=== PATIENT | female | born 1980 | race Caucasian/White ===

== ENCOUNTER 2018-03-25 13:42 | Emergency (ER) | payer MEDICAID, SELFPAY ==
[2018-03-25 13:46] VITALS: BP 133/96; PULSE 61; RESP 18; TEMP 36.1; O2SAT 97
--- NOTE | 2018-03-25 13:54 | DI.RPTCT_ITS ---
SYMPTOM/DIAGNOSIS: VOMITING, EPIGASTRIC ABD PAIN, H/O GASTRIC PERFORATION ABDOMEN AND PELVIC CT: CT scan of the abdomen and pelvis was performed following the uneventful administration of intravenous contrast material. Comparison is made with . Findings: The lung bases are clear. The liver is normal in size. No hepatic mass is seen. The gallbladder is negative by CT criteria. There is no biliary ductal dilatation. The portal and superior mesenteric veins are patent. The pancreas is unremarkable. Note is again made of heterogeneous enhancement of the spleen which appears stable. The kidneys show normal and symmetric enhancement. No evidence of a solid renal mass or obstruction. There is a 2 mm. stone in the mid pole of the left kidney. The urinary bladder is intact. The patient appears to be status post hysterectomy. The abdominal aorta is of normal caliber. No significant abdominal or pelvic adenopathy, ascites or pneumoperitoneum is seen. The bowel shows no evidence of obstruction or inflammation. There is a normal appendix present. The bones are intact. There is a stable fat density lesion in the left adrenal gland. The right adrenal gland is unremarkable. This finding is most suggestive of an adrenal myolipoma. IMPRESSION: 1. No acute abnormality. 2. Stable heterogeneous enhancement of the spleen. 3. Stable left adrenal myolipoma.
[2018-03-25] MEDS: Ondansetron 4 MG/2 ML VIAL IVP (14:36)
[2018-03-25] MEDS: MORPHine 10 MG/ML VIAL 4 MG IVP (14:37)
--- NOTE | 2018-03-25 14:38 | ED.GENADUL ---
Disposition Clinical Impression: Vomiting, Liver cyst Disposition: HOME Condition: Good Instructions: Acute Nausea and Vomiting (ED) Additional Instructions: Please stick with an easy diet over the next 48-72 hours. Please avoid any hot or spicy foods. Please stick to soups, mashed potatoes, bananas rice applesauce. Please take the medication as directed. If you notice any worsening of your symptoms, or any new symptoms such as vomiting, diarrhea, fever, chills, shortness of breath, chest pain, numbness, weakness, or fainting , please return immediately to the emergency department for reevaluation. Please follow up with your primary care provider as soon as possible for reassessment and reevaluation. As always, it was a pleasure participating in your medical care today. Prescriptions: Ondansetron HCl [Zofran] 4 mg PO Q6H #12 tablet Sucralfate [Carafate] 1 gm PO AC & HS #30 tab Referrals: Deyanira Marcus [Primary Care Provider] - Forms: Work Release Medical Decision Making - Medical Decision Making Is a 37-year-old female who presents for abdominal pain and vomiting for the last 24 hours. She has had roughly 48 episodes of vomiting per day. She has some associated epigastric pain. She has a history of gastric perforation in the past requiring surgical repair. Physical exam demonstrates a nonacute abdomen, no signs of rigid abdomen. We will rehydrate the patient, give Zofran, and assessed with a CT scan to evaluate for any acute abdominal pathology due to her surgical and problematic history. 5 PM The patient's laboratory workup has returned benign. Lipase, and bilirubin are normal. No significant leukocytosis. The patient's CT scan per virtual radiology shows no acute findings, there is chronic unchanged heterogenous attenuation of the liver possibly reflecting multiple underlying cysts. This appears to be stable since 2016. There is also a stable 1.4 cm adrenal myelolipoma. The patient is feeling much better at this time, she has had no continued vomiting. She has been able to tolerate p.o. well here in front of me. I feel that she is safe for discharge home with close follow-up with PCP. We will give her Zofran. We discussed red flags which to return the patient understands. Diagnosis gastritis and vomiting. I have extensively reviewed the treatment plan and discharge instructions with the patient and their family. I have addressed all patient concerns at this time. The patient and family was made aware of what symptoms to monitor for that would warrant a return to the emergency department. Discussed the plan with the patient and family, they demonstrate verbal understanding and agreement with our assessment and plan at this time. History of Present Illness - General Chief complaint: Nausea/Vomit/Diar Stated complaint: VOMITING Time Seen by Provider: 03/25/18 13:52 - History of Present Illness Initial comments: This is a pleasant 37-year-old female with past medical history of gastric ulcer with perforation and subsequent surgical revision, right-sided ACL repair and bilateral carpal tunnel repair who presents today for vomiting starting yesterday. She vomited 6-8 times yesterday and 4 times today. There is no blood in her vomit. No coffee-ground emesis. She has no associated diarrhea but does continue to have regular bowel movements. No blood noted in her stools. Her symptoms are not improved by anything. They do not appear to be worsened by anything. She has not been eating or drinking secondary to her chronic inconsistent nausea since her symptoms began. The patient does work at a local restaurant, however there are no other sick contacts, and she is not in contact with raw meat. She does admit to epigastric pain, but denies any radiation to her back neck chest lower abdomen. Patient denies any IV or illicit drug use. She denies any fevers chills numbness tingling or weakness. She denies any pertinent family history. She has no other complaints at this time. - Related Data Vitamin D 1 tab PO DAILY 06/30/16 Multivitamin [Multi-Vitamin Daily] 1 each PO DAILY 12/19/17 Acetaminophen [Acetaminophen Extra Strength] 500 mg PO Q6H PRN PRN #60 tablet 03/02/18 Ibuprofen 800 mg PO TID PRN PRN #60 tablet 03/02/18 Ondansetron HCl [Zofran] 4 mg PO Q6H #12 tablet 03/25/18 Sucralfate [Carafate] 1 gm PO AC & HS #30 tab 03/25/18 Allergies Allergy/AdvReac Type Severity Reaction Status Date / Time amoxicillin Allergy Severe Unverified 03/25/18 13:48 artichoke Allergy Severe ANAPHYLAXIS Unverified 03/25/18 13:48 Penicillins Allergy Intermediate HIVES Unverified 03/25/18 13:48 sodium hypochlorite solution Allergy Intermediate HIVES/SOB Unverified 03/25/18 13:48 [sodium hypochlorite] Review of Systems Other: 10 point review of systems was performed, pertinent positives and negatives are noted in the history of present illness. Past Medical History - Past Medical History Medical history: diabetes, GERD, hyperlipidemia, hypertension Surgical history: bilateral tubal ligation, , hysterectomy, other (multiple carpal tunnel surgery, knee surgery, T&A) - Social History Alcohol use: none Drug use: none General Exam - Other Other exam information: 1.Const: Well-nourished, Well-developed, appearing stated age 2.Eyes: PERRL, no conjunctival injection, and symmetrical lids. 3.ENT: Atraumatic external nose and ears. Dry MM. Neck: Symmetric, trachea midline, No thyromegaly. 4.CVS: +S1/S2, No murmurs or gallops. Peripheral pulses 2+ and equal in all extremities. Brisk capillary refill in all extremities. 5.RESP: Unlabored respiratory effort. Clear to auscultation bilaterally. No wheezes rales or rhonchi 6.GI: Soft, no guarding or rebound, no pain at McBurney's point, negative Peñaloza sign. Reproducible epigastric tenderness. No reproducible chest tenderness. No CVA tenderness or flank pain. Negative heel strike test. 7.MSK: Normocephalic/Atraumatic, Extremities w/o deformity or ttp No cyanosis or clubbing, Normal movement of all extremities 8.Skin: Warm, Dry. No rashes or lesions. 9.Neuro: manager asset management II-XII grossly intact. Sensation grossly intact, no focal neurologic deficits. 10.Psych: (AAO) x3. Appropriate mood and affect Course Vital Signs - 24 hr 03/25/18 13:46 Temperature 36.1 C L Pulse 61 Respiratory 18 Rate Blood Pressure 133/96 Pulse Oximetry 97
[2018-03-25] MEDS: Normal Saline 1,000 ML 2000 ML IV (14:40)
[2018-03-25 14:49] LABS: Abs Immature Grans 0.02 k/cumm (0.0-0.09); Absolute Basophil Count 0.04 k/cumm (0.0-0.2); Absolute Eosinophil Count 0.11 k/cumm (0.0-0.7); Absolute Lymphocyte Count 3.86 k/cumm (1.2-3.4); Absolute Monocyte Count 0.54 k/cumm (0.11-0.7); Basophils % 0.4; HGB 13.3 g/dL (12.0-15.5); Immature Grans % 0.2; Lymphocytes % 36.5; Mean Corp. HGB Concentration 34.1 g/dL (32.0-36.0); Mean Corpuscular Hemoglobin 29.2 pg (27.0-33.0); Mean Corpuscular Volume 85.7 fL (80-95); Mean Platelet Volume 10.6 fL (8.0-11.0); Monocytes % 5.1; Neutrophils % 56.8; Platelet Count 279 x1000/uL (130-400); RBC 4.55 m/cumm (4.00-5.20); RBC Distribution Width 12.5 % (11.7-14.6); White Blood Cell Count 10.57 k/cumm (4.4-10.8)
[2018-03-25 15:08] LABS: Bilirubin Negative (Negative); Blood Negative (Negative); Clarity Clear; Glucose Negative (Negative); Ketones Negative (Negative); Leukocyte Esterase Negative (Negative); Nitrite Negative (Negative); Urobilinogen 0.2 EU/dL (Up TO 0.2); pH 5.5 (5-8)
[2018-03-25 15:10] LABS: ALT 57 U/L (12-78); AST 32 U/L (15-37); Albumin 3.7 g/dL (3.4-5.0); Alkaline Phosphatase 89 U/L (46-116); Anion Gap 7.1 mmol/L (3-11); BUN 15 mg/dL (7-18); Bilirubin, Total 0.3 mg/dL (0.2-1.0); CO2 27.9 mmol/L (21.0-32.0); CREATININE 0.64 mg/dL (0.55-1.02); Calcium 9.5 mg/dL (8.5-10.1); Chloride 103 mmol/L (98-107); Glucose 100 mg/dL (70-100); Lipase 80 U/L (73-393); Potassium 4.1 mmol/L (3.5-5.1); Sodium 138 mmol/L (136-145); Total Protein 7.9 g/dL (6.4-8.2)
[2018-03-25] MEDS: Omnipaque 350 MG/ML 100 ML BTL IJ (15:13)
[2018-03-25] MEDS: Breeza Beverage 473 ML BTL PO (15:14)
[2018-03-25] MEDS: Omnipaque 350 MG/ML 50 ML BTL PO (15:14)
--- NOTE | 2018-03-25 16:19 | DI.VRAD_ITS ---
EXAM: CT Abdomen and Pelvis With Intravenous Contrast CLINICAL HISTORY: 37 years old, female; Pain; Abdominal pain; Epigastric; Patient HX: Vomiting, epigastric abdominal pain; Additional info: HX of gastric perf TECHNIQUE: Axial computed tomography images of the abdomen and pelvis with intravenous contrast. Coronal and sagittal reformatted images were created and reviewed. COMPARISON: CT - ABD PELVIS WITH CONTRAST 10/08/2016 9:27 AM FINDINGS: Lung bases: Unremarkable. No mass. No consolidation. ABDOMEN: Liver: Chronic unchanged heterogeneous attenuation of the liver, possibly reflecting multiple underlying cysts. Gallbladder and bile ducts: Unremarkable. No calcified stones. No ductal dilation. Pancreas: Unremarkable. No mass. No ductal dilation. Spleen: Unremarkable. No splenomegaly. Adrenals: Stable 1.4 cm fat density lesion in the left adrenal gland, likely a myelolipoma. Kidneys and ureters: Unremarkable. No solid mass. No hydronephrosis. Stomach and bowel: Unremarkable. No obstruction. No mucosal thickening. PELVIS: Appendix: The appendix is normal. Bladder: Unremarkable. No mass. Reproductive: The uterus is surgically absent. ABDOMEN and PELVIS: Intraperitoneal space: Unremarkable. No free air. No significant fluid collection. Bones/joints: No acute fracture. No dislocation. Soft tissues: Unremarkable. Vasculature: Unremarkable. No abdominal aortic aneurysm. Lymph nodes: Unremarkable. No enlarged lymph nodes. IMPRESSION: 1. No acute findings. 2. Chronic unchanged heterogeneous attenuation of the liver, possibly reflecting multiple underlying cysts. Although this is stable since 2016, if clinical concern recommend reevaluation with MRI abdomen. 3. Stable 1.4 cm left adrenal myelolipoma. Dictated and Authenticated by: Shlomo Turcios MD. Ordering:NATHAN MOLINA MD
[2018-03-25 16:47] VITALS: BP 106/40; PULSE 64; RESP 16; TEMP 207.5; TEMP 97.5; O2SAT 96
== END 2018-03-25 17:18 | disposition home or self-care (01) ==
PROVIDERS: Emergency Provider Student in an Organized Health Care Education/Training Program; PCP Nurse Practitioner Family
DX: R11.2 Nausea with vomiting, unspecified (principal); K29.00 Acute gastritis without bleeding; K76.89 Other specified diseases of liver; R10.13 Epigastric pain; E11.9 Type 2 diabetes mellitus without complications; I10 Essential (primary) hypertension
CPT/HCPCS: 36415; 80053; 83690; 96361; 96374; 96375; 99285; 74177; 81003; 85025; 99284; J2270; J2405; J3490; Q9967

== ENCOUNTER 2018-04-12 16:46 | Emergency (ER) | payer MEDICAID, SELFPAY ==
[2018-04-12 16:52] VITALS: BP 136/64; PULSE 79; RESP 16; TEMP 36.5; O2SAT 98
--- NOTE | 2018-04-12 17:06 | W.ED.GENAD ---
Discharge Plan Disposition Patient Disposition: HOME Condition: Stable Discharge Details Chief Complaint: Nausea/Vomit/Diar Clinical Impression: Nausea vomiting and diarrhea Primary Care Provider: Deyanira Marcus ED Provider: Alejandrina Angel Home Meds and New Rx's Prescriptions: New ondansetron [Zofran ODT] 4 mg tablet,disintegrating 4 mg PO TID PRN (Reason: nausea and vomiting) 3 Days Qty: 8 RF: 0 Continue multivitamin [Daily Multi-Vitamin] 1 EACH tablet 1 ea PO DAILY RF: 0 cholecalciferol (vitamin D3) 1,000 UNITS tablet 1 tab PO DAILY RF: 0 ibuprofen 800 MG tablet 800 mg PO TID PRN PRNQty: 60 RF: 0 acetaminophen [Acetaminophen Extra Strength] 500 MG tablet 500 mg PO Q6H PRN PRNQty: 60 RF: 3 sucralfate 1 GM tablet 1 gm PO AC & HS Qty: 30 RF: 0 Discontinued ondansetron HCl [Zofran] 4 MG tablet 4 mg PO Q6H Qty: 12 RF: 0 Discharge Instructions Instructions: Ondansetron (By mouth), Acute Nausea and Vomiting (ED), Acute Diarrhea (ED) Additional Instructions: Please return immediately to the emergency department if you develop any new or worsening symptoms or if you become otherwise concerned. It is extremely important that you make an appointment to be seen by your primary care doctor within the next week in follow-up for this visit. Stand Alone Forms: Work Release Referrals: Deyanira Marcus [Primary Care Provider] - Discharge Data Discharge Date/Time-TO BE ENTERED AT DEPARTURE: 04/12/18 21:06 Medical Decision Making MDM Narrative Medical decision making narrative: Dawn Dunn is a 37 y/o woman with h/o DM controlled by diet, HLD presenting to the emergency department with 3 weeks of vomiting, diarrhea, and intermittent crampy abdominal pain. Pt is very well-appearing on exam. Abdominal exam benign, neg McBpt TTP, neg murphys. Pt declines rectal exam. Concern for gastroenteritis vs IBD vs other. Doubt acute emergent intra-abdominal process at this time. Exam/hx not c/w sepsis or other acute life-threatening etiology. Plan for screening labs, IVF hydration, zofran, stool cx. Will monitor and reassess. Labs non-diagnostic: leukocytosis. LFTs, lipase, UA okay. Upreg neg per nursing. On reassessment Pt reports feeling better after fluids and zofran. No vomiting or diarrhea during ED visit. Passed PO challenge. Discussed unclear etiology at this time, CT risks/benefits discussed, unlikely to be diagnostic given recent neg CT, no abd TTP. Pt could not provide stool sample, will give sample cup that she can return to lab for testing. Rx zofran. lengtyh discussion with Pt re: RTED precautions and importance of outpt f/u with PCP. Pt is amenable to the plan. Medical Records Medical records reviewed: Yes I reviewed the patient's medical records. HPI - General Adult General Mode of arrival: ambulatory. Date/Time Provider Initiated Documentation: 04/12/18 17:06. Limitations to Documentation: no limitations. Information obtained by: patient, family, RN notes reviewed and old records reviewed. HPI Narrative: Dawn Dunn is a 37 y/o woman without reported h/o major medical problems presenting to the emergency department with 3 weeks of vomiting and diarrhea. Pt reports that she has had daily vomiting and watery diarrhea essentially unchanged for the past 3 weeks. She has been seen here for this with CT a/p negative, and discharged to home, and also has seen her PCP. Emesis is watery and clear. Diarrhea is watery light brown. No dark or bloody stools/emesis. Pt reports some crampy abdominal pain at times, but no current pain. No other pain. Has had stool cultures at this time. Zofran at home has been helpful. Has been able to drink fluids without vomiting. No fevers, no rash, no SOB, no cough. No recent travel or drinking water from unusual source. Has not taken abx for this. Related Data Home Medications Medication Instructions Recorded Confirmed cholecalciferol (vitamin D3) 1 tab PO DAILY 06/30/16 04/12/18 multivitamin [Daily Multi-Vitamin] 1 ea PO DAILY 12/19/17 04/12/18 Previous Rx's Medication Instructions Recorded acetaminophen [Acetaminophen Extra 500 mg PO Q6H PRN PRN #60 tablet 03/02/18 Strength] ibuprofen 800 mg PO TID PRN PRN #60 tablet 03/02/18 sucralfate 1 gm PO AC & HS #30 tab 03/25/18 ondansetron [Zofran ODT] 4 mg PO TID PRN 3 Days #8 tab 04/12/18 Allergies Allergy/AdvReac Type Severity Reaction Status Date / Time amoxicillin Allergy Severe Unverified 04/12/18 16:55 artichoke Allergy Severe ANAPHYLAXIS Unverified 04/12/18 16:55 Penicillins Allergy Intermediate HIVES Unverified 04/12/18 16:55 sodium hypochlorite solution Allergy Intermediate HIVES/SOB Unverified 04/12/18 16:55 [sodium hypochlorite] General Stated Complaint: Nausea/Vomit/Diar MIKE: 3 Review of Systems Review of Systems Constitutional: denies fevers Eyes: denies eye pain ENT: denies facial pain, dental pain, sore throat Cardiovascular: denies chest pain, edema Respiratory: denies SOB, cough GI: denies melena, hematochezia, hematemesis; reports abdominal pain, vomiting, diarrhea : denies flank pain, dysuria MSK: denies back pain, neck pain, arhtralgias, myalgias Skin: denies rash Neuro: denies headaches, lightheadedness, weakness PFSH Medical History Anxiety and depression Asthma Diabetes mellitus, type 2 Elevated lipids Migraine Obstructive sleep apnea syndrome Polycystic ovaries Social History Smoking/Tobacco Use Status: Former Tobacco Use Surgical History section Colonoscopy - MAC (11/26/16) EGD - MAC (11/26/16) Endoscopic Carpal Tunnel release (01/14/09) Ligation of fallopian tube Open Carpal Tunnel release (10/23/12) Vaginal hysterectomy anterior cruciate ligament reconstruction Exam Narrative Exam Narrative: Constitutional: well and [id number], pleasant, conversing normally HENT: head atraumatic, normocephalic normal inspection, mucous membranes moist Eyes: conjunctiva normal, sclera normal, pupils 3mm b/l Neck: no stridor, normal ROM, trachea midline Chest: normal inspection Resp: normal work of breathing, LCTAB Cardio: normal rate, normal rhythm, no murmur appreciated GI: abdomen soft, non-tender, non-distended Back: normal inspection, no rash Skin: warm, dry, normal color, no rash Neuro: alert, not altered, grossly non-focal, normal tone Ext: no edema Psych: normal mood, normal affect, normal behavior Course Vital Signs Temperature 36.5 C 04/12/18 16:52 Pulse 79 04/12/18 16:52 Respiratory Rate 16 04/12/18 16:52 Blood Pressure 136/64 04/12/18 16:52 Pulse Oximetry 98 04/12/18 16:52 Temperature 36.5 C 04/12/18 16:52 Pulse 79 04/12/18 16:52 Respiratory Rate 16 04/12/18 16:52 Blood Pressure 136/64 04/12/18 16:52 Pulse Oximetry 98 04/12/18 16:52
[2018-04-12] MEDS: Normal Saline 1,000 ML 1000 ML IV (18:10)
[2018-04-12 19:25] LABS: Bilirubin Negative (Negative); Blood Negative (Negative); Clarity Clear; Glucose Negative (Negative); Ketones Negative (Negative); Leukocyte Esterase Negative (Negative); Nitrite Negative (Negative); Urobilinogen 0.2 EU/dL (Up TO 0.2); pH 7.5 (5-8)
[2018-04-12 19:25] LABS: Abs Immature Grans 0.03 k/cumm (0.0-0.09); Absolute Basophil Count 0.03 k/cumm (0.0-0.2); Absolute Monocyte Count 0.91 k/cumm (0.11-0.7); Basophils % 0.2; Eosinophils % 0.7; HCT 40.5 % (36.0-46.0); HGB 13.9 g/dL (12.0-15.5); Immature Grans % 0.2; Lymphocytes % 33.4; Mean Corp. HGB Concentration 34.3 g/dL (32.0-36.0); Mean Corpuscular Hemoglobin 29.2 pg (27.0-33.0); Mean Corpuscular Volume 85.1 fL (80-95); Mean Platelet Volume 10.5 fL (8.0-11.0); Monocytes % 6.5; Platelet Count 286 x1000/uL (130-400); RBC 4.76 m/cumm (4.00-5.20); RBC Distribution Width 12.8 % (11.7-14.6); White Blood Cell Count 14.07 k/cumm (4.4-10.8)
[2018-04-12 19:51] LABS: ALT 45 U/L (12-78); AST 26 U/L (15-37); Albumin 3.7 g/dL (3.4-5.0); Alkaline Phosphatase 82 U/L (46-116); Anion Gap 5.9 mmol/L (3-11); BUN 11 mg/dL (7-18); Bilirubin, Total 0.4 mg/dL (0.2-1.0); CO2 29.1 mmol/L (21.0-32.0); CREATININE 0.66 mg/dL (0.55-1.02); Chloride 104 mmol/L (98-107); Glucose 86 mg/dL (70-100); Potassium 3.7 mmol/L (3.5-5.1); Sodium 139 mmol/L (136-145); Total Protein 8.4 g/dL (6.4-8.2)
[2018-04-12 20:00] VITALS: BP 140/77; PULSE 80; RESP 18; TEMP 36.3; O2SAT 96
[2018-04-12 20:00] LABS: Lipase 95 U/L (73-393)
[2018-04-12 21:09] VITALS: BP 135/66; PULSE 71; RESP 16; TEMP 36.5; O2SAT 98
--- NOTE | 2018-04-13 09:52 | ED.GENADUL_ITS ---
Discharge Plan Disposition Patient Disposition: HOME Condition: Stable Discharge Details Chief Complaint: Nausea/Vomit/Diar Clinical Impression: Nausea vomiting and diarrhea Primary Care Provider: Deyanira Marcus ED Provider: Alejandrina Angel Home Meds and New Rx's Prescriptions: New ondansetron [Zofran ODT] 4 mg tablet,disintegrating 4 mg PO TID PRN (Reason: nausea and vomiting) 3 Days Qty: 8 RF: 0 Continue multivitamin [Daily Multi-Vitamin] 1 EACH tablet 1 ea PO DAILY RF: 0 cholecalciferol (vitamin D3) 1,000 UNITS tablet 1 tab PO DAILY RF: 0 ibuprofen 800 MG tablet 800 mg PO TID PRN PRNQty: 60 RF: 0 acetaminophen [Acetaminophen Extra Strength] 500 MG tablet 500 mg PO Q6H PRN PRNQty: 60 RF: 3 sucralfate 1 GM tablet 1 gm PO AC & HS Qty: 30 RF: 0 Discontinued ondansetron HCl [Zofran] 4 MG tablet 4 mg PO Q6H Qty: 12 RF: 0 Discharge Instructions Instructions: Ondansetron (By mouth), Acute Nausea and Vomiting (ED), Acute Diarrhea (ED) Additional Instructions: Please return immediately to the emergency department if you develop any new or worsening symptoms or if you become otherwise concerned. It is extremely important that you make an appointment to be seen by your primary care doctor within the next week in follow-up for this visit. Stand Alone Forms: Work Release Referrals: Deyanira Marcus [Primary Care Provider] - Discharge Data Discharge Date/Time-TO BE ENTERED AT DEPARTURE: 04/12/18 21:06 Medical Decision Making MDM Narrative Medical decision making narrative: Dawn Dunn is a 37 y/o woman with h/o DM controlled by diet, HLD presenting to the emergency department with 3 weeks of vomiting, diarrhea, and intermittent crampy abdominal pain. Pt is very well- appearing on exam. Abdominal exam benign, neg McBpt TTP, neg murphys. Pt declines rectal exam. Concern for gastroenteritis vs IBD vs other. Doubt acute emergent intra-abdominal process at this time. Exam/hx not c/w sepsis or other acute life-threatening etiology. Plan for screening labs, IVF hydration, zofran , stool cx. Will monitor and reassess. Labs non-diagnostic: leukocytosis. LFTs, lipase, UA okay. Upreg neg per nursing. On reassessment Pt reports feeling better after fluids and zofran. No vomiting or diarrhea during ED visit. Passed PO challenge. Discussed unclear etiology at this time, CT risks/benefits discussed, unlikely to be diagnostic given recent neg CT, no abd TTP. Pt could not provide stool sample, will give sample cup that she can return to lab for testing. Rx zofran. lengtyh discussion with Pt re: RTED precautions and importance of outpt f/u with PCP. Pt is amenable to the plan. Medical Records Medical records reviewed: Yes I reviewed the patient's medical records. HPI - General Adult General Mode of arrival: ambulatory . Date/Time Provider Initiated Documentation: 04/12/18 17:06 . Limitations to Documentation: no limitations . Information obtained by: patient, family, RN notes reviewed and old records reviewed . HPI Narrative: Dawn Dunn is a 37 y/o woman without reported h/o major medical problems presenting to the emergency department with 3 weeks of vomiting and diarrhea. Pt reports that she has had daily vomiting and watery diarrhea essentially unchanged for the past 3 weeks. She has been seen here for this with CT a/p negative, and discharged to home, and also has seen her PCP. Emesis is watery and clear. Diarrhea is watery light brown. No dark or bloody stools/emesis. Pt reports some crampy abdominal pain at times, but no current pain. No other pain. Has had stool cultures at this time. Zofran at home has been helpful. Has been able to drink fluids without vomiting. No fevers, no rash , no SOB, no cough. No recent travel or drinking water from unusual source. Has not taken abx for this. Related Data Home Medications Medication Instructions Recorded Confirmed cholecalciferol (vitamin D3) 1 tab PO DAILY 06/30/16 04/12/18 multivitamin [Daily Multi-Vitamin] 1 ea PO DAILY 12/19/17 04/12/18 Previous Rx's Medication Instructions Recorded acetaminophen [Acetaminophen Extra 500 mg PO Q6H PRN PRN #60 tablet 03/02/18 Strength] ibuprofen 800 mg PO TID PRN PRN #60 tablet 03/02/18 sucralfate 1 gm PO AC & HS #30 tab 03/25/18 ondansetron [Zofran ODT] 4 mg PO TID PRN 3 Days #8 tab 04/12/18 Allergies Allergy/AdvReac Type Severity Reaction Status Date / Time amoxicillin Allergy Severe Unverified 04/12/18 16:55 artichoke Allergy Severe ANAPHYLAXIS Unverified 04/12/18 16:55 Penicillins Allergy Intermediate HIVES Unverified 04/12/18 16:55 sodium hypochlorite solution Allergy Intermediate HIVES/SOB Unverified 04/12/18 16:55 [sodium hypochlorite] General Stated Complaint: Nausea/Vomit/Diar MIKE: 3 Review of Systems Review of Systems Constitutional: denies fevers Eyes: denies eye pain ENT: denies facial pain, dental pain, sore throat Cardiovascular: denies chest pain, edema Respiratory: denies SOB, cough GI: denies melena, hematochezia, hematemesis; reports abdominal pain, vomiting, diarrhea : denies flank pain, dysuria MSK: denies back pain, neck pain, arhtralgias, myalgias Skin: denies rash Neuro: denies headaches, lightheadedness, weakness PFSH Medical History Anxiety and depression Asthma Diabetes mellitus, type 2 Elevated lipids Migraine Obstructive sleep apnea syndrome Polycystic ovaries Social History Smoking/Tobacco Use Status: Former Tobacco Use Surgical History section Colonoscopy - MAC (11/26/16) EGD - MAC (11/26/16) Endoscopic Carpal Tunnel release (01/14/09) Ligation of fallopian tube Open Carpal Tunnel release (10/23/12) Vaginal hysterectomy anterior cruciate ligament reconstruction Exam Narrative Exam Narrative: Constitutional: well and [id number], pleasant, conversing normally HENT: head atraumatic, normocephalic normal inspection, mucous membranes moist Eyes: conjunctiva normal, sclera normal, pupils 3mm b/l Neck: no stridor, normal ROM, trachea midline Chest: normal inspection Resp: normal work of breathing, LCTAB Cardio: normal rate, normal rhythm, no murmur appreciated GI: abdomen soft, non-tender, non-distended Back: normal inspection, no rash Skin: warm, dry, normal color, no rash Neuro: alert, not altered, grossly non-focal, normal tone Ext: no edema Psych: normal mood, normal affect, normal behavior Course Vital Signs Temperature 36.5 C 04/12/18 16:52 Pulse 79 04/12/18 16:52 Respiratory Rate 16 04/12/18 16:52 Blood Pressure 136/64 04/12/18 16:52 Pulse Oximetry 98 04/12/18 16:52 Temperature 36.5 C 04/12/18 16:52 Pulse 79 04/12/18 16:52 Respiratory Rate 16 04/12/18 16:52 Blood Pressure 136/64 04/12/18 16:52 Pulse Oximetry 98 04/12/18 16:52
== END 2018-04-12 21:06 | disposition home or self-care (01) ==
PROVIDERS: Emergency Provider Student in an Organized Health Care Education/Training Program; PCP Nurse Practitioner Family
DX: R11.2 Nausea with vomiting, unspecified (principal); R19.7 Diarrhea, unspecified; D72.829 Elevated white blood cell count, unspecified; E11.9 Type 2 diabetes mellitus without complications
CPT/HCPCS: 36415; 80053; 81025; 83690; 87505; 96360; 99284; 81003; 85025; 87324

== ENCOUNTER 2018-04-13 11:05 | Outpatient (REF) | payer MEDICAID, SELFPAY ==
[2018-04-14 11:44] LABS: Campylobacter PCR SEE COMMENTS; Salmonella PCR SEE COMMENTS; Shiga Toxin PCR SEE COMMENTS; Shigella/Enteroinvasive Ecoli SEE COMMENTS
== END 2018-04-13 11:25 ==
LOC: LBN 11:05
PROVIDERS: PCP Nurse Practitioner Family; Visit Provider Student in an Organized Health Care Education/Training Program
DX: R19.7 Diarrhea, unspecified (principal); R10.84 Generalized abdominal pain; R11.10 Vomiting, unspecified
CPT/HCPCS: 87505; 87324

== ENCOUNTER 2018-04-24 18:00 | Outpatient (REF) | payer MEDICAID, SELFPAY ==
[2018-04-24 22:51] LABS: TSH (W/Ref FT4) 1.04 uIU/mL (0.358-3.74)
== END 2018-04-24 18:20 ==
LOC: NCHCN 18:00
PROVIDERS: PCP Nurse Practitioner Family; Visit Provider Nurse Practitioner Family
DX: R11.2 Nausea with vomiting, unspecified (principal)
CPT/HCPCS: 84443

== ENCOUNTER 2018-05-29 11:22 | Outpatient (CLI) | payer MEDICAID, SELFPAY ==
--- NOTE | 2018-05-29 11:17 | DI.RAD_ITS ---
SYMPTOM/DIAGNOSIS: RT WRIST PAIN CERVICAL SPINE: AP, lateral and bilateral oblique views were obtained. Comparison CT scan is . There is normal alignment of the cervical spine. The odontoid appears grossly unremarkable on the AP and lateral views. No acute fractures or subluxations are seen. No significant neural foraminal encroachment is identified. The bones are normally mineralized. The prevertebral soft tissues are unremarkable. IMPRESSION: Negative cervical spine. If there are radicular concerns, an MRI should be considered for further evaluation.
== END 2018-05-29 11:42 ==
PROVIDERS: PCP Nurse Practitioner Family; Visit Provider Student in an Organized Health Care Education/Training Program
DX: M25.531 Pain in right wrist (principal); G56.03 Carpal tunnel syndrome, bilateral upper limbs
CPT/HCPCS: 72050

== ENCOUNTER 2018-07-06 18:24 | Emergency (ER) | payer MEDICAID, SELFPAY ==
[2018-07-06 18:30] VITALS: BP 142/97; PULSE 82; RESP 17; TEMP 36.2; O2SAT 97
--- NOTE | 2018-07-06 18:37 | W.ED.GENAD ---
Discharge Plan Disposition Patient Disposition: HOME Condition: Good Discharge Details Chief Complaint: Nausea/Vomit/Diar Clinical Impression: Nausea & vomiting Primary Care Provider: Deyanira Marcus ED Provider: Dustin Blanco Home Meds and New Rx's Prescriptions: New ondansetron HCl [Zofran] 4 mg tablet 4 mg PO TID PRN (Reason: nausea and vomiting) 5 Days RF: 0 Continue multivitamin [Daily Multi-Vitamin] 1 EACH tablet 1 ea PO DAILY RF: 0 cholecalciferol (vitamin D3) 1,000 UNITS tablet 1 tab PO DAILY RF: 0 ibuprofen 800 MG tablet 800 mg PO TID PRN PRNQty: 60 RF: 0 acetaminophen [Acetaminophen Extra Strength] 500 MG tablet 500 mg PO Q6H PRN PRNQty: 60 RF: 3 sucralfate 1 GM tablet 1 gm PO AC & HS Qty: 30 RF: 0 Discharge Instructions Additional Instructions: follow up with your primary care provider if symptoms continue next week if you have severe abdominal pain or persistent vomit return to the emergency department Stand Alone Forms: Work Release Medical Decision Making pt states today she has had chills and intermittent nausea and vomit. Denies abdominal pain, chset pain, sob, recent travel or new foods that she is aware of. She denies any new meds. She has no abdominal tenderness on exam or distention. She is well hydrated on exam with stable vital signs so do not feel IV fluids indicated. She has tried zofran at home with minimal relief, will trymetoclopramide. She has no exam findings to suggest acute abdominal pathology so do not feel workup for pancreatitis or surgical pathology at this time indicated. No chest pain or pressure to suggest acs. pt given zofran as well and now is tolerating PO. Still no abdominal pain so do not feel labs or imaging dindicated Differential Diagnosis viral illness, food related illness HPI General Mode of arrival: ambulatory. Date/Time Provider Initiated Documentation: 07/06/18 18:26. Limitations to Documentation: no limitations. Information obtained by: patient. History of Present Illness 38 year old F presents to the emergency department with the chief complaint of nausea and vomit, described as moderate, with intensity rated at 4. Patient reports no radiation. Patient started experiencing this day(s) (1) and it has been constant. No relieving factors improve symptom(s), No exacerbating factors reported . Patient did receive the following treatments prior to arrival, none Related Data Home Medications Medication Instructions Recorded Confirmed cholecalciferol (vitamin D3) 1 tab PO DAILY 06/30/16 04/12/18 multivitamin [Daily Multi-Vitamin] 1 ea PO DAILY 12/19/17 04/12/18 acetaminophen [Acetaminophen Extra 500 mg PO Q6H PRN PRN #60 tablet 03/02/18 04/12/18 Strength] ibuprofen 800 mg PO TID PRN PRN #60 tablet 03/02/18 04/12/18 sucralfate 1 gm PO AC & HS #30 tab 03/25/18 04/12/18 ondansetron HCl [Zofran] 4 mg PO TID PRN 5 Days tab 07/06/18 Previous Rx's Medication Instructions Recorded acetaminophen [Acetaminophen Extra 500 mg PO Q6H PRN PRN #60 tablet 03/02/18 Strength] ibuprofen 800 mg PO TID PRN PRN #60 tablet 03/02/18 sucralfate 1 gm PO AC & HS #30 tab 03/25/18 ondansetron HCl [Zofran] 4 mg PO TID PRN 5 Days tab 07/06/18 Allergies Allergy/AdvReac Type Severity Reaction Status Date / Time amoxicillin Allergy Severe Unverified 04/12/18 16:55 artichoke Allergy Severe ANAPHYLAXIS Unverified 04/12/18 16:55 Penicillins Allergy Intermediate HIVES Unverified 04/12/18 16:55 sodium hypochlorite solution Allergy Intermediate HIVES/SOB Unverified 04/12/18 16:55 [sodium hypochlorite] General Stated Complaint: Nausea/Vomit/Diar MIKE: 5 Review of Systems Review of Systems All systems reviewed & are unremarkable except as noted in HPI and below Constitutional Denies fever(s) and Denies weakness ENT Denies change in voice Cardiovascular Denies chest pain and Denies dyspnea Respiratory Denies dyspnea Gastrointestinal Denies abdominal pain Genitourinary Denies dysuria Musculoskeletal Denies joint swelling Integumentary/Breasts Denies rash Neurologic Denies weakness PFSH Anxiety and depression Asthma Diabetes mellitus, type 2 Elevated lipids Migraine Obstructive sleep apnea syndrome Polycystic ovaries Medical History Anxiety and depression Asthma Diabetes mellitus, type 2 Elevated lipids Migraine Obstructive sleep apnea syndrome Polycystic ovaries Social History Smoking/Tobacco Use Status: Former Tobacco Use Surgical History section Colonoscopy - MAC (11/26/16) EGD - MAC (11/26/16) Endoscopic Carpal Tunnel release (01/14/09) Ligation of fallopian tube Open Carpal Tunnel release (10/23/12) Vaginal hysterectomy anterior cruciate ligament reconstruction Social History Smoking/Tobacco Use Status: Former Tobacco Use Exam Const General: no acute distress Orientation: alert HENMT Head: normal to inspection Ears: external ears normal General nose exam: external nose normal Mouth: moist mucous membranes Eyes General: appearance normal, both eyes and all related structures Neck Neck: normal visual inspection Resp Effort & Inspection: normal respiratory effort and able to speak in complete sentences Cardio Rate: regular rate Skin General skin exam: no rashes or lesions noted Neuro General: alert and oriented x3 Extrem General: normal to inspection Psych Mental Status: mental status grossly normal Course Vital Signs Temperature 36.2 C L 07/06/18 18:30 Pulse 82 07/06/18 18:30 Respiratory Rate 17 07/06/18 18:30 Blood Pressure 142/97 H 07/06/18 18:30 Pulse Oximetry 97 07/06/18 18:30 Temperature 36.2 C L 07/06/18 18:30 Temperature Source Skin 07/06/18 18:30 Pulse 82 07/06/18 18:30 Respiratory Rate 17 07/06/18 18:30 Respiratory Effort 07/06/18 18:34 Blood Pressure 142/97 H 07/06/18 18:30 Blood Pressure Position Sitting 07/06/18 18:30 Pulse Oximetry 97 07/06/18 18:30 Oxygen Delivery Method Room Air 07/06/18 18:30 Oxygen Flow Rate 0 07/06/18 18:30 Pain Level 0 07/06/18 18:30
[2018-07-06] MEDS: Metoclopramide 10 MG TAB PO (18:41)
[2018-07-06] MEDS: Ondansetron O.D.T. 4 MG TABEF PO (18:56)
[2018-07-06 19:22] VITALS: TEMP 37.2
== END 2018-07-06 19:22 | disposition home or self-care (01) ==
PROVIDERS: Emergency Provider Emergency Medicine; PCP Nurse Practitioner Family
DX: R11.2 Nausea with vomiting, unspecified (principal); R50.9 Fever, unspecified; E11.9 Type 2 diabetes mellitus without complications
CPT/HCPCS: 99283

== ENCOUNTER 2018-08-08 16:28 | Outpatient (REF) | payer MEDICAID, SELFPAY ==
[2018-08-08 21:30] LABS: Abs Immature Grans 0.02 k/cumm (0.0-0.09); Absolute Basophil Count 0.03 k/cumm (0.0-0.2); Absolute Eosinophil Count 0.09 k/cumm (0.0-0.7); Absolute Lymphocyte Count 4.61 k/cumm (1.2-3.4); Absolute Monocyte Count 0.83 k/cumm (0.11-0.7); Basophils % 0.3; Eosinophils % 0.8; HCT 44.9 % (36.0-46.0); HGB 14.9 g/dL (12.0-15.5); Immature Grans % 0.2; Lymphocytes % 42.3; Mean Corp. HGB Concentration 33.2 g/dL (32.0-36.0); Mean Corpuscular Hemoglobin 29.2 pg (27.0-33.0); Mean Platelet Volume 11.8 fL (8.0-11.0); Monocytes % 7.6; Neutrophils % 48.8; Platelet Count 305 x1000/uL (130-400); RBC Distribution Width 12.9 % (11.7-14.6); White Blood Cell Count 10.91 k/cumm (4.4-10.8)
[2018-08-08 21:57] LABS: Absolute Neutrophil Count 5.32 k/cumm (1.2-6.7)
[2018-08-08 22:02] LABS: Iron 90 ug/dL (50-175); Total Iron Binding Capacity 299 ug/dL (250-450); Transferrin Sat 30 % (15-50)
[2018-08-08 22:13] LABS: Anion Gap 8.1 mmol/L (3-11); BUN 11 mg/dL (7-18); CO2 29.9 mmol/L (21.0-32.0); Calcium 9.6 mg/dL (8.5-10.1); Chloride 102 mmol/L (98-107); Ferritin 177 ng/mL (8-388); Glucose 143 mg/dL (70-100); Magnesium 1.9 mg/dL (1.8-2.4); Potassium 4.4 mmol/L (3.5-5.1); Sodium 140 mmol/L (136-145); TSH (W/Ref FT4) 1.35 uIU/mL (0.358-3.74)
== END 2018-08-08 16:48 ==
LOC: NCHCN 16:28
PROVIDERS: PCP Nurse Practitioner Family; Visit Provider Nurse Practitioner Family
DX: R42 Dizziness and giddiness (principal); R11.2 Nausea with vomiting, unspecified
CPT/HCPCS: 80048; 82728; 83540; 83550; 83735; 84443; 85025

== ENCOUNTER 2018-08-21 14:19 | Emergency (ER) | payer MEDICAID, SELFPAY ==
[2018-08-21 14:25] VITALS: BP 128/46; PULSE 52; RESP 16; TEMP 37; O2SAT 98
--- NOTE | 2018-08-21 14:49 | W.ED.GENAD ---
Discharge Plan Disposition Patient Disposition: HOME Discharge Details Chief Complaint: Orthopedic Clinical Impression: Frostbite of finger of right hand, Frostnip Primary Care Provider: Deyanira Marcus ED Provider: Jeanmarie Angel Home Meds and New Rx's Prescriptions: Continued multivitamin [Daily Multi-Vitamin] 1 EACH tablet 1 ea PO DAILY RF: 0 ibuprofen 800 MG tablet 800 mg PO TID PRN PRNQty: 60 RF: 0 acetaminophen [Acetaminophen Extra Strength] 500 MG tablet 500 mg PO Q6H PRN PRNQty: 60 RF: 3 Discharge Instructions Instructions: Frostbite (ED) Additional Instructions: Keep fingers and toes warm. DO NOT ALLOW ANY EXPOSURE TO COLD. Please contact your primary care physician to arrange follow-up. Return to the ER for any worsening or new concerning symptoms. Referrals: Deyanira Marcus [Primary Care Provider] - Medical Decision Making 38-year-old female here with small area of frostbite of her distal right fourth digit and likely frostnip of her left first and second toes. Nonocclusive dressing applied to right fourth digit. I advised patient to follow-up with her primary care physician and to protect digits and protect from additional exposure. Patient was instructed to return for any worsening or new concerning symptoms. HPI General Mode of arrival: ambulatory. Date/Time Provider Initiated Documentation: 08/21/18 14:23. Limitations to Documentation: no limitations. Information obtained by: patient. HPI Narrative: 38-year-old female presents with chief complaint of cold exposure injury. Patient notes she was outside [facility] earlier today and noticed that her right fingers and toes were hurting her. She went inside and noticed white skin discoloration to her right fourth digit as well as her left first and second toes. She warmed her extremities up in a warm bath. Her toes have had return of color but are still painful. Her right fourth digit has continued to have a small area of discoloration and is painful. Pain is moderate. Worse on palpation. Related Data Home Medications Medication Instructions Recorded Confirmed multivitamin [Daily Multi-Vitamin] 1 ea PO DAILY 12/19/17 08/21/18 acetaminophen [Acetaminophen Extra 500 mg PO Q6H PRN PRN #60 tablet 03/02/18 08/21/18 Strength] ibuprofen 800 mg PO TID PRN PRN #60 tablet 03/02/18 08/21/18 Previous Rx's Medication Instructions Recorded acetaminophen [Acetaminophen Extra 500 mg PO Q6H PRN PRN #60 tablet 03/02/18 Strength] ibuprofen 800 mg PO TID PRN PRN #60 tablet 03/02/18 Allergies Allergy/AdvReac Type Severity Reaction Status Date / Time amoxicillin Allergy Severe Unverified 08/21/18 14:28 artichoke Allergy Severe ANAPHYLAXIS Unverified 08/21/18 14:28 Penicillins Allergy Intermediate HIVES Unverified 08/21/18 14:28 sodium hypochlorite solution Allergy Intermediate HIVES/SOB Unverified 08/21/18 14:28 [sodium hypochlorite] General Stated Complaint: Orthopedic MIKE: 4 Review of Systems Integumentary/Breasts Reports as per [facility] Medical History Anxiety and depression Asthma Diabetes mellitus, type 2 Elevated lipids Migraine Obstructive sleep apnea syndrome Polycystic ovaries Surgical History section Colonoscopy - MAC (11/26/16) EGD - MAC (11/26/16) Endoscopic Carpal Tunnel release (01/14/09) Ligation of fallopian tube Open Carpal Tunnel release (10/23/12) Vaginal hysterectomy anterior cruciate ligament reconstruction Social History Smoking/Tobacco Use Status: Former Tobacco Use Exam Const General: cooperative and no acute distress Cardio Rate: regular rate and not tachycardic Rhythm: regular rhythm Pulses: radial pulses present on the right 2+ and dorsalis pedis pulses present on the left 2+ Skin General skin exam: no rashes or lesions noted Lesions: lesion noted (5mm circular white discoloration distal finger tip right 4th digit) Extrem General: no edema Right lower extremity: foot Details: normal capillary refill and normal to inspection Left lower extremity: foot Details: normal capillary refill, tenderness (1-2 toes) and motor-sensory exam Details: light-touch normal; no edema Course Vital Signs Temperature 37 C 08/21/18 14:25 Pulse 52 L 08/21/18 14:25 Respiratory Rate 16 08/21/18 14:25 Blood Pressure 128/46 L 08/21/18 14:25 Pulse Oximetry 98 08/21/18 14:25 Temperature 37 C 08/21/18 14:25 Temperature Source Skin 08/21/18 14:25 Pulse 52 L 08/21/18 14:25 Respiratory Rate 16 08/21/18 14:25 Respiratory Effort Non-Labored 08/21/18 14:25 Blood Pressure 128/46 L 08/21/18 14:25 Blood Pressure Position Sitting 08/21/18 14:25 Pulse Oximetry 98 08/21/18 14:25 Oxygen Delivery Method Room Air 08/21/18 14:25 Oxygen Flow Rate 0 08/21/18 14:25 Pain Level 5 08/21/18 14:30
--- NOTE | 2018-08-21 14:56 | ED.GENADUL_ITS ---
Discharge Plan Disposition Patient Disposition: HOME Discharge Details Chief Complaint: Orthopedic Clinical Impression: Frostbite of finger of right hand, Frostnip Primary Care Provider: Deyanira Marcus ED Provider: Jeanmarie Angel Home Meds and New Rx's Prescriptions: Continued multivitamin [Daily Multi-Vitamin] 1 EACH tablet 1 ea PO DAILY RF: 0 ibuprofen 800 MG tablet 800 mg PO TID PRN PRNQty: 60 RF: 0 acetaminophen [Acetaminophen Extra Strength] 500 MG tablet 500 mg PO Q6H PRN PRNQty: 60 RF: 3 Discharge Instructions Instructions: Frostbite (ED) Additional Instructions: Keep fingers and toes warm. DO NOT ALLOW ANY EXPOSURE TO COLD. Please contact your primary care physician to arrange follow-up. Return to the ER for any worsening or new concerning symptoms. Referrals: Deyanira Marcus [Primary Care Provider] - Medical Decision Making 38-year-old female here with small area of frostbite of her distal right fourth digit and likely frostnip of her left first and second toes. Nonocclusive dressing applied to right fourth digit. I advised patient to follow-up with her primary care physician and to protect digits and protect from additional exposure. Patient was instructed to return for any worsening or new concerning symptoms. HPI General Mode of arrival: ambulatory . Date/Time Provider Initiated Documentation: 08/21/18 14:23 . Limitations to Documentation: no limitations . Information obtained by: patient . HPI Narrative: 38-year-old female presents with chief complaint of cold exposure injury. Patient notes [facility] and noticed that her right fingers and toes were hurting her. She went inside and noticed white skin discoloration to her right fourth digit as well as her left first and second toes. She warmed her extremities up in a warm bath. Her toes have had return of color but are still painful. Her right fourth digit has continued to have a small area of discoloration and is painful. Pain is moderate. Worse on palpation. Related Data Home Medications Medication Instructions Recorded Confirmed multivitamin [Daily Multi-Vitamin] 1 ea PO DAILY 12/19/17 08/21/18 acetaminophen [Acetaminophen Extra 500 mg PO Q6H PRN PRN #60 tablet 03/02/18 08/21/18 Strength] ibuprofen 800 mg PO TID PRN PRN #60 tablet 03/02/18 08/21/18 Previous Rx's Medication Instructions Recorded acetaminophen [Acetaminophen Extra 500 mg PO Q6H PRN PRN #60 tablet 03/02/18 Strength] ibuprofen 800 mg PO TID PRN PRN #60 tablet 03/02/18 Allergies Allergy/AdvReac Type Severity Reaction Status Date / Time amoxicillin Allergy Severe Unverified 08/21/18 14:28 artichoke Allergy Severe ANAPHYLAXIS Unverified 08/21/18 14:28 Penicillins Allergy Intermediate HIVES Unverified 08/21/18 14:28 sodium hypochlorite solution Allergy Intermediate HIVES/SOB Unverified 08/21/18 14:28 [sodium hypochlorite] General Stated Complaint: Orthopedic MIKE: 4 Review of Systems Integumentary/Breasts Reports as per [facility] Medical History Anxiety and depression Asthma Diabetes mellitus, type 2 Elevated lipids Migraine Obstructive sleep apnea syndrome Polycystic ovaries Surgical History section Colonoscopy - MAC (11/26/16) EGD - MAC (11/26/16) Endoscopic Carpal Tunnel release (01/14/09) Ligation of fallopian tube Open Carpal Tunnel release (10/23/12) Vaginal hysterectomy anterior cruciate ligament reconstruction Social History Smoking/Tobacco Use Status: Former Tobacco Use Exam Const General: cooperative and no acute distress Cardio Rate: regular rate and not tachycardic Rhythm: regular rhythm Pulses: radial pulses present on the right 2+ and dorsalis pedis pulses present on the left 2+ Skin General skin exam: no rashes or lesions noted Lesions: lesion noted (5mm circular white discoloration distal finger tip right 4th digit) Extrem General: no edema Right lower extremity: foot Details: normal capillary refill and normal to inspection Left lower extremity: foot Details: normal capillary refill, tenderness (1-2 toes) and motor-sensory exam Details: light-touch normal; no edema Course Vital Signs Temperature 37 C 08/21/18 14:25 Pulse 52 L 08/21/18 14:25 Respiratory Rate 16 08/21/18 14:25 Blood Pressure 128/46 L 08/21/18 14:25 Pulse Oximetry 98 08/21/18 14:25 Temperature 37 C 08/21/18 14:25 Temperature Source Skin 08/21/18 14:25 Pulse 52 L 08/21/18 14:25 Respiratory Rate 16 08/21/18 14:25 Respiratory Effort Non-Labored 08/21/18 14:25 Blood Pressure 128/46 L 08/21/18 14:25 Blood Pressure Position Sitting 08/21/18 14:25 Pulse Oximetry 98 08/21/18 14:25 Oxygen Delivery Method Room Air 08/21/18 14:25 Oxygen Flow Rate 0 08/21/18 14:25 Pain Level 5 08/21/18 14:30
== END 2018-08-21 15:01 | disposition home or self-care (01) ==
LOC: ER 15:07
PROVIDERS: Emergency Provider Student in an Organized Health Care Education/Training Program; PCP Nurse Practitioner Family
DX: T33.531A Superficial frostbite of right finger(s), initial encounter (principal); T33.832A Superficial frostbite of left toe(s), initial encounter; X31.XXXA Exposure to excessive natural cold, initial encounter; Y93.H1 Activity, digging, shoveling and raking; E11.9 Type 2 diabetes mellitus without complications
CPT/HCPCS: 99282; 99283

== ENCOUNTER 2018-10-28 17:25 | Emergency (ER) | payer MEDICAID, SELFPAY ==
[2018-10-28 17:36] VITALS: BP 138/85; PULSE 97; RESP 16; TEMP 36.6; O2SAT 96
--- NOTE | 2018-10-28 17:54 | W.ED.GENAD ---
Discharge Plan Disposition Patient Disposition: HOME Condition: Good Discharge Details Chief Complaint: RespSymp Clinical Impression: Sinusitis Primary Care Provider: Deyanira Marcus ED Provider: Adolfo eKller Home Meds and New Rx's Prescriptions: New fluticasone propionate [fluticasone] 16 GM spray,suspension 1 spray NS BID Qty: 9.9 RF: 0 loratadine 10 mg capsule 10 mg PO DAILY Qty: 20 RF: 0 No Action multivitamin [Daily Multi-Vitamin] 1 EACH tablet 1 ea PO DAILY RF: 0 ibuprofen 800 MG tablet 800 mg PO TID PRN PRNQty: 60 RF: 0 acetaminophen [Acetaminophen Extra Strength] 500 MG tablet 500 mg PO Q6H PRN PRNQty: 60 RF: 3 albuterol sulfate 90 mcg/actuation Hfa Aerosol Inhaler 2 puff INHALATION QID PRNRF: 0 Discharge Instructions Instructions: Sinusitis (ED) Additional Instructions: Please take the loratadine and the steroid nasal spray as directed. Please continue to use your saline nasal spray every 6 hours. Please use the Dionna pot as we discussed. Please follow-up with your primary care provider as soon as possible for reassessment. If you notice any worsening of your symptoms, or any new symptoms such as vomiting, diarrhea, fever, chills, shortness of breath, chest pain, numbness, weakness, or fainting , please return immediately to the emergency department for reevaluation. Please follow up with your primary care provider as soon as possible for reassessment and reevaluation. As always, it was a pleasure participating in your medical care today. Referrals: Deyanira Marcus [Primary Care Provider] - Medical Decision Making This is a pleasant 38-year-old female who presents with 1 week of congestion in her face, runny nose, as well as a mild nonproductive cough. She denies any fever, chest pain, or shortness of breath. Physical exam demonstrates tender frontal maxillary sinuses. No clinical indication for meningitis, or significant abnormal lung sounds. 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 No clinical evidence of pneumonia, or severe bronchitis. Recommend that the patient continues with her inhaler every 4 hours, will give an intranasal steroid spray, [id number] saline nasal spray, loratadine, and [place] pot. Discussed red flags which to return, as well as the importance of close follow-up with her PCP. I have extensively reviewed the treatment plan and discharge instructions with the patient and their family. I have addressed all patient concerns at this time. The patient and family was made aware of what symptoms to monitor for that would warrant a return to the emergency department. Discussed the plan with the patient and family, they demonstrate verbal understanding and agreement with our assessment and plan at this time. HPI General Date/Time Provider Initiated Documentation: 10/28/18 17:53. HPI Narrative: This is a 38-year-old female with a past medical history of asthma who presents today for evaluation of cough and facial congestion. Symptoms have been present for the last week. Cough is nonproductive. She denies any chest pain, shortness of breath, fever, chills, productivity with her cough, headache, or neck pain. The patient has been using showers to help with the symptoms as the moist air seems to help. She has been using her inhaler every 4 hours as directed. She denies any other complaints. Denies PE risk factors such as recent long car rides, immobilization, recent surgery, prior history of DVT or PE, family history of PE or DVT, morbid obesity, exogenous estrogen and smoking, hemoptysis, history of cancer. She denies any other complaints at this time. No other modifying factors. She denies any vision changes, she states that it is not the worst headache of her life. Frontal pressure is just very mild. Patient does admit to a runny nose. No other modifying factors. Related Data Home Medications Medication Instructions Recorded Confirmed multivitamin [Daily Multi-Vitamin] 1 ea PO DAILY 12/19/17 10/28/18 acetaminophen [Acetaminophen Extra 500 mg PO Q6H PRN PRN #60 tablet 03/02/18 10/28/18 Strength] ibuprofen 800 mg PO TID PRN PRN #60 tablet 03/02/18 10/28/18 albuterol sulfate 2 puff INHALATION QID PRN 10/28/18 10/28/18 fluticasone propionate 1 spray NS BID #9.9 gm 10/28/18 [fluticasone] loratadine 10 mg PO DAILY #20 cap 10/28/18 Previous Rx's Medication Instructions Recorded acetaminophen [Acetaminophen Extra 500 mg PO Q6H PRN PRN #60 tablet 03/02/18 Strength] ibuprofen 800 mg PO TID PRN PRN #60 tablet 03/02/18 fluticasone propionate 1 spray NS BID #9.9 gm 10/28/18 [fluticasone] loratadine 10 mg PO DAILY #20 cap 10/28/18 Allergies Allergy/AdvReac Type Severity Reaction Status Date / Time amoxicillin Allergy Severe Unverified 10/28/18 17:38 artichoke Allergy Severe ANAPHYLAXIS Unverified 10/28/18 17:38 Penicillins Allergy Intermediate HIVES Unverified 10/28/18 17:38 sodium hypochlorite solution Allergy Intermediate HIVES/SOB Unverified 10/28/18 17:38 [sodium hypochlorite] General Stated Complaint: RespSymp MIKE: 4 Review of Systems Review of Systems All systems reviewed & are unremarkable except as noted in HPI and below PFSH Social History Smoking/Tobacco Use Status: Former Tobacco Use Drug use: Never Substance use type: does not use Do you feel safe in your relationship?: Yes Exam Narrative Exam Narrative: 1.Const: Well-nourished, Well-developed, appearing stated age 2.Eyes: PERRL, no conjunctival injection, and symmetrical lids. 3.ENT: Atraumatic external nose and ears. Moist MM. Neck: Symmetric, trachea midline, No thyromegaly. Mild tenderness on percussion of her frontal and maxillary sinuses. No evidence of pre-or post septal cellulitis. No significant erythema the posterior oropharynx. Minimal cobblestoning. Patient demonstrates good movement of cervical neck. There is no nuchal rigidity, no nuchal tenderness. Patient is able to flex the neck without any difficulty or significant pain. Negative Kernig's and Brudzinski sign. 4.CVS: +S1/S2, No murmurs or gallops. Peripheral pulses 2+ and equal in all extremities. Brisk capillary refill in all extremities. 5.RESP: Unlabored respiratory effort. Clear to auscultation bilaterally. No wheezes rales or rhonchi 6.GI: Soft, Nontender/Nondistended, No hepatosplenomegaly. No guarding or rebound. 7.MSK: Normocephalic/Atraumatic, Extremities w/o deformity or ttp No cyanosis or clubbing, Normal movement of all extremities 8.Skin: Warm, Dry. No rashes or lesions. 9.Neuro: life manager II-XII grossly intact. Sensation grossly intact, no focal neurologic deficits. 10.Psych: (AAO) x3. Appropriate mood and affect Course Vital Signs Temperature 36.6 C 10/28/18 17:36 Pulse 97 H 10/28/18 17:36 Respiratory Rate 16 10/28/18 17:36 Blood Pressure 138/85 10/28/18 17:36 Pulse Oximetry 96 10/28/18 17:36 Temperature 36.6 C 10/28/18 17:36 Temperature Source Temporal Artery Scan 10/28/18 17:36 Pulse 97 H 10/28/18 17:36 Respiratory Rate 16 10/28/18 17:36 Respiratory Effort 10/28/18 17:36 Blood Pressure 138/85 10/28/18 17:36 Pulse Oximetry 96 10/28/18 17:36 Oxygen Delivery Method Room Air 10/28/18 17:36 Oxygen Flow Rate 0 10/28/18 17:36
--- NOTE | 2018-10-28 18:00 | ED.GENADUL_ITS ---
Discharge Plan Disposition Patient Disposition: HOME Condition: Good Discharge Details Chief Complaint: RespSymp Clinical Impression: Sinusitis Primary Care Provider: Deyanira Marcus ED Provider: Adolfo Keller Home Meds and New Rx's Prescriptions: New fluticasone propionate [fluticasone] 16 GM spray,suspension 1 spray NS BID Qty: 9.9 RF: 0 loratadine 10 mg capsule 10 mg PO DAILY Qty: 20 RF: 0 No Action multivitamin [Daily Multi-Vitamin] 1 EACH tablet 1 ea PO DAILY RF: 0 ibuprofen 800 MG tablet 800 mg PO TID PRN PRNQty: 60 RF: 0 acetaminophen [Acetaminophen Extra Strength] 500 MG tablet 500 mg PO Q6H PRN PRNQty: 60 RF: 3 albuterol sulfate 90 mcg/actuation Hfa Aerosol Inhaler 2 puff INHALATION QID PRNRF: 0 Discharge Instructions Instructions: Sinusitis (ED) Additional Instructions: Please take the loratadine and the steroid nasal spray as directed. Please continue to use your saline nasal spray every 6 hours. Please use the [place] pot as we discussed. Please follow-up with your primary care provider as soon as possible for reassessment. If you notice any worsening of your symptoms, or any new symptoms such as vomiting, diarrhea, fever, chills, shortness of breath, chest pain, numbness, weakness, or fainting , please return immediately to the emergency department for reevaluation. Please follow up with your primary care provider as soon as possible for reassessment and reevaluation. As always, it was a pleasure participating in your medical care today. Referrals: Deyanira Marcus [Primary Care Provider] - Medical Decision Making This is a pleasant 38-year-old female who presents with 1 week of congestion in her face, runny nose, as well as a mild nonproductive cough. She denies any fever, chest pain, or shortness of breath. Physical exam demonstrates tender frontal maxillary sinuses. No clinical indication for meningitis, or significant abnormal lung sounds. 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 No clinical evidence of pneumonia, or severe bronchitis. Recommend that the patient continues with her inhaler e very 4 hours, will give an intranasal steroid spray, [id number] saline nasal spray, loratadine, and [place] pot. Discussed red flags which to return, as well as the importance of close follow-up with her PCP. I have extensively reviewed the treatment plan and discharge instructions with the patient and their family. I have addressed all patient concerns at this time. The patient and family was made aware of what symptoms to monitor for that would warrant a return to the emergency department. Discussed the plan with the patient and family, they demonstrate verbal understanding and agreement with our assessment and plan at this time. HPI General Date/Time Provider Initiated Documentation: 10/28/18 17:53 . HPI Narrative: This is a 38-year-old female with a past medical history of asthma who presents today for evaluation of cough and facial congestion. Symptoms have been present for the last week. Cough is nonproductive. She denies any chest pain, shortness of breath, fever, chills, productivity with her cough, headache, or neck pain. The patient has been using showers to help with the symptoms as the moist air seems to help. She has been using her inhaler every 4 hours as directed. She denies any other complaints. Denies PE risk factors such as recent long car rides, immobilization, recent surgery, prior history of DVT or PE, family history of PE or DVT, morbid obesity, exogenous estrogen and smoking, hemoptysis, history of cancer. She denies any other complaints at this time. No other modifying factors. She denies any vision changes, she states that it is not the worst headache of her life. Frontal pressure is just very mild. Patient does admit to a runny nose. No other modifying factors. Related Data Home Medications Medication Instructions Recorded Confirmed multivitamin [Daily Multi-Vitamin] 1 ea PO DAILY 12/19/17 10/28/18 acetaminophen [Acetaminophen Extra 500 mg PO Q6H PRN PRN #60 tablet 03/02/18 10/28/18 Strength] ibuprofen 800 mg PO TID PRN PRN #60 tablet 03/02/18 10/28/18 albuterol sulfate 2 puff INHALATION QID PRN 10/28/18 10/28/18 fluticasone propionate 1 spray NS BID #9.9 gm 10/28/18 [fluticasone] loratadine 10 mg PO DAILY #20 cap 10/28/18 Previous Rx's Medication Instructions Recorded acetaminophen [Acetaminophen Extra 500 mg PO Q6H PRN PRN #60 tablet 03/02/18 Strength] ibuprofen 800 mg PO TID PRN PRN #60 tablet 03/02/18 fluticasone propionate 1 spray NS BID #9.9 gm 10/28/18 [fluticasone] loratadine 10 mg PO DAILY #20 cap 10/28/18 Allergies Allergy/AdvReac Type Severity Reaction Status Date / Time amoxicillin Allergy Severe Unverified 10/28/18 17:38 artichoke Allergy Severe ANAPHYLAXIS Unverified 10/28/18 17:38 Penicillins Allergy Intermediate HIVES Unverified 10/28/18 17:38 sodium hypochlorite solution Allergy Intermediate HIVES/SOB Unverified 10/28/18 17:38 [sodium hypochlorite] General Stated Complaint: RespSymp MIKE: 4 Review of Systems Review of Systems All systems reviewed & are unremarkable except as noted in HPI and below PFSH Social History Smoking/Tobacco Use Status: Former Tobacco Use Drug use: Never Substance use type: does not use Do you feel safe in your relationship?: Yes Exam Narrative Exam Narrative: 1.Const: Well-nourished, Well-developed, appearing stated age 2.Eyes: PERRL, no conjunctival injection, and symmetrical lids. 3.ENT: Atraumatic external nose and ears. Moist MM. Neck: Symmetric, trachea midline, No thyromegaly. Mild tenderness on percussion of her frontal and maxillary sinuses. No evidence of pre-or post septal cellulitis. No significant erythema the posterior oropharynx. Minimal cobblestoning. Patient demonstrates good movement of cervical neck. There is no nuchal rigidity, no nuchal tenderness. Patient is able to flex the neck without any difficulty or significant pain. Negative Kernig's and Brudzinski sign. 4.CVS: +S1/S2, No murmurs or gallops. Peripheral pulses 2+ and equal in all extremities. Brisk capillary refill in all extremities. 5.RESP: Unlabored respiratory effort. Clear to auscultation bilaterally. No wheezes rales or rhonchi 6.GI: Soft, Nontender/Nondistended, No hepatosplenomegaly. No guarding or rebound. 7.MSK: Normocephalic/Atraumatic, Extremities w/o deformity or ttp No cyanosis or clubbing, Normal movement of all extremities 8.Skin: Warm, Dry. No rashes or lesions. 9.Neuro: grocery specialist II-XII grossly intact. Sensation grossly intact, no focal neurologic deficits. 10.Psych: (AAO) x3. Appropriate mood and affect Course Vital Signs Temperature 36.6 C 10/28/18 17:36 Pulse 97 H 10/28/18 17:36 Respiratory Rate 16 10/28/18 17:36 Blood Pressure 138/85 10/28/18 17:36 Pulse Oximetry 96 10/28/18 17:36 Temperature 36.6 C 10/28/18 17:36 Temperature Source Temporal Artery Scan 10/28/18 17:36 Pulse 97 H 10/28/18 17:36 Respiratory Rate 16 10/28/18 17:36 Respiratory Effort 10/28/18 17:36 Blood Pressure 138/85 10/28/18 17:36 Pulse Oximetry 96 10/28/18 17:36 Oxygen Delivery Method Room Air 10/28/18 17:36 Oxygen Flow Rate 0 10/28/18 17:36
== END 2018-10-28 18:08 | disposition home or self-care (01) ==
PROVIDERS: Emergency Provider Student in an Organized Health Care Education/Training Program; PCP Nurse Practitioner Family
DX: J01.90 Acute sinusitis, unspecified (principal)
CPT/HCPCS: 99282

== ENCOUNTER 2018-12-18 20:10 | Emergency (ER) | payer MEDICAID, SELFPAY ==
[2018-12-18] VITALS (8 sets, daily range): BP systolic 130–134; BP diastolic 65–70; PULSE 64–82; RESP 18; TEMP 36.4–36.9; O2SAT 96–99
[2018-12-18] MEDS: Normal Saline 1,000 ML 1000 ML IV (20:56)
[2018-12-18 21:07] LABS: HCT 38.1 % (36.0-46.0); HGB 12.8 g/dL (12.0-15.5); Mean Corp. HGB Concentration 33.6 g/dL (32.0-36.0); Mean Corpuscular Hemoglobin 27.8 pg (27.0-33.0); Mean Corpuscular Volume 82.8 fL (80-95); Mean Platelet Volume 10.3 fL (8.0-11.0); Platelet Count 266 x1000/uL (130-400); RBC Distribution Width 13.1 % (11.7-14.6); White Blood Cell Count 10.68 k/cumm (4.4-10.8)
[2018-12-18 21:15] LABS: INR 0.9 (0.9-1.1); Prothrombin Time 9.4 sec (9.3-11.0)
[2018-12-18 21:18] LABS: ALT 41 U/L (12-78); AST 18 U/L (15-37); Albumin 3.9 g/dL (3.4-5.0); Alkaline Phosphatase 92 U/L (46-116); Anion Gap 9.3 mmol/L (3-11); BUN 12 mg/dL (7-18); Bilirubin, Total 0.1 mg/dL (0.2-1.0); CO2 28.7 mmol/L (21.0-32.0); CREATININE 0.78 mg/dL (0.55-1.02); Calcium 9.7 mg/dL (8.5-10.1); Chloride 103 mmol/L (98-107); Glucose 122 mg/dL (70-100); Potassium 3.6 mmol/L (3.5-5.1); Sodium 141 mmol/L (136-145); Total Protein 8.9 g/dL (6.4-8.2)
--- NOTE | 2018-12-18 21:26 | DI.CT_ITS ---
SYMPTOM/DIAGNOSIS: DIARRHEA WITH MID INFRAUMBILICAL PAIN ABDOMEN AND PELVIC CT: The study was carried out without contrast enhancement. A fatty liver is demonstrated. No focal abnormality is seen. The gallbladder is normal and there are no stones or ductal dilatation. The pancreas is intact. Heterogeneous spleen is again identified similar to the previous post contrast examination of 03/25/18. 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 The right adrenal gland is normal. There is a 7 mm. probable cyst involving the upper pole of the right kidney which also appears unchanged. The kidneys are otherwise unremarkable. There is no evidence of bowel obstruction or a localized bowel abnormality. The appendix is normal. The bladder is unremarkable. The patient is status post hysterectomy. There is no evidence of free fluid or free air in the intraperitoneal space. No acute bony abnormality is seen. A lower lumbar fusion is noted . The soft tissues are unremarkable. There is no evidence of an aortic aneurysm. There is no evidence of lymphadenopathy. IMPRESSION: No acute process is seen. There is no evidence of an appendicitis or bowel obstruction, an abscess or perforation. There is no evidence of an acute abnormality. Again noted is a heterogeneous spleen without definite interval change when compared with the previous examination. These findings appear stable when compared with a previous examination. A fatty liver is seen. 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
--- NOTE | 2018-12-18 21:52 | W.ED.GENAD ---
Discharge Plan Disposition Patient Disposition: HOME Condition: Good Discharge Details Chief Complaint: Abd Prob Clinical Impression: Diarrhea Primary Care Provider: Deyanira Marcus ED Provider: Adolfo Keller Home Meds and New Rx's Prescriptions: No Action multivitamin [Daily Multi-Vitamin] 1 EACH tablet 1 ea PO DAILY RF: 0 ibuprofen 800 MG tablet 800 mg PO TID PRN PRNQty: 60 RF: 0 acetaminophen [Acetaminophen Extra Strength] 500 MG tablet 500 mg PO Q6H PRN PRNQty: 60 RF: 3 albuterol sulfate 90 mcg/actuation Hfa Aerosol Inhaler 2 puff INHALATION QID PRNRF: 0 loratadine 10 mg capsule 10 mg PO DAILY PRNRF: 0 Discharge Instructions Instructions: Acute Diarrhea (ED) Additional Instructions: Please come back with your stool sample. Please follow-up promptly with your primary care provider. Please make sure to follow-up with your PCP about your atypical appearance of your spleen. Please stick with a diet of high-fiber foods, mashed potatoes, rice, and avoid any greasy foods, spicy foods. Please drink 10 to 12 cups of water per day. If you notice any worsening of your symptoms, or any new symptoms such as vomiting, diarrhea, fever, chills, shortness of breath, chest pain, numbness, weakness, or fainting , please return immediately to the emergency department for reevaluation. Please follow up with your primary care provider as soon as possible for reassessment and reevaluation. As always, it was a pleasure participating in your medical care today. Referrals: Deyanira Marcus [Primary Care Provider] - Medical Decision Making This is a pleasant 38-year-old female who presents for 2 weeks of diarrhea, with minimal infraumbilical abdominal pain, which is slightly worsened over the last 2 days. Stools been brown in color, and slightly darker than normal but not black or tarry. No vomiting. She is eating and drinking well otherwise. Exam demonstrates minimal abdominal tenderness, no signs of an acute surgical abdomen. She has taken [id number] antidiarrheals with no improvement. We will get stool cultures, rehydrate, CT scan to rule out acute process and reassess. 10:59 PM. Patient's laboratory work has returned, white count is normal, no left shift or bandemia. Electrolytes are all within normal limits, renal function stable. Total bilirubin not elevated, lipase normal. Urinalysis is negative for any significant abnormalities. CT scan has returned and demonstrates no evidence of acute process. There are certainly some atypical components though with a heterogenous spleen that is unchanged from 03/25/2018, a myelolipoma, no other significant abnormality. No evidence of colitis or abscess per virtual radiology. The patient has not had any bowel movement here in the ED during her stay. She is feeling better after fluid rehydration. With an unremarkable work-up, I do feel that she can be discharged home however we still do need stool samples. We have given her a lab slip, and as soon as she has a sample recommend that she comes in here for sample evaluation. With no signs of significant colitis, and otherwise benign laboratory work-up with stable and reassuring vital signs as feel that she can be safely discharged home. We discussed the absolute importance of prompt follow-up with her PCP especially in regard to the continued heterogenicity of her spleen and her continued diarrhea. I have extensively reviewed the treatment plan and discharge instructions with the patient. I have addressed all patient concerns at this time. The patient was made aware of what symptoms to monitor for that would warrant a return to the emergency department. Discussed the plan with the patient, they demonstrate verbal understanding and agreement with our assessment and plan at this time. Exam(s) EXAM: CT Abdomen and Pelvis Without Contrast EXAM DATE/TIME: 12/18/2018 9:29 PM CLINICAL HISTORY: 38 years old, female; Signs and symptoms; Patient HX: Diarrhea w/ mid infraumbilical pain TECHNIQUE: Imaging protocol: Axial computed tomography images of the abdomen and pelvis without contrast. Coronal and sagittal reformatted images were created and reviewed. COMPARISON: CT ABD PELVIS WITH CONTRAST 03/25/2018 2:57 PM FINDINGS: Lungs: Visualized lung bases are clear. Heart: Heart size normal. ABDOMEN: Liver: Moderate generalized fatty infiltration of the liver. No focal hepatic lesions or intrahepatic biliary dilatation. Gallbladder and bile ducts: Normal. No calcified stones. No ductal dilation. Pancreas: Mild fatty atrophy of the pancreas without acute abnormality. Spleen: Heterogeneous spleen again noted similar to the previous postcontrast CT on 03/25/2018. The noncontrast CT appearance is nonspecific, however the long-term apparent stability would favor an indolent process. Adrenals: 13 mm left adrenal myelolipoma unchanged. Right adrenal gland is normal. Kidneys and ureters: 7 mm probable cyst in the upper pole of the right kidney unchanged. The kidneys are otherwise unremarkable. Stomach and bowel: The visualized distal esophagus and stomach are normal. The small bowel is normal with no evidence of obstruction. The colon is normal. Appendix: The appendix is normal in caliber and demonstrates no evidence of appendicitis. PELVIS: Bladder: Unremarkable as visualized. Reproductive: Prior hysterectomy. ABDOMEN and PELVIS: Intraperitoneal space: No free fluid or air. Bones/joints: Lower lumbar fusion without acute hardware complication. Graft harvest site in the right posterior superior iliac spine. No acute osseous abnormalities. Soft tissues: Unremarkable. Vasculature: Normal. No abdominal aortic aneurysm. Lymph nodes: No adenopathy. IMPRESSION: 1. No acute process is evident. 2. Normal appendix. No evidence of bowel obstruction, perforation, or abscess. No urinary tract stones or hydronephrosis. 3. Heterogeneous spleen without gross interval change in the numerous splenic lesions identified on the previous postcontrast CT on 03/25/2018, although today's splenic assessment is very limited without contrast. The appearance interval stability would tend to favor an indolent process. 4. Fatty liver. 5. 13 mm left adrenal myelolipoma unchanged. Dictated and Authenticated by: Jimmy Thorpe MD. Ordering:NATHAN Mata MD HPI General Date/Time Provider Initiated Documentation: 12/18/18 20:38. HPI Narrative: This is a 38-year-old female with a past medical history of asthma, depression, diabetes, reflux, kidney stones, seizure disorder who presents today for evaluation of diarrhea. The patient states that for the last 2 weeks she has had diarrhea. She has taken antidiarrheals from [id number] but this is not improved her symptoms. She does have mild infraumbilical abdominal pain which is also been present, all of the symptoms have worsened over the last 2 to 3 days. She denies any dark or tarry stools. She denies any recent foreign travel. She did have antibiotics 2 months ago for sinus infection but no other antibiotics. The patient denies any vomiting or any other complaints. She denies any other associated factors. She denies any other sick contacts. She denies any other complaints at this time. Past surgical history is positive for hysterectomy. She did recently have a laminectomy a few weeks ago. No other complaints at this time. Related Data Home Medications Medication Instructions Recorded Confirmed multivitamin [Daily Multi-Vitamin] 1 ea PO DAILY 12/19/17 12/18/18 acetaminophen [Acetaminophen Extra 500 mg PO Q6H PRN PRN #60 tablet 03/02/18 12/18/18 Strength] ibuprofen 800 mg PO TID PRN PRN #60 tablet 03/02/18 12/18/18 albuterol sulfate 2 puff INHALATION QID PRN 10/28/18 12/18/18 loratadine 10 mg PO DAILY PRN 12/18/18 12/18/18 Previous Rx's Medication Instructions Recorded acetaminophen [Acetaminophen Extra 500 mg PO Q6H PRN PRN #60 tablet 03/02/18 Strength] ibuprofen 800 mg PO TID PRN PRN #60 tablet 03/02/18 Allergies Allergy/AdvReac Type Severity Reaction Status Date / Time amoxicillin Allergy Severe Unverified 12/18/18 20:33 artichoke Allergy Severe ANAPHYLAXIS Unverified 12/18/18 20:33 Penicillins Allergy Intermediate HIVES Unverified 12/18/18 20:33 sodium hypochlorite solution Allergy Intermediate HIVES/SOB Unverified 12/18/18 20:33 [sodium hypochlorite] General Stated Complaint: Abd Prob MIKE: 3 Review of Systems Review of Systems All systems reviewed & are unremarkable except as noted in HPI and below PFSH Social History Smoking/Tobacco Use Status: Former Tobacco Use Drug use: Never Substance use type: does not use Do you feel safe in your relationship?: Yes Exam Narrative Exam Narrative: 1.Const: Well-nourished, Well-developed, appearing stated age 2.Eyes: PERRL, no conjunctival injection, and symmetrical lids. 3.ENT: Atraumatic external nose and ears. Moist MM. Neck: Symmetric, trachea midline, No thyromegaly. 4.CVS: +S1/S2, No murmurs or gallops. Peripheral pulses 2+ and equal in all extremities. Brisk capillary refill in all extremities. 5.RESP: Unlabored respiratory effort. Clear to auscultation bilaterally. No wheezes rales or rhonchi 6.GI: Soft, Nondistended, No hepatosplenomegaly. No guarding or rebound. Mild tenderness in the infraumbilical region. No pelvic tenderness. Negative obturator and psoas sign. No flank or CVA tenderness, negative heel strike test 7.MSK: Normocephalic/Atraumatic, Extremities w/o deformity or ttp No cyanosis or clubbing, Normal movement of all extremities 8.Skin: Warm, Dry. No rashes or lesions. 9.Neuro: household personal assistant II-XII grossly intact. Sensation grossly intact, no focal neurologic deficits. 10.Psych: (AAO) x3. Appropriate mood and affect Course Vital Signs Temperature 36.9 C 12/18/18 20:29 Pulse 82 12/18/18 20:29 Respiratory Rate 18 12/18/18 20:29 Blood Pressure 134/65 12/18/18 20:29 Pulse Oximetry 97 12/18/18 20:29 Temperature 36.9 C 12/18/18 20:29 Temperature Source Oral 12/18/18 20:29 Pulse 82 12/18/18 20:29 Respiratory Rate 18 12/18/18 20:29 Respiratory Effort Non-Labored 12/18/18 20:34 Blood Pressure 134/65 12/18/18 20:29 Blood Pressure Position Sitting 12/18/18 20:29 Pulse Oximetry 97 12/18/18 20:29 Oxygen Delivery Method Room Air 12/18/18 20:29 Oxygen Flow Rate 0 12/18/18 20:29 Pain Level 6 12/18/18 20:29 Lab/Test Results Lab/Test Results: Laboratory Tests Range/Units 12/18/18 12/18/18 12/18/18 20:55 20:55 20:55 WBC (4.4-10.8) k/cumm 10.68 RBC (4.00-5.20) m/cumm 4.60 Hgb (12.0-15.5) g/dL 12.8 Hct (36.0-46.0) % 38.1 MCV (80-95) fL 82.8 MCH (27.0-33.0) pg 27.8 MCHC (32.0-36.0) g/dL 33.6 RDW (11.7-14.6) % 13.1 Plt Count (130-400) x1000/uL 266 MPV (8.0-11.0) fL 10.3 PT (9.3-11.0) sec 9.4 INR (0.9-1.1) 0.9 Sodium (136-145) mmol/L 141 Potassium (3.5-5.1) mmol/L 3.6 Chloride (98-107) mmol/L 103 Carbon Dioxide (21.0-32.0) mmol/L 28.7 Anion Gap (3-11) mmol/L 9.3 BUN (7-18) mg/dL 12 Creatinine (0.55-1.02) mg/dL 0.78 Estimated GFR/1.73 m2 (mL/min/1.73m2) >= 60.00 Glucose (70-100) mg/dL 122 H Calcium (8.5-10.1) mg/dL 9.7 Total Bilirubin (0.2-1.0) mg/dL 0.1 L AST (15-37) U/L 18 ALT (12-78) U/L 41 Alkaline Phosphatase (46-116) U/L 92 Total Protein (6.4-8.2) g/dL 8.9 H Albumin (3.4-5.0) g/dL 3.9
[2018-12-18 21:55] LABS: Bilirubin Negative (Negative); Blood Trace-intact (Negative); Clarity Clear; Glucose Negative (Negative); Ketones Negative (Negative); Leukocyte Esterase Negative (Negative); Nitrite Negative (Negative); Specific Gravity 1.025 (1.005-1.025); Urobilinogen 0.2 EU/dL (Up TO 0.2)
[2018-12-18 21:58] LABS: Lipase 93 U/L (73-393)
[2018-12-18 22:18] LABS: Bacteria Few HPF (Negative); C & S Indicated? No; Casts Negative LPF (Negative); Crystals Negative HPF (Negative); Epithelial Cells Few HPF (Negative); Mucus Moderate (Negative); WBC 0-2 HPF (0-5)
--- NOTE | 2018-12-18 22:21 | DI.VRAD_ITS ---
EXAM: CT Abdomen and Pelvis Without Contrast EXAM DATE/TIME: 12/18/2018 9:29 PM CLINICAL HISTORY: 38 years old, female; Signs and symptoms; Patient HX: Diarrhea w/ mid infraumbilical pain TECHNIQUE: Imaging protocol: Axial computed tomography images of the abdomen and pelvis without contrast. Coronal and sagittal reformatted images were created and reviewed. COMPARISON: CT ABD PELVIS WITH CONTRAST 03/25/2018 2:57 PM FINDINGS: Lungs: Visualized lung bases are clear. Heart: Heart size normal. ABDOMEN: Liver: Moderate generalized fatty infiltration of the liver. No focal hepatic lesions or intrahepatic biliary dilatation. Gallbladder and bile ducts: Normal. No calcified stones. No ductal dilation. Pancreas: Mild fatty atrophy of the pancreas without acute abnormality. Spleen: Heterogeneous spleen again noted similar to the previous postcontrast CT on 03/25/2018. The noncontrast CT appearance is nonspecific, however the long-term apparent stability would favor an indolent process. Adrenals: 13 mm left adrenal myelolipoma unchanged. Right adrenal gland is normal. Kidneys and ureters: 7 mm probable cyst in the upper pole of the right kidney unchanged. The kidneys are otherwise unremarkable. Stomach and bowel: The visualized distal esophagus and stomach are normal. The small bowel is normal with no evidence of obstruction. The colon is normal. Appendix: The appendix is normal in caliber and demonstrates no evidence of appendicitis. PELVIS: Bladder: Unremarkable as visualized. Reproductive: Prior hysterectomy. ABDOMEN and PELVIS: Intraperitoneal space: No free fluid or air. Bones/joints: Lower lumbar fusion without acute hardware complication. Graft harvest site in the right posterior superior iliac spine. No acute osseous abnormalities. Soft tissues: Unremarkable. Vasculature: Normal. No abdominal aortic aneurysm. Lymph nodes: No adenopathy. IMPRESSION: 1. No acute process is evident. 2. Normal appendix. No evidence of bowel obstruction, perforation, or abscess. No urinary tract stones or hydronephrosis. 3. Heterogeneous spleen without gross interval change in the numerous splenic lesions identified on the previous postcontrast CT on 03/25/2018, although today's splenic assessment is very limited without contrast. The appearance interval stability would tend to favor an indolent process. 4. Fatty liver. 5. 13 mm left adrenal myelolipoma unchanged. Dictated and Authenticated by: Jimmy Thorpe MD. Ordering:NATHAN Mata MD
== END 2018-12-18 23:10 | disposition home or self-care (01) ==
PROVIDERS: Emergency Provider Student in an Organized Health Care Education/Training Program; PCP Nurse Practitioner Family
DX: R19.7 Diarrhea, unspecified (principal); R10.9 Unspecified abdominal pain
CPT/HCPCS: 36415; 80053; 83690; 85027; 86850; 86900; 86901; 87505; 96360; 99285; 74176; 81003; 81015; 85610; 99284

== ENCOUNTER 2018-12-19 14:23 | Outpatient (REF) | payer MEDICAID, SELFPAY ==
[2018-12-20 12:20] LABS: Campylobacter PCR SEE COMMENTS; Salmonella PCR SEE COMMENTS; Shiga Toxin PCR SEE COMMENTS; Shigella/Enteroinvasive Ecoli SEE COMMENTS
== END 2018-12-19 14:43 ==
LOC: LBN 14:23
PROVIDERS: PCP Nurse Practitioner Family; Visit Provider Student in an Organized Health Care Education/Training Program
DX: R19.7 Diarrhea, unspecified (principal)
CPT/HCPCS: 87505; 87177; 87324

== ENCOUNTER 2018-12-29 14:28 | Emergency (ER) | payer MEDICAID, SELFPAY ==
[2018-12-29 14:35] VITALS: BP 149/89; PULSE 62; RESP 20; TEMP 36.8; O2SAT 98
--- NOTE | 2018-12-29 15:50 | ED.GENADUL_ITS ---
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 Clinical Impression: Bacterial skin infection Primary Care Provider: Deyanira Marcus ED Provider: Rae Diaz Home Meds and New Rx's Prescriptions: New doxycycline hyclate 100 mg tablet 100 mg PO BID 7 Days Qty: 14 RF: 0 Continued multivitamin [Daily Multi-Vitamin] 1 EACH tablet 1 ea PO DAILY RF: 0 ibuprofen 800 MG tablet 800 mg PO TID PRN PRNQty: 60 RF: 0 acetaminophen [Acetaminophen Extra Strength] 500 MG tablet 500 mg PO Q6H PRN PRNQty: 60 RF: 3 albuterol sulfate 90 mcg/actuation Hfa Aerosol Inhaler 2 puff INHALATION QID PRNRF: 0 loratadine 10 mg capsule 10 mg PO DAILY PRNRF: 0 Discharge Instructions Instructions: Cellulitis (ED) Additional Instructions: The small painful lump noted in the genital region today may be the start of a minor superficial skin infection. At this point in time, this can be best treated with warm compresses and warm soaks in tub. If your symptoms do not improve or worsen, you can start the oral antibiotics. If you develop any significant worsening of symptoms such as fever, significant increase in pain, redness or swelling, return immediately to the emergency department. Follow up with your primary care doctor in 1 week for re-evaluation. Discharge Data Discharge Physician: Rae Diaz Medical Decision Making 38 old female presents with tender lump within the labia minora noted last ni ght. There is a small 4 x 4 millimeter mildly indurated lump noted within the left labia minora. Does not appear consistent with abscess or Bartholin's gland cyst or abscess. Does not appear consistent with folliculitis or ingrown hair. She is sexually active but denies any STD or UTI symptoms. She is afebrile and appears nontoxic. Vitals within normal limits. Abdomen soft and nontender. No vaginal discharge or other genital lesions noted. Discussed with patient that this may be the start of a mild superficial infection. She is instructed to apply warm compresses, soak in warm bath. At this point time I do not see an indication for antibiotics, but patient is concerned going into the weekend if symptoms worsen. We will send home with a prescription for antibiotics to start if her symptoms worsen. She also is instructed to return here immediately if she develops significant worsening of symptoms or fever. She is instructed to follow-up with primary care doctor next week for reevaluation. HPI General Mode of arrival: ambulatory . Date/Time Provider Initiated Documentation: 12/29/18 14:39 . Limitations to Documentation: no limitations . Information obtained by: patient . HPI Narrative: Patient is a 38-year-old female presents with tender lump within normal labia noted since last night. Patient states she was urinating when she wiped and felt a tender lump. She states it has not grown in size since then. She states she has soaked in a bath and applied warm compresses without any relief. She states she is sexually active with one partner and does not use protection. She denies any known exposure to STDs, vaginal discharge, fever, nausea, vomiting, abdominal pain, dysuria, hematuria, urinary hesitancy or urgency. Related Data Home Medications Medication Instructions Recorded Confirmed multivitamin [Daily Multi-Vitamin] 1 ea PO DAILY 12/19/17 12/29/18 acetaminophen [Acetaminophen Extra 500 mg PO Q6H PRN PRN #60 tablet 03/02/18 12/29/18 Strength] ibuprofen 800 mg PO TID PRN PRN #60 tablet 03/02/18 12/29/18 albuterol sulfate 2 puff INHALATION QID PRN 10/28/18 12/29/18 loratadine 10 mg PO DAILY PRN 12/18/18 12/29/18 doxycycline hyclate 100 mg PO BID 7 Days #14 tab 12/29/18 Previous Rx's Medication Instructions Recorded acetaminophen [Acetaminophen Extra 500 mg PO Q6H PRN PRN #60 tablet 03/02/18 Strength] ibuprofen 800 mg PO TID PRN PRN #60 tablet 03/02/18 doxycycline hyclate 100 mg PO BID 7 Days #14 tab 12/29/18 Allergies Allergy/AdvReac Type Severity Reaction Status Date / Time amoxicillin Allergy Severe Unverified 12/29/18 14:38 artichoke Allergy Severe ANAPHYLAXIS Unverified 12/29/18 14:38 Penicillins Allergy Intermediate HIVES Unverified 12/29/18 14:38 sodium hypochlorite solution Allergy Intermediate HIVES/SOB Unverified 12/29/18 14:38 [sodium hypochlorite] General 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 Review of Systems Review of Systems All systems reviewed & are unremarkable except as noted in HPI and below Constitutional Reports as per HPI, Denies chills and Denies fever(s) Eyes Denies blurry vision ENT Denies dizziness, Denies sore throat and Denies throat swelling Cardiovascular Denies chest pain and Denies dyspnea Respiratory Denies cough and Denies dyspnea Gastrointestinal Denies abdominal pain, Denies diarrhea and Denies vomiting Genitourinary Denies hematuria and Denies dysuria Musculoskeletal Denies back pain and Denies numbness Integumentary/Breasts Denies lesions and Denies rash Neurologic Denies dizziness, Denies focal weakness and Denies numbness Allergic/Immunologic Denies throat swelling PFS Medical History Anxiety and depression Asthma Diabetes mellitus, type 2 Elevated lipids Migraine Obstructive sleep apnea syndrome Polycystic ovaries Surgical History section Colonoscopy - MAC (11/26/16) EGD - MAC (11/26/16) Endoscopic Carpal Tunnel release (01/14/09) Ligation of fallopian tube Open Carpal Tunnel release (10/23/12) Vaginal hysterectomy anterior cruciate ligament reconstruction Social History Smoking/Tobacco Use Status: Former Tobacco Use Alcohol Intake: never Drug use: Never Substance use type: does not use Do you feel safe at home: Yes Do you feel safe in your relationship?: Yes Exam Const General: cooperative, healthy appearing and no acute distress HENMT Head: normal to inspection Face and sinus: normal facial exam Eyes General: appearance normal, both eyes and all related structures EOM: EOM intact bilaterally Neck Neck: normal visual inspection and No submandibular swelling Lymphatic: no lymphadenopathy noted Chest Chest: normal inspection of the chest and no tenderness Resp Effort & Inspection: normal respiratory effort and able to speak in complete se ntences Auscultation: clear to auscultation bilaterally Cardio Rate: regular rate Rhythm: regular rhythm GI Inspection: normal to inspection Palpation: soft, not firm, not rigid and nontender Auscultation: normal bowel sounds Other: Small 4 x 4 millimeter tender indurated lump within left labium minora. No fluctuance, drainage or bleeding noted. No additional genital lesions. No vaginal discharge or bleeding noted. Does not appear consistent with Bartholin's gland cyst or abscess. Female genitals images: 1. 4 x 4 mm tender lump within left labia minora. Skin General skin exam: no rashes or lesions noted Neuro General: alert, awake and oriented x3 Cognition: normal cognition Speech: speech normal Motor: muscle tone normal throughout Sensory Exam: no sensory deficits noted Extrem General: normal to inspection, full ROM and no edema Psych Appearance: grossly normal Mental Status: mental status grossly normal Speech and Movement: speech and movement normal Affect: normal affect Course Vital Signs Temperature 98.2 F 12/29/18 14:35 Pulse 62 12/29/18 14:35 Respiratory Rate 20 12/29/18 14:35 Blood Pressure 149/89 H 12/29/18 14:35 Pulse Oximetry 98 12/29/18 14:35 Temperature 98.2 F 12/29/18 14:35 Temperature Source Temporal Artery Scan 12/29/18 14:35 Pulse 62 12/29/18 14:35 Respiratory Rate 20 12/29/18 14:35 Respiratory Effort Non-Labored 12/29/18 14:35 Blood Pressure 149/89 H 12/29/18 14:35 Blood Pressure Position Sitting 12/29/18 14:35 Pulse Oximetry 98 12/29/18 14:35 Oxygen Delivery Method Room Air 12/29/18 14:35 Oxygen Flow Rate 0 12/29/18 14:35 Pain Level 8 12/29/18 14:38
== END 2018-12-29 16:58 | disposition home or self-care (01) ==
PROVIDERS: Emergency Provider Physician Assistant; PCP Nurse Practitioner Family
DX: L08.89 Other specified local infections of the skin and subcutaneous tissue (principal)
CPT/HCPCS: 99283

== ENCOUNTER 2019-02-27 20:27 | Emergency (ER) | payer MEDICAID, SELFPAY ==
[2019-02-27 20:30] VITALS: BP 154/54; PULSE 85; RESP 16; TEMP 36.5; O2SAT 98
--- NOTE | 2019-02-27 20:30 | W.ED.GENAD ---
Discharge Plan Disposition Patient Disposition: HOME Condition: Good Discharge Details Chief Complaint: Orthopedic Clinical Impression: Sprain of right shoulder Primary Care Provider: Deyanira Marcus ED Provider: Adolfo Keller Home Meds and New Rx's Prescriptions: New acetaminophen [Mapap Extra Strength] 500 MG tablet 1,000 mg PO Q6H 5 Days Qty: 60 RF: 0 lidocaine [Lidoderm] 1 PATCH patch 1 patch Topical Q24H Qty: 4 RF: 0 ibuprofen [Motrin IB] 200 MG tablet 600 mg PO Q6H 5 Days Qty: 60 RF: 0 Continued multivitamin [Daily Multi-Vitamin] 1 EACH tablet 1 ea PO DAILY RF: 0 albuterol sulfate 90 mcg/actuation Hfa Aerosol Inhaler 2 puff INHALATION QID PRNRF: 0 Discontinued ibuprofen 800 MG tablet 800 mg PO TID PRN PRNQty: 60 RF: 0 acetaminophen [Acetaminophen Extra Strength] 500 MG tablet 500 mg PO Q6H PRN PRNQty: 60 RF: 3 No Action loratadine 10 mg capsule 10 mg PO DAILY PRNRF: 0 Discharge Instructions Instructions: Shoulder Sprain (ED) Additional Instructions: You have sprained your shoulder. At this time there is no evidence of fracture on the x-ray. Please use the Lidoderm patch, Tylenol and Motrin as directed. Please use the sling only as needed for comfort, make sure to move your arm in all directions 5-10 times per day to prevent any frozen shoulder syndrome. If your symptoms do not improve over the next 2 to 4 weeks with the conservative management you may require follow-up with an [facility]. if you notice any worsening of your symptoms, or any new symptoms such as vomiting, diarrhea, fever, chills, shortness of breath, chest pain, numbness, weakness, or fainting , please return immediately to the emergency department for reevaluation. Please follow up with your primary care provider as soon as possible for reassessment and reevaluation. As always, it was a pleasure participating in your medical care today. Stand Alone Forms: Work Release Referrals: Deyanira Marcus [Primary Care Provider] - Medical Decision Making This is a pleasant 38-year-old female who presents today for evaluation after a fall. She was in the shower and had a mechanical slip. She landed on her right shoulder and right elbow. She has notable pain in these areas, particularly with external rotation of the right shoulder and on palpation of the medial aspect of the elbow. Strength and sensation is otherwise normal. No evidence of significant deformity, no evidence of dislocation. Signs and symptoms appear consistent with mild muscle and ligamentous strain, particularly with the external rotation of the shoulder as well as mild contusion. We will get an x-ray to evaluate for any acute fracture which I feel unlikely. Will recommend Tylenol, Motrin, Lidoderm patch and sling. 9:26 PM X-rays are negative for any evidence of acute fracture. Patient is feeling well. I suspect ligamentous injury and contusion. Recommend continued NSAIDs, Lidoderm patch and sling. The patient does not have improvement with conservative therapy over the next 2 weeks she will need follow-up with orthopedics. We discussed red flags which to return. I have extensively reviewed the treatment plan and discharge instructions with the patient and their family. I have addressed all patient concerns at this time. The patient and family was made aware of what symptoms to monitor for that would warrant a return to the emergency department. Discussed the plan with the patient and family, they demonstrate verbal understanding and agreement with our assessment and plan at this time. FINDINGS: Bones/joints: No acute fracture or subluxation. Mild degenerative changes in the distal clavicle. Acromioclavicular joint appears intact. Soft tissues: Normal. IMPRESSION: No acute bony pathology. Thank you for allowing us to participate in the care of your patient. Dictated and Authenticated by: Juanita Harper MD 02/27/2019 9:16 PM Eastern Time ([place] & [place]) FINDINGS: Bones/joints: No acute fracture or subluxation. Soft tissues: Normal. IMPRESSION: No acute bony pathology. Thank you for allowing us to participate in the care of your patient. Dictated and Authenticated by: Juanita Harper MD 02/27/2019 9:17 PM Eastern Time ([place] & [place]) FINDINGS: Bones/joints: 4 mm cystic structure in the distal clavicle with surrounding sclerosis, most likely a small degenerative cystic structure. The acromioclavicular joint appears intact. No acute fracture or subluxation. Soft tissues: Normal. IMPRESSION: No acute bony pathology. Thank you for allowing us to participate in the care of your patient. Dictated and Authenticated by: Juanita Harper MD 02/27/2019 9:17 PM Eastern Time ([place] & [place]) HPI General Date/Time Provider Initiated Documentation: 02/27/19 20:30. HPI Narrative: This is a 38-year-old female with a past medical history of diabetes, obstructive sleep apnea, obesity, polycystic ovaries, who presents today for evaluation of right shoulder pain. Patient states that roughly 20 minutes prior to arrival she was in the shower when she had a mechanical slip and fall and landed on her right shoulder and elbow. She is right-hand dominant. She has pain in the medial aspect of her elbow, and in the posterior and anterior aspect of her shoulder. Worse with movement. Pain radiates from the right shoulder to the elbow. No radiation to the forearm or hand. No chest pain or pleuritic pain. She denies any numbness tingling or weakness. She denies any trauma to her head or neck. She denies any acute head neck or back pain. She has no other complaints at this time. She has not taken any medications for pain relief. No other modifying factors. She denies any recent surgeries or IV or illicit drug use. No pertinent family history Related Data Home Medications Medication Instructions Recorded Confirmed multivitamin [Daily Multi-Vitamin] 1 ea PO DAILY 12/19/17 02/27/19 albuterol sulfate 2 puff INHALATION QID PRN 10/28/18 02/27/19 loratadine 10 mg PO DAILY PRN 12/18/18 02/27/19 acetaminophen [Mapap Extra 1,000 mg PO Q6H 5 Days #60 tab 02/27/19 Strength] ibuprofen [Motrin Ib] 600 mg PO Q6H 5 Days #60 tab 02/27/19 lidocaine [Lidoderm] 1 patch TOPICAL Q24H #4 patch 02/27/19 Previous Rx's Medication Instructions Recorded acetaminophen [Mapap Extra 1,000 mg PO Q6H 5 Days #60 tab 02/27/19 Strength] ibuprofen [Motrin Ib] 600 mg PO Q6H 5 Days #60 tab 02/27/19 lidocaine [Lidoderm] 1 patch TOPICAL Q24H #4 patch 02/27/19 Allergies Allergy/AdvReac Type Severity Reaction Status Date / Time amoxicillin Allergy Severe Unverified 02/27/19 20:36 artichoke Allergy Severe ANAPHYLAXIS Unverified 02/27/19 20:36 Penicillins Allergy Intermediate HIVES Unverified 02/27/19 20:36 sodium hypochlorite solution Allergy Intermediate HIVES/SOB Unverified 02/27/19 20:36 [sodium hypochlorite] General MIKE: 4 Review of Systems Review of Systems All systems reviewed & are unremarkable except as noted in HPI and below [facility] Social History Smoking/Tobacco Use Status: Former Tobacco Use Alcohol Intake: never Drug use: Never Substance use type: does not use Do you feel safe at home: Yes Do you feel safe in your relationship?: Yes Exam Narrative Exam Narrative: 1.Const: Well-nourished, Well-developed, appearing stated age 2.Eyes: PERRL, no conjunctival injection, and symmetrical lids. 3.ENT: Atraumatic external nose and ears. Moist MM. Neck: Symmetric, trachea midline, No thyromegaly. 4.CVS: +S1/S2, No murmurs or gallops. Peripheral pulses 2+ and equal in all extremities. Brisk capillary refill in all extremities. 5.RESP: Unlabored respiratory effort. Clear to auscultation bilaterally. No wheezes rales or rhonchi 6.GI: Soft, Nontender/Nondistended, No hepatosplenomegaly. No guarding or rebound. 7.MSK: Normocephalic/Atraumatic, Extremities w/o deformity. No cyanosis or clubbing, no midline cervical thoracic or lumbar spine tenderness. No evidence of trauma to the head or neck. Minimal tenderness on the right clavicle. Right shoulder: Pain is reproducible over the anterior shoulder as well as the posterior shoulder over the scapular spine. Range of motion is normal. She does have pain with external rotation of the shoulder but no significant pain with internal rotation, abduction or abduction. No significant pain with empty can test, or thumbs up position. Normal tailings man strength, normal movement sensation in the hand and forearm Right elbow: Tenderness over the medial epicondyle. No significant lateral epicondyle tenderness. No pain with pronation and supination. No significant pain with flexion or extension. Normal strength. 5 out of 5 strength in all extremities. 8.Skin: Warm, Dry. No rashes or lesions. 9.Neuro: sketch maker II-XII grossly intact. Sensation grossly intact, no focal neurologic deficits. 10.Psych: (AAO) x3. Appropriate mood and affect
[2019-02-27] MEDS: Lidocaine 5% Patch 1 PATCH TP (21:03)
[2019-02-27] MEDS: Acetaminophen 500 MG TAB 1000 MG PO (21:03)
[2019-02-27] MEDS: Ibuprofen 800 MG TAB PO (21:03)
--- NOTE | 2019-02-27 21:05 | DI.RAD_ITS ---
SYMPTOMS/DIAGNOSIS: RIGHT SHOULDER AND CLAVICLE PAIN, RIGHT ELBOW PAIN, MEDIAL ASPECT, S/P FALL RIGHT CLAVICLE: A small cystic region in the distal clavicle has surrounding sclerosis and is most likely degenerative in nature. The AC joint is intact. SUMMARY: There is no evidence of a fracture. RIGHT SHOULDER: There is no evidence of a fracture or dislocation. The AC joint is intact. SUMMARY: No fracture, or dislocation or evidence of an acute abnormality is identified. RIGHT ELBOW: There is no evidence of a fracture or dislocation. No bony or joint abnormality is identified.
--- NOTE | 2019-02-27 21:17 | DI.VRAD_ITS ---
EXAM: XR Right Shoulder EXAM DATE/TIME: 02/27/2019 20:38 CLINICAL HISTORY: 38 years old, female; Injury or trauma; Fall; Initial encounter; Blunt trauma (contusions or hematomas; Shoulder and elbow; Right; Injury date: 02/27/19; Injury details: Fell in shower, shoulder, elbow, clavicle pain TECHNIQUE: Imaging protocol: XR Right shoulder. Views: 2 or more views. COMPARISON: No relevant prior studies available. FINDINGS: Bones/joints: No acute fracture or subluxation. Mild degenerative changes in the distal clavicle. Acromioclavicular joint appears intact. Soft tissues: Normal. IMPRESSION: No acute bony pathology. Dictated and Authenticated by: Juanita Harper MD. Ordering:NATHAN Mata MD
--- NOTE | 2019-02-27 21:17 | DI.VRAD_ITS ---
EXAM: XR Right Elbow EXAM DATE/TIME: 02/27/2019 20:39 CLINICAL HISTORY: 38 years old, female; Injury or trauma; Initial encounter; Blunt trauma (contusions or hematomas; Shoulder and elbow; Right; Injury date: 02/27/19; Injury details: Fell in shower, shoulder, elbow, clavicle pain; Patient HX: Fall, medial elbow pain TECHNIQUE: Imaging protocol: XR Right elbow. Views: 3 or more views. COMPARISON: No relevant prior studies available. FINDINGS: Bones/joints: No acute fracture or subluxation. Soft tissues: Normal. IMPRESSION: No acute bony pathology. Dictated and Authenticated by: Juanita Harper MD. Ordering:NATHAN Mata MD
--- NOTE | 2019-02-27 21:18 | DI.VRAD_ITS ---
EXAM: XR Right Clavicle, Complete EXAM DATE/TIME: 02/27/2019 20:38 CLINICAL HISTORY: 38 years old, female; Injury or trauma; Fall; Initial encounter; Blunt trauma (contusions or hematomas; Shoulder and elbow; Right; Injury date: 02/27/19; Patient HX: Fell in shower, shoulder, elbow, clavicle pain TECHNIQUE: Imaging protocol: XR Right clavicle complete. Any number of views. COMPARISON: No relevant prior studies available. FINDINGS: Bones/joints: 4 mm cystic structure in the distal clavicle with surrounding sclerosis, most likely a small degenerative cystic structure. The acromioclavicular joint appears intact. No acute fracture or subluxation. Soft tissues: Normal. IMPRESSION: No acute bony pathology. Dictated and Authenticated by: Juanita Harper MD. Ordering:NATHAN Mata MD
== END 2019-02-27 21:32 | disposition home or self-care (01) ==
LOC: ER 21:01
PROVIDERS: Emergency Provider Student in an Organized Health Care Education/Training Program; PCP Nurse Practitioner Family
DX: S43.401A Unspecified sprain of right shoulder joint, initial encounter (principal); M25.521 Pain in right elbow; W18.2XXA Fall in (into) shower or empty bathtub, initial encounter
CPT/HCPCS: 99284; 73000; 73030; 73080; L3650

== ENCOUNTER 2019-03-09 14:59 | Emergency (ER) | payer MEDICAID, SELFPAY ==
[2019-03-09 15:01] VITALS: BP 123/60; PULSE 84; RESP 16; TEMP 36.6; O2SAT 97
--- NOTE | 2019-03-09 15:48 | ED.GENADUL_ITS ---
Discharge Plan Disposition Patient Disposition: HOME Condition: Improving Discharge Details Chief Complaint: Nausea/Vomit/Diar Clinical Impression: Nausea and vomiting Primary Care Provider: Deyanira Marcus ED Provider: Padilla Combs Home Meds and New Rx's Prescriptions: New promethazine 25 mg tablet 25 mg PO Q6H PRN (Reason: nausea and vomiting) Qty: 10 RF: 0 Continued multivitamin [Daily Multi-Vitamin] 1 EACH tablet 1 ea PO DAILY RF: 0 albuterol sulfate 90 mcg/actuation Hfa Aerosol Inhaler 2 puff INHALATION QID PRNRF: 0 loratadine 10 mg capsule 10 mg PO DAILY PRNRF: 0 Discharge Instructions Instructions: Acute Nausea and Vomiting (ED) Additional Instructions: Continue to advance the diet as tolerated and stay well-hydrated. Use the nausea and vomiting medication as needed and return to the emergency department for any new or significant worsening of symptoms. If symptoms continue to persist but do not worsen feel free to follow-up with your primary care provider for reassessment Referrals: Deyanira Marcus [Primary Care Provider] - Discharge Data Discharge Date/Time-TO BE ENTERED AT DEPARTURE: 03/09/19 17:47 Medical Decision Making <MELECIO Kunz - Last Filed: 03/11/19 23:30> Patient is a 38 year old female presenting iwth c/c of N/V x 4 hours. Currently endorsing nausea. Exam is benign. Patient is obese. She has normal BS. VS WNL. Appears nontoxic. No recent travel, no recent abx, no known sick contacts. Patient has hx of DM, has not noted her BS to be abnrmal. At the end of my shift, care transitioned to Ricky Combs NP with labs and reassessment pending. Patient ordered labs, hydration, IV Zofran. <Padilla Combs NP - Last Filed: 03/09/19 23:12> Patient signed out to me by MELECIO Kunz pending lab results and reassessment. Patient received 1 L IV fluids and Zofran. Reassessed patient after review of labs which are non-worrisome and show a slight reduction of platelets, mild elevation of AST and unremarkable UA. Patient does state improvement of symptoms, has been tolerating p.o. intake of water. Abdomen was reassessed and shows no guarding, no peritoneal findings, no focal tenderness. Given this I do not feel that patient requires CT imaging at this time. Patient encouraged to continue to advance diet as tolerated and patient was prescribed Phenergan to use as needed for further nausea given that she states that she still feels nauseous in spite of Zofran. Return precautions discussed. After discussion of diagnosis and plan of care patient has no further needs, questions, or concerns and states clear understanding to return to the emergency department for any worsening symptoms. HPI <MELECIO Kunz - Last Filed: 03/11/19 23:30> General Mode of arrival: ambulatory . Date/Time Provider Initiated Documentation: 03/09/19 15:10 . Limitations to Documentation: no limitations . Information obtained by: patient, family and RN notes reviewed . HPI Narrative: Patient is a 38 year old female presenting today, accompanied by signficant other, with c/c of nausea and vomiting x 4 hours. STates that this AM she was feeling nauseated but had typical appetite eating 2 donuts for breakfast. She reports that she felt a migraine coming on with RAMIREZ and sensitivity to smells. Was able to break this with medications. However, nausea/vomiting has persisted. Reprots 5 episodes of emesis. Reports she has been trying to stay hydrated but feels that she has been bringing up much of the fluids she drinks. Denies fever/schills, no recent travel, denies change in bowel or bladder habits. No recent medications changes. Surgical history pertinent for partial hysterectomy. PMH DM, migraines, hyperlipidemia, anxiety/depression. Related Data Home Medications Medication Instructions Recorded Confirmed multivitamin [Daily Multi-Vitamin] 1 ea PO DAILY 12/19/17 03/09/19 albuterol sulfate 2 puff INHALATION QID PRN 10/28/18 03/09/19 loratadine 10 mg PO DAILY PRN 12/18/18 03/09/19 promethazine 25 mg PO Q6H PRN #10 tab 03/09/19 Previous Rx's Medication Instructions Recorded promethazine 25 mg PO Q6H PRN #10 tab 03/09/19 Allergies Allergy/AdvReac Type Severity Reaction Status Date / Time amoxicillin Allergy Severe Unverified 03/09/19 15:05 artichoke Allergy Severe ANAPHYLAXIS Unverified 03/09/19 15:05 Penicillins Allergy Intermediate HIVES Unverified 03/09/19 15:05 sodium hypochlorite solution Allergy Intermediate HIVES/SOB Unverified 03/09/19 15:05 [sodium hypochlorite] General Stated Complaint: Nausea/Vomit/Diar MIKE: 4 Review of Systems <MELECIO Kunz - Last Filed: 03/11/19 23:30> Constitutional Reports as per HPI, Denies chills, Denies fatigue, Denies fever(s) and Denies headache(s) ENT Denies headache(s) Cardiovascular Reports as per HPI, Denies chest pain and Denies dyspnea Respiratory Reports as per HPI, Denies cough and Denies dyspnea Gastrointestinal Reports as per HPI Musculoskeletal Reports as per HPI and Denies back pain Integumentary/Breasts Reports as per HPI and Denies rash Neurologic Reports as per HPI and Denies headache(s) Endocrine Denies fatigue PFSH <MELECIO Kunz - Last Filed: 03/11/19 23:30> Medical History Anxiety and depression Asthma Diabetes mellitus, type 2 Elevated lipids Migraine Obstructive sleep apnea syndrome Polycystic ovaries Surgical History anterior cruciate ligament reconstruction section Colonoscopy - MAC (11/26/16) EGD - MAC (11/26/16) Endoscopic Carpal Tunnel release (01/14/09) Ligation of fallopian tube Open Carpal Tunnel release (10/23/12) Vaginal hysterectomy Social History Smoking/Tobacco Use Status: Former Tobacco Use Alcohol Intake: never Drug use: Never Substance use type: does not use Do you feel safe at home: Yes Do you feel safe in your relationship?: Yes Exam <MELECIO Kunz - Last Filed: 03/11/19 23:30> Const General: cooperative, healthy appearing, comfortable, no acute distress and well developed Nutritional Appearance: well nourished and obese Orientation: alert and awake HENMT Head: normal to inspection Mouth: moist mucous membranes Resp Effort & Inspection: normal respiratory effort, able to speak in complete sentences and no respiratory distress Auscultation: clear to auscultation bilaterally, no rales, no rhonchi and no wheezes Cardio Rate: regular rate Rhythm: regular rhythm Heart Sounds: S1 normal and S2 normal GI Inspection: large pannus and obesity Palpation: soft, no hepatosplenomegaly, not firm, no guarding, no hernias and nontender Percussion: normal to percussion Auscultation: normal bowel sounds Back/Spine/Pelvis Back: no CVA tenderness Skin General skin exam: no rashes or lesions noted Trauma: no lacerations or abrasions Neuro General: alert and awake Cognition: normal cognition Speech: speech normal Gait: normal gait Psych Appearance: grossly normal and well kempt Mental Status: mental status grossly normal Speech and Movement: speech and movement normal Course <MELECIO Kunz - Last Filed: 03/11/19 23:30> Vital Signs Temperature 36.6 C 03/09/19 15:01 Pulse 84 03/09/19 15:01 Respiratory Rate 16 03/09/19 15:01 Blood Pressure 123/60 03/09/19 15:01 Pulse Oximetry 97 03/09/19 15:01 Temperature 36.6 C 03/09/19 15:01 Temperature Source Skin 03/09/19 15:01 Pulse 84 03/09/19 15:01 Respiratory Rate 16 03/09/19 15:01 Respiratory Effort Non-Labored 03/09/19 15:04 Blood Pressure 123/60 03/09/19 15:01 Blood Pressure Position Sitting 03/09/19 15:01 Pulse Oximetry 97 03/09/19 15:01 Oxygen Delivery Method Room Air 03/09/19 15:01 Oxygen Flow Rate 0 03/09/19 15:01 Sign Out <MELECIO Kunz - Last Filed: 03/11/19 23:30> Sign Out Data: Sign Out Comment: Care transitioned to Ricky Combs NP with labs, hydration and reassesment pending. Last updated by Selena Vu PA at 03/09/19 16:15
[2019-03-09 16:07] LABS: Bilirubin Negative (Negative); Blood Negative (Negative); Clarity Clear (Clear); Glucose Negative (Negative); Ketones Negative (Negative); Leukocyte Esterase Negative (Negative); Nitrite Negative (Negative); Specific Gravity 1.025 (1.005-1.025); Urobilinogen 0.2 EU/dL (Up TO 0.2); pH 5.5 (5-8)
[2019-03-09 16:22] LABS: Abs Immature Grans 0.03 k/cumm (0.0-0.09); Absolute Basophil Count 0.02 k/cumm (0.0-0.2); Absolute Eosinophil Count 0.11 k/cumm (0.0-0.7); Absolute Lymphocyte Count 3.44 k/cumm (1.2-3.4); Absolute Monocyte Count 0.39 k/cumm (0.11-0.7); Absolute Neutrophil Count 3.58 k/cumm (1.2-6.7); Basophils % 0.3; Eosinophils % 1.5; HCT 37.9 % (36.0-46.0); HGB 12.6 g/dL (12.0-15.5); Immature Grans % 0.4; Lymphocytes % 45.4; Mean Corp. HGB Concentration 33.2 g/dL (32.0-36.0); Mean Corpuscular Hemoglobin 27.9 pg (27.0-33.0); Monocytes % 5.2; Neutrophils % 47.2; Platelet Count 118 x1000/uL (130-400); RBC 4.51 m/cumm (4.00-5.20); RBC Distribution Width 13.6 % (11.7-14.6); White Blood Cell Count 7.57 k/cumm (4.4-10.8)
[2019-03-09] MEDS: Normal Saline 1,000 ML 1000 ML IV (16:24)
[2019-03-09] MEDS: Ondansetron 4 MG/2 ML VIAL IVP (16:25)
[2019-03-09 16:35] LABS: ALT 77 U/L (12-78); AST 39 U/L (15-37); Albumin 3.9 g/dL (3.4-5.0); Alkaline Phosphatase 94 U/L (46-116); Anion Gap 9.9 mmol/L (3-11); BUN 13 mg/dL (7-18); Bilirubin, Total 0.3 mg/dL (0.2-1.0); CO2 26.1 mmol/L (21.0-32.0); CREATININE 0.86 mg/dL (0.55-1.02); Calcium 9.4 mg/dL (8.5-10.1); Chloride 103 mmol/L (98-107); Glucose 124 mg/dL (70-100); Sodium 139 mmol/L (136-145); Total Protein 8.4 g/dL (6.4-8.2)
[2019-03-09 17:43] VITALS: BP 118/53; PULSE 70; RESP 16; O2SAT 98
== END 2019-03-09 17:47 | disposition home or self-care (01) ==
PROVIDERS: Physician Assistant; Emergency Provider Nurse Practitioner Family; PCP Nurse Practitioner Family
DX: R11.0 Nausea (principal)
CPT/HCPCS: 36415; 80053; 96361; 96374; 99284; 81003; 85025; J2405

== ENCOUNTER 2019-05-11 19:10 | Emergency (ER) | payer MEDICAID, SELFPAY ==
[2019-05-11 19:14] VITALS: BP 158/80; PULSE 105; RESP 24; TEMP 36.7; O2SAT 98
--- NOTE | 2019-05-11 19:32 | ED.GENADUL_ITS ---
Discharge Plan Disposition Patient Disposition: HOME Condition: Good Discharge Details Chief Complaint: GenMedical Clinical Impression: Contact dermatitis Primary Care Provider: Deyanira Marcus ED Provider: Selena Vu Home Meds and New Rx's Prescriptions: Continued multivitamin [Daily Multi-Vitamin] 1 EACH tablet 1 ea PO DAILY RF: 0 albuterol sulfate 90 mcg/actuation Hfa Aerosol Inhaler 2 puff INHALATION QID PRNRF: 0 divalproex [Depakote] 250 mg Tablet,Delayed Release (Dr/Ec) 250 mg PO BID RF: 0 pantoprazole 40 mg Tablet,Delayed Release (Dr/Ec) 40 mg PO DAILY RF: 0 loratadine 10 mg capsule 10 mg PO DAILY PRNRF: 0 promethazine 25 mg tablet 25 mg PO Q6H PRN (Reason: nausea and vomiting) Qty: 10 RF: 0 Discharge Instructions Instructions: Hydrocortisone (On the skin), Dermatitis (ED) Additional Instructions: Encourage hydration. Tylenol and ibuprofen as needed for discomfort. Please apply the hydrocortisone cream once daily. Please follow-up with your primary care next week for reevaluation. If you develop fever/chills, increased pain, swelling or other new/worsening symptoms please seek care urgently once again. Please try to avoid the laundry detergent that likely caused this event. Referrals: Deyanira Marcus [Primary Care Provider] - Discharge Data Discharge Date/Time-TO BE ENTERED AT DEPARTURE: 05/11/19 21:49 Medical Decision Making Patient is a 39-year-old female, well-known to myself, with chief complaint of vaginal discomfort. She reports this primarily external pain. First noted this 3 days ago when she experienced dyspareunia. States that the external genitalia has continued to be increasingly uncomfortable. This is particularly bad today after swimming. States that now with her closer monitor this intensified. She denies any fevers or chills. States that today she noted a small amount of white discharge which is atypical for her. No nausea, vomiting, change in bowel or bladder habits. She denies any abdominal pain. Has not noted any rash. States she has had a history of STD but is not forthcoming with which it was but states that it was treated with antibiotics. Has been in a monogamous relationship for the past several years and has been tested for STDs. Significant other is present denies any symptoms. Patient is status post hysterectomy. Reports she has had a history of uterine and cervical cancer. On exam, patient is resting comfortably. She appears nontoxic. No abdominal pain on exam. External evaluation of genitalia reveals exquisite tenderness. Otherwise, no evidence of abnormality. Internal exam shows a scant amount of white discharge which is been sent for vaginal pathology screening. She reports that she has had multiple episodes of BV and is concerned this may be a recurrence. Vaginal pathology screening was negative. Discussed these findings with the patient. We then discussed more topical sources and patient does report that she just changed her laundry detergent to a cheaper brand and that this has caused irritation historically. This is likely what is causing the superficial irritation today. Patient will be treated with topical steroid for contact dermatitis. I advised that she try to avoid this contact in the future. She is given strict return precautions. She will follow-up with women's wellness. All of her questions and concerns were addressed and she is in agreement this plan. HPI General Mode of arrival: ambulatory . Date/Time Provider Initiated Documentation: 05/11/19 19:31 . Limitations to Documentation: no limitations . Information obtained by: patient and RN notes reviewed . History of Present Illness 39 year old F presents to the emergency department with the chief complaint of vaginal pain, described as moderate and similar to prior episodes (similar to when she has had BV historically), with intensity rated at 8. Quality is described as burning, and is localized to the genitals. Patient reports no radiation. Patient started experiencing this day(s) (2) and it has been constant (worse today). No relieving factors improve symptom(s), No exacerbating factors reported . Patient notes no other symptoms.; denies diaphoresis, fever/chills, loss of appetite, nausea/vomiting and rash. Patient did receive the following treatments prior to arrival, none Related Data Home Medications Medication Instructions Recorded Confirmed multivitamin [Daily Multi-Vitamin] 1 ea PO DAILY 12/19/17 05/11/19 albuterol sulfate 2 puff INHALATION QID PRN 10/28/18 05/11/19 loratadine 10 mg PO DAILY PRN 12/18/18 05/11/19 promethazine 25 mg PO Q6H PRN #10 tab 03/09/19 05/11/19 divalproex [Depakote] 250 mg PO BID 05/11/19 05/11/19 pantoprazole 40 mg PO DAILY 05/11/19 05/11/19 Previous Rx's Medication Instructions Recorded promethazine 25 mg PO Q6H PRN #10 tab 03/09/19 Allergies Allergy/AdvReac Type Severity Reaction Status Date / Time amoxicillin Allergy Severe Unverified 05/11/19 19:18 artichoke Allergy Severe ANAPHYLAXIS Unverified 05/11/19 19:18 Penicillins Allergy Intermediate HIVES Unverified 05/11/19 19:18 sodium hypochlorite solution Allergy Intermediate HIVES/SOB Unverified 05/11/19 19:18 [sodium hypochlorite] General Stated Complaint: GenMedical MIKE: 4 Review of Systems Constitutional Constitutional: Reports as per HPI, Denies chills, Denies fatigue, Denies fever(s) and Denies headache(s) ENT Ears, Nose, Mouth, and Throat: Denies headache(s) Cardiovascular Cardiovascular: Reports as per HPI, Denies chest pain and Denies dyspnea Respiratory Respiratory: Reports as per HPI, Denies cough and Denies dyspnea Gastrointestinal Gastrointestinal: Reports as per HPI Genitourinary Genitourinary: Denies abnormal vaginal bleeding, Denies genital lesions, Reports dyspareunia, Denies dysuria, Denies pelvic pain, Denies flank pain, Denies urina ry incontinence, Denies urinary hesitancy, Denies urinary urgency, Reports vaginal discharge, Denies vaginal dryness, Denies vaginal odor and Reports vaginal pruritus Musculoskeletal Musculoskeletal: Reports as per HPI and Denies back pain Integumentary/Breasts Skin/Breast: Reports as per HPI and Denies rash Neurologic Neurologic: Reports as per HPI and Denies headache(s) Endocrine Endocrine: Denies fatigue PFSH Medical History Anxiety and depression Asthma Diabetes mellitus, type 2 Elevated lipids Migraine Obstructive sleep apnea syndrome Polycystic ovaries Surgical History anterior cruciate ligament reconstruction section twice Colonoscopy - MAC (11/26/16) EGD - MAC (11/26/16) Endoscopic Carpal Tunnel release (01/14/09) 09/16/2010 REPEAT ECTR RIGHT Ligation of fallopian tube Open Carpal Tunnel release (03/25/13) RIGHT SIDE, left 8.14.14 Vaginal hysterectomy Social History Smoking/Tobacco Use Status: Former Tobacco Use Alcohol Intake: never Drug use: Never Substance use type: does not use Do you feel safe at home: Yes Do you feel safe in your relationship?: Yes Exam Const General: cooperative, healthy appearing, comfortable, no acute distress and well developed Nutritional Appearance: average body habitus and well nourished Orientation: alert and awake [facility] Head: normal to inspection Mouth: moist mucous membranes Resp Effort & Inspection: normal respiratory effort, able to speak in complete sentences and no respiratory distress Auscultation: clear to auscultation bilaterally, no rales, no rhonchi and no wheezes Cardio Rate: regular rate Rhythm: regular rhythm Heart Sounds: S1 normal and S2 normal GI Inspection: normal to inspection, non-distended and obesity Palpation: soft, no hepatosplenomegaly, not firm, no guarding and not rigid Percussion: normal to percussion Auscultation: normal bowel sounds External Female Exam: external appearance normal, externally tender bilaterally (Patient has exquisite tenderness to gentle touch of external genitalia), no external swelling, no lesions, no lacerations, no ecchymosis and No urethral discharge Speculum Exam - Vagina: normal appearance of the vagina, normal vaginal discharge (Scant amount of thin white discharge is noted in the vaginal vault), no cysts, not erythematous, no foreign bodies and no lacerations Speculum Exam - Cervix: abnormal appearance of the cervix (does not have a cervix, no visualization) Bimanual Exam- Vagina & Uterus: normal bimanual exam, normal vaginal palpation and abnormal uterine size (s/p hysterectomy) Bimanual Exam- Adnexa, other: normal adnexae OB/External & Speculum: no foreign bodies Back/Spine/Pelvis Back: no CVA tenderness Skin General skin exam: no rashes or lesions noted Trauma: no lacerations or abrasions Neuro General: alert and awake Cognition: normal cognition Speech: speech normal Gait: normal gait Psych Appearance: grossly normal and well kempt Mental Status: mental status grossly normal Speech and Movement: speech and movement normal Course Vital Signs Vital signs: Vital Signs Temperature 36.7 C 05/11/19 19:14 Pulse 105 H 05/11/19 19:14 Respiratory Rate 24 05/11/19 19:14 Blood Pressure 158/80 H 05/11/19 19:14 Pulse Oximetry 98 05/11/19 19:14 Temperature 36.7 C 05/11/19 19:14 Pulse 105 H 05/11/19 19:14 Respiratory Rate 24 05/11/19 19:14 Respiratory Effort Non-Labored 05/11/19 19:21 Respiratory Depth Normal 05/11/19 19:21 Respiratory Pattern Normal 05/11/19 19:21 Blood Pressure 158/80 H 05/11/19 19:14 Blood Pressure Position Sitting 05/11/19 19:14 Pulse Oximetry 98 05/11/19 19:14 Oxygen Delivery Method Room Air 05/11/19 19:14 Oxygen Flow Rate 0 05/11/19 19:14 Pain Level 8 05/11/19 19:14
[2019-05-11 20:54] LABS: Bilirubin Negative (Negative); Blood Trace-intact (Negative); Clarity Clear (Clear); Glucose Negative (Negative); Ketones Trace mg/dL (Negative); Leukocyte Esterase Negative (Negative); Nitrite Negative (Negative); Specific Gravity 1.025 (1.005-1.025); Urobilinogen 0.2 EU/dL (Up TO 0.2); pH 5.5 (5-8)
[2019-05-11 21:04] LABS: Bacteria Moderate HPF (Negative); C & S Indicated? Yes; Casts Negative LPF (Negative); Crystals Negative HPF (Negative); Epithelial Cells Moderate HPF (Negative); Mucus Negative (Negative); RBC 0-2 (0-2); WBC 0-2 HPF (0-5)
[2019-05-11] MEDS: Hydrocortisone 1% CR 30 GM TUBE (21:45)
== END 2019-05-11 21:49 | disposition home or self-care (01) ==
PROVIDERS: Emergency Provider Physician Assistant; PCP Nurse Practitioner Family
DX: L25.9 Unspecified contact dermatitis, unspecified cause (principal); E11.9 Type 2 diabetes mellitus without complications
CPT/HCPCS: 99282; 81003; 81015; 87086; 87480; 87510; 87660

== ENCOUNTER 2019-05-26 19:23 | Emergency (ER) | payer MEDICAID, SELFPAY ==
[2019-05-26 19:35] VITALS: BP 131/58; PULSE 97; RESP 20; TEMP 36.5; O2SAT 95
--- NOTE | 2019-05-26 20:03 | DI.RAD_ITS ---
EXAM: XR RIBS RT W PA LAT CHEST INDICATION: fell, right rib pain. COMPARISON: CHEST 2 VIEWS PA,LAT from 04/14/2016 TECHNIQUE: 2D digital imaging was performed. FINDINGS: The heart size and pulmonary vasculature are within normal limits. The lungs are clear. No effusion or pneumothorax is identified. No rib fractures identified. Degenerative changes are seen in the s pine. IMPRESSION: No acute abnormality.
--- NOTE | 2019-05-26 20:17 | DI.RAD_ITS ---
EXAM: XR THORACIC SPINE COMPLETE INDICATION: fall, midline L1 spine pain. COMPARISON: CHEST 2 VIEWS PA,LAT from 08/18/2011 LEFT CLAVICLE from 02/21/2014 CHEST 2 VIEWS PA,LAT from 10/02/2015 CHEST 2 VIEWS PA,LAT from 04/14/2016 TECHNIQUE: 2D digital imaging was performed. FINDINGS: There is normal alignment of the thoracic spine. The paraspinal lines are unremarkable. There are d egenerative changes seen in the spine. There is increased density at the superior endplate of T12. There are endplate osteophytes at the T11-T12 disc level. There is also disc space narrowing at this level. The increased sclerosis likely reflects degenerative changes. Fracture cannot be entirely e xcluded. IMPRESSION: Increased sclerosis of the superior endplate of T12 with a question of decreased height of the verteb ral body. This may be degenerative in nature. Acute fracture should also be considered. If there i s further clinical concern, MRI should be considered for further evaluation.
--- NOTE | 2019-05-26 20:17 | DI.RAD_ITS ---
EXAM: XR LUMBAR SPINE AP, LAT INDICATION: fall, midline L1 spine pain. COMPARISON: LUMBAR SPINE COMPLETE from 06/22/2010 TECHNIQUE: 2D digital imaging was performed. FINDINGS: There are 5 lumbar type vertebral bodies. There is posterior spinal fusion at L5-S1. No acute fract ure or dislocation is present. Degenerative changes are seen in the lower thoracic spine. IMPRESSION: No acute abnormality in the lumbar spine.
--- NOTE | 2019-05-26 20:24 | ED.GENADUL_ITS ---
Discharge Plan Disposition Patient Disposition: HOME Condition: Good Discharge Details Chief Complaint: Chest/Rib Clinical Impression: Rib pain on right side, Back pain, History of vertebral compression fracture Primary Care Provider: Deyanira Marcus ED Provider: Adolfo Keller Home Meds and New Rx's Prescriptions: New acetaminophen [Mapap Extra Strength] 500 MG tablet 1,000 mg PO Q6H 5 Days Qty: 60 RF: 0 lidocaine [Lidoderm] 1 PATCH patch 1 patch Topical Q24H Qty: 4 RF: 0 ibuprofen [Motrin IB] 200 MG tablet 600 mg PO Q6H 5 Days Qty: 60 RF: 0 No Action multivitamin [Daily Multi-Vitamin] 1 EACH tablet 1 ea PO DAILY RF: 0 albuterol sulfate 90 mcg/actuation Hfa Aerosol Inhaler 2 puff INHALATION QID PRNRF: 0 divalproex [Depakote] 250 mg Tablet,Delayed Release (Dr/Ec) 250 mg PO BID RF: 0 pantoprazole 40 mg Tablet,Delayed Release (Dr/Ec) 40 mg PO DAILY RF: 0 loratadine 10 mg capsule 10 mg PO DAILY PRNRF: 0 promethazine 25 mg tablet 25 mg PO Q6H PRN (Reason: nausea and vomiting) Qty: 10 RF: 0 Discharge Instructions Instructions: Back Pain (ED), Chest Wall Pain (ED) Additional Instructions: At this time your x-rays that show no evidence of fracture for your ribs. I suspect that you did notably bruised your ribs. Please use the incentive spirometer daily, and achieve volumes of 2000 mL's 5-10 times per day to prevent any pneumonia. Please take Tylenol and Motrin [id number] as directed. Please use Lidoderm patch as directed. If your insurance does not cover the Lidoderm patches, you can buy [id number] patches for 4% which worked almost just as well. If you have continued pain that you feel is intolerable and not improving, please return to the ER during the day and we can perform a rib block. The x-rays of your vertebra do demonstrate a small decrease in size of your T12 vertebra, which may be a very small acute fracture or a chronic fracture. It is difficult to tell. Thankfully you show no signs of requiring surgical intervention at this time. If you notice any worsening of your symptoms, or any new symptoms such as vomiting, diarrhea, fever, chills, shortness of breath, chest pain, numbness, weakness, loss of control for your bowels or bladder, or fainting , please return immediately to the emergency department for reevaluation. Please follow up with your primary care provider as soon as possible for reassessment and reevaluation. As always, it was a pleasure participating in your medical care today. Referrals: Deyanira Marcus [Primary Care Provider] - Medical Decision Making This is a 39-year-old female with a past medical history of type 2 diabetes, hypertension, high cholesterol who presents today for evaluation after a fall and subsequent right rib pain. Patient was moving objects today at her house when she slid on a mattress all the way down the stairs and when she got to the bottom hit her right ribs. She did not hit her head, no other trauma. She continued to move objects. Later in the day while moving a Trinity also hit her on the right roll lower ribs. She has had continued pain since then. Pain is mild. Slightly worse with breathing. She does have mild cough. She denies any severe abdominal pain. Physical exam demonstrates no evidence of significant abnormality. Pain is well controlled. Bedside ultrasound demonstrates no evidence of free intra-abdominal fluid or evidence of hemorrhage, no evidence of pericardial effusion or pneumothorax. We did discuss CT imaging, and the patient would like to hold off on imaging at this time after understanding the risks and benefits. We will get an x-ray of the right ribs to rule out fracture. We will give NSAIDs, and Lidoderm patch for pain control. 9:47 PM Patient's x-ray of her chest, lungs and ribs demonstrate no evidence of acute fracture pneumothorax. On reassessment the patient's pain is notably improved but not yet resolved. Back pain is well controlled. Repeat clinical exam continues to show no clinical evidence of cauda equina syndrome, or any evidence of nerve or cord impingement. She has no bowel or bladder incontinence, and a normal exam otherwise. X-ray results of the thoracic and lumbar spine demonstrate a small amount of decreased T12 vertebral body height, and a slight increased density of the superior endplate of T12. [facility] radiology does feel that this may be chronic or acute. Patient's pain does appear to be somewhat around this area. With no evidence of severe fracture requiring surgery or immediate stabilization, no clinical evidence of cauda equina syndrome cord co mpression or nerve compression whatsoever do not feel that immediate intervention is indicated clinically at this time. This may in fact just be her chronic findings. However I do feel that the patient does require prompt follow-up with her PCP in regard to this. I had a long discussion with the patient and her family regarding symptoms for which to immediately return including concerning neurologic findings, weakness, or increase in pain. Recommend continued NSAIDs and Lidoderm patch at home. Also discussed option for returning for rib block if needed. Center spirometry was given and it did demonstrate good total lung volumes. At this time I feel that the patient is clinically stable for discharge based on her current symptomatology and exam findings. I have extensively reviewed the treatment plan and discharge instructions with the patient and their family. I have addressed all patient concerns at this time. The patient and family was made aware of what symptoms to monitor for that would warrant a return to the emergency department. Discussed the plan with the patient and family, they demonstrate verbal understanding and agreement with our assessment and plan at this time. FINDINGS: Bones/joints: No acute fracture or dislocation. Lumbar spinal fusion hardware is partially visualized. Soft tissues: Normal. IMPRESSION: No acute fracture or dislocation. FINDINGS: Lungs: Unremarkable. No consolidation. Pleural space: Unremarkable. No pleural effusion. No pneumothorax. Heart/Mediastinum: Unremarkable. No cardiomegaly. Bones/joints: Unremarkable. IMPRESSION: No acute findings. Thank you for allowing us to participate in the care of your patient. Dictated and Authenticated by: Alysia Miles MD FINDINGS: Vertebrae: There are 5 nonrib-bearing lumbar vertebral bodies. Posterior spinal fusion is noted at L5- S1. There is no acute fracture or listhesis. Vertebral body heights are maintained. Degenerative changes are noted at the T11-T12 level. Soft tissues: Normal. IMPRESSION: No acute fracture or listhesis. Thank you for allowing us to participate in the care of your patient. Dictated and Authenticated by: Alysia Miles MD 05/26/2019 9:40 PM Eastern Time ([place] & [place]) FINDINGS: Vertebrae: Increased density noted at the superior endplate of T12, with a decreased T12 vertebral body height, could be related to degenerative changes or related to acute fracture. Soft tissues: Normal. IMPRESSION: Decreased T12 vertebral body height may be related to associated degenerative changes or secondary to acute fracture. Correlate with point tenderness in this region for acuity. If there is further clinical concern, an MRI may be performed for further evaluation. Thank you for allowing us to participate in the care of your patient. Dictated and Authenticated by: Alysia Miles MD E-FAST Exam type: Diagnostic Indication for exam: Blunt trauma Views obtained: hepatorenal, perisplenic, suprapubic, pericardial, R lung, L lung Findings and interpretations: all views were adequate. No abdominal free fluid or pericardial fluid seen. Normal lung sliding, normal sea shore sign, no bar code sign indicating no pneumothorax. The patient tolerated the procedure well and there were no complications. HPI General Date/Time Provider Initiated Documentation: 05/26/19 19:36 . HPI Narrative: This is a 39-year-old female with past medical history of reactive airway disease, type 2 diabetes, high cholesterol, who presents today for evaluation of fall and subsequent right rib pain. Patient states that 3-1/2 to 4 hours ago she was moving furniture, and unfortunately tripped at the top of the steps and rode a mattress all the way to the bottom, eventually hitting the bottom with her right ribs. She continued to move things throughout the day and unfortunately got hit a second time on the right ribs by a Trinity. She admits to mild pain when she coughs or breathes. She states that the pain is located in the right lower ribs, she denies any severe abdominal pain. She denies any nausea vomiting or diarrhea. She denies any hematochezia, melena, hematemesis, hematuria. She denies any numbness tingling or weakness. She denies any other complaints at this time. No other modifying factors. She did not hit her head. She denies any neck pain or headache. Related Data Home Medications Medication Instructions Recorded Confirmed multivitamin [Daily Multi-Vitamin] 1 ea PO DAILY 12/19/17 05/11/19 albuterol sulfate 2 puff INHALATION QID PRN 10/28/18 05/11/19 loratadine 10 mg PO DAILY PRN 12/18/18 05/11/19 promethazine 25 mg PO Q6H PRN #10 tab 03/09/19 05/11/19 divalproex [Depakote] 250 mg PO BID 05/11/19 05/11/19 pantoprazole 40 mg PO DAILY 05/11/19 05/11/19 acetaminophen [Mapap Extra 1,000 mg PO Q6H 5 Days #60 tab 05/26/19 Strength] ibuprofen [Motrin Ib] 600 mg PO Q6H 5 Days #60 tab 05/26/19 lidocaine [Lidoderm] 1 patch TOPICAL Q24H #4 patch 05/26/19 Previous Rx's Medication Instructions Recorded promethazine 25 mg PO Q6H PRN #10 tab 03/09/19 acetaminophen [Mapap Extra 1,000 mg PO Q6H 5 Days #60 tab 05/26/19 Strength] ibuprofen [Motrin Ib] 600 mg PO Q6H 5 Days #60 tab 05/26/19 lidocaine [Lidoderm] 1 patch TOPICAL Q24H #4 patch 05/26/19 Allergies Allergy/AdvReac Type Severity Reaction Status Date / Time amoxicillin Allergy Severe Unverified 05/26/19 19:38 artichoke Allergy Severe ANAPHYLAXIS Unverified 05/26/19 19:38 Penicillins Allergy Intermediate HIVES Unverified 05/26/19 19:38 sodium hypochlorite solution Allergy Intermediate HIVES/SOB Unverified 05/26/19 19:38 [sodium hypochlorite] General Stated Complaint: Chest/Rib MIKE: 4 Review of Systems All systems reviewed & are unremarkable except as noted in HPI and below PFSH Social History Smoking/Tobacco Use Status: Former Tobacco Use Alcohol Intake: never Drug use: Never Substance use type: does not use Do you feel safe at home: Yes Do you feel safe in your relationship?: Yes Exam Narrative Exam Narrative: 1.Const: Well-nourished, Well-developed, appearing stated age 2.Eyes: PERRL, no conjunctival injection, and symmetrical lids. 3.ENT: Atraumatic external nose and ears. Moist MM. Neck: Symmetric, trachea midline, No thyromegaly. There is no evidence of raccoon eyes, mendez sign, CSF rhinorrhea, mastoid tenderness, cranial crepitus, hemotympanum, exophthalmos, or hyphema. Patient demonstrates intact dentition with no signs of tooth avulsion or fracture, no signs of jaw deformity, no evidence of a LeFort's fracture, with an intact palate, nose and orbital region. There is no evidence of a nasal septal hematoma. No proptosis. Jaw closes symmetrically. Airway is clear. 4.CVS: Regular rate and rhythm, Normal s1 and s2. No murmurs, carotid bruits, rubs, or gallops. Radial pulses 2+ bilaterally and symmetric. Dorsalis pedis pulses 2+ bilaterally and symmetric. 2+ capillary refill. No evidence of distant heart sounds. No extremity edema. No evidence of gross hemorrhage. 5.RESP: Airway clear, no obstructions. No abrasions or ecchymosis. Chest movement symmetric with respirations. Trachea midline. No crepitus. No step offs. No paradoxical movements. Lungs are clear to auscultation bilaterally. No rales, rhonchi, wheezing or stridor. Breath sound symmetric. No Sucking chest wounds. No clinical evidence of significant chest trauma. Patient does have mild subjective tenderness over the right lower ribs. Bedside ultrasound demonstrates normal lung slide bilaterally. 6.GI: Soft, nondistended, nontender. No significant pain or tenderness in the right upper right mid or right lower abdominal regions. Referred tenderness from the right ribs. Bowel tones normoactive. No masses or organomegaly. No ecchymosis or abrasions. No periumbilical ecchymosis or seatbelt sign. No flank or CVA tenderness. No clinical signs of significant trauma. No clinical evidence of significant abdominal trauma. 7.MSK: No gross deformities or discolorations or lesions. Tolerates full range of motion of extremities without tenderness. All compartments of upper and lower extremities are soft with no tenderness. Vascular exam demonstrates brisk capillary refill and intact pulses in all extremities. Pelvic exam demonstrates a stable pelvis, nontender to lateral compression and palpation of symphysis pubis.. No clinical evidence of significant musculoskeletal trauma. No midline tenderness to palpation over the CTS spine. Minimal midline tenderness over L1. In conjunction with mild paraspinal tenderness over the same location. No step-off. No other abnormality. Normal ROM in flexion, extension, side bend, and rotation. Patient has +5 out of 5 strength in the lower extremities in dorsiflexion and plantarflexion, knee flexion and extension, hip flexion and extension. There is +2 over 2 dorsalis pedis pulses bilaterally. There is normal sensation to the skin with light touch at the foot, knee, and hip. Normal saddle sensation. Good sensation over the deep sural nerve area bilaterally. Rectal exam demonstrates good rectal tone and perirectal sensation. Reflexes are +2 over 4 in the patellar reflex bilaterally. +5 out of 5 strength in the medial, ulnar, radial nerve distribution bilaterally in the hands as well as intact light touch sensation to these dermatomes on the hands 8.Skin: Warm, Dry. No rashes or lesions. 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 Sensation grossly intact, no focal neurologic deficits. 10.Psych: (AAO) x3. Appropriate mood and affect Course Vital Signs Vital signs: Vital Signs Temperature 36.5 C 05/26/19 19:35 Pulse 97 H 05/26/19 19:35 Respiratory Rate 20 05/26/19 19:35 Blood Pressure 131/58 L 05/26/19 19:35 Pulse Oximetry 95 05/26/19 19:35 Temperature 36.5 C 05/26/19 19:35 Temperature Source Tympanic 05/26/19 19:35 Pulse 97 H 05/26/19 19:35 Respiratory Rate 20 05/26/19 19:35 Respiratory Effort Non-Labored 05/26/19 19:39 Respiratory Depth Normal 05/26/19 19:39 Respiratory Pattern Normal 05/26/19 19:39 Blood Pressure 131/58 L 05/26/19 19:35 Blood Pressure Position Sitting 05/26/19 19:35 Pulse Oximetry 95 05/26/19 19:35 Oxygen Delivery Method Room Air 05/26/19 19:35 Oxygen Flow Rate 0 05/26/19 19:35 Pain Level 6 05/26/19 19:39
[2019-05-26] MEDS: Acetaminophen 500 MG TAB 1000 MG PO (21:07)
[2019-05-26] MEDS: Ibuprofen 800 MG TAB PO (21:08)
[2019-05-26] MEDS: Lidocaine 5% Patch 1 PATCH TP (21:08)
--- NOTE | 2019-05-26 21:38 | DI.VRAD_ITS ---
PROCEDURE INFORMATION: Exam: XR Right Ribs Exam date and time: 05/26/2019 8:35 PM Clinical history: 39 years old, female; Chest wall pain; Right; Patient HX: Fall, R rib pain TECHNIQUE: Imaging protocol: XR Right ribs. Views: 2 views. COMPARISON: CR CHEST 2 VIEWS PA,LAT 04/14/2016 10:11 PM FINDINGS: Bones/joints: No acute fracture or dislocation. Lumbar spinal fusion hardware is partially visualized. Soft tissues: Normal. IMPRESSION: No acute fracture or dislocation. PROCEDURE INFORMATION: Exam: XR Chest, 2 Views Exam date and time: 05/26/2019 8:35 PM Clinical history: 39 years old, female; Chest wall pain; Right; Patient HX: Fall, R rib pain TECHNIQUE: Imaging protocol: XR of the chest Views: 2 views. COMPARISON: CR CHEST 2 VIEWS PA,LAT 04/14/2016 10:11 PM FINDINGS: Lungs: Unremarkable. No consolidation. Pleural space: Unremarkable. No pleural effusion. No pneumothorax. Heart/Mediastinum: Unremarkable. No cardiomegaly. Bones/joints: Unremarkable. IMPRESSION: No acute findings. Dictated and Authenticated by: Alysia Miles MD. Ordering:NATHAN Mata MD
--- NOTE | 2019-05-26 21:40 | DI.VRAD_ITS ---
PROCEDURE INFORMATION: Exam: XR Lumbosacral Spine, 2 or 3 Views Exam date and time: 05/26/2019 8:41 PM Clinical history: 39 years old, female; Other: Fall, midline l1 spine pain TECHNIQUE: Imaging protocol: XR of the lumbosacral spine, 2 or 3 views. COMPARISON: MRI - LUMBAR SPINE WO CONTRAST 10/29/2013 4:20 PM FINDINGS: Vertebrae: There are 5 nonrib-bearing lumbar vertebral bodies. Posterior spinal fusion is noted at L5-S1. There is no acute fracture or listhesis. Vertebral body heights are maintained. Degenerative changes are noted at the T11-T12 level. Soft tissues: Normal. IMPRESSION: No acute fracture or listhesis. Dictated and Authenticated by: Alysia Miles MD. Ordering:NATHAN Mata MD
--- NOTE | 2019-05-26 21:43 | DI.VRAD_ITS ---
PROCEDURE INFORMATION: Exam: XR Thoracic Spine, 3 Views Exam date and time: 05/26/2019 8:41 PM Clinical history: 39 years old, female; Other: Fall, midline l1 spine pain TECHNIQUE: Imaging protocol: XR of the thoracic spine, 3 views. COMPARISON: No relevant prior studies available. FINDINGS: Vertebrae: Increased density noted at the superior endplate of T12, with a decreased T12 vertebral body height, could be related to degenerative changes or related to acute fracture. Soft tissues: Normal. IMPRESSION: Decreased T12 vertebral body height may be related to associated degenerative changes or secondary to acute fracture. Correlate with point tenderness in this region for acuity. If there is further clinical concern, an MRI may be performed for further evaluation. Dictated and Authenticated by: Alysia Miles MD. Ordering:NATHAN Mata MD
== END 2019-05-26 21:55 | disposition home or self-care (01) ==
PROVIDERS: Emergency Provider Student in an Organized Health Care Education/Training Program; PCP Nurse Practitioner Family
DX: R07.81 Pleurodynia (principal); M54.6 Pain in thoracic spine; W01.0XXA Fall on same level from slipping, tripping and stumbling without subsequent striking against object, initial encounter; I10 Essential (primary) hypertension; E11.9 Type 2 diabetes mellitus without complications
CPT/HCPCS: 99284; 71046; 71100; 72072; 72100; 99282

== ENCOUNTER 2019-06-21 11:33 | Emergency (ER) | payer MEDICAID, SELFPAY ==
[2019-06-21 11:36] VITALS: BP 160/50; PULSE 68; RESP 18; TEMP 36.6; O2SAT 96
--- NOTE | 2019-06-21 11:45 | W.ED.GENAD ---
Discharge Plan Disposition Patient Disposition: HOME Condition: Stable Discharge Details Chief Complaint: GenMedical Clinical Impression: Diarrhea Primary Care Provider: Deyanira Marcus ED Provider: Dustin Blanco Home Meds and New Rx's Prescriptions: Continued multivitamin [Daily Multi-Vitamin] 1 EACH tablet 1 ea PO DAILY RF: 0 albuterol sulfate 90 mcg/actuation Hfa Aerosol Inhaler 2 puff INHALATION QID PRNRF: 0 divalproex [Depakote] 250 mg Tablet,Delayed Release (Dr/Ec) 250 mg PO BID RF: 0 pantoprazole 40 mg Tablet,Delayed Release (Dr/Ec) 40 mg PO DAILY RF: 0 lidocaine [Lidoderm] 1 PATCH patch 1 patch Topical Q24H Qty: 4 RF: 0 loratadine 10 mg capsule 10 mg PO DAILY PRNRF: 0 promethazine 25 mg tablet 25 mg PO Q6H PRN (Reason: nausea and vomiting) Qty: 10 RF: 0 Discharge Instructions Additional Instructions: try taking over the counter imodium if you have severe abdominal pain, high fevers or persistent vomit return to the emergency department if not better within 2 weeks follow up with your primary care provider Medical Decision Making 39 yo female comes in with 2 weeks of intermittent body aches, nausea and loose stools. Denies any recent travel or abx. Denies any chest pain, sob, abdominal pain and denies any chance of . Denies drug use. She is in no distress on exam speaking in full sentences with clear rhinorrhea, clear lungs and no murmurs rashes and no abdominal tenderness and denies any nausea now. Suspect viral illness and given well appearance with no evidence of dehydration do not feel IVF or labs indicated other than flu swab. flu swab negative and remains stable. Given well appearance do not feel further w/u indicated, advised f/u with pcp and return precautions given Differential Diagnosis Differential Diagnosis: flu, viral illness, norovirus Lab Data Lab results reviewed: Yes I reviewed the patient's lab results. HPI General Mode of arrival: ambulatory. Date/Time Provider Initiated Documentation: 06/21/19 11:42. Limitations to Documentation: no limitations. Information obtained by: patient. History of Present Illness 39 year old F presents to the emergency department with the chief complaint of body aches, described as mild, Patient started experiencing this week(s) (2) and it has been intermittent. No relieving factors improve symptom(s), No exacerbating factors reported . Patient did receive the following treatments prior to arrival, none Related Data Home Medications Medication Instructions Recorded Confirmed multivitamin [Daily Multi-Vitamin] 1 ea PO DAILY 12/19/17 06/21/19 albuterol sulfate 2 puff INHALATION QID PRN 10/28/18 06/21/19 loratadine 10 mg PO DAILY PRN 12/18/18 06/21/19 promethazine 25 mg PO Q6H PRN #10 tab 03/09/19 06/21/19 divalproex [Depakote] 250 mg PO BID 05/11/19 06/21/19 pantoprazole 40 mg PO DAILY 05/11/19 06/21/19 lidocaine [Lidoderm] 1 patch TOPICAL Q24H #4 patch 05/26/19 06/21/19 Previous Rx's Medication Instructions Recorded promethazine 25 mg PO Q6H PRN #10 tab 03/09/19 lidocaine [Lidoderm] 1 patch TOPICAL Q24H #4 patch 05/26/19 Allergies Allergy/AdvReac Type Severity Reaction Status Date / Time amoxicillin Allergy Severe Unverified 06/21/19 11:42 artichoke Allergy Severe ANAPHYLAXIS Unverified 06/21/19 11:42 Penicillins Allergy Intermediate HIVES Unverified 06/21/19 11:42 sodium hypochlorite solution Allergy Intermediate HIVES/SOB Unverified 06/21/19 11:42 [sodium hypochlorite] General Stated Complaint: GenMedical MIKE: 3 Review of Systems All systems reviewed & are unremarkable except as noted in HPI and below Constitutional Constitutional: Denies chills, Denies fever(s) and Denies weakness ENT Ears, Nose, Mouth, and Throat: Denies change in voice Cardiovascular Cardiovascular: Denies chest pain Gastrointestinal Gastrointestinal: Denies abdominal pain and Denies vomiting Neurologic Neurologic: Denies weakness [facility] Social History Smoking/Tobacco Use Status: Former Tobacco Use Alcohol Intake: never Drug use: Never Substance use type: does not use Do you feel safe at home: Yes Do you feel safe in your relationship?: Yes Exam Const General: no acute distress Orientation: alert HENMT Head: normal to inspection Ears: external ears normal General nose exam: external nose normal Mouth: moist mucous membranes Eyes General: appearance normal, both eyes and all related structures Neck Neck: normal visual inspection Resp Effort & Inspection: normal respiratory effort and able to speak in complete sentences Cardio Rate: regular rate Skin General skin exam: no rashes or lesions noted Neuro General: alert and oriented x3 Extrem General: normal to inspection Psych Mental Status: mental status grossly normal Course Vital Signs Vital signs: Vital Signs Temperature 36.6 C 06/21/19 11:36 Pulse 68 06/21/19 11:36 Respiratory Rate 18 06/21/19 11:36 Blood Pressure 160/50 H 06/21/19 11:36 Pulse Oximetry 96 06/21/19 11:36 Temperature 36.6 C 06/21/19 11:36 Temperature Source Skin 06/21/19 11:36 Pulse 68 06/21/19 11:36 Respiratory Rate 18 06/21/19 11:36 Respiratory Effort Non-Labored 06/21/19 11:39 Blood Pressure 160/50 H 06/21/19 11:36 Blood Pressure Position Sitting 06/21/19 11:36 Pulse Oximetry 96 06/21/19 11:36 Oxygen Delivery Method Room Air 06/21/19 11:36 Oxygen Flow Rate 0 06/21/19 11:36 Pain Level 0 06/21/19 11:36 Lab/Test Results Lab/Test Results: 06/21/19 11:43 Nasopharynx Influenza Types A,B Antigen - Pending
[2019-06-21 12:57] VITALS: BP 142/89; PULSE 89; RESP 18; TEMP 36.4; O2SAT 96
== END 2019-06-21 12:58 | disposition home or self-care (01) ==
PROVIDERS: Emergency Provider Emergency Medicine; PCP Nurse Practitioner Family
DX: R19.7 Diarrhea, unspecified (principal); M79.10 Myalgia, unspecified site; R11.0 Nausea
CPT/HCPCS: 87449; 99282

== ENCOUNTER 2019-07-29 15:36 | Emergency (ER) | payer MEDICAID, SELFPAY ==
[2019-07-29 15:46] VITALS: BP 131/46; PULSE 80; RESP 16; TEMP 36.4; O2SAT 96
--- NOTE | 2019-07-29 16:24 | W.ED.GENAD ---
Discharge Plan Disposition Patient Disposition: HOME Condition: Good Discharge Details Chief Complaint: Orthopedic Clinical Impression: Neck muscle spasm Primary Care Provider: Deyanira Marcus ED Provider: Deyanira Thompson Home Meds and New Rx's Prescriptions: New cyclobenzaprine 10 mg tablet 10 mg PO TID PRN (Reason: muscle spasm) Qty: 4 RF: 0 No Action multivitamin [Daily Multi-Vitamin] 1 EACH tablet 1 ea PO DAILY RF: 0 albuterol sulfate 90 mcg/actuation Hfa Aerosol Inhaler 2 puff INHALATION QID PRNRF: 0 divalproex [Depakote] 250 mg Tablet,Delayed Release (Dr/Ec) 250 mg PO BID RF: 0 pantoprazole 40 mg Tablet,Delayed Release (Dr/Ec) 40 mg PO DAILY RF: 0 lidocaine [Lidoderm] 1 PATCH patch 1 patch Topical Q24H Qty: 4 RF: 0 loratadine 10 mg capsule 10 mg PO DAILY PRNRF: 0 promethazine 25 mg tablet 25 mg PO Q6H PRN (Reason: nausea and vomiting) Qty: 10 RF: 0 Discharge Instructions Instructions: Muscle Spasm (ED) Additional Instructions: Drink plenty of fluids. Rest activities as tolerated. Use Motrin for inflammation with food in your stomach as discussed. Use Tylenol for pain if needed. Muscle relaxant as prescribed. Do not drive, drink alcohol, care to children alone while taking this medication. This will cause drowsiness; expect sedation. Consider TENS unit as discussed for release of muscle spasm. Avoid sleeping on the left shoulder, avoid lifting car seat temporarily. Consider pendulum exercises as discussed. Follow-up with customer success specialist for reevaluation as scheduled. Return sooner for any worsening, concerns, alarming symptoms, ill feeling if needed sooner Discharge Data Discharge Date/Time-TO BE ENTERED AT DEPARTURE: 07/29/19 16:35 Medical Decision Making This is a 39-year-old patient presenting for complaints of left shoulder and neck pain. Specifically patient reports onset of left neck pain this week. Patient reports the lateral musculature along the left side of the neck is her primary complaint of soreness. Patient reports pain is worse with rotation of the neck toward the left. Patient has full range of motion of neck with flexion extension. Patient has no midline neck pain or complaints. Patient reports lateral neck pain radiating toward the left shoulder. Denies any associated chest pain difficulty breathing shortness of breath or wheezing. Patient does report some improvement with ice has been taking Motrin and Tylenol [id number]. Patient reports discomfort when laying on that side pain will occasionally wake her from sleep. Patient reports the pain is worse with overhead reaching and range of motion of the left arm. Patient is also complaining of numbness below the forearm specifically in the hand when carrying a car seat. Patient reports she experiences numbness transiently when carrying the car seat which fully resolved after stopping carrying the car seat with her left arm. Patient does have a history of an ulnar nerve release and does have a follow-up appointment with orthopedics next week. Patient is concerned with persistence of discomfort despite use of Motrin and Tylenol. On exam patient does have notable muscular tenderness along the left lateral musculature with no associated midline tenderness. Patient does have full passive range of motion of the left shoulder. 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 Patient has no focal weakness or neuro vascular abnormalities at this time distally. Exercise Equipment Specialist strength intact. Rice encouraged, use of TENS unit encouraged, muscle relaxant provided for patient's comfort. Discussed appropriate use of this medication. Rice encouraged as well as pendulum exercises and follow-up with orthopedics if not improving. Patient reports her understanding. HPI General Date/Time Provider Initiated Documentation: 07/29/19 15:59. HPI Narrative: Is a 39-year-old patient presenting for complaints of left shoulder pain. Patient reports left shoulder pain for the last week. Patient specifically complaining of lateral neck pain with mild radiation toward the shoulder and upper arm. Patient denies any chest pain, difficulty breathing shortness of breath or wheezing. Patient reports arm pain is worse with range of motion. Patient reports arm pain is worse with range of motion of the neck turning laterally toward the left. Patient denies any posterior neck pain with flexion extension. Patient is also complaining of tingling and numbness of the hand which occurs while carrying a car seat on the affected arm. Resolves after letting go of the car seat. Patient reports some difficulty sleeping due to positioning. Patient has tried Motrin and Tylenol over the last week. Patient has tried ice which was somewhat helpful for swelling. Patient denies any fevers, chills, nausea vomiting or ill feeling. Patient does have a history of an ulnar release with Dr. Becerra and is scheduled for follow-up next week. No specific injury or trauma. Denies any falls. Related Data Home Medications Medication Instructions Recorded Confirmed multivitamin [Daily Multi-Vitamin] 1 ea PO DAILY 12/19/17 07/29/19 albuterol sulfate 2 puff INHALATION QID PRN 10/28/18 07/29/19 loratadine 10 mg PO DAILY PRN 12/18/18 07/29/19 promethazine 25 mg PO Q6H PRN #10 tab 03/09/19 07/29/19 divalproex [Depakote] 250 mg PO BID 05/11/19 07/29/19 pantoprazole 40 mg PO DAILY 05/11/19 07/29/19 lidocaine [Lidoderm] 1 patch TOPICAL Q24H #4 patch 05/26/19 07/29/19 cyclobenzaprine 10 mg PO TID PRN #4 tab 07/29/19 Previous Rx's Medication Instructions Recorded promethazine 25 mg PO Q6H PRN #10 tab 03/09/19 lidocaine [Lidoderm] 1 patch TOPICAL Q24H #4 patch 05/26/19 cyclobenzaprine 10 mg PO TID PRN #4 tab 07/29/19 Allergies Allergy/AdvReac Type Severity Reaction Status Date / Time amoxicillin Allergy Severe Unverified 07/29/19 15:49 artichoke Allergy Severe ANAPHYLAXIS Unverified 07/29/19 15:49 Penicillins Allergy Intermediate HIVES Unverified 07/29/19 15:49 sodium hypochlorite solution Allergy Intermediate HIVES/SOB Unverified 07/29/19 15:49 [sodium hypochlorite] General Stated Complaint: Orthopedic MIKE: 4 Review of Systems No All systems reviewed & are unremarkable except as noted in HPI and below ENT Ears, Nose, Mouth, and Throat: Reports neck pain Cardiovascular Cardiovascular: Denies chest pain Respiratory Respiratory: Denies cough Musculoskeletal Musculoskeletal: Denies abnormal gait, Denies back pain, Reports neck pain, Reports numbness and Reports radiating pain into limb Integumentary/Breasts Skin/Breast: Denies rash and Denies wounds Neurologic Neurologic: Denies abnormal gait and Reports numbness PFSH Medical History Anxiety and depression Asthma Diabetes mellitus, type 2 Elevated lipids Migraine Obstructive sleep apnea syndrome Polycystic ovaries Social History Smoking/Tobacco Use Status: Former Tobacco Use Alcohol Intake: never Drug use: Never Substance use type: does not use Do you feel safe at home: Yes Do you feel safe in your relationship?: Yes Exam Narrative Exam Narrative: CONST: Healthy appearing patient, in no acute distress. Well hydrated. Alert and oriented. CHEST: Normal insepection of the chest. RESP: Normal respiratory effort. Speaking full sentences. No cough. No audible wheezing. No retractions. Breath sounds are clear and equal bilaterally. No rhonchi, rales or wheezing CARDIO: No JVD. Regular rate and rhythm. No murmur SKIN: Normal. Dry. No rashes. NEURO: Alert and awake. Speech clear. PSYCH: Normal affect. Cooperative. Neck Neck: full ROM, lymphadenopathy noted, no lymphadenopathy noted, no midline deformity, torticollis and other (Left lateral neck muscle tenderness with palpation extending toward the lef) Back/Spine/Pelvis Cervical Spine: cervical ROM normal (Pain with rotation toward the left), cervical spasm, No cervical spinal tenderness and No step off deformity Extrem Left upper extremity: shoulder/upper arm (Limited range of motion with left shoulder abduction. No focal weaknes) and hand Details: normal to inspection, normal capillary refill, neuromotor exam normal and neurosensory exam normal; no tenderness, ROM of fingers abnormal and no swelling Course Vital Signs Vital signs: Vital Signs Temperature 36.4 C L 07/29/19 15:46 Pulse 80 07/29/19 15:46 Respiratory Rate 16 07/29/19 15:46 Blood Pressure 131/46 L 07/29/19 15:46 Pulse Oximetry 96 07/29/19 15:46 Temperature 36.4 C L 07/29/19 15:46 Temperature Source Skin 07/29/19 15:46 Pulse 80 07/29/19 15:46 Respiratory Rate 16 07/29/19 15:46 Respiratory Effort Non-Labored 07/29/19 15:46 Blood Pressure 131/46 L 07/29/19 15:46 Blood Pressure Position Sitting 07/29/19 15:46 Pulse Oximetry 96 07/29/19 15:46 Oxygen Delivery Method Room Air 07/29/19 15:46 Oxygen Flow Rate 0 07/29/19 15:46 Pain Level 6 07/29/19 15:46
== END 2019-07-29 16:35 | disposition home or self-care (01) ==
PROVIDERS: Emergency Provider Physician Assistant; PCP Nurse Practitioner Family
DX: M62.838 Other muscle spasm (principal); E11.9 Type 2 diabetes mellitus without complications
CPT/HCPCS: 99283

== ENCOUNTER 2019-08-31 10:44 | Outpatient (REF) | payer MEDICAID, SELFPAY ==
[2019-08-31 14:31] LABS: Magnesium 1.7 mg/dL (1.8-2.4); Vitamin B12 522 pg/mL (193-986)
== END 2019-08-31 11:04 ==
LOC: NCHCN 10:44
PROVIDERS: PCP Nurse Practitioner Family; Visit Provider Nurse Practitioner Family
DX: E11.9 Type 2 diabetes mellitus without complications (principal); K21.9 Gastro-esophageal reflux disease without esophagitis; G47.33 Obstructive sleep apnea (adult) (pediatric); R42 Dizziness and giddiness; K76.0 Fatty (change of) liver, not elsewhere classified; N39.3 Stress incontinence (female) (male); J06.9 Acute upper respiratory infection, unspecified; Z00.00 Encounter for general adult medical examination without abnormal findings
CPT/HCPCS: 82607; 83735

== ENCOUNTER 2019-09-20 21:30 | Emergency (ER) | payer MEDICAID, SELFPAY ==
[2019-09-20 21:32] VITALS: BP 130/48; PULSE 74; RESP 20; TEMP 36.4; O2SAT 98
[2019-09-20 21:35] VITALS: RESP 20
--- NOTE | 2019-09-20 21:52 | ED.GENADUL_ITS ---
Discharge Plan Disposition Patient Disposition: HOME Condition: Good Discharge Details Chief Complaint: GenMedical Clinical Impression: Viral illness Primary Care Provider: Deyanira Marcus ED Provider: Cesario Arevalo Home Meds and New Rx's Prescriptions: New metoclopramide HCl 10 mg tablet,disintegrating 10 mg PO Q6H PRN (Reason: nausea and vomiting) Qty: 10 RF: 0 Continued ranitidine HCl 150 mg capsule 150 mg PO DAILY RF: 0 docusate sodium 100 mg capsule 100 mg PO DAILY PRNRF: 0 multivitamin [Daily Multi-Vitamin] 1 EACH tablet 1 ea PO DAILY RF: 0 albuterol sulfate 90 mcg/actuation Hfa Aerosol Inhaler 2 puff INHALATION QID PRNRF: 0 divalproex [Depakote] 250 mg Tablet,Delayed Release (Dr/Ec) 250 mg PO BID RF: 0 pantoprazole 40 mg Tablet,Delayed Release (Dr/Ec) 40 mg PO DAILY RF: 0 loratadine 10 mg capsule 10 mg PO DAILY PRNRF: 0 promethazine 25 mg tablet 25 mg PO Q6H PRN (Reason: nausea and vomiting) Qty: 10 RF: 0 Discharge Instructions Instructions: Viral Syndrome (ED) Additional Instructions: This is likely viral illness. Should resolve over the next week or so. It will be important to get rest and stay hydrated. You may use the metoclopramide for nausea and vomiting but do not take your other antiemetic as I am not sure what it is or whether there could be cross reaction. Use acetaminophen or ibuprofen for discomfort and fever. Follow-up with primary care next week if not better. Return to ED for abdominal pain, persistent vomiting, difficulty breathing, mental status changes, other concerns or problems. Referrals: Deyanira Marcus [Primary Care Provider] - Medical Decision Making Patient presenting with what is likely viral syndrome. She does not appear toxic. She has normal vital signs. Headache is not as severe as her migraines. If anything nausea and vomiting is her biggest issue. Her abdomen is benign. Nursing had sent flu swab but I do not think this is necessarily influenza. Will give oral Reglan and Tylenol while waiting for this to return. Patient continues to look well, texting on her phone. We discussed medications as her med list says promethazine. Unclear what she is taking. She reports having something for nausea and vomiting as well as migraines at home but does not know the names of them. Flu swab was negative as expected. She reports that she has taken the medication for nausea and vomiting but it has not helped. Will provide prescription for Reglan for the next day or 2 with caution to not use with her other medications since I do not know what it is. Tylenol or ibuprofen for discomfort or fever. Follow-up with primary care next week if not doing better. Return to ED for worsening pain, abdominal pain, persistent vomiting, difficulty breathing, mental status changes, other concerns. HPI General Mode of arrival: ambulatory . Date/Time Provider Initiated Documentation: 09/20/19 21:45 . Limitations to Documentation: no limitations . Information obtained by: patient and RN notes reviewed . HPI Narrative: Patient presents to ED with complaints of generalized body aches, headache, fatigue as well as associated nausea and vomiting for the last couple of days. She has had shaking chills but does not know whether she has had fever or not. She reports headache not being as severe as a migraine which she has history of. She has more head fullness and sinus congestion than anything else. She denies runny nose, cough, earache, sore throat. She has no abdominal pain. She reports vomiting 10-15 times over the last few days. She does not really feel short of breath. She has generalized pain as well as bone pain and achiness. Related Data Home Medications Medication Instructions Recorded Confirmed multivitamin [Daily Multi-Vitamin] 1 ea PO DAILY 12/19/17 09/20/19 albuterol sulfate 2 puff INHALATION QID PRN 10/28/18 09/20/19 loratadine 10 mg PO DAILY PRN 12/18/18 09/20/19 promethazine 25 mg PO Q6H PRN #10 tab 03/09/19 09/20/19 divalproex [Depakote] 250 mg PO BID 05/11/19 09/20/19 pantoprazole 40 mg PO DAILY 05/11/19 09/20/19 docusate sodium 100 mg capsule 100 mg PO DAILY PRN 08/30/19 09/20/19 ranitidine HCl 150 mg capsule 150 mg PO DAILY 08/30/19 09/20/19 metoclopramide HCl 10 mg PO Q6H PRN #10 tab 09/20/19 Previous Rx's Medication Instructions Recorded promethazine 25 mg PO Q6H PRN #10 tab 03/09/19 metoclopramide HCl 10 mg PO Q6H PRN #10 tab 09/20/19 Allergies Allergy/AdvReac Type Severity Reaction Status Date / Time amoxicillin Allergy Severe Unverified 09/20/19 21:34 artichoke Allergy Severe ANAPHYLAXIS Unverified 09/20/19 21:34 Penicillins Allergy Intermediate HIVES Unverified 09/20/19 21:34 sodium hypochlorite solution Allergy Intermediate HIVES/SOB Unverified 09/20/19 21:34 [sodium hypochlorite] General Stated Complaint: GenMedical MIKE: 3 Review of Systems Narrative: As documented in HPI otherwise negative as below. Const: unknown fever; positive chills, weakness Resp: no cough, SOB, pleuritic pain CV: no CP, diaphoresis, edema, syncope GI: no abdominal pain; positive nausea, vomiting Neuro: headache; no numbness, focal weakness, confusion PFSH Medical History Anxiety and depression Asthma Diabetes mellitus, type 2 Elevated lipids Migraine CHAPARRO (nonalcoholic steatohepatitis) (Acute) Obstructive sleep apnea syndrome Polycystic ovaries Surgical History anterior cruciate ligament reconstruction section twice Colonoscopy - MAC (11/26/16) EGD - MAC (11/26/16) Endoscopic Carpal Tunnel release (01/14/09) 09/16/2010 REPEAT ECTR RIGHT Ligation of fallopian tube Open Carpal Tunnel release (10/23/12) RIGHT SIDE, left 8.14.14 Vaginal hysterectomy Social History Smoking/Tobacco Use Status: Former Tobacco Use Alcohol Intake: never Drug use: Never Substance use type: does not use Household members: spouse and children Housing: other Details: trailer Current gender identity: female What is your relationship status?: Panel score (0-1 are the most socially isolated patients): 1 Seatbelt use: always Do you feel safe at home: Yes Do you feel safe in your relationship?: Yes Exam Narrative Exam Narrative: Vitals: Afebrile. Normal vitals and room air pulse ox. Const: Obese female in NAD texting on her phone. HEENT: NC/AT. Normal facial exam. TMs clear bilaterally. Oropharynx clear. Eyes: Normal conjunctiva and sclera. Neck: Supple. Trachea midline. Lungs: Normal respiratory effort. Lungs are clear. Cor: RRR without murmur/gallop. Good radial pulses. GI: Soft. NT/ND. No guarding or rebound. Neuro: A+O x 3. Normal speech, mentation, gait. Cranial nerves II - XII grossly intact. No gross motor or sensory deficit. Ext: No C/C/E. Skin: Warm and dry without rash. Course Vital Signs Vital signs: Vital Signs Temperature 97.5 F L 09/20/19 21:32 Pulse 74 09/20/19 21:32 Respiratory Rate 20 09/20/19 21:32 Blood Pressure 130/48 L 09/20/19 21:32 Pulse Oximetry 98 09/20/19 21:32 Temperature 97.5 F L 09/20/19 21:32 Temperature Source Temporal Artery Scan 09/20/19 21:32 Pulse 74 09/20/19 21:32 Respiratory Rate 20 09/20/19 21:35 Respiratory Effort Non-Labored 09/20/19 21:35 Respiratory Depth Normal 09/20/19 21:35 Respiratory Pattern Normal 09/20/19 21:35 Blood Pressure 130/48 L 09/20/19 21:32 Blood Pressure Position Sitting 09/20/19 21:32 Pulse Oximetry 98 09/20/19 21:32 Oxygen Delivery Method Hi Flow Nasal Cannula 09/20/19 21:32 Oxygen Flow Rate 0 09/20/19 21:32 Pain Level 6 09/20/19 21:32 Lab/Test Results Lab/Test Results: 09/20/19 21:44 Nasopharynx Influenza Types A,B Antigen - Pending
[2019-09-20] MEDS: Acetaminophen 500 MG TAB 1000 MG PO (22:00)
[2019-09-20] MEDS: Metoclopramide 10 MG TAB PO (22:00)
== END 2019-09-20 22:20 | disposition home or self-care (01) ==
PROVIDERS: Emergency Provider Emergency Medicine; PCP Nurse Practitioner Family
DX: B34.9 Viral infection, unspecified (principal); E11.8 Type 2 diabetes mellitus with unspecified complications
CPT/HCPCS: 87449; 99283

== ENCOUNTER 2019-09-28 10:33 | Outpatient (REF) | payer MEDICAID, SELFPAY ==
[2019-09-28 12:34] LABS: Anion Gap 7.9 mmol/L (3-11); BUN 10 mg/dL (7-18); CO2 29.1 mmol/L (21.0-32.0); CREATININE 0.78 mg/dL (0.55-1.02); Calcium 9.2 mg/dL (8.5-10.1); Chloride 104 mmol/L (98-107); Glucose 111 mg/dL (74-106); Potassium 4.3 mmol/L (3.5-5.1); Sodium 141 mmol/L (136-145)
== END 2019-09-28 10:53 ==
LOC: NCHCN 10:33
PROVIDERS: PCP Nurse Practitioner Family; Visit Provider Nurse Practitioner Family
DX: I10 Essential (primary) hypertension (principal); E11.9 Type 2 diabetes mellitus without complications
CPT/HCPCS: 80048

== ENCOUNTER 2019-10-02 08:45 | Day surgery (SDC) | payer MEDICAID, SELFPAY ==
[2019-10-02] VITALS (7 sets, daily range): BP systolic 130–159; BP diastolic 35–110; PULSE 70–96; RESP 13–21; TEMP 36.1–36.6; O2SAT 97–100
[2019-10-02] MEDS: Lactated Ringers 1,000 ML 80 ML IV (09:43)
--- NOTE | 2019-10-02 10:24 | W.PM.DSUDISC ---
Discharge Plan Disposition Patient Disposition: HOME Condition: Good Discharge Details Reason For Visit: Ulnar Nerve Decompression/Transposition Attending Provider: Guy Becerra Primary Care Provider: Deyanira Marcus Home Meds and New Rx's Prescriptions: New hydrocodone-acetaminophen 5-325 mg tablet 1 tab PO Q6H PRN (Reason: pain) Qty: 14 RF: 0 ibuprofen 600 mg tablet 600 mg PO TID PRNQty: 30 RF: 0 acetaminophen 500 mg capsule 500 mg PO Q4H PRN (Reason: pain) Qty: 30 RF: 0 Continued ranitidine HCl 150 mg capsule 150 mg PO HS RF: 0 docusate sodium 100 mg capsule 100 mg PO DAILY PRNRF: 0 multivitamin [Daily Multi-Vitamin] 1 EACH tablet 1 ea PO DAILY RF: 0 albuterol sulfate 90 mcg/actuation Hfa Aerosol Inhaler 2 puff INHALATION QID PRNRF: 0 divalproex [Depakote] 250 mg Tablet,Delayed Release (Dr/Ec) 250 mg PO BID RF: 0 pantoprazole 40 mg Tablet,Delayed Release (Dr/Ec) 40 mg PO DAILY RF: 0 loratadine 10 mg capsule 10 mg PO DAILY PRNRF: 0 promethazine 25 mg tablet 25 mg PO Q6H PRN (Reason: nausea and vomiting) Qty: 10 RF: 0 metoclopramide HCl 10 mg tablet,disintegrating 10 mg PO Q6H PRN (Reason: nausea and vomiting) Qty: 10 RF: 0 Discharge Instructions Additional Instructions: Cubital Tunnel Decompression Discharge Instructions Activity: You should stay in the sling for the first 2 weeks. You may come out of the sling for gentle motion and hygiene but should largely remain in the sling to allow the incision site to heal. Gentle motion of the elbow, hand, wrist, and fingers is okay and encouraged after the first few days, but no repetitive activites nor heavy lifting. You may apply ice. Medications: - You should take Tylenol and Ibuprofen around the clock. - You have been prescribed Hydrocodone for breakthrough pain. Dressings: - The initial surgical dressing should stay in place for 3 days. It may then be removed and kept clean and dry. You should cover with a light gauze dressing. - You may shower after 3 days and get the wound wet. Follow-up: 10 days Referrals: Guy Becerra MD [ [facility] STAFF PHYSICIAN] - Equipment/Supplies: Sling Activity:: Elevate Remove Dressings/Wound Care:: 72 hours Shower/Bathe:: 72 hours Diet:: As Tolerated DS: Diagnosis Discharge Diagnosis (1) Cubital tunnel syndrome on left: Status: Acute
[2019-10-02] MEDS: ceFAZolin 2 GM/50 ML BAG IVPB (11:03)
--- NOTE | 2019-10-03 10:59 | ROE_ITS ---
Date of service: 10/02/19 Time of Service: 13:59 Operative Note Operative Note DATE OF PROCEDURE: 10/02/19 PRE-OP DIAGNOSIS: Recurrent left cubital Tunnel Syndrome POST-OP DIAGNOSIS: same PROCEDURE: Left cubital Tunnel Decompression with extensive neurolysis and anterior transposition SURGEON: Guy Becerra ROLLER STAINER: Desirae Mishra ANESTHESIA: GETA ESTIMATED BLOOD LOSS: 0 PATHOLOGY: none sent TOURNIQUET TIME: 62 COMPLICATIONS: None Patient was transported to: PACU Patient's condition: stable Indications: Dawn is a 39-year-old female who has had symptoms of cubital tunnel syndrome. She has been previously diagnosed and is undergone 2 separate procedures. The first procedure was a decompression in situ. Second procedure was for transposition of the ulnar nerve due to subluxating ulnar nerve symptoms. After this procedure she had improvement. However, over the last months to year she has had worsening symptoms. This is progressed such that she has motor restriction as well as persistent numbness. Repeat nerve conduction studies were performed that demonstrated compression of the ulnar nerve at the l evel of the elbow. Nonoperative treatment options had been trialed. Given these findings and failure of nonoperative treatments and persistent symptoms, I offered operative intervention. I reviewed the technical details of a cubital tunnel decompression with possible anterior subcutaneous transposition. I reviewed the risk of the procedure to include bleeding, infection, pain, stiffness, tendon instability, damage to the superficial radial nerve, and complete release. Despite these risks, the patient elected to proceed. Findings: The ulnar nerve was notably scarred in. There is a thick casing around almost the entirety of the nerve. It was difficult to separate the nerve from any of the surrounding soft tissues. Starting proximally I was able to identify the nerve and worked distally. However, was very tedious to free the nerve up. There is a notable spot where the nerve was kinked just proximal to the medial condyle, approximately 3 cm. There is also some scarring at the level of the FCU muscle belly. The nerve was anterior but was stuck in scar tissue. The nerve was released completely with an extensive neuro lysis. It was kept anteriorly and a large piece of fascia combined with a piece of subcutaneous fat was used to create a sling. Procedure Description: Dawn was greeted in the preoperative holding area. Name and surgical site were confirmed. The history and physical was completed. The consent was reviewed the patient and signed. Dawn was taken back to the operating room. The patient was placed in the supine positioned and a general anesthetic was administered. The left was then prepped with ChloraPrep and draped in a standard fashion after a nonsterile tourniquet was placed high up into the axilla of the arm. Prophylactic antibiotics in the form of cefazolin were administered. A timeout was performed for safe surgery. The surgical site was drawn on the skin as was the lateral epicondyle borders. The planned surgical field was anesthetized with 0.25% bupivacaine with epinephrine. The limb was exsanguinated and the tourniquet was inflated where it stayed for 62. A 12 cm incision was made curvilinearly around the medial elbow using the previous incision. The skin was incised only. The deep tissue and subcutaneous fat was dissected with a tenotomy scissors trying to protect any branches of the medial antebrachial cutaneous nerve. Any branches that were identified were retracted out of the way. There is notable scarring throughout the entire medial elbow from the skin all the way down towards the medial epicondyle. The ulnar nerve was palpated and identified but it was unable to be visualized due to the amount of scarring. There was a dense casing around the nerve. Starting proximally, I was able to identify the nerve and incised the sheath. Careful dissection was made along the nerve. It was very challenging to separate the soft tissue from the nerve itself. An extensive neural lysis was performed working proximal to distal. About 3 centers proximal to the medial epicondyle there was a notable point of compression of the ulnar nerve. This kink occurred as the ulnar nerve was moving anteriorly and it was scarred into the medial aspect of the triceps musculature. It was very difficult to release from this point of compression but once it was freed up there was notable difference in the size of the ulnar nerve, appearance of compression. The nerve was resting anteriorly. However, this sling which was previously created was removed in order to fully dissect the nerve. I was unable to run a free or any other instrument across the nerve anteriorly. The nerve was stuck to scar tissue in the front of the elbow. The nerve was continue to be followed distally. An extensive neuro lysis was performed. The first motor branch was very difficult to appreciate. There is notable scarring and time was taken to debride the nerve more fully. There is scar attached to the nerve at every point. An extensive fascial release was performed into the FCU muscle belly. The muscle was sharply and bluntly dissected off of the nerve. Once this was completed a Tony drain was able to place behind the nerve and the nerve is freely to move and sit anteriorly. There is no points of compression. The nerve was quite loose without any tight points. Some of of the flexor carpi ulnaris muscle was resected to allow smooth transition distally. Any other short remaining portions of the medial intermuscular septum were also removed. I then raised a large flap from the flexor pronator mass. This fascial flap was based medially. Given the fat in the area I also raised a fat flap which involves some the Torito's fascia but did leave fat still attached to the skin. This was brought down in this fat flap was then sewed to the fascial flap. This provided a buttress to medial subluxation of the nerve. I was able to place a finger behind this flap without difficulty and the nerve was still resting free. The tourniquet was then deflated. Any areas of bleeding were cauterized with bipolar electrocautery. The wound was thoroughly irrigated. The deep tissue was closed with a 3-0 Vicryl. The skin was closed with a 4-0 nylon. The wound was dressed with Xeroform, 4 x 4's, ABD, Kerlix and an Jatin wrap. Dawn was placed into a sling. Dawn was transferred back to the PACU in a stable condition.
== END 2019-10-02 13:05 | disposition home or self-care (01) ==
PROVIDERS: PCP Nurse Practitioner Family; Visit Provider Student in an Organized Health Care Education/Training Program
PROC: (CPT 64718; principal; 2019-10-02 12:45)
PROC: (CPT 64718; 2019-10-02 12:45)
DX: G56.22 Lesion of ulnar nerve, left upper limb (principal); E11.9 Type 2 diabetes mellitus without complications; G47.33 Obstructive sleep apnea (adult) (pediatric)
CPT/HCPCS: 64718; J0690; J1100; J1885; J2405; J2704; L3650

== ENCOUNTER 2019-10-08 17:50 | Outpatient (REF) | payer MEDICAID, SELFPAY | END 2019-10-08 18:10 | LOC: NCHCN 17:50 | PROVIDERS: PCP Nurse Practitioner Family; Visit Provider Nurse Practitioner Family | DX: N76.0 Acute vaginitis (principal); Z11.3 Encounter for screening for infections with a predominantly sexual mode of transmission | CPT/HCPCS: 87491; 87591; 87480; 87510; 87660 ==

== ENCOUNTER 2019-10-21 17:23 | Emergency (ER) | payer MEDICAID, SELFPAY ==
[2019-10-21 17:28] VITALS: BP 147/82; PULSE 93; RESP 16; TEMP 36.3; O2SAT 97
--- NOTE | 2019-10-21 17:30 | DI.RAD_ITS ---
EXAM: XR PORTABLE CHEST AP XR PORTABLE CHEST AP CLINICAL HISTORY: fever, cough. fever, cough TECHNIQUE: 2D digital imaging was performed. COMPARISON: XR RIBS RT W PA LAT CHEST from 05/26/2019 FINDINGS: LUNGS: Clear. No pleural abnormality seen. HEART: Normal. MEDIASTINUM: Normal. OTHER FINDINGS: None. IMPRESSION: No acute pulmonary findings. DATA REPOSITORY: RADIATION DOSE DELIVERED:
--- NOTE | 2019-10-21 17:45 | ED.GENADUL_ITS ---
Discharge Plan Disposition Patient Disposition: HOME Condition: Good Discharge Details Chief Complaint: RespSymp Clinical Impression: Acute viral syndrome Primary Care Provider: Deyanira Marcus ED Provider: Oumar Wong Home Meds and New Rx's Prescriptions: New guaifenesin [Mucinex] 600 mg tablet extended release 12hr 600 mg PO Q12H PRNQty: 10 RF: 0 benzonatate [Tessalon Perles] 100 mg capsule 100 mg PO BID PRN (Reason: cough) Qty: 14 RF: 0 Continued ranitidine HCl 150 mg capsule 150 mg PO HS RF: 0 docusate sodium 100 mg capsule 100 mg PO DAILY PRNRF: 0 lisinopril 10 mg tablet 10 mg PO DAILY RF: 0 multivitamin [Daily Multi-Vitamin] 1 EACH tablet 1 ea PO DAILY RF: 0 albuterol sulfate 90 mcg/actuation Hfa Aerosol Inhaler 2 puff INHALATION QID PRNRF: 0 divalproex [Depakote] 250 mg Tablet,Delayed Release (Dr/Ec) 250 mg PO BID RF: 0 pantoprazole 40 mg Tablet,Delayed Release (Dr/Ec) 40 mg PO DAILY RF: 0 loratadine 10 mg capsule 10 mg PO DAILY PRNRF: 0 promethazine 25 mg tablet 25 mg PO Q6H PRN (Reason: nausea and vomiting) Qty: 10 RF: 0 hydrocodone-acetaminophen 5-325 mg tablet 1 tab PO Q6H PRN (Reason: pain) Qty: 14 RF: 0 ibuprofen 600 mg tablet 600 mg PO TID PRNQty: 30 RF: 0 acetaminophen 500 mg capsule 500 mg PO Q4H PRN (Reason: pain) Qty: 30 RF: 0 metoclopramide HCl 10 mg tablet,disintegrating 10 mg PO Q6H PRN (Reason: nausea and vomiting) Qty: 10 RF: 0 Discharge Instructions Instructions: Viral Syndrome (ED) Additional Instructions: Your influenza screen today was negative. Your chest x-ray does not show evidence of pneumonia. As we discussed your Covid19 test is pending and you should self quarantine until the results are finalized. This currently it may take up to a week. The result will be faxed to the emergency department and we will call you with the results. You should maintain self quarantine with 6 feet of distance between others, wear a mask when in the company of others, wash hands frequently and wear gloves if needed. Return to the emergency department if you develop shortness of breath, chest pain, or any other acute concerns. Medical Decision Making 39-year-old female presents from home with day 6 of upper respiratory illness including fever, cough, chills, sore throat. She states to be taking care of her father who has influenza. She has not traveled outside of the [facility] and has no known other sick contacts. The patient is afebrile with a pulse of 93, blood pressure 147/82. She is oxygenating 97% on room air. Her exam is reassuring but does note left base kamran nt rhonchi. Differential diagnosis includes viral syndrome, influenza, with rising cases of coronavirus would also consider Covid 19. Patient sent for chest x-ray, influenza screen and Covid 19 testing. She is given a fluid bolus. CXR -no acute findings. Influenza test negative. Covid 19 is pending and she will self quarantine pending final results. Patient is stable, no significant abnormalities at this time and she understands outpatient plan of care. HPI General Mode of arrival: ambulatory . Date/Time Provider Initiated Documentation: 10/21/19 17:24 . Limitations to Documentation: no limitations . Information obtained by: patient . History of Present Illness 39 year old F presents to the emergency department with the chief complaint of Day 6 of upper respiratory illness with cough, fever, sore throat, described as moderate, Quality is described as dull, and is localized to the mouth. Patient reports no radiation. Patient started experiencing this hour(s) and it has been constant. No relieving factors improve symptom(s), No exacerbating factors reported . Patient notes cough, fever/chills and loss of appetite. Patient did receive the following treatments prior to arrival, other (Acetaminophen) Related Data Home Medications Medication Instructions Recorded Confirmed multivitamin [Daily Multi-Vitamin] 1 ea PO DAILY 12/19/17 10/21/19 albuterol sulfate 2 puff INHALATION QID PRN 10/28/18 10/21/19 loratadine 10 mg PO DAILY PRN 12/18/18 10/21/19 promethazine 25 mg PO Q6H PRN #10 tab 03/09/19 10/21/19 divalproex [Depakote] 250 mg PO BID 05/11/19 10/21/19 pantoprazole 40 mg PO DAILY 05/11/19 10/21/19 docusate sodium 100 mg capsule 100 mg PO DAILY PRN 08/30/19 10/21/19 ranitidine HCl 150 mg capsule 150 mg PO HS 08/30/19 10/21/19 metoclopramide HCl 10 mg PO Q6H PRN #10 tab 09/20/19 10/21/19 acetaminophen 500 mg PO Q4H PRN #30 cap 10/02/19 10/21/19 hydrocodone-acetaminophen 1 tab PO Q6H PRN #14 tab 10/02/19 10/21/19 ibuprofen 600 mg PO TID PRN #30 tab 10/02/19 10/21/19 lisinopril 10 mg tablet 10 mg PO DAILY 10/12/19 10/21/19 benzonatate [Tessalon Perles] 100 mg PO BID PRN #14 cap 10/21/19 guaifenesin [Mucinex] 600 mg PO Q12H PRN #10 tab 10/21/19 Previous Rx's Medication Instructions Recorded promethazine 25 mg PO Q6H PRN #10 tab 03/09/19 metoclopramide HCl 10 mg PO Q6H PRN #10 tab 09/20/19 acetaminophen 500 mg PO Q4H PRN #30 cap 10/02/19 hydrocodone-acetaminophen 1 tab PO Q6H PRN #14 tab 10/02/19 ibuprofen 600 mg PO TID PRN #30 tab 10/02/19 benzonatate [Tessalon Perles] 100 mg PO BID PRN #14 cap 10/21/19 guaifenesin [Mucinex] 600 mg PO Q12H PRN #10 tab 10/21/19 Allergies Allergy/AdvReac Type Severity Reaction Status Date / Time amoxicillin Allergy Severe Unverified 10/21/19 17:31 artichoke Allergy Severe ANAPHYLAXIS Unverified 10/21/19 17:31 Penicillins Allergy Intermediate HIVES Unverified 10/21/19 17:31 sodium hypochlorite solution Allergy Intermediate HIVES/SOB Unverified 10/21/19 17:31 [sodium hypochlorite] General Stated Complaint: RespSymp MIKE: 3 Review of Systems Narrative: 6 systems reviewed and otherwise negative [facility] Medical History Anxiety and depression Asthma Diabetes mellitus, type 2 Elevated lipids Migraine CHAPARRO (nonalcoholic steatohepatitis) (Acute) Obstructive sleep apnea syndrome Polycystic ovaries Social History Smoking/Tobacco Use Status: Former Tobacco Use Alcohol Intake: never Drug use: Never Substance use type: does not use Household members: spouse and children Housing: other Details: trailer Current gender identity: female What is your relationship status?: Panel score (0-1 are the most socially isolated patients): 1 Seatbelt use: always Do you feel safe at home: Yes Do you feel safe in your relationship?: Yes Exam Narrative Exam Narrative: GEN: awake, alert, oriented 3. Pleasant, well groomed, interactive. HEAD: Normocephalic, atraumatic ENT: Mucous membranes moist, oropharynx unremarkable, External ear exam unremarkable EYES: PERRL, EOMI NECK: Full ROM, no CARLI, no menigismus CHEST/RESP: Nontender, clear to auscultation bilateral, question faint rhonchi left base CARDIOVASCULAR: RRR, no murmur, rub melissa. 2+ Rad pulse bilateral ABDOMEN: Soft, nontender, no mass. +Bowel sounds EXT: Full ROM, no edema, no rash Neuro: Grossly normal neurologic exam, conversant, interactive. Psych: Speech fluent, thoughts congruent, affect normal Course Vital Signs Vital signs: Vital Signs Temperature 36.3 C L 10/21/19 17:28 Pulse 93 H 10/21/19 17:28 Respiratory Rate 16 10/21/19 17:28 Blood Pressure 147/82 H 10/21/19 17:28 Pulse Oximetry 97 10/21/19 17:28 Temperature 36.3 C L 10/21/19 17:28 Temperature Source Skin 10/21/19 17:28 Pulse 93 H 10/21/19 17:28 Respiratory Rate 16 10/21/19 17:28 Respiratory Effort Non-Labored 10/21/19 17:40 Blood Pressure 147/82 H 10/21/19 17:28 Blood Pressure Position Sitting 10/21/19 17:28 Pulse Oximetry 97 10/21/19 17:28 Oxygen Delivery Method Room Air 10/21/19 17:28 Oxygen Flow Rate 0 10/21/19 17:28 Pain Level 6 10/21/19 17:28
[2019-10-21] MEDS: Normal Saline 1,000 ML 1000 ML IV (17:47)
--- NOTE | 2019-10-21 18:31 | DI.VRAD_ITS ---
PROCEDURE INFORMATION: Exam: XR Chest, 1 View Exam date and time: 10/21/2019 6:07 PM Age: 39 years old Clinical indication: Other: Cough, fever x6 days TECHNIQUE: Imaging protocol: XR of the chest Views: 1 view. COMPARISON: CR XR RIBS RT W PA LAT CHEST 05/26/2019 8:24 PM FINDINGS: Lungs: There are low lung volumes. No consolidation. Pleural space: No pleural effusion. No pneumothorax. Heart/Mediastinum: Unremarkable. No cardiomegaly. Bones/joints: Unremarkable. IMPRESSION: Stable appearance of the chest. No acute abnormality identified Dictated and Authenticated by: Branden Jimenez MD. Ordering:SHAHNAZ Oseguera MD
[2019-10-21 18:44] VITALS: BP 140/72; PULSE 88; RESP 16; TEMP 36.8; O2SAT 97
[2019-10-24 16:57] LABS: COVID-19 RT-PCR Result Undetected (Undetected)
== END 2019-10-21 19:00 | disposition home or self-care (01) ==
PROVIDERS: Emergency Provider Emergency Medicine; PCP Nurse Practitioner Family
DX: J02.8 Acute pharyngitis due to other specified organisms (principal); R05 Cough; R50.9 Fever, unspecified; B34.9 Viral infection, unspecified; E11.9 Type 2 diabetes mellitus without complications; Z87.891 Personal history of nicotine dependence
CPT/HCPCS: 36415; 87449; 96360; 99284; U0003; 71045

== ENCOUNTER 2019-11-28 03:51 | Outpatient (CLI) | payer MEDICAID, SELFPAY ==
[2019-11-28 14:44] LABS: Anion Gap 8.2 mmol/L (3-11); BUN 15 mg/dL (7-18); CO2 29.8 mmol/L (21.0-32.0); CREATININE 0.81 mg/dL (0.55-1.02); Calcium 9.5 mg/dL (8.5-10.1); Chloride 101 mmol/L (98-107); Glucose 134 mg/dL (74-106); Magnesium 1.6 mg/dL (1.8-2.4); Potassium 4.6 mmol/L (3.5-5.1); Sodium 139 mmol/L (136-145)
== END 2019-11-28 04:11 ==
PROVIDERS: PCP Nurse Practitioner Family; Visit Provider Nurse Practitioner Family
DX: I10 Essential (primary) hypertension (principal); E83.42 Hypomagnesemia
CPT/HCPCS: 36415; 80048; 83735

== ENCOUNTER 2020-02-05 14:13 | Outpatient (REF) | payer MEDICAID, SELFPAY ==
[2020-02-05 22:08] LABS: ALT 65 U/L (14-59); AST 30 U/L (15-37); Albumin 3.6 g/dL (3.4-5.0); Alkaline Phosphatase 81 U/L (46-116); Anion Gap 10.1 mmol/L (3-11); BUN 11 mg/dL (7-18); Bilirubin, Total 0.4 mg/dL (0.2-1.0); CO2 26.9 mmol/L (21.0-32.0); CREATININE 0.77 mg/dL (0.55-1.02); Calcium 9.3 mg/dL (8.5-10.1); Chloride 103 mmol/L (98-107); Glucose 242 mg/dL (74-106); Potassium 3.9 mmol/L (3.5-5.1); Sodium 140 mmol/L (136-145); Total Protein 7.3 g/dL (6.4-8.2)
[2020-02-05 22:12] LABS: VALPROIC ACID < 3 ug/mL (50-100)
== END 2020-02-05 14:33 ==
LOC: NCHCN 14:13
PROVIDERS: PCP Nurse Practitioner Family; Visit Provider Physician Assistant
DX: K52.9 Noninfective gastroenteritis and colitis, unspecified (principal); Z51.81 Encounter for therapeutic drug level monitoring
CPT/HCPCS: 80053; 80164

== ENCOUNTER 2020-02-07 21:06 | Emergency (ER) | payer MEDICAID, SELFPAY ==
[2020-02-07 21:11] VITALS: BP 103/39; PULSE 103; RESP 16; TEMP 36.7; O2SAT 97
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
[2020-02-07] MEDS: Ibuprofen 600 MG TAB PO (21:28)
--- NOTE | 2020-02-07 21:45 | DI.RAD_ITS ---
EXAM: XR HIP LT COMPLETE AP PELVIS INDICATION: Fall R/O fracture. COMPARISON: US PELVIS TRANSVAG from 09/13/2017 TECHNIQUE: 2D digital imaging was performed. FINDINGS: No fracture or dislocation is seen. The SI joints and pubic symphysis are unremarkable. Hardware i s noted in the lower lumbar spine. IMPRESSION: No acute abnormality. DATA REPOSITORY: RADIATION DOSE DELIVERED:
--- NOTE | 2020-02-07 21:51 | DI.RAD_ITS ---
EXAM: XR KNEE LT 3V AP,LAT,TAHIR CLINICAL HISTORY: Fall R/O fx. TECHNIQUE: 2D digital imaging was performed. COMPARISON: CR LEFT KNEE 3 VIEW COMPLETE from 04/22/2010 FINDINGS: BONES: No acute fracture is present. No bony destructive lesion is seen. JOINTS: The knee is normally aligned. No joint effusion is seen. SOFT TISSUE: Normal. IMPRESSION: Normal radiographs of the left knee. DATA REPOSITORY: RADIATION DOSE DELIVERED:
--- NOTE | 2020-02-07 22:01 | DI.VRAD_ITS ---
PROCEDURE INFORMATION: Exam: XR Left Hip with Pelvis when Performed Exam date and time: 02/07/2020 9:37 PM Age: 39 years old Clinical indication: Injury or trauma; Fall; Initial encounter; Blunt trauma (contusions or hematomas); Left; Hip; Injury date: 02/07/20; Prior surgery; Surgery date: 6+ months; Surgery type: Lower back TECHNIQUE: Imaging protocol: XR Left hip with pelvis when performed. Views: 2 or 3 views. COMPARISON: CT ABDOMEN PELVIS W 12/18/2018 9:40 PM FINDINGS: Bones/joints: There has been discectomy and laminectomy at L5. Transpedicular screws and supporting rods are seen at L5-S1 for posterior fusion. At the pelvis and left hip, the alignment of the joints is anatomic and the joint spaces are maintained. There is no evidence of acute fracture. There is no evidence of a joint effusion. Soft tissues: No radiopaque foreign bodies are identified in the visualized soft tissues. IMPRESSION: 1. Normal radiographic appearance of the left hip. 2. Postoperative changes L5-S1 as described. Dictated and Authenticated by: Óscar Langston MD. Ordering:SHANNAN Aguilera MD
--- NOTE | 2020-02-07 22:05 | DI.VRAD_ITS ---
PROCEDURE INFORMATION: Exam: XR Left Knee Exam date and time: 02/07/2020 9:40 PM Age: 39 years old Clinical indication: Injury or trauma; Fall; Initial encounter; Blunt trauma; Knee; Left; Injury date: 02/07/20 TECHNIQUE: Imaging protocol: XR Left knee. Views: 3 views. COMPARISON: No relevant prior studies available. FINDINGS: Bones/joints: The alignment of the joints is anatomic and the joint spaces are maintained. There is no evidence of acute fracture. There is no evidence of a joint effusion. Soft tissues: Unremarkable. IMPRESSION: Normal appearing left knee. Dictated and Authenticated by: Óscar Langston MD. Ordering:SHANNAN Aguilera MD
== END 2020-02-07 23:10 | disposition home or self-care (01) ==
PROVIDERS: Emergency Provider Registered Nurse Emergency; PCP Nurse Practitioner Family
DX: S73.192A Other sprain of left hip, initial encounter (principal); S83.92XA Sprain of unspecified site of left knee, initial encounter; W16.112A Fall into natural body of water striking water surface causing other injury, initial encounter; Y93.11 Activity, swimming; E11.9 Type 2 diabetes mellitus without complications; I10 Essential (primary) hypertension
CPT/HCPCS: 73562; 99284; 73502; E0114

== ENCOUNTER 2020-04-28 06:47 | Emergency (ER) | payer MEDICAID, SELFPAY ==
[2020-04-28 06:56] VITALS: BP 126/42; PULSE 62; RESP 16; TEMP 36.3; O2SAT 98
--- NOTE | 2020-04-28 07:21 | DI.RAD_ITS ---
EXAM: XR PORTABLE CHEST AP CLINICAL HISTORY: cough for 2 weeks, r/o pneumonia TECHNIQUE: 2D digital imaging was performed. COMPARISON: CR,XR XR PORTABLE CHEST AP from 10/21/2019 FINDINGS: LUNGS: Clear. No pleural abnormality seen. HEART: Normal. MEDIASTINUM: Normal. OTHER FINDINGS: None. IMPRESSION: No acute pulmonary findings. DATA REPOSITORY: RADIATION DOSE DELIVERED:
--- NOTE | 2020-04-28 07:35 | W.ED.GENAD ---
Discharge Plan Disposition Patient Disposition: HOME Condition: Good Discharge Details Clinical Impression: URI (upper respiratory infection), Congestion of both ears, Post-nasal drip Primary Care Provider: Deyanira Marcus ED Provider: Adolfo Keller Home Meds and New Rx's Prescriptions: New loratadine 10 mg capsule 10 mg PO DAILY Qty: 20 RF: 0 benzonatate [Tessalon Perles] 100 mg capsule 100 mg PO BID PRNQty: 20 RF: 0 Continued docusate sodium 100 mg capsule 100 mg PO DAILY PRNRF: 0 lisinopril 10 mg tablet 10 mg PO DAILY RF: 0 meloxicam 15 mg tablet 15 mg PO DAILY Qty: 30 RF: 0 sumatriptan succinate 50 mg tablet See Rx Instructions PO .COMPLEX RF: 0 gabapentin 300 mg capsule 300 mg PO TID RF: 0 Women's 50 Plus Multivitamin 400 mcg-500 mg calcium-20 mcg tablet PO DAILY RF: 0 albuterol sulfate 90 mcg/actuation Hfa Aerosol Inhaler 2 puff INHALATION QID PRNRF: 0 divalproex [Depakote] 250 mg Tablet,Delayed Release (Dr/Ec) 250 mg PO BID RF: 0 pantoprazole 40 mg Tablet,Delayed Release (Dr/Ec) 40 mg PO DAILY RF: 0 loratadine 10 mg capsule 10 mg PO DAILY PRNRF: 0 promethazine 25 mg tablet 25 mg PO Q6H PRN (Reason: nausea and vomiting) Qty: 10 RF: 0 ibuprofen 600 mg tablet 600 mg PO TID PRNQty: 30 RF: 0 acetaminophen 500 mg capsule 500 mg PO Q4H PRN (Reason: pain) Qty: 30 RF: 0 metoclopramide HCl 10 mg tablet,disintegrating 10 mg PO Q6H PRN (Reason: nausea and vomiting) Qty: 10 RF: 0 Discharge Instructions Instructions: Upper Respiratory Infection (ED) Additional Instructions: At this time your chest x-ray is negative for any evidence of pneumonia. Your symptoms are likely from a mild virus that is causing congestion in your sinus area which causes the drip which is subsequently causing the throat. With no evidence of pneumonia, or an ear infection there is no indication for antibiotics at this time. Please take the loratadine as directed to help decrease the congestion in your nose. Please use the Tessalon Perles only as needed to decrease the cough or sleeping or work. Please use the Dionna pot as we discussed together to help in the management of your congestion. Please check your patient portal in the next 24 to 48 hours to look for the results of your coronavirus test. It would be good to self isolate until you have your results back. If you notice any worsening of your symptoms, or any new symptoms such as vomiting, diarrhea, fever, chills, shortness of breath, chest pain, numbness, weakness, or fainting , please return immediately to the emergency department for reevaluation. Please follow up with your primary care provider as soon as possible for reassessment and reevaluation. As always, it was a pleasure participating in your medical care today. Stand Alone Forms: Work Release Referrals: Deyanira Marcus [Primary Care Provider] - Medical Decision Making 39-year-old female with a past medical history of asthma, diabetes, hypertension, who presents today for 2 weeks of cough sore throat ear pain. Patient states that 2 weeks ago she had an initial episode of diarrhea and vomiting after that she has had a mild cough which is occasionally productive with green sputum. She is also had an associated sore throat for the last week, and mild ear congestion. She does admit to a slightly atypical metallic taste, but denies any loss of taste or overly salty taste. She denies any exposure knowingly to coronavirus. She does work at [employer]. She denies any other known sick contacts. She denies any tobacco abuse history. She denies any chest pain, chest tightness, bandlike sensation around the chest, arm neck or shoulder pain. No other complaints at this time. Denies PE risk factors such as recent long car rides, immobilization, recent surgery, prior history of DVT or PE, family history of PE or DVT, morbid obesity, exogenous estrogen and smoking, hemoptysis, history of cancer. Physical exam demonstrates notably clear lungs, no erythema in the posterior oropharynx, no fluid collection behind the ears. Vital signs are stable, O2 sat 98%. Chest x-ray read as negative. Influenza test negative. Signs and symptoms consistent with a viral upper respiratory infection, unlikely to be coronavirus however we are still pending test. No indication for antibiotics at this time with no evidence of otitis media or pneumonia. Will recommend loratadine, Donnellson pot. Patient has no change in her cough with the breathing treatments, no indication for steroids or continue duo nebs at home. Discussed red flags which to return. I have extensively reviewed the treatment plan and discharge instructions with the patient. I have addressed all patient concerns at this time. The patient was made aware of what symptoms to monitor for that would warrant a return to the emergency department. Discussed the plan with the patient, they demonstrate verbal understanding and agreement with our assessment and plan at this time. FINDINGS: Lungs: Unremarkable. No consolidation. Pleural space: Unremarkable. No pleural effusion. No pneumothorax. Heart/Mediastinum: Unremarkable. No cardiomegaly. Bones/joints: Unremarkable. IMPRESSION: No acute findings. Thank you for allowing us to participate in the care of your patient. Dictated and Authenticated by: Grant Stephens MD 04/28/2020 7:39 AM Eastern Time ([place] & [place]) HPI General Date/Time Provider Initiated Documentation: 04/28/20 06:49. HPI Narrative: 39-year-old female with a past medical history of asthma, diabetes, hypertension, who presents today for 2 weeks of cough sore throat ear pain. Patient states that 2 weeks ago she had an initial episode of diarrhea and vomiting after that she has had a mild cough which is occasionally productive with green sputum. She is also had an associated sore throat for the last week, and mild ear congestion. She does admit to a slightly atypical metallic taste, but denies any loss of taste or overly salty taste. She denies any exposure knowingly to coronavirus. She does work at [employer]. She denies any other known sick contacts. She denies any tobacco abuse history. She denies any chest pain, chest tightness, bandlike sensation around the chest, arm neck or shoulder pain. No other complaints at this time. Denies PE risk factors such as recent long car rides, immobilization, recent surgery, prior history of DVT or PE, family history of PE or DVT, morbid obesity, exogenous estrogen and smoking, hemoptysis, history of cancer. Related Data Home Medications Medication Instructions Recorded Confirmed albuterol sulfate 2 puff INHALATION QID PRN 10/28/18 04/28/20 loratadine 10 mg PO DAILY PRN 12/18/18 04/28/20 promethazine 25 mg PO Q6H PRN #10 tab 03/09/19 04/28/20 divalproex [Depakote] 250 mg PO BID 05/11/19 04/28/20 pantoprazole 40 mg PO DAILY 05/11/19 04/28/20 docusate sodium 100 mg capsule 100 mg PO DAILY PRN 08/30/19 04/28/20 metoclopramide HCl 10 mg PO Q6H PRN #10 tab 09/20/19 04/28/20 acetaminophen 500 mg PO Q4H PRN #30 cap 10/02/19 04/28/20 ibuprofen 600 mg PO TID PRN #30 tab 10/02/19 04/28/20 lisinopril 10 mg tablet 10 mg PO DAILY 10/12/19 04/28/20 gabapentin 300 mg capsule 300 mg PO TID 11/27/19 04/28/20 iylcvluy-snj-lscsm ac 400 tab PO DAILY tab 11/27/19 03/21/20 mcg-calcium carb 500 mg-vit K1 20 mcg tablet sumatriptan succinate 50 mg tablet See Rx Instructions PO .COMPLEX 11/27/19 04/28/20 meloxicam 15 mg tablet 15 mg PO DAILY #30 tab 03/21/20 04/28/20 benzonatate [Tessalon Perles] 100 mg PO BID PRN #20 cap 04/28/20 loratadine 10 mg PO DAILY #20 cap 04/28/20 Previous Rx's Medication Instructions Recorded promethazine 25 mg PO Q6H PRN #10 tab 03/09/19 metoclopramide HCl 10 mg PO Q6H PRN #10 tab 09/20/19 acetaminophen 500 mg PO Q4H PRN #30 cap 10/02/19 ibuprofen 600 mg PO TID PRN #30 tab 10/02/19 meloxicam 15 mg tablet 15 mg PO DAILY #30 tab 03/21/20 benzonatate [Tessalon Perles] 100 mg PO BID PRN #20 cap 04/28/20 loratadine 10 mg PO DAILY #20 cap 04/28/20 Allergies Allergy/AdvReac Type Severity Reaction Status Date / Time amoxicillin Allergy Severe Unverified 04/28/20 07:04 artichoke Allergy Severe ANAPHYLAXIS Unverified 04/28/20 07:04 Penicillins Allergy Intermediate HIVES Unverified 04/28/20 07:04 sodium hypochlorite solution Allergy Intermediate HIVES/SOB Unverified 04/28/20 07:04 [sodium hypochlorite] General Stated Complaint: RespSymp MIKE: 3 Review of Systems All systems reviewed & are unremarkable except as noted in HPI and below PFSH Medical History (Updated 04/28/20 @ 07:51 by Adolfo Keller DO) Anxiety and depression Asthma Diabetes mellitus, type 2 Elevated lipids Migraine Migraine headache without aura CHAPARRO (nonalcoholic steatohepatitis) Obstructive sleep apnea syndrome Polycystic ovaries Surgical History anterior cruciate ligament reconstruction section twice Colonoscopy - MAC (11/26/16) EGD - MAC (11/26/16) Endoscopic Carpal Tunnel release (01/14/09) 09/16/2010 REPEAT ECTR RIGHT Ligation of fallopian tube Open Carpal Tunnel release (10/23/12) RIGHT SIDE, left 8.14.14 Vaginal hysterectomy Social History Smoking/Tobacco Use Status: Former Tobacco Use Alcohol Intake: never Drug use: Never Substance use type: does not use Household members: spouse and children Housing: other Details: trailer Current gender identity: female What is your relationship status?: Panel score (0-1 are the most socially isolated patients): 1 Seatbelt use: always Do you feel safe at home: Yes Do you feel safe in your relationship?: Yes Exam Narrative Exam Narrative: 1.Const: Well-nourished, Well-developed, appearing stated age 2.Eyes: PERRL, no conjunctival injection, and symmetrical lids. 3.ENT: Atraumatic external nose and ears. Moist MM. Neck: Symmetric, trachea midline, No thyromegaly. No significant effusion erythema or edema. No evidence of otitis media 4.CVS: +S1/S2, No murmurs or gallops. Peripheral pulses 2+ and equal in all extremities. Brisk capillary refill in all extremities. 5.RESP: Unlabored respiratory effort. Clear to auscultation bilaterally. No wheezes rales or rhonchi 6.GI: Soft, Nontender/Nondistended, No hepatosplenomegaly. No guarding or rebound. 7.MSK: Normocephalic/Atraumatic, Extremities w/o deformity or ttp No cyanosis or clubbing, Normal movement of all extremities, no calf tenderness 8.Skin: Warm, Dry. No rashes or lesions. 9.Neuro: ship's officer II-XII grossly intact. Sensation grossly intact, no focal neurologic deficits. 10.Psych: (AAO) x3. Appropriate mood and affect Course Vital Signs Vital signs: Vital Signs Temperature 36.3 C L 04/28/20 06:56 Pulse 62 04/28/20 06:56 Respiratory Rate 16 04/28/20 06:56 Blood Pressure 126/42 L 04/28/20 06:56 Pulse Oximetry 98 04/28/20 06:56 Temperature 36.3 C L 04/28/20 06:56 Temperature Source Skin 04/28/20 06:56 Pulse 62 04/28/20 06:56 Respiratory Rate 16 04/28/20 06:56 Respiratory Effort Non-Labored 04/28/20 06:56 Blood Pressure 126/42 L 04/28/20 06:56 Blood Pressure Position Sitting 04/28/20 06:56 Pulse Oximetry 98 04/28/20 06:56 Oxygen Delivery Method Room Air 04/28/20 06:56 Oxygen Flow Rate 0 04/28/20 06:56 Pain Level 3 04/28/20 06:56 Lab/Test Results Lab/Test Results: 04/28/20 07:07 Nasopharynx Influenza Types A,B Antigen - Pending
--- NOTE | 2020-04-28 07:40 | DI.VRAD_ITS ---
PROCEDURE INFORMATION: Exam: XR Chest, 1 View Exam date and time: 04/28/2020 7:22 AM Age: 39 years old Clinical indication: Patient HX: Cough x2 weeks, R/O pneumonia. TECHNIQUE: Imaging protocol: XR of the chest Views: 1 view. COMPARISON: CR XR PORTABLE CHEST AP 10/21/2019 6:04 PM FINDINGS: Lungs: Unremarkable. No consolidation. Pleural space: Unremarkable. No pleural effusion. No pneumothorax. Heart/Mediastinum: Unremarkable. No cardiomegaly. Bones/joints: Unremarkable. IMPRESSION: No acute findings. Dictated and Authenticated by: Grant Stephens MD. Ordering:NATHAN Mata MD
[2020-04-28 08:04] VITALS: BP 111/58; PULSE 71; RESP 16; TEMP 36.1; O2SAT 96
[2020-04-30 00:46] LABS: SARS-CoV-2 RNA Undetected (Undetected); SARS-CoV-2 Specimen Source Nasopharynx
== END 2020-04-28 08:07 | disposition home or self-care (01) ==
PROVIDERS: Emergency Provider Student in an Organized Health Care Education/Training Program; PCP Nurse Practitioner Family
DX: R09.82 Postnasal drip (principal); J06.9 Acute upper respiratory infection, unspecified; H93.8X3 Other specified disorders of ear, bilateral; Z03.818 Encounter for observation for suspected exposure to other biological agents ruled out; E11.9 Type 2 diabetes mellitus without complications; I10 Essential (primary) hypertension
CPT/HCPCS: 87449; 94640; 99283; U0003; 71045; 99284

== ENCOUNTER 2020-05-23 08:26 | Outpatient (CLI) | payer MEDICAID, SELFPAY ==
[2020-05-24 03:01] LABS: COVID-19 RT-PCR UVMMC Result Negative (Negative)
== END 2020-05-23 08:46 ==
PROVIDERS: PCP Nurse Practitioner Family; Visit Provider Student in an Organized Health Care Education/Training Program
DX: Z11.59 Encounter for screening for other viral diseases (principal); Z01.818 Encounter for other preprocedural examination; G56.21 Lesion of ulnar nerve, right upper limb; M77.01 Medial epicondylitis, right elbow
CPT/HCPCS: U0003

== ENCOUNTER 2020-05-28 09:38 | Day surgery (SDC) | payer MEDICAID, SELFPAY ==
[2020-05-28] VITALS (8 sets, daily range): BP systolic 127–150; BP diastolic 56–76; PULSE 68–86; RESP 18–25; TEMP 36.4–36.6; O2SAT 94–98
--- NOTE | 2020-05-28 09:42 | PDOC.DSDIS_ITS ---
Discharge Plan Disposition Patient Disposition: HOME Condition: Good Discharge Details Reason For Visit: Rt cubital tunnel syndrome & lateral epicondylitis Attending Provider: Guy Becerra Primary Care Provider: Deyanira Marcus Home Meds and New Rx's Prescriptions: New acetaminophen 500 mg tablet 500 mg PO Q6H PRN (Reason: pain) Qty: 60 RF: 0 ibuprofen 600 mg tablet 600 mg PO TID PRN (Reason: pain) Qty: 60 RF: 0 hydrocodone-acetaminophen 5-325 mg tablet 1 tab PO Q6H PRN (Reason: severe pain) Qty: 14 RF: 0 Continued docusate sodium 100 mg capsule 100 mg PO DAILY PRNRF: 0 lisinopril 10 mg tablet 10 mg PO DAILY RF: 0 sumatriptan succinate 50 mg tablet See Rx Instructions PO .COMPLEX RF: 0 gabapentin 300 mg capsule 300 mg PO TID RF: 0 Women's 50 Plus Multivitamin 400 mcg-500 mg calcium-20 mcg tablet 1 tab PO DAILY RF: 0 albuterol sulfate 90 mcg/actuation Hfa Aerosol Inhaler 2 puff INHALATION QID PRNRF: 0 divalproex [Depakote] 250 mg Tablet,Delayed Release (Dr/Ec) 250 mg PO BID RF: 0 pantoprazole 40 mg Tablet,Delayed Release (Dr/Ec) 40 mg PO DAILY RF: 0 loratadine 10 mg capsule 10 mg PO DAILY PRNRF: 0 promethazine 25 mg tablet 25 mg PO Q6H PRN (Reason: nausea and vomiting) Qty: 10 RF: 0 metoclopramide HCl 10 mg tablet,disintegrating 10 mg PO Q6H PRN (Reason: nausea and vomiting) Qty: 10 RF: 0 loratadine 10 mg capsule 10 mg PO DAILY Qty: 20 RF: 0 benzonatate [Tessalon Perles] 100 mg capsule 100 mg PO BID PRNQty: 20 RF: 0 Discontinued meloxicam 15 mg tablet 15 mg PO DAILY Qty: 30 RF: 0 ibuprofen 600 mg tablet 600 mg PO TID PRNQty: 30 RF: 0 acetaminophen 500 mg capsule 500 mg PO Q4H PRN (Reason: pain) Qty: 30 RF: 0 Discharge Instructions Additional Instructions: Cubital Tunnel Decompression and Lateral Epicondylitis Debridement Discharge Instructions Activity: You should stay in the sling for the first 2 weeks. You may come out of the sling for gentle motion and hygiene but should largely remain in the sling to allow the incision site to heal. Gentle motion of the elbow, hand, wrist, and fingers is okay and encouraged after the first few days, but no repetitive activities nor heavy lifting. You may apply ice. Medications: - You should take Tylenol and Ibuprofen around the clock. - You have been prescribed Hydrocodone for breakthrough pain. Dressings: - The initial surgical dressing should stay in place for 3 days. It may then be removed and kept clean and dry. You should cover with a light gauze dressing. - You may shower after 3 days and get the wound wet. Follow-up: 10 days Referrals: Guy Becerra MD [ [facility] STAFF PHYSICIAN] - Equipment/Supplies: Sling Activity:: Elevate Remove Dressings/Wound Care:: 72 hours Shower/Bathe:: 72 hours Diet:: As Tolerated Discharge Orders Discharge Orders: Discharge Order (Routine); Ordered 05/28/20 Ordered By: Desirae Mishra DS: Diagnosis Discharge Diagnosis (1) Cubital tunnel syndrome on right: Status: Acute (2) Right lateral epicondylitis: Status: Acute
[2020-05-28] MEDS: Lactated Ringers 1,000 ML 80 ML IV (10:17)
[2020-05-28] MEDS: ceFAZolin 2 GM/50 ML BAG IVPB (12:07)
--- NOTE | 2020-05-28 21:43 | ROE_ITS ---
Date of service: 05/28/20 Time of Service: 12:44 Operative Note Operative Note DATE OF PROCEDURE: 05/29/20 PRE-OP DIAGNOSIS: Right Cubital Tunnel Syndrome, Right Lateral Epicondylitis POST-OP DIAGNOSIS: same PROCEDURE: Right Cubital Tunnel Decompression with Anterior Subcutaneous Transposition and Lateral Elbow Debridement - Right SURGEON: Guy Becerra [employer] DEVELOPER: Desirae Mishra ANESTHESIA: GETA ESTIMATED BLOOD LOSS: 0 PATHOLOGY: none sent TOURNIQUET TIME: 40 COMPLICATIONS: None Patient was transported to: PACU Patient's condition: stable Indications: Dawn is a 40 year old female who has had symptoms of cubital tunnel syndrome and lateral epicondylitis on the right. Nonoperative treatment options had been trialed. Nerve conduction studies identified the cubital tunnel as the point of compression. Given failure of nonoperative treatments and persistent symptoms, I offered operative intervention. I reviewed the technical details of a cubital tunnel decompression with possible anterior subcutaneous transposition. I reviewed the risk of the procedure to include bleeding, infection, pain, stiffness, continued symptoms, nerve instability, damage to nerves and vessels, and incomplete release. Despite these risks, the patient elected to proceed. Findings: There was a tightened cubital tunnel. The ulnar nerve was release from the first motor branch distally through the [facility] [place] proximally. There was a thickened sheath around the nerve which was released. The nerve was transposed with a adipofascial sling. Procedure Description: Dawn was greeted in the preoperative holding area. Name and surgical site were confirmed. The history and physical was completed. The consent was reviewed the patient and signed. She was taken back to the operating room. The patient was placed in the supine positioned and a general anesthetic was administered. The right was then prepped with ChloraPrep and draped in a standard fashion after a nonsterile tourniquet was placed high up into the axilla of the arm. Prophylactic antibiotics in the form of cefazolin were administered. A timeout was performed for safe surgery. The surgical site was drawn on the skin for both lateral and medial procedures. The planned surgical field was anesthetized with 0.25% bupivacaine with epinephrine. The limb was exsanguinated and the tourniquet was inflated where it stayed for 40 minutes. Starting with the lateral side of the elbow, a 4 cm decision is made starting just proximal to the lateral condyle extending over the muscle belly of the extensor origin. The deep tissue was dissected sharply through the fat. Deeper dissection was done bluntly to identify the fascia of the extensor compartment. The border between the muscular extensor belly and the tenderness ECRL was identified. This interval was incised and the muscle belly was retracted along the tendinous portion of the ECRL to expose the underlying ECRB. There is some very mild amount of degenerative tissue seen in this area. It was debrided with the backside of the knife and then with a rongeur. A small amount of its insertion onto the lateral condyle was also debrided with a rongeur. The wound was then thoroughly irrigated. The deeper tissues were injected with 0.25% bupivacaine. The extensor fascia was closed with a 0 Vicryl interrupted fashion. The deep skin layers were closed with 3-0 Vicryl followed by 4-0 nyl on. Attention was then turned to the medial side of the elbow. A 8 cm incision was made curvilinearly around the medial elbow. The skin was incised only. The deep tissue and subcutaneous fat was dissected with a tenotomy scissors trying to protect any branches of the medial antebrachial cutaneous nerve. Any branches that were identified were retracted out of the way. The ulnar nerve was palpated and identified. A small window into the cubital tunnel, sheath overlying the nerve, was created and the nerve was able to be palpated with the Cassandra. This step took a significant amount of time given the thickness and adherence of these tissues to the nerve. Once finally within the true sheath, a Metzenbaum scissor was then used to open up the sheath starting with Dickerson's ligament. I then worked distal over the ulnar nerve releasing any constraints against the nerve all the way to the fascia of the FCU muscle belly. This muscle belly was bluntly all the way down to the first motor branch of the ulnar nerve and the overlying fascia was incised. Likewise starting there at the lateral epicondyle, I proceeded to work proximally to release any constraints over the ulnar nerve. This was taken all the way to the [place]. The medial intermuscular septum was also palpated and any sharp edges against the ulnar nerve were resected and released. After fully releasing the nerve it was inspected visually. I was also able to palpate the nerve fully and reach one finger up into the proximal and distal aspects to make sure there were no constraints against the nerve. A freer elevator was also used to slide easily against the ulnar nerve without any points of constriction. The arm was then taken through range of motion. The ulnar nerve did sublux/dislocate out of its groove behind the lateral epicondyle. Therefore I performed an anterior subcutaneous transposition. The nerve was gently manipulated and freed of all attachments until is able to move anteriorly freely. Once was able to move anteriorly freely I then raised a adipose fascial flap off of the flexor pronator origin. This was base of the far medial aspect. The nerve is translated anteriorly and the flap was secured to the deep dermis. Both with a Cassandra and with my finger I was able to inspect the nerve to make sure is resting comfortably anteriorly without any pinpoints of pressure or constriction. There is no tension on the nerve. The tourniquet was then deflated. Any areas of bleeding were cauterized with bipolar electrocautery. The wound was thoroughly irrigated. The deep tissue was closed with a 3-0 Vicryl. The skin was closed with a 4-0 nylon. The wound was dressed with Xeroform, 4 x 4's, ABD, Kerlix and an Jatin wrap. Dawn was placed into a sling. Dawn was transferred back to the PACU in a stable condition.
== END 2020-05-28 15:25 | disposition home or self-care (01) ==
PROVIDERS: PCP Nurse Practitioner Family; Visit Provider Student in an Organized Health Care Education/Training Program
PROC: (CPT 64718; principal; 2020-05-28 12:30)
PROC: (CPT 64718; 2020-05-28 12:30)
DX: G56.21 Lesion of ulnar nerve, right upper limb (principal); M77.11 Lateral epicondylitis, right elbow; I10 Essential (primary) hypertension; E11.9 Type 2 diabetes mellitus without complications; K21.9 Gastro-esophageal reflux disease without esophagitis
CPT/HCPCS: 64718; J0690; J1100; J1885; J2001; J2405

== ENCOUNTER 2020-07-07 14:57 | Outpatient (REF) | payer MEDICAID, SELFPAY ==
[2020-07-07 22:29] LABS: TSH (W/Ref FT4) 1.42 uIU/mL (0.36-3.74)
== END 2020-07-07 15:17 ==
LOC: NCHCN 14:57
PROVIDERS: PCP Nurse Practitioner Family; Visit Provider Nurse Practitioner Family
DX: E11.9 Type 2 diabetes mellitus without complications (principal); F31.9 Bipolar disorder, unspecified; N95.1 Menopausal and female climacteric states; R56.9 Unspecified convulsions
CPT/HCPCS: 84443

== ENCOUNTER 2020-07-11 15:23 | Emergency (ER) | payer MEDICAID, SELFPAY ==
[2020-07-11 15:53] VITALS: BP 150/97; PULSE 98; RESP 18; O2SAT 97
[2020-07-11] MEDS: Ondansetron 4 MG/2 ML VIAL IVP (16:42)
[2020-07-11] MEDS: Normal Saline 1,000 ML 1000 ML IV (16:42)
[2020-07-11 16:46] LABS: Bilirubin Negative (Negative); Blood Trace-lysed (Negative); Clarity Clear (Clear); Glucose 500 mg/dL (Negative); Ketones Negative (Negative); Leukocyte Esterase Negative (Negative); Nitrite Negative (Negative); Specific Gravity 1.025 (1.005-1.025); Urobilinogen 0.2 EU/dL (Up TO 0.2); pH 5.5 (5-8)
[2020-07-11 16:51] LABS: Abs Immature Grans 0.03 10^3/uL (0.0-0.06); Absolute Basophil Count 0.07 10^3/uL (0.0-0.2); Absolute Lymphocyte Count 4.39 10^3/uL (1.2-3.4); Absolute Monocyte Count 0.69 10^3/uL (0.1-0.8); Basophils % 0.6; HCT 42.2 % (36.0-46.0); HGB 14.2 g/dL (11.2-15.7); Immature Grans % 0.3; Lymphocytes % 38.1; MCH 27.8 pg (27.0-33.0); MCHC 33.6 % (32.0-36.0); MCV 82.6 fL (80-95); MPV 10.3 fL (8.0-11.0); Nucleated RBC 0 %; Platelet Count 331 10^3/uL (130-400); RBC 5.11 10^6/uL (3.93-5.22); RDW 12.2 % (11.7-14.6); RDW-SD 37.1 fL; WBC 11.53 10^3/uL (4.4-10.8)
[2020-07-11 16:52] LABS: Absolute Eosinophil Count 0.12 10^3/uL (0.0-0.7); Absolute Neutrophil Count 6.23 10^3/uL (1.2-6.7)
[2020-07-11 16:53] LABS: Bacteria Negative HPF (Negative); C & S Indicated? No; Casts Negative LPF (Negative); Crystals Negative HPF (Negative); Epithelial Cells Few HPF (Negative); Mucus Negative (Negative); RBC 0-2 HPF (0-2); WBC 0-2 HPF (0-5)
[2020-07-11 17:04] LABS: ALT 83 U/L (14-59); AST 47 U/L (15-37); Albumin 4.2 g/dL (3.4-5.0); Alkaline Phosphatase 97 U/L (46-116); Anion Gap 9.2 mmol/L (3-11); BUN 11 mg/dL (7-18); Bilirubin, Total 0.3 mg/dL (0.2-1.0); CO2 26.8 mmol/L (21.0-32.0); CREATININE 0.69 mg/dL (0.55-1.02); Calcium 10.2 mg/dL (8.5-10.1); Chloride 103 mmol/L (98-107); Glucose 100 mg/dL (74-106); Lipase 55 U/L (73-393); Potassium 3.8 mmol/L (3.5-5.1); Sodium 139 mmol/L (136-145); Total Protein 8.9 g/dL (6.4-8.2)
[2020-07-11 17:25] VITALS: BP 127/52; PULSE 77; RESP 17; TEMP 36.7; O2SAT 97
--- NOTE | 2020-07-11 17:50 | ED.GENADUL_ITS ---
Discharge Plan Disposition Patient Disposition: HOME Condition: Stable Discharge Details Clinical Impression: Nausea vomiting and diarrhea Primary Care Provider: Deyanira Marcus ED Provider: Rodrigo Burns Home Meds and New Rx's Prescriptions: New ondansetron HCl [Zofran] 4 mg tablet 4 mg PO Q8H PRNQty: 10 RF: 0 Continued docusate sodium 100 mg capsule 100 mg PO DAILY PRNRF: 0 lisinopril 10 mg tablet 10 mg PO DAILY RF: 0 sumatriptan succinate 50 mg tablet See Rx Instructions PO .COMPLEX RF: 0 gabapentin 300 mg capsule 300 mg PO TID RF: 0 albuterol sulfate 90 mcg/actuation Hfa Aerosol Inhaler 2 puff INHALATION QID PRNRF: 0 divalproex [Depakote] 250 mg Tablet,Delayed Release (Dr/Ec) 250 mg PO BID RF: 0 pantoprazole 40 mg Tablet,Delayed Release (Dr/Ec) 40 mg PO DAILY RF: 0 loratadine 10 mg capsule 10 mg PO DAILY PRNRF: 0 promethazine 25 mg tablet 25 mg PO Q6H PRN (Reason: nausea and vomiting) Qty: 10 RF: 0 metoclopramide HCl 10 mg tablet,disintegrating 10 mg PO Q6H PRN (Reason: nausea and vomiting) Qty: 10 RF: 0 loratadine 10 mg capsule 10 mg PO DAILY Qty: 20 RF: 0 acetaminophen 500 mg tablet 500 mg PO Q6H PRN (Reason: pain) Qty: 60 RF: 0 ibuprofen 600 mg tablet 600 mg PO TID PRN (Reason: pain) Qty: 60 RF: 0 Discharge Instructions Instructions: Acute Nausea and Vomiting (ED) Additional Instructions: Zofran as directed. Clear liquid diet, advance as tolerated. Zofran as directed for nausea. [id number] Imodium as directed for diarrhea. Plenty of fluids to avoid dehydration. Please watch for new or worsening symptoms and return to the ER for any concerns. Otherwise reach out to your primary care provider on Tuesday for prompt outpatient reevaluation. Stand Alone Forms: Work Release Discharge Data Discharge Date/Time-TO BE ENTERED AT DEPARTURE: 07/11/20 18:10 Medical Decision Making 40-year-old female presents for nausea, vomiting, diarrhea for the past 2-3 days. She took an antiemetic yesterday which helped but did not take it today. She denies fever, recent sick exposures, travel, bad food exposure. She is requesting a work note as she works at [employer] She denies any pain whatsoever. Clinically she appears well, nontoxic. Abdomen soft, nontender, normal bowel sounds. Abdomen certainly nonsurgical. Will obtain IV access, obtain laboratory values, urine, and give IV Zofran and fluids. Patient is comfortable with plan. Laboratory values reveal a minimally elevated white count at 11.53, hemoglobin 14.2 hematocrit 42.2 platelet count 331. Electrolytes unremarkable. Creatinine 0.69 with a GFR greater than 60. Calcium 10.2 AST 47 ALT 83, alk phosphatase 97, urinalysis negative ketones, 0-2 red and white cells. Negative nitrate. Negative leuk esterase. She received IV fluids, Zofran and was then p.o. challenge successfully. Upon reevaluation patient is asymptomatic. She is comfortable discharge. We discussed her laboratory values, no obvious emergent process. Discussed prescription for Zofran, work note for today, clear liquid diet, advancing as tolerated, plenty of fluids to avoid dehydration. Patient is comfortable with this plan and has no additional questions or concerns. She was encouraged to return to the ER for new or worsening symptoms, otherwise contact her primary care provider on Tuesday. Medical Records Medical records reviewed: Yes I reviewed the patient's medical records. Lab Data Lab results reviewed: Yes I reviewed the patient's lab results. Lab results narrative: Laboratory Tests Range/Units 07/11/20 07/11/20 07/11/20 16:27 16:27 16:27 WBC (4.4-10.8) 10^3/uL 11.53 H RBC (3.93-5.22) 10^6/uL 5.11 Hgb (11.2-15.7) g/dL 14.2 Hct (36.0-46.0) % 42.2 MCV (80-95) fL 82.6 MCH (27.0-33.0) pg 27.8 MCHC (32.0-36.0) % 33.6 RDW (11.7-14.6) % 12.2 Plt Count (130-400) 10^3/uL 331 MPV (8.0-11.0) fL 10.3 Immature Gran % 0.3 Neutrophils % 54.0 Lymphocytes % 38.1 Monocytes % 6.0 Eosinophils % 1.0 Basophils % 0.6 Nucleated RBC % % 0 Absolute Neutrophils (1.2-6.7) 10^3/uL 6.23 Absolute Lymphocytes (1.2-3.4) 10^3/uL 4.39 H Absolute Monocytes (0.1-0.8) 10^3/uL 0.69 Absolute Eosinophils (0.0-0.7) 10^3/uL 0.12 Absolute Basophils (0.0-0.2) 10^3/uL 0.07 Sodium (136-145) mmol/L 139 Potassium (3.5-5.1) mmol/L 3.8 Chloride (98-107) mmol/L 103 Carbon Dioxide (21.0-32.0) mmol/L 26.8 Anion Gap (3-11) mmol/L 9.2 BUN (7-18) mg/dL 11 Creatinine (0.55-1.02) mg/dL 0.69 Estimated GFR/1.73 m2 (mL/min/1.73m2) >= 60.00 Glucose (74-106) mg/dL 100 Calcium (8.5-10.1) mg/dL 10.2 H Total Bilirubin (0.2-1.0) mg/dL 0.3 AST (15-37) U/L 47 H ALT (14-59) U/L 83 H Alkaline Phosphatase (46-116) U/L 97 Total Protein (6.4-8.2) g/dL 8.9 H Albumin (3.4-5.0) g/dL 4.2 Lipase (73-393) U/L 55 Urine Color (Yellow) Yellow Urine Clarity (Clear) Clear Urine pH (5-8) 5.5 Ur Specific [place] (1.005-1.025) 1.025 Urine Protein (Negative) mg/dL 30 H Urine Ketones (Negative) mg/dL Negative Urine Blood (Negative) Trace-lysed H Urine Nitrite (Negative) Negative Urine Bilirubin (Negative) Negative Urine Urobilinogen (Up TO 0.2) EU/dL 0.2 Ur Leukocyte Esterase (Negative) Negative Urine RBC (0-2) HPF 0-2 Urine WBC (0-5) HPF 0-2 Ur Epithelial Cells (Negative) HPF Few Urine Crystals (Negative) HPF Negative Urine Bacteria (Negative) HPF Negative Urine Casts (Negative) LPF Negative Urine Mucus (Negative) Negative Ur Culture Indicated? No Urine Glucose (Negative) mg/dL 500 H HPI General Mode of arrival: ambulatory . Date/Time Provider Initiated Documentation: 07/11/20 16:01 . Limitations to Documentation: no limitations . Information obtained by: patient . HPI Narrative: This is a 40-year-old female who reports past medical history that includes asthma, diabetes that is diet controlled, anxiety, depression, migraines, presenting to the ER today for evaluation of nausea, vomiting, diarrhea for the past 2-3 days. She denies any pain whatsoever. She took nausea medication that she had at home yesterday which helped but did not take it again today. She denies recent bad food exposure, travel, sick contacts. She denies fever, sore throat, headache, chest pain, shortness of breath, blood in her stool or vomit, black tarry stools, back pain. She states that she will need a work note for today's visit Related Data Home Medications Medication Instructions Recorded Confirmed albuterol sulfate 2 puff INHALATION QID PRN 10/28/18 07/11/20 loratadine 10 mg PO DAILY PRN 12/18/18 07/11/20 promethazine 25 mg PO Q6H PRN #10 tab 03/09/19 07/11/20 divalproex [Depakote] 250 mg PO BID 05/11/19 07/11/20 pantoprazole 40 mg PO DAILY 05/11/19 07/11/20 docusate sodium 100 mg capsule 100 mg PO DAILY PRN 08/30/19 07/11/20 metoclopramide HCl 10 mg PO Q6H PRN #10 tab 09/20/19 07/11/20 lisinopril 10 mg tablet 10 mg PO DAILY 10/12/19 07/11/20 gabapentin 300 mg capsule 300 mg PO TID 11/27/19 07/11/20 sumatriptan succinate 50 mg tablet See Rx Instructions PO .COMPLEX 11/27/19 07/11/20 loratadine 10 mg PO DAILY #20 cap 04/28/20 07/11/20 acetaminophen 500 mg PO Q6H PRN #60 tab 05/28/20 07/11/20 ibuprofen 600 mg PO TID PRN #60 tab 05/28/20 07/11/20 ondansetron HCl [Zofran] 4 mg PO Q8H PRN #10 tab 07/11/20 Previous Rx's Medication Instructions Recorded promethazine 25 mg PO Q6H PRN #10 tab 03/09/19 metoclopramide HCl 10 mg PO Q6H PRN #10 tab 09/20/19 loratadine 10 mg PO DAILY #20 cap 04/28/20 acetaminophen 500 mg PO Q6H PRN #60 tab 05/28/20 ibuprofen 600 mg PO TID PRN #60 tab 05/28/20 ondansetron HCl [Zofran] 4 mg PO Q8H PRN #10 tab 07/11/20 Allergies Allergy/AdvReac Type Severity Reaction Status Date / Time amoxicillin Allergy Severe Other (See Unverified 07/11/20 15:57 Comment) artichoke Allergy Severe ANAPHYLAXIS Unverified 07/11/20 15:57 Penicillins Allergy Intermediate HIVES Unverified 07/11/20 15:57 sodium hypochlorite solution Allergy Intermediate HIVES/SOB Unverified 07/11/20 15:57 [sodium hypochlorite] General Stated Complaint: Nausea/Vomit/Diar MIKE: 3 Review of Systems Constitutional Constitutional: Denies fatigue, Denies fever(s) and Denies headache(s) ENT Ears, Nose, Mouth, and Throat: Denies headache(s) and Denies neck pain Cardiovascular Cardiovascular: Denies chest pain and Denies dyspnea Respiratory Respiratory: Denies cough and Denies dyspnea Gastrointestinal Gastrointestinal: Denies abdominal pain, Denies melena, Denies hematochezia, Denies constipation, Reports diarrhea, Reports nausea and Reports vomiting Genitourinary Genitourinary: Denies dysuria Musculoskeletal Musculoskeletal: Denies neck pain Integumentary/Breasts Skin/Breast: Denies rash Neurologic Neurologic: Denies headache(s) Endocrine Endocrine: Denies fatigue PFSH Medical History Anxiety and depression Asthma Diabetes mellitus, type 2 Elevated lipids Migraine Migraine headache without aura CHAPARRO (nonalcoholic steatohepatitis) Obstructive sleep apnea syndrome Polycystic ovaries Surgical History anterior cruciate ligament reconstruction section twice Colonoscopy - MAC (11/26/16) EGD - MAC (11/26/16) Endoscopic Carpal Tunnel release (01/14/09) 09/16/2010 REPEAT ECTR RIGHT Ligation of fallopian tube Open Carpal Tunnel release (10/23/12) RIGHT SIDE, left 8.14.14 Vaginal hysterectomy Social History Smoking/Tobacco Use Status: Former Tobacco Use Quit Date: 08/01/05 Smoking risk assessment performed?: Yes Alcohol Intake: never Drug use: Never Substance use type: does not use Household members: spouse and children Housing: other Details: trailer Current gender identity: female What is your relationship status?: Panel score (0-1 are the most socially isolated patients): 1 Seatbelt use: always Do you feel safe at home: Yes Do you feel safe in your relationship?: Yes Exam Const General: cooperative, healthy appearing, comfortable and no acute distress Orientation: alert and awake HENMT Head: normal to inspection, normocephalic and atraumatic Face and sinus: normal facial exam Mouth: moist mucous membranes Throat: posterior oropharynx normal Eyes General: appearance normal, both eyes and all related structures Conjunctivae: conjunctivae normal Sclera: sclerae normal Neck Neck: normal visual inspection, full ROM, no meningeal signs, trachea midline and supple Resp Effort & Inspection: normal respiratory effort and able to speak in complete sentences Auscultation: clear to auscultation bilaterally Cardio Rate: regular rate Rhythm: regular rhythm GI Inspection: normal to inspection Palpation: soft, not firm, no guarding and nontender Auscultation: normal bowel sounds Back/Spine/Pelvis Back: No back tenderness Skin General skin exam: no rashes or lesions noted Neuro General: patient alert, patient awake, moves all extremities and no focal motor deficits Sensory Exam: no sensory deficits noted Psych Appearance: grossly normal Mental Status: mental status grossly normal Course Vital Signs Vital signs: Vital Signs Pulse 98 H 07/11/20 15:53 Respiratory Rate 18 07/11/20 15:53 Blood Pressure 150/97 H 07/11/20 15:53 Pulse Oximetry 97 07/11/20 15:53 Temperature 36.7 C 07/11/20 17:25 Temperature Source Temporal Artery Scan 07/11/20 17:25 Pulse 77 07/11/20 17:25 Respiratory Rate 17 07/11/20 17:25 Respiratory Effort Non-Labored 07/11/20 16:01 Blood Pressure 127/52 L 07/11/20 17:25 Blood Pressure Position Sitting 07/11/20 15:53 Pulse Oximetry 97 07/11/20 17:25 Oxygen Delivery Method Room Air 07/11/20 17:25 Oxygen Flow Rate 0 07/11/20 17:25 Pain Level 0 07/11/20 17:25 Lab/Test Results Lab/Test Results: Laboratory Tests Range/Units 07/11/20 07/11/20 07/11/20 16:27 16:27 16:27 WBC (4.4-10.8) 10^3/uL 11.53 H RBC (3.93-5.22) 10^6/uL 5.11 Hgb (11.2-15.7) g/dL 14.2 Hct (36.0-46.0) % 42.2 MCV (80-95) fL 82.6 MCH (27.0-33.0) pg 27.8 MCHC (32.0-36.0) % 33.6 RDW (11.7-14.6) % 12.2 Plt Count (130-400) 10^3/uL 331 MPV (8.0-11.0) fL 10.3 Immature Gran % 0.3 Neutrophils % 54.0 Lymphocytes % 38.1 Monocytes % 6.0 Eosinophils % 1.0 Basophils % 0.6 Nucleated RBC % % 0 Absolute Neutrophils (1.2-6.7) 10^3/uL 6.23 Absolute Lymphocytes (1.2-3.4) 10^3/uL 4.39 H Absolute Monocytes (0.1-0.8) 10^3/uL 0.69 Absolute Eosinophils (0.0-0.7) 10^3/uL 0.12 Absolute Basophils (0.0-0.2) 10^3/uL 0.07 Sodium (136-145) mmol/L 139 Potassium (3.5-5.1) mmol/L 3.8 Chloride (98-107) mmol/L 103 Carbon Dioxide (21.0-32.0) mmol/L 26.8 Anion Gap (3-11) mmol/L 9.2 BUN (7-18) mg/dL 11 Creatinine (0.55-1.02) mg/dL 0.69 Estimated GFR/1.73 m2 (mL/min/1.73m2) >= 60.00 Glucose (74-106) mg/dL 100 Calcium (8.5-10.1) mg/dL 10.2 H Total Bilirubin (0.2-1.0) mg/dL 0.3 AST (15-37) U/L 47 H ALT (14-59) U/L 83 H Alkaline Phosphatase (46-116) U/L 97 Total Protein (6.4-8.2) g/dL 8.9 H Albumin (3.4-5.0) g/dL 4.2 Lipase (73-393) U/L 55 Urine Color (Yellow) Yellow Urine Clarity (Clear) Clear Urine pH (5-8) 5.5 Ur Specific [place] (1.005-1.025) 1.025 Urine Protein (Negative) mg/dL 30 H Urine Ketones (Negative) mg/dL Negative Urine Blood (Negative) Trace-lysed H Urine Nitrite (Negative) Negative Urine Bilirubin (Negative) Negative Urine Urobilinogen (Up TO 0.2) EU/dL 0.2 Ur Leukocyte Esterase (Negative) Negative Urine RBC (0-2) HPF 0-2 Urine WBC (0-5) HPF 0-2 Ur Epithelial Cells (Negative) HPF Few Urine Crystals (Negative) HPF Negative Urine Bacteria (Negative) HPF Negative Urine Casts (Negative) LPF Negative Urine Mucus (Negative) Negative Ur Culture Indicated? No Urine Glucose (Negative) mg/dL 500 H POC- Test(urine) Negative
== END 2020-07-11 18:10 | disposition home or self-care (01) ==
PROVIDERS: Emergency Provider Physician Assistant; PCP Nurse Practitioner Family
DX: R11.2 Nausea with vomiting, unspecified (principal); R19.7 Diarrhea, unspecified; E11.9 Type 2 diabetes mellitus without complications
CPT/HCPCS: 36415; 80053; 81025; 83690; 96361; 96374; 99284; 81003; 81015; 85025; J2405

== ENCOUNTER 2020-08-08 00:20 | Outpatient (CLI) | payer MEDICAID, SELFPAY ==
--- NOTE | 2020-08-08 13:00 | NS.NUTBLAN_ITS ---
Dawn is referred for Medical Nutrition Therapy for preparation for weight loss [place] [facility] [place] PMH: Dm2, Fatty Liver Dx, GERD. Ht: 5'6 Wt: 228 lbs BMI: 37. Dawn reports that she has tried many diets over the years but none have helped her keep her weight in an ideal range. She reports having gestational diabetes with both pregnancies and that she now takes metformin daily. She is compliant in taking her finger sticks 3-4 times daily. Diet recall indicates that Dawn often skips meals and tends to eat a large meal at night. She has no routine exercise but suffers from knee and back pain that limits her mobility. Dawn if very motivated to have WLS in view of her advanced liver disease and diabetes. Education today focused on ways to increase protein, vitamin/mineral and fluid intake in preparation for surgery. Provided meal plan for 1112-4260 kcal, 80-100 g CHO, 60-80 g protein daily. She has started to drink protein shakes and has increased her intake of fruits and vegetables. I encouraged her today to start on a multivitamin and 1000 mcg biotin. Dawn is motivated and informed regarding WLS. Follow up meeting scheduled for 09/11/20 at 1 pm .
== END 2020-08-08 00:40 ==
PROVIDERS: PCP Nurse Practitioner Family; Visit Provider Dietitian, Registered
DX: K76.0 Fatty (change of) liver, not elsewhere classified (principal); E11.9 Type 2 diabetes mellitus without complications; Z79.84 Long term (current) use of oral hypoglycemic drugs; Z68.37 Body mass index [BMI] 37.0-37.9, adult; Z71.3 Dietary counseling and surveillance
CPT/HCPCS: 97802

== ENCOUNTER 2020-08-15 10:55 | Emergency (ER) | payer MEDICAID, SELFPAY ==
[2020-08-15 11:04] VITALS: BP 128/65; PULSE 77; RESP 16; TEMP 36.5; O2SAT 98
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
[2020-08-15 12:04] VITALS: BP 117/50; PULSE 76; RESP 17; TEMP 36.6; O2SAT 97
[2020-08-15] MEDS: Methocarbamol 750 MG TAB PO (12:19)
== END 2020-08-15 12:20 | disposition home or self-care (01) ==
PROVIDERS: Emergency Provider Emergency Medicine; PCP Nurse Practitioner Family
DX: S20.222A Contusion of left back wall of thorax, initial encounter (principal); Y04.0XXA Assault by unarmed brawl or fight, initial encounter; Y07.499 Other family member, perpetrator of maltreatment and neglect; E11.9 Type 2 diabetes mellitus without complications
CPT/HCPCS: 99283; 71046; 71100

== ENCOUNTER 2020-09-04 14:37 | Outpatient (REF) | payer MEDICAID, SELFPAY ==
[2020-09-04 21:19] LABS: ALT 74 U/L (14-59); AST 43 U/L (15-37); Albumin 3.9 g/dL (3.4-5.0); Alkaline Phosphatase 96 U/L (46-116); Anion Gap 10.4 mmol/L (3-11); BUN 12 mg/dL (7-18); Bilirubin, Total 0.3 mg/dL (0.2-1.0); CO2 26.6 mmol/L (21.0-32.0); CREATININE 0.7 mg/dL (0.55-1.02); Calcium 9.8 mg/dL (8.5-10.1); Chloride 102 mmol/L (98-107); Glucose 125 mg/dL (74-106); Potassium 4.3 mmol/L (3.5-5.1); Sodium 139 mmol/L (136-145); TSH (W/Ref FT4) 1.36 uIU/mL (0.36-3.74); Total Protein 8.3 g/dL (6.4-8.2)
[2020-09-05 13:19] LABS: Calculated LDL 212 mg/dL (<100); Cholesterol 293 mg/dL (<200); HDL Cholesterol 48 mg/dL (40-60); Triglyceride 167 mg/dL (<150); Vitamin B12 773 pg/mL (193-986)
== END 2020-09-04 14:38 | disposition home or self-care (01) ==
LOC: NCHCN 14:37
PROVIDERS: PCP Nurse Practitioner Family; Visit Provider Nurse Practitioner Family
DX: I10 Essential (primary) hypertension (principal); E83.42 Hypomagnesemia; L30.4 Erythema intertrigo; N39.3 Stress incontinence (female) (male); K76.0 Fatty (change of) liver, not elsewhere classified; M54.16 Radiculopathy, lumbar region; E11.9 Type 2 diabetes mellitus without complications; Z00.00 Encounter for general adult medical examination without abnormal findings
CPT/HCPCS: 80053; 80061; 82607; 83735; 84443

== ENCOUNTER 2020-09-09 14:43 | Outpatient (REF) | payer MEDICAID, SELFPAY ==
[2020-09-11 14:14] LABS: Helicobacter pylori Ag, Feces Negative (Negative)
== END 2020-09-09 14:44 | disposition home or self-care (01) ==
LOC: NCHCN 14:43
PROVIDERS: PCP Nurse Practitioner Family; Visit Provider Nurse Practitioner Family
DX: K21.9 Gastro-esophageal reflux disease without esophagitis (principal); K31.9 Disease of stomach and duodenum, unspecified; K76.0 Fatty (change of) liver, not elsewhere classified; E11.9 Type 2 diabetes mellitus without complications
CPT/HCPCS: 87338

== ENCOUNTER 2020-09-11 03:05 | Outpatient (CLI) | payer MEDICAID, SELFPAY ==
--- NOTE | 2020-09-11 12:45 | NS.NUTBLAN_ITS ---
Dawn returns for Medical Nutrition Therapy for dietary counseling prior [place] [facility] [place]t: 227 lbs, 5'4 BMI 37. aDwn reports that she is taking an MVI and 1000 mcg biotin daily. She drinks a protein shake for breakfast and mostly a well balanced lunch and dinner later in day. She has started a routine exercise program of walking 20 min daily or using virtual exercise videos. Dawn report recent increase in A!C, now taking oral agent. She was unable to take metformin due to diarrhea. Today's session reviewed various meal and snack options to increase variety. Encouraged Dawn to continue to take vitamins and minerals and routine exercise in preparation for surgery. Goal for next month is to increase meal variety and report back in 4 weeks. Follow up visit scheduled for 10/02/20.
== END 2020-09-11 03:06 | disposition home or self-care (01) ==
PROVIDERS: PCP Nurse Practitioner Family; Visit Provider Dietitian, Registered
DX: E66.9 Obesity, unspecified (principal); Z68.37 Body mass index [BMI] 37.0-37.9, adult; E11.9 Type 2 diabetes mellitus without complications; Z71.3 Dietary counseling and surveillance
CPT/HCPCS: 97803

== ENCOUNTER 2020-10-02 04:16 | Outpatient (CLI) | payer MEDICAID, SELFPAY ==
--- NOTE | 2020-10-02 13:00 | NS.NUTBLAN_ITS ---
Dawn returns for Medical Nutrition Therapy for weight loss for third and final time for preparation for bariatric surgery at [facility]. Ht: 5'4, Wt: 227lbs, BMI: 37. She is taking chewable multivitamin and 1000 mcg biotin daily and drinking a protein shake daily (typically Slim Fast Low Carb). She reports that she has started to eat 3 meals daily and exercises at home (virtual) for 20 minutes daily. Meds include metformin 500 mg BID. Session today focused on answering questions re: meal, supplements and protein shakes that are optimal to consume after surgery. Recommended Isopure for clear liquid protein shake, and Veguita's Whey protein for protein shakes on full liquid. Encouraged continued exercise and following [id number] kcal meal plan. Overall, Dawn has made several positive life style changes to help her be successful in her weight loss goals. Dawn to follow up with content writer s/p surgery.
== END 2020-10-02 04:17 | disposition home or self-care (01) ==
LOC: DS 04:16
PROVIDERS: PCP Nurse Practitioner Family; Visit Provider Dietitian, Registered
DX: E66.9 Obesity, unspecified (principal); E11.9 Type 2 diabetes mellitus without complications; Z68.37 Body mass index [BMI] 37.0-37.9, adult; Z71.3 Dietary counseling and surveillance
CPT/HCPCS: 97803

== ENCOUNTER 2020-10-21 08:56 | Outpatient (REF) | payer MEDICAID, SELFPAY ==
[2020-10-21 14:14] LABS: ALT 57 U/L (14-59); AST 28 U/L (15-37); Albumin 3.6 g/dL (3.4-5.0); Alkaline Phosphatase 95 U/L (46-116); BUN 14 mg/dL (7-18); Bilirubin, Total 0.2 mg/dL (0.2-1.0); CREATININE 0.6 mg/dL (0.55-1.02); Calcium 9.3 mg/dL (8.5-10.1); Calculated LDL 108 mg/dL (<100); Chloride 104 mmol/L (98-107); Cholesterol 185 mg/dL (<200); Glucose 206 mg/dL (74-106); HDL Cholesterol 44 mg/dL (40-60); Potassium 4.5 mmol/L (3.5-5.1); Sodium 141 mmol/L (136-145); Total Protein 7.9 g/dL (6.4-8.2); Triglyceride 169 mg/dL (<150)
== END 2020-10-21 08:57 | disposition home or self-care (01) ==
LOC: NCHCN 08:56
PROVIDERS: PCP Nurse Practitioner Family; Visit Provider Nurse Practitioner Family
DX: E78.5 Hyperlipidemia, unspecified (principal); I10 Essential (primary) hypertension
CPT/HCPCS: 80053; 80061

== ENCOUNTER 2020-11-07 02:28 | Outpatient (CLI) | payer MEDICAID, SELFPAY ==
[2020-11-07 10:10] LABS: Source Nasal/Nares
[2020-11-07 15:39] LABS: COVID-19 PCR Negative (Negative)
== END 2020-11-07 02:29 | disposition home or self-care (01) ==
LOC: LBO 02:28
PROVIDERS: PCP Nurse Practitioner Family; Visit Provider Surgery
DX: Z20.822 Contact with and (suspected) exposure to COVID-19 (principal); Z01.818 Encounter for other preprocedural examination
CPT/HCPCS: 87635

== ENCOUNTER 2020-12-16 18:50 | Emergency (ER) | payer MEDICAID, SELFPAY ==
[2020-12-16 18:54] VITALS: BP 137/75; PULSE 62; RESP 16; TEMP 36.3; O2SAT 100
--- NOTE | 2020-12-16 18:59 | ED.GENADUL_ITS ---
Discharge Plan Disposition Patient Disposition: HOME Condition: Stable Discharge Details Clinical Impression: Right wrist sprain, Contusion of right forearm, Sprain of right elbow Primary Care Provider: Deyanira Marcus ED Provider: Rae Diaz Home Meds and New Rx's Prescriptions: Continued docusate sodium 100 mg capsule 100 mg PO DAILY PRNRF: 0 lisinopril 10 mg tablet 10 mg PO DAILY RF: 0 sumatriptan succinate 50 mg tablet See Rx Instructions PO .COMPLEX RF: 0 gabapentin 300 mg capsule 300 mg PO TID RF: 0 albuterol sulfate 90 mcg/actuation Hfa Aerosol Inhaler 2 puff INHALATION QID PRNRF: 0 divalproex [Depakote] 250 mg Tablet,Delayed Release (Dr/Ec) 250 mg PO BID RF: 0 pantoprazole 40 mg Tablet,Delayed Release (Dr/Ec) 40 mg PO DAILY RF: 0 methocarbamol 750 mg tablet 750 mg PO Q8H PRN (Reason: pain) Qty: 10 RF: 0 loratadine 10 mg capsule 10 mg PO DAILY PRNRF: 0 promethazine 25 mg tablet 25 mg PO Q6H PRN (Reason: nausea and vomiting) Qty: 10 RF: 0 metoclopramide HCl 10 mg tablet,disintegrating 10 mg PO Q6H PRN (Reason: nausea and vomiting) Qty: 10 RF: 0 loratadine 10 mg capsule 10 mg PO DAILY Qty: 20 RF: 0 acetaminophen 500 mg tablet 500 mg PO Q6H PRN (Reason: pain) Qty: 60 RF: 0 ibuprofen 600 mg tablet 600 mg PO TID PRN (Reason: pain) Qty: 60 RF: 0 ondansetron HCl [Zofran] 4 mg tablet 4 mg PO Q8H PRNQty: 10 RF: 0 Discharge Instructions Instructions: Contusion in Adults (ED), Wrist Sprain (ED) Additional Instructions: Rest, ice, and elevate the affected area as much as possible. Alternate tylenol and motrin as needed and directed for pain. Follow-up with your primary care doctor in 1 week. Return to the emergency department with any worsening or new concerning symptoms. Discharge Data Discharge Date/Time-TO BE ENTERED AT DEPARTURE: 12/16/20 20:25 Discharge Physician: Rae Diaz Medical Decision Making 40-year-old female who is 1 month status post gastric bypass at [facility] presents for right arm pain and injury after a dizzy episode and fall down 5 stairs prior to arrival. She states she also hit her head and right leg and back but denies any pain in these areas and has been able to ambulate without pain. She states she came here mainly for the right wrist, forearm and elbow pain. Patient also states she is currently being evaluated and worked up at [facility] for the dizzy episodes and does not want any work-up here for this. She states she is seeing [facility] again next week for this. Her vitals are within normal limits and she has no focal deficits. She denies any complaints of chest pain or headache. She has pain in the right wrist and elbow with palpation and range of motion. She has no deformity. She has neurovascular intact. Will refer for x-rays of right wrist, forearm and elbow and give a dose of Tylenol. All imaging reviewed and negative. Patient requested wrist splint. She declined any Jatin wrap for the elbow. Advised on the importance of RICE. Advised to follow up with the primary care doctor for re-evaluation. Usual and customary return precautions given prior to discharge. Medical Records Medical records reviewed: Yes I reviewed the patient's medical records. Imaging Data Radiologic Study: Radiologist's impression: XR Right Wrist Exam date and time: 12/16/2020 7:25 PM Age: 40 years old Clinical indication: Wrist; Right; Patient HX: Pain. S/P fall TECHNIQUE: Imaging protocol: XR Right wrist. Views: 3 or more views. COMPARISON: No relevant prior studies available. FINDINGS: Bones/joints: No suspicious osseous lytic or blastic lesion. No acute fracture or dislocation. Soft tissues: No focal abnormality. IMPRESSION: No acute fracture or dislocation. XR Right Forearm Exam date and time: 12/16/2020 7:25 PM Age: 40 years old Clinical indication: Lower or forearm; Right; Patient HX: Pain, S/P fall TECHNIQUE: Imaging protocol: XR Right forearm. Views: 2 views. COMPARISON: CR XR ELBOW RT COMPLETE 12/16/2020 7:34 PM FINDINGS: Bones/joints: No suspicious osseous lytic or blastic lesion. No acute fracture or dislocation. Soft tissues: No focal abnormality. IMPRESSION: No acute fracture or dislocation. XR Right Elbow Exam date and time: 12/16/2020 7:25 PM Age: 40 years old Clinical indication: Elbow; Right; Patient HX: Pain, S/P fall TECHNIQUE: Imaging protocol: XR Right elbow. Views: 3 or more views. COMPARISON: CR XR elbow RT complete 02/27/2019 8:55 PM FINDINGS: Bones/joints: No suspicious osseous lytic or blastic lesion. No acute fracture or dislocation. No significant joint effusion. Soft tissues: No focal abnormality.? IMPRESSION: No acute fracture or dislocation. HPI General Mode of arrival: ambulatory . Date/Time Provider Initiated Documentation: 12/16/20 18:57 . Limitations to Documentation: no limitations . Information obtained by: patient . HPI Narrative: Patient is a 40-year-old female who is 1 month status post gastric bypass who presents for right arm injury after fall down 5 stairs. Patient states she had gastric bypass at [facility] last month and has been having intermittent dizzy episodes that occur after vomiting and associated with epigastric pain that is currently being investigated by [facility]. Patient states that she vomited at home and waited approximately 30 minutes and then walked down a few stairs and became dizzy and fell down 5 stairs and wrapped her arm around the lateral rail. She states she also hit the right side of her leg and her back but denies pain in these areas. She states she is mainly complaining of pain in her right elbow and right wrist. She states she also hit her head but denies any headache, LOC or vomiting after this. She has not taken any medication for pain and cannot take ibuprofen. She denies any chest or abdominal pain. She states she has been able to ambulate without pain in her back or legs Related Data Home Medications Medication Instructions Recorded Confirmed albuterol sulfate 2 puff INHALATION QID PRN 10/28/18 12/16/20 loratadine 10 mg PO DAILY PRN 12/18/18 12/16/20 promethazine 25 mg PO Q6H PRN #10 tab 03/09/19 12/16/20 divalproex [Depakote] 250 mg PO BID 05/11/19 12/16/20 pantoprazole 40 mg PO DAILY 05/11/19 12/16/20 docusate sodium 100 mg capsule 100 mg PO DAILY PRN 08/30/19 12/16/20 metoclopramide HCl 10 mg PO Q6H PRN #10 tab 09/20/19 12/16/20 lisinopril 10 mg tablet 10 mg PO DAILY 10/12/19 12/16/20 gabapentin 300 mg capsule 300 mg PO TID 11/27/19 12/16/20 sumatriptan succinate 50 mg tablet See Rx Instructions PO .COMPLEX 11/27/19 12/16/20 loratadine 10 mg PO DAILY #20 cap 04/28/20 12/16/20 acetaminophen 500 mg PO Q6H PRN #60 tab 05/28/20 12/16/20 ibuprofen 600 mg PO TID PRN #60 tab 05/28/20 12/16/20 ondansetron HCl [Zofran] 4 mg PO Q8H PRN #10 tab 07/11/20 12/16/20 methocarbamol 750 mg PO Q8H PRN #10 tab 08/15/20 12/16/20 Previous Rx's Medication Instructions Recorded promethazine 25 mg PO Q6H PRN #10 tab 03/09/19 metoclopramide HCl 10 mg PO Q6H PRN #10 tab 09/20/19 loratadine 10 mg PO DAILY #20 cap 04/28/20 acetaminophen 500 mg PO Q6H PRN #60 tab 05/28/20 ibuprofen 600 mg PO TID PRN #60 tab 05/28/20 ondansetron HCl [Zofran] 4 mg PO Q8H PRN #10 tab 07/11/20 methocarbamol 750 mg PO Q8H PRN #10 tab 08/15/20 Allergies Allergy/AdvReac Type Severity Reaction Status Date / Time amoxicillin Allergy Severe Other (See Unverified 12/16/20 18:59 Comment) artichoke Allergy Severe ANAPHYLAXIS Unverified 12/16/20 18:59 Penicillins Allergy Intermediate HIVES Unverified 12/16/20 18:59 sodium hypochlorite solution Allergy Intermediate HIVES/SOB Unverified 12/16/20 18:59 [sodium hypochlorite] General Stated Complaint: Orthopedic MIKE: 4 Review of Systems All systems reviewed & are unremarkable except as noted in HPI and below Constitutional Constitutional: Reports as per HPI, Denies chills and Denies fever(s) Eyes Eyes: Denies blurry vision ENT Ears, Nose, Mouth, and Throat: Denies dizziness, Denies sore throat and Denies throat swelling Cardiovascular Cardiovascular: Denies chest pain and Denies dyspnea Respiratory Respiratory: Denies cough and Denies dyspnea Gastrointestinal Gastrointestinal: Denies abdominal pain, Denies diarrhea and Denies vomiting Genitourinary Genitourinary: Denies hematuria and Denies dysuria Musculoskeletal Musculoskeletal: Denies back pain and Denies numbness Integumentary/Breasts Skin/Breast: Denies lesions and Denies rash Neurologic Neurologic: Denies dizziness, Denies localized weakness and Denies numbness Allergic/Immunologic Allergic/Immunologic: Denies throat swelling [facility] Medical History (Updated 12/16/20 @ 20:13 by Rae Diaz DO) Anxiety and depression Asthma Diabetes mellitus, type 2 Elevated lipids Migraine Migraine headache without aura CHAPARRO (nonalcoholic steatohepatitis) Obstructive sleep apnea syndrome Polycystic ovaries Surgical History anterior cruciate ligament reconstruction section twice Colonoscopy - MAC (11/26/16) EGD - MAC (11/26/16) Endoscopic Carpal Tunnel release (01/14/09) 09/16/2010 REPEAT ECTR RIGHT Ligation of fallopian tube Open Carpal Tunnel release (10/23/12) RIGHT SIDE, left 8.14.14 Vaginal hysterectomy Social History Smoking/Tobacco Use Status: Former Tobacco Use Quit Date: 08/01/05 Smoking risk assessment performed?: Yes Alcohol Intake: never Drug use: Never Substance use type: does not use Household members: spouse and children Housing: other Details: trailer Current gender identity: female What is your relationship status?: Panel score (0-1 are the most socially isolated patients): 1 Seatbelt use: always Do you feel safe at home: Yes Do you feel safe in your relationship?: Yes Exam Const General: cooperative and no acute distress Orientation: alert, awake and oriented x3 HENMT Head: normal to inspection Face and sinus: normal facial exam Eyes General: appearance normal, both eyes and all related structures EOM: EOM intact bilaterally Neck Neck: normal visual inspection and No submandibular swelling Lymphatic: no lymphadenopathy noted Chest Chest: normal inspection of the chest and no tenderness Resp Effort & Inspection: normal respiratory effort and able to speak in complete sentences Auscultation: clear to auscultation bilaterally Cardio Rate: regular rate Rhythm: regular rhythm GI Inspection: normal to inspection Palpation: soft, not firm, not rigid and nontender Auscultation: normal bowel sounds Back/Spine/Pelvis Cervical Spine: No cervical spinal tenderness Thoracic/Lumbar Spine: thoracic and lumbar spine normal to inspection, surgical scar(s) present (midline lumbar), No thoracic spinal tenderness and No lumbar spinal tenderness Pelvis: no pain with anterior-posterior compression Skin General skin exam: no rashes or lesions noted Neuro General: patient alert, patient awake and patient oriented x3 Cognition: normal cognition Speech: speech normal Motor: muscle tone normal throughout Sensory Exam: no sensory deficits noted Extrem General: normal to inspection, full ROM, capillary refill normal, no calf tenderness bilaterally and no edema Right upper extremity: shoulder/upper arm Details: normal to inspection; no tenderness, no swelling and no deformity, elbow/forearm Details: tenderness Location: of the olecranon, of the lateral epicondyle, of the mid-shaft forearm, proximal forearm and of the medial epicondyle, abnormal ROM Details: held in an abnormal fashion Details: in flexion (close to body) and other (well healed incision scar on medial and lateral aspect), wrist Details: tenderness Location: of the distal radius and of the distal ulna; not of the anatomic snuffbox and abnormal ROM Details: pain with active ROM during Details: with extension and with flexion; no swelling and hand Details: normal to inspection Left upper extremity: normal to inspection and full ROM Right lower extremity: normal to inspection and full ROM Left lower extremity: normal to inspection and full ROM Psych Appearance: grossly normal Mental Status: mental status grossly normal Speech and Movement: speech and movement normal Affect: normal affect Course Vital Signs Vital signs: Vital Signs Temperature 97.3 F L 12/16/20 18:54 Pulse 62 12/16/20 18:54 Respiratory Rate 16 12/16/20 18:54 Blood Pressure 137/75 12/16/20 18:54 Pulse Oximetry 100 12/16/20 18:54 Temperature 97.3 F L 12/16/20 18:54 Temperature Source Temporal Artery Scan 12/16/20 18:54 Pulse 62 12/16/20 18:54 Respiratory Rate 16 12/16/20 18:54 Respiratory Effort 12/16/20 18:58 Blood Pressure 137/75 12/16/20 18:54 Blood Pressure Position Sitting 12/16/20 18:54 Pulse Oximetry 100 12/16/20 18:54 Oxygen Delivery Method Room Air 12/16/20 18:54 Oxygen Flow Rate 0 12/16/20 18:54
--- NOTE | 2020-12-16 19:15 | DI.RAD_ITS ---
Exam(s) XR FOREARM RT EXAM: XR FOREARM RT CLINICAL HISTORY: a/p fall, r/o acute fracture. TECHNIQUE: 2D digital imaging was performed. COMPARISON: No exams were available for comparison FINDINGS: There is no evidence of fracture nor dislocation. Also no elbow joint effusion. No swelling of the olecranon bursa. No radiopaque foreign body seen. IMPRESSION: DATA REPOSITORY: RADIATION DOSE DELIVERED:
--- NOTE | 2020-12-16 19:15 | DI.RAD_ITS ---
Exam(s) XR WRIST RT COMPLETE EXAM: XR WRIST RT COMPLETE CLINICAL HISTORY: s/p fall, r/o acute fracture. TECHNIQUE: 2D digital imaging was performed. COMPARISON: No exams were available for comparison FINDINGS: There is no evidence of fracture nor dislocation nor abnormal soft tissue densities. No erosions. N o radiopaque foreign body. Mild negative ulnar variance. IMPRESSION: DATA REPOSITORY: RADIATION DOSE DELIVERED:
--- NOTE | 2020-12-16 19:15 | DI.RAD_ITS ---
Exam(s) XR ELBOW RT COMPLETE EXAM: XR ELBOW RT COMPLETE CLINICAL HISTORY: s/p fall, r/o acute fracture. TECHNIQUE: 2D digital imaging was performed. COMPARISON: CR XR elbow RT complete from 02/27/2019 FINDINGS: No evidence of acute fracture or joint effusion or swelling of the olecranon bursa. Radial head appe ars unremarkable. Some cortical findings are seen at the lateral epicondyle which may be associated with epicondylitis. No lytic osseous lesions evident. IMPRESSION: No fracture or joint effusion. DATA REPOSITORY: RADIATION DOSE DELIVERED:
[2020-12-16] MEDS: Acetaminophen 325 MG TAB 650 MG PO (19:29)
--- NOTE | 2020-12-16 19:59 | DI.VRAD_ITS ---
PROCEDURE INFORMATION: Exam: XR Right Wrist Exam date and time: 12/16/2020 7:25 PM Age: 40 years old Clinical indication: Wrist; Right; Patient HX: Pain. S/P fall TECHNIQUE: Imaging protocol: XR Right wrist. Views: 3 or more views. COMPARISON: No relevant prior studies available. FINDINGS: Bones/joints: No suspicious osseous lytic or blastic lesion. No acute fracture or dislocation. Soft tissues: No focal abnormality. IMPRESSION: No acute fracture or dislocation. Dictated and Authenticated by: Bhavin Barrera MD. Ordering:ANTHONY Mcbride MD
--- NOTE | 2020-12-16 20:00 | DI.VRAD_ITS ---
PROCEDURE INFORMATION: Exam: XR Right Forearm Exam date and time: 12/16/2020 7:25 PM Age: 40 years old Clinical indication: Lower or forearm; Right; Patient HX: Pain, S/P fall TECHNIQUE: Imaging protocol: XR Right forearm. Views: 2 views. COMPARISON: CR XR ELBOW RT COMPLETE 12/16/2020 7:34 PM FINDINGS: Bones/joints: No suspicious osseous lytic or blastic lesion. No acute fracture or dislocation. Soft tissues: No focal abnormality. IMPRESSION: No acute fracture or dislocation. Dictated and Authenticated by: Bhavin Barrera MD. Ordering:ANTHONY Mcbride MD
--- NOTE | 2020-12-16 20:00 | DI.VRAD_ITS ---
PROCEDURE INFORMATION: Exam: XR Right Elbow Exam date and time: 12/16/2020 7:25 PM Age: 40 years old Clinical indication: Elbow; Right; Patient HX: Pain, S/P fall TECHNIQUE: Imaging protocol: XR Right elbow. Views: 3 or more views. COMPARISON: CR XR elbow RT complete 02/27/2019 8:55 PM FINDINGS: Bones/joints: No suspicious osseous lytic or blastic lesion. No acute fracture or dislocation. No significant joint effusion. Soft tissues: No focal abnormality. IMPRESSION: No acute fracture or dislocation. Dictated and Authenticated by: Bhavin Barrera MD. Ordering:ANTHONY Mcbride MD
== END 2020-12-16 20:25 | disposition home or self-care (01) ==
PROVIDERS: Emergency Provider Physician Assistant; PCP Nurse Practitioner Family
DX: S63.591A Other specified sprain of right wrist, initial encounter (principal); S53.491A Other sprain of right elbow, initial encounter; S50.11XA Contusion of right forearm, initial encounter; W10.8XXA Fall (on) (from) other stairs and steps, initial encounter
CPT/HCPCS: 99284; 73080; 73090; 73110; 99283

== ENCOUNTER 2021-01-06 18:10 | Outpatient (REF) | payer MEDICAID, SELFPAY ==
[2021-01-06 21:37] LABS: ALT 80 U/L (14-59); AST 53 U/L (15-37); Albumin 4.1 g/dL (3.4-5.0); Alkaline Phosphatase 96 U/L (46-116); Anion Gap 10.2 mmol/L (3-11); BUN 8 mg/dL (7-18); Bilirubin, Total 0.4 mg/dL (0.2-1.0); CO2 27.8 mmol/L (21.0-32.0); CREATININE 0.7 mg/dL (0.55-1.02); Calcium 9.5 mg/dL (8.5-10.1); Chloride 107 mmol/L (98-107); Glucose 122 mg/dL (74-106); Potassium 3.4 mmol/L (3.5-5.1); Sodium 145 mmol/L (136-145); Total Protein 7.8 g/dL (6.4-8.2)
== END 2021-01-06 18:11 | disposition home or self-care (01) ==
LOC: LBN 18:10
PROVIDERS: PCP Nurse Practitioner Family; Visit Provider Nurse Practitioner Family
DX: R10.9 Unspecified abdominal pain (principal)
CPT/HCPCS: 80053; 85025

== ENCOUNTER 2021-01-21 13:44 | Observation (INO) | payer MEDICAID, SELFPAY ==
[2021-01-21] VITALS (44 sets, daily range): BP systolic 79–138; BP diastolic 42–79; PULSE 42–71; RESP 9–25; TEMP 36.4–36.5; O2SAT 96–100
--- NOTE | 2021-01-21 15:15 | RT.EKG_ITS ---
APPROVED REPORT Exam: Resting ECG Reason for Exam: vomiting Patient Location: E HR:44 bpm ECG Measurements Heart Rate 44 AXIS AR 164 P -3 QRSd 106 QRS -9 QT 476 T 3 QTc 407 Conclusion Sinus bradycardia...rate< 60 Low voltage, precordial leads...precordial leads <1.0mV
--- NOTE | 2021-01-21 15:15 | DI.CT_ITS ---
Exam(s) CT THORACIC LUMBAR SPINE WO EXAM: CT THORACIC LUMBAR SPINE WO CLINICAL HISTORY: fall down 6 stairs, pain rt coccyx radiating up. TECHNIQUE: Imaging Protocol: Axial computed tomography images with coronal and sagittal reformatted images were created and reviewed. CONTRAST MATERIAL: Intravenous: None COMPARISON: CT CERVICAL SPINE WITHOUT CONTRA from 02/24/2017 FINDINGS: THORACIC SPINE: No evidence compression fractures nor listhesis. There is some mild posterior bony r idging at multiple levels which slightly indent the thecal sac. However, there is no tight spinal ca nal stenosis in the thoracic spinal column. No obvious acute appearing disc herniations. No signifi cant foraminal stenosis. No osseous lesions. Incidentally noted are few multilevel shallow Schmorl' s node invagination is at the endplate levels. No associated compression fractures. LUMBAR SPINE: There is evidence of prior surgery-laminectomy and posterior fusion at L5-S1 level. Th e intra pedicular screws appear to be in satisfactory position relative to the superior endplates. D isc space divide ower is noted without evidence of retropulsion. No evidence of fracture or listhesi s. No facet malalignment. No significant disc space narrowing. Visualized sacroiliac joints appear unremarkable. Defect in the right iliac bone which is probably donor site. No significant findings in the sacral canal. No significant disc herniations. No prominent central canal stenosis. OTHER: Uterus is surgically absent. No obvious adnexal masses. IMPRESSION: 1. No acute findings in the thoracic spinal column. 2. No acute findings in the lumbar spinal column. 3. L5-S1 fusion surgery noted. No hardware fracture. No obvious loosening. RADIATION DOSE DELIVERED: 1,351.94mGy.cm Total DLP DATA REPOSITORY: All CT scans at this facility are submitted to the National Radiology Data Registry (NRDR) Dose Index Registry (DIR) with the [employer] ([employer]). RADIATION OPTIMIZATION: All CT scans at this facility use at least one of these dose optimization te chniques: automated exposure control; mA and/or kV adjustment per patient size (includes targeted exa ms where dose is matched to clinical indication); or iterative reconstruction.
--- NOTE | 2021-01-21 15:15 | DI.CT_ITS ---
Exam(s) CT ABDOMEN PELVIS W EXAM: CT ABDOMEN PELVIS W CLINICAL HISTORY: 2-3mo s/p gastric bypass, vomit daily, hematemsis. TECHNIQUE: Imaging Protocol: Axial computed tomography images with coronal and sagittal reformatted images were created and reviewed CONTRAST MATERIAL: Intravenous: Omnipaque 100cc Oral: None COMPARISON: CT RENAL COLIC WO CONTRAST from 09/09/2017 CT ABD PELVIS WITH CONTRAST from 03/25/2018 CT ABD PELVIS WITH CONTRAST from 03/25/[address] ABDOMEN PELVIS W from 12/18/2018 FINDINGS: VISUALIZED LUNG BASES: No nodules nor pleural effusions evident. ABDOMEN: There is evidence of interval gastric surgery, probably bariatric; gastric sleeve-type. Cannot ident rony a Robert limb. There is no bowel obstruction. No mesenteric swirl sign evident and no evidence of thrombosis of the superior mesenteric vein (which is a concerning possible complication associated w ith gastric sleeve bariatric surgery). There is, however, mild increased focal density in the anteri or left mesentery behind the left rectus abdominus muscle which was not evident in November 2018. There i s no free air and there is no drainable abscess at this level. The adjacent small bowel loops do not appear edematous. There is no evidence of hematoma and overlying left rectus abdominus muscle. LIVER: Liver is hypodense implying steatosis. There are no ominous discrete focal hepatic lesions no r dilatation of intrahepatic ducts. GALLBLADDER/BILIARY: Small density in the gallbladder neck may be a septum. No obvious calcified gal lstones. No gallbladder wall edema nor pericholecystic fluid. CBD is not dilated. PANCREAS: No evidence of pancreatic mass nor dilatation of the pancreatic duct. SPLEEN: Spleen size remains normal. This contrast infused study reveals multiple defined hypodensiti es within the spleen, similar to the previous studies. These are not simple cysts and may represent small hemangiomas or other unchanged pathology. Splenic and portal veins are patent. 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 Right adrenal gland remains unremarkable. KIDNEYS:There is a small cyst in the medial aspect of the left kidney which measures 8 millimeters, u nchanged. No other focal renal findings. No hydronephrosis. No solid renal masses. No calculi nor hydronephrosis.. ABDOMINAL AORTA: Abdominal aorta is not enlarged. LYMPH NODES:There is no retroperitineal nor paraaortic adenopathy. ABDOMINAL WALL: No evidence of significant anterior abdominal wall hernia. GI: There is no evidence of bowel obstruction, free air, nor abscess. PELVIS: GI: No evidence of appendicitis.No evidence of sigmoid diverticulitis. LYMPH NODES: There is no intrapelvic nor inguinal adenopathy. REPRODUCTIVE: Uterus is surgically absent. No abnormal adnexal masses. No free fluid in the pelvis. URINARY BLADDER: No calculi nor obvious masses evident OSSEOUS: Again noted is evidence of fusion surgery in the lower lumbar spine. Also donor site in the right iliac bone IMPRESSION: 1. In this patient who has had prior gastric sleeve bariatric surgery there is no evidence of bowel o bstruction nor thrombosis of the superior mesenteric vein. No mesenteric swirl sign. However, in th e anterior left mesentery (behind the left rectus abdominus muscle) there is abnormal streaking in of the mesentery, not associated with a drainable fluid collection nor edema in the adjacent bowel loop s. However, this was not present on the most recent CT scan and therefore acquires close follow-up. 2. Hepatic steatosis again noted. No discrete focal hepatic lesions. 3. Multiple hypodensities in the spleen are unchanged from prior studies. Most probably represents b enign or indolent process, given the lack of change. 4. Unchanged small benign-appearing myelolipoma of the left adrenal. 5. The uterus is surgically absent. No abnormal adnexal masses nor free fluid in the pelvis. 6. In surgery again noted in the lower lumbar spine. This study 1st read by [facility] My final report was called to the emergency room 01/22/2021 RADIATION DOSE DELIVERED: 1,027.71mGy.cm Total DLP DATA REPOSITORY: All CT scans at this facility are submitted to the National Radiology Data Registry (NRDR) Dose Index Registry (DIR) with the [employer] (A[employer]). RADIATION OPTIMIZATION: All CT scans at this facility use at least one of these dose optimization te chniques: automated exposure control; mA and/or kV adjustment per patient size (includes targeted exa ms where dose is matched to clinical indication); or iterative reconstruction.
--- NOTE | 2021-01-21 15:27 | W.ED.GENAD ---
Discharge Plan Disposition Patient Disposition: [facility] INPATIENT Condition: Fair Discharge Details Clinical Impression: Bradycardia, Vomiting Admit Date/Time: 01/21/21 19:39 Admit Provider: Rodrigo Garland Attending Provider: Rodrigo Garland Primary Care Provider: Ned Ibarra ED Provider: Jeanmarie Angel Discharge Data Discharge Date/Time-TO BE ENTERED AT DEPARTURE: 01/21/21 20:19 Medical Decision Making 1534 -- 40yo f presents 2-3 months s/p gastric bypass with vomiting 3-4x daily and new hematemsis today. Consider postoperative complication. Patient also s/p remote spinal fusion/juancho placement with back pain 3 days after fall down stairs. Consider fracture of sacral spine vs hardware compromise. Will CT thoracic/lumbar spine. Suspect fall related to orthostatic hypotension given preceding history but patient is bradycardic here today in upper 40s. --Notified by nursing that patient had an episode of severe dizziness and felt like she was in a pass out while she was lying at rest. Rhythm strip noted she had a heart rate in the low 40s. 1926 --CT the abdomen pelvis was interpreted by radiology: Stable CT, no acute findings, no bowel obstruction. Bones note status post posterior fusion at the L4-L5 level with associated spacer. CT of the thoracic spine interpreted by radiology: No acute fracture. CT of the lumbar spine interpreted by radiology: No acute fracture. Patient reassessed remains bradycardic in the mid 40s. Plan will be to hospitalize for cardiac monitoring and serial labs. HPI General Mode of arrival: ambulatory. Date/Time Provider Initiated Documentation: 01/21/21 13:57. Limitations to Documentation: no limitations. Information obtained by: patient. HPI Narrative: 32yo f 2-3 mo s/p gastric bypass here with chief complaint of hematemesis. Patient states that she has been vomiting 3-4x per day since gastric bypass. Today she vomited small amount of red blood clumps. She denies associated abdominal pain. She has had loose stool since procedure. Patient also notes back pain. She states that 3 days ago she felt dizzy after standing from seated/lying position on couch and lost her foot and fell down 6 stairs. She did not loose consciousness and did not hit her head. She did impact her tailbone on stairs. She has had pain in tailbone since fall. Pain is moderate to severe and radiates superiorly up to mid thoracic spine. Intermittent tingling paresthesias radiate down lateral right leg. No associated weakness. No bowel or bladder dysfunction. Patient notes history of prior back rods. Related Data Home Medications Medication Instructions Recorded Confirmed albuterol sulfate 2 puff INHALATION QID PRN 10/28/18 01/21/21 divalproex [Depakote] 250 mg PO BID 05/11/19 01/21/21 pantoprazole 40 mg PO DAILY 05/11/19 01/21/21 docusate sodium 100 mg capsule 100 mg PO DAILY PRN 08/30/19 01/21/21 lisinopril 10 mg tablet 10 mg PO DAILY 10/12/19 01/21/21 gabapentin 300 mg capsule 300 mg PO TID 11/27/19 01/21/21 sumatriptan succinate 50 mg tablet See Rx Instructions PO .COMPLEX PRN 11/27/19 01/21/21 acetaminophen 500 mg PO Q6H PRN #60 tab 05/28/20 01/21/21 ondansetron HCl [Zofran] 4 mg PO Q8H PRN #10 tab 07/11/20 01/21/21 methocarbamol 750 mg PO Q8H PRN #10 tab 08/15/20 01/21/21 atorvastatin 40 mg PO HS 01/21/21 01/21/21 biotin 1 mg PO DAILY 01/21/21 01/21/21 loratadine 10 mg PO DAILY PRN 01/21/21 01/21/21 magnesium L-lactate [Magtab] 84 mg PO DAILY 01/21/21 01/21/21 multivitamin 1 tab PO DAILY 01/21/21 01/21/21 Previous Rx's Medication Instructions Recorded acetaminophen 500 mg PO Q6H PRN #60 tab 05/28/20 ondansetron HCl [Zofran] 4 mg PO Q8H PRN #10 tab 07/11/20 methocarbamol 750 mg PO Q8H PRN #10 tab 08/15/20 Allergies Allergy/AdvReac Type Severity Reaction Status Date / Time amoxicillin Allergy Severe Other (See Unverified 12/16/20 18:59 Comment) artichoke Allergy Severe ANAPHYLAXIS Unverified 12/16/20 18:59 Penicillins Allergy Intermediate HIVES Unverified 05/18/21 18:59 sodium hypochlorite solution Allergy Intermediate HIVES/SOB Unverified 12/16/20 18:59 [sodium hypochlorite] General Stated Complaint: Nausea/Vomit/Diar MIKE: 3 Review of Systems All systems reviewed & are unremarkable except as noted in HPI and below Constitutional Constitutional: Denies fever(s) Musculoskeletal Musculoskeletal: Reports as per HPI [facility] Medical History Anxiety and depression Asthma Diabetes mellitus, type 2 Elevated lipids Migraine Migraine headache without aura CHAPARRO (nonalcoholic steatohepatitis) Obstructive sleep apnea syndrome Polycystic ovaries Seizure disorder Surgical History anterior cruciate ligament reconstruction section twice Colonoscopy - MAC (11/26/16) EGD - MAC (11/26/16) Endoscopic Carpal Tunnel release (01/14/09) 09/16/2010 REPEAT ECTR RIGHT Ligation of fallopian tube Open Carpal Tunnel release (10/23/12) RIGHT SIDE, left 8.14.14 Vaginal hysterectomy Social History Smoking/Tobacco Use Status: Former Tobacco Use Quit Date: 08/01/05 Smoking risk assessment performed?: Yes Alcohol Intake: never Drug use: Never Substance use type: does not use Household members: spouse and children Housing: other Details: trailer Current gender identity: female What is your relationship status?: Panel score (0-1 are the most socially isolated patients): 1 Seatbelt use: always Do you feel safe at home: Yes Do you feel safe in your relationship?: Yes Exam Const General: cooperative and no acute distress [facility] Head: normocephalic and atraumatic Mouth: moist mucous membranes Eyes Conjunctivae: normal conjunctivae Sclera: normal sclerae Neck Neck: trachea midline and supple Resp Auscultation: clear to auscultation bilaterally, no rales, no rhonchi and no wheezes Cardio Rhythm: regular rhythm GI Palpation: soft, not firm, no guarding, no masses, not rigid and nontender Back/Spine/Pelvis Cervical Spine: cervical ROM normal, No cervical spinal tenderness and No step off deformity Thoracic/Lumbar Spine: thoracic spinal tenderness (right of midline) and lumbar spinal tenderness (right of midline) Coccyx: tenderness Skin General skin exam: no rashes or lesions noted Neuro General: patient alert, patient awake, patient oriented x3 and tone normal Cognition: normal cognition Speech: speech normal Motor: strength 5/5 throughout (bilateral LEs) Sensory Exam: no sensory deficits noted (bilateral LEs) Extrem General: no edema Psych Appearance: grossly normal Mental Status: mental status grossly normal Speech and Movement: speech and movement normal Course Vital Signs Vital signs: Vital Signs Temperature 36.5 C 01/21/21 14:54 Pulse 50 L 01/21/21 14:54 Respiratory Rate 12 01/21/21 14:54 Blood Pressure 123/79 01/21/21 14:54 Pulse Oximetry 98 01/21/21 14:54 Temperature 36.5 C 01/21/21 14:54 Temperature Source Skin 01/21/21 14:54 Pulse 50 L 01/21/21 14:54 Respiratory Rate 12 01/21/21 14:54 Respiratory Effort Non-Labored 01/21/21 15:00 Blood Pressure 123/79 01/21/21 14:54 Blood Pressure Position Sitting 01/21/21 14:54 Pulse Oximetry 98 01/21/21 14:54 Oxygen Delivery Method Room Air 01/21/21 14:54 Oxygen Flow Rate 0 01/21/21 14:54 Pain Level 10 01/21/21 14:54 Comment 01/21/21 14:54
[2021-01-21 16:02] LABS: Abs Immature Grans 0.02 10^3/uL (0.0-0.06); Absolute Basophil Count 0.04 10^3/uL (0.0-0.2); Absolute Eosinophil Count 0.03 10^3/uL (0.0-0.7); Absolute Lymphocyte Count 3.12 10^3/uL (1.2-3.4); Absolute Monocyte Count 0.52 10^3/uL (0.1-0.8); Absolute Neutrophil Count 5.43 10^3/uL (1.2-6.7); Basophils % 0.4; Eosinophils % 0.3; HCT 40.5 % (36.0-46.0); HGB 13.3 g/dL (11.2-15.7); Immature Grans % 0.2; Lymphocytes % 34.1; MCH 28.2 pg (27.0-33.0); MCHC 32.8 % (32.0-36.0); MPV 11.5 fL (8.0-11.0); Monocytes % 5.7; Neutrophils % 59.3; Nucleated RBC 0 %; Platelet Count 258 10^3/uL (130-400); RBC 4.71 10^6/uL (3.93-5.22); RDW 12.5 % (11.7-14.6); RDW-SD 39.6 fL; WBC 9.16 10^3/uL (4.4-10.8)
[2021-01-21 16:23] LABS: ALT 62 U/L (14-59); AST 35 U/L (15-37); Albumin 4.4 g/dL (3.4-5.0); Alkaline Phosphatase 89 U/L (46-116); Anion Gap 9.3 mmol/L (3-11); BUN 9 mg/dL (7-18); Bilirubin, Total 0.6 mg/dL (0.2-1.0); CO2 28.7 mmol/L (21.0-32.0); CREATININE 0.7 mg/dL (0.55-1.02); Calcium 9.8 mg/dL (8.5-10.1); Chloride 105 mmol/L (98-107); Glucose 95 mg/dL (74-106); Potassium 3.6 mmol/L (3.5-5.1); Sodium 143 mmol/L (136-145); Total Protein 8.4 g/dL (6.4-8.2)
[2021-01-21 16:27] LABS: Magnesium 2.1 mg/dL (1.8-2.4); TSH (W/Ref FT4) 0.65 uIU/mL (0.36-3.74)
[2021-01-21 16:32] LABS: Lipase 135 U/L (73-393)
[2021-01-21] MEDS: Normal Saline - Diluent 50 ML VIAL IV (17:04)
--- NOTE | 2021-01-21 18:04 | DI.VRAD_ITS ---
PROCEDURE INFORMATION: Exam: CT Abdomen And Pelvis With Contrast Exam date and time: 01/21/2021 4:56 PM Age: 40 years old Clinical indication: Vomiting; Prior surgery; Surgery date: 1-6 months; Surgery type: Gastric bypass TECHNIQUE: Imaging protocol: Computed tomography of the abdomen and pelvis with contrast. Total images: 1360 Radiation optimization: All CT scans at this facility use at least one of these dose optimization techniques: automated exposure control; mA and/or kV adjustment per patient size (includes targeted exams where dose is matched to clinical indication); or iterative reconstruction. Contrast material: OMNI 350; Contrast volume: 100 ml; Contrast route: INTRAVENOUS (IV); COMPARISON: 1. CT ABDOMEN PELVIS W 12/18/2018 9:[address] ABD PELVIS WITH CONTRAST 03/25/2018 2:57 PM FINDINGS: Lungs: Lung bases are unremarkable. Liver: Mild hepatic steatosis. Gallbladder and bile ducts: No calcified stones, wall thickening or biliary dilatation. Pancreas: No mass or peripancreatic edema. Spleen: There are multiple hypodense nodules again noted within the spleen. No splenomegaly. Adrenal glands: No adrenal nodule. Kidneys and ureters: Kidneys homogeneously enhance. No hydronephrosis. No renal or ureteral calculi. Stomach and bowel: Status post gastric bypass. No inflammatory changes identified in the region of anastomoses. No colonic wall thickening or pericolonic inflammation. No small bowel dilatation. Appendix: No evidence of appendicitis. Intraperitoneal space: No free air or free fluid. Vasculature: No abdominal aortic aneurysm. Lymph nodes: No significant adenopathy. Urinary bladder: No definite bladder wall thickening. Reproductive: Unremarkable as visualized. Bones/joints: Status post a posterior fusion at the L4-L5 level with associated disc spacer. Soft tissues: Extra-abdominal soft tissues are unremarkable. IMPRESSION: Stable CT. No acute findings. No bowel obstruction Dictated and Authenticated by: Omuar Carrera MD. Ordering:UNIQUE Murry MD
--- NOTE | 2021-01-21 18:40 | DI.VRAD_ITS ---
Addendum created by Oumar Carrera MD on 01/21/2021 6:51:27 PM EDT: Additional images obtained. Initial report created on 01/21/2021 6:40:01 PM EDT: PROCEDURE INFORMATION: Exam: CT Thoracic Spine Without Contrast Exam date and time: 01/21/2021 3:26 PM Age: 40 years old Clinical indication: Injury or trauma; Fall; Blunt trauma (contusions or hematomas) TECHNIQUE: Imaging protocol: Computed tomography images of the thoracic spine without contrast. Total images: 2850 COMPARISON: CR XR THORACIC SPINE COMPLETE 05/26/2019 8:33 PM FINDINGS: Vertebrae: Mild thoracic dextroscoliosis. No compression fracture. Posterior elements are intact. Discs/Spinal canal/Neural foramina: There are endplate osteophytes mildly narrowing the anterior thecal sac at several levels. Soft tissues: No paraspinal mass. IMPRESSION: No acute fracture. Prior PROCEDURE INFORMATION: Exam: CT Lumbar Spine Without Contrast Exam date and time: 01/21/2021 3:26 PM Age: 40 years old Clinical indication: Injury or trauma; Fall; Blunt trauma (contusions or hematomas) TECHNIQUE: Imaging protocol: Computed tomography images of the lumbar spine without contrast. COMPARISON: CR XR THORACIC SPINE COMPLETE 05/26/2019 8:33 PM FINDINGS: Vertebrae: Lower lumbar laminectomy, posterior fusion and disc spacer. No compression fracture. Discs/Spinal canal/Neural foramina: No significant disc protrusion. No severe spinal canal stenosis. No significant neural foraminal narrowing. Other bones/joints: Postsurgical changes involving the right iliac bone. Soft tissues: No paraspinal mass. IMPRESSION: No acute fracture. Dictated and Authenticated by: Oumar Carrera MD. Ordering:UNIQUE Murry MD
[2021-01-21 20:06] LABS: Source Nasal/Nares
[2021-01-21 20:57] LABS: VALPROIC ACID < 3 ug/mL (50-100)
--- NOTE | 2021-01-21 21:19 | HPE_ITS ---
Date of service: 01/21/21 Time of Service: 21:19 Assessment and Plan Assessment and plan (1) Sinus bradycardia: Status: Acute Assessment and plan: unclear etiology. At first I thought that this may be medication effect as her home meds listed reglan and phenergan; both which can cause bradycardia however, I reconciled her meds and she is not taking either one. While increased vasovagal tone w/ protracted wretching can cause bradycardia, she has not vomited since 11 a.m. and is not currently nauseous. Her EKG did not show acute ischemic changes; she has had CP but only during protracted episodes of wretching. I will ask cardiology to see her in the a.m. She may need a cardiac event recorder upon discharge. (2) Hematemesis: Status: Acute Assessment and plan: I suspect that she probably had a Anu Perez tear w/ the protracted vomiting. I have doubled up her Protonix. She is suppose to follow up w/ her GI surgeon to have an EGD. If her hemoglobin does not drop overnight, then I think that she can be released for folllow up EGD as outpatient. I will add carafate to her regimen as well. Treat nausea w/ zofran. Qualifiers: Nausea presence: with nausea Qualified Code(s): K92.0 - Hematemesis (3) Vomiting: Status: Acute Assessment and plan: as above Qualifiers: Vomiting type: hematemesis Nausea presence: with nausea Qualified Code(s): K92.0 - Hematemesis History of Present Illness History of Present Illness Chief Complaint: hematemesis, dizziness Narrative: 40 yr old female w/ PMH obesity, DM type 2, HLD, HTN, seizure disorder, PCO who [place]12[place] [facility] [place] Grove but has had daily nausea and vomiting. She says that she can usually keep down liquids and a few things such as cucumbers or jello or watermelon but can not eat any solids. She was suppose to follow up w/ her surgeon for an EGD. She has been on Protonix for suspected GERD. However, today she had a bout of emesis w/ some bright red blood clots which prompted her to present to the ER. She also has been experiencing lightheadedness but no syncope. She states that she fell down 5 stairs 3 days ago but did not lose consciousness and did not strike her head. She says that she fell backwards on her lower back and buttocks and slid down the stairs. Evaluation in the ER included routine labs including CBC, CMP, lipase, magnesium, TSH, SARS-CoV2 nares PCR (negative) and valproic acid level. All of h er labs were unremarkable. CT of her abdomen and pelvis were performed w/ contrast which was unremarkable (no obstruction and no inflammation around her gastric bypass). CT of her thoracic and lumbar spine was done d/t her recent fall and showed no fractures and stable fusion and lower lumbar laminectomy. Cardiac monitoring and EKG demonstrated persistent sinus bradycardia w/ HR in the 40's but no AV block. Review of Systems Constitutional Constitutional: Reports as per HPI Eyes Eyes: Reports system reviewed and no additional complaints, except as documented ENT Ears, Nose, Mouth, and Throat: Reports system reviewed and no additional complaints, except as documented Cardiovascular Cardiovascular: Reports chest pain (only w/ protracted vomiting) Respiratory Respiratory: Reports system reviewed and no additional complaints, except as documented Gastrointestinal Gastrointestinal: Reports as per HPI Genitourinary Genitourinary: Reports system reviewed and no additional complaints, except as documented Musculoskeletal Musculoskeletal: Reports back pain Integumentary/Breasts Skin/Breast: Reports system reviewed and no additional complaints, except as documented Neurologic Neurologic: Reports system reviewed and no additional complaints, except as documented Psychiatric Psychiatric: Reports system reviewed and no additional complaints, except as documented Endocrine Endocrine: Reports system reviewed and no additional complaints, except as documented Hematologic/Lymphatic Hematologic/Lymphatic: Reports system reviewed and no additional complaints, except as documented Allergic/Immunologic Allergic/Immunologic: Reports system reviewed and no additional complaints, except as documented [facility] Medical History (Updated 01/21/21 @ 22:32 by Rodrigo Garland) Anxiety and depression Asthma Diabetes mellitus, type 2 Elevated lipids Migraine Migraine headache without aura CHAPARRO (nonalcoholic steatohepatitis) Obstructive sleep apnea syndrome Polycystic ovaries Surgical History anterior cruciate ligament reconstruction section twice Colonoscopy - MAC (11/26/16) EGD - MAC (11/26/16) Endoscopic Carpal Tunnel release (01/14/09) 09/16/2010 REPEAT ECTR RIGHT Ligation of fallopian tube Open Carpal Tunnel release (10/23/12) RIGHT SIDE, left 8.14.14 Vaginal hysterectomy Social History Smoking/Tobacco Use Status: Former Tobacco Use Quit Date: 08/01/05 Smoking risk assessment performed?: Yes Alcohol Intake: never Drug use: Never Substance use type: does not use Household members: spouse and children Housing: other Details: trailer Current gender identity: female What is your relationship status?: Panel score (0-1 are the most socially isolated patients): 1 Seatbelt use: always Do you feel safe at home: Yes Do you feel safe in your relationship?: Yes Meds Allergies and Home Medications Allergies Allergy/AdvReac Type Severity Reaction Status Date / Time amoxicillin Allergy Severe Other (See Unverified 12/16/20 18:59 Comment) artichoke Allergy Severe ANAPHYLAXIS Unverified 12/16/20 18:59 Penicillins Allergy Intermediate HIVES Unverified 12/16/20 18:59 sodium hypochlorite solution Allergy Intermediate HIVES/SOB Unverified 12/16/20 18:59 [sodium hypochlorite] Home Medications Medication Instructions Recorded Confirmed Type albuterol sulfate 2 puff INHALATION QID PRN 10/28/18 01/21/21 History divalproex [Depakote] 250 mg PO BID 05/11/19 01/21/21 History pantoprazole 40 mg PO DAILY 05/11/19 01/21/21 History docusate sodium 100 mg capsule 100 mg PO DAILY PRN 08/30/19 01/21/21 History lisinopril 10 mg tablet 10 mg PO DAILY 10/12/19 01/21/21 History gabapentin 300 mg capsule 300 mg PO TID 11/27/19 01/21/21 History sumatriptan succinate 50 mg tablet See Rx Instructions PO .COMPLEX PRN 11/27/19 01/21/21 History acetaminophen 500 mg PO Q6H PRN #60 tab 05/28/20 01/21/21 Rx ondansetron HCl [Zofran] 4 mg PO Q8H PRN #10 tab 07/11/20 01/21/21 Rx methocarbamol 750 mg PO Q8H PRN #10 tab 08/15/20 01/21/21 Rx atorvastatin 40 mg PO HS 01/21/21 01/21/21 History biotin 1 mg PO DAILY 01/21/21 01/21/21 History loratadine 10 mg PO DAILY PRN 01/21/21 01/21/21 History magnesium L-lactate [Magtab] 84 mg PO DAILY 01/21/21 01/21/21 History multivitamin 1 tab PO DAILY 01/21/21 01/21/21 History Exam Narrative Exam Narrative: Pleasant young white female alert and oriented x 3 HEENT: poor dentition w/ loss of enamel, oropharynx w/ out exudates, moist mucous membranes Neck: supple, soft, nontender w/ no JVD, carotids w/ bradycardia but regular w/o bruits; thyroid w/out enlargement Lungs: clear Heart: bradycardia, no murmur or rub or gallop; no heave Abdomen: multiple small healed surgical laparoscopy wounds, soft, nondistended, nontender Extremities: w/out edema or cyanosis; normal pedal pulses Skin: multiple tatoos over back and legs Back/spine: nontender to palpation; no bruising Results Labs Result diagrams: 01/21/21 15:45 01/21/21 15:45 Labs: Laboratory Results - last 24 hr 01/21/21 01/21/21 01/21/21 15:45 15:45 15:45 WBC 9.16 RBC 4.71 Hgb 13.3 Hct 40.5 MCV 86.0 MCH 28.2 MCHC 32.8 RDW 12.5 Plt Count 258 MPV 11.5 H Immature Gran % 0.2 Neutrophils % 59.3 Lymphocytes % 34.1 Monocytes % 5.7 Eosinophils % 0.3 Basophils % 0.4 Nucleated RBC % 0 Absolute Neutrophils 5.43 Absolute Lymphocytes 3.12 Absolute Monocytes 0.52 Absolute Eosinophils 0.03 Absolute Basophils 0.04 Sodium 143 Potassium 3.6 Chloride 105 Carbon Dioxide 28.7 Anion Gap 9.3 BUN 9 Creatinine 0.7 Estimated GFR/1.73 m2 >= 60.00 Glucose 95 Calcium 9.8 Magnesium 2.1 Total Bilirubin 0.6 AST 35 ALT 62 H Alkaline Phosphatase 89 Total Protein 8.4 H Albumin 4.4 Lipase 135 TSH 0.65 Valproic Acid COVID-19 Source 01/21/21 01/21/21 15:45 20:01 WBC RBC Hgb Hct MCV MCH MCHC RDW Plt Count MPV Immature Gran % Neutrophils % Lymphocytes % Monocytes % Eosinophils % Basophils % Nucleated RBC % Absolute Neutrophils Absolute Lymphocytes Absolute Monocytes Absolute Eosinophils Absolute Basophils Sodium Potassium Chloride Carbon Dioxide Anion Gap BUN Creatinine Estimated GFR/1.73 m2 Glucose Calcium Magnesium Total Bilirubin AST ALT Alkaline Phosphatase Total Protein Albumin Lipase TSH Valproic Acid < 3 L COVID-19 Source Nasal/Nares Last Vital Signs Temp 36.4 C L 01/21/21 20:34 Pulse 48 L 01/21/21 20:34 Resp 18 01/21/21 20:34 BP 119/61 01/21/21 20:34 Pulse Ox 98 01/21/21 20:34
[2021-01-21 21:22] LABS: COVID-19 PCR Negative (Negative)
[2021-01-21] MEDS: Gabapentin 300 MG CAP PO (21:34)
[2021-01-21] MEDS: Divalproex 250 MG TABEC PO (21:34)
[2021-01-21] MEDS: Atorvastatin 40 MG TAB PO (21:34)
[2021-01-21] MEDS: Pantoprazole 40 MG TABCR PO (21:35)
[2021-01-21 22:40] LABS: Troponin I < 0.05 ng/mL (<0.06)
[2021-01-22] VITALS (11 sets, daily range): BP systolic 103–139; BP diastolic 63–80; PULSE 41–61; RESP 16–19; TEMP 35.4–36.5; O2SAT 97–100
[2021-01-22 07:02] LABS: Abs Immature Grans 0.01 10^3/uL (0.0-0.06); Absolute Basophil Count 0.03 10^3/uL (0.0-0.2); Absolute Eosinophil Count 0.09 10^3/uL (0.0-0.7); Absolute Monocyte Count 0.52 10^3/uL (0.1-0.8); Absolute Neutrophil Count 2.52 10^3/uL (1.2-6.7); Basophils % 0.4; Eosinophils % 1.3; HCT 37.2 % (36.0-46.0); HGB 12.2 g/dL (11.2-15.7); Immature Grans % 0.1; Lymphocytes % 53.9; MCH 28.2 pg (27.0-33.0); MCHC 32.8 % (32.0-36.0); MCV 86.1 fL (80-95); MPV 12.2 fL (8.0-11.0); Monocytes % 7.6; Neutrophils % 36.7; Nucleated RBC 0 %; Platelet Count 203 10^3/uL (130-400); RBC 4.32 10^6/uL (3.93-5.22); RDW 12.6 % (11.7-14.6); RDW-SD 39.8 fL; WBC 6.87 10^3/uL (4.4-10.8)
[2021-01-22 07:08] LABS: Anion Gap 8.5 mmol/L (3-11); BUN 7 mg/dL (7-18); CO2 27.5 mmol/L (21.0-32.0); CREATININE 0.6 mg/dL (0.55-1.02); Calcium 9.3 mg/dL (8.5-10.1); Chloride 107 mmol/L (98-107); Glucose 93 mg/dL (74-106); Potassium 3.3 mmol/L (3.5-5.1); Sodium 143 mmol/L (136-145)
[2021-01-22 07:22] LABS: Hemoglobin A1C 5.3 % (<5.7)
[2021-01-22] MEDS: Multivitamin TAB 1 TAB PO (07:45)
[2021-01-22] MEDS: Gabapentin 300 MG CAP PO ×3 (07:45→20:24)
[2021-01-22] MEDS: Pantoprazole 40 MG TABCR PO (07:45)
[2021-01-22] MEDS: Divalproex 250 MG TABEC PO ×2 (07:45→20:24)
[2021-01-22] MEDS: Normal Saline Flush 10 ML SYR IVP ×2 (07:46→20:22)
[2021-01-22] MEDS: Magnesium Lactate-SR 84 MG TABCR PO (09:10)
[2021-01-22] MEDS: Normal Saline 500 ML 50 ML IV (10:45)
[2021-01-22] MEDS: POTASSIUM CHLORIDE 20 MEQ/100 ML BAG 50 MEQ IVPB (10:45)
--- NOTE | 2021-01-22 11:29 | DSE_ITS ---
Date of service: 01/22/21 Time of Service: 11:42 DS: Diagnosis Discharge Diagnosis (1) Sinus bradycardia: Status: Acute Asessment and Plan: likely vagal in etiology (2) Hematemesis: Status: Acute (3) Vomiting: Status: Acute (4) H/O gastric bypass: Status: Acute (5) Fall: Status: Acute (6) Seizure disorder: Status: Chronic (7) Hypokalemia: Status: Acute (8) COVID-19 ruled out by laboratory testing: Status: Ruled-out Discharge Plan Disposition Patient Disposition: [facility] Condition: Fair Discharge Details Reason For Visit: Dizziness,Bradycardia Admit Date/Time: 01/21/21 19:39 Admit Provider: Rodrigo Garland Attending Provider: Rodrigo Garland Primary Care Provider: Ned Ibarra [facility] Course Hospital Course: Ms Dunn is a 40 year old female with PMHx of morbid obesity s/p Robert-en-y procedure at [facility] on 11/12/[address] Grove, as well as h/o seizure d/o (per patient), migraines, BETTIE, who was observed on [facility] hospitalist service from 01/21/21 until she was accepted in transfer to [facility] on 01/22/21, having presented with dizziness, nausea/hematemesis, and a fall. The patient had experienced a dizzy spell 3 days prior to her presentation, falling down some stairs. The patient had one episode of blood tinged emesis at home on day of presentation as well as one episode recorded at our facility. She states that she has been persistently nauseated and has had recurrent vomiting at home ever since the surgery to the point that she cannot take her medications (except for the PPI that she has been able to keep down). These medications include depakote that the patient states was being started on her for seizures. The patient was found to be persistently bradycardic in her 40s, sometimes dipping into the 30s while awake. Since her nausea has been controlled, her HR did increase to mid-50s. Case was discussed with Dr Grove of [facility], who ruled out a possibility of the vagal nerve being possibly affected by the patient's surgery. With this i nformation, the most likely reason for the patient's bradycardia appears to be a vagal response to nausea which is improving with antiemetics. Meanwhile, the patient would benefit from an EGD at the facility where her surgery was performed to ensure no complications of the Robert-en-Y have developed, given the hematemesis and persistent nausea. The patient was accepted in transfer to [facility] General Surgery service by Dr Grove for an EGD tomorrow. The patient consents to transfer. Care for patient as well as completion of her discharge summary on day of discharge took 45 minutes. For list of medications on inpatient admission, please see MAR. List of medications below reflects the patient's outpatient medications. Home Meds and New Rx's Prescriptions: No Action docusate sodium 100 mg capsule 100 mg PO DAILY PRNRF: 0 lisinopril 10 mg tablet 10 mg PO DAILY RF: 0 sumatriptan succinate 50 mg tablet See Rx Instructions PO .COMPLEX PRNRF: 0 gabapentin 300 mg capsule 300 mg PO TID RF: 0 albuterol sulfate 90 mcg/actuation Hfa Aerosol Inhaler 2 puff INHALATION QID PRNRF: 0 divalproex [Depakote] 250 mg Tablet,Delayed Release (Dr/Ec) 250 mg PO BID RF: 0 pantoprazole 40 mg Tablet,Delayed Release (Dr/Ec) 40 mg PO DAILY RF: 0 methocarbamol 750 mg tablet 750 mg PO Q8H PRN (Reason: pain) Qty: 10 RF: 0 multivitamin Tablet 1 tab PO DAILY RF: 0 atorvastatin 40 mg tablet 40 mg PO HS RF: 0 magnesium L-lactate [Magtab] 84 mg tablet extended release 84 mg PO DAILY RF: 0 loratadine 10 mg capsule 10 mg PO DAILY PRNRF: 0 biotin 1 mg Capsule 1 mg PO DAILY RF: 0 acetaminophen 500 mg tablet 500 mg PO Q6H PRN (Reason: pain) Qty: 60 RF: 0 ondansetron HCl [Zofran] 4 mg tablet 4 mg PO Q8H PRNQty: 10 RF: 0 Discharge Instructions Activity:: Activity as Tolerated Equipment/Supplies:: No Equipment Needed Diet:: bland low sodium Discharge Orders Discharge Orders: Discharge Order (Routine); Ordered 01/22/21 Ordered By: Nilda Sow DS: Summary Time Spent with Patient providing and/or coordinating discharge services: Greater than 30 minutes Status at Discharge Functional status at discharge: independent ambulation Overall status at discharge: patient is progressing back to baseline Mental Status: mental status grossly normal Speech and Movement: speech and movement normal Mood: congruent mood Affect: normal affect Exam Narrative Exam Narrative: General: Pleasant obese female, looks comfortable sitting in a chair, A&Ox3, NAD HEENT: EOMI, MMM Heart: RRR, bradycardic, no m/r/g Lungs: CTAB Abdomen: soft, nontender, nondistended Extremities: no edema BLE's. Psych Mental Status: mental status grossly normal Speech and Movement: speech and movement normal Mood: congruent mood Affect: normal affect DS: Data Vitals/I&O Vitals and I&O: Vital Signs Temperature 36.2 C L 01/22/21 11:11 Temperature Source Temporal Artery Scan 01/22/21 11:11 Pulse 57 L 01/22/21 11:11 Pulse Rhythm Regular 01/22/21 07:40 Pulse 61 01/21/21 19:48 Respiratory Rate 17 01/22/21 11:11 Respiratory Effort Non-Labored 01/22/21 07:40 Respiratory Depth Normal 01/22/21 07:40 Respiratory Pattern Normal 01/22/21 07:40 Blood Pressure 135/72 01/22/21 11:11 Blood Pressure Mean 84 01/21/21 19:48 Blood Pressure Position Sitting 01/21/21 14:54 Pulse Oximetry 100 01/22/21 11:11 Oxygen Delivery Method Room Air 01/22/21 11:11 Oxygen Flow Rate 0 01/22/21 11:11 Pain Level 0 01/22/21 11:11 Comment 01/21/21 14:54 Intake & Output 01/21/21 01/21/21 01/22/21 11:59 23:59 11:59 Intake Total Output Total 100 / 100 425 / 425 Balance -100 / -100 -415 / -415 Weight 83.915 kg Intake: IV Output: Urine 100 / 100 425 / 425 Other: Urine Color Light Brittany Yellow Urine Appearance Clear Clear Urine Odor None Stool Size Moderate Stool Characteristics Soft Formed Emesis Description Blood Tinged Voiding Methods Toilet Toilet Data Completed and Pending Completed studies during hospitalization [Text1]: CT abdomen/pelvis 01/21/21: ABDOMEN: There is no ascites. LIVER: There are no focal hepatic lesions evident . GALLBLADDER/BILIARY: No obvious gallbladder pathology. CBD is not dilated. PANCREAS: No evidence of pancreatic mass nor dilatation of the pancreatic duct. SPLEEN: Spleen is not enlarged. No obvious intrasplenic lesions. Splenic and portal veins are patent. ADRENALS: There are no significant adrenal masses. KIDNEYS:No cysts evident. No solid renal masses. No calculi nor hydronephrosis.. ABDOMINAL AORTA: Abdominal aorta is not enlarged. LYMPH NODES:There is no retroperitineal nor paraaortic adenopathy. ABDOMINAL WALL: No evidence of significant anterior abdominal wall hernia. GI: There is no evidence of bowel obstruction, free air, nor abscess. PELVIS: GI: No evidence of appendicitis.No evidence of sigmoid diverticulitis. LYMPH NODES: There is no intrapelvic nor inguinal adenopathy. REPRODUCTIVE: Age-appropriate URINARY BLADDER: No calculi nor obvious masses evident OSSEOUS: No significant osseous lesions. CT thoracic/lumbar spine: 1. No acute findings in the thoracic spinal column. 2. No acute findings in the lumbar spinal column. 3. L5-S1 fusion surgery noted. No hardware fracture. No obvious loosening. Labs on day of discharge: Labs from last 24 hours 01/22/21 01/22/21 01/22/21 12:00 06:25 06:25 WBC 6.87 RBC 4.32 Hgb Pending 12.2 Hct Pending 37.2 MCV 86.1 MCH 28.2 MCHC 32.8 RDW 12.6 Plt Count 203 MPV 12.2 H Immature Gran % 0.1 Neutrophils % 36.7 Lymphocytes % 53.9 Monocytes % 7.6 Eosinophils % 1.3 Basophils % 0.4 Nucleated RBC % 0 Absolute Neutrophils 2.52 Absolute Lymphocytes 3.70 H Absolute Monocytes 0.52 Absolute Eosinophils 0.09 Absolute Basophils 0.03 Sodium Potassium Chloride Carbon Dioxide Anion Gap BUN Creatinine Estimated GFR/1.73 m2 Glucose Hemoglobin A1c 5.3 Calcium Magnesium Total Bilirubin AST ALT Alkaline Phosphatase Troponin I Total Protein Albumin Lipase TSH [facility] Valproic Acid COVID-19 Source SARS-CoV-2 (PCR) 01/22/21 01/21/21 01/21/21 06:25 Unknown 20:01 WBC RBC Hgb Hct MCV MCH MCHC RDW Plt Count MPV Immature Gran % Neutrophils % Lymphocytes % Monocytes % Eosinophils % Basophils % Nucleated RBC % Absolute Neutrophils Absolute Lymphocytes Absolute Monocytes Absolute Eosinophils Absolute Basophils Sodium 143 Potassium 3.3 L Chloride 107 Carbon Dioxide 27.5 Anion Gap 8.5 BUN 7 Creatinine 0.6 Estimated GFR/1.73 m2 >= 60.00 Glucose 93 Hemoglobin A1c Calcium 9.3 Magnesium Total Bilirubin AST ALT Alkaline Phosphatase Troponin I Total Protein Albumin Lipase TSH Stl [facility] Pending Valproic Acid COVID-19 Source Nasal/Nares SARS-CoV-2 (PCR) Negative 01/21/21 01/21/21 01/21/21 15:45 15:45 15:45 WBC 9.16 RBC 4.71 Hgb 13.3 Hct 40.5 MCV 86.0 MCH 28.2 MCHC 32.8 RDW 12.5 Plt Count 258 MPV 11.5 H Immature Gran % 0.2 Neutrophils % 59.3 Lymphocytes % 34.1 Monocytes % 5.7 Eosinophils % 0.3 Basophils % 0.4 Nucleated RBC % 0 Absolute Neutrophils 5.43 Absolute Lymphocytes 3.12 Absolute Monocytes 0.52 Absolute Eosinophils 0.03 Absolute Basophils 0.04 Sodium Potassium Chloride Carbon Dioxide Anion Gap BUN Creatinine Estimated GFR/1.73 m2 Glucose Hemoglobin A1c Calcium Magnesium 2.1 Total Bilirubin AST ALT Alkaline Phosphatase Troponin I Total Protein Albumin Lipase TSH 0.65 Stl Occult Bld Clinic Valproic Acid < 3 L COVID-19 Source SARS-CoV-2 (PCR) 01/21/21 15:45 WBC RBC Hgb Hct MCV MCH MCHC RDW Plt Count MPV Immature Gran % Neutrophils % Lymphocytes % Monocytes % Eosinophils % Basophils % Nucleated RBC % Absolute Neutrophils Absolute Lymphocytes Absolute Monocytes Absolute Eosinophils Absolute Basophils Sodium 143 Potassium 3.6 Chloride 105 Carbon Dioxide 28.7 Anion Gap 9.3 BUN 9 Creatinine 0.7 Estimated GFR/1.73 m2 >= 60.00 Glucose 95 Hemoglobin A1c Calcium 9.8 Magnesium Total Bilirubin 0.6 AST 35 ALT 62 H Alkaline Phosphatase 89 Troponin I < 0.05 Total Protein 8.4 H Albumin 4.4 Lipase 135 TSH Stl Occult Bld Clinic Valproic Acid COVID-19 Source SARS-CoV-2 (PCR) [facility] Medical History Anxiety and depression Asthma Diabetes mellitus, type 2 Elevated lipids Migraine Migraine headache without aura CHAPARRO (nonalcoholic steatohepatitis) Obstructive sleep apnea syndrome Polycystic ovaries Seizure disorder Surgical History anterior cruciate ligament reconstruction section twice Colonoscopy - MAC (11/26/16) EGD - MAC (11/26/16) Endoscopic Carpal Tunnel release (01/14/09) 09/16/2010 REPEAT ECTR RIGHT Ligation of fallopian tube Open Carpal Tunnel release (10/23/12) RIGHT SIDE, left 8.14.14 Vaginal hysterectomy Social History Smoking/Tobacco Use Status: Former Tobacco Use Quit Date: 08/01/05 Smoking risk assessment performed?: Yes Alcohol Intake: never Drug use: Never Substance use type: does not use Household members: spouse and children Housing: other Details: trailer Current gender identity: female What is your relationship status?: Panel score (0-1 are the most socially isolated patients): 1 Seatbelt use: always Do you feel safe at home: Yes Do you feel safe in your relationship?: Yes
[2021-01-22 12:46] LABS: HCT 41.1 % (36.0-46.0); HGB 13.4 g/dL (11.2-15.7)
--- NOTE | 2021-01-22 12:52 | W.NUTCONSULT ---
Date of service: 01/22/21 Time of Service: 12:52 Nutritional Consult ASSESSMENT: Met with Dawn today. She was admitted with persistent vomiting s/p RYGB 11/12/20. PMH: DM, HTN, HLD. DM, HTN, HLD resolved. Most recent A1c: 5.3%. Has lost 50 lbs in last 8 weeks however has been unable to hold most solids down. Reports in close contact with [facility] dietitian/RN, EGD planned for 01/23/21 at [facility]- may need dilation. Reports only able to tolerate sliced cucumbers, strawberries, watermelon, banana and tuna. Unable to tolerate multivitamins/protein shakes. At high risk for malnutrition in view of poor dietary intake since RYGB. NUTRITIONAL DIAGNOSIS: malnutrition in view of inability to tolerate essential macronutrients s/p RYGB INTERVENTION: minced and moist - small portions ensure clear TID MVI-chewable Calcium citrate- chewable MONITORING AND EVALUATION: po intake, labs, weight Time Spent in Nutritional Counseling and Treatment: 20
[2021-01-22] MEDS: POTASSIUM CHLORIDE 20 MEQ/100 ML BAG 40 MEQ IVPB (12:57)
--- NOTE | 2021-01-22 18:05 | INITIAL_ITS ---
- If Service Date Differs Date of service: 01/22/21 Time of Service: 18:05 Care Management Initial Assess REASON FOR HOSPITALIZATION:: Bradycardia, hematemesis PAST MEDICAL HISTORY/PAST SURGICAL HISTORY:: Medical History. Anxiety and depression. Asthma. Diabetes mellitus, type 2. Elevated lipids. Migraine. Migraine headache without aura. CHAPARRO (nonalcoholic steatohepatitis). Obstructive sleep apnea syndrome. Polycystic ovaries. Surgical History. anterior cruciate ligament reconstruction. section. twice. Colonoscopy - MAC (11/26/16). EGD - MAC (11/26/16). Endoscopic Carpal Tunnel release (01/14/09). 09/16/2010 REPEAT ECTR RIGHT. Ligation of fallopian tube. Open Carpal Tunnel release (10/23/12). RIGHT SIDE, left 8.14.14. Vaginal hysterectomy PREVIOUS FUNCTIONAL STATUS/SOCIAL/FAMILY SUPPORTS:: Dawn lives in [facility] with her S/O, Jimmy. Her mother lives nearby. She is independent at baseline. CURRENT FUNCTIONAL STATUS:: Dawn was accepted for transfer to [facility] today, awaiting bed availability. Per report, although she was accepted today, there was no bed for her. Anticipate transfer tomorrow. CM will continue to follow. ADVANCE DIRECTIVES:: None on file. Has patient been provided with info about the portal/API?: No Did the patient sign up for the portal?: No CODE STATUS:: Full Code INSURANCE COVERAGE / FINANCIAL ISSUES:: [employer] CURRENT HOME/COMMUNITY SERVICES/EQUIPMENT:: No known equipment or services. PRIMARY CARE PHYSICIAN:: Ned Ibarra POTENTIAL DISCHARGE NEEDS:: Transfer, pending bed availability. PATIENT/FAMILY EDUCATION NEEDS:: Discussion of self care needs including ask me three. ANTICIPATED BARRIERS TO DISCHARGE:: Bed availability at [facility] TRANSPORTATION:: Via ambulance, coordinated by RN Technician [employer]. PLAN:: Dawn has been accepted for transfer to [facility], and is currently awaiting a bed. Per report, she will likely be transferred tomorrow, as there is no expectation that she will be transferred this evening. CM will continue to follow.
[2021-01-22] MEDS: Pantoprazole 40 MG VIAL IVP (20:22)
[2021-01-22] MEDS: Atorvastatin 40 MG TAB PO (21:39)
[2021-01-23 03:04] VITALS: BP 97/61; PULSE 45; RESP 16; TEMP 35.9; O2SAT 98
[2021-01-23 03:10] VITALS: PULSE 54
[2021-01-23 07:00] VITALS: PULSE 45
[2021-01-23 07:18] LABS: Abs Immature Grans 0.02 10^3/uL (0.0-0.06); Absolute Basophil Count 0.03 10^3/uL (0.0-0.2); Absolute Eosinophil Count 0.07 10^3/uL (0.0-0.7); Absolute Lymphocyte Count 3.34 10^3/uL (1.2-3.4); Absolute Monocyte Count 0.53 10^3/uL (0.1-0.8); Absolute Neutrophil Count 3.21 10^3/uL (1.2-6.7); Basophils % 0.4; HCT 39.8 % (36.0-46.0); HGB 12.8 g/dL (11.2-15.7); Immature Grans % 0.3; Lymphocytes % 46.4; MCH 27.8 pg (27.0-33.0); MCHC 32.2 % (32.0-36.0); MCV 86.5 fL (80-95); MPV 11.8 fL (8.0-11.0); Monocytes % 7.4; Neutrophils % 44.5; Nucleated RBC 0 %; Platelet Count 207 10^3/uL (130-400); RDW 12.6 % (11.7-14.6); RDW-SD 39.8 fL
[2021-01-23 07:25] LABS: Anion Gap 9.6 mmol/L (3-11); BUN 8 mg/dL (7-18); CO2 26.4 mmol/L (21.0-32.0); CREATININE 0.6 mg/dL (0.55-1.02); Calcium 9.2 mg/dL (8.5-10.1); Chloride 109 mmol/L (98-107); Glucose 93 mg/dL (74-106); Potassium 3.7 mmol/L (3.5-5.1); Sodium 145 mmol/L (136-145)
[2021-01-23] MEDS: Gabapentin 300 MG CAP PO ×2 (07:34→14:03)
[2021-01-23] MEDS: Magnesium Lactate-SR 84 MG TABCR PO (07:34)
[2021-01-23] MEDS: Divalproex 250 MG TABEC PO (07:34)
[2021-01-23] MEDS: Multivitamin TAB 1 TAB PO (07:34)
[2021-01-23] MEDS: Pantoprazole 40 MG VIAL IVP (07:34)
[2021-01-23] MEDS: Normal Saline Flush 10 ML SYR IVP (07:35)
[2021-01-23 07:44] VITALS: BP 102/59; PULSE 43; RESP 19; TEMP 35.7; O2SAT 100
[2021-01-23] MEDS: Normal Saline 1,000 ML 125 ML IV (10:53)
--- NOTE | 2021-01-23 12:22 | PDOC.CMPRO ---
- If Service Date Differs Date of service: 01/23/21 Time of Service: 12:22 Care Management Progress Note S/O: Dawn was sitting up in bed, talking with her mother and daughter on the phone when CM met with her. She reported that she is hoping to go to [facility] today, as she was accepted for transfer yesterday. She discussed her gastric bypass surgery and how she has been having a difficult time eating since. She is glad to be having the procedure at [facility] in order to find out what is making her so sick. She stated that she is still happy that she had the surgery, as she was told that she would without it, due to liver failure. She is anxiously awaiting her transfer. CM will continue to follow. A: Dawn is a 40 year old female admitted to [facility] on 01/21/21 with bradychardia. P: Dawn is currently awaiting transfer to [facility]. She was accepted yesterday, pending bed availability. There was no bed for her yesterday. She will be transferred once a bed becomes available. Her ambulance transport will be coordinated by RN supervisor cigar processing. CM will continue to follow.
[2021-01-23 15:09] VITALS: PULSE 48
[2021-01-23 15:40] VITALS: BP 122/57; PULSE 49; RESP 20; TEMP 36.4; O2SAT 99
--- NOTE | 2021-01-23 18:15 | NUR.NOTE ---
Nursing Note: 01/23/21 18:16 Yseza-[id number] handoff given to 4 Sandip at [facility] at [phone].
== END 2021-01-23 17:13 | disposition short-term general hospital (02) ==
LOC: ER 20:03 → MS 20:19
PROVIDERS: Internal Medicine; Admitting Provider Internal Medicine; Emergency Provider Student in an Organized Health Care Education/Training Program; PCP Nurse Practitioner Family; Visit Provider Internal Medicine
DX: K92.0 Hematemesis (principal); R00.1 Bradycardia, unspecified; Z98.84 Bariatric surgery status; G40.909 Epilepsy, unspecified, not intractable, without status epilepticus; Z20.822 Contact with and (suspected) exposure to COVID-19; E66.9 Obesity, unspecified; E11.9 Type 2 diabetes mellitus without complications; E78.5 Hyperlipidemia, unspecified; I10 Essential (primary) hypertension; E28.2 Polycystic ovarian syndrome; W10.8XXA Fall (on) (from) other stairs and steps, initial encounter; R42 Dizziness and giddiness; F41.8 Other specified anxiety disorders; J45.909 Unspecified asthma, uncomplicated; K75.81 Nonalcoholic steatohepatitis (NASH); G47.33 Obstructive sleep apnea (adult) (pediatric); G43.009 Migraine without aura, not intractable, without status migrainosus
CPT/HCPCS: 36415; 36416; 80048; 80053; 82962; 83690; 87635; 93005; 99285; 72128; 72131; 74177; 80164; 83036; 83735; 84443; 84484; 85014; 85018; 85025; 93010; 99217; 99219; 99284; G0378; J3480

== ENCOUNTER 2021-02-24 02:44 | Outpatient (CLI) | payer MEDICAID, SELFPAY ==
--- NOTE | 2021-02-24 12:53 | DI.RAD_ITS ---
Exam(s) XR THORACIC SPINE COMPLETE EXAM: XR THORACIC SPINE COMPLETE CLINICAL HISTORY: BACK PAIN WITH RADICULOPATHY, M54.16. TECHNIQUE: 2D digital imaging was performed. COMPARISON: CR,XR XR THORACIC SPINE COMPLETE from 05/26/2019 FINDINGS: BONES: There is no fracture or destructive lesion. The vertebral bodies and posterior elements are un remarkable. Osteophytes are seen at the endplates of multiple vertebral bodies. DISKS:Alignment is within normal limits. Interverebral disc spaces are maintained. SOFT TISSUE: Visualized lungs are clear. IMPRESSION: Mild degenerative changes in the thoracic spine. DATA REPOSITORY: RADIATION DOSE DELIVERED:
--- NOTE | 2021-02-24 12:53 | DI.RAD_ITS ---
Exam(s) XR LUMBAR SPINE COMPLETE EXAM: XR LUMBAR SPINE COMPLETE CLINICAL HISTORY: BACK PAIN LUMBAR WITH RADICULOPATHY, M54.16. TECHNIQUE: 2D digital imaging was performed. COMPARISON: No exams were available for comparison FINDINGS: BONES: No fracture or destructive lesion. Vertebral bodies are unremarkable. No facet hypertrophy sonia ntified. Posterior spinal surgery at L5-S1 DISKS: Intervertebral disc spaces are maintained. ALIGNMENT: Lumbar spinal alignment is within normal limits. No spondylolysis or spondylolisthesis. SOFT TISSUE: Normal. IMPRESSION: No acute fracture or subluxation in the lumbar spine. DATA REPOSITORY: RADIATION DOSE DELIVERED:
== END 2021-02-24 03:04 ==
PROVIDERS: PCP Nurse Practitioner Family; Visit Provider Nurse Practitioner Family
DX: M47.24 Other spondylosis with radiculopathy, thoracic region (principal); M54.16 Radiculopathy, lumbar region
CPT/HCPCS: 72072; 72110

== ENCOUNTER 2021-03-16 03:43 | Outpatient (CLI) | payer MEDICAID, SELFPAY ==
--- NOTE | 2021-03-16 09:30 | HOLTER_ITS ---
APPROVED REPORT Conclusion There is a 48-hour monitor ordered for indication of chest pain. The patient was in normal sinus rhythm for the majority the recording with an average heart rate of 5 7 bpm. There were no episodes of ventricular tachycardia and 3 total PVCs. There were 2 episodes of supraventricular tachycardia with the longest lasting 5 beats. There were r are PACs. There were no episodes of atrial fibrillation, no pauses greater than 3 seconds and no evidence of hi gh degree heart block. There were 4 patient diary events associated with chest pressure and chest pain lasting 5 to 10 minut es. None of these were associated with arrhythmia.
== END 2021-03-16 03:44 | disposition home or self-care (01) ==
LOC: RT 03:43
PROVIDERS: PCP Nurse Practitioner Family; Visit Provider Nurse Practitioner Family
DX: R07.9 Chest pain, unspecified (principal); I49.3 Ventricular premature depolarization; I47.1 Supraventricular tachycardia
CPT/HCPCS: 93225; 93226

== ENCOUNTER 2021-04-16 10:11 | Outpatient (CLI) | payer MEDICAID, SELFPAY ==
--- NOTE | 2021-04-16 10:00 | RT.EKG_ITS ---
APPROVED REPORT Exam: Resting ECG Reason for Exam: chest pain Patient Location: O HR:51 bpm ECG Measurements Heart Rate 51 AXIS WV 158 P -9 QRSd 100 QRS 17 QT 438 T 33 QTc 404 Conclusion Sinus rhythm...normal P axis, V-rate 50- 99 RSR' in V1 or V2, probably normal variant...small R' only Baseline wander in lead(s) V6
== END 2021-04-16 10:12 | disposition home or self-care (01) ==
LOC: DI.CARD 10:12
PROVIDERS: PCP Nurse Practitioner Family; Visit Provider Internal Medicine Cardiovascular Disease
DX: R07.9 Chest pain, unspecified (principal)
CPT/HCPCS: 93010

== ENCOUNTER 2021-05-02 15:11 | Outpatient (REF) | payer MEDICAID, SELFPAY ==
[2021-05-02 16:53] LABS: Abs Immature Grans 0.01 10^3/uL (0.0-0.06); Absolute Basophil Count 0.05 10^3/uL (0.0-0.2); Absolute Eosinophil Count 0.07 10^3/uL (0.0-0.7); Absolute Lymphocyte Count 3.43 10^3/uL (1.2-3.4); Absolute Neutrophil Count 3.81 10^3/uL (1.2-6.7); Basophils % 0.6; Eosinophils % 0.9; HGB 12.7 g/dL (11.2-15.7); Immature Grans % 0.1; Lymphocytes % 44.1; MCH 28.3 pg (27.0-33.0); MCHC 33.4 % (32.0-36.0); MCV 84.6 fL (80-95); MPV 11.9 fL (8.0-11.0); Monocytes % 5.1; Neutrophils % 49.2; Nucleated RBC 0 %; Platelet Count 251 10^3/uL (130-400); RBC 4.49 10^6/uL (3.93-5.22); RDW 13.1 % (11.7-14.6); RDW-SD 40.2 fL; WBC 7.77 10^3/uL (4.4-10.8)
[2021-05-02 17:10] LABS: ALT 27 U/L (14-59); AST 19 U/L (15-37); Albumin 4.1 g/dL (3.4-5.0); Alkaline Phosphatase 91 U/L (46-116); Anion Gap 5.5 mmol/L (3-11); BUN 13 mg/dL (7-18); Bilirubin, Total 0.4 mg/dL (0.2-1.0); CO2 30.5 mmol/L (21.0-32.0); CREATININE 0.6 mg/dL (0.55-1.02); Calcium 9.4 mg/dL (8.5-10.1); Chloride 107 mmol/L (98-107); Glucose 82 mg/dL (74-106); Potassium 3.9 mmol/L (3.5-5.1); Sodium 143 mmol/L (136-145); Total Protein 7.6 g/dL (6.4-8.2)
[2021-05-04 11:55] LABS: COVID-19 RT-PCR UVMMC Result Negative (Negative)
== END 2021-05-02 15:12 | disposition home or self-care (01) ==
LOC: LBN 15:11
PROVIDERS: PCP Nurse Practitioner Family; Visit Provider Physician Assistant Medical
DX: R11.0 Nausea (principal); Z86.39 Personal history of other endocrine, nutritional and metabolic disease; Z20.822 Contact with and (suspected) exposure to COVID-19
CPT/HCPCS: 80053; U0003; 85025

== ENCOUNTER 2021-06-27 15:42 | Emergency (ER) | payer MEDICAID, SELFPAY ==
[2021-06-27 15:49] VITALS: BP 111/46; PULSE 60; RESP 16; TEMP 36.2; O2SAT 99
--- NOTE | 2021-06-27 16:00 | DI.RAD_ITS ---
Exam(s) XR ANKLE LT COMPLETE EXAM: XR ANKLE LT COMPLETE CLINICAL HISTORY: L lateral pain after fall. TECHNIQUE: 2D digital imaging was performed. COMPARISON: CR LEFT ANKLE COMPLETE from 12/31/2010 FINDINGS: There is no evidence of fracture or widening of the mortise. Talar dome appears unremarkable. No os seous tarsal coalition. IMPRESSION: No acute fracture seen. DATA REPOSITORY: RADIATION DOSE DELIVERED:
--- NOTE | 2021-06-27 16:07 | ED.GENADUL_ITS ---
Discharge Plan Disposition Patient Disposition: HOME Condition: Improving Discharge Details Clinical Impression: Left ankle sprain Primary Care Provider: Deyanira Marcus ED Provider: Oumar Wong Home Meds and New Rx's Prescriptions: Continued docusate sodium 100 mg capsule 100 mg PO DAILY PRNRF: 0 sumatriptan succinate 50 mg tablet See Rx Instructions PO .COMPLEX PRNRF: 0 albuterol sulfate [ProAir HFA] 90 mcg/actuation HFA aerosol inhaler 2 inh inhalation Q6H PRNRF: 0 Flovent HFA 110 mcg/actuation HFA aerosol inhaler 1 inh inhalation BID RF: 0 multivitamin Tablet 1 tab PO DAILY RF: 0 ursodiol 200 mg capsule 250 mg PO BID RF: 0 pantoprazole 40 mg Tablet,Delayed Release (Dr/Ec) 40 mg PO DAILY RF: 0 methocarbamol 750 mg tablet 750 mg PO Q8H PRN (Reason: pain) Qty: 10 RF: 0 loratadine 10 mg capsule 10 mg PO DAILY PRNRF: 0 biotin 1 mg Capsule 1 mg PO DAILY RF: 0 acetaminophen 500 mg tablet 500 mg PO Q6H PRN (Reason: pain) Qty: 60 RF: 0 Discharge Instructions Instructions: Ankle Sprain (ED) Additional Instructions: Wear ankle walking boot as needed for comfort 3 to 7 days time. May remove at bedtime and while bathing or at rest. Ice to reduce discomfort. Elevate above the level of the heart to reduce pain and swelling. Medical Decision Making 41-year-old female slipped at home with deviation of her left ankle. She was not injured in any other way. Now with left lateral malleolus pain and swelling. Given ice topically for comfort in addition to the NSAID she is taken at home. Referred for x-ray to rule out underlying fracture. X-ray without evidence of traumatic injury. Will place an ankle walking boot for comfort. She understands homecare and indications to seek reevaluation. Stable for discharge. HPI General Mode of arrival: ambulatory . Date/Time Provider Initiated Documentation: 06/27/21 16:02 . Limitations to Documentation: no limitations . Information obtained by: patient . History of Present Illness 41 year old F presents to the emergency department with the chief complaint of Left lateral ankle pain, described as moderate, Quality is described as dull and constant, and is localized to the left and lower extremity. Patient reports no radiation. Patient started experiencing this minute(s) and it has been constant. No relieving factors improve symptom(s), Movement worsens symptoms . Patient notes no other symptoms.. Patient did receive the following treatments prior to arrival, NSAID Related Data Home Medications Medication Instructions Recorded Confirmed pantoprazole 40 mg PO DAILY 05/11/19 06/27/21 docusate sodium 100 mg capsule 100 mg PO DAILY PRN 08/30/19 06/27/21 sumatriptan succinate 50 mg tablet See Rx Instructions PO .COMPLEX PRN 11/27/19 06/27/21 acetaminophen 500 mg PO Q6H PRN #60 tab 05/28/20 06/27/21 methocarbamol 750 mg PO Q8H PRN #10 tab 08/15/20 06/27/21 biotin 1 mg PO DAILY 01/21/21 06/27/21 loratadine 10 mg PO DAILY PRN 01/21/21 06/27/21 albuterol sulfate 90 mcg/actuation 2 inh INHALATION Q6H PRN 03/23/21 06/27/21 aerosol inhaler fluticasone propionate 110 1 inh INHALATION BID 03/23/21 06/27/21 mcg/actuation HFA aerosol inhaler multivitamin 1 tab PO DAILY 03/23/21 06/27/21 ursodiol 200 mg capsule 250 mg PO BID cap 04/16/21 06/27/21 Previous Rx's Medication Instructions Recorded acetaminophen 500 mg PO Q6H PRN #60 tab 05/28/20 methocarbamol 750 mg PO Q8H PRN #10 tab 08/15/20 Allergies Allergy/AdvReac Type Severity Reaction Status Date / Time amoxicillin Allergy Severe Other (See Verified 04/16/21 11:00 Comment) artichoke Allergy Severe ANAPHYLAXIS Verified 04/16/21 11:00 Penicillins Allergy Intermediate HIVES Verified 04/16/21 11:00 sodium hypochlorite solution Allergy Intermediate HIVES/SOB Verified 04/16/21 11:00 [sodium hypochlorite] adhesive tape Allergy Unverified 06/27/21 15:53 General Stated Complaint: Orthopedic MIKE: 4 Review of Systems Narrative: No other injury. Recently well. 4 Systems reviewed and otherwise negative [facility] Active Problem List Chest pain (Acute) Gastric bypass status for obesity (Acute) Bipolar 1 disorder (Acute) Seizure disorder (Chronic) Fall (Acute) H/O gastric bypass (Acute) Hypokalemia (Acute) Sinus bradycardia (Acute) Hematemesis (Acute) Right wrist sprain (Acute) Contusion of right forearm (Acute) Sprain of right elbow (Acute) Bradycardia (Acute) Vomiting (Acute) Cubital tunnel syndrome on right (Acute) Medial epicondylitis, right elbow (Acute) Right lateral epicondylitis (Acute) Migraine headache without aura (Acute) Viral illness (Acute) CHAPARRO (nonalcoholic steatohepatitis) (Acute) Medial epicondylitis, left elbow (Acute) Carpal tunnel syndrome on both sides (Acute) Tubular adenoma of colon (Acute 11/26/16) Numbness of left hand (Acute 07/04/17) Migraine (Acute 02/12/14) Elevated lipids (Acute 02/12/14) Diabetes (Acute 02/12/14) Cubital tunnel syndrome on left (Acute 09/14/17) Anxiety and depression (Acute 02/12/14) Medical History Anxiety and depression Asthma Diabetes mellitus, type 2 Elevated lipids Migraine Obstructive sleep apnea syndrome Polycystic ovaries Surgical History anterior cruciate ligament reconstruction section twice Colonoscopy - MAC (11/26/16) EGD - MAC (11/26/16) Endoscopic Carpal Tunnel release (01/14/09) 09/16/2010 REPEAT ECTR RIGHT Ligation of fallopian tube Open Carpal Tunnel release (10/23/12) RIGHT SIDE, left 8.14.14 Vaginal hysterectomy Social History Smoking/Tobacco Use Status: Former Tobacco Use Quit Date: 08/01/05 Smoking risk assessment performed?: Yes Alcohol Intake: never Drug use: Never Substance use type: does not use Household members: spouse and children Housing: other Details: trailer Current gender identity: female What is your relationship status?: Panel score (0-1 are the most socially isolated patients): 1 Seatbelt use: always Do you feel safe at home: Yes Do you feel safe in your relationship?: Yes Exam Narrative Exam Narrative: GEN: awake, alert, oriented 3. Pleasant, well groomed, interactive. HEAD: Normocephalic, atraumatic EXT: Full ROM, left lateral malleoli are tenderness in the inferior portion. Neuro: Grossly normal neurologic exam, conversant, interactive. Psych: Speech fluent, thoughts congruent, affect normal Course Vital Signs Vital signs: Vital Signs Temperature 36.2 C L 06/27/21 15:49 Pulse 60 06/27/21 15:49 Respiratory Rate 16 06/27/21 15:49 Blood Pressure 111/46 L 06/27/21 15:49 Pulse Oximetry 99 06/27/21 15:49 Temperature 36.2 C L 06/27/21 15:49 Temperature Source Temporal Artery Scan 06/27/21 15:49 Pulse 60 06/27/21 15:49 Respiratory Rate 16 06/27/21 15:49 Blood Pressure 111/46 L 06/27/21 15:49 Blood Pressure Position Sitting 06/27/21 15:49 Pulse Oximetry 99 06/27/21 15:49 Oxygen Delivery Method Room Air 06/27/21 15:49 Oxygen Flow Rate 0 06/27/21 15:49 Pain Level 7 06/27/21 15:49
--- NOTE | 2021-06-27 16:46 | DI.VRAD_ITS ---
PROCEDURE INFORMATION: Exam: XR Left Ankle Exam date and time: 06/27/2021 4:06 PM Age: 41 years old Clinical indication: Injury or trauma; Fall; Sprain or strain; Ankle; Left TECHNIQUE: Imaging protocol: XR Left ankle. Views: 3 or more views. COMPARISON: CR XR KNEE LT 3V AP,LAT,TAHIR 02/07/2020 9:40 PM FINDINGS: Bones/joints: Normal. Soft tissues: Normal. IMPRESSION: No evidence for acute posttraumatic abnormality. Dictated and Authenticated by: Sunni Coronel MD. Ordering:SHAHNAZ Oseguera MD
== END 2021-06-27 17:00 | disposition home or self-care (01) ==
PROVIDERS: Emergency Provider Emergency Medicine; PCP Nurse Practitioner Family
DX: S93.492A Sprain of other ligament of left ankle, initial encounter (principal); W00.0XXA Fall on same level due to ice and snow, initial encounter
CPT/HCPCS: 29515; 99283; 73610

== ENCOUNTER 2021-07-10 13:36 | Outpatient (CLI) | payer MEDICAID, SELFPAY ==
--- NOTE | 2021-07-13 | DI.RAD_ITS ---
Exam(s) XR ANKLE LT COMPLETE EXAM: XR ANKLE LT COMPLETE CLINICAL HISTORY: LT ANKLE JOINT PAIN, M25.572. TECHNIQUE: 2D digital imaging was performed. COMPARISON: CR,XR XR ANKLE LT COMPLETE from 06/27/2021 FINDINGS: There is no evidence of fracture or widening mortise. Talar dome appears unremarkable. Bone density is age-appropriate. No degenerative changes. No osseous tarsal coalition. Small inferior calcanea l spur noted. IMPRESSION: DATA REPOSITORY: RADIATION DOSE DELIVERED:
== END 2021-07-10 13:56 ==
PROVIDERS: PCP Nurse Practitioner Family; Visit Provider Family Medicine
DX: M25.572 Pain in left ankle and joints of left foot (principal); M77.32 Calcaneal spur, left foot
CPT/HCPCS: 73610

== ENCOUNTER 2021-08-21 14:58 | Emergency (ER) | payer MEDICAID, SELFPAY ==
[2021-08-21] VITALS (23 sets, daily range): BP systolic 98–114; BP diastolic 45–72; PULSE 40–61; RESP 12–20; TEMP 36.3–36.5; O2SAT 97–100
--- NOTE | 2021-08-21 15:15 | DI.CT_ITS ---
Exam(s) CT ABDOMEN PELVIS W EXAM: CT ABDOMEN PELVIS W CLINICAL HISTORY: abd pain, n/V. s/p rouxenYbypass TECHNIQUE: Imaging Protocol: Axial computed tomography images with coronal and sagittal reformatted images were created and reviewed CONTRAST MATERIAL: Intravenous: Omnipaque 350 Contrast volume:100 mL Oral: No COMPARISON: CT CT ABDOMEN PELVIS W from 01/21/2021 FINDINGS: ABDOMEN: Lung Bases: Normal where visualized. Liver: Normal density. No measurable mass. Portal, Superior Mesenteric, and Splenic Veins: Unremarkable. Gallbladder and Biliary Tract: No radiodense calculus or dilation. Pancreas: Normal density, no abnormal calcifications or inflammatory process. Spleen: There again seen multiple hypodensities within the spleen. They have a similar appearance co mpared to the prior examination. Adrenals: The left adrenal myelolipoma is unchanged. Kidneys: Normal size, contour and axis. There is a nonobstructing 4 mm stone in the lower pole of the left kidney. Bilateral simple renal cysts. No follow-up is recommended. Abdominal Aorta: Abdominal portion non-dilated. Bowel: No obstruction or bowel wall thickening. No evidence of appendicitis. Stable prior gastric adkins rgery. Peritoneal Cavity: No ascites, collection or mesenteric inflammatory response. No free air. Lymph Nodes: Within normal limits. Bones: Within normal limits for the patient's age. Postsurgical changes in the lumbosacral spine. P ostsurgical changes in the right iliac bone. Soft Tissues: Unremarkable. PELVIS: Bladder: Symmetric distention, no gross wall thickening. Reproductive Organs: Status post hysterectomy. Lymph Nodes: Within normal limits. Bones: Within normal limits for the patient's age. IMPRESSION: 1. No acute abdominal or pelvic process. 2. Stable findings in the abdomen and pelvis as described above. RADIATION DOSE DELIVERED: 1,038.03mGy.cm Total DLP DATA REPOSITORY: All CT scans at this facility are submitted to the National Radiology Data Registry (NRDR) Dose Index Registry (DIR) with the [employer] ([employer]). RADIATION OPTIMIZATION: All CT scans at this facility use at least one of these dose optimization te chniques: automated exposure control; mA and/or kV adjustment per patient size (includes targeted exa ms where dose is matched to clinical indication); or iterative reconstruction.
--- NOTE | 2021-08-21 15:24 | ED.GENADUL_ITS ---
Discharge Plan Disposition Patient Disposition: HOME Condition: Improving Discharge Details Clinical Impression: Dehydration, Gastroenteritis Primary Care Provider: Deyanira Marcus ED Provider: Oumar Wong Home Meds and New Rx's Prescriptions: New ondansetron HCl 4 mg tablet 4 mg PO Q8H PRN (Reason: nausea and vomiting) Qty: 7 RF: 0 Continued docusate sodium 100 mg capsule 100 mg PO DAILY PRNRF: 0 sumatriptan succinate 50 mg tablet See Rx Instructions PO .COMPLEX PRNRF: 0 albuterol sulfate [ProAir HFA] 90 mcg/actuation HFA aerosol inhaler 2 inh inhalation Q6H PRNRF: 0 Flovent HFA 110 mcg/actuation HFA aerosol inhaler 1 inh inhalation BID RF: 0 multivitamin Tablet 1 tab PO DAILY RF: 0 ursodiol 200 mg capsule 250 mg PO BID RF: 0 pantoprazole 40 mg Tablet,Delayed Release (Dr/Ec) 40 mg PO DAILY RF: 0 methocarbamol 750 mg tablet 750 mg PO Q8H PRN (Reason: pain) Qty: 10 RF: 0 loratadine 10 mg capsule 10 mg PO DAILY PRNRF: 0 biotin 1 mg Capsule 1 mg PO DAILY RF: 0 acetaminophen 500 mg tablet 500 mg PO Q6H PRN (Reason: pain) Qty: 60 RF: 0 Discharge Instructions Instructions: Dehydration (ED), Gastroenteritis (ED) Additional Instructions: Small, frequent sips of fluids to maintain good hydration. Return to the ER for any acute concerns. May use ondansetron as needed for persistent nausea. Medical Decision Making 41-year-old female presents from home with 4 to 5 days of what began as nausea, vomiting, now loose and somewhat watery stools. No blood in either emesis or stools. She has not had a fever. She denies new inciting foods, or known sick contacts. She is immunized against COVID-19 x2. Patient had Robert-en-Y gastric bypass. She reports requiring dilatation of both proximal and distal strictures in her first postoperative year. Her blood pressure is 111/40, she has a normal pulse on a fairly benign abdominal exam but only mild tenderness present. Differential diagnosis includes obstruction, stricture, ulceration. Patient IV access established, given fluids, antiemetic, parenteral analgesia. She is referred for laboratory testing and imaging. Laboratories are reassuring with white count 7, hematocrit 43, platelets 221. Chemistries within normal limits as are LFTs. Lipase negative. Urinalysis with a specific gravity 1.02. CT images without acute findings. Please see formal report. Note of previously imaged splenic nodules. Patient stated subjectively that she felt improved. Most consistent with mild dehydration and probable gastroenteritis. We will have her continue to orally hydrate, use Zofran as needed as needed. She will return for any acute concerns. HPI General Mode of arrival: ambulatory . Date/Time Provider Initiated Documentation: 08/21/21 14:59 . Limitations to Documentation: no limitations . Information obtained by: patient . History of Present Illness 41 year old F presents to the emergency department with the chief complaint of 4 days nausea, vomiting, diarrhea, abdominal cramps, described as moderate and similar to prior episodes, and is localized to the abdomen. Patient reports no radiation. Patient started experiencing this day(s) and it has been intermittent. No relieving factors improve symptom(s), Eating worsens symptoms . Patient notes loss of appetite and nausea/vomiting; denies chest pain, cough, fever/chills, seizure, shortness of breath and syncope. Patient did receive the following treatments prior to arrival, other (Haakon diet) Related Data Home Medications Medication Instructions Recorded Confirmed pantoprazole 40 mg PO DAILY 05/11/19 08/21/21 docusate sodium 100 mg capsule 100 mg PO DAILY PRN 08/30/19 08/21/21 sumatriptan succinate 50 mg tablet See Rx Instructions PO .COMPLEX PRN 11/27/19 08/21/21 acetaminophen 500 mg PO Q6H PRN #60 tab 05/28/20 08/21/21 methocarbamol 750 mg PO Q8H PRN #10 tab 08/15/20 08/21/21 biotin 1 mg PO DAILY 01/21/21 08/21/21 loratadine 10 mg PO DAILY PRN 01/21/21 08/21/21 albuterol sulfate 90 mcg/actuation 2 inh INHALATION Q6H PRN 03/23/21 08/21/21 aerosol inhaler fluticasone propionate 110 1 inh INHALATION BID 03/23/21 08/21/21 mcg/actuation HFA aerosol inhaler multivitamin 1 tab PO DAILY 03/23/21 08/21/21 ursodiol 200 mg capsule 250 mg PO BID cap 04/16/21 08/21/21 ondansetron HCl 4 mg PO Q8H PRN #7 tab 08/21/21 Previous Rx's Medication Instructions Recorded acetaminophen 500 mg PO Q6H PRN #60 tab 05/28/20 methocarbamol 750 mg PO Q8H PRN #10 tab 08/15/20 ondansetron HCl 4 mg PO Q8H PRN #7 tab 08/21/21 Allergies Allergy/AdvReac Type Severity Reaction Status Date / Time amoxicillin Allergy Severe Other (See Verified 08/21/21 15:09 Comment) artichoke Allergy Severe ANAPHYLAXIS Verified 08/21/21 15:09 Penicillins Allergy Intermediate HIVES Verified 08/21/21 15:09 sodium hypochlorite solution Allergy Intermediate HIVES/SOB Verified 08/21/21 15:09 [sodium hypochlorite] adhesive tape Allergy Unverified 08/21/21 15:09 General Stated Complaint: Abd Prob MIKE: 3 Review of Systems Narrative: No known sick contacts. Denies new food exposures. States she is immunized x2 against COVID team. 8 systems were reviewed and otherwise negative, please see HPI. PFSH All Active Problems (Updated 08/21/21 @ 19:27 by Oumar Wong MD) Left ankle sprain (Acute) Dehydration (Acute) Gastroenteritis (Acute) Chest pain (Acute) Gastric bypass status for obesity (Acute) Bipolar 1 disorder (Acute) Seizure disorder (Chronic) Fall (Acute) H/O gastric bypass (Acute) Hypokalemia (Acute) Sinus bradycardia (Acute) Hematemesis (Acute) Right wrist sprain (Acute) Contusion of right forearm (Acute) Sprain of right elbow (Acute) Bradycardia (Acute) Vomiting (Acute) Cubital tunnel syndrome on right (Acute) Medial epicondylitis, right elbow (Acute) Right lateral epicondylitis (Acute) Migraine headache without aura (Acute) Viral illness (Acute) CHAPARRO (nonalcoholic steatohepatitis) (Acute) Medial epicondylitis, left elbow (Acute) Carpal tunnel syndrome on both sides (Acute) Tubular adenoma of colon (Acute 11/26/16) Numbness of left hand (Acute 07/04/17) Migraine (Acute 02/12/14) Elevated lipids (Acute 02/12/14) Diabetes (Acute 02/12/14) diet controlled Cubital tunnel syndrome on left (Acute 09/14/17) 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 (Date of Surgery: 03/02/18 and 10/02/2019) Anxiety and depression (Acute 02/12/14) Medical History Anxiety and depression Asthma Diabetes mellitus, type 2 Elevated lipids Migraine Obstructive sleep apnea syndrome Polycystic ovaries Surgical History anterior cruciate ligament reconstruction section twice Colonoscopy - MAC (11/26/16) EGD - MAC (11/26/16) Endoscopic Carpal Tunnel release (01/14/09) 09/16/2010 REPEAT ECTR RIGHT Ligation of fallopian tube Open Carpal Tunnel release (10/23/12) RIGHT SIDE, left 8.14.14 Vaginal hysterectomy Social History Smoking/Tobacco Use Status: Former Tobacco Use Quit Date: 08/01/05 Smoking risk assessment performed?: Yes Alcohol Intake: never Drug use: Never Substance use type: does not use Household members: spouse and children Housing: other Details: [facility] Current gender identity: female What is your relationship status?: Panel score (0-1 are the most socially isolated patients): 1 Seatbelt use: always Do you feel safe at home: Yes Do you feel safe in your relationship?: Yes Exam Narrative Exam Narrative: GEN: awake, alert, oriented 3. Pleasant, well groomed, interactive. HEAD: Normocephalic, atraumatic ENT: Mucous membranes moist, oropharynx unremarkable, External ear exam unremarkable EYES: PERRL, EOMI NECK: Full ROM, no CARLI, no menigismus CHEST/RESP: Nontender, clear to auscultation bilateral, no wheeze/rhonchi/rales CARDIOVASCULAR: RRR, no murmur, rub melissa. 2+ Rad pulse bilateral ABDOMEN: Soft, minimally tender without rebound or guarding, healed surgical port sites/incisions, no mass. +Bowel sounds EXT: Full ROM, no edema, no rash Neuro: Grossly normal neurologic exam, conversant, interactive. Psych: Speech fluent, thoughts congruent, affect normal Course Vital Signs Vital signs: Vital Signs Temperature 36.3 C L 08/21/21 15:06 Pulse 61 08/21/21 15:06 Respiratory Rate 18 08/21/21 15:06 Blood Pressure 111/45 L 08/21/21 15:06 Pulse Oximetry 97 08/21/21 15:06 Temperature 36.3 C L 08/21/21 15:06 Temperature Source Temporal Artery Scan 08/21/21 15:06 Pulse 61 08/21/21 15:06 Respiratory Rate 18 08/21/21 15:06 Respiratory Effort Non-Labored 08/21/21 15:08 Blood Pressure 111/45 L 08/21/21 15:06 Blood Pressure Position Sitting 08/21/21 15:06 Pulse Oximetry 97 08/21/21 15:06 Oxygen Delivery Method Room Air 08/21/21 15:06 Oxygen Flow Rate 0 08/21/21 15:06 Pain Level 6 08/21/21 15:06
[2021-08-21] MEDS: Normal Saline 1,000 ML 1000 ML IV ×2 (15:33→18:35)
[2021-08-21] MEDS: ACETAMINOPHEN 1,000 MG/100 ML BTL 400 MG IVPB (15:33)
[2021-08-21] MEDS: Ondansetron 4 MG/2 ML VIAL IVP (15:34)
[2021-08-21] MEDS: Normal Saline Flush 10 ML SYR IVP (15:34)
[2021-08-21 15:39] LABS: Abs Immature Grans 0.01 10^3/uL (0.0-0.06); Absolute Basophil Count 0.05 10^3/uL (0.0-0.2); Absolute Eosinophil Count 0.08 10^3/uL (0.0-0.7); Absolute Lymphocyte Count 3.56 10^3/uL (1.2-3.4); Absolute Monocyte Count 0.43 10^3/uL (0.1-0.8); Absolute Neutrophil Count 3.62 10^3/uL (1.2-6.7); Basophils % 0.6; HCT 43.3 % (36.0-46.0); HGB 14.3 g/dL (11.2-15.7); Immature Grans % 0.1; Lymphocytes % 45.9; MCH 28.6 pg (27.0-33.0); MCV 86.6 fL (80-95); MPV 11.3 fL (8.0-11.0); Monocytes % 5.5; Neutrophils % 46.9; Nucleated RBC 0 %; Platelet Count 221 10^3/uL (130-400); RDW 11.7 % (11.7-14.6); RDW-SD 37.2 fL; WBC 7.75 10^3/uL (4.4-10.8)
[2021-08-21 15:47] LABS: Lipase 51 U/L (73-393); Magnesium 1.8 mg/dL (1.8-2.4)
[2021-08-21 15:53] LABS: ALT 26 U/L (14-59); AST 16 U/L (15-37); Albumin 4.2 g/dL (3.4-5.0); Alkaline Phosphatase 101 U/L (46-116); Anion Gap 7.1 mmol/L (3-11); BUN 15 mg/dL (7-18); Bilirubin, Total 0.3 mg/dL (0.2-1.0); CO2 30.9 mmol/L (21.0-32.0); CREATININE 0.7 mg/dL (0.55-1.02); Calcium 9.4 mg/dL (8.5-10.1); Chloride 101 mmol/L (98-107); Glucose 95 mg/dL (74-106); Potassium 3.9 mmol/L (3.5-5.1); Sodium 139 mmol/L (136-145); Total Protein 8.6 g/dL (6.4-8.2)
[2021-08-21 17:10] LABS: Bilirubin Negative (Negative); Blood Negative (Negative); Clarity Clear (Clear); Glucose Negative (Negative); Ketones Negative (Negative); Leukocyte Esterase Negative (Negative); Nitrite Negative (Negative); Urobilinogen 0.2 EU/dL (Up TO 0.2); pH 6.5 (5-8)
[2021-08-21] MEDS: Omnipaque 350 MG/ML 100 ML BTL IJ (17:53)
--- NOTE | 2021-08-21 18:34 | DI.VRAD_ITS ---
PROCEDURE INFORMATION: Exam: CT Abdomen And Pelvis With Contrast Exam date and time: 08/21/2021 3:24 PM Age: 41 years old Clinical indication: Other: Abd pain, n/v S/P rouzenybypass TECHNIQUE: Imaging protocol: Computed tomography of the abdomen and pelvis with contrast. COMPARISON: CT ABDOMEN PELVIS W 01/21/2021 4:58 PM FINDINGS: Liver: 9 mm simple cyst left lobe of the liver . No follow-up imaging recommended . Gallbladder and bile ducts: Normal. No calcified stones. No ductal dilation. Pancreas: Normal. No ductal dilation. Spleen: Again noted are multiple hypodense nodules in the spleen . They were described on prior studies. Adrenal glands: Normal. No mass. Kidneys and ureters: Subcentimeter low attenuation area in the left kidney is too small for characterization. Nonobstructing left renal calculus . Stomach and bowel: Sutures in the stomach consistent with bypass. . No obstruction. No mucosal thickening. Appendix: Normal appendix Intraperitoneal space: Unremarkable. No free air. No significant fluid collection. Vasculature: Unremarkable. No abdominal aortic aneurysm. Lymph nodes: Unremarkable. No enlarged lymph nodes. Urinary bladder: Unremarkable as visualized. Reproductive: Unremarkable as visualized. Bones/joints: Internal fixation device L4/L5 Soft tissues: Unremarkable. IMPRESSION: No acute process Again noted are multiple hypodense nodules in the spleen . They were described on prior studies. Presumably a diagnosis is known Dictated and Authenticated by: Mayra Fall MD. Ordering:SHAHNAZ Oseguera MD
== END 2021-08-21 20:21 | disposition home or self-care (01) ==
PROVIDERS: Emergency Provider Emergency Medicine; PCP Nurse Practitioner Family
DX: E86.0 Dehydration (principal); K52.89 Other specified noninfective gastroenteritis and colitis
CPT/HCPCS: 80053; 83690; 96361; 96374; 96375; 99285; 74177; 81003; 83735; 85025; 99284; J0131; J2405; J3490

== ENCOUNTER 2021-09-30 20:33 | Emergency (ER) | payer MEDICAID, SELFPAY ==
--- NOTE | 2021-09-30 21:00 | DI.RAD_ITS ---
Exam(s) XR FOOT LT COMPLETE EXAM: XR FOOT LT COMPLETE CLINICAL HISTORY: left foot pain, lateral, twist. TECHNIQUE: 2D digital imaging was performed. COMPARISON: CR RIGHT FOOT COMPLETE from 01/10/2018 FINDINGS: BONES: No acute fracture is present. No bony destructive lesion is seen. Small heel spurs. Accessory navicular. Degenerative changes calcaneal cuboid joint. JOINTS: No dislocation present. SOFT TISSUE: Normal. IMPRESSION: No acute abnormality. DATA REPOSITORY: RADIATION DOSE DELIVERED:
[2021-09-30 21:33] VITALS: BP 107/42; PULSE 66; RESP 16; TEMP 36.3; O2SAT 98
--- NOTE | 2021-09-30 21:37 | DI.VRAD_ITS ---
PROCEDURE INFORMATION: Exam: XR Left Foot Exam date and time: 09/30/2021 9:07 PM Age: 41 years old Clinical indication: Pain; Foot; Left; Additional info: Left foot pain TECHNIQUE: Imaging protocol: XR Left foot. Views: 3 or more views. COMPARISON: CR XR ANKLE LT COMPLETE 07/13/2021 1:32 PM FINDINGS: Bones/joints: No evidence of fracture. Negative for dislocation. Negative for bony erosion or destructive change. Unfused accessory ossicle noted at the medial navicular. Soft tissues: Negative for soft tissue air. No foreign bodies observed. IMPRESSION: No acute osseous abnormality. If symptoms persist, follow-up imaging is advised. Dictated and Authenticated by: Dustin Sandy MD. Ordering:ROMINA Boss MD
--- NOTE | 2021-09-30 21:52 | ED.GENADUL_ITS ---
Discharge Plan Disposition Patient Disposition: HOME Condition: Good Discharge Details Clinical Impression: Muscle strain of foot Primary Care Provider: Deyanira Marcus ED Provider: Karyn Goldsmith Home Meds and New Rx's Prescriptions: Continued docusate sodium 100 mg capsule 100 mg PO DAILY PRN0RF sumatriptan succinate 50 mg tablet See Rx Instructions PO .COMPLEX PRN0RF Rx Instructions: take 1 tab at onset of headache; if no relief may repeat 1 tab after at least 2 hrs; max = 4 tabs/24 hr PO albuterol sulfate [ProAir HFA] 90 mcg/actuation HFA aerosol inhaler 2 inh inhalation Q6H PRN0RF Flovent HFA 110 mcg/actuation HFA aerosol inhaler 1 inh inhalation BID 0RF multivitamin Tablet 1 tab PO DAILY 0RF ursodiol 200 mg capsule 250 mg PO BID 0RF pantoprazole 40 mg Tablet,Delayed Release (Dr/Ec) 40 mg PO DAILY 0RF methocarbamol 750 mg tablet 750 mg PO Q8H PRN (Reason: pain) Qty: 10 0RF loratadine 10 mg capsule 10 mg PO DAILY PRN0RF biotin 1 mg Capsule 1 mg PO DAILY 0RF acetaminophen 500 mg tablet 500 mg PO Q6H PRN (Reason: pain) Qty: 60 0RF ondansetron HCl 4 mg tablet 4 mg PO Q8H PRN (Reason: nausea and vomiting) Qty: 7 0RF Discharge Instructions Additional Instructions: Wear your boot as needed Take Tylenol for discomfort With persistent pain in 1 week, reassessment recommended Return earlier with new or worsening complaints Stand Alone Forms: Work Release Referrals: Deyanira Marcus [Primary Care Provider] - Discharge Data Discharge Date/Time-TO BE ENTERED AT DEPARTURE: 09/30/21 22:16 Medical Decision Making Given short walking boot Orthopedic referral Repeat x-ray in 1 week with persistent pain X-ray today does not show evidence acute fracture Return precautions discussed and patient expressed understanding Medical Records Medical records reviewed: Yes I reviewed the patient's medical records. HPI General Date/Time Provider Initiated Documentation: 09/30/21 21:06 . HPI Narrative: This 41-year-old female presents status post twisting injury. She denies any additional injuries. She states that her left lateral foot hurts. She denies any numbness or tingling. She denies any chance of . She denies any knee pain. Related Data Home Medications Medication Instructions Recorded Confirmed pantoprazole 40 mg tablet,delayed 40 mg PO DAILY 05/11/19 09/30/21 release docusate sodium 100 mg capsule 100 mg PO DAILY PRN 08/30/19 09/30/21 sumatriptan succinate 50 mg tablet See Rx Instructions PO .COMPLEX PRN 11/27/19 09/30/21 acetaminophen 500 mg tablet 500 mg PO Q6H PRN #60 tab 05/28/20 09/30/21 methocarbamol 750 mg tablet 750 mg PO Q8H PRN #10 tab 08/15/20 09/30/21 biotin 1 mg capsule 1 mg PO DAILY 01/21/21 09/30/21 loratadine 10 mg capsule 10 mg PO DAILY PRN 01/21/21 09/30/21 albuterol sulfate 90 mcg/actuation 2 inh INHALATION Q6H PRN 03/23/21 09/30/21 aerosol inhaler (ProAir HFA) fluticasone propionate 110 1 inh INHALATION BID 03/23/21 09/30/21 mcg/actuation HFA aerosol inhaler (Flovent HFA) multivitamin 1 tab PO DAILY 03/23/21 09/30/21 ursodiol 200 mg capsule 250 mg PO BID cap 04/16/21 09/30/21 ondansetron HCl 4 mg tablet 4 mg PO Q8H PRN #7 tab 08/21/21 09/30/21 Previous Rx's Medication Instructions Recorded acetaminophen 500 mg tablet 500 mg PO Q6H PRN #60 tab 05/28/20 methocarbamol 750 mg tablet 750 mg PO Q8H PRN #10 tab 08/15/20 ondansetron HCl 4 mg tablet 4 mg PO Q8H PRN #7 tab 08/21/21 Allergies Allergy/AdvReac Type Severity Reaction Status Date / Time amoxicillin Allergy Severe Other (See Verified 09/30/21 21:38 Comment) artichoke Allergy Severe ANAPHYLAXIS Verified 09/30/21 21:38 Penicillins Allergy Intermediate HIVES Verified 09/30/21 21:38 sodium hypochlorite solution Allergy Intermediate HIVES/SOB Verified 09/30/21 21:38 [sodium hypochlorite] adhesive tape Allergy Unverified 09/30/21 21:38 General Stated Complaint: Orthopedic MIKE: 4 Review of Systems Narrative: review of systems Obtained x3 and negative aside from indication in HPI PFSH All Active Problems (Updated 09/30/21 @ 21:55 by MELECIO Paris) Left ankle sprain (Acute) Muscle strain of foot (Acute) Chest pain (Acute) Gastric bypass status for obesity (Acute) Bipolar 1 disorder (Acute) Seizure disorder (Chronic) Fall (Acute) H/O gastric bypass (Acute) Hypokalemia (Acute) Sinus bradycardia (Acute) Hematemesis (Acute) Right wrist sprain (Acute) Contusion of right forearm (Acute) Sprain of right elbow (Acute) Bradycardia (Acute) Vomiting (Acute) Cubital tunnel syndrome on right (Acute) Medial epicondylitis, right elbow (Acute) Right lateral epicondylitis (Acute) Migraine headache without aura (Acute) Viral illness (Acute) CHAPARRO (nonalcoholic steatohepatitis) (Acute) Medial epicondylitis, left elbow (Acute) Carpal tunnel syndrome on both sides (Acute) Tubular adenoma of colon (Acute 11/26/16) Numbness of left hand (Acute 07/04/17) Migraine (Acute 02/12/14) Elevated lipids (Acute 02/12/14) Diabetes (Acute 02/12/14) diet controlled Cubital tunnel syndrome on left (Acute 09/14/17) 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 (Date of Surgery: 03/02/18 and 10/02/2019) Anxiety and depression (Acute 02/12/14) Medical History Anxiety and depression Asthma Diabetes mellitus, type 2 Elevated lipids Migraine Obstructive sleep apnea syndrome Polycystic ovaries Surgical History anterior cruciate ligament reconstruction section twice Colonoscopy - MAC (11/26/16) EGD - MAC (11/26/16) Endoscopic Carpal Tunnel release (01/14/09) 09/16/2010 REPEAT ECTR RIGHT Ligation of fallopian tube Open Carpal Tunnel release (10/23/12) RIGHT SIDE, left 8.14.14 Vaginal hysterectomy Social History Smoking/Tobacco Use Status: Former Tobacco Use Quit Date: 08/01/05 Smoking risk assessment performed?: Yes Alcohol Intake: never Drug use: Never Substance use type: does not use Household members: spouse and children Housing: other Details: trailer Current gender identity: female What is your relationship status?: Panel score (0-1 are the most socially isolated patients): 1 Seatbelt use: always Do you feel safe at home: Yes Do you feel safe in your relationship?: Yes Exam Extrem Other: Tenderness with palpation just distal to lateral malleolus overlying foot, no visible evidence of trauma, no swelling, no crepitus, neurovascularly intact, no tenderness to left knee or left hip Course Vital Signs Vital signs: Vital Signs Temperature 36.3 C L 09/30/21 21:33 Pulse 66 09/30/21 21:33 Respiratory Rate 16 09/30/21 21:33 Blood Pressure 107/42 L 09/30/21 21:33 Pulse Oximetry 98 09/30/21 21:33 Temperature 36.3 C L 09/30/21 21:33 Temperature Source Skin 09/30/21 21:33 Pulse 66 09/30/21 21:33 Respiratory Rate 16 09/30/21 21:33 Respiratory Effort Non-Labored 09/30/21 21:34 Blood Pressure 107/42 L 09/30/21 21:33 Pulse Oximetry 98 09/30/21 21:33 Pain Level 8 09/30/21 21:33
== END 2021-09-30 22:16 | disposition home or self-care (01) ==
PROVIDERS: Emergency Provider Physician Assistant; PCP Nurse Practitioner Family
DX: S96.812A Strain of other specified muscles and tendons at ankle and foot level, left foot, initial encounter (principal); W20.8XXA Other cause of strike by thrown, projected or falling object, initial encounter; Y99.0 Civilian activity done for income or pay
CPT/HCPCS: 29515; 99283; 73630

== ENCOUNTER 2021-10-18 01:09 | Emergency (ER) | payer MEDICAID, SELFPAY ==
--- NOTE | 2021-10-18 01:00 | RT.EKG_ITS ---
APPROVED REPORT Exam: Resting ECG Reason for Exam: chest pain Patient Location: E HR:49 bpm ECG Measurements Heart Rate 49 AXIS OH 162 P 15 QRSd 107 QRS 0 QT 490 T 16 QTc 441 Conclusion Sinus bradycardia...rate< 60 Low voltage, precordial lead Physician: no stemi
[2021-10-18 01:14] VITALS: BP 127/66; PULSE 53; RESP 16; TEMP 36.4; O2SAT 99
--- NOTE | 2021-10-18 01:22 | DI.CT_ITS ---
Exam(s) CT CHEST PE ABD PELVIS W EXAM: CT CHEST PE ABD PELVIS W CLINICAL HISTORY: Pleuritic chest pain/epigastric pain, gastric bypa. TECHNIQUE: Imaging Protocol: Axial CT angiography was performed with multi-slice acquisition and m ulti-planar and/or 3D reconstructions. CONTRAST MATERIAL: Intravenous: Omnipaque 350 Contrast volume:100 ml Oral: None COMPARISON: CT CT ABDOMEN PELVIS W from 08/21/2021 FINDINGS: CHEST: PULMONARY ARTERIES: There are no intra-arterial filling defects to suggest the presence of acute pulm onary emboli. LUNGS: There is no evidence of pulmonary infarction.No confluent infiltrates nor ominous pulmonary no dules. There are no pleural effusions. MEDIASTINUM: There is no hilar nor mediastinal adenopathy. Visualized thyroid unremarkable. CARDIAC: Heart size is normal. There is no pericardial effusion. There is no significant shift of t he interventricular septum.Caliber of the thoracic aorta is within normal limits. No evidence of dis section. OSSEOUS: No significant osseous lesions.. ABDOMEN: There is no ascites. There is evidence of previous surgery in the region of the stomach, possibly ba riatric. No bowel obstruction, free air, nor abscess. LIVER: There are no focal hepatic lesions nor dilatation of intrahepatic ducts. GALLBLADDER/BILIARY: Mildly distended. No wall edema. No calculi. CBD is not dilated. PANCREAS: No evidence of pancreatic mass nor dilatation of the pancreatic duct. SPLEEN: Spleen is not enlarged. There are multiple hypodensities in the spleen again noted, unchange d. ADRENALS: There are no significant adrenal masses. KIDNEYS:There small sub cm cysts in each kidney. There is a nonobstructive calculus in the lower reid e of the left kidney measuring 4 millimeters. No hydronephrosis. No hydroureter. No obvious calcul i in the nondistended urinary bladder.. ABDOMINAL AORTA: Abdominal aorta is not enlarged. LYMPH NODES: There is no retroperitoneal or para-aortic adenopathy. ABDOMINAL WALL/GI: No evidence of significant anterior abdominal wall hernia. No bowel obstruction. PELVIS: LYMPH NODES: There is no intrapelvic nor inguinal adenopathy. GI: No evidence of appendicitis.No evidence of sigmoid diverticulitis. URINARY BLADDER: No calculi nor masses evident REPRODUCTIVE: Uterus surgically absent. No abnormal adnexal masses. OSSEOUS: Lumbar spine fusion surgery. IMPRESSION: 1. No evidence of acute pulmonary emboli nor pulmonary infarction. 2. There are no pleural effusions.No intrathoracic adenopathy. 3. Mildly distended gallbladder. No calculi evident and no gallbladder wall edema. CBD is not dilat ed. 4. Is previously described multiple hypodensities in the spleen are again noted. Spleen is not enlar ged. 5. 4 millimeter nonobstructive calculus in lower pole the left kidney. Small sub cm cysts in both ki dneys. 6. The uterus is surgically absent. There are no abnormal adnexal masses. RADIATION DOSE DELIVERED: 1,147.62mGy.cm Total DLP DATA REPOSITORY: All CT scans at this facility are submitted to the National Radiology Data Registry (NRDR) Dose Index Registry (DIR) with the [employer] ([employer]). RADIATION OPTIMIZATION: All CT scans at this facility use at least one of these dose optimization te chniques: automated exposure control; mA and/or kV adjustment per patient size (includes targeted exa ms where dose is matched to clinical indication); or iterative reconstruction.
[2021-10-18 01:31] LABS: Abs Immature Grans 0.02 10^3/uL (0.0-0.06); HCT 37.8 % (36.0-46.0); HGB 12.9 g/dL (11.2-15.7); MCH 29.7 pg (27.0-33.0); MCHC 34.1 % (32.0-36.0); MCV 87.1 fL (80-95); MPV 10.6 fL (8.0-11.0); Nucleated RBC 0 %; Platelet Count 247 10^3/uL (130-400); RBC 4.34 10^6/uL (3.93-5.22); RDW 12.1 % (11.7-14.6); WBC 10.46 10^3/uL (4.4-10.8)
--- NOTE | 2021-10-18 01:33 | W.ED.GENAD ---
Discharge Plan Disposition Patient Disposition: HOME Condition: Stable Discharge Details Clinical Impression: Acute epigastric pain Primary Care Provider: Deyanira Marcus ED Provider: Adolfo Keller Home Meds and New Rx's Prescriptions: Continued docusate sodium 100 mg capsule 100 mg PO DAILY PRN0RF sumatriptan succinate 50 mg tablet See Rx Instructions PO .COMPLEX PRN0RF Rx Instructions: take 1 tab at onset of headache; if no relief may repeat 1 tab after at least 2 hrs; max = 4 tabs/24 hr PO albuterol sulfate [ProAir HFA] 90 mcg/actuation HFA aerosol inhaler 2 inh inhalation Q6H PRN0RF Flovent HFA 110 mcg/actuation HFA aerosol inhaler 1 inh inhalation BID 0RF multivitamin Tablet 1 tab PO DAILY 0RF ursodiol 200 mg capsule 250 mg PO BID 0RF pantoprazole 40 mg Tablet,Delayed Release (Dr/Ec) 40 mg PO DAILY 0RF methocarbamol 750 mg tablet 750 mg PO Q8H PRN (Reason: pain) Qty: 10 0RF loratadine 10 mg capsule 10 mg PO DAILY PRN0RF biotin 1 mg Capsule 1 mg PO DAILY 0RF acetaminophen 500 mg tablet 500 mg PO Q6H PRN (Reason: pain) Qty: 60 0RF ondansetron HCl 4 mg tablet 4 mg PO Q8H PRN (Reason: nausea and vomiting) Qty: 7 0RF Discharge Instructions Instructions: Abdominal Pain (ED) Additional Instructions: At this time your work-up is very reassuring. There is no evidence of infection in your blood, your kidney function and liver function is normal. There is no evidence of pancreatitis, or heart attack. Your urine shows no signs of infection. The CAT scan shows that your gallbladder is slightly big, but there is no evidence of infection. As we discussed together sometimes the gallbladder spasm and this can cause some mild pain. Please continue to take Tylenol at home as needed. Take the pain pills as needed. Please note that they have some Tylenol in them and so do not take them with Tylenol at the same time. Please stick with a bland easy diet avoiding any fatty greasy tomato-based or spicy foods. If you notice any worsening of your symptoms, or any new symptoms such as vomiting, diarrhea, fever, chills, shortness of breath, chest pain, numbness, weakness, or fainting , please return immediately to the emergency department for reevaluation. Please follow up with your primary care provider as soon as possible for reassessment and reevaluation. As always, it was a pleasure participating in your medical care today. Referrals: Deyanira Marcus [Primary Care Provider] - Medical Decision Making This is a 41-year-old female with past medical history of type 2 diabetes, high cholesterol, obstructive sleep apnea, PCOS, asthma, and a gastric bypass 1 year ago with subsequent snf for esophageal dilatation, as well as previous tubal ligation, and vaginal hysterectomy who presents today for evaluation of acute Discomfort. Patient states that for the last 2 days she has had an epigastric area discomfort which she describes as aching and sometimes stabbing. It is worse after she eats. She has had nausea with 1 or 2 episodes of vomiting. She states that the pain is worse with inspiration. However she denies any chest pain in general, cough, fever, chills, or diarrhea. No urinary complaints. She did take Tylenol and some Tums which minimally improved her symptoms earlier today. But have not improved the symptoms currently. No other complaints at this time. No other modifying factors. Physical exam demonstrates mild epigastric tenderness, no pain or McBurney's point, negative Peñaloza sign. Vital signs stable. EKG shows sinus bradycardia. Symptoms seem inconsistent with ACS or pulmonary etiology, however the location of the pain does make symptoms a little difficult to differentiate. Differential includes complication from her gastric bypass, pancreatitis, and less likely gastritis. Tumor or mass is also on the differential. Gallbladder pathology of consideration. Will give GI cocktail, treat with IV Ofirmev, gently rehydrate, get a CT scan of the affected area, monitor closely and reassess. 3:05 AM Laboratory work-up is returned notably unremarkable. Lipase, cardiac troponin, EKG are all normal. Urinalysis negative. CBC and comprehensive metabolic panel unremarkable. Bilirubin normal, no evidence of transaminitis. CT scan shows no evidence of acute process aside from mildly distended gallbladder. Repeat exam continues to show no evidence of acute surgical abdomen. Patient has no right upper quadrant tenderness. Tenderness appears to be more located in the left upper quadrant and epigastric region. Patient has tolerated p.o. well, has had no vomiting here. Symptoms are inconsistent with pancreatitis, severe upper GI bleed, ACS, pulmonary embolism, aortic aneurysm or dissection. Symptoms may be from mild hernia gastric ulcer unlikely as there is no significant change after GI cocktail. With no evidence of significant surgical or life-threatening etiology being present at this time, I do feel that the patient is stable for discharge with close outpatient follow-up and or prompt return if she has worsening or changing her symptoms. I did recommend to the patient that she stick with a bland brat diet for the next 48 hours. Patient declined morphine here. Recommend continued Tylenol at home. Discussed red flags for which to return. I have extensively reviewed the treatment plan and discharge instructions with the patient. I have addressed all patient concerns at this time. The patient was made aware of what symptoms to monitor for that would warrant a return to the emergency department. Discussed the plan with the patient, they demonstrate verbal understanding and agreement with our assessment and plan at this time. The documentation in this chart was dictated using [employer] dictation software. Please excuse any dictation errors. FINDINGS: Liver: There is diffuse decrease in hepatic parenchymal density, consistent with mild fatty infiltration. No mass. Gallbladder and bile ducts: Gallbladder minimally distended. No gallbladder wall thickening or calcified gallstones. No biliary ductal dilatation. Pancreas: Normal. No ductal dilation. Spleen: Multiple areas or lesions of diminished enhancement in spleen as previously demonstrated. No splenomegaly. Adrenal glands: Normal. No mass. Kidneys and ureters: Stable simple cysts in each kidney measuring approximately a cm. Minute left renal calculus. No hydronephrosis. Stomach and bowel: Status post gastric bypass Appendix: Normal appendix. Intraperitoneal space: No free intraperitoneal gas or ascites. Vasculature: Unremarkable. No abdominal aortic aneurysm. Lymph nodes: Unremarkable. No enlarged lymph nodes. Urinary bladder: Unremarkable as visualized. Reproductive: Prior hysterectomy. Bones/joints: The spine demonstrates mild degenerative changes at multiple levels. Status post L5- S1 posterior fusion and decompression procedures. Lucent areas in right iliac bone, possibly as result of harvesting of bone graft material. Soft tissues: Unremarkable. IMPRESSION: 1. The gallbladder is distended but otherwise normal. Gallbladder distention is a nonspecific finding and can be related to patient fasting state. Correlate clinically. 2. Several non emergent findings. Thank you for allowing us to participate in the care of your patient. Dictated and Authenticated by: Ellis Burton DO 10/18/2021 2:36 AM Eastern Time ([place] & [place]) HPI General Date/Time Provider Initiated Documentation: 10/18/21 01:12. HPI Narrative: This is a 41-year-old female with past medical history of type 2 diabetes, high cholesterol, obstructive sleep apnea, PCOS, asthma, and a gastric bypass 1 year ago with subsequent snf for esophageal dilatation, as well as previous tubal ligation, and vaginal hysterectomy who presents today for evaluation of acute Discomfort. Patient states that for the last 2 days she has had an epigastric area discomfort which she describes as aching and sometimes stabbing. It is worse after she eats. She has had nausea with 1 or 2 episodes of vomiting. She states that the pain is worse with inspiration. However she denies any chest pain in general, cough, fever, chills, or diarrhea. No urinary complaints. She did take Tylenol and some Tums which minimally improved her symptoms earlier today. But have not improved the symptoms currently. No other complaints at this time. No other modifying factors. Related Data Home Medications Medication Instructions Recorded Confirmed pantoprazole 40 mg tablet,delayed 40 mg PO DAILY 05/11/19 10/18/21 release docusate sodium 100 mg capsule 100 mg PO DAILY PRN 08/30/19 10/18/21 sumatriptan succinate 50 mg tablet See Rx Instructions PO .COMPLEX PRN 11/27/19 10/18/21 acetaminophen 500 mg tablet 500 mg PO Q6H PRN #60 tab 05/28/20 10/18/21 methocarbamol 750 mg tablet 750 mg PO Q8H PRN #10 tab 08/15/20 10/18/21 biotin 1 mg capsule 1 mg PO DAILY 01/21/21 10/18/21 loratadine 10 mg capsule 10 mg PO DAILY PRN 01/21/21 10/18/21 albuterol sulfate 90 mcg/actuation 2 inh INHALATION Q6H PRN 03/23/21 10/18/21 aerosol inhaler (ProAir HFA) fluticasone propionate 110 1 inh INHALATION BID 03/23/21 10/18/21 mcg/actuation HFA aerosol inhaler (Flovent HFA) multivitamin 1 tab PO DAILY 03/23/21 10/18/21 ursodiol 200 mg capsule 250 mg PO BID cap 04/16/21 10/18/21 ondansetron HCl 4 mg tablet 4 mg PO Q8H PRN #7 tab 08/21/21 10/18/21 Previous Rx's Medication Instructions Recorded acetaminophen 500 mg tablet 500 mg PO Q6H PRN #60 tab 05/28/20 methocarbamol 750 mg tablet 750 mg PO Q8H PRN #10 tab 08/15/20 ondansetron HCl 4 mg tablet 4 mg PO Q8H PRN #7 tab 08/21/21 Allergies Allergy/AdvReac Type Severity Reaction Status Date / Time amoxicillin Allergy Severe Other (See Verified 10/18/21 01:19 Comment) artichoke Allergy Severe ANAPHYLAXIS Verified 10/18/21 01:19 Penicillins Allergy Intermediate HIVES Verified 10/18/21 01:19 sodium hypochlorite solution Allergy Intermediate HIVES/SOB Verified 10/18/21 01:19 [sodium hypochlorite] adhesive tape Allergy Unverified 10/18/21 01:19 General Stated Complaint: Abd Prob MIKE: 3 Review of Systems All systems reviewed & are unremarkable except as noted in HPI and below PFSH All Active Problems (Updated 10/18/21 @ 02:56 by Adolfo Keller DO) Left ankle sprain (Acute) Muscle strain of foot (Acute) Acute epigastric pain (Acute) Chest pain (Acute) Gastric bypass status for obesity (Acute) Bipolar 1 disorder (Acute) Seizure disorder (Chronic) Fall (Acute) H/O gastric bypass (Acute) Hypokalemia (Acute) Sinus bradycardia (Acute) Hematemesis (Acute) Right wrist sprain (Acute) Contusion of right forearm (Acute) Sprain of right elbow (Acute) Bradycardia (Acute) Vomiting (Acute) Cubital tunnel syndrome on right (Acute) Medial epicondylitis, right elbow (Acute) Right lateral epicondylitis (Acute) Migraine headache without aura (Acute) Viral illness (Acute) CHAPARRO (nonalcoholic steatohepatitis) (Acute) Medial epicondylitis, left elbow (Acute) Carpal tunnel syndrome on both sides (Acute) Tubular adenoma of colon (Acute 11/26/16) Numbness of left hand (Acute 07/04/17) Migraine (Acute 02/12/14) Elevated lipids (Acute 02/12/14) Diabetes (Acute 02/12/14) diet controlled Cubital tunnel syndrome on left (Acute 09/14/17) 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 (Date of Surgery: 03/02/18 and 10/02/2019) Anxiety and depression (Acute 02/12/14) Medical History Anxiety and depression Asthma Diabetes mellitus, type 2 Elevated lipids Migraine Obstructive sleep apnea syndrome Polycystic ovaries Surgical History anterior cruciate ligament reconstruction section twice Colonoscopy - MAC (11/26/16) EGD - MAC (11/26/16) Endoscopic Carpal Tunnel release (01/14/09) 09/16/2010 REPEAT ECTR RIGHT Ligation of fallopian tube Open Carpal Tunnel release (10/23/12) RIGHT SIDE, left 8.14.14 Vaginal hysterectomy Social History Smoking/Tobacco Use Status: Former Tobacco Use Quit Date: 08/01/05 Smoking risk assessment performed?: Yes Alcohol Intake: never Drug use: Never Substance use type: does not use Household members: spouse and children Housing: other Details: trail Current gender identity: female What is your relationship status?: Panel score (0-1 are the most socially isolated patients): 1 Seatbelt use: always Do you feel safe at home: Yes Do you feel safe in your relationship?: Yes Exam Narrative Exam Narrative: 1.Const: Well-nourished, Well-developed, appearing stated age 2.Eyes: PERRL, no conjunctival injection, and symmetrical lids. 3.ENT: Atraumatic external nose and ears. Moist MM. Neck: Symmetric, trachea midline, No thyromegaly. 4.CVS: +S1/S2, No murmurs or gallops. Peripheral pulses 2+ and equal in all extremities. Brisk capillary refill in all extremities. 5.RESP: Unlabored respiratory effort. Clear to auscultation bilaterally. No wheezes rales or rhonchi 6.GI: Soft, nondistended, mild epigastric discomfort on palpation. No pain to McBurney's point, negative Peñaloza sign. 7.MSK: Normocephalic/Atraumatic, Extremities w/o deformity or ttp No cyanosis or clubbing, Normal movement of all extremities 8.Skin: Warm, Dry. No rashes or lesions. 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 Sensation grossly intact, no focal neurologic deficits. 10.Psych: (AAO) x3. Appropriate mood and affect Course Vital Signs Vital signs: Vital Signs Temperature 36.4 C L 10/18/21 01:14 Pulse 53 L 10/18/21 01:14 Respiratory Rate 16 10/18/21 01:14 Blood Pressure 127/66 10/18/21 01:14 Pulse Oximetry 99 10/18/21 01:14 Temperature 36.4 C L 10/18/21 01:14 Pulse 53 L 10/18/21 01:14 Respiratory Rate 16 10/18/21 01:14 Respiratory Effort Non-Labored 10/18/21 01:20 Blood Pressure 127/66 10/18/21 01:14 Pulse Oximetry 99 10/18/21 01:14 Oxygen Delivery Method Room Air 10/18/21 01:14 Oxygen Flow Rate 0 10/18/21 01:14 Pain Level 7 10/18/21 01:14
[2021-10-18] MEDS: Normal Saline 1,000 ML 1000 ML IV (01:40)
[2021-10-18] MEDS: ACETAMINOPHEN 1,000 MG/100 ML BTL 400 MG IVPB (01:40)
[2021-10-18 01:44] LABS: Lipase 46 U/L (73-393)
[2021-10-18] MEDS: Omnipaque 350 MG/ML 100 ML BTL IJ (01:44)
[2021-10-18 01:51] LABS: Bilirubin Negative (Negative); Blood Negative (Negative); Clarity Sl Cloudy (Clear); Glucose Negative (Negative); Ketones Negative (Negative); Leukocyte Esterase Negative (Negative); Nitrite Negative (Negative); Specific Gravity >= 1.030 (1.005-1.025); Urobilinogen 0.2 EU/dL (Up TO 0.2)
[2021-10-18 01:56] LABS: ALT 19 U/L (14-59); AST 12 U/L (15-37); Albumin 4.1 g/dL (3.4-5.0); Alkaline Phosphatase 77 U/L (46-116); Anion Gap 6.5 mmol/L (3-11); BUN 13 mg/dL (7-18); Bilirubin, Total 0.5 mg/dL (0.2-1.0); CO2 30.5 mmol/L (21.0-32.0); CREATININE 0.7 mg/dL (0.55-1.02); Calcium 9.5 mg/dL (8.5-10.1); Chloride 106 mmol/L (98-107); Glucose 81 mg/dL (74-106); Potassium 3.6 mmol/L (3.5-5.1); Sodium 143 mmol/L (136-145); Total Protein 7.9 g/dL (6.4-8.2); Troponin I < 50 ng/L (<or=60)
[2021-10-18 01:57] LABS: Absolute Lymphocyte Count 5.44 10^3/uL (1.2-3.4); Absolute Monocyte Count 0.84 10^3/uL (0.1-0.8); Absolute Neutrophil Count 4.18 10^3/uL (1.2-6.7); Atypical Lymphocytes % 4
[2021-10-18 01:58] LABS: Diff Comment Manual Differential; RBC Morphology Normal
--- NOTE | 2021-10-18 02:37 | DI.VRAD_ITS ---
PROCEDURE INFORMATION: Exam: CTA Chest With Contrast Exam date and time: 10/18/2021 1:41 AM Age: 41 years old Clinical indication: Abdominal pain; Pleuordynia; Prior surgery; Patient HX: Pleuritic chest pain/epigastric pain; Additional info: Gastric bypass TECHNIQUE: Imaging protocol: Computed tomographic angiography of the chest with contrast. 3D rendering (Not supervised by radiologist): MIP and/or 3D reconstructed images were created by the technologist. Other technique: The examination is technically less than ideal due to patient body habitus. COMPARISON: CT ABDOMEN PELVIS W 08/21/2021 5:54 PM FINDINGS: Pulmonary arteries: No pulmonary artery filling defects. Aorta: Unremarkable. No aortic aneurysm. No aortic dissection. Lungs: Unremarkable. No consolidation. No masses. Pleural spaces: Unremarkable. No pneumothorax. No pleural effusion. Heart: Heart normal in size. Heart RV/LV ratio: RV/LV ratio less than 1. Lymph nodes: Unremarkable. No enlarged lymph nodes. Diaphragm: Small hiatal hernia. Bones/joints: The spine demonstrates mild degenerative changes at multiple levels. Soft tissues: Unremarkable. IMPRESSION: 1. No pulmonary artery embolism demonstrated. 2. No aortic aneurysm or dissection. 3. Small hiatal hernia. PROCEDURE INFORMATION: Exam: CT Abdomen And Pelvis With Contrast Exam date and time: 10/18/2021 1:41 AM Age: 41 years old Clinical indication: Abdominal pain; Pleuordynia; Prior surgery; Patient HX: Pleuritic chest pain/epigastric pain; Additional info: Gastric bypass TECHNIQUE: Imaging protocol: Computed tomography of the abdomen and pelvis with contrast. COMPARISON: CT ABDOMEN PELVIS W 08/21/2021 5:54 PM FINDINGS: Liver: There is diffuse decrease in hepatic parenchymal density, consistent with mild fatty infiltration. No mass. Gallbladder and bile ducts: Gallbladder minimally distended. No gallbladder wall thickening or calcified gallstones. No biliary ductal dilatation. Pancreas: Normal. No ductal dilation. Spleen: Multiple areas or lesions of diminished enhancement in spleen as previously demonstrated. No splenomegaly. Adrenal glands: Normal. No mass. Kidneys and ureters: Stable simple cysts in each kidney measuring approximately a cm. Minute left renal calculus. No hydronephrosis. Stomach and bowel: Status post gastric bypass Appendix: Normal appendix. Intraperitoneal space: No free intraperitoneal gas or ascites. Vasculature: Unremarkable. No abdominal aortic aneurysm. Lymph nodes: Unremarkable. No enlarged lymph nodes. Urinary bladder: Unremarkable as visualized. Reproductive: Prior hysterectomy. Bones/joints: The spine demonstrates mild degenerative changes at multiple levels. Status post L5-S1 posterior fusion and decompression procedures. Lucent areas in right iliac bone, possibly as result of harvesting of bone graft material. Soft tissues: Unremarkable. IMPRESSION: 1. The gallbladder is distended but otherwise normal. Gallbladder distention is a nonspecific finding and can be related to patient fasting state. Correlate clinically. 2. Several non emergent findings. Dictated and Authenticated by: Ellis Burton MD. Ordering:NATHAN Mata MD
[2021-10-18 02:38] VITALS: BP 118/64; PULSE 43; PULSE 47; RESP 16; O2SAT 98
[2021-10-18 02:39] VITALS: PULSE 44; RESP 14; O2SAT 100
[2021-10-18 02:40] VITALS: PULSE 45; RESP 15; O2SAT 100
[2021-10-18 02:46] VITALS: BP 125/49; PULSE 50; PULSE 61; RESP 16; O2SAT 100
[2021-10-18 02:50] VITALS: PULSE 54; RESP 18; O2SAT 100
[2021-10-18] MEDS: Ketorolac 15 MG/ML VIAL 10 MG IVP (03:01)
== END 2021-10-18 03:18 | disposition home or self-care (01) ==
PROVIDERS: Emergency Provider Student in an Organized Health Care Education/Training Program; PCP Nurse Practitioner Family
DX: R10.13 Epigastric pain (principal); R07.9 Chest pain, unspecified
CPT/HCPCS: 36415; 71275; 74177; 80053; 81025; 83690; 93005; 96361; 96365; 96375; 99285; 81003; 84484; 85025; 93010; 99284; J0131; J1885; J3490

== ENCOUNTER 2021-11-24 14:13 | Outpatient (REF) | payer MEDICAID, SELFPAY ==
[2021-11-24 17:13] LABS: Magnesium 1.9 mg/dL (1.8-2.4)
[2021-11-25 05:35] LABS: Vitamin B12 340 pg/mL (193-986)
[2021-11-26 08:48] LABS: Anion Gap 11.1 mmol/L (3-11); BUN 14 mg/dL (7-18); CO2 25.9 mmol/L (21.0-32.0); CREATININE 0.6 mg/dL (0.55-1.02); Calcium 9.8 mg/dL (8.5-10.1); Chloride 104 mmol/L (98-107); Glucose 90 mg/dL (74-106); Potassium 4.1 mmol/L (3.5-5.1); Sodium 141 mmol/L (136-145)
== END 2021-11-24 14:14 | disposition home or self-care (01) ==
LOC: NCHCN 14:13
PROVIDERS: PCP Nurse Practitioner Family; Visit Provider Nurse Practitioner Family
DX: R20.2 Paresthesia of skin (principal); E83.42 Hypomagnesemia; E27.0 Other adrenocortical overactivity; F31.9 Bipolar disorder, unspecified; K21.9 Gastro-esophageal reflux disease without esophagitis; R11.0 Nausea; E11.9 Type 2 diabetes mellitus without complications
CPT/HCPCS: 80048; 82607; 83036; 83735

== ENCOUNTER 2021-12-17 10:56 | Emergency (ER) | payer MEDICAID, SELFPAY ==
[2021-12-17] VITALS (63 sets, daily range): BP systolic 93–117; BP diastolic 42–67; PULSE 48–62; RESP 0–27; TEMP 36.1; O2SAT 97–100
--- NOTE | 2021-12-17 11:00 | RT.EKG_ITS ---
APPROVED REPORT Exam: Resting ECG Reason for Exam: CHEST PAIN Patient Location: E HR:59 bpm ECG Measurements Heart Rate 59 AXIS NV 164 P -5 QRSd 100 QRS 15 QT 424 T 45 QTc 421 Conclusion Sinus bradycardia...rate< 60. Sinus. No STEMI. I have reviewed and interpreted ECG and agree with software generated interpretation.
--- NOTE | 2021-12-17 11:15 | DI.US_ITS ---
Exam(s) US ABDOMEN LIMITED EXAM: US ABDOMEN LIMITED CLINICAL HISTORY: Epigastric/RUQ pain TECHNIQUE: Ultrasound abdomen performed using standard protocol. COMPARISON: CT CT CHEST PE ABD PELVIS W from 10/18/2021 FINDINGS: PANCREAS: Normal where visualized. LIVER: There is diffuse increased echogenicity of the liver consistent with fatty infiltration. Hepa topedal flow in the Portal Vein. The liver measures in 15.4 cm length. GALLBLADDER: No evidence of cholelithiasis. No evidence of wall thickening. No pericholecystic fluid identified. BILIARY SYSTEM: Common bile duct measures < 7 mm. No intrahepatic biliary ductal dilation. STOKES'S SIGN: Negative. RIGHT KIDNEY: Kidney is normal in size. No evidence of renal calculi. No evidence of hydronephrosis. There is a 0.7 cm simple cyst in the superior pole of the right kidney. No follow-up is recommended . ASCITES: None seen. IMPRESSION: Hepatic steatosis. DATA REPOSITORY:
--- NOTE | 2021-12-17 11:15 | DI.RAD_ITS ---
Exam(s) XR CHEST 2V PA LATERAL EXAM: XR CHEST 2V PA LATERAL CLINICAL HISTORY: Chest pain TECHNIQUE: 2D digital imaging was performed of the chest. Two images were obtained. PA and lateral views were obtained. COMPARISON: CR XR RIBS LT W PA LAT CHEST from 08/15/2020 FINDINGS: MEDIASTINUM: Normal. HEART: Normal. PULMONARY VASCULATURE: Normal. LUNGS: Clear. PLEURAL SPACE: No pleural effusion or pneumothorax. BONE:Within normal limits for the patient's age. OTHER FINDINGS:Normal. IMPRESSION: No acute pulmonary findings. DATA REPOSITORY: RADIATION DOSE DELIVERED:
[2021-12-17] MEDS: Normal Saline 1,000 ML 1000 ML IV (12:04)
[2021-12-17 12:11] LABS: Abs Immature Grans 0.03 10^3/uL (0.0-0.06); Absolute Basophil Count 0.04 10^3/uL (0.0-0.2); Absolute Eosinophil Count 0.04 10^3/uL (0.0-0.7); Absolute Lymphocyte Count 2.69 10^3/uL (1.2-3.4); Absolute Monocyte Count 0.49 10^3/uL (0.1-0.8); Absolute Neutrophil Count 4.97 10^3/uL (1.2-6.7); Basophils % 0.5; Eosinophils % 0.5; HCT 41.6 % (36.0-46.0); Immature Grans % 0.4; Lymphocytes % 32.6; MCH 29.7 pg (27.0-33.0); MCHC 33.7 % (32.0-36.0); MCV 88 fL (80-95); MPV 10.7 fL (8.0-11.0); Monocytes % 5.9; Neutrophils % 60.1; Platelet Count 258 10^3/uL (130-400); RBC 4.71 10^6/uL (3.93-5.22); RDW 11.9 % (11.7-14.6); RDW-SD 38.5 fL; WBC 8.26 10^3/uL (4.4-10.8)
--- NOTE | 2021-12-17 12:16 | NUR.NOTE ---
Nursing Note: Pt transported to DI by tech.
[2021-12-17 12:26] LABS: ALT 23 U/L (14-59); AST 12 U/L (15-37); Albumin 3.7 g/dL (3.4-5.0); Alkaline Phosphatase 89 U/L (46-116); Anion Gap 4.4 mmol/L (3-11); BUN 10 mg/dL (7-18); Bilirubin, Total 0.3 mg/dL (0.2-1.0); CO2 29.6 mmol/L (21.0-32.0); CREATININE 0.7 mg/dL (0.55-1.02); Chloride 104 mmol/L (98-107); Glucose 86 mg/dL (74-106); Lipase 48 U/L (73-393); Magnesium 2.2 mg/dL (1.8-2.4); Sodium 138 mmol/L (136-145); Total Protein 7.8 g/dL (6.4-8.2); Troponin I < 50 ng/L (<or=60)
[2021-12-17] MEDS: Ondansetron 4 MG/2 ML VIAL IVP (13:06)
[2021-12-17] MEDS: ACETAMINOPHEN 1,000 MG/100 ML BTL 400 MG IVPB (14:38)
--- NOTE | 2021-12-17 14:38 | W.ED.GENAD ---
Discharge Plan Disposition Patient Disposition: HOME Condition: Stable Discharge Details Clinical Impression: Esophagitis, Vomiting Primary Care Provider: Deyanira Marcus ED Provider: Padilla Combs Home Meds and New Rx's Prescriptions: New sucralfate [Carafate] 100 mg/mL suspension 10 ml PO BID Qty: 200 1RF Continued docusate sodium 100 mg capsule 100 mg PO DAILY PRN sumatriptan succinate 50 mg tablet See Rx Instructions PO .COMPLEX PRN Rx Instructions: take 1 tab at onset of headache; if no relief may repeat 1 tab after at least 2 hrs; max = 4 tabs/24 hr PO albuterol sulfate [ProAir HFA] 90 mcg/actuation HFA aerosol inhaler 2 inh inhalation Q6H PRN Flovent HFA 110 mcg/actuation HFA aerosol inhaler 1 inh inhalation BID multivitamin Tablet 1 tab PO DAILY lisinopril 5 mg tablet 5 mg PO DAILY ursodiol 200 mg capsule 250 mg PO DAILY magnesium L-lactate [Magtab] 84 mg tablet extended release 84 mg PO DAILY febuxostat [Uloric] 40 mg tablet 40 mg PO BID atorvastatin 40 mg tablet 40 mg PO QHS biotin 1 mg capsule 1 mg PO BID divalproex 250 mg tablet,delayed release (DR/EC) 250 mg PO BID qrnrmzatummg-Tz-ebar-minerals 18-0.4 mg tablet PO pantoprazole 40 mg Tablet,Delayed Release (Dr/Ec) 40 mg PO DAILY loratadine 10 mg capsule 10 mg PO DAILY PRN acetaminophen 500 mg tablet 500 mg PO Q6H PRN (Reason: pain) Qty: 60 0RF ondansetron HCl 4 mg tablet 4 mg PO Q8H PRN (Reason: nausea and vomiting) Qty: 7 0RF Discharge Instructions Instructions: Esophagitis (ED) Additional Instructions: During today's visit there were no emergent findings for any cardiac or respiratory cause to your chest pain. Given your recent vomiting along with your history of gastric surgery there is suspicion for irritation to your esophagus. There were no emergent findings but it is very important that you follow-up with your gastroenterology doctor at [facility]. In the meantime please stay well-hydrated, continue to take your normally prescribed medications and eat small frequent meals avoiding trigger foods. If you have any new or significant worsening of your symptoms feel free to return to the emergency department for reassessment Stand Alone Forms: Work Release Referrals: [facility] [Outside] (Call your gastroenterology office for arrangement of follow-up appointment) Discharge Data Discharge Date/Time-TO BE ENTERED AT DEPARTURE: 12/17/21 16:08 Medical Decision Making Patient presented with chest pain of uncertain etiology. Patient reports vomiting for the past 4 days but then 2 days ago started having burning chest pain. Vomiting has mostly resolved but chest pain has continued. Patient reports that vomiting is coming to her since having gastric bypass surgery but chest pain is new. Patient denies any acid reflux. Physical exam is positive for epigastric tenderness along with some mild right upper quadrant pain. Otherwise no worrisome findings and patient is in stable condition. Plan to check standard cardiac labs including 2 troponins, given review of previous records that shows distended gallbladder we will plan on adding on lipase to standard labs along with performing ultrasound of gallbladder. Will give patient nausea medication fluids and GI cocktail pending results. Please see physician interpretation of EKG for full review but EKG shows sinus rhythm, no acute signs of STEMI, nondiagnostic per patient's reported illness. Lab analysis, EKG (which showed no evidence of ischemia or infarction), and imaging, in addition to the patient's physical exam, I see no evidence at this time for a malignant etiology for the patient's chest pain. There is no acute evidence or suspicion for pulmonary embolus, acute myocardial infarction, pneumothorax, esophageal rupture, cardiac tamponade, thoracic artery dissection, or any other emergent cardiac, pulmonary or aortic pathology at this time. Labs are nondiagnostic and no emergent findings noted, patient has 2 negative delta troponins. I highly suspect that patient is suffering from esophagitis secondary to vomiting. Given patient's history of gastric bypass along with need for esophageal ballooning patient was recommended to follow-up with [facility] for further testing and treatment as needed. We will start patient on trial of Carafate given that she is already on Protonix. The patient understands that at this time there is no evidence for a more malignant underlying process, but the patient also understands that early in the process of an illness, an emergency department workup can be falsely reassuring. Routine discharge counseling was given to the patient and the patient understands that worsening, changing, or persistent symptoms should prompt an immediate call or follow up with their primary physician or the emergency department immediately. The importance of close follow up was also discussed with the patient. Lab Data Lab results reviewed: Yes I reviewed the patient's lab results. Labs: Laboratory Tests Range/Units 12/17/21 12/17/21 12/17/21 12:00 12:00 15:05 WBC (4.4-10.8) 10^3/uL 8.26 RBC (3.93-5.22) 10^6/uL 4.71 Hgb (11.2-15.7) g/dL 14.0 Hct (36.0-46.0) % 41.6 MCV (80-95) fL 88 MCH (27.0-33.0) pg 29.7 MCHC (32.0-36.0) % 33.7 RDW (11.7-14.6) % 11.9 Plt Count (130-400) 10^3/uL 258 MPV (8.0-11.0) fL 10.7 Immature Gran % 0.4 Neutrophils % 60.1 Lymphocytes % 32.6 Monocytes % 5.9 Eosinophils % 0.5 Basophils % 0.5 Nucleated RBC % (0.0-0.3) % 0.0 Absolute Neutrophils (1.2-6.7) 10^3/uL 4.97 Absolute Lymphocytes (1.2-3.4) 10^3/uL 2.69 Absolute Monocytes (0.1-0.8) 10^3/uL 0.49 Absolute Eosinophils (0.0-0.7) 10^3/uL 0.04 Absolute Basophils (0.0-0.2) 10^3/uL 0.04 Sodium (136-145) mmol/L 138 Potassium (3.5-5.1) mmol/L 4.0 Chloride (98-107) mmol/L 104 Carbon Dioxide (21.0-32.0) mmol/L 29.6 Anion Gap (3-11) mmol/L 4.4 BUN (7-18) mg/dL 10 Creatinine (0.55-1.02) mg/dL 0.7 Estimated GFR/1.73 m2 (mL/min/1.73m2) >= 60.00 Glucose (74-106) mg/dL 86 Calcium (8.5-10.1) mg/dL 9.0 Magnesium (1.8-2.4) mg/dL 2.2 Total Bilirubin (0.2-1.0) mg/dL 0.3 AST (15-37) U/L 12 L ALT (14-59) U/L 23 Alkaline Phosphatase (46-116) U/L 89 Troponin I (<or=60) ng/L < 50 < 50 Total Protein (6.4-8.2) g/dL 7.8 Albumin (3.4-5.0) g/dL 3.7 Lipase (73-393) U/L 48 HPI General Mode of arrival: ambulatory. Date/Time Provider Initiated Documentation: 12/17/21 10:57. Limitations to Documentation: no limitations. Information obtained by: patient, RN notes reviewed and old records reviewed. History of Present Illness 41 year old F presents to the emergency department with the chief complaint of chest pain, described as moderate, with intensity rated at 6. Quality is described as burning, and is localized to the chest. Patient reports no radiation. Patient started experiencing this day(s) (2) and it has been constant. No relieving factors improve symptom(s), No exacerbating factors reported . Patient notes nausea/vomiting. Patient did receive the following treatments prior to arrival, none Related Data Home Medications Medication Instructions Recorded Confirmed pantoprazole 40 mg tablet,delayed 40 mg PO DAILY 05/11/19 12/17/21 release docusate sodium 100 mg capsule 100 mg PO DAILY PRN 08/30/19 12/17/21 sumatriptan succinate 50 mg tablet See Rx Instructions PO .COMPLEX PRN 11/27/19 12/17/21 acetaminophen 500 mg tablet 500 mg PO Q6H PRN pain #60 tabs 05/28/20 12/17/21 loratadine 10 mg capsule 10 mg PO DAILY PRN 01/21/21 12/17/21 albuterol sulfate 90 mcg/actuation 2 inh inhalation Q6H PRN 03/23/21 12/17/21 aerosol inhaler (ProAir HFA) fluticasone propionate 110 1 inh inhalation BID 03/23/21 12/17/21 mcg/actuation HFA aerosol inhaler (Flovent HFA) multivitamin 1 tab PO DAILY 03/23/21 12/17/21 ondansetron HCl 4 mg tablet 4 mg PO Q8H PRN nausea and 08/21/21 12/17/21 vomiting #7 tabs atorvastatin 40 mg tablet 40 mg PO QHS 10/22/21 12/17/21 biotin 1 mg capsule 1 mg PO BID 10/22/21 12/17/21 divalproex 250 mg tablet,delayed 250 mg PO BID 10/22/21 12/17/21 release febuxostat 40 mg tablet (Uloric) 40 mg PO BID 10/22/21 12/17/21 lisinopril 5 mg tablet 5 mg PO DAILY 10/22/21 12/17/21 magnesium L-lactate 84 mg 84 mg PO DAILY 10/22/21 12/17/21 tablet,extended release (Magtab) gfjdgimozeoy-Lz-crtb-minerals 18 tab PO 10/22/21 mg-0.4 mg tablet ursodiol 200 mg capsule 250 mg PO DAILY 10/22/21 12/17/21 sucralfate 100 mg/mL oral 10 ml PO BID #200 mL 12/17/21 suspension (Carafate) Previous Rx's Medication Instructions Recorded acetaminophen 500 mg tablet 500 mg PO Q6H PRN pain #60 tabs 05/28/20 ondansetron HCl 4 mg tablet 4 mg PO Q8H PRN nausea and 08/21/21 vomiting #7 tabs sucralfate 100 mg/mL oral 10 ml PO BID #200 mL 12/17/21 suspension (Carafate) Allergies Allergy/AdvReac Type Severity Reaction Status Date / Time amoxicillin Allergy Severe Other (See Verified 12/17/21 11:15 Comment) artichoke Allergy Severe ANAPHYLAXIS Verified 12/17/21 11:15 Penicillins Allergy Intermediate HIVES Verified 12/17/21 11:15 sodium hypochlorite solution Allergy Intermediate HIVES/SOB Verified 12/17/21 11:15 [sodium hypochlorite] adhesive tape Allergy Unverified 12/17/21 11:15 General Stated Complaint: Chest Pain MIKE: 2 Review of Systems Constitutional Constitutional: Denies chills, Denies fever(s) and Denies malaise Cardiovascular Cardiovascular: Reports as per HPI, Reports chest pain, Denies chest pain with activity, Denies syncope, Denies irregular heart rhythm, Denies palpitations and Denies dyspnea Respiratory Respiratory: Denies cough, Denies hemoptysis and Denies dyspnea Gastrointestinal Gastrointestinal: Reports abdominal pain, Denies dyspepsia, Denies heartburn, Denies diarrhea, Denies nausea and Reports vomiting Neurologic Neurologic: Denies syncope Psychiatric Psychiatric: Denies anxiety Endocrine Endocrine: Denies cold intolerance, Denies heat intolerance and Denies palpitations PFSH All Active Problems (Updated 12/17/21 @ 15:49 by Padilla Combs NP) Esophagitis (Acute) Left ankle sprain (Acute) Chest pain (Acute) Gastric bypass status for obesity (Acute) Bipolar 1 disorder (Acute) Seizure disorder (Chronic) Fall (Acute) H/O gastric bypass (Acute) Hypokalemia (Acute) Sinus bradycardia (Acute) Hematemesis (Acute) Right wrist sprain (Acute) Contusion of right forearm (Acute) Sprain of right elbow (Acute) Bradycardia (Acute) Vomiting (Acute) Cubital tunnel syndrome on right (Acute) Medial epicondylitis, right elbow (Acute) Right lateral epicondylitis (Acute) Migraine headache without aura (Acute) Viral illness (Acute) CHAPARRO (nonalcoholic steatohepatitis) (Acute) Medial epicondylitis, left elbow (Acute) Carpal tunnel syndrome on both sides (Acute) Tubular adenoma of colon (Acute 11/26/16) Numbness of left hand (Acute 07/04/17) Migraine (Acute 02/12/14) Elevated lipids (Acute 02/12/14) Diabetes (Acute 02/12/14) diet controlled Anxiety and depression (Acute 02/12/14) Medical History Anxiety and depression Asthma Diabetes mellitus, type 2 Elevated lipids Migraine Obstructive sleep apnea syndrome Polycystic ovaries Surgical History anterior cruciate ligament reconstruction section twice Colonoscopy - MAC (11/26/16) Cubital tunnel syndrome on left (09/14/17) 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 (Date of Surgery: 03/02/18 and 10/02/2019) EGD - MAC (11/26/16) Endoscopic Carpal Tunnel release (01/14/09) 09/16/2010 REPEAT ECTR RIGHT Ligation of fallopian tube Open Carpal Tunnel release (10/23/12) RIGHT SIDE, left 8.14.14 Vaginal hysterectomy Social History (Reviewed 12/17/21 @ 14:39 by CLARISSE Beltre Smoking/Tobacco Use Status: Former Tobacco Use Quit Date: 08/01/05 Smoking risk assessment performed?: Yes Alcohol Intake: never Drug use: Never Substance use type: does not use Household members: spouse and children Housing: other Details: trailer Current gender identity: female What is your relationship status?: Panel score (0-1 are the most socially isolated patients): 1 Seatbelt use: always Do you feel safe at home: Yes Do you feel safe in your relationship?: Yes Exam Const General: cooperative, healthy appearing, comfortable, no acute distress, not diaphoretic and not ill appearing Nutritional Appearance: average body habitus Orientation: alert, awake and oriented x3 Limitations: mental status not altered Neck Neck: normal visual inspection, full ROM, trachea midline, supple and no anterior neck swelling Carotids: normal carotid upstroke and no bruits Chest Chest: normal inspection of the chest Resp Effort & Inspection: normal respiratory effort and able to speak in complete sentences Auscultation: clear to auscultation bilaterally Cardio Jugular venous pressure: no JVD Palpation: normal PMI Rate: regular rate Rhythm: regular rhythm Heart Sounds: S1 normal, S2 normal, no click, no gallops, no murmurs and no rubs Bruits: no abdominal aortic bruits and no carotid bruits Pulses: radial pulses present bilaterally 2+ GI Inspection: normal to inspection Palpation: soft, no aortic enlargement, no pulsatile masses and tender in the epigastrum and in the RUQ; Peñaloza's sign negative Auscultation: normal bowel sounds Skin General skin exam: no rashes or lesions noted Neuro General: patient alert, patient awake, patient oriented x3, tone normal and moves all extremities Course Vital Signs Vital signs: Vital Signs Temperature 36.1 C L 12/17/21 11:11 Pulse 59 L 12/17/21 11:11 Respiratory Rate 16 12/17/21 11:11 Blood Pressure 117/42 L 12/17/21 11:11 Pulse Oximetry 99 12/17/21 11:11 Temperature 36.1 C L 12/17/21 11:11 Temperature Source Temporal Artery Scan 12/17/21 11:11 Pulse 49 L 12/17/21 13:31 Pulse 50 L 12/17/21 13:40 Respiratory Rate 15 12/17/21 13:40 Respiratory Effort 12/17/21 12:59 Respiratory Depth Normal 12/17/21 12:59 Respiratory Pattern Normal 12/17/21 12:59 Blood Pressure 106/50 L 12/17/21 13:31 Blood Pressure Mean 64 12/17/21 13:31 Blood Pressure Position Sitting 12/17/21 11:11 Pulse Oximetry 100 12/17/21 13:40 Oxygen Delivery Method Room Air 12/17/21 11:11 Oxygen Flow Rate 0 12/17/21 11:11 Pain Level 7 12/17/21 13:06 Lab/Test Results Lab/Test Results: Laboratory Tests Range/Units 12/17/21 12/17/21 12:00 12:00 WBC (4.4-10.8) 10^3/uL 8.26 RBC (3.93-5.22) 10^6/uL 4.71 Hgb (11.2-15.7) g/dL 14.0 Hct (36.0-46.0) % 41.6 MCV (80-95) fL 88 MCH (27.0-33.0) pg 29.7 MCHC (32.0-36.0) % 33.7 RDW (11.7-14.6) % 11.9 Plt Count (130-400) 10^3/uL 258 MPV (8.0-11.0) fL 10.7 Immature Gran % 0.4 Neutrophils % 60.1 Lymphocytes % 32.6 Monocytes % 5.9 Eosinophils % 0.5 Basophils % 0.5 Nucleated RBC % (0.0-0.3) % 0.0 Absolute Neutrophils (1.2-6.7) 10^3/uL 4.97 Absolute Lymphocytes (1.2-3.4) 10^3/uL 2.69 Absolute Monocytes (0.1-0.8) 10^3/uL 0.49 Absolute Eosinophils (0.0-0.7) 10^3/uL 0.04 Absolute Basophils (0.0-0.2) 10^3/uL 0.04 Sodium (136-145) mmol/L 138 Potassium (3.5-5.1) mmol/L 4.0 Chloride (98-107) mmol/L 104 Carbon Dioxide (21.0-32.0) mmol/L 29.6 Anion Gap (3-11) mmol/L 4.4 BUN (7-18) mg/dL 10 Creatinine (0.55-1.02) mg/dL 0.7 Estimated GFR/1.73 m2 (mL/min/1.73m2) >= 60.00 Glucose (74-106) mg/dL 86 Calcium (8.5-10.1) mg/dL 9.0 Magnesium (1.8-2.4) mg/dL 2.2 Total Bilirubin (0.2-1.0) mg/dL 0.3 AST (15-37) U/L 12 L ALT (14-59) U/L 23 Alkaline Phosphatase (46-116) U/L 89 Troponin I (<or=60) ng/L < 50 Total Protein (6.4-8.2) g/dL 7.8 Albumin (3.4-5.0) g/dL 3.7 Lipase (73-393) U/L 48
--- NOTE | 2021-12-17 14:45 | NUR.NOTE ---
Nursing Note: pain is now 6 - iv tylenol started - at bedside
[2021-12-17 15:35] LABS: Troponin I < 50 ng/L (<or=60)
== END 2021-12-17 16:08 | disposition home or self-care (01) ==
PROVIDERS: Emergency Provider Nurse Practitioner Family; PCP Nurse Practitioner Family
DX: K20.90 Esophagitis, unspecified without bleeding (principal); R11.10 Vomiting, unspecified; R07.9 Chest pain, unspecified; R10.13 Epigastric pain
CPT/HCPCS: 80053; 83690; 93005; 96361; 96365; 96375; 99285; 71046; 76705; 83735; 84484; 85025; 93010; 99284; J0131; J2405

== ENCOUNTER 2021-12-31 08:46 | Emergency (ER) | payer MEDICAID, SELFPAY ==
[2021-12-31 08:49] VITALS: BP 117/52; PULSE 53; RESP 16; TEMP 36.6; O2SAT 98
[2021-12-31 09:01] VITALS: RESP 16
--- NOTE | 2021-12-31 09:04 | W.ED.GENAD ---
Discharge Plan Disposition Patient Disposition: HOME Condition: Improving Discharge Details Clinical Impression: Acute dehydration Primary Care Provider: Deyanira Marcus ED Provider: Oumar Wong Home Meds and New Rx's Prescriptions: Continued docusate sodium 100 mg capsule 100 mg PO DAILY PRN sumatriptan succinate 50 mg tablet See Rx Instructions PO .COMPLEX PRN Rx Instructions: take 1 tab at onset of headache; if no relief may repeat 1 tab after at least 2 hrs; max = 4 tabs/24 hr PO albuterol sulfate [ProAir HFA] 90 mcg/actuation HFA aerosol inhaler 2 inh inhalation Q6H PRN Flovent HFA 110 mcg/actuation HFA aerosol inhaler 1 inh inhalation BID lisinopril 5 mg tablet 5 mg PO DAILY ursodiol 200 mg capsule 250 mg PO DAILY magnesium L-lactate [Magtab] 84 mg tablet extended release 84 mg PO DAILY febuxostat [Uloric] 40 mg tablet 40 mg PO BID atorvastatin 40 mg tablet 40 mg PO QHS biotin 1 mg capsule 1 mg PO BID divalproex 250 mg tablet,delayed release (DR/EC) 250 mg PO BID vjtuzwrdmdyo-Sr-xdod-minerals 18-0.4 mg tablet 1 tab PO DAILY pantoprazole 40 mg Tablet,Delayed Release (Dr/Ec) 40 mg PO DAILY loratadine 10 mg capsule 10 mg PO DAILY PRN sucralfate [Carafate] 100 mg/mL suspension 10 ml PO BID Qty: 200 1RF acetaminophen 500 mg tablet 500 mg PO Q6H PRN (Reason: pain) Qty: 60 0RF ondansetron HCl 4 mg tablet 4 mg PO Q8H PRN (Reason: nausea and vomiting) Qty: 7 0RF Discharge Instructions Instructions: Dehydration (ED) Additional Instructions: Home to rest today. Small, frequent sips of fluids to maintain good hydration I have included your laboratories results from today. Please follow-up with [facility] as planned. Return to the emergency department for any acute concerns. WBC 7.38 RBC 4.39 Hgb 13.0 Hct 38.0 MCV 87 MCH 29.6 MCHC 34.2 RDW 11.8 Plt Count 250 Sodium 142 Potassium 3.5 Chloride 104 Carbon [id number] Anion Gap 8.4 BUN 10 Creatinine 0.7 Estimated GFR/1.73 m2 >= 60.00 Glucose 85 Calcium 9.1 Total Bilirubin 0.4 AST 12 L ALT 22 Alkaline [id number] Total Protein 7.4 Albumin 3.7 Lipase 38 Medical Decision Making 41-year-old female who is status post gastric bypass last year with resultant 80 pound weight loss. She states her surgery she has had intermittent bouts of nausea with small emesis. Sometimes provoked by food. Feels she has had increased frequency over the past few days and feels dehydrated. Reports decreased urine output yesterday. She has been intermittently tolerant of with some solids. She has not had a fever. Arrives to ER with normal vital signs, no abdominal tenderness on exam otherwise reveals dry mucous membranes. She is at risk for dehydration, electrolyte abnormality. Patient had IV access established and screening laboratories obtained. Given 1 L normal saline. Patient's labs are reassuring, she felt improved following fluids. Given that she had failed to meet her daily fluid requirements, she certainly may have a case of mild dehydration, now improved. Lab Data Lab results reviewed: Yes I reviewed the patient's lab results. Labs: Laboratory Results - last 24 hr 12/31/21 12/31/21 09:14 09:14 WBC 7.38 RBC 4.39 Hgb 13.0 Hct 38.0 MCV 87 MCH 29.6 MCHC 34.2 RDW 11.8 Plt Count 250 MPV 11.0 Sodium 142 Potassium 3.5 Chloride 104 Carbon Dioxide 29.6 Anion Gap 8.4 BUN 10 Creatinine 0.7 Estimated GFR/1.73 m2 >= 60.00 Glucose 85 Calcium 9.1 Total Bilirubin 0.4 AST 12 L ALT 22 Alkaline Phosphatase 86 Total Protein 7.4 Albumin 3.7 Lipase 38 HPI General Mode of arrival: ambulatory. Date/Time Provider Initiated Documentation: 12/31/21 08:49. Limitations to Documentation: no limitations. Information obtained by: patient. History of Present Illness 41 year old F presents to the emergency department with the chief complaint of Intermittent nausea for weeks, feels dehydrated, described as moderate, and is localized to the abdomen. Patient reports no radiation. Patient started experiencing this week(s) and it has been intermittent. No relieving factors improve symptom(s), Eating worsens symptoms . Patient notes denies fever/chills. Patient did receive the following treatments prior to arrival, none Related Data Home Medications Medication Instructions Recorded Confirmed pantoprazole 40 mg tablet,delayed 40 mg PO DAILY 05/11/19 12/31/21 release docusate sodium 100 mg capsule 100 mg PO DAILY PRN 08/30/19 12/31/21 sumatriptan succinate 50 mg tablet See Rx Instructions PO .COMPLEX PRN 11/27/19 12/31/21 acetaminophen 500 mg tablet 500 mg PO Q6H PRN pain #60 tabs 05/28/20 12/31/21 loratadine 10 mg capsule 10 mg PO DAILY PRN 01/21/21 12/31/21 albuterol sulfate 90 mcg/actuation 2 inh inhalation Q6H PRN 03/23/21 12/31/21 aerosol inhaler (ProAir HFA) fluticasone propionate 110 1 inh inhalation BID 03/23/21 12/31/21 mcg/actuation HFA aerosol inhaler (Flovent HFA) ondansetron HCl 4 mg tablet 4 mg PO Q8H PRN nausea and 08/21/21 12/31/21 vomiting #7 tabs atorvastatin 40 mg tablet 40 mg PO QHS 10/22/21 12/31/21 biotin 1 mg capsule 1 mg PO BID 10/22/21 12/31/21 divalproex 250 mg tablet,delayed 250 mg PO BID 10/22/21 12/31/21 release febuxostat 40 mg tablet (Uloric) 40 mg PO BID 10/22/21 12/31/21 lisinopril 5 mg tablet 5 mg PO DAILY 10/22/21 12/31/21 magnesium L-lactate 84 mg 84 mg PO DAILY 10/22/21 12/31/21 tablet,extended release (Magtab) tkykmfznudhq-Rf-rwiz-minerals 18 1 tab PO DAILY 10/22/21 12/31/21 mg-0.4 mg tablet ursodiol 200 mg capsule 250 mg PO DAILY 10/22/21 12/31/21 sucralfate 100 mg/mL oral 10 ml PO BID #200 mL 12/17/21 12/31/21 suspension (Carafate) Previous Rx's Medication Instructions Recorded acetaminophen 500 mg tablet 500 mg PO Q6H PRN pain #60 tabs 05/28/20 ondansetron HCl 4 mg tablet 4 mg PO Q8H PRN nausea and 08/21/21 vomiting #7 tabs sucralfate 100 mg/mL oral 10 ml PO BID #200 mL 12/17/21 suspension (Carafate) Allergies Allergy/AdvReac Type Severity Reaction Status Date / Time amoxicillin Allergy Severe Other (See Verified 12/31/21 08:54 Comment) artichoke Allergy Severe ANAPHYLAXIS Verified 12/31/21 08:54 Penicillins Allergy Intermediate HIVES Verified 12/31/21 08:54 sodium hypochlorite solution Allergy Intermediate HIVES/SOB Verified 12/31/21 08:54 [sodium hypochlorite] adhesive tape Allergy Unverified 12/31/21 08:54 General Stated Complaint: GenMedical MIKE: 4 Review of Systems Narrative: Intermittent episodes of vomiting since having gastric bypass. She has lost 80 pounds she is not had a fever, no abdominal pain. 8 systems were reviewed and otherwise negative PFSH All Active Problems (Updated 12/31/21 @ 10:38 by Oumar Wong MD) Acute dehydration (Acute) Esophagitis (Acute) Left ankle sprain (Acute) Chest pain (Acute) Gastric bypass status for obesity (Acute) Bipolar 1 disorder (Acute) Seizure disorder (Chronic) Fall (Acute) H/O gastric bypass (Acute) Hypokalemia (Acute) Sinus bradycardia (Acute) Hematemesis (Acute) Right wrist sprain (Acute) Contusion of right forearm (Acute) Sprain of right elbow (Acute) Bradycardia (Acute) Vomiting (Acute) Cubital tunnel syndrome on right (Acute) Medial epicondylitis, right elbow (Acute) Right lateral epicondylitis (Acute) Migraine headache without aura (Acute) Viral illness (Acute) CHAPARRO (nonalcoholic steatohepatitis) (Acute) Medial epicondylitis, left elbow (Acute) Carpal tunnel syndrome on both sides (Acute) Tubular adenoma of colon (Acute 11/26/16) Numbness of left hand (Acute 07/04/17) Migraine (Acute 02/12/14) Elevated lipids (Acute 02/12/14) Diabetes (Acute 02/12/14) diet controlled Anxiety and depression (Acute 02/12/14) Medical History Anxiety and depression Asthma Diabetes mellitus, type 2 Elevated lipids Migraine Obstructive sleep apnea syndrome Polycystic ovaries Surgical History anterior cruciate ligament reconstruction section twice Colonoscopy - MAC (04/28/17) Cubital tunnel syndrome on left (09/14/17) 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 (Date of Surgery: 03/02/18 and 10/02/2019) EGD - MAC (11/26/16) Endoscopic Carpal Tunnel release (01/14/09) 09/16/2010 REPEAT ECTR RIGHT Ligation of fallopian tube Open Carpal Tunnel release (10/23/12) RIGHT SIDE, left 8.14.14 Vaginal hysterectomy Social History Smoking/Tobacco Use Status: Former Tobacco Use Quit Date: 08/01/05 Smoking risk assessment performed?: Yes Alcohol Intake: never Drug use: Never Substance use type: does not use Household members: spouse and children Housing: other Details: trailer Current gender identity: female What is your relationship status?: Panel score (0-1 are the most socially isolated patients): 1 Seatbelt use: always Do you feel safe at home: Yes Do you feel safe in your relationship?: Yes Exam Narrative Exam Narrative: GEN: awake, alert, oriented 3. Pleasant, well groomed, interactive. HEAD: Normocephalic, atraumatic ENT: Mucous membranes dry, External ear exam unremarkable EYES: PERRL, EOMI NECK: Full ROM, no CARLI, no menigismus CHEST/RESP: Nontender, clear to auscultation bilateral, no wheeze/rhonchi/rales CARDIOVASCULAR: RRR, no murmur, rub melissa. 2+ Rad pulse bilateral ABDOMEN: Soft, nontender, no mass. +Bowel sounds EXT: Full ROM, no edema, no rash Neuro: Grossly normal neurologic exam, conversant, interactive. Psych: Speech fluent, thoughts congruent, affect normal Course Vital Signs Vital signs: Vital Signs Temperature 36.6 C 12/31/21 08:49 Pulse 53 L 12/31/21 08:49 Respiratory Rate 16 12/31/21 08:49 Blood Pressure 117/52 L 12/31/21 08:49 Pulse Oximetry 98 12/31/21 08:49 Temperature 36.6 C 12/31/21 08:49 Temperature Source Temporal Artery Scan 12/31/21 08:49 Pulse 53 L 12/31/21 08:49 Respiratory Rate 16 12/31/21 09:01 Respiratory Effort 12/31/21 09:01 Respiratory Depth Normal 06/02/22 09:01 Respiratory Pattern Normal 12/31/21 09:01 Blood Pressure 117/52 L 12/31/21 08:49 Blood Pressure Position Sitting 12/31/21 08:49 Pulse Oximetry 98 12/31/21 08:49 Oxygen Delivery Method Room Air 12/31/21 08:49 Oxygen Flow Rate 0 12/31/21 08:49 Pain Level 0 12/31/21 08:49
[2021-12-31] MEDS: Normal Saline 1,000 ML 1000 ML IV (09:15)
[2021-12-31 09:22] LABS: MCH 29.6 pg (27.0-33.0); MCHC 34.2 % (32.0-36.0); MCV 87 fL (80-95); Platelet Count 250 10^3/uL (130-400); RBC 4.39 10^6/uL (3.93-5.22); RDW 11.8 % (11.7-14.6); RDW-SD 37.2 fL; WBC 7.38 10^3/uL (4.4-10.8)
[2021-12-31 09:42] LABS: ALT 22 U/L (14-59); AST 12 U/L (15-37); Albumin 3.7 g/dL (3.4-5.0); Alkaline Phosphatase 86 U/L (46-116); Anion Gap 8.4 mmol/L (3-11); BUN 10 mg/dL (7-18); Bilirubin, Total 0.4 mg/dL (0.2-1.0); CO2 29.6 mmol/L (21.0-32.0); CREATININE 0.7 mg/dL (0.55-1.02); Calcium 9.1 mg/dL (8.5-10.1); Chloride 104 mmol/L (98-107); Glucose 85 mg/dL (74-106); Lipase 38 U/L (73-393); Potassium 3.5 mmol/L (3.5-5.1); Sodium 142 mmol/L (136-145); Total Protein 7.4 g/dL (6.4-8.2)
[2021-12-31 10:52] LABS: Bilirubin Negative (Negative); Blood Negative (Negative); Clarity Clear (Clear); Glucose Negative (Negative); Ketones Negative (Negative); Leukocyte Esterase Negative (Negative); Nitrite Negative (Negative); Specific Gravity 1.025 (1.005-1.025); Urobilinogen 0.2 EU/dL (Up TO 0.2)
== END 2021-12-31 10:52 | disposition home or self-care (01) ==
PROVIDERS: Emergency Provider Emergency Medicine; PCP Nurse Practitioner Family
DX: E86.0 Dehydration (principal); Z98.84 Bariatric surgery status
CPT/HCPCS: 36415; 80053; 81025; 83690; 85027; 96360; 99284; 81003; 99283

== ENCOUNTER 2022-01-27 16:50 | Emergency (ER) | payer MEDICAID, SELFPAY ==
[2022-01-27 16:52] VITALS: BP 152/56; PULSE 51; RESP 15; TEMP 36.7; O2SAT 99
--- NOTE | 2022-01-27 17:25 | ED.GENADUL_ITS ---
Discharge Plan Disposition Patient Disposition: HOME Condition: Stable Discharge Details Clinical Impression: Kidney stone on left side Primary Care Provider: Deyanira Marcus ED Provider: Ale Christensen Home Meds and New Rx's Prescriptions: Continued sumatriptan succinate 50 mg tablet See Rx Instructions PO .COMPLEX PRN Rx Instructions: take 1 tab at onset of headache; if no relief may repeat 1 tab after at least 2 hrs; max = 4 tabs/24 hr PO albuterol sulfate [ProAir HFA] 90 mcg/actuation HFA aerosol inhaler 2 inh inhalation Q6H PRN fluticasone propionate [Flovent HFA] 110 mcg/actuation HFA aerosol inhaler 1 inh inhalation BID atorvastatin 40 mg tablet 40 mg PO QHS divalproex 250 mg tablet,delayed release (DR/EC) 250 mg PO BID pantoprazole 40 mg Tablet,Delayed Release (Dr/Ec) 40 mg PO DAILY loratadine 10 mg capsule 10 mg PO DAILY PRN acetaminophen 500 mg tablet 500 mg PO Q6H PRN (Reason: pain) Qty: 60 0RF ondansetron HCl 4 mg tablet 4 mg PO Q8H PRN (Reason: nausea and vomiting) Qty: 7 0RF No Action docusate sodium 100 mg capsule 100 mg PO DAILY PRN lisinopril 5 mg tablet 5 mg PO DAILY ursodiol 200 mg capsule 250 mg PO DAILY magnesium L-lactate [Magtab] 84 mg tablet extended release 84 mg PO DAILY febuxostat [Uloric] 40 mg tablet 40 mg PO BID biotin 1 mg capsule 1 mg PO BID lsudefesckcp-Gt-pvnf-minerals 18-0.4 mg tablet 1 tab PO DAILY sucralfate [Carafate] 100 mg/mL suspension 10 ml PO BID Qty: 200 1RF Discharge Instructions Instructions: Kidney Stones (ED) Additional Instructions: Please strain all urine. Follow-up with urology if continued bleeding and flank pain. Return to the ER for any fever, vomiting, worsening. Follow up with primary care provider in 3-5 days. Return to ED sooner if any worsening or concerns. Increase oral fluids. Please take Tylenol with food every 4-6 hours as needed for pain and swelling. Referrals: Deyanira Marcus [Primary Care Provider] - Evelyne Bell DNP [NURSE PRACTITIONER] - 2 weeks Discharge Data Discharge Date/Time-TO BE ENTERED AT DEPARTURE: 01/27/22 21:41 Medical Decision Making 41-year-old female presents to the ER with chief complaint of vaginal bleeding which began approximately 1 PM this afternoon. Patient also reports some left lower quadrant abdominal cramping which radiates around to her left flank. She has not had a menstrual period approximately 16 years status post a partial hysterectomy. She denies any nausea. She reports that she does have chronic vomiting. Denies any dysuria denies any fever or chills. She has gone through approximately 3 pads in the last 4 hours. She states pain is 8 out of 10. Labs ordered including CBC, CMP, urinalysis urine hCG ordered, will do pelvic exam, CT abdomen pelvis without contrast ordered to rule out kidney stone. Differential diagnosis includes but not limited to abnormal vaginal bleeding, ectopic , kidney stone. Pelvic exam performed with Marcelle CLARKE as a witness, no visualized vaginal bleeding from cervical os or vaginal canal. No adnexal tenderness. No evidence of lesions or discharge. CBC shows leukocytosis hemoglobin hematocrit within normal limits, CMP largely within normal limits, urinalysis shows trace ketones large blood moderate bilirubin greater than 50 RBCs no WBCs. Culture is pending at this time. CT shows a 4 mm stone which is nonobstructing no hydronephrosis. I did speak with patient regarding results she verbalizes understanding. Patient was given a urine strainer by hourly sales staff prior to discharge. Referral placed for urology discussed home care strict return instructions, verbalized understanding. This text was generated using [employer] dictation system, please disregard any oddities of phrase or misspellings. Medical Records Medical records reviewed: Yes I reviewed the patient's medical records. Imaging Data Radiologic Study: Imaging: CT Scan Radiologist's impression: FINDINGS: ABDOMEN: Lung Bases: Normal where visualized. Liver: Normal density. No measurable mass. Gallbladder and biliary tract: No radiodense calculus or biliary ductal dilation. Pancreas: Normal density, no abnormal calcifications or inflammatory process. Spleen: Normal. Kidneys: Normal size, contour and axis.There is a 2 mm nonobstructing stone in the lower pole of the right kidney.? There is a 4 mm stone in the left UPJ without significant hydronephrosis.? There is a 2 mm nonobstructing stone in the midpole of the left kidney.? No masses seen. Adrenal glands: No mass is seen. Lymph nodes: Within normal limits.? Abdominal Aorta: Abdominal portion non-dilated. PELVIS:? Bladder:Symmetric distention, no gross wall thickening. Bowel: No obstruction or bowel wall thickening. No evidence of appendicitis.? Postsurgical changes in the stomach and small bowel. Peritoneal cavity: No ascites, collection or mesenteric inflammatory response.? No free air.? Reproductive organs: Status post hysterectomy.? Bones: Within normal limits. Postsurgical changes at the lumbosacral junction. Soft Tissues: Within normal limits. IMPRESSION: 1. 4 mm stone at the left UPJ without significant hydronephrosis. 2. Bilateral nephrolithiasis.? Lab Data Lab results reviewed: Yes I reviewed the patient's lab results. Labs: 01/27/22 17:25 Urine - Reflex from Ua Urine Culture - Preliminary Gram Negative [place] Gram Negative [place]#2 Gram Positive Benita,Mixed Laboratory Tests Range/Units 01/27/22 01/27/22 01/27/22 17:25 17:35 17:35 WBC (4.4-10.8) 10^3/uL 10.30 RBC (3.93-5.22) 10^6/uL 4.67 Hgb (11.2-15.7) g/dL 13.8 Hct (36.0-46.0) % 39.4 MCV (80-95) fL 84 MCH (27.0-33.0) pg 29.6 MCHC (32.0-36.0) % 35.0 RDW (11.7-14.6) % 11.4 L Plt Count (130-400) 10^3/uL 240 MPV (8.0-11.0) fL 10.9 Immature Gran % 0.2 Neutrophils % 59.5 Lymphocytes % 33.9 Monocytes % 5.4 Eosinophils % 0.5 Basophils % 0.5 Nucleated RBC % (0.0-0.3) % 0.0 Absolute Neutrophils (1.2-6.7) 10^3/uL 6.13 Absolute Lymphocytes (1.2-3.4) 10^3/uL 3.49 H Absolute Monocytes (0.1-0.8) 10^3/uL 0.56 Absolute Eosinophils (0.0-0.7) 10^3/uL 0.05 Absolute Basophils (0.0-0.2) 10^3/uL 0.05 Sodium (136-145) mmol/L 139 Potassium (3.5-5.1) mmol/L 3.5 Chloride (98-107) mmol/L 102 Carbon Dioxide (21.0-32.0) mmol/L 28.3 Anion Gap (3-11) mmol/L 8.7 BUN (7-18) mg/dL 15 Creatinine (0.55-1.02) mg/dL 0.7 Estimated GFR/1.73 m2 (mL/min/1.73m2) >= 60.00 Glucose (74-106) mg/dL 81 Calcium (8.5-10.1) mg/dL 9.5 Total Bilirubin (0.2-1.0) mg/dL 0.5 AST (15-37) U/L 20 ALT (14-59) U/L 34 Alkaline Phosphatase (46-116) U/L 75 Total Protein (6.4-8.2) g/dL 8.0 Albumin (3.4-5.0) g/dL 4.1 Urine Color (Yellow) Brown Urine Clarity (Clear) Cloudy Urine pH (5-8) 6.0 Ur Specific [place] (1.005-1.025) >= 1.030 H Urine Protein (Negative) mg/dL 100 H Urine Ketones (Negative) mg/dL Trace H Urine Blood (Negative) Large H Urine Nitrite (Negative) Negative Urine Bilirubin (Negative) Moderate H Urine Urobilinogen (Up TO 0.2) EU/dL 1.0 H Ur Leukocyte Esterase (Negative) Negative Urine RBC (0-2) HPF >50 H Urine WBC Not Applicable Ur Epithelial Cells Not Applicable Urine Crystals Not Applicable Urine Bacteria Not Applicable Urine Mucus Not Applicable Ur Culture Indicated? Yes Urine Glucose (Negative) mg/dL Negative HPI General Mode of arrival: ambulatory . Date/Time Provider Initiated Documentation: 01/27/22 17:15 . Limitations to Documentation: no limitations . Information obtained by: patient, RN notes reviewed and old records reviewed . HPI Narrative: 41-year-old female presents to the ER with chief complaint of vaginal bleeding which began approximately 1 PM this afternoon. Patient also reports some left lower quadrant abdominal cramping which radiates around to her left flank. She has not had a menstrual period approximately 16 years status post a partial hysterectomy. She denies any nausea. She reports that she does have chronic vomiting. Denies any dysuria denies any fever or chills. She has gone through approximately 3 pads in the last 4 hours. She states pain is 8 out of 10. Past medical history includes type 2 diabetes, asthma, anxiety depression, obstructive sleep apnea, bipolar 1 disorder seizure disorder, polycystic ovary. Surgical history includes partial hysterectomy she does have her ovaries, gastric bypass. Related Data Home Medications Medication Instructions Recorded Confirmed pantoprazole 40 mg tablet,delayed 40 mg PO DAILY 05/11/19 01/27/22 release docusate sodium 100 mg capsule 100 mg PO DAILY PRN 08/30/19 01/27/22 sumatriptan succinate 50 mg tablet See Rx Instructions PO .COMPLEX PRN 11/27/19 01/27/22 acetaminophen 500 mg tablet 500 mg PO Q6H PRN pain #60 tabs 05/28/20 01/27/22 loratadine 10 mg capsule 10 mg PO DAILY PRN 01/21/21 01/27/22 albuterol sulfate 90 mcg/actuation 2 inh inhalation Q6H PRN 03/23/21 01/27/22 aerosol inhaler (ProAir HFA) fluticasone propionate 110 1 inh inhalation BID 03/23/21 01/27/22 mcg/actuation HFA aerosol inhaler (Flovent HFA) ondansetron HCl 4 mg tablet 4 mg PO Q8H PRN nausea and 08/21/21 01/27/22 vomiting #7 tabs atorvastatin 40 mg tablet 40 mg PO QHS 10/22/21 01/27/22 biotin 1 mg capsule 1 mg PO BID 10/22/21 01/27/22 divalproex 250 mg tablet,delayed 250 mg PO BID 10/22/21 01/27/22 release febuxostat 40 mg tablet (Uloric) 40 mg PO BID 10/22/21 01/27/22 lisinopril 5 mg tablet 5 mg PO DAILY 10/22/21 01/27/22 magnesium L-lactate 84 mg 84 mg PO DAILY 10/22/21 01/27/22 tablet,extended release (Magtab) [id number]-Gc-enpq-minerals 18 1 tab PO DAILY 10/22/21 01/27/22 mg-0.4 mg tablet ursodiol 200 mg capsule 250 mg PO DAILY 03/24/22 06/29/22 sucralfate 100 mg/mL oral 10 ml PO BID #200 mL 12/17/21 01/27/22 suspension (Carafate) Previous Rx's Medication Instructions Recorded acetaminophen 500 mg tablet 500 mg PO Q6H PRN pain #60 tabs 05/28/20 ondansetron HCl 4 mg tablet 4 mg PO Q8H PRN nausea and 08/21/21 vomiting #7 tabs sucralfate 100 mg/mL oral 10 ml PO BID #200 mL 12/17/21 suspension (Carafate) Allergies Allergy/AdvReac Type Severity Reaction Status Date / Time amoxicillin Allergy Severe Other (See Verified 12/31/21 08:54 Comment) artichoke Allergy Severe ANAPHYLAXIS Verified 12/31/21 08:54 Penicillins Allergy Intermediate HIVES Verified 12/31/21 08:54 sodium hypochlorite solution Allergy Intermediate HIVES/SOB Verified 12/31/21 08:54 [sodium hypochlorite] adhesive tape Allergy Unverified 12/31/21 08:54 General 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 Review of Systems All systems reviewed & are unremarkable except as noted in HPI and below Gastrointestinal Gastrointestinal: Reports abdominal pain and Reports vomiting Genitourinary Genitourinary: Reports as per HPI, Reports abnormal vaginal bleeding and Reports flank pain PFSH All Active Problems (Updated 01/27/22 @ 20:39 by Ale Christensen NP) Acute dehydration (Acute) Kidney stone on left side (Acute) Left ankle sprain (Acute) Chest pain (Acute) Gastric bypass status for obesity (Acute) Bipolar 1 disorder (Acute) Seizure disorder (Chronic) Fall (Acute) H/O gastric bypass (Acute) Hypokalemia (Acute) Sinus bradycardia (Acute) Hematemesis (Acute) Right wrist sprain (Acute) Contusion of right forearm (Acute) Sprain of right elbow (Acute) Bradycardia (Acute) Vomiting (Acute) Cubital tunnel syndrome on right (Acute) Medial epicondylitis, right elbow (Acute) Right lateral epicondylitis (Acute) Migraine headache without aura (Acute) Viral illness (Acute) CHAPARRO (nonalcoholic steatohepatitis) (Acute) Medial epicondylitis, left elbow (Acute) Carpal tunnel syndrome on both sides (Acute) Tubular adenoma of colon (Acute 11/26/16) Numbness of left hand (Acute 07/04/17) Migraine (Acute 02/12/14) Elevated lipids (Acute 02/12/14) Diabetes (Acute 02/12/14) diet controlled Anxiety and depression (Acute 02/12/14) Medical History Anxiety and depression Asthma Diabetes mellitus, type 2 Elevated lipids Migraine Obstructive sleep apnea syndrome Polycystic ovaries Surgical History anterior cruciate ligament reconstruction section twice Colonoscopy - MAC (11/26/16) Cubital tunnel syndrome on left (09/14/17) 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 (Date of Surgery: 03/02/18 and 10/02/2019) EGD - MAC (11/26/16) Endoscopic Carpal Tunnel release (01/14/09) 09/16/2010 REPEAT ECTR RIGHT Ligation of fallopian tube Open Carpal Tunnel release (10/23/12) RIGHT SIDE, left 8.14.14 Vaginal hysterectomy Social History Smoking/Tobacco Use Status: Former Tobacco Use Quit Date: 08/01/05 Smoking risk assessment performed?: Yes Alcohol Intake: never Drug use: Never Substance use type: does not use Household members: spouse and children Housing: other Details: trailer Current gender identity: female What is your relationship status?: Panel score (0-1 are the most socially isolated patients): 1 Seatbelt use: always Do you feel safe at home: Yes Do you feel safe in your relationship?: Yes Exam Narrative Exam Narrative: Constitutional: Alert and oriented x3. Appears stated age. Normal body habitus. Head: Normocephalic, no trauma. Eyes: Pupils PERRL, Red reflex noted, EOM's intact. Eyelids symmetrical without lesions, discharge, or swelling. ENT: Bilateral TM's WNL, External ear normal to inspection, no mastoid TTP, swelling, or erythema, Nasal turbinates WNL, no nasal discharge. Normal dentition, Posterior pharynx WNL, no exudate. Chest: RRR, Normal S1, S2, distal pulses intact. Resp: Lungs clear to auscultation bilaterally, no wheezes, rales, or rhonchi. Abdomen: Soft, tender left lower quadrant left upper quadrant left CVA tenderness with palpation. Musculoskeletal: Normal gait, 5/5 strength to all four extremities. Skin: No suspicious rashes or lesions. Capillary refill less than 2 sec. Neurologic: Cranial nerves II-XII intact. Alert and oriented x 3. Motor: No deficits noted. Sensory: Intact bilaterally all 4 extremities. Reflexes: DTR's intact bilaterally.. Hematologic/Lymphatic: No ecchymosis, no lymphadenopathy. Course Vital Signs Vital signs: Vital Signs Temperature 36.7 C 01/27/22 16:52 Pulse 51 L 01/27/22 16:52 Respiratory Rate 15 01/27/22 16:52 Blood Pressure 152/56 H 01/27/22 16:52 Pulse Oximetry 99 01/27/22 16:52 Temperature 36.7 C 01/27/22 16:52 Pulse 51 L 01/27/22 16:52 Respiratory Rate 15 01/27/22 16:52 Respiratory Effort 01/27/22 16:58 Blood Pressure 152/56 H 01/27/22 16:52 Pulse Oximetry 99 01/27/22 16:52 Pain Level 8 01/27/22 17:17
[2022-01-27 17:40] LABS: Abs Immature Grans 0.02 10^3/uL (0.0-0.06); Absolute Basophil Count 0.05 10^3/uL (0.0-0.2); Absolute Eosinophil Count 0.05 10^3/uL (0.0-0.7); Absolute Lymphocyte Count 3.49 10^3/uL (1.2-3.4); Absolute Monocyte Count 0.56 10^3/uL (0.1-0.8); Absolute Neutrophil Count 6.13 10^3/uL (1.2-6.7); Basophils % 0.5; Eosinophils % 0.5; HCT 39.4 % (36.0-46.0); HGB 13.8 g/dL (11.2-15.7); Immature Grans % 0.2; Lymphocytes % 33.9; MCH 29.6 pg (27.0-33.0); MCV 84 fL (80-95); MPV 10.9 fL (8.0-11.0); Monocytes % 5.4; Neutrophils % 59.5; Platelet Count 240 10^3/uL (130-400); RBC 4.67 10^6/uL (3.93-5.22); RDW 11.4 % (11.7-14.6); RDW-SD 34.9 fL
[2022-01-27 17:45] LABS: Bilirubin Moderate (Negative); Blood Large (Negative); Clarity Cloudy (Clear); Glucose Negative (Negative); Ketones Trace mg/dL (Negative); Leukocyte Esterase Negative (Negative); Nitrite Negative (Negative); Specific Gravity >= 1.030 (1.005-1.025)
[2022-01-27 17:51] LABS: RBC >50 HPF (0-2)
[2022-01-27 17:52] LABS: C & S Indicated? Yes
--- NOTE | 2022-01-27 18:00 | DI.CT_ITS ---
Exam(s) CT ABDOMEN PELVIS WO EXAM: CT ABDOMEN PELVIS WO CLINICAL HISTORY: Left Flank Pain, bleeding, R/O Kidney stone. TECHNIQUE: Imaging Protocol: Axial computed tomography images with coronal and sagittal reformatted images were created and reviewed. COMPARISON: CT CT CHEST PE ABD PELVIS W from 10/18/2021 FINDINGS: ABDOMEN: Lung Bases: Normal where visualized. Liver: Normal density. No measurable mass. Gallbladder and biliary tract: No radiodense calculus or biliary ductal dilation. Pancreas: Normal density, no abnormal calcifications or inflammatory process. Spleen: Normal. Kidneys: Normal size, contour and axis.There is a 2 mm nonobstructing stone in the lower pole of the right kidney. There is a 4 mm stone in the left UPJ without significant hydronephrosis. There is a 2 mm nonobstructing stone in the midpole of the left kidney. No masses seen. Adrenal glands: No mass is seen. Lymph nodes: Within normal limits. Abdominal Aorta: Abdominal portion non-dilated. PELVIS: Bladder:Symmetric distention, no gross wall thickening. Bowel: No obstruction or bowel wall thickening. No evidence of appendicitis. Postsurgical changes in the stomach and small bowel. Peritoneal cavity: No ascites, collection or mesenteric inflammatory response. No free air. Reproductive organs: Status post hysterectomy. Bones: Within normal limits. Postsurgical changes at the lumbosacral junction. Soft Tissues: Within normal limits. IMPRESSION: 1. 4 mm stone at the left UPJ without significant hydronephrosis. 2. Bilateral nephrolithiasis. RADIATION DOSE DELIVERED: 865.55mGy.cm Total DLP DATA REPOSITORY: All CT scans at this facility are submitted to the National Radiology Data Registry (NRDR) Dose Index Registry (DIR) with the [employer] [place] (ACR). RADIATION OPTIMIZATION: All CT scans at this facility use at least one of these dose optimization te chniques: automated exposure control; mA and/or kV adjustment per patient size (includes targeted exa ms where dose is matched to clinical indication); or iterative reconstruction.
[2022-01-27 18:03] LABS: ALT 34 U/L (14-59); AST 20 U/L (15-37); Albumin 4.1 g/dL (3.4-5.0); Alkaline Phosphatase 75 U/L (46-116); Anion Gap 8.7 mmol/L (3-11); BUN 15 mg/dL (7-18); Bilirubin, Total 0.5 mg/dL (0.2-1.0); CO2 28.3 mmol/L (21.0-32.0); CREATININE 0.7 mg/dL (0.55-1.02); Calcium 9.5 mg/dL (8.5-10.1); Chloride 102 mmol/L (98-107); Glucose 81 mg/dL (74-106); Potassium 3.5 mmol/L (3.5-5.1); Sodium 139 mmol/L (136-145)
--- NOTE | 2022-01-27 18:42 | DI.VRAD_ITS ---
PROCEDURE INFORMATION: Exam: CT Abdomen And Pelvis Without Contrast Exam date and time: 01/27/2022 18:20 Age: 41 years old Clinical indication: Other: Left flank pain, bleeding, R/O kidney stone TECHNIQUE: Imaging protocol: Computed tomography of the abdomen and pelvis without contrast. COMPARISON: CT ABDOMEN PELVIS W 08/21/2021 17:54 FINDINGS: Liver: No mass. Gallbladder and bile ducts: Distended gallbladder with no calcified stones. No significant biliary dilation or radiopaque stones in the biliary tree. Pancreas: No gross pathology in the pancreas on noncontrast imaging. Spleen: The spleen appears somewhat heterogeneous which is difficult to assess on noncontrast imaging. This would be better worked on postcontrast images. The spleen previously was heterogeneous on postcontrast imaging. Infectious, inflammatory and neoplastic processes can have this appearance. Adrenal glands: No mass. Kidneys and ureters: 4 mm calculus in the left renal pelvis without significant hydronephrosis. Subcentimeter nonobstructive right nephrolithiasis. Subcentimeter left nephrolithiasis. Stomach and bowel: Postsurgical changes in stomach and small bowel with satisfactory noncontrast appearance. No colitis or diverticular disease. Appendix: No evidence of appendicitis. Intraperitoneal space: No free air. No significant fluid collection. Vasculature: No abdominal aortic aneurysm. Lymph nodes: No significantly enlarged lymph nodes. Urinary bladder: Unremarkable as visualized. Reproductive: Hysterectomy. Bones/joints: Lumbosacral fixation hardware appears intact. No acute fracture or subluxation. Soft tissues: No suspicious lesions. IMPRESSION: 1. 4 mm calculus in the left renal pelvis without significant hydronephrosis. 2. Bilateral nephrolithiasis. 3. Incidental findings as described. Dictated and Authenticated by: Juanita Harper MD. Ordering:SHANNAN Aguilera MD
[2022-01-27] MEDS: Acetaminophen 325 MG TAB 650 MG PO (18:59)
[2022-01-27 20:42] VITALS: BP 110/51; PULSE 50; RESP 16; O2SAT 100
== END 2022-01-27 21:41 | disposition home or self-care (01) ==
PROVIDERS: Emergency Provider Registered Nurse Emergency; PCP Nurse Practitioner Family
DX: N20.0 Calculus of kidney (principal); R10.9 Unspecified abdominal pain; R10.32 Left lower quadrant pain
CPT/HCPCS: 36415; 80053; 81025; 99284; 74176; 81003; 81015; 85025; 87086; 99283

== ENCOUNTER 2022-02-16 14:56 | Outpatient (REF) | payer MEDICAID, SELFPAY ==
[2022-02-16 13:24] LABS: Source Nasal/Nares
[2022-02-16 16:20] LABS: COVID-19 PCR Negative (Negative)
== END 2022-02-16 14:57 | disposition home or self-care (01) ==
LOC: LBN 14:56
PROVIDERS: PCP Nurse Practitioner Family; Visit Provider Urology
DX: Z20.822 Contact with and (suspected) exposure to COVID-19 (principal); Z01.818 Encounter for other preprocedural examination
CPT/HCPCS: 87635

== ENCOUNTER 2022-02-18 09:10 | Day surgery (SDC) | payer MEDICAID, SELFPAY ==
[2022-02-18] VITALS (7 sets, daily range): BP systolic 116–136; BP diastolic 50–70; PULSE 37–49; RESP 11–19; TEMP 36.2–36.4; O2SAT 93–99; BMI 27.3
[2022-02-18] MEDS: Lactated Ringers 1,000 ML 80 ML IV (09:53)
--- NOTE | 2022-02-18 10:15 | DI.RAD_ITS ---
Exam(s) XR RETROGRADE IN OR EXAM: XR RETROGRADE IN OR CLINICAL HISTORY: Left kidney stone. TECHNIQUE: 2D digital imaging was performed. COMPARISON: No exams were available for comparison FINDINGS: Fluoroscopy was provided during urologic procedure left-side. Images reveal a left ureteral stent in place. Total clipped of dose 4.5122mGy IMPRESSION: DATA REPOSITORY: RADIATION DOSE DELIVERED:
--- NOTE | 2022-02-18 10:15 | ANES.PREOP_ITS ---
General Info Date of Service Date Performed: 02/18/22 Height: 5 ft 6 in Weight: 76.8 kg Body Mass Index (BMI): 27.3 Surgical Procedure: Operation Date: 02/18/22 10:55 Proposed Procedure Side Surgeon p Cystoscopy/Possible Laser/Retrograde/Ureteroscopy/Possible Stent Placement Left Mika Sandy MD Meds Allergies and Home Medications Allergies Allergy/AdvReac Type Severity Reaction Status Date / Time amoxicillin Allergy Severe Other (See Verified 02/18/22 09:36 Comment) artichoke Allergy Severe ANAPHYLAXIS Verified 02/18/22 09:36 Penicillins Allergy Intermediate HIVES Verified 02/18/22 09:36 sodium hypochlorite solution Allergy Intermediate HIVES/SOB Verified 02/18/22 09:36 [sodium hypochlorite] adhesive tape Allergy Mild Skin Rash Unverified 02/18/22 09:36 Home Medication Medication Instructions Recorded pantoprazole 40 mg tablet,delayed 40 mg PO DAILY 05/11/19 release docusate sodium 100 mg capsule 100 mg PO DAILY PRN 08/30/19 sumatriptan succinate 50 mg tablet See Rx Instructions PO .COMPLEX PRN 11/27/19 acetaminophen 500 mg tablet 500 mg PO Q6H PRN pain #60 tabs 05/28/20 loratadine 10 mg capsule 10 mg PO DAILY PRN 01/21/21 albuterol sulfate 90 mcg/actuation 2 inh inhalation Q6H PRN 03/23/21 aerosol inhaler (ProAir HFA) fluticasone propionate 110 1 inh inhalation BID 03/23/21 mcg/actuation HFA aerosol inhaler (Flovent HFA) biotin 1 mg capsule 1 mg PO BID 10/22/21 divalproex 250 mg tablet,delayed 250 mg PO BID 10/22/21 release magnesium L-lactate 84 mg 84 mg PO DAILY 10/22/21 tablet,extended release (Magtab) htjnkvrecdhj-My-jzyu-minerals 18 1 tab PO DAILY 10/22/21 mg-0.4 mg tablet ursodiol 200 mg capsule 250 mg PO DAILY 10/22/21 sucralfate 100 mg/mL oral 10 ml PO BID #200 mL 12/17/21 suspension (Carafate) tramadol 50 mg tablet 50 mg PO Q6H PRN pain #20 tabs 02/09/22 Current Visit Medications: Current Medications Generic Name Dose Route Start Last Admin Trade Name [place] PRN Reason Stop Dose Admin Ringer's Solution 1,000 mls @ 80 mls/hr 02/18/22 06:00 02/18/22 09:53 IV 03/19/22 23:59 80 mls/hr INFUSION CORKY Administration Gentamicin Sulfate 160 mg/ 104 mls @ 208 mls/hr 02/18/22 06:00 Sodium Chloride IVPB 02/18/22 18:00 PREOP CORKY IV Miscellaneous Supplies 1 each 02/18/22 06:00 Iv Access IV 03/19/22 23:59 DIRECTED CORKY Sodium Chloride 0 ml 02/18/22 06:00 Normal Saline Flush 10 Ml Syr IV 03/19/22 23:59 PRN PRN Sodium Chloride 0 ml 02/18/22 06:00 Normal Saline 10 Ml Vial IJ 03/19/22 23:59 DIRECTED PRN Sterile Water 0 ml 02/18/22 06:00 Water,Injection,Sterile 10 Ml Vial IJ 03/19/22 23:59 DIRECTED PRN PFSH Active Problems Active Problems: Problem Status Onset Code Anxiety and depression 02/12/14 F41.9, F32.9 Diabetes 02/12/14 E11.9 Elevated lipids 02/12/14 E78.5 Migraine 02/12/14 G43.909 Numbness of left hand 07/04/17 R20.0 Tubular adenoma of colon 11/26/16 D12.6 Carpal tunnel syndrome on both sides G56.03 Medial epicondylitis, left elbow M77.02 CHAPARRO (nonalcoholic steatohepatitis) K75.81 Viral illness B34.9 Migraine headache without aura G43.009 Right lateral epicondylitis M77.11 Medial epicondylitis, right elbow M77.01 Cubital tunnel syndrome on right G56.21 Right wrist sprain S63.501A Contusion of right forearm S50.11XA Sprain of right elbow S53.401A Bradycardia R00.1 Vomiting R11.10 Hematemesis K92.0 Sinus bradycardia R00.1 Hypokalemia E87.6 H/O gastric bypass Z98.84 Fall W19.XXXA Seizure disorder G40.909 Bipolar 1 disorder F31.9 Gastric bypass status for obesity Z98.84 Chest pain R07.9 Left ankle sprain S93.402A Kidney stone on left side N20.0 Medical History Medical History (Updated 02/17/22 @ 12:17 by Niels Acuna) Anxiety and depression Asthma Diabetes mellitus, type 2 Elevated lipids Migraine Obstructive sleep apnea syndrome pt. states she does not have this anymore r/t to gastric bypass Polycystic ovaries Surgical History Surgical History anterior cruciate ligament reconstruction section twice Colonoscopy - MAC (11/26/16) Cubital tunnel syndrome on left (09/14/17) 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 (Date of Surgery: 03/02/18 and 10/02/2019) EGD - MAC (11/26/16) Endoscopic Carpal Tunnel release (01/14/09) 09/16/2010 REPEAT ECTR RIGHT Ligation of fallopian tube Open Carpal Tunnel release (10/23/12) RIGHT SIDE, left 8.14.14 Vaginal hysterectomy Tobacco Smoking/Tobacco Use Status: Former Tobacco Use Alcohol Alcohol Intake: never Substance Use Substance use: Never Substance use type: does not use Vital Signs and Lab Results Vital Signs Most Recent Vital Signs in EMR: Most Recent Vital Signs Temp Pulse Resp BP Pulse Ox 36.4 C L 49 L 19 116/50 L 98 02/18/22 09:26 02/18/22 09:26 02/18/22 09:26 02/18/22 09:26 02/18/22 09:26 Lab Results Blood Type / Crossmatch: No Data to Display Complete Blood Count: White Blood Count 10.30 10^3/uL (4.4-10.8) 01/27/22 17:35 Red Blood Count 4.67 10^6/uL (3.93-5.22) 01/27/22 17:35 Hemoglobin 13.8 g/dL (11.2-15.7) 01/27/22 17:35 Hematocrit 39.4 % (36.0-46.0) 01/27/22 17:35 Platelet Count 240 10^3/uL (130-400) 01/27/22 17:35 Complete Metabolic Panel: Sodium Level 139 mmol/L (136-145) 01/27/22 17:35 Potassium Level 3.5 mmol/L (3.5-5.1) 01/27/22 17:35 Chloride Level 102 mmol/L (98-107) 01/27/22 17:35 Carbon Dioxide Level 28.3 mmol/L (21.0-32.0) 01/27/22 17:35 Blood Urea Nitrogen 15 mg/dL (7-18) 01/27/22 17:35 Creatinine 0.7 mg/dL (0.55-1.02) 01/27/22 17:35 Estimated GFR/1.73 m2 >= 60.00 (mL/min/1.73m2) 01/27/22 17:35 Calcium Level 9.5 mg/dL (8.5-10.1) 01/27/22 17:35 Albumin 4.1 g/dL (3.4-5.0) 01/27/22 17:35 Glucose Level 81 mg/dL (74-106) 01/27/22 17:35 Liver Function Panel: Alanine Aminotransferase (ALT/SGPT) 34 U/L (14-59) 01/27/22 17: 35 Aspartate Amino Transf (AST/SGOT) 20 U/L (15-37) 01/27/22 17:35 Coagulation Panel: No Data to Display Cardiac Panel: No Data to Display Arterial Blood Gas: No Data to Display Venous Blood Gas: No Data to Display Pancreas Panel: No Data to Display Thyroid Panel: No Data to Display Infectious Disease: Coronavirus (COVID-19)(PCR) Negative (Negative) 02/16/22 10:30 Coronavirus 2019 Source Nasal/Nares 02/16/22 10:30 Blood Cultures: No Data to Display Toxicology Panel: No Data to Display Panel: No Data to Display Imaging and Studies Imaging and Studies Study information below may be from another EMR and interpreted by another provider. Please see original notes in EMR for more complete details. EKG Summary: Conclusion Sinus bradycardia...rate< 60. Sinus. No STEMI. I have reviewed and interpreted ECG and agree with software generated interpretation. Anesthesia Assessment and Plan Anesthesia History Personal History: No History of Anesthesia Complications Family History: No Family History of Anesthesia Complications Exercise Tolerance Exercise Tolerance: Metabolic Equivalents>4 Pertinent Negatives Pertinent Negatives: No Major Cardiovascular Symptoms or Complaints and No Major Pulmonary Symptoms or Complaints Cardiac & Pulmonary Exam Cardiac Exam: Normal S1/S2 Heart Sounds Pulmonary Exam: Clear Bilateral Breath Sounds Implantable Cardiac Device Does patient have a Pacemaker or an ICD?: No Airway Exam Known Difficult Airway: No Mallampati Class: 2 Mouth Opening: Normal (> 3cm) Thyromental Distance: Greater than 3 cm Neck Range of Motion: Full ROM Neck Circumference: Normal Teeth Condition: Normal Dentition ASA Classification ASA Score: ASA 3 Emergency Case?: No NPO Status NPO Status: NPO Clears >2 hours, Solids >8 hours Status Status: History of Hysterectomy Anesthesia Plan Resuscitation Status: Full Code Anesthesia Technique: General Anesthesia Airway Planned: LMA Monitors Used: Standard Monitors
--- NOTE | 2022-02-18 10:26 | HPE_ITS ---
Date of service: 02/18/22 Time of Service: 10:26 Assessment and Plan Assessment and plan (1) Kidney stone on left side: Status: Acute Assessment and plan: Since her stone remains symptomatic, we will address it with ureteroscopy and holmium laser lithotripsy. History of Present Illness History of Present Illness Chief Complaint: Left kidney stone Narrative: This is a 41-year-old woman who presented to the emergency department about 2 weeks ago with complaints of vaginal bleeding.? She describes having to wear 3-4 pads in a day.? When she was evaluated, her hemoglobin was normal and no blood was found within the vagina.? She was evaluated with a CT of the abdomen and pelvis.? Nonobstructing left kidney stones were identified and she was referred here to see me. She has had intermittent left sided pain.? The pain has remained in the left flank without radiation to the groin.? She has less severe pain on the right lower back.? She has no dysuria.? The hematuria has decreased. She has no nausea or vomiting. She has a history a gastric bypass about 1 year ago at [facility] [place].? She has no history of gout.? She has no known history of hyperparathyroidism and her serum calcium levels have been normal.? She is on a magnesium supplement daily. Review of Systems Narrative: No fevers or chills No vision change or dysphasia No diabetes or thyroid Exercise induced asthma. No hemoptysis No chest pain or palpitations s/p Gastric bypass. No hepatitis, ulcers, jaundice No seizures, strokes or peripheral neuropathy No bleeding disorders or anemia No gout or arthralgia PFSH All Active Problems (Updated 02/17/22 @ 12:17 by Niels Acuna) Anxiety and depression (Acute 02/12/14) Diabetes (Acute 02/12/14) diet controlled Elevated lipids (Acute 02/12/14) Migraine (Acute 02/12/14) Numbness of left hand (Acute 07/04/17) Tubular adenoma of colon (Acute 11/26/16) Carpal tunnel syndrome on both sides (Acute) Medial epicondylitis, left elbow (Acute) CHAPARRO (nonalcoholic steatohepatitis) (Acute) Viral illness (Acute) Migraine headache without aura (Acute) Right lateral epicondylitis (Acute) Medial epicondylitis, right elbow (Acute) Cubital tunnel syndrome on right (Acute) Right wrist sprain (Acute) Contusion of right forearm (Acute) Sprain of right elbow (Acute) Bradycardia (Acute) Vomiting (Acute) Hematemesis (Acute) Sinus bradycardia (Acute) Hypokalemia (Acute) H/O gastric bypass (Acute) Fall (Acute) Seizure disorder (Chronic) Bipolar 1 disorder (Acute) Gastric bypass status for obesity (Acute) Chest pain (Acute) Left ankle sprain (Acute) Kidney stone on left side (Acute) Medical History (Updated 02/17/22 @ 12:17 by Niels Acuna) Anxiety and depression Asthma Diabetes mellitus, type 2 Elevated lipids Migraine Obstructive sleep apnea syndrome pt. states she does not have this anymore r/t to gastric bypass Polycystic ovaries Surgical History anterior cruciate ligament reconstruction section twice Colonoscopy - MAC (11/26/16) Cubital tunnel syndrome on left (09/14/17) 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 (Date of Surgery: 03/02/18 and 10/02/2019) EGD - MAC (11/26/16) Endoscopic Carpal Tunnel release (01/14/09) 09/16/2010 REPEAT ECTR RIGHT Ligation of fallopian tube Open Carpal Tunnel release (10/23/12) RIGHT SIDE, left 8.14.14 Vaginal hysterectomy Social History Smoking/Tobacco Use Status: Former Tobacco Use Quit Date: 08/01/05 Smoking risk assessment performed?: Yes Alcohol Intake: never Drug use: Never Substance use type: does not use Household members: spouse and children Housing: other Details: trailer Current gender identity: female What is your relationship status?: Panel score (0-1 are the most socially isolated patients): 1 Seatbelt use: always Do you feel safe at home: Yes Do you feel safe in your relationship?: Yes Meds Allergies and Home Medications Allergies Allergy/AdvReac Type Severity Reaction Status Date / Time amoxicillin Allergy Severe Other (See Verified 02/18/22 09:36 Comment) artichoke Allergy Severe ANAPHYLAXIS Verified 02/18/22 09:36 Penicillins Allergy Intermediate HIVES Verified 02/18/22 09:36 sodium hypochlorite solution Allergy Intermediate HIVES/SOB Verified 02/18/22 09:36 [sodium hypochlorite] adhesive tape Allergy Mild Skin Rash Unverified 02/18/22 09:36 Home Medications Medication Instructions Recorded Confirmed Type pantoprazole 40 mg tablet,delayed 40 mg PO DAILY 05/11/19 02/18/22 History release docusate sodium 100 mg capsule 100 mg PO DAILY PRN 08/30/19 02/18/22 History sumatriptan succinate 50 mg tablet See Rx Instructions PO .COMPLEX PRN 11/27/19 02/18/22 History acetaminophen 500 mg tablet 500 mg PO Q6H PRN pain #60 tabs 05/28/20 02/18/22 Rx loratadine 10 mg capsule 10 mg PO DAILY PRN 01/21/21 02/18/22 History albuterol sulfate 90 mcg/actuation 2 inh inhalation Q6H PRN 03/23/21 02/18/22 History aerosol inhaler (ProAir HFA) fluticasone propionate 110 1 inh inhalation BID 03/23/21 02/18/22 History mcg/actuation HFA aerosol inhaler (Flovent HFA) biotin 1 mg capsule 1 mg PO BID 10/22/21 02/18/22 History divalproex 250 mg tablet,delayed 250 mg PO BID 10/22/21 02/18/22 History release magnesium L-lactate 84 mg 84 mg PO DAILY 10/22/21 02/18/22 History tablet,extended release (Magtab) hhkfhjsedkfg-Jg-ffgi-minerals 18 1 tab PO DAILY 10/22/21 02/18/22 History mg-0.4 mg tablet ursodiol 200 mg capsule 250 mg PO DAILY 10/22/21 02/18/22 History sucralfate 100 mg/mL oral 10 ml PO BID #200 mL 12/17/21 02/18/22 Rx suspension (Carafate) tramadol 50 mg tablet 50 mg PO Q6H PRN pain #20 tabs 02/09/22 02/18/22 Rx Exam Const General: cooperative Neck Neck: supple Resp Effort & Inspection: normal respiratory effort Auscultation: clear to auscultation bilaterally Cardio Rate: regular rate Rhythm: regular rhythm GI Palpation: soft and no masses Neuro General: patient alert, patient awake and patient oriented x3 Results Last Vital Signs Temp 36.4 C L 02/18/22 09:26 Pulse 49 L 02/18/22 09:26 Resp 19 02/18/22 09:26 BP 116/50 L 02/18/22 09:26 Pulse Ox 98 02/18/22 09:26
[2022-02-18] MEDS: GENTAMICIN 160 MG in Normal Saline 100 ML 208 MG IVPB (11:16)
[2022-02-18] MEDS: Lidocaine 2% Jelly 6 ML SYR (11:30)
[2022-02-18] MEDS: Omnipaque 300 MG/ML 50 ML BTL (11:37)
--- NOTE | 2022-02-18 11:44 | W.PM.DSUDISC ---
Discharge Plan Disposition Patient Disposition: HOME Condition: Good Discharge Details Reason For Visit: left renal stone Attending Provider: Mika Sandy Primary Care Provider: Deyanira Marcus Home Meds and New Rx's Prescriptions: No Action docusate sodium 100 mg capsule 100 mg PO DAILY PRN tramadol 50 mg tablet 50 mg PO Q6H PRN (Reason: pain) Qty: 20 0RF Rx Instructions: may take along with Tylenol sumatriptan succinate 50 mg tablet See Rx Instructions PO .COMPLEX PRN Rx Instructions: take 1 tab at onset of headache; if no relief may repeat 1 tab after at least 2 hrs; max = 4 tabs/24 hr PO albuterol sulfate [ProAir HFA] 90 mcg/actuation HFA aerosol inhaler 2 inh inhalation Q6H PRN fluticasone propionate [Flovent HFA] 110 mcg/actuation HFA aerosol inhaler 1 inh inhalation BID ursodiol 200 mg capsule 250 mg PO DAILY magnesium L-lactate [Magtab] 84 mg tablet extended release 84 mg PO DAILY biotin 1 mg capsule 1 mg PO BID divalproex 250 mg tablet,delayed release (DR/EC) 250 mg PO BID jjahmxwkulih-Am-mvyr-minerals 18-0.4 mg tablet 1 tab PO DAILY pantoprazole 40 mg Tablet,Delayed Release (Dr/Ec) 40 mg PO DAILY loratadine 10 mg capsule 10 mg PO DAILY PRN sucralfate [Carafate] 100 mg/mL suspension 10 ml PO BID Qty: 200 1RF acetaminophen 500 mg tablet 500 mg PO Q6H PRN (Reason: pain) Qty: 60 0RF Discharge Instructions Additional Instructions: expect call from my office staff to arrange cystoscopy, stent removal, ureteroscopy and holmium laser lithotripsy of stone (@ 1 week) Activity:: Activity as Tolerated Shower/Bathe:: 24 hours Diet:: As Tolerated Discharge Orders Discharge Orders: Discharge Order (Routine); Ordered 02/18/22 Ordered By: Mika Sandy DS: Diagnosis Discharge Diagnosis (1) Kidney stone on left side: Status: Acute
--- NOTE | 2022-02-18 11:51 | W.PM.OP ---
Date of service: 02/18/22 Time of Service: 11:52 Operative Note Operative Note DATE OF PROCEDURE: 02/18/22 PRE-OP DIAGNOSIS: Left renal stone POST-OP DIAGNOSIS: same PROCEDURE: cystoscopy, left retrograde pyelogram, left ureteral dilation, insert left ureteral stent SURGEON: Mika Sandy ANESTHESIA TYPE: General LMA/ETT Refer to Anesthesia Record ESTIMATED BLOOD LOSS: 0 PATHOLOGY: none sent COMPLICATIONS: None Patient was transported to: PACU Patient's condition: stable Implants: 7 [place] by 22 to 30 cm left ureteral stent Indications: This is a 41-year-old woman who presented to the emergency department with what she described as vaginal bleeding. On examination, no blood was found within the vaginal cavity. She did have blood within the urine. She was evaluated with a CT scan and found to have a stone in the left renal pelvis. She is remains symptomatic with flank pain. She presents now for stone manipulation. Findings: narrow left distal ureter - unable to pass dual lumen catheter in spite of distal ureteral dilation Procedure Description: The patient was given preoperative IV antibiotics. After successful induction of general anesthesia, she was placed in the dorsal lithotomy position. Her genitalia was prepped and draped. 2% Xylocaine jelly was instilled into the urethra to act as a local anesthetic. A 22 [place] rigid cystoscope was passed through the urethra into the bladder. The bladder was inspected with a 30 degree lens. Both ureteral orifices appeared normal with no blood seen coming from either side. I cannulated the left ureteral orifice with a 5 [place] access catheter and performed a retrograde pyelogram by injecting Omnipaque through the access catheter under fluoroscopic guidance. A filling defect could be seen in the left renal pelvis. I then passed a guidewire through the lumen of the access catheter and removed the catheter. I attempted to pass a dual-lumen catheter over the wire, but I was unable to advance the dual-lumen catheter more than an inch or 2 into the ureter. I then removed the dual-lumen catheter and advanced a UroMax balloon over the wire. I was able to dilate the distal ureter using the UroMax. I then attempted to reach the passed the dual-lumen catheter but again I was unable to successfully pass a catheter up the entire ureter. Of the different passing catheter, I elected to place a ureteral stent and to address the stone is a staged procedure. I passed a 7 [place] variable length stent over the wire and positioned the stent with the proximal end curled in the upper pole calyx and the distal end curled within the bladder. The positioning of the stent was confirmed both fluoroscopically and cystoscopically. Plans will be made to return to the operating room in at least a week. We will plan on removing the ureteral stent and running a flexible ureteroscope up to the stone in the renal pelvis. We will then treat the stone with the holmium laser. The patient tolerated this procedure well with no complications. She was taken to the recovery room in stable condition.
[2022-02-18] MEDS: fentaNYL 100 MCG/2 ML VIAL IVP (12:00)
[2022-02-18] MEDS: Phenazopyridine 200 MG TAB PO (12:42)
--- NOTE | 2022-02-18 13:01 | W.ANESPOSTOP ---
Postoperative Evaluation Date, Time and Location Date Performed: 02/18/22 Time Performed: 13:01 Patient Location: Day Surgery Unit Vital Signs Most Recent Imported Vital Signs: Most Recent Vital Signs Temp Pulse Resp BP Pulse Ox 36.3 C L 41 L 18 136/63 99 02/18/22 12:54 02/18/22 12:54 02/18/22 12:54 02/18/22 12:54 02/18/22 12:54 Pain Score Most Recent Pain Score: Most Recent Pain Score Pain Level 3 02/18/22 12:54 Assessment Mental Status: Awake (Alert & Oriented to Patient Baseline) Airway and Respiratory Function: Patent airway with normal (patient baseline) respiratory exam Cardiovascular Function: Hemodynamically Stable Hydration Status: Adequately Hydrated Nausea & Vomiting: No Nausea or Vomiting Pain: Pain is tolerable per patient Peripheral Nerve Block: Patient did not receive a nerve block
== END 2022-02-18 13:32 | disposition home or self-care (01) ==
PROVIDERS: PCP Nurse Practitioner Family; Visit Provider Urology
PROC: (CPT 52332; principal; 2022-02-18 10:45)
DX: N20.0 Calculus of kidney (principal); E11.9 Type 2 diabetes mellitus without complications; K75.81 Nonalcoholic steatohepatitis (NASH); E78.5 Hyperlipidemia, unspecified; J45.909 Unspecified asthma, uncomplicated
CPT/HCPCS: 52332; 52341; 74420; J1100; J1580; J1885; J2405; J3010; Q9967

== ENCOUNTER 2022-02-23 15:44 | Outpatient (REF) | payer MEDICAID, SELFPAY ==
[2022-02-23 12:16] LABS: Source Nasal/Nares
[2022-02-23 16:22] LABS: COVID-19 PCR Negative (Negative)
== END 2022-02-23 15:45 | disposition home or self-care (01) ==
LOC: LBN 15:44
PROVIDERS: PCP Nurse Practitioner Family; Visit Provider Urology
DX: N39.0 Urinary tract infection, site not specified (principal); Z20.822 Contact with and (suspected) exposure to COVID-19
CPT/HCPCS: 87635; 87086

== ENCOUNTER 2022-02-25 05:57 | Day surgery (SDC) | payer MEDICAID, SELFPAY ==
[2022-02-25] VITALS (7 sets, daily range): BP systolic 105–132; BP diastolic 36–75; PULSE 44–52; RESP 12–17; TEMP 36–36.5; O2SAT 97–100; BMI 26.8
--- NOTE | 2022-02-25 06:48 | W.PM.HP.N ---
Date of service: 02/25/22 Time of Service: 06:48 Assessment and Plan Assessment and plan (1) Kidney stone on left side: Status: Acute Assessment and plan: For cystoscopy, remove left ureteral stent, left flexible ureteroscopy and holmium laser lithotripsy of the stone. History of Present Illness History of Present Illness Chief Complaint: Left renal stone Narrative: This is a 41 year old woman who presented to the ED with what she described as vaginal bleeding. There was no blood in the vaginal vauult on exam, but there was gross hematuria. On imaging studies, she was found to have a stone in the left renal pelvis. We brought her to the OR about a week ago for planned ureteroscopy. Her ureter was so narrow that I was unable to pass the ureteroscope. I placed a ureteral stent to allow the ureter to dilate. She presents back for ureteroscopy and holmium laser lithotripsy of her stone. Review of Systems Narrative: No fevers or chills No vision change or dysphasia No diabetes or thyroid Exercise induced asthma. No cough or hemoptysis No chest pain or palpitations Prior gastric bypass. No ulcers or jaundice Hx migraine headaches. No seizures, strokes or peripheral neuropathy No bleeding disorders or anemia Hx carpal and cubital tunnel syndromes. No gout PFSH All Active Problems Anxiety and depression (Acute 02/12/14) Diabetes (Acute 02/12/14) diet controlled Elevated lipids (Acute 02/12/14) Migraine (Acute 02/12/14) Numbness of left hand (Acute 07/04/17) Tubular adenoma of colon (Acute 11/26/16) Carpal tunnel syndrome on both sides (Acute) Medial epicondylitis, left elbow (Acute) CHAPARRO (nonalcoholic steatohepatitis) (Acute) Viral illness (Acute) Migraine headache without aura (Acute) Right lateral epicondylitis (Acute) Medial epicondylitis, right elbow (Acute) Cubital tunnel syndrome on right (Acute) Right wrist sprain (Acute) Contusion of right forearm (Acute) Sprain of right elbow (Acute) Bradycardia (Acute) Vomiting (Acute) Hematemesis (Acute) Sinus bradycardia (Acute) Hypokalemia (Acute) H/O gastric bypass (Acute) Fall (Acute) Seizure disorder (Chronic) Bipolar 1 disorder (Acute) Gastric bypass status for obesity (Acute) Chest pain (Acute) Left ankle sprain (Acute) Kidney stone on left side (Acute) Medical History Anxiety and depression Asthma Diabetes mellitus, type 2 Elevated lipids Migraine Obstructive sleep apnea syndrome pt. states she does not have this anymore r/t to gastric bypass Polycystic ovaries Surgical History (Updated 02/25/22 @ 06:45 by Emelyn Arguelles) anterior cruciate ligament reconstruction section twice Colonoscopy - MAC (11/26/16) Cubital tunnel syndrome on left (09/14/17) 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 (Date of Surgery: 03/02/18 and 10/02/2019) EGD - MAC (11/26/16) Endoscopic Carpal Tunnel release (01/14/09) 09/16/2010 REPEAT ECTR RIGHT History of lumbar surgery Pt reports lower back disc, rods and screws 5 years ago, 2017' Ligation of fallopian tube Open Carpal Tunnel release (10/23/12) RIGHT SIDE, left 8.14.14 Vaginal hysterectomy Social History Smoking/Tobacco Use Status: Former Tobacco Use Quit Date: 08/01/05 Smoking risk assessment performed?: Yes Alcohol Intake: never Drug use: Never Substance use type: does not use Household members: spouse and children Housing: other Details: trailer Current gender identity: female What is your relationship status?: Panel score (0-1 are the most socially isolated patients): 1 Seatbelt use: always Do you feel safe at home: Yes Do you feel safe in your relationship?: Yes Meds Allergies and Home Medications Allergies Allergy/AdvReac Type Severity Reaction Status Date / Time amoxicillin Allergy Severe trouble Verified 02/25/22 06:26 breathing and a rash artichoke Allergy Severe ANAPHYLAXIS Verified 02/25/22 06:26 Penicillins Allergy Intermediate HIVES Verified 02/25/22 06:26 sodium hypochlorite solution Allergy Intermediate HIVES/SOB Verified 02/25/22 06:26 [sodium hypochlorite] adhesive tape Allergy Mild Skin Rash Unverified 02/25/22 06:26 Home Medications Medication Instructions Recorded Confirmed Type pantoprazole 40 mg tablet,delayed 40 mg PO DAILY 05/11/19 02/25/22 History release docusate sodium 100 mg capsule 100 mg PO DAILY PRN 08/30/19 02/24/22 History sumatriptan succinate 50 mg tablet See Rx Instructions PO .COMPLEX PRN 11/27/19 02/25/22 History acetaminophen 500 mg tablet 500 mg PO Q6H PRN pain #60 tabs 05/28/20 02/25/22 Rx loratadine 10 mg capsule 10 mg PO DAILY PRN 01/21/21 02/24/22 History albuterol sulfate 90 mcg/actuation 2 inh inhalation Q6H PRN 03/23/21 02/24/22 History aerosol inhaler (ProAir HFA) fluticasone propionate 110 1 inh inhalation BID 03/23/21 02/24/22 History mcg/actuation HFA aerosol inhaler (Flovent HFA) biotin 1 mg capsule 1 mg PO BID 10/22/21 02/25/22 History divalproex 250 mg tablet,delayed 250 mg PO BID 10/22/21 02/25/22 History release magnesium L-lactate 84 mg 84 mg PO DAILY 10/22/21 02/25/22 History tablet,extended release (Magtab) zgklqeshixzg-Oq-asod-minerals 18 1 tab PO DAILY 10/22/21 02/25/22 History mg-0.4 mg tablet ursodiol 200 mg capsule 250 mg PO DAILY 10/22/21 02/25/22 History sucralfate 100 mg/mL oral 10 ml PO BID #200 mL 12/17/21 02/25/22 Rx suspension (Carafate) tramadol 50 mg tablet 50 mg PO Q6H PRN pain #20 tabs 02/09/22 02/25/22 Rx Exam Const General: cooperative Neck Neck: supple Resp Effort & Inspection: normal respiratory effort Auscultation: clear to auscultation bilaterally Cardio Rate: regular rate Rhythm: regular rhythm GI Palpation: soft and no masses Neuro General: patient alert, patient awake and patient oriented x3 Results Last Vital Signs Temp 36.5 C 02/25/22 06:38 Pulse 50 L 02/25/22 06:38 Resp 12 02/25/22 06:38 BP 127/63 02/25/22 06:38 Pulse Ox 98 02/25/22 06:38
--- NOTE | 2022-02-25 06:53 | ANES.PREOP_ITS ---
General Info Date of Service Date Performed: 02/25/22 Height: 5 ft 6 in Weight: 75.3 kg Body Mass Index (BMI): 26.8 Surgical Procedure: Operation Date: 02/25/22 07:40 Proposed Procedure Side Surgeon p Cystoscopy/Laser/Retrograde/Ureteroscopy/Removal Ureteral Stent Left Mika Sandy MD Meds Allergies and Home Medications Allergies Allergy/AdvReac Type Severity Reaction Status Date / Time amoxicillin Allergy Severe trouble Verified 02/25/22 06:26 breathing and a rash artichoke Allergy Severe ANAPHYLAXIS Verified 02/25/22 06:26 Penicillins Allergy Intermediate HIVES Verified 02/25/22 06:26 sodium hypochlorite solution Allergy Intermediate HIVES/SOB Verified 02/25/22 06:26 [sodium hypochlorite] adhesive tape Allergy Mild Skin Rash Unverified 02/25/22 06:26 Home Medication Medication Instructions Recorded pantoprazole 40 mg tablet,delayed 40 mg PO DAILY 05/11/19 release docusate sodium 100 mg capsule 100 mg PO DAILY PRN 08/30/19 sumatriptan succinate 50 mg tablet See Rx Instructions PO .COMPLEX PRN 11/27/19 acetaminophen 500 mg tablet 500 mg PO Q6H PRN pain #60 tabs 05/28/20 loratadine 10 mg capsule 10 mg PO DAILY PRN 01/21/21 albuterol sulfate 90 mcg/actuation 2 inh inhalation Q6H PRN 03/23/21 aerosol inhaler (ProAir HFA) fluticasone propionate 110 1 inh inhalation BID 03/23/21 mcg/actuation HFA aerosol inhaler (Flovent HFA) biotin 1 mg capsule 1 mg PO BID 10/22/21 divalproex 250 mg tablet,delayed 250 mg PO BID 10/22/21 release magnesium L-lactate 84 mg 84 mg PO DAILY 10/22/21 tablet,extended release (Magtab) jhevahbjaclt-Ck-xlet-minerals 18 1 tab PO DAILY 10/22/21 mg-0.4 mg tablet ursodiol 200 mg capsule 250 mg PO DAILY 10/22/21 sucralfate 100 mg/mL oral 10 ml PO BID #200 mL 12/17/21 suspension (Carafate) tramadol 50 mg tablet 50 mg PO Q6H PRN pain #20 tabs 02/09/22 Current Visit Medications: Current Medications Generic Name Dose Route Start Last Admin Trade Name [place] PRN Reason Stop Dose Admin Ringer's Solution 1,000 mls @ 80 mls/hr 02/25/22 06:00 IV 03/26/22 23:59 INFUSION CORKY Gentamicin Sulfate 160 mg/ 104 mls @ 208 mls/hr 02/25/22 06:00 Sodium Chloride IVPB 02/25/22 16:00 PREOP CORKY IV Miscellaneous Supplies 1 each 02/25/22 06:00 Iv Access IV 03/26/22 23:59 DIRECTED CORKY Sodium Chloride 0 ml 02/25/22 06:00 Normal Saline Flush 10 Ml Syr IV 03/26/22 23:59 PRN PRN Sodium Chloride 0 ml 02/25/22 06:00 Normal Saline 10 Ml Vial IJ 03/26/22 23:59 DIRECTED PRN Sterile Water 0 ml 02/25/22 06:00 Water,Injection,Sterile 10 Ml Vial IJ 03/26/22 23:59 DIRECTED PRN PFSH Active Problems Active Problems: Problem Status Onset Code Anxiety and depression 02/12/14 F41.9, F32.9 Diabetes 02/12/14 E11.9 Elevated lipids 02/12/14 E78.5 Migraine 02/12/14 G43.909 Numbness of left hand 07/04/17 R20.0 Tubular adenoma of colon 11/26/16 D12.6 Carpal tunnel syndrome on both sides G56.03 Medial epicondylitis, left elbow M77.02 CHAPARRO (nonalcoholic steatohepatitis) K75.81 Viral illness B34.9 Migraine headache without aura G43.009 Right lateral epicondylitis M77.11 Medial epicondylitis, right elbow M77.01 Cubital tunnel syndrome on right G56.21 Right wrist sprain S63.501A Contusion of right forearm S50.11XA Sprain of right elbow S53.401A Bradycardia R00.1 Vomiting R11.10 Hematemesis K92.0 Sinus bradycardia R00.1 Hypokalemia E87.6 H/O gastric bypass Z98.84 Fall W19.XXXA Seizure disorder G40.909 Bipolar 1 disorder F31.9 Gastric bypass status for obesity Z98.84 Chest pain R07.9 Left ankle sprain S93.402A Kidney stone on left side N20.0 Medical History Medical History Anxiety and depression Asthma Diabetes mellitus, type 2 Elevated lipids Migraine Obstructive sleep apnea syndrome pt. states she does not have this anymore r/t to gastric bypass Polycystic ovaries Medical History Comments:: adhesive tape allergy Surgical History Surgical History (Updated 02/25/22 @ 06:45 by Emelyn Arguelles) anterior cruciate ligament reconstruction section twice Colonoscopy - MAC (11/26/16) Cubital tunnel syndrome on left (09/14/17) 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 (Date of Surgery: 03/02/18 and 10/02/2019) EGD - MAC (11/26/16) Endoscopic Carpal Tunnel release (01/14/09) 09/16/2010 REPEAT ECTR RIGHT History of lumbar surgery Pt reports lower back disc, rods and screws 5 years ago, 2017' Ligation of fallopian tube Open Carpal Tunnel release (10/23/12) RIGHT SIDE, left 8.14.14 Vaginal hysterectomy Tobacco Smoking/Tobacco Use Status: Former Tobacco Use Alcohol Alcohol Intake: never Substance Use Substance use: Never Substance use type: does not use Vital Signs and Lab Results Vital Signs Most Recent Vital Signs in EMR: Most Recent Vital Signs Temp Pulse Resp BP Pulse Ox 36.5 C 50 L 12 127/63 98 02/25/22 06:38 02/25/22 06:38 02/25/22 06:38 02/25/22 06:38 02/25/22 06:38 Lab Results Blood Type / Crossmatch: No Data to Display Complete Blood Count: White Blood Count 10.30 10^3/uL (4.4-10.8) 01/27/22 17:35 Red Blood Count 4.67 10^6/uL (3.93-5.22) 01/27/22 17:35 Hemoglobin 13.8 g/dL (11.2-15.7) 01/27/22 17:35 Hematocrit 39.4 % (36.0-46.0) 01/27/22 17:35 Platelet Count 240 10^3/uL (130-400) 01/27/22 17:35 Complete Metabolic Panel: Sodium Level 139 mmol/L (136-145) 01/27/22 17:35 Potassium Level 3.5 mmol/L (3.5-5.1) 01/27/22 17:35 Chloride Level 102 mmol/L (98-107) 01/27/22 17:35 Carbon Dioxide Level 28.3 mmol/L (21.0-32.0) 01/27/22 17:35 Blood Urea Nitrogen 15 mg/dL (7-18) 01/27/22 17:35 Creatinine 0.7 mg/dL (0.55-1.02) 01/27/22 17:35 Estimated GFR/1.73 m2 >= 60.00 (mL/min/1.73m2) 01/27/22 17:35 Calcium Level 9.5 mg/dL (8.5-10.1) 01/27/22 17:35 Albumin 4.1 g/dL (3.4-5.0) 01/27/22 17:35 Glucose Level 81 mg/dL (74-106) 01/27/22 17:35 Liver Function Panel: Alanine Aminotransferase (ALT/SGPT) 34 U/L (14-59) 01/27/22 17: 35 Aspartate Amino Transf (AST/SGOT) 20 U/L (15-37) 01/27/22 17:35 Coagulation Panel: No Data to Display Cardiac Panel: No Data to Display Arterial Blood Gas: No Data to Display Venous Blood Gas: No Data to Display Pancreas Panel: No Data to Display Thyroid Panel: No Data to Display Infectious Disease: Coronavirus (COVID-19)(PCR) Negative (Negative) 02/23/22 10:00 Coronavirus 2019 Source Nasal/Nares 02/23/22 10:00 Blood Cultures: No Data to Display Toxicology Panel: No Data to Display Panel: No Data to Display Imaging and Studies Imaging and Studies Study information below may be from another EMR and interpreted by another provider. Please see original notes in EMR for more complete details. EKG Summary: Conclusion Sinus bradycardia...rate< 60. Sinus. No STEMI. I have reviewed and interpreted ECG and agree with software generated interpretation. Anesthesia Assessment and Plan Anesthesia History Personal History: No History of Anesthesia Complications Family History: No Family History of Anesthesia Complications Exercise Tolerance Exercise Tolerance: Metabolic Equivalents>4 Pertinent Negatives Pertinent Negatives: No Symptoms of GERD, No Major Cardiovascular Symptoms or Complaints, No Major Pulmonary Symptoms or Complaints and No History of CVA/TIA (Seizures last one 9 years ago ) Cardiac & Pulmonary Exam Cardiac Exam: Normal S1/S2 Heart Sounds Pulmonary Exam: Clear Bilateral Breath Sounds Implantable Cardiac Device Does patient have a Pacemaker or an ICD?: No Airway Exam Known Difficult Airway: No Mallampati Class: 2 Mouth Opening: Normal (> 3cm) Thyromental Distance: Greater than 3 cm Neck Range of Motion: Full ROM Neck Circumference: Normal Teeth Condition: Normal Dentition ASA Classification ASA Score: ASA 2 Emergency Case?: No NPO Status NPO Status: NPO Clears >2 hours, Solids >8 hours Status Status: History of Hysterectomy Anesthesia Plan Resuscitation Status: Full Code Anesthesia Technique: General Anesthesia Airway Planned: Natural Airway Monitors Used: Standard Monitors
[2022-02-25] MEDS: Lactated Ringers 1,000 ML 80 ML IV (06:55)
[2022-02-25] MEDS: GENTAMICIN 160 MG in Normal Saline 100 ML 208 MG IVPB (07:42)
[2022-02-25] MEDS: Lidocaine 2% Jelly 6 ML SYR (07:49)
--- NOTE | 2022-02-25 08:22 | DI.RAD_ITS ---
Exam(s) XR RETROGRADE IN OR EXAM: XR RETROGRADE IN OR CLINICAL HISTORY: left kidney stone TECHNIQUE: 2D and realtime digital imaging was performed. CONTRAST MATERIAL: Refer to procedure report. COMPARISON: No exams were available for comparison FINDINGS: Fluoroscopy was provided for Dr. Sandy during the performance of a retrograde evaluation of the sudheer l collecting system. Please refer to the procedure report for complete details. Ka,r=6.6 mGy IMPRESSION: RADIATION DOSE DELIVERED:
--- NOTE | 2022-02-25 08:31 | PDOC.DSDIS_ITS ---
Discharge Plan Disposition Patient Disposition: HOME Condition: Good Discharge Details Reason For Visit: renal stone Attending Provider: Mika Sandy Primary Care Provider: Deyanira Marcus Home Meds and New Rx's Prescriptions: Continued docusate sodium 100 mg capsule 100 mg PO DAILY PRN sumatriptan succinate 50 mg tablet See Rx Instructions PO .COMPLEX PRN Rx Instructions: take 1 tab at onset of headache; if no relief may repeat 1 tab after at least 2 hrs; max = 4 tabs/24 hr PO albuterol sulfate [ProAir HFA] 90 mcg/actuation HFA aerosol inhaler 2 inh inhalation Q6H PRN fluticasone propionate [Flovent HFA] 110 mcg/actuation HFA aerosol inhaler 1 inh inhalation BID ursodiol 200 mg capsule 250 mg PO DAILY magnesium L-lactate [Magtab] 84 mg tablet extended release 84 mg PO DAILY biotin 1 mg capsule 1 mg PO BID divalproex 250 mg tablet,delayed release (DR/EC) 250 mg PO BID rglxcsjgkrmz-Ei-whja-minerals 18-0.4 mg tablet 1 tab PO DAILY pantoprazole 40 mg Tablet,Delayed Release (Dr/Ec) 40 mg PO DAILY loratadine 10 mg capsule 10 mg PO DAILY PRN sucralfate [Carafate] 100 mg/mL suspension 10 ml PO BID Qty: 200 1RF acetaminophen 500 mg tablet 500 mg PO Q6H PRN (Reason: pain) Qty: 60 0RF tramadol 50 mg tablet 50 mg PO Q6H MDD 4 PRN (Reason: pain) Qty: 20 0RF Rx Instructions: may take along with Tylenol Discharge Instructions Additional Instructions: followup 3 to 7 days for stent removal - tell my office pt has string on end of her stent followup appt with me 6 to 8 weeks [facility] renal ultrasound no need to strain urine new prescription for tramadol sent to pharmacy Activity:: Activity as Tolerated Shower/Bathe:: 24 hours Diet:: As Tolerated Discharge Orders Discharge Orders: Discharge Order (Routine); Ordered 02/25/22 Ordered By: Mika Sandy DS: Diagnosis Discharge Diagnosis (1) Kidney stone on left side: Status: Acute
--- NOTE | 2022-02-25 08:42 | ROE_ITS ---
Date of service: 02/25/22 Time of Service: 08:42 Operative Note Operative Note DATE OF PROCEDURE: 02/25/22 PRE-OP DIAGNOSIS: Left renal stone POST-OP DIAGNOSIS: same PROCEDURE: Cystoscopy, remove left ureteral stent, left retrograde pyelogram, left flexible ureteroscopy, holmium laser lithotripsy of stone, extraction of stone fragments, insert left ureteral stent SURGEON: Mika Sandy ANESTHESIA TYPE: General LMA/ETT Refer to Anesthesia Record ESTIMATED BLOOD LOSS: 20 PATHOLOGY: other (stone for chemical analysis) COMPLICATIONS: None Patient was transported to: PACU Patient's condition: stable Implants: 4.8 M[place]gasque by 22 to 30 cm left ureteral stent Indications: Is a 41-year-old woman who initially presented to the emergency department with what she thought was blood from the vaginal cavity. On examination, there was no blood in the vaginal vault, but she had gross hematuria. Her imaging studies demonstrated a left kidney stone. A week ago, we brought her to the operating room with hopes of doing left ureteroscopy. I was unable to pass the scope up the ureter, so we placed a uret eral stent. She comes back today for a staged ureteroscopy. Findings: stone in left renal pelvis Procedure Description: Patient was given a dose of IV antibiotics. She was brought to the operating room on 02/25/2022. After successful induction of general anesthesia, she was placed in the dorsal lithotomy position. Her genitalia was prepped and draped. 2% Xylocaine jelly was then instilled into the urethra A 22 [place] rigid cystoscope was passed through the urethra into the bladder. The bladder was inspected with the 30 degree lens. The stent could be seen protruding from the left ureteral orifice. The stent was grasped with alligator forceps and was brought to the level of the urethral meatus. Glidewire was advanced through the lumen of the stent and the stent was removed leaving the wire in place. A dual-lumen catheter was then advanced over the wire and a second wire was positioned. We chose one of the wires as a working wire and the other 1 is a safety wire. I then passed the ureteral access sheath over the working wire leaving the safety wire in place. The flexible ureteroscope was then introduced through the access sheath up to the level of the renal pelvis. Omnipaque was injected through the lumen of the scope in the renal calyces and renal pelvis were outlined. A filling defect was seen in the renal pelvis inferiorly. We then were able to visualize the stone and we treated the stone with a 272 ?m holmium laser fiber. We used dusting settings of a rate of 8 and a power of 200. As the stone fragmented, to large fragments were grasped in a 0 tip stone basket and extracted. These fragments were sent to the laboratory for chemical analysis. Repeat retrograde pyelogram showed no residual filling defects. Each of the calyces were inspected and no large stone fragments were visualized. The ureteral access sheath was then removed. The ureter was inspected as the ureteroscope was withdrawn. No ureteral stone fragments were identified. We then passed a 4.8 [place] variable length stent over the safety wire. The stent was positioned with the proximal end curled in the renal pelvis and the distal end curled within the bladder. The positioning of the stent was confirmed both fluoroscopically and cystoscopically. The safety string was left on place and brought through the patient's urethra. The end of the string was tucked into the patient's vaginal cavity. The patient tolerated the procedure well with no complications.
[2022-02-25] MEDS: Phenazopyridine 200 MG TAB PO (09:42)
--- NOTE | 2022-02-25 19:27 | W.ANESPOSTOP ---
Postoperative Evaluation Date, Time and Location Date Performed: 02/25/22 Time Performed: 09:52 Patient Location: Day Surgery Unit Vital Signs Most Recent Imported Vital Signs: Most Recent Vital Signs Temp Pulse Resp BP Pulse Ox 36.2 C L 45 L 15 132/75 100 02/25/22 09:50 02/25/22 09:50 02/25/22 09:50 02/25/22 09:50 02/25/22 09:50 Pain Score Most Recent Pain Score: Most Recent Pain Score Pain Level 0 02/25/22 09:50 Assessment Mental Status: Awake (Alert & Oriented to Patient Baseline) Airway and Respiratory Function: Patent airway with normal (patient baseline) respiratory exam Cardiovascular Function: Hemodynamically Stable Hydration Status: Adequately Hydrated Nausea & Vomiting: No Nausea or Vomiting Pain: Pt. Denies Any Pain Peripheral Nerve Block: Patient did not receive a nerve block
[2022-03-04 22:25] LABS: Source: Left Kidney
== END 2022-02-25 10:37 | disposition home or self-care (01) ==
PROVIDERS: PCP Nurse Practitioner Family; Visit Provider Urology
PROC: (CPT 52353; principal; 2022-02-25 07:30)
DX: N20.0 Calculus of kidney (principal); K75.81 Nonalcoholic steatohepatitis (NASH); Z98.84 Bariatric surgery status; E11.9 Type 2 diabetes mellitus without complications
CPT/HCPCS: 52353; 74420; 82365; J1100; J1580; J1885; J2250; J2405

== ENCOUNTER 2022-02-26 04:03 | Emergency (ER) | payer MEDICAID, SELFPAY ==
[2022-02-26 04:08] VITALS: BP 134/41; PULSE 52; RESP 16; TEMP 36.1; O2SAT 99
[2022-02-26 04:26] LABS: Bilirubin Small (Negative); Blood Large (Negative); Clarity Cloudy (Clear); Glucose Negative (Negative); Ketones Negative (Negative); Leukocyte Esterase Negative (Negative); Nitrite Positive (Negative); Specific Gravity >= 1.030 (1.005-1.025); Urobilinogen 0.2 EU/dL (Up TO 0.2)
--- NOTE | 2022-02-26 04:27 | ED.GENADUL_ITS ---
Discharge Plan Disposition Patient Disposition: HOME Condition: Stable Discharge Details Clinical Impression: UTI (urinary tract infection) Primary Care Provider: Deyanira Marcus ED Provider: Dustin Blanco Home Meds and New Rx's Prescriptions: New levofloxacin 750 mg tablet 750 mg PO DAILY 6 Days Qty: 6 0RF ketorolac 10 mg tablet 10 mg PO TID PRN5 Days Qty: 15 0RF Continued docusate sodium 100 mg capsule 100 mg PO DAILY PRN sumatriptan succinate 50 mg tablet See Rx Instructions PO .COMPLEX PRN Rx Instructions: take 1 tab at onset of headache; if no relief may repeat 1 tab after at least 2 hrs; max = 4 tabs/24 hr PO albuterol sulfate [ProAir HFA] 90 mcg/actuation HFA aerosol inhaler 2 inh inhalation Q6H PRN fluticasone propionate [Flovent HFA] 110 mcg/actuation HFA aerosol inhaler 1 inh inhalation BID ursodiol 200 mg capsule 250 mg PO DAILY magnesium L-lactate [Magtab] 84 mg tablet extended release 84 mg PO DAILY biotin 1 mg capsule 1 mg PO BID divalproex 250 mg tablet,delayed release (DR/EC) 250 mg PO BID jlxbklnvvzls-Sz-cpcf-minerals 18-0.4 mg tablet 1 tab PO DAILY pantoprazole 40 mg Tablet,Delayed Release (Dr/Ec) 40 mg PO DAILY loratadine 10 mg capsule 10 mg PO DAILY PRN sucralfate [Carafate] 100 mg/mL suspension 10 ml PO BID Qty: 200 1RF acetaminophen 500 mg tablet 500 mg PO Q6H PRN (Reason: pain) Qty: 60 0RF tramadol 50 mg tablet 50 mg PO Q6H MDD 4 PRN (Reason: pain) Qty: 20 0RF Rx Instructions: may take along with Tylenol Discharge Instructions Instructions: Urinary Tract Infection in Women (ED) Additional Instructions: follow up with Dr. Sandy if you feel more ill, have severe worsening pain or fevers return to the emergency department Stand Alone Forms: Work Release Medical Decision Making 41 yo female with hx of kidney stones comes in with left flank pain. She had a stent placed earlier this month on the left side and yesterday had it removed and a small stent was placed. She states around 630pm last night she went to the bathroom and while wiping pulled the string of the stent and it came out. She has had left lower back pain since then and couldn't sleep so came here. She denies fevers, chills, chest pain, dyspnea. She has no cva tenderness or abdominal tenderness. I suspect her pain is from the stent removal or kidney stones. Will treat her pain and reassess ua shows positive nitrites which she didn't have on prior ua, will obtain ct to evaluate for infected stone pt feeling better, pain down from 10/10 to 5/10. No stone on my read of the ct. awaiting ct results. ct shows edematous left kidney with evidence of recent intervention vs infectious etiology and no stone. Suspect most of this is related to the procedure but given she is nitrite positive treated with levofloxacin. Unable to get a hold of Dr. Sandy. Patient still feels well and has no pain now and feels well enough to go home. Given no obstructing stone and tolerating po will d/c on levolfoxacin and advised to f/u with pcp, return precautions given Differential Diagnosis Differential Diagnosis: kidney stone, ureter stent pain Medical Records Medical records reviewed: Yes I reviewed the patient's medical records. Imaging Data Radiologic Study: Attestation: I personally reviewed and interpreted this imaging study as follows: Imaging: CT Scan Radiologist's impression: IMPRESSION: Edematous left kidney with mild/moderate hydroureteronephrosis, perinephric/periureteral stranding and small gas bubble in renal collecting system superiorly, likely related to recent intervention. Correlate with urinalysis to exclude infection. No obstructing stone in left ureter. Punctate nonobstructing bilateral nephrolithiasis. Mildly thick-walled bladder, possibly due to underdistention. Tiny nondependent air bubble within bladder may be related to recent intervention. Correlate with urinalysis to exclude cystitis. No bladder stone. Additional findings as discussed above. Lab Data Lab results reviewed: Yes I reviewed the patient's lab results. HPI General Mode of arrival: ambulatory . Date/Time Provider Initiated Documentation: 02/26/22 04:05 . Limitations to Documentation: no limitations . Information obtained by: patient . History of Present Illness 41 year old F presents to the emergency department with the chief complaint of left flank pain, described as moderate, Patient reports no radiation. Patient started experiencing this day(s) (1) and it has been constant. No relieving factors improve symptom(s), No exacerbating factors reported . Patient did receive the following treatments prior to arrival, none Related Data Home Medications Medication Instructions Recorded Confirmed pantoprazole 40 mg tablet,delayed 40 mg PO DAILY 05/11/19 02/26/22 release docusate sodium 100 mg capsule 100 mg PO DAILY PRN 08/30/19 02/26/22 sumatriptan succinate 50 mg tablet See Rx Instructions PO .COMPLEX PRN 11/27/19 02/26/22 acetaminophen 500 mg tablet 500 mg PO Q6H PRN pain #60 tabs 05/28/20 02/26/22 loratadine 10 mg capsule 10 mg PO DAILY PRN 01/21/21 02/26/22 albuterol sulfate 90 mcg/actuation 2 inh inhalation Q6H PRN 03/23/21 02/26/22 aerosol inhaler (ProAir HFA) fluticasone propionate 110 1 inh inhalation BID 03/23/21 02/26/22 mcg/actuation HFA aerosol inhaler (Flovent HFA) biotin 1 mg capsule 1 mg PO BID 10/22/21 02/26/22 divalproex 250 mg tablet,delayed 250 mg PO BID 10/22/21 02/26/22 release magnesium L-lactate 84 mg 84 mg PO DAILY 10/22/21 02/26/22 tablet,extended release (Magtab) hyreiranxguh-Iv-wdmk-minerals 18 1 tab PO DAILY 10/22/21 02/26/22 mg-0.4 mg tablet ursodiol 200 mg capsule 250 mg PO DAILY 10/22/21 02/26/22 sucralfate 100 mg/mL oral 10 ml PO BID #200 mL 12/17/21 02/26/22 suspension (Carafate) tramadol 50 mg tablet 50 mg PO Q6H PRN pain #20 tabs 02/25/22 02/26/22 ketorolac 10 mg tablet 10 mg PO TID PRN 5 days #15 tabs 02/26/22 levofloxacin 750 mg tablet 750 mg PO DAILY 6 days #6 tabs 02/26/22 Previous Rx's Medication Instructions Recorded acetaminophen 500 mg tablet 500 mg PO Q6H PRN pain #60 tabs 05/28/20 sucralfate 100 mg/mL oral 10 ml PO BID #200 mL 12/17/21 suspension (Carafate) tramadol 50 mg tablet 50 mg PO Q6H PRN pain #20 tabs 02/25/22 ketorolac 10 mg tablet 10 mg PO TID PRN 5 days #15 tabs 02/26/22 levofloxacin 750 mg tablet 750 mg PO DAILY 6 days #6 tabs 02/26/22 Allergies Allergy/AdvReac Type Severity Reaction Status Date / Time amoxicillin Allergy Severe trouble Verified 02/26/22 04:13 breathing and a rash artichoke Allergy Severe ANAPHYLAXIS Verified 02/26/22 04:13 Penicillins Allergy Intermediate HIVES Verified 02/26/22 04:13 sodium hypochlorite solution Allergy Intermediate HIVES/SOB Verified 02/26/22 04:13 [sodium hypochlorite] adhesive tape Allergy Mild Skin Rash Unverified 02/26/22 04:13 General Stated Complaint: FlankPain MIKE: 3 Review of Systems All systems reviewed & are unremarkable except as noted in HPI and below Constitutional Constitutional: Denies chills, Denies fever(s) and Denies weakness Eyes Eyes: Denies loss of vision ENT Ears, Nose, Mouth, and Throat: Denies change in voice Cardiovascular Cardiovascular: Denies chest pain and Denies dyspnea Respiratory Respiratory: Denies cough and Denies dyspnea Gastrointestinal Gastrointestinal: Denies abdominal pain and Denies vomiting Genitourinary Genitourinary: Denies dysuria Musculoskeletal Musculoskeletal: Denies joint swelling Integumentary/Breasts Skin/Breast: Denies rash Neurologic Neurologic: Denies loss of vision and Denies weakness PFSH All Active Problems (Updated 02/26/22 @ 06:08 by Dustin Blanco MD) UTI (urinary tract infection) (Acute) Anxiety and depression (Acute 02/12/14) Diabetes (Acute 02/12/14) diet controlled Elevated lipids (Acute 02/12/14) Migraine (Acute 02/12/14) Numbness of left hand (Acute 07/04/17) Tubular adenoma of colon (Acute 11/26/16) Carpal tunnel syndrome on both sides (Acute) Medial epicondylitis, left elbow (Acute) CHAPARRO (nonalcoholic steatohepatitis) (Acute) Viral illness (Acute) Migraine headache without aura (Acute) Right lateral epicondylitis (Acute) Medial epicondylitis, right elbow (Acute) Cubital tunnel syndrome on right (Acute) Right wrist sprain (Acute) Contusion of right forearm (Acute) Sprain of right elbow (Acute) Bradycardia (Acute) Vomiting (Acute) Hematemesis (Acute) Sinus bradycardia (Acute) Hypokalemia (Acute) H/O gastric bypass (Acute) Fall (Acute) Seizure disorder (Chronic) Bipolar 1 disorder (Acute) Gastric bypass status for obesity (Acute) Chest pain (Acute) Left ankle sprain (Acute) Kidney stone on left side (Acute) Medical History (Updated 02/26/22 @ 06:08 by Dustin Blanco MD) Anxiety and depression Asthma Diabetes mellitus, type 2 Elevated lipids Migraine Obstructive sleep apnea syndrome pt. states she does not have this anymore r/t to gastric bypass Polycystic ovaries Surgical History (Updated 02/25/22 @ 06:45 by Emelyn Arguelles) anterior cruciate ligament reconstruction section twice Colonoscopy - MAC (11/26/16) Cubital tunnel syndrome on left (09/14/17) 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 (Date of Surgery: 03/02/18 and 10/02/2019) EGD - MAC (11/26/16) Endoscopic Carpal Tunnel release (01/14/09) 09/16/2010 REPEAT ECTR RIGHT History of lumbar surgery Pt reports lower back disc, rods and screws 5 years ago, 2017' Ligation of fallopian tube Open Carpal Tunnel release (10/23/12) RIGHT SIDE, left 8.14.14 Vaginal hysterectomy Social History Smoking/Tobacco Use Status: Former Tobacco Use Quit Date: 08/01/05 Smoking risk assessment performed?: Yes Alcohol Intake: never Drug use: Never Substance use type: does not use Household members: spouse and children Housing: other Details: trailer Current gender identity: female What is your relationship status?: Panel score (0-1 are the most socially isolated patients): 1 Seatbelt use: always Do you feel safe at home: Yes Do you feel safe in your relationship?: Yes Exam Const General: no acute distress Orientation: alert HENMT Head: normal to inspection Ears: external ears normal General nose exam: external nose normal Mouth: moist mucous membranes Eyes General: appearance normal, both eyes and all related structures Neck Neck: normal visual inspection Resp Effort & Inspection: normal respiratory effort and able to speak in complete sentences Cardio Rate: regular rate GI Palpation: soft and nontender Back/Spine/Pelvis Back: no CVA tenderness Skin General skin exam: no rashes or lesions noted Neuro General: patient alert and patient oriented x3 Extrem General: normal to inspection Psych Mental Status: mental status grossly normal Course Vital Signs Vital signs: Vital Signs Temperature 36.1 C L 02/26/22 04:08 Pulse 52 L 02/26/22 04:08 Respiratory Rate 16 02/26/22 04:08 Blood Pressure 134/41 L 02/26/22 04:08 Pulse Oximetry 99 02/26/22 04:08 Temperature 36.1 C L 02/26/22 04:08 Temperature Source Temporal Artery Scan 02/26/22 04:08 Pulse 52 L 02/26/22 04:08 Respiratory Rate 16 02/26/22 04:08 Respiratory Effort 02/26/22 04:08 Blood Pressure 134/41 L 02/26/22 04:08 Blood Pressure Position Sitting 02/26/22 04:08 Pulse Oximetry 99 02/26/22 04:08 Oxygen Delivery Method Room Air 02/26/22 04:08 Oxygen Flow Rate 0 02/26/22 04:08 Pain Level 10 02/26/22 04:14
[2022-02-26] MEDS: Ondansetron 4 MG/2 ML VIAL IVP (04:30)
[2022-02-26] MEDS: Normal Saline Flush 10 ML SYR IVP (04:30)
[2022-02-26] MEDS: Normal Saline 1,000 ML 1000 ML IV (04:30)
--- NOTE | 2022-02-26 04:30 | DI.CT_ITS ---
Exam(s) CT RENAL COLIC WO EXAM: CT RENAL COLIC WO CLINICAL HISTORY: left flank pain. TECHNIQUE: Imaging Protocol: Axial computed tomography images with coronal and sagittal reformatted images were created and reviewed. COMPARISON: CT CT ABDOMEN PELVIS WO from 01/27/2022 FINDINGS: ABDOMEN: Lung Bases: Normal where visualized. Liver: Normal density. No measurable mass. Gallbladder and biliary tract: No radiodense calculus or biliary ductal dilation. Pancreas: Normal density, no abnormal calcifications or inflammatory process. Spleen: Normal. Kidneys: Normal size, contour and axis.Bilateral nephrolithiasis. There is a tiny amount of air in t he left renal collecting system which may reflect the patient's recent retrograde urologic procedure. No ureterolithiasis is seen. There is [id number] dilatation of the left renal collecting sys tem which may reflect a recently passed stone. Non radiopaque obstructing density in the ureter bo ot be excluded. No masses seen. Adrenal glands: No mass is seen. Lymph nodes: Within normal limits. Abdominal Aorta: Abdominal portion non-dilated. PELVIS: Bladder:Urinary bladder is incompletely distended likely accounting for the mild bladder wall thicken ing. There is a tiny focus of air likely reflecting recent surgical intervention. Bowel: No obstruction or bowel wall thickening. Appendix is unremarkable. Prior gastric bypass surge ry. Peritoneal cavity: No ascites, collection or mesenteric inflammatory response. No free air. Reproductive organs: Status post hysterectomy. Bones: Within normal limits. Postsurgical changes in the lower lumbosacral spine and the right iliac bone. Soft Tissues: Within normal limits. IMPRESSION: 1. Bilateral nephrolithiasis. 2. Mild left hydroureteronephrosis, periureteral stranding and a small focus of air in the left renal pelvis in the urinary bladder. These likely reflect the recent surgical intervention. Infection ca nnot be excluded. 3. Mild thickening of the wall of the urinary bladder. This likely is due to underdistention. Infec tion cannot be entirely excluded. Please correlate clinically. RADIATION DOSE DELIVERED: 985.86mGy.cm Total DLP DATA REPOSITORY: All CT scans at this facility are submitted to the National Radiology Data Registry (NRDR) Dose Index Registry (DIR) with the [employer] ([employer]). RADIATION OPTIMIZATION: All CT scans at this facility use at least one of these dose optimization te chniques: automated exposure control; mA and/or kV adjustment per patient size (includes targeted exa ms where dose is matched to clinical indication); or iterative reconstruction.
[2022-02-26 04:31] LABS: RBC >50 HPF (0-2)
[2022-02-26 04:32] LABS: C & S Indicated? Yes
[2022-02-26 04:33] LABS: Source Nasal/Nares
[2022-02-26 04:35] LABS: Abs Immature Grans 0.06 10^3/uL (0.0-0.06); Absolute Eosinophil Count 0.02 10^3/uL (0.0-0.7); Absolute Monocyte Count 1.33 10^3/uL (0.1-0.8); Basophils % 0.3; Eosinophils % 0.1; HCT 38.1 % (36.0-46.0); HGB 12.9 g/dL (11.2-15.7); Immature Grans % 0.3; Lymphocytes % 24.9; MCH 29.5 pg (27.0-33.0); MCHC 33.9 % (32.0-36.0); MCV 87 fL (80-95); MPV 10.6 fL (8.0-11.0); Monocytes % 7.4; Platelet Count 248 10^3/uL (130-400); RBC 4.38 10^6/uL (3.93-5.22); RDW 12.4 % (11.7-14.6); RDW-SD 39.6 fL; WBC 17.98 10^3/uL (4.4-10.8)
[2022-02-26] MEDS: Ketorolac 15 MG/ML VIAL IVP (04:35)
[2022-02-26 04:37] LABS: Absolute Basophil Count 0.05 10^3/uL (0.0-0.2); Absolute Lymphocyte Count 4.48 10^3/uL (1.2-3.4); Absolute Neutrophil Count 12.05 10^3/uL (1.2-6.7)
[2022-02-26 04:48] LABS: ALT 24 U/L (14-59); AST 10 U/L (15-37); Albumin 3.9 g/dL (3.4-5.0); Alkaline Phosphatase 74 U/L (46-116); Anion Gap 7.8 mmol/L (3-11); BUN 20 mg/dL (7-18); Bilirubin, Total 0.4 mg/dL (0.2-1.0); CO2 28.2 mmol/L (21.0-32.0); CREATININE 1.2 mg/dL (0.55-1.02); Calcium 9.3 mg/dL (8.5-10.1); Chloride 104 mmol/L (98-107); Estimated GFR 50.01 (mL/min/1.73m2); Glucose 99 mg/dL (74-106); Potassium 3.8 mmol/L (3.5-5.1); Sodium 140 mmol/L (136-145); Total Protein 7.9 g/dL (6.4-8.2)
[2022-02-26] MEDS: levoFLOXacin 750 MG/150 ML BAG 100 MG IVPB (05:01)
[2022-02-26 05:24] LABS: COVID-19 PCR Negative (Negative)
--- NOTE | 2022-02-26 07:17 | DI.VRAD_ITS ---
PROCEDURE INFORMATION: Exam: CT Abdomen And Pelvis Without Contrast Exam date and time: 02/26/2022 4:45 AM Age: 41 years old Clinical indication: Other: L flank pain; Prior surgery; Surgery date: Post-operative (0-2 days); Surgery type: Recent extraction of stone, stent removal/placement. HX of , gastric bypass, and back surgery; Patient HX: Surgery on 02/18 and 02/25. Smaller stent was placed on but came out this am. Severe pain L flank TECHNIQUE: Imaging protocol: Computed tomography of the abdomen and pelvis without contrast. Radiation optimization: All CT scans at this facility use at least one of these dose optimization techniques: automated exposure control; mA and/or kV adjustment per patient size (includes targeted exams where dose is matched to clinical indication); or iterative reconstruction. COMPARISON: 1. CT ABDOMEN PELVIS WO 01/27/2022 6:[address] ABDOMEN PELVIS W 10/18/2021 FINDINGS: Lungs: Minimal dependent atelectasis bilaterally. Liver: No discrete mass. Gallbladder and bile ducts: Distended gallbladder. No calcified stones, pericholecystic inflammatory changes or ductal dilation. Pancreas: No discrete mass. Spleen: Similar heterogeneous appearance, difficult to assess in absence of IV contrast and better evaluated on 10/18/[address] No splenomegaly. Adrenal glands: No discrete mass. Kidneys and ureters: Edematous left kidney with mild/moderate hydroureteronephrosis and perinephric/periureteral stranding. Small gas bubble in left renal collecting system superiorly. These findings are likely related to recent intervention. No obstructing stone in left ureter. Punctate nonobstructing bilateral renal calculi. No right-sided hydroureteronephrosis. Stomach and bowel: Prior gastric bypass. Probable tiny sliding-type hiatal hernia, similar to prior. No obstruction. Appendix: No evidence of appendicitis. Intraperitoneal space: No free air or ascites. Vasculature: Significantly limited assessment of the vasculature without contrast. No aneurysm. Lymph nodes: No pathologically enlarged lymph nodes. Urinary bladder: Mildly thick-walled and contains tiny nondependent air bubble. No bladder stone. Reproductive: Hysterectomy. Bones/joints: Similar degenerative changes in visualized spine and lumbosacral postsurgical changes. Lucent areas in right iliac bone again seen, likely result of harvesting of bone graft material. Soft tissues: No acute abnormality. IMPRESSION: Edematous left kidney with mild/moderate hydroureteronephrosis, perinephric/periureteral stranding and small gas bubble in renal collecting system superiorly, likely related to recent intervention. Correlate with urinalysis to exclude infection. No obstructing stone in left ureter. Punctate nonobstructing bilateral nephrolithiasis. Mildly thick-walled bladder, possibly due to underdistention. Tiny nondependent air bubble within bladder may be related to recent intervention. Correlate with urinalysis to exclude cystitis. No bladder stone. Additional findings as discussed above. Dictated and Authenticated by: Chucho Buchanan MD. Ordering:ZEB Chan MD
== END 2022-02-26 08:26 | disposition home or self-care (01) ==
PROVIDERS: Emergency Provider Emergency Medicine; PCP Nurse Practitioner Family
DX: N39.0 Urinary tract infection, site not specified (principal); J45.909 Unspecified asthma, uncomplicated; E11.9 Type 2 diabetes mellitus without complications; Z87.891 Personal history of nicotine dependence; Z87.442 Personal history of urinary calculi; Z79.51 Long term (current) use of inhaled steroids
CPT/HCPCS: 36415; 80053; 87635; 96365; 96375; 99284; 74176; 81003; 81015; 85025; 87086; J1885; J1956; J2405

== ENCOUNTER → 2022-05-18 03:05 | Outpatient (CLI) | payer MEDICAID, SELFPAY ==
--- NOTE | 2022-05-18 06:15 | DI.US_ITS ---
Exam(s) US RENAL EXAM: US RENAL CLINICAL HISTORY: r/o hydronephrosis after ureteroscopy,LT SIDED KIDNEY STONE, N20.0. TECHNIQUE: Abel scale, color and spectral Doppler were used. COMPARISON: CT CT RENAL COLIC WO from 02/26/2022 FINDINGS: Renal size in cm: Right: 12.0. Left: 10.9. Echogenicity: Normal. Hydronephrosis: No. Cyst or mass: No. Nephrolithiasis: No. Other findings: None. Bladder:The urinary bladder was not well distended on this examination. This limits evaluation. Ureteral jets: Right: Not identified on this examination. Left: Not identified on this examination. Prevoid vol:3.8 cc Postvoid vol:Not performed on this examination. Renal color flow: Symmetric and within normal limits. IMPRESSION: No evidence of hydronephrosis. DATA REPOSITORY:
== END ==
PROVIDERS: PCP Nurse Practitioner Family; Visit Provider Urology
DX: N20.0 Calculus of kidney (principal)
CPT/HCPCS: 76770

== ENCOUNTER 2022-07-05 11:45 | Emergency (ER) | payer MEDICAID, SELFPAY ==
[2022-07-05 11:51] VITALS: BP 123/48; PULSE 60; RESP 16; TEMP 36.8; O2SAT 100
[2022-07-05 12:24] VITALS: RESP 18
--- NOTE | 2022-07-05 13:38 | ED.GENADUL_ITS ---
Discharge Plan Disposition Patient Disposition: Home Condition: Good Discharge Details Clinical Impression: URI (upper respiratory infection) Primary Care Provider: Deyanira Marcus ED Provider: Selena Vu Home Meds and New Rx's Prescriptions: Continued docusate sodium 100 mg capsule 100 mg PO DAILY PRN sumatriptan succinate 50 mg tablet See Rx Instructions PO .COMPLEX PRN Rx Instructions: take 1 tab at onset of headache; if no relief may repeat 1 tab after at least 2 hrs; max = 4 tabs/24 hr PO albuterol sulfate [ProAir HFA] 90 mcg/actuation HFA aerosol inhaler 2 inh inhalation Q6H PRN fluticasone propionate [Flovent HFA] 110 mcg/actuation HFA aerosol inhaler 1 inh inhalation BID ursodiol 200 mg capsule 250 mg PO DAILY magnesium L-lactate [Magtab] 84 mg tablet extended release 84 mg PO DAILY biotin 1 mg capsule 1 mg PO BID divalproex 250 mg tablet,delayed release (DR/EC) 250 mg PO BID rnthtrnegrta-Og-vego-minerals 18-0.4 mg tablet 1 tab PO DAILY pantoprazole 40 mg Tablet,Delayed Release (Dr/Ec) 40 mg PO DAILY loratadine 10 mg capsule 10 mg PO DAILY PRN sucralfate [Carafate] 100 mg/mL suspension 10 ml PO BID Qty: 200 1RF acetaminophen 500 mg tablet 500 mg PO Q6H PRN (Reason: pain) Qty: 60 0RF tramadol 50 mg tablet 50 mg PO Q6H MDD 4 PRN (Reason: pain) Qty: 20 0RF Rx Instructions: may take along with Tylenol Discharge Instructions Instructions: Upper Respiratory Infection (ED) Additional Instructions: Exam here is reassuring. Likely viral illness. With your daughter being sick with the flu, this could potentially be the cause. Please continue to quarantine until your COVID test has returned. Hydration. Tylenol and ibuprofen as needed for discomfort. If you develop shortness of breath, chest pain, difficulty breathing, inability stay hydrated or other new/worsening symptom please seek care urgently once again. Otherwise, please follow-up with primary care in 1 to 2 weeks for reevaluation. Stand Alone Forms: Work Release Discharge Data Discharge Date/Time-TO BE ENTERED AT DEPARTURE: 07/05/22 14:04 Medical Decision Making Patient is a 42-year-old female presents today with chief complaint of cough, congestion, sore throat x3 days. She reports that initially she had vomited x1. However, he associates this with some bad food. She denies any fevers or chills. States that her daughter was recently diagnosed with flu. No recent travel. Denies any shortness of breath or chest pain. On exam, patient appears nontoxic. But hemodynamically stable. Lungs are clear, normal cardiac exam. Normal HEENT exam. No lower extremity edema. Advised likely viral illness. In particular, given her recent exposure concern for potential flu. Patient has been hydrating well, I do not see need for emergent intervention at this time. Offered reassurance and discussed supportive care. Return precautions were discussed. We will send out COVID-19 testing. She does work in healthcare setting. All of her questions and concerns were addressed and she is in agreement this plan. Sign Out No HPI General Date/Time Provider Initiated Documentation: 07/05/22 13:37 . Limitations to Documentation: no limitations . Information obtained by: patient and RN notes reviewed . History of Present Illness 42 year old F presents to the emergency department with the chief complaint of cough, congestion, sore throat, described as moderate, Patient started experiencing this day(s) (3) and it has been constant. No relieving factors improve symptom(s), No exacerbating factors reported . Patient notes cough, fever/chills, loss of appetite, malaise and nausea/vomiting; denies chest pain, headaches, rash, shortness of breath and weakness. Patient did receive the following treatments prior to arrival, none Related Data Home Medications Medication Instructions Recorded Confirmed pantoprazole 40 mg tablet,delayed 40 mg PO DAILY 05/11/19 07/05/22 release docusate sodium 100 mg capsule 100 mg PO DAILY PRN 08/30/19 07/05/22 sumatriptan succinate 50 mg tablet See Rx Instructions PO .COMPLEX PRN 11/27/19 07/05/22 acetaminophen 500 mg tablet 500 mg PO Q6H PRN pain #60 tabs 05/28/20 07/05/22 loratadine 10 mg capsule 10 mg PO DAILY PRN 01/21/21 07/05/22 albuterol sulfate 90 mcg/actuation 2 inh inhalation Q6H PRN 03/23/21 07/05/22 aerosol inhaler (ProAir HFA) fluticasone propionate 110 1 inh inhalation BID 03/23/21 07/05/22 mcg/actuation HFA aerosol inhaler (Flovent HFA) biotin 1 mg capsule 1 mg PO BID 10/22/21 07/05/22 divalproex 250 mg tablet,delayed 250 mg PO BID 10/22/21 07/05/22 release magnesium L-lactate 84 mg 84 mg PO DAILY 10/22/21 07/05/22 tablet,extended release (Magtab) yewwbycpccib-Wl-lfqw-minerals 18 1 tab PO DAILY 10/22/21 07/05/22 mg-0.4 mg tablet ursodiol 200 mg capsule 250 mg PO DAILY 10/22/21 07/05/22 sucralfate 100 mg/mL oral 10 ml PO BID #200 mL 12/17/21 07/05/22 suspension (Carafate) tramadol 50 mg tablet 50 mg PO Q6H PRN pain #20 tabs 02/25/22 07/05/22 Previous Rx's Medication Instructions Recorded acetaminophen 500 mg tablet 500 mg PO Q6H PRN pain #60 tabs 05/28/20 sucralfate 100 mg/mL oral 10 ml PO BID #200 mL 12/17/21 suspension (Carafate) tramadol 50 mg tablet 50 mg PO Q6H PRN pain #20 tabs 02/25/22 Allergies Allergy/AdvReac Type Severity Reaction Status Date / Time amoxicillin Allergy Severe trouble Verified 07/05/22 11:53 breathing and a rash artichoke Allergy Severe ANAPHYLAXIS Verified 07/05/22 11:53 Penicillins Allergy Intermediate HIVES Verified 07/05/22 11:53 sodium hypochlorite solution Allergy Intermediate HIVES/SOB Verified 07/05/22 11:53 [sodium hypochlorite] adhesive tape Allergy Mild Skin Rash Unverified 07/05/22 11:53 General Stated Complaint: GenMedical MIKE: 4 Review of Systems Constitutional Constitutional: Reports as per HPI and Denies headache(s) Eyes Eyes: Reports as per HPI, Denies eye discharge and Denies irritation ENT Ears, Nose, Mouth, and Throat: Reports as per HPI and Denies headache(s) Cardiovascular Cardiovascular: Reports as per HPI, Denies chest pain and Denies dyspnea Respiratory Respiratory: Reports as per HPI and Denies dyspnea Gastrointestinal Gastrointestinal: Reports as per HPI, Denies abdominal pain and Denies change in bowel habits Integumentary/Breasts Skin/Breast: Reports as per HPI and Denies rash Neurologic Neurologic: Reports as per HPI and Denies headache(s) PFSH All Active Problems (Updated 07/05/22 @ 13:55 by MELECIO Kunz) URI (upper respiratory infection) (Acute) Psychogenic nonepileptic seizure (Acute) Screening for colon cancer (Acute) Bilateral kidney stones (Acute) Arm paresthesia, right (Acute) Anxiety and depression (Acute 02/12/14) Diabetes (Acute 02/12/14) diet controlled Elevated lipids (Acute 02/12/14) Migraine (Acute 02/12/14) Numbness of left hand (Acute 07/04/17) Tubular adenoma of colon (Acute 11/26/16) Carpal tunnel syndrome on both sides (Acute) Medial epicondylitis, left elbow (Acute) CHAPARRO (nonalcoholic steatohepatitis) (Acute) Viral illness (Acute) Migraine headache without aura (Acute) Right lateral epicondylitis (Acute) Medial epicondylitis, right elbow (Acute) Cubital tunnel syndrome on right (Acute) Right wrist sprain (Acute) Contusion of right forearm (Acute) Sprain of right elbow (Acute) Bradycardia (Acute) Vomiting (Acute) Hematemesis (Acute) Sinus bradycardia (Acute) Hypokalemia (Acute) Fall (Acute) Seizure disorder (Chronic) Bipolar 1 disorder (Acute) Gastric bypass status for obesity (Acute) Chest pain (Acute) Left ankle sprain (Acute) Medical History (Updated 07/05/22 @ 13:55 by MELECIO Kunz) Adrenal abnormality Anxiety and depression Asthma Cervical cancer Chronic back pain Diabetes mellitus, type 2 Elevated lipids GERD (gastroesophageal reflux disease) Kidney stone Migraine Obstructive sleep apnea syndrome pt. states she does not have this anymore r/t to gastric bypass Polycystic ovaries Surgical History (Updated 06/07/22 @ 06:37 by Lexus Dunn RN) anterior cruciate ligament reconstruction section twice Colonoscopy - MAC (11/26/16) Cubital tunnel syndrome on left (09/14/17) 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 (Date of Surgery: 03/02/18 and 10/02/2019) EGD - MAC (11/26/16) Endoscopic Carpal Tunnel release (01/14/09) 09/16/2010 REPEAT ECTR RIGHT H/O gastric bypass History of lumbar surgery Pt reports lower back disc, rods and screws 5 years ago, 2017' Ligation of fallopian tube Open Carpal Tunnel release (10/23/12) RIGHT SIDE, left 8.14.14 Vaginal hysterectomy Social History Smoking/Tobacco Use Status: Former Tobacco Use Quit Date: 08/01/05 Smoking risk assessment performed?: Yes Alcohol Intake: never Drug use: Never Substance use type: does not use Household members: spouse and children Housing: other Details: trailer Current gender identity: female What is your relationship status?: Panel score (0-1 are the most socially isolated patients): 1 Seatbelt use: always Do you feel safe at home: Yes Do you feel safe in your relationship?: Yes Exam Const General: cooperative, healthy appearing, comfortable, no acute distress, well developed and well groomed Nutritional Appearance: well nourished and obese Orientation: alert and awake [facility] Head: normal to inspection, normocephalic and atraumatic Ears: hearing grossly normal bilaterally, external ears normal and TM's normal bilaterally General nose exam: external nose normal and nares normal Face and sinus: normal facial exam, sinuses nontender and face symmetric Mouth: oral mucosae normal, lip normal, tongue normal, oropharynx normal and moist mucous membranes Teeth and gingiva: dentition normal Throat: posterior oropharynx normal, tonsils normal and uvula midline Eyes General: appearance normal, both eyes and all related structures Neck Neck: normal visual inspection, full ROM, no lymphadenopathy and no meningeal signs Resp Effort & Inspection: normal respiratory effort, able to speak in complete sentences and no respiratory distress Auscultation: clear to auscultation bilaterally, no rales, no rhonchi and no wheezes Cardio Rate: regular rate Rhythm: regular rhythm Heart Sounds: S1 normal and S2 normal Skin General skin exam: no rashes or lesions noted Neuro General: patient alert and patient awake Cognition: normal cognition Speech: speech normal Gait: normal gait Psych Appearance: grossly normal and well kempt Mental Status: mental status grossly normal Speech and Movement: speech and movement normal Course Vital Signs Vital signs: Vital Signs Temperature 36.8 C 07/05/22 11:51 Pulse 60 07/05/22 11:51 Respiratory Rate 16 07/05/22 11:51 Blood Pressure 123/48 L 07/05/22 11:51 Pulse Oximetry 100 07/05/22 11:51 Temperature 36.8 C 07/05/22 11:51 Temperature Source Temporal Artery Scan 07/05/22 11:51 Pulse 60 07/05/22 11:51 Respiratory Rate 18 07/05/22 12:24 Respiratory Effort Non-Labored 07/05/22 12:24 Respiratory Depth Normal 07/05/22 12:24 Respiratory Pattern Normal 07/05/22 12:24 Blood Pressure 123/48 L 07/05/22 11:51 Blood Pressure Position Sitting 07/05/22 11:51 Pulse Oximetry 100 07/05/22 11:51 Oxygen Delivery Method Room Air 07/05/22 11:51 Oxygen Flow Rate 0 07/05/22 11:51 Lab/Test Results Lab/Test Results: 07/05/22 11:59 Pharynx Group A Streptococcus Culture - Pending POC Strep Test-RAMON(Rapid) Start: 07/05/22 12 :04 Freq: Status: Active Protocol: Document 07/05/22 12:04 TYSON (Rec: 07/05/22 12:05 TYSON [id number]) Strep test-RAMON(Rapid)-POC POC-Strep test-RAMON (Rapid) Negative POC-Strep test-RAMON (Rapid) Negative
[2022-07-07 16:52] LABS: COVID-19 RT-PCR UVMMC Result Negative (Negative)
== END 2022-07-05 14:04 | disposition home or self-care (01) ==
PROVIDERS: Emergency Provider Physician Assistant; PCP Nurse Practitioner Family
DX: J06.9 Acute upper respiratory infection, unspecified (principal)
CPT/HCPCS: 87880; 99282; U0003; 87081

== ENCOUNTER 2022-08-30 20:22 | Emergency (ER) | payer MEDICAID, SELFPAY ==
--- NOTE | 2022-08-30 20:30 | DI.RAD_ITS ---
Exam(s) XR SACRUM COCCYX EXAM: XR SACRUM COCCYX CLINICAL HISTORY: fall, pain. TECHNIQUE: 2D digital imaging was performed. Three images were obtained. COMPARISON: No exams were available for comparison FINDINGS: BONES: No acute fracture is present. No bony destructive lesion is seen. Postsurgical changes at the lumbosacral junction. JOINTS: No dislocation present. Sacroiliac joints are intact. SOFT TISSUE: Normal. IMPRESSION: No acute fracture. DATA REPOSITORY: RADIATION DOSE DELIVERED:
[2022-08-30 20:37] VITALS: BP 120/65; PULSE 84; RESP 22; TEMP 36.6; O2SAT 97
--- NOTE | 2022-08-30 21:28 | DI.VRAD_ITS ---
PROCEDURE INFORMATION: Exam: XR Sacrum and Coccyx, 2 or More Views Exam date and time: 08/30/2022 9:08 PM Age: 42 years old Clinical indication: Injury or trauma; Blunt trauma (contusions or hematomas); Injury details: Fall, pain; Prior surgery; Surgery date: 6+ months; Surgery type: Sacrum surgery 5yrs ago TECHNIQUE: Imaging protocol: XR of the sacrum and coccyx, 2 or more views. COMPARISON: CT RENAL COLIC WO 02/26/2022 4:45 AM FINDINGS: Bones/joints: Posterior spinal rods and transpedicular screws at L5-S1 grossly intact. Intervertebral disc replacement noted. The visualized sacrum is grossly intact. No acute fracture. Soft tissues: Normal. IMPRESSION: No acute findings. Dictated and Authenticated by: Keenan Cullen MD. Ordering:SHAHNAZ Oseguera MD
--- NOTE | 2022-08-30 21:34 | W.ED.GENAD ---
Discharge Plan Disposition Patient Disposition: Home Condition: Improving Discharge Details Clinical Impression: Coccyx sprain, Contusion of coccyx Primary Care Provider: Deyanira Marcus ED Provider: Oumar Wong Home Meds and New Rx's Prescriptions: Continued docusate sodium 100 mg capsule 100 mg PO DAILY PRN sumatriptan succinate 50 mg tablet See Rx Instructions PO .COMPLEX PRN Rx Instructions: take 1 tab at onset of headache; if no relief may repeat 1 tab after at least 2 hrs; max = 4 tabs/24 hr PO albuterol sulfate [ProAir HFA] 90 mcg/actuation HFA aerosol inhaler 2 inh inhalation Q6H PRN fluticasone propionate [Flovent HFA] 110 mcg/actuation HFA aerosol inhaler 1 inh inhalation BID ursodiol 200 mg capsule 250 mg PO DAILY magnesium L-lactate [Magtab] 84 mg tablet extended release 84 mg PO DAILY biotin 1 mg capsule 1 mg PO BID divalproex 250 mg tablet,delayed release (DR/EC) 250 mg PO BID onjwrbxmxpwu-Cc-zwcx-minerals 18-0.4 mg tablet 1 tab PO DAILY pantoprazole 40 mg Tablet,Delayed Release (Dr/Ec) 40 mg PO DAILY loratadine 10 mg capsule 10 mg PO DAILY PRN sucralfate [Carafate] 100 mg/mL suspension 10 ml PO BID Qty: 200 1RF acetaminophen 500 mg tablet 500 mg PO Q6H PRN (Reason: pain) Qty: 60 0RF tramadol 50 mg tablet 50 mg PO Q6H MDD 4 PRN (Reason: pain) Qty: 20 0RF Rx Instructions: may take along with Tylenol Discharge Instructions Instructions: Contusion in Adults (ED), Coccyx Injury (ED) Additional Instructions: Use an inflatable pillow as we discussed in which you have available at home. May use the provided Vicodin with hydrocodone as needed for severe or breakthrough pain. This medication contains Tylenol and you should not take extra Tylenol. Continue routine medications. You may develop some bruising in the area. Your x-ray showed your L5-S1 fixation to be intact. Return for any acute concerns Medical Decision Making 42-year-old female presents with slip and fall onto her bottom, resultant coccyx pain. No motor weakness or numbness. She does have spinal rods and transpedicular screws at L5-S1. She was referred for x-ray which shows her hardware to be intact, no bony 3. Discussed with her this is consistent with bony contusion. She has an inflatable pillow she may use to ease pressure on the area. She is stable and appropriate for discharge to home. HPI General Mode of arrival: ambulatory. Date/Time Provider Initiated Documentation: 08/30/22 20:37. Limitations to Documentation: no limitations. Information obtained by: patient. History of Present Illness 42 year old F presents to the emergency department with the chief complaint of Fall and tailbone pain, described as moderate, Quality is described as dull, and is localized to the back. Patient reports no radiation. Patient started experiencing this hour(s) and it has been constant. No relieving factors improve symptom(s), No exacerbating factors reported . Patient notes denies fever/chills. Patient did receive the following treatments prior to arrival, none Related Data Home Medications Medication Instructions Recorded Confirmed pantoprazole 40 mg tablet,delayed 40 mg PO DAILY 05/11/19 07/05/22 release docusate sodium 100 mg capsule 100 mg PO DAILY PRN 08/30/19 07/05/22 sumatriptan succinate 50 mg tablet See Rx Instructions PO .COMPLEX PRN 11/27/19 07/05/22 acetaminophen 500 mg tablet 500 mg PO Q6H PRN pain #60 tabs 05/28/20 07/05/22 loratadine 10 mg capsule 10 mg PO DAILY PRN 01/21/21 07/05/22 albuterol sulfate 90 mcg/actuation 2 inh inhalation Q6H PRN 03/23/21 07/05/22 aerosol inhaler (ProAir HFA) fluticasone propionate 110 1 inh inhalation BID 03/23/21 07/05/22 mcg/actuation HFA aerosol inhaler (Flovent HFA) biotin 1 mg capsule 1 mg PO BID 10/22/21 07/05/22 divalproex 250 mg tablet,delayed 250 mg PO BID 10/22/21 07/05/22 release magnesium L-lactate 84 mg 84 mg PO DAILY 10/22/21 07/05/22 tablet,extended release (Magtab) asjzhqyzmhlg-Xv-nvvi-minerals 18 1 tab PO DAILY 10/22/21 07/05/22 mg-0.4 mg tablet ursodiol 200 mg capsule 250 mg PO DAILY 10/22/21 07/05/22 sucralfate 100 mg/mL oral 10 ml PO BID #200 mL 12/17/21 07/05/22 suspension (Carafate) tramadol 50 mg tablet 50 mg PO Q6H PRN pain #20 tabs 02/25/22 07/05/22 Previous Rx's Medication Instructions Recorded acetaminophen 500 mg tablet 500 mg PO Q6H PRN pain #60 tabs 05/28/20 sucralfate 100 mg/mL oral 10 ml PO BID #200 mL 12/17/21 suspension (Carafate) tramadol 50 mg tablet 50 mg PO Q6H PRN pain #20 tabs 02/25/22 Allergies Allergy/AdvReac Type Severity Reaction Status Date / Time amoxicillin Allergy Severe trouble Verified 07/05/22 11:53 breathing and a rash artichoke Allergy Severe ANAPHYLAXIS Verified 07/05/22 11:53 Penicillins Allergy Intermediate HIVES Verified 07/05/22 11:53 sodium hypochlorite solution Allergy Intermediate HIVES/SOB Verified 07/05/22 11:53 [sodium hypochlorite] adhesive tape Allergy Mild Skin Rash Unverified 07/05/22 11:53 General Stated Complaint: Fall/Non TraumaCriteria MIKE: 3 Review of Systems Narrative: No lower extremity weakness or tingling. No other injury. 4 systems were reviewed [facility] All Active Problems (Updated 08/30/22 @ 21:37 by Oumar Wong MD) Coccyx sprain (Acute) Contusion of coccyx (Acute) Psychogenic nonepileptic seizure (Acute) Screening for colon cancer (Acute) Bilateral kidney stones (Acute) Arm paresthesia, right (Acute) Anxiety and depression (Acute 02/12/14) Diabetes (Acute 02/12/14) diet controlled Elevated lipids (Acute 02/12/14) Migraine (Acute 02/12/14) Numbness of left hand (Acute 07/04/17) Tubular adenoma of colon (Acute 11/26/16) Carpal tunnel syndrome on both sides (Acute) Medial epicondylitis, left elbow (Acute) CHAPARRO (nonalcoholic steatohepatitis) (Acute) Viral illness (Acute) Migraine headache without aura (Acute) Right lateral epicondylitis (Acute) Medial epicondylitis, right elbow (Acute) Cubital tunnel syndrome on right (Acute) Right wrist sprain (Acute) Contusion of right forearm (Acute) Sprain of right elbow (Acute) Bradycardia (Acute) Vomiting (Acute) Hematemesis (Acute) Sinus bradycardia (Acute) Hypokalemia (Acute) Fall (Acute) Seizure disorder (Chronic) Bipolar 1 disorder (Acute) Gastric bypass status for obesity (Acute) Chest pain (Acute) Left ankle sprain (Acute) Medical History Adrenal abnormality Anxiety and depression Asthma Cervical cancer Chronic back pain Diabetes mellitus, type 2 Elevated lipids GERD (gastroesophageal reflux disease) Kidney stone Migraine Obstructive sleep apnea syndrome pt. states she does not have this anymore r/t to gastric bypass Polycystic ovaries Surgical History anterior cruciate ligament reconstruction section twice Colonoscopy - MAC (11/26/16) Cubital tunnel syndrome on left (09/14/17) 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 (Date of Surgery: 03/02/18 and 10/02/2019) EGD - MAC (11/26/16) Endoscopic Carpal Tunnel release (01/14/09) 09/16/2010 REPEAT ECTR RIGHT H/O gastric bypass History of lumbar surgery Pt reports lower back disc, rods and screws 5 years ago, 2017' Ligation of fallopian tube Open Carpal Tunnel release (10/23/12) RIGHT SIDE, left 8.14.14 Vaginal hysterectomy Social History Smoking/Tobacco Use Status: Former Tobacco Use Quit Date: 08/01/05 Smoking risk assessment performed?: Yes Alcohol Intake: never Drug use: Never Substance use type: does not use Household members: spouse and children Housing: other Details: trailer Current gender identity: female What is your relationship status?: Panel score (0-1 are the most socially isolated patients): 1 Seatbelt use: always Do you feel safe at home: Yes Do you feel safe in your relationship?: Yes Exam Narrative Exam Narrative: GEN: awake, alert, oriented 3. Pleasant, well groomed, interactive. HEAD: Normocephalic, atraumatic EYES: PERRL, EOMI NECK: Full ROM, no CARLI, no menigismus CHEST/RESP: No respiratory distress Back: Tender in the coccyx, no lumbar tenderness. EXT: Full ROM, no edema, no rash Neuro: Grossly normal neurologic exam, conversant, interactive. Psych: Speech fluent, thoughts congruent, affect normal Course Vital Signs Vital signs: Vital Signs Temperature 36.6 C 08/30/22 20:37 Pulse 84 08/30/22 20:37 Respiratory Rate 22 08/30/22 20:37 Blood Pressure 120/65 08/30/22 20:37 Pulse Oximetry 97 08/30/22 20:37 Temperature 36.6 C 08/30/22 20:37 Temperature Source Tympanic 08/30/22 20:37 Pulse 84 08/30/22 20:37 Respiratory Rate 22 08/30/22 20:37 Respiratory Effort 08/30/22 21:17 Blood Pressure 120/65 08/30/22 20:37 Blood Pressure Position Sitting 08/30/22 20:37 Pulse Oximetry 97 08/30/22 20:37 Oxygen Delivery Method Room Air 08/30/22 20:37 Oxygen Flow Rate 0 08/30/22 20:37 Pain Level 9 08/30/22 21:18
[2022-08-30 21:58] VITALS: BP 123/80; PULSE 75; RESP 20; TEMP 36.8; O2SAT 95
== END 2022-08-30 22:09 | disposition home or self-care (01) ==
PROVIDERS: Emergency Provider Emergency Medicine; PCP Nurse Practitioner Family
DX: S33.8XXA Sprain of other parts of lumbar spine and pelvis, initial encounter (principal); W01.0XXA Fall on same level from slipping, tripping and stumbling without subsequent striking against object, initial encounter; E11.9 Type 2 diabetes mellitus without complications; J45.909 Unspecified asthma, uncomplicated
CPT/HCPCS: 99283; 72220; 99284

== ENCOUNTER 2022-09-12 22:38 | Emergency (ER) | payer MEDICAID, SELFPAY ==
[2022-09-12 22:53] VITALS: BP 126/69; PULSE 83; RESP 18; TEMP 36.7; O2SAT 98
--- NOTE | 2022-09-13 00:34 | W.ED.GENAD ---
Discharge Plan Disposition Patient Disposition: Home Condition: Stable Discharge Details Clinical Impression: Migraine headache without aura Primary Care Provider: Deyanira Marcus ED Provider: Dustin Blanco Home Meds and New Rx's Prescriptions: Continued docusate sodium 100 mg capsule 100 mg PO DAILY PRN sumatriptan succinate 50 mg tablet See Rx Instructions PO .COMPLEX PRN Rx Instructions: take 1 tab at onset of headache; if no relief may repeat 1 tab after at least 2 hrs; max = 4 tabs/24 hr PO albuterol sulfate [ProAir HFA] 90 mcg/actuation HFA aerosol inhaler 2 inh inhalation Q6H PRN fluticasone propionate [Flovent HFA] 110 mcg/actuation HFA aerosol inhaler 1 inh inhalation BID ursodiol 200 mg capsule 250 mg PO DAILY magnesium L-lactate [Magtab] 84 mg tablet extended release 84 mg PO DAILY biotin 1 mg capsule 1 mg PO BID divalproex 250 mg tablet,delayed release (DR/EC) 250 mg PO BID voiykfpjsnyy-Sy-yshz-minerals 18-0.4 mg tablet 1 tab PO DAILY pantoprazole 40 mg Tablet,Delayed Release (Dr/Ec) 40 mg PO DAILY loratadine 10 mg capsule 10 mg PO DAILY PRN sucralfate [Carafate] 100 mg/mL suspension 10 ml PO BID Qty: 200 1RF acetaminophen 500 mg tablet 500 mg PO Q6H PRN (Reason: pain) Qty: 60 0RF tramadol 50 mg tablet 50 mg PO Q6H MDD 4 PRN (Reason: pain) Qty: 20 0RF Rx Instructions: may take along with Tylenol Discharge Instructions Instructions: Migraine Headache (ED) Additional Instructions: follow up with your primary care provider within 1 week if symptoms continue if you feel more ill, have severe worsening pain, high fevers or persistnt vomiting return to the emergency department Medical Decision Making 42 yo female with hx of migraine headaches, prior hysterectomy, comes in with 2 days of what she describes as a migraine headache and intermittent n/v. She denies fevers, chills, chest pain, dyspnea, abdominal pain. She states this feels like prior migraines, started slowly worsening 2 days ago and is not the worst of her life. She arrives stable ambulating with normal gait, caox4. She has no focal motor or sensation deficits on exam, clear speech, CN II-XII intact. Clear lungs, no murmurs, soft nontender abdomen. No neck stiffness or meningismus. Suspect this is a migraine based on presentation and her history, will treat with toradol and compazine and reassess. No findings on exam to suggest boiler coverer helper infection and not the worst headache of her life nor thunderclap in description so doubt SAH or other intracranial hemorrhage. pt resting comfortably and states pain has resolved and requests d/c. Still has reassuring exam. Given rapid improvement with toradol and compazine suspect migraine. Advised to f/u with pcp, return precautions given Differential Diagnosis Differential Diagnosis: migraine, tension headache Medical Records Medical records reviewed: Yes I reviewed the patient's medical records. HPI General Mode of arrival: ambulatory. Date/Time Provider Initiated Documentation: 09/12/22 22:46. Limitations to Documentation: no limitations. Information obtained by: patient. History of Present Illness 42 year old F presents to the emergency department with the chief complaint of migraine, described as moderate, Quality is described as aching, Patient started experiencing this day(s) (2) and it has been constant. No relieving factors improve symptom(s), No exacerbating factors reported . Patient notes nausea/vomiting. Patient did receive the following treatments prior to arrival, none Related Data Home Medications Medication Instructions Recorded Confirmed pantoprazole 40 mg tablet,delayed 40 mg PO DAILY 05/11/19 07/05/22 release docusate sodium 100 mg capsule 100 mg PO DAILY PRN 08/30/19 07/05/22 sumatriptan succinate 50 mg tablet See Rx Instructions PO .COMPLEX PRN 11/27/19 07/05/22 acetaminophen 500 mg tablet 500 mg PO Q6H PRN pain #60 tabs 05/28/20 07/05/22 loratadine 10 mg capsule 10 mg PO DAILY PRN 01/21/21 07/05/22 albuterol sulfate 90 mcg/actuation 2 inh inhalation Q6H PRN 03/23/21 07/05/22 aerosol inhaler (ProAir HFA) fluticasone propionate 110 1 inh inhalation BID 03/23/21 07/05/22 mcg/actuation HFA aerosol inhaler (Flovent HFA) biotin 1 mg capsule 1 mg PO BID 10/22/21 07/05/22 divalproex 250 mg tablet,delayed 250 mg PO BID 10/22/21 07/05/22 release magnesium L-lactate 84 mg 84 mg PO DAILY 10/22/21 07/05/22 tablet,extended release (Magtab) bmvpiisnutby-Mk-hchr-minerals 18 1 tab PO DAILY 10/22/21 07/05/22 mg-0.4 mg tablet ursodiol 200 mg capsule 250 mg PO DAILY 10/22/21 07/05/22 sucralfate 100 mg/mL oral 10 ml PO BID #200 mL 12/17/21 07/05/22 suspension (Carafate) tramadol 50 mg tablet 50 mg PO Q6H PRN pain #20 tabs 02/25/22 07/05/22 Previous Rx's Medication Instructions Recorded acetaminophen 500 mg tablet 500 mg PO Q6H PRN pain #60 tabs 05/28/20 sucralfate 100 mg/mL oral 10 ml PO BID #200 mL 12/17/21 suspension (Carafate) tramadol 50 mg tablet 50 mg PO Q6H PRN pain #20 tabs 02/25/22 Allergies Allergy/AdvReac Type Severity Reaction Status Date / Time amoxicillin Allergy Severe trouble Verified 07/05/22 11:53 breathing and a rash artichoke Allergy Severe ANAPHYLAXIS Verified 07/05/22 11:53 Penicillins Allergy Intermediate HIVES Verified 07/05/22 11:53 sodium hypochlorite solution Allergy Intermediate HIVES/SOB Verified 07/05/22 11:53 [sodium hypochlorite] adhesive tape Allergy Mild Skin Rash Unverified 07/05/22 11:53 General Stated Complaint: GenMedical MIKE: 3 Review of Systems All systems reviewed & are unremarkable except as noted in HPI and below Constitutional Constitutional: Denies chills and Denies fever(s) Cardiovascular Cardiovascular: Denies chest pain and Denies dyspnea Respiratory Respiratory: Denies cough and Denies dyspnea Gastrointestinal Gastrointestinal: Denies abdominal pain Genitourinary Genitourinary: Denies dysuria Integumentary/Breasts Skin/Breast: Denies rash PFSH All Active Problems (Updated 09/13/22 @ 00:49 by Dustin Blanco MD) Coccyx sprain (Acute) Contusion of coccyx (Acute) Psychogenic nonepileptic seizure (Acute) Screening for colon cancer (Acute) Bilateral kidney stones (Acute) Arm paresthesia, right (Acute) Anxiety and depression (Acute 02/12/14) Diabetes (Acute 02/12/14) diet controlled Elevated lipids (Acute 02/12/14) Migraine (Acute 02/12/14) Numbness of left hand (Acute 07/04/17) Tubular adenoma of colon (Acute 11/26/16) Carpal tunnel syndrome on both sides (Acute) Medial epicondylitis, left elbow (Acute) CHAPARRO (nonalcoholic steatohepatitis) (Acute) Viral illness (Acute) Migraine headache without aura (Acute) Right lateral epicondylitis (Acute) Medial epicondylitis, right elbow (Acute) Cubital tunnel syndrome on right (Acute) Right wrist sprain (Acute) Contusion of right forearm (Acute) Sprain of right elbow (Acute) Bradycardia (Acute) Vomiting (Acute) Hematemesis (Acute) Sinus bradycardia (Acute) Hypokalemia (Acute) Fall (Acute) Seizure disorder (Chronic) Bipolar 1 disorder (Acute) Gastric bypass status for obesity (Acute) Chest pain (Acute) Left ankle sprain (Acute) Medical History Adrenal abnormality Anxiety and depression Asthma Cervical cancer Chronic back pain Diabetes mellitus, type 2 Elevated lipids GERD (gastroesophageal reflux disease) Kidney stone Migraine Obstructive sleep apnea syndrome pt. states she does not have this anymore r/t to gastric bypass Polycystic ovaries Surgical History anterior cruciate ligament reconstruction section twice Colonoscopy - MAC (11/26/16) Cubital tunnel syndrome on left (09/14/17) 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 (Date of Surgery: 03/02/18 and 10/02/2019) EGD - MAC (11/26/16) Endoscopic Carpal Tunnel release (01/14/09) 09/16/2010 REPEAT ECTR RIGHT H/O gastric bypass History of lumbar surgery Pt reports lower back disc, rods and screws 5 years ago, 2017' Ligation of fallopian tube Open Carpal Tunnel release (10/23/12) RIGHT SIDE, left 8.14.14 Vaginal hysterectomy Social History Smoking/Tobacco Use Status: Former Tobacco Use Quit Date: 08/01/05 Smoking risk assessment performed?: Yes Alcohol Intake: never Drug use: Never Substance use type: does not use Household members: spouse and children Housing: other Details: trailer Current gender identity: female What is your relationship status?: Panel score (0-1 are the most socially isolated patients): 1 Seatbelt use: always Do you feel safe at home: Yes Do you feel safe in your relationship?: Yes Exam Const General: no acute distress Orientation: alert HENMT Head: normal to inspection Ears: external ears normal General nose exam: external nose normal Mouth: moist mucous membranes Eyes General: appearance normal, both eyes and all related structures Neck Neck: normal visual inspection Resp Effort & Inspection: normal respiratory effort and able to speak in complete sentences Cardio Rate: regular rate Skin General skin exam: no rashes or lesions noted Neuro General: patient alert, patient oriented x3 and gait normal Cranial Nerves: CN's II-XI intact bilaterally, PERRL and EOM intact bilaterally Cognition: normal cognition Speech: speech normal Gait: normal gait Motor: muscle tone normal throughout Sensory Exam: no sensory deficits noted Extrem General: normal to inspection Psych Mental Status: mental status grossly normal Course Vital Signs Vital signs: Vital Signs Temperature 36.7 C 09/12/22 22:53 Pulse 83 09/12/22 22:53 Respiratory Rate 18 09/12/22 22:53 Blood Pressure 126/69 09/12/22 22:53 Pulse Oximetry 98 09/12/22 22:53 Temperature 36.7 C 09/12/22 22:53 Temperature Source Oral 09/12/22 22:53 Pulse 83 09/12/22 22:53 Respiratory Rate 18 09/12/22 22:53 Respiratory Effort Normal, Non-Labored 09/12/22 22:57 Respiratory Depth Normal 09/12/22 22:57 Respiratory Pattern Normal 09/12/22 22:57 Blood Pressure 126/69 09/12/22 22:53 Blood Pressure Position Sitting 09/12/22 22:53 Pulse Oximetry 98 09/12/22 22:53 Oxygen Delivery Method Room Air 09/12/22 22:53 Oxygen Flow Rate 0 09/12/22 22:53 Pain Level 8 09/12/22 22:53
[2022-09-13] MEDS: Ketorolac 15 MG/ML VIAL IVP (00:50)
[2022-09-13] MEDS: Normal Saline 1,000 ML 1000 ML IV (00:52)
[2022-09-13] MEDS: Prochlorperazine 10 MG/2 ML VIAL IVP (00:52)
[2022-09-13 01:49] VITALS: BP 115/57; PULSE 64; RESP 16; TEMP 37.1; O2SAT 96
== END 2022-09-13 01:51 | disposition home or self-care (01) ==
PROVIDERS: Emergency Provider Emergency Medicine; PCP Nurse Practitioner Family
DX: G43.909 Migraine, unspecified, not intractable, without status migrainosus (principal); J45.909 Unspecified asthma, uncomplicated; E11.9 Type 2 diabetes mellitus without complications; Z79.51 Long term (current) use of inhaled steroids
CPT/HCPCS: 96361; 96374; 96375; 99284; J0780; J1885

== ENCOUNTER 2022-10-11 08:35 | Outpatient (REF) | payer MEDICAID, SELFPAY ==
--- NOTE | 2022-10-11 08:15 | PAPFT_PTH ---
PATIENT: Dawn Nye LOC: [facility]#:[id number] AGE/SX: 42/F ROOM: RE10/11/[address]: Deyanira Marcus : 1980 BED: DIS: 10/11/2022 SPEC #: [id number] RECD: 10/11/22 17:22 STATUS: BHANU TODD #: [id number] AMY: 10/11/22 08:[address]: Deyanira Marcus DEPT: [facility] Cytology RECD BY: Karyn Santo Tissues: 1 - CX/ENDOCX FOR PAP SMEARS Procedures: PAP THIN PREP/UVM Screening HPV DNA PROBE Comments: [id number] (CHLAMYDIA/GC)
[2022-10-12 13:18] LABS: Chlamydia Result Negative (Negative); GC Result Negative (Negative)
== END 2022-10-11 08:36 | disposition home or self-care (01) ==
LOC: NCHCN 08:35
PROVIDERS: PCP Nurse Practitioner Family; Visit Provider Nurse Practitioner Family
DX: Z12.4 Encounter for screening for malignant neoplasm of cervix (principal); Z11.3 Encounter for screening for infections with a predominantly sexual mode of transmission; R87.610 Atypical squamous cells of undetermined significance on cytologic smear of cervix (ASC-US); Z11.51 Encounter for screening for human papillomavirus (HPV)
CPT/HCPCS: 87491; 87591; 88142; 87624

== ENCOUNTER 2022-10-23 13:49 | Emergency (ER) | payer MEDICAID, SELFPAY ==
[2022-10-23 13:51] VITALS: BP 116/66; PULSE 68; RESP 20; TEMP 36.2; O2SAT 98
--- NOTE | 2022-10-23 14:21 | ED.GENADUL_ITS ---
Discharge Plan Disposition Patient Disposition: Home Condition: Improving Discharge Details Clinical Impression: Gastroenteritis Primary Care Provider: Deyanira Marcus ED Provider: Oumar Wong Home Meds and New Rx's Prescriptions: Continued docusate sodium 100 mg capsule 100 mg PO DAILY PRN sumatriptan succinate 50 mg tablet See Rx Instructions PO .COMPLEX PRN Rx Instructions: take 1 tab at onset of headache; if no relief may repeat 1 tab after at least 2 hrs; max = 4 tabs/24 hr PO albuterol sulfate [ProAir HFA] 90 mcg/actuation HFA aerosol inhaler 2 inh inhalation Q6H PRN fluticasone propionate [Flovent HFA] 110 mcg/actuation HFA aerosol inhaler 1 inh inhalation BID ursodiol 200 mg capsule 250 mg PO DAILY magnesium L-lactate [Magtab] 84 mg tablet extended release 84 mg PO DAILY biotin 1 mg capsule 1 mg PO BID divalproex 250 mg tablet,delayed release (DR/EC) 250 mg PO BID abvyvmsxwlxo-Vf-pfqa-minerals 18-0.4 mg tablet 1 tab PO DAILY pantoprazole 40 mg Tablet,Delayed Release (Dr/Ec) 40 mg PO DAILY loratadine 10 mg capsule 10 mg PO DAILY PRN sucralfate [Carafate] 100 mg/mL suspension 10 ml PO BID Qty: 200 1RF acetaminophen 500 mg tablet 500 mg PO Q6H PRN (Reason: pain) Qty: 60 0RF tramadol 50 mg tablet 50 mg PO Q6H MDD 4 PRN (Reason: pain) Qty: 20 0RF Rx Instructions: may take along with Tylenol Discharge Instructions Instructions: Gastroenteritis (ED) Additional Instructions: Home to rest today. Small, frequent sips of fluids to maintain hydration. May use the provided ondansetron if needed for further nausea. Return to the emergency department for any acute concerns. Medical Decision Making This is a 42-year-old female presents with day 2 of nausea, vomiting, and loose watery stool. She denies any suspicious food contacts or known sick contacts. She states she has been intermittently able to sip liquids but not any solid food for 2 days. She has not noted a fever and no blood in the stool or emesis. Patient is well-appearing, afebrile with unremarkable vital signs. Her exam is reassuring. She is given oral Zofran. The patient is not . Urinalysis reveals a specific gravity of 1.025. Negative ketones. Patient improved following Zofran and able to take liquids by mouth without further emesis. She is stable and improving. Will offer ondansetron for home. Likely this is a mild viral gastroenteritis. HPI General Mode of arrival: ambulatory . Date/Time Provider Initiated Documentation: 10/23/22 13:54 . Limitations to Documentation: no limitations . Information obtained by: patient . History of Present Illness 42 year old F presents to the emergency department with the chief complaint of Nausea, vomiting, diarrhea x2 days, described as mild, and is localized to the abdomen. Patient started experiencing this day(s) and it has been intermittent. No relieving factors improve symptom(s), Eating worsens symptoms . Patient notes no other symptoms. and nausea/vomiting; denies fever/chills, syncope and weakness. Patient did receive the following treatments prior to arrival, none Related Data Home Medications Medication Instructions Recorded Confirmed pantoprazole 40 mg tablet,delayed 40 mg PO DAILY 05/11/19 10/23/22 release docusate sodium 100 mg capsule 100 mg PO DAILY PRN 08/30/19 07/05/22 sumatriptan succinate 50 mg tablet See Rx Instructions PO .COMPLEX PRN 11/27/19 10/23/22 acetaminophen 500 mg tablet 500 mg PO Q6H PRN pain #60 tabs 05/28/20 10/23/22 loratadine 10 mg capsule 10 mg PO DAILY PRN 01/21/21 10/23/22 albuterol sulfate 90 mcg/actuation 2 inh inhalation Q6H PRN 03/23/21 10/23/22 aerosol inhaler (ProAir HFA) fluticasone propionate 110 1 inh inhalation BID 03/23/21 10/23/22 mcg/actuation HFA aerosol inhaler (Flovent HFA) biotin 1 mg capsule 1 mg PO BID 10/22/21 10/23/22 divalproex 250 mg tablet,delayed 250 mg PO BID 10/22/21 10/23/22 release magnesium L-lactate 84 mg 84 mg PO DAILY 10/22/21 10/23/22 tablet,extended release (Magtab) grcbrbtqsyfr-Cw-mkhr-minerals 18 1 tab PO DAILY 10/22/21 10/23/22 mg-0.4 mg tablet ursodiol 200 mg capsule 250 mg PO DAILY 10/22/21 10/23/22 sucralfate 100 mg/mL oral 10 ml PO BID #200 mL 12/17/21 10/23/22 suspension (Carafate) tramadol 50 mg tablet 50 mg PO Q6H PRN pain #20 tabs 02/25/22 10/23/22 Previous Rx's Medication Instructions Recorded acetaminophen 500 mg tablet 500 mg PO Q6H PRN pain #60 tabs 05/28/20 sucralfate 100 mg/mL oral 10 ml PO BID #200 mL 12/17/21 suspension (Carafate) tramadol 50 mg tablet 50 mg PO Q6H PRN pain #20 tabs 02/25/22 Allergies Allergy/AdvReac Type Severity Reaction Status Date / Time amoxicillin Allergy Severe trouble Verified 10/23/22 13:55 breathing and a rash artichoke Allergy Severe ANAPHYLAXIS Verified 10/23/22 13:55 Penicillins Allergy Intermediate HIVES Verified 10/23/22 13:55 sodium hypochlorite solution Allergy Intermediate HIVES/SOB Verified 10/23/22 13:55 [sodium hypochlorite] adhesive tape Allergy Mild Skin Rash Unverified 10/23/22 13:55 General Stated Complaint: Nausea/Vomit/Diar MIKE: 4 Review of Systems Narrative: 6 systems reviewed and otherwise negative PFSH All Active Problems (Updated 10/23/22 @ 15:49 by Oumar Wong MD) Gastroenteritis (Acute) Psychogenic nonepileptic seizure (Acute) Screening for colon cancer (Acute) Bilateral kidney stones (Acute) Arm paresthesia, right (Acute) Anxiety and depression (Acute 02/12/14) Diabetes (Acute 02/12/14) diet controlled Elevated lipids (Acute 02/12/14) Migraine (Acute 02/12/14) Numbness of left hand (Acute 07/04/17) Tubular adenoma of colon (Acute 11/26/16) Carpal tunnel syndrome on both sides (Acute) Medial epicondylitis, left elbow (Acute) CHAPARRO (nonalcoholic steatohepatitis) (Acute) Viral illness (Acute) Migraine headache without aura (Acute) Right lateral epicondylitis (Acute) Medial epicondylitis, right elbow (Acute) Cubital tunnel syndrome on right (Acute) Right wrist sprain (Acute) Contusion of right forearm (Acute) Sprain of right elbow (Acute) Bradycardia (Acute) Vomiting (Acute) Hematemesis (Acute) Sinus bradycardia (Acute) Hypokalemia (Acute) Fall (Acute) Seizure disorder (Chronic) Bipolar 1 disorder (Acute) Gastric bypass status for obesity (Acute) Chest pain (Acute) Left ankle sprain (Acute) Medical History Adrenal abnormality Anxiety and depression Asthma Cervical cancer Chronic back pain Diabetes mellitus, type 2 Elevated lipids GERD (gastroesophageal reflux disease) Kidney stone Migraine Obstructive sleep apnea syndrome pt. states she does not have this anymore r/t to gastric bypass Polycystic ovaries Surgical History anterior cruciate ligament reconstruction section twice Colonoscopy - MAC (11/26/16) Cubital tunnel syndrome on left (09/14/17) 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 (Date of Surgery: 03/02/18 and 10/02/2019) EGD - MAC (11/26/16) Endoscopic Carpal Tunnel release (01/14/09) 09/16/2010 REPEAT ECTR RIGHT H/O gastric bypass History of lumbar surgery Pt reports lower back disc, rods and screws 5 years ago, 2017' Ligation of fallopian tube Open Carpal Tunnel release (10/23/12) RIGHT SIDE, left 8.14.14 Vaginal hysterectomy Social History Smoking/Tobacco Use Status: Former Tobacco Use Quit Date: 08/01/05 Smoking risk assessment performed?: Yes Alcohol Intake: never Drug use: Never Substance use type: does not use Household members: spouse and children Housing: other Details: trailer Current gender identity: female What is your relationship status?: Panel score (0-1 are the most socially isolated patients): 1 Seatbelt use: always Do you feel safe at home: Yes Do you feel safe in your relationship?: Yes Exam Narrative Exam Narrative: GEN: awake, alert, oriented 3. Pleasant, well groomed, interactive. HEAD: Normocephalic, atraumatic ENT: Mucous membranes moist, oropharynx unremarkable, External ear exam unremarkable EYES: PERRL, EOMI NECK: Full ROM, no CARLI, no menigismus CHEST/RESP: Nontender, clear to auscultation bilateral, no wheeze/rhonchi/rales CARDIOVASCULAR: RRR, no murmur, rub melissa. 2+ Rad pulse bilateral ABDOMEN: Soft, nontender, no mass. +Bowel sounds EXT: Full ROM, no edema, no rash Neuro: Grossly normal neurologic exam, conversant, interactive. Psych: Speech fluent, thoughts congruent, affect normal Course Vital Signs Vital signs: Vital Signs Temperature 36.2 C L 10/23/22 13:51 Pulse 68 10/23/22 13:51 Respiratory Rate 20 10/23/22 13:51 Blood Pressure 116/66 10/23/22 13:51 Pulse Oximetry 98 10/23/22 13:51 Temperature 36.2 C L 10/23/22 13:51 Temperature Source Tympanic 10/23/22 13:51 Pulse 68 10/23/22 13:51 Respiratory Rate 20 10/23/22 13:51 Respiratory Effort Normal, Non-Labored 10/23/22 13:55 Blood Pressure 116/66 10/23/22 13:51 Blood Pressure Position Sitting 10/23/22 13:51 Pulse Oximetry 98 10/23/22 13:51 Oxygen Delivery Method Room Air 10/23/22 13:51 Oxygen Flow Rate 0 10/23/22 13:51 Pain Level 4 10/23/22 13:51
[2022-10-23] MEDS: Ondansetron O.D.T. 4 MG TABEF PO (14:29)
[2022-10-23 14:36] LABS: Bilirubin Negative (Negative); Blood Negative (Negative); Clarity Clear (Clear); Glucose Negative (Negative); Ketones Negative (Negative); Leukocyte Esterase Negative (Negative); Nitrite Negative (Negative); Specific Gravity 1.025 (1.005-1.025); Urobilinogen 0.2 mg/dL (Up to 0.2)
[2022-10-23] MEDS: Ondansetron O.D.T. 4 MG TABEF, 3 TABS/BTL PO (15:59)
== END 2022-10-23 16:00 | disposition home or self-care (01) ==
PROVIDERS: Emergency Provider Emergency Medicine; PCP Nurse Practitioner Family
DX: K52.9 Noninfective gastroenteritis and colitis, unspecified (principal); R11.2 Nausea with vomiting, unspecified
CPT/HCPCS: 81025; 99283; 81003; 99284

== ENCOUNTER 2022-10-26 18:09 | Outpatient (REF) | payer MEDICAID, SELFPAY ==
[2022-10-26 20:35] LABS: Anion Gap 7.9 mmol/L (3-11); BUN 11 mg/dL (7-18); CO2 31.1 mmol/L (21.0-32.0); CREATININE 0.7 mg/dL (0.55-1.02); Calcium 10.2 mg/dL (8.5-10.1); Chloride 103 mmol/L (98-107); Estimated GFR 112.05 (mL/min/1.73m2); Glucose 84 mg/dL (74-106); Potassium 4.2 mmol/L (3.5-5.1); Sodium 142 mmol/L (136-145)
[2022-10-28 10:38] LABS: HIV-1/2 Ag & Ab Screen Negative (Negative)
[2022-10-28 10:42] LABS: Syphilis Serology (RPR) Negative (Negative)
== END 2022-10-26 18:10 | disposition home or self-care (01) ==
LOC: NCHCN 18:09
PROVIDERS: PCP Nurse Practitioner Family; Visit Provider Nurse Practitioner Family
DX: E83.42 Hypomagnesemia (principal); Z11.3 Encounter for screening for infections with a predominantly sexual mode of transmission; Z11.4 Encounter for screening for human immunodeficiency virus [HIV]
CPT/HCPCS: 80048; 87389; 86592

== ENCOUNTER 2022-11-04 02:35 | Outpatient (CLI) | payer MEDICAID, SELFPAY ==
--- NOTE | 2022-11-04 | DI.US_ITS ---
Exam(s) US BREAST LT COMPLETE MG MAMMO DIAGNOSTIC BI EXAM: MG MAMMO DIAGNOSTIC BI AND COMPLETE LEFT BREAST ULTRASOUND CLINICAL HISTORY: LT BREAST LUMP OR MASS, N63.0. TECHNIQUE: Bilateral CC and MLO mammographic images were obtained with 3D tomosynthesis technique an d utilizing computer aided detection (CAD). Also performed complete left breast ultrasound including all 4 quadrants and left axilla. COMPARISON: This is a baseline mammogram on this 42-year-old patient. Her medical provider apparent darin felt a possible lump in the lateral aspect of the left breast on recent routine physical exam. Evelio lux did not present to her provider with a self detected breast change. FINDINGS: DIAGNOSTIC BILATERAL MAMMOGRAM: There are no spiculated masses nor malignant-appearing microcalcification groups in either breast. No new significant architectural distortion or skin thickening-retraction. COMPLETE LEFT BREAST ULTRASOUND: No solid or significant cystic lesions seen in all 4 quadrants. Scanning of the left axilla is negative for adenopathy. IMPRESSION: 1. No radiographic evidence of malignancy. 2. Negative complete left breast ultrasound. The patient was informed of the findings and follow-up recommendations prior to leaving the [facility] today. BI-RADS Category 1 - Negative Breast Density - Category B - Scattered areas of fibroglandular density Breast density Category C or D implies that the patient has dense breast tissue. Dense breast tissue can make it harder to find cancer on a mammogram. Dense breast tissue is also associated with an incr eased risk of breast cancer. This information about the result of the mammogram report was provided to the patient to raise their awareness. Use this report when you speak with the patient about their risks for breast cancer, which includes their family history. At that time, you may recommend additional screening tests (Ultrasoun d or MRI) as these tests may add significant information. A negative radiographic report should not delay biopsy if a dominant or clinically suspicious mass is present. Up to ten percent of cancers are not identified on mammography. A negative report may reinforce clinical impression. Adenosis and dense breasts may obscure an underlying neoplasm. False positive reports average 6 to 10%. Patient will receive a letter notifying them of these results.
== END 2022-11-04 02:55 ==
PROVIDERS: PCP Nurse Practitioner Family; Visit Provider Nurse Practitioner Family
DX: N63.25 Unspecified lump in the left breast, overlapping quadrants (principal)
CPT/HCPCS: 76642; 77062; 77066; G0279

== ENCOUNTER 2022-12-03 18:12 | Emergency (ER) | payer MEDICAID, SELFPAY ==
[2022-12-03 18:16] VITALS: BP 138/84; PULSE 74; RESP 18; O2SAT 97
--- NOTE | 2022-12-03 19:24 | W.ED.GENAD ---
Discharge Plan Disposition Patient Disposition: Home Discharge Details Clinical Impression: Hypoglycemia Primary Care Provider: Deyanira Marcus ED Provider: Ale Christensen Home Meds and New Rx's Prescriptions: Continued docusate sodium 100 mg capsule 100 mg PO DAILY PRN sumatriptan succinate 50 mg tablet See Rx Instructions PO .COMPLEX PRN Rx Instructions: take 1 tab at onset of headache; if no relief may repeat 1 tab after at least 2 hrs; max = 4 tabs/24 hr PO albuterol sulfate [ProAir HFA] 90 mcg/actuation HFA aerosol inhaler 2 inh inhalation Q6H PRN fluticasone propionate [Flovent HFA] 110 mcg/actuation HFA aerosol inhaler 1 inh inhalation BID ursodiol 200 mg capsule 250 mg PO DAILY magnesium L-lactate [Magtab] 84 mg tablet extended release 84 mg PO DAILY biotin 1 mg capsule 1 mg PO BID divalproex 250 mg tablet,delayed release (DR/EC) 250 mg PO BID bivagszqfgoy-Ef-kcuy-minerals 18-0.4 mg tablet 1 tab PO DAILY pantoprazole 40 mg Tablet,Delayed Release (Dr/Ec) 40 mg PO DAILY loratadine 10 mg capsule 10 mg PO DAILY PRN sucralfate [Carafate] 100 mg/mL suspension 10 ml PO BID Qty: 200 1RF acetaminophen 500 mg tablet 500 mg PO Q6H PRN (Reason: pain) Qty: 60 0RF tramadol 50 mg tablet 50 mg PO Q6H MDD 4 PRN (Reason: pain) Qty: 20 0RF Rx Instructions: may take along with Tylenol Discharge Instructions Instructions: Non-diabetic Hypoglycemia (ED) Additional Instructions: No evidence of diabetes today. Your hemoglobin A1c is within normal limits. I do suspect that this is from you not eating any protein today. Please eat 3 regular meals that include protein in the next couple of days. Follow up with primary care provider in 3-5 days. Return to ED sooner if any worsening or concerns. Increase oral fluids. Referrals: Deyanira Marcus [Primary Care Provider] - 3 days Medical Decision Making 42-year-old female with a past medical history of gastric bypass, seizure disorder bipolar 1 disorder hypokalemia presents to the ER with a chief complaint of possible low blood sugar. She also reports feeling fatigued and tired and zoning out. She reports being very sleepy today and her mom checked her sugar which read low. She has eaten some chocolate, toast, and chips today denies any nausea vomiting diarrhea denies any pain anywhere Work-up ordered including CBC CMP, urinalysis, hemoglobin A1c, valproic acid level. Patient does take DivalPrilovix sodium. We will feed patient a sandwich. BGL upon arrival is 93. Differential diagnosis includes but not limited to hypoglycemia, dehydration, seizure CBC shows white blood cell count of 11.88, neutrophils 8.14 CMP largely within normal limits, urinalysis shows no evidence for UTI no leukocytes no nitrites UDS is negative. Hemoglobin A1c is within normal limits at 5.3 Repeat BGL after eating is high which is 115. We will discharge with follow-up with PCP. No evidence of seizure-like activity. This text was generated using Tellyation system, please disregard any oddities of phrase or misspellings. Medical Records Medical records reviewed: Yes I reviewed the patient's medical records. Lab Data Lab results reviewed: Yes I reviewed the patient's lab results. Labs: Laboratory Tests Range/Units 12/03/22 12/03/22 12/03/22 19:10 19:10 19:10 WBC (4.4-10.8) 10^3/uL 11.88 H RBC (3.93-5.22) 10^6/uL 4.76 Hgb (11.2-15.7) g/dL 13.7 Hct (36.0-46.0) % 40.7 MCV (80-95) fL 86 MCH (27.0-33.0) pg 28.8 MCHC (32.0-36.0) % 33.7 RDW (11.7-14.6) % 12.4 Plt Count (130-400) 10^3/uL 284 MPV (8.0-11.0) fL 10.9 Immature Gran % 0.2 Neutrophils % 68.5 Lymphocytes % 23.7 Monocytes % 6.4 Eosinophils % 0.6 Basophils % 0.6 Nucleated RBC % (0.0-0.3) % 0.0 Absolute Neutrophils (1.2-6.7) 10^3/uL 8.14 H Absolute Lymphocytes (1.2-3.4) 10^3/uL 2.82 Absolute Monocytes (0.1-0.8) 10^3/uL 0.76 Absolute Eosinophils (0.0-0.7) 10^3/uL 0.07 Absolute Basophils (0.0-0.2) 10^3/uL 0.07 Sodium (136-145) mmol/L 139 Potassium (3.5-5.1) mmol/L 3.8 Chloride (98-107) mmol/L 105 Carbon Dioxide (21.0-32.0) mmol/L 29.4 Anion Gap (3-11) mmol/L 4.6 BUN (7-18) mg/dL 10 Creatinine (0.55-1.02) mg/dL 0.8 Est GFR (CKD-EPI 2020) (mL/min/1.73m2) 95.46 Glucose (74-106) mg/dL 75 Hemoglobin A1c (<5.7) % Calcium (8.5-10.1) mg/dL 9.4 Magnesium (1.8-2.4) mg/dL 1.9 Total Bilirubin (0.2-1.0) mg/dL 0.2 AST (15-37) U/L 19 ALT (14-59) U/L 43 Alkaline Phosphatase (46-116) U/L 113 Total Protein (6.4-8.2) g/dL 8.3 H Albumin (3.4-5.0) g/dL 4.1 Urine Color (Yellow) Urine Clarity (Clear) Urine pH (5-8) Ur Specific [place] (1.005-1.025) Urine Protein (Negative) mg/dL Urine Ketones (Negative) mg/dL Urine Blood (Negative) Urine Nitrite (Negative) Urine Bilirubin (Negative) Urine Urobilinogen (Up to 0.2) mg/dL Ur Leukocyte Esterase (Negative) Urine Glucose (Negative) mg/dL Urine Opiates Screen (Negative) Urine Methadone Screen (Negative) Ur Barbiturates Screen (Negative) Valproic Acid ( - 150) ug/mL 23.9 Ur Tricyclics Screen (Negative) Ur Amphetamines Screen (Negative) U Benzodiazepines Scrn (Negative) Urine Cocaine Screen (Negative) Ur THC Screen (Negative) Range/Units 12/03/22 12/03/22 12/03/22 19:10 19:55 19:55 WBC (4.4-10.8) 10^3/uL RBC (3.93-5.22) 10^6/uL Hgb (11.2-15.7) g/dL Hct (36.0-46.0) % MCV (80-95) fL MCH (27.0-33.0) pg MCHC (32.0-36.0) % RDW (11.7-14.6) % Plt Count (130-400) 10^3/uL MPV (8.0-11.0) fL Immature Gran % Neutrophils % Lymphocytes % Monocytes % Eosinophils % Basophils % Nucleated RBC % (0.0-0.3) % Absolute Neutrophils (1.2-6.7) 10^3/uL Absolute Lymphocytes (1.2-3.4) 10^3/uL Absolute Monocytes (0.1-0.8) 10^3/uL Absolute Eosinophils (0.0-0.7) 10^3/uL Absolute Basophils (0.0-0.2) 10^3/uL Sodium (136-145) mmol/L Potassium (3.5-5.1) mmol/L Chloride (98-107) mmol/L Carbon Dioxide (21.0-32.0) mmol/L Anion Gap (3-11) mmol/L BUN (7-18) mg/dL Creatinine (0.55-1.02) mg/dL Est GFR (CKD-EPI 2020) (mL/min/1.73m2) Glucose (74-106) mg/dL Hemoglobin A1c (<5.7) % 5.3 Calcium (8.5-10.1) mg/dL Magnesium (1.8-2.4) mg/dL Total Bilirubin (0.2-1.0) mg/dL AST (15-37) U/L ALT (14-59) U/L Alkaline Phosphatase (46-116) U/L Total Protein (6.4-8.2) g/dL Albumin (3.4-5.0) g/dL Urine Color (Yellow) Yellow Urine Clarity (Clear) Clear Urine pH (5-8) 7.0 Ur Specific [place] (1.005-1.025) 1.025 Urine Protein (Negative) mg/dL Negative Urine Ketones (Negative) mg/dL Negative Urine Blood (Negative) Negative Urine Nitrite (Negative) Negative Urine Bilirubin (Negative) Negative Urine Urobilinogen (Up to 0.2) mg/dL 1.0 H Ur Leukocyte Esterase (Negative) Negative Urine Glucose (Negative) mg/dL Negative Urine Opiates Screen (Negative) Negative Urine Methadone Screen (Negative) Negative Ur Barbiturates Screen (Negative) Negative Valproic Acid ( - 150) ug/mL Ur Tricyclics Screen (Negative) Negative Ur Amphetamines Screen (Negative) Negative U Benzodiazepines Scrn (Negative) Negative Urine Cocaine Screen (Negative) Negative Ur THC Screen (Negative) Negative HPI General Date/Time Provider Initiated Documentation: 12/03/22 18:14. Limitations to Documentation: no limitations. Information obtained by: patient, RN notes reviewed and old records reviewed. HPI Narrative: 42-year-old female with a past medical history of gastric bypass, seizure disorder bipolar 1 disorder hypokalemia presents to the ER with a chief complaint of possible low blood sugar. She also reports feeling fatigued and tired and zoning out. She reports being very sleepy today and her mom checked her sugar which read low. She has eaten some chocolate, toast, and chips today denies any nausea vomiting diarrhea denies any pain anywhere. Denies any seizure-like activity. Related Data Home Medications Medication Instructions Recorded Confirmed pantoprazole 40 mg tablet,delayed 40 mg PO DAILY 05/11/19 12/03/22 release docusate sodium 100 mg capsule 100 mg PO DAILY PRN 08/30/19 12/03/22 sumatriptan succinate 50 mg tablet See Rx Instructions PO .COMPLEX PRN 11/27/19 12/03/22 acetaminophen 500 mg tablet 500 mg PO Q6H PRN pain #60 tabs 05/28/20 12/03/22 loratadine 10 mg capsule 10 mg PO DAILY PRN 01/21/21 12/03/22 albuterol sulfate 90 mcg/actuation 2 inh inhalation Q6H PRN 03/23/21 12/03/22 aerosol inhaler (ProAir HFA) fluticasone propionate 110 1 inh inhalation BID 03/23/21 12/03/22 mcg/actuation HFA aerosol inhaler (Flovent HFA) biotin 1 mg capsule 1 mg PO BID 10/22/21 12/03/22 divalproex 250 mg tablet,delayed 250 mg PO BID 03/24/22 05/05/23 release magnesium L-lactate 84 mg 84 mg PO DAILY 10/22/21 12/03/22 tablet,extended release (Magtab) zznharqbgnln-Kq-qtqy-minerals 18 1 tab PO DAILY 10/22/21 12/03/22 mg-0.4 mg tablet ursodiol 200 mg capsule 250 mg PO DAILY 10/22/21 12/03/22 sucralfate 100 mg/mL oral 10 ml PO BID #200 mL 12/17/21 12/03/22 suspension (Carafate) tramadol 50 mg tablet 50 mg PO Q6H PRN pain #20 tabs 02/25/22 12/03/22 Previous Rx's Medication Instructions Recorded acetaminophen 500 mg tablet 500 mg PO Q6H PRN pain #60 tabs 05/28/20 sucralfate 100 mg/mL oral 10 ml PO BID #200 mL 12/17/21 suspension (Carafate) tramadol 50 mg tablet 50 mg PO Q6H PRN pain #20 tabs 02/25/22 Allergies Allergy/AdvReac Type Severity Reaction Status Date / Time amoxicillin Allergy Severe trouble Verified 12/03/22 18:20 breathing and a rash artichoke Allergy Severe ANAPHYLAXIS Verified 12/03/22 18:20 Penicillins Allergy Intermediate HIVES Verified 12/03/22 18:20 sodium hypochlorite solution Allergy Intermediate HIVES/SOB Verified 12/03/22 18:20 [sodium hypochlorite] adhesive tape Allergy Mild Skin Rash Unverified 12/03/22 18:20 General Stated Complaint: GenMedical MIKE: 3 Review of Systems All systems reviewed & are unremarkable except as noted in HPI and below Constitutional Constitutional: Reports as per HPI, Reports daytime sleepiness, Reports fatigue, Reports lethargy, Reports poor appetite and Reports weight loss Gastrointestinal Gastrointestinal: Denies abdominal pain, Denies diarrhea, Denies nausea and Denies vomiting Endocrine Endocrine: Reports as per HPI and Reports fatigue PFSH All Active Problems (Updated 12/03/22 @ 20:39 by Ale Christensen NP) Hypoglycemia (Acute) Psychogenic nonepileptic seizure (Acute) Screening for colon cancer (Acute) Bilateral kidney stones (Acute) Arm paresthesia, right (Acute) Anxiety and depression (Acute 02/12/14) Diabetes (Acute 02/12/14) diet controlled Elevated lipids (Acute 07/15/14) Migraine (Acute 02/12/14) Numbness of left hand (Acute 07/04/17) Tubular adenoma of colon (Acute 11/26/16) Carpal tunnel syndrome on both sides (Acute) Medial epicondylitis, left elbow (Acute) CHAPARRO (nonalcoholic steatohepatitis) (Acute) Viral illness (Acute) Migraine headache without aura (Acute) Right lateral epicondylitis (Acute) Medial epicondylitis, right elbow (Acute) Cubital tunnel syndrome on right (Acute) Right wrist sprain (Acute) Contusion of right forearm (Acute) Sprain of right elbow (Acute) Bradycardia (Acute) Vomiting (Acute) Hematemesis (Acute) Sinus bradycardia (Acute) Hypokalemia (Acute) Fall (Acute) Seizure disorder (Chronic) Bipolar 1 disorder (Acute) Gastric bypass status for obesity (Acute) Chest pain (Acute) Left ankle sprain (Acute) Medical History Adrenal abnormality Anxiety and depression Asthma Cervical cancer Chronic back pain Diabetes mellitus, type 2 Elevated lipids GERD (gastroesophageal reflux disease) Kidney stone Migraine Obstructive sleep apnea syndrome pt. states she does not have this anymore r/t to gastric bypass Polycystic ovaries Surgical History anterior cruciate ligament reconstruction section twice Colonoscopy - MAC (11/26/16) Cubital tunnel syndrome on left (09/14/17) 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 (Date of Surgery: 03/02/18 and 10/02/2019) EGD - MAC (11/26/16) Endoscopic Carpal Tunnel release (01/14/09) 09/16/2010 REPEAT ECTR RIGHT H/O gastric bypass History of lumbar surgery Pt reports lower back disc, rods and screws 5 years ago, 2017' Ligation of fallopian tube Open Carpal Tunnel release (10/23/12) RIGHT SIDE, left 8.14.14 Vaginal hysterectomy Social History Smoking/Tobacco Use Status: Former Tobacco Use Quit Date: 08/01/05 Smoking risk assessment performed?: Yes Alcohol Intake: never Drug use: Never Substance use type: does not use Household members: spouse and children Housing: other Details: trailer Current gender identity: female What is your relationship status?: Panel score (0-1 are the most socially isolated patients): 1 Seatbelt use: always Do you feel safe at home: Yes Do you feel safe in your relationship?: Yes Exam Narrative Exam Narrative: Constitutional: Alert and oriented x3. Appears stated age. Normal body habitus. Head: Normocephalic, no trauma. Eyes: Pupils PERRL, Red reflex noted, EOM's intact. Eyelids symmetrical without lesions, discharge, or swelling. ENT: Bilateral TM's WNL, External ear normal to inspection, no mastoid TTP, swelling, or erythema, Nasal turbinates WNL, no nasal discharge. Normal dentition, Posterior pharynx WNL, no exudate. Chest: RRR, Normal S1, S2, distal pulses intact. Resp: Lungs clear to auscultation bilaterally, no wheezes, rales, or rhonchi. Abdomen: Soft, non-distended, Normoactive bowel sounds all 4 quads. Musculoskeletal: Normal gait, 5/5 strength to all four extremities. Skin: No suspicious rashes or lesions. Capillary refill less than 2 sec. Neurologic: Cranial nerves II-XII intact. Alert and oriented x 3. Motor: No deficits noted. Sensory: Intact bilaterally all 4 extremities. Reflexes: DTR's intact bilaterally.. Hematologic/Lymphatic: No ecchymosis, no lymphadenopathy. Course Vital Signs Vital signs: Vital Signs Pulse 74 12/03/22 18:16 Respiratory Rate 18 12/03/22 18:16 Blood Pressure 138/84 12/03/22 18:16 Pulse Oximetry 97 12/03/22 18:16 Pulse 74 12/03/22 18:16 Respiratory Rate 18 12/03/22 18:16 Respiratory Effort Normal, Non-Labored 12/03/22 18:21 Blood Pressure 138/84 12/03/22 18:16 Blood Pressure Position Sitting 12/03/22 18:16 Pulse Oximetry 97 12/03/22 18:16 Oxygen Delivery Method Room Air 12/03/22 18:16 Oxygen Flow Rate 0 12/03/22 18:16
[2022-12-03 19:27] LABS: Abs Immature Grans 0.02 10^3/uL (0.0-0.06); Absolute Basophil Count 0.07 10^3/uL (0.0-0.2); Absolute Eosinophil Count 0.07 10^3/uL (0.0-0.7); Absolute Lymphocyte Count 2.82 10^3/uL (1.2-3.4); Absolute Monocyte Count 0.76 10^3/uL (0.1-0.8); Absolute Neutrophil Count 8.14 10^3/uL (1.2-6.7); Basophils % 0.6; Eosinophils % 0.6; HCT 40.7 % (36.0-46.0); HGB 13.7 g/dL (11.2-15.7); Immature Grans % 0.2; Lymphocytes % 23.7; MCH 28.8 pg (27.0-33.0); MCHC 33.7 % (32.0-36.0); MCV 86 fL (80-95); MPV 10.9 fL (8.0-11.0); Monocytes % 6.4; Neutrophils % 68.5; Platelet Count 284 10^3/uL (130-400); RBC 4.76 10^6/uL (3.93-5.22); RDW 12.4 % (11.7-14.6); RDW-SD 38.7 fL; WBC 11.88 10^3/uL (4.4-10.8)
[2022-12-03 19:35] LABS: ALT 43 U/L (14-59); AST 19 U/L (15-37); Albumin 4.1 g/dL (3.4-5.0); Alkaline Phosphatase 113 U/L (46-116); Anion Gap 4.6 mmol/L (3-11); BUN 10 mg/dL (7-18); Bilirubin, Total 0.2 mg/dL (0.2-1.0); CO2 29.4 mmol/L (21.0-32.0); CREATININE 0.8 mg/dL (0.55-1.02); Calcium 9.4 mg/dL (8.5-10.1); Chloride 105 mmol/L (98-107); Estimated GFR 95.46 (mL/min/1.73m2); Glucose 75 mg/dL (74-106); Magnesium 1.9 mg/dL (1.8-2.4); Potassium 3.8 mmol/L (3.5-5.1); Sodium 139 mmol/L (136-145); Total Protein 8.3 g/dL (6.4-8.2)
[2022-12-03 19:37] LABS: VALPROIC ACID 23.9 ug/mL
[2022-12-03 20:04] LABS: Hemoglobin A1C 5.3 % (<5.7)
[2022-12-03 20:10] LABS: Bilirubin Negative (Negative); Blood Negative (Negative); Clarity Clear (Clear); Glucose Negative (Negative); Ketones Negative (Negative); Leukocyte Esterase Negative (Negative); Nitrite Negative (Negative); Specific Gravity 1.025 (1.005-1.025)
[2022-12-03 20:28] LABS: *AMPHETAMINES SCREEN URINE Negative (Negative); *BARBITURATES SCREEN URINE Negative (Negative); *BENZODIAZEPINES SCREEN URINE Negative (Negative); Cannabinoids THC Negative (Negative); Cocaine Screen,Urine Negative (Negative); METHADONE URINE SCREEN Negative (Negative); OPIATES URINE SCREEN Negative (Negative)
[2022-12-03 20:34] LABS: Tricyclic Antidepressants Negative (Negative)
[2022-12-03 20:58] VITALS: BP 133/80; PULSE 70; RESP 18; TEMP 36.5; O2SAT 96
== END 2022-12-03 21:02 | disposition home or self-care (01) ==
PROVIDERS: Emergency Provider Registered Nurse Emergency; PCP Nurse Practitioner Family
DX: E16.2 Hypoglycemia, unspecified (principal); R53.83 Other fatigue; Z79.899 Other long term (current) drug therapy; F31.9 Bipolar disorder, unspecified
CPT/HCPCS: 36415; 36416; 80053; 80307; 82962; 99283; 80164; 81003; 83036; 83735; 85025

== ENCOUNTER 2023-01-27 18:24 | Emergency (ER) | payer MEDICAID, SELFPAY ==
[2023-01-27 18:28] VITALS: BP 106/53; PULSE 53; RESP 18; TEMP 36.8; O2SAT 100
--- NOTE | 2023-01-27 20:00 | DI.RAD_ITS ---
Exam(s) XR SCAPULA LT EXAM: XR SCAPULA LT CLINICAL HISTORY: fall pain. TECHNIQUE: 2D digital imaging was performed. COMPARISON: CR XR shoulder RT complete 2+V from 02/27/2019 FINDINGS: BONES: No acute fracture is present. No bony destructive lesion is seen. JOINTS: No dislocation present. SOFT TISSUE: Normal. IMPRESSION: Unremarkable radiographs of the left scapula. DATA REPOSITORY: RADIATION DOSE DELIVERED:
--- NOTE | 2023-01-27 21:00 | DI.VRAD_ITS ---
PROCEDURE INFORMATION: Exam: XR Left Scapula Exam date and time: 01/27/2023 20:21 Age: 42 years old Clinical indication: Injury or trauma; Fall; Blunt trauma (contusions or hematomas); Shoulder; Left; Patient HX: Scapula pain TECHNIQUE: Imaging protocol: Radiologic exam of the left scapula. Complete exam. COMPARISON: CR XR CHEST 2V PA LATERAL 12/17/2021 12:32 FINDINGS: Bones/joints: The scapula is intact. No acute fracture or subluxation. Soft tissues: Normal. IMPRESSION: The scapula is intact. Dictated and Authenticated by: Juanita Harper MD. Ordering:SE Causey MD
--- NOTE | 2023-01-27 21:13 | ED.GENADUL_ITS ---
Discharge Plan Disposition Patient Disposition: Home Discharge Details Clinical Impression: Contusion of left scapula Primary Care Provider: Deyanira Marcus ED Provider: Padilla Combs Home Meds and New Rx's Prescriptions: Continued docusate sodium 100 mg capsule 100 mg PO DAILY PRN bisacodyl [Dulcolax (bisacodyl)] 5 mg tablet,delayed release (DR/EC) 5 mg PO ONCE Qty: 4 0RF Rx Instructions: Take per colonoscopy instructions provided by ordering providers office polyethylene glycol 3350 17 gram/dose powder 17 g PO ONCE Qty: 238 0RF Rx Instructions: Take per colonoscopy instructions provided by ordering providers office oxybutynin chloride 5 mg tablet 5 mg PO BID PRN (Reason: bladder spasms) Qty: 60 0RF sumatriptan succinate 50 mg tablet See Rx Instructions PO .COMPLEX PRN Rx Instructions: take 1 tab at onset of headache; if no relief may repeat 1 tab after at least 2 hrs; max = 4 tabs/24 hr PO albuterol sulfate [ProAir HFA] 90 mcg/actuation HFA aerosol inhaler 2 inh inhalation Q6H PRN fluticasone propionate [Flovent HFA] 110 mcg/actuation HFA aerosol inhaler 1 inh inhalation BID ursodiol 200 mg capsule 250 mg PO DAILY magnesium L-lactate [Magtab] 84 mg tablet extended release 84 mg PO DAILY biotin 1 mg capsule 1 mg PO BID divalproex 250 mg tablet,delayed release (DR/EC) 250 mg PO BID pbjbqnyqkufm-Ax-kunu-minerals 18-0.4 mg tablet 1 tab PO DAILY bupropion HCl 300 mg tablet extended release 24 hr 300 mg PO QAM cholecalciferol (vitamin D3) 50 mcg (2,000 unit) capsule 50 mcg PO DAILY glyburide 5 mg tablet 5 mg PO DAILY ibuprofen 600 mg tablet 600 mg PO Q8H PRN lisinopril 5 mg tablet 5 mg PO DAILY metoclopramide HCl 10 mg tablet 10 mg PO QAC Rx Instructions: administer 30 minutes before meals trazodone 50 mg tablet 50 mg PO QHS PRN pantoprazole 40 mg Tablet,Delayed Release (Dr/Ec) 40 mg PO DAILY loratadine 10 mg capsule 10 mg PO DAILY PRN sucralfate [Carafate] 100 mg/mL suspension 10 ml PO BID Qty: 200 1RF acetaminophen 500 mg tablet 500 mg PO Q6H PRN (Reason: pain) Qty: 60 0RF tramadol 50 mg tablet 50 mg PO Q6H MDD 4 PRN (Reason: pain) Qty: 20 0RF Rx Instructions: may take along with Tylenol Discharge Instructions Instructions: Contusion in Adults (ED) Additional Instructions: At this time we are not seeing any broken bones or abnormalities to your left scapula or visible shoulder. If you have any new or significant worsening of symptoms feel free to return the emergency department for reassessment. Wear sling as needed for discomfort but please remove at least 3 times daily to perform gentle range of motion as discussed. You may continue to take your normally prescribed pain medication along with any ewrt-dxo-ucevpuq medications that you normally take. You may also apply ice to the area to help with discomfort. Follow-up with your primary care provider if not improving over the next 1 to 2 weeks. Referrals: Deyanira Marcus [Primary Care Provider] - 2 weeks (As needed for reassessment) Discharge Data Discharge Date/Time-TO BE ENTERED AT DEPARTURE: 01/27/23 21:25 Medical Decision Making Patient presenting to the emergency department for chief complaint of left posterior shoulder injury. She states an accidental fall down the steps which she landed on her posterior left shoulder. She denies any head neck or back pain but all the pain seems to be into her scapula. Patient denies chest pain difficulty breathing but there is pain on inspiration. Physical exam shows specific tenderness to palpation of the scapula and some of the use tissue surrounding it but this is lessened. Physical exam is otherwise unremarkable, clear lung sounds, normal cardiac exam, full range of motion of the shoulder, distal to injury no abnormalities noted. We will plan on performing radiological imaging of the scapula. Patient states she does not need any pain medication pending results that she had taken [id number]-zlpwksb's before arrival. Patient was given a sling for discomfort Reviewed radiological imaging along with radiologist interpretation that shows no worrisome findings. Patient instructed on sling use for comfort but also that she should continue range of motion, continue juty-qkp-vdnwqoj pain medication, and return for new or worsening symptoms otherwise follow-up with primary care provider if not improving. After discussion of diagnosis and plan of care patient has no further needs, questions, or concerns and states clear understanding to return to the emergency department for any worsening symptoms. This documentation was generated using [employer] dictation system, please disregard any oddities of phrase or misspellings. Imaging Data Radiologic Study: Imaging: X-Ray Radiologist's impression: Exam(s) PROCEDURE INFORMATION: Exam: XR Left Scapula Exam date and time: 01/27/2023 20:21 Age: 42 years old Clinical indication: Injury or trauma; Fall; Blunt trauma (contusions or hematomas); Shoulder; Left; Patient HX: Scapula pain TECHNIQUE: Imaging protocol: Radiologic exam of the left scapula. Complete exam. COMPARISON: CR XR CHEST 2V PA LATERAL 12/17/2021 12:32 FINDINGS: Bones/joints: The scapula is intact. No acute fracture or subluxation. Soft tissues: Normal. IMPRESSION: The scapula is intact. HPI General Mode of arrival: ambulatory . Date/Time Provider Initiated Documentation: 01/27/23 19:00 . Limitations to Documentation: no limitations . Information obtained by: patient and RN notes reviewed . History of Present Illness 42 year old F presents to the emergency department with the chief complaint of Left shoulder/back pain, described as moderate, Quality is described as aching and sharp, and is localized to the left and upper extremity. Patient reports no radiation. and it has been constant. Immobilization improves symptom(s), Movement worsens symptoms . Patient notes no other symptoms.. Patient did receive the following treatments prior to arrival, NSAID Related Data Home Medications Medication Instructions Recorded Confirmed pantoprazole 40 mg tablet,delayed 40 mg PO DAILY 05/11/19 01/27/23 release docusate sodium 100 mg capsule 100 mg PO DAILY PRN 08/30/19 01/27/23 sumatriptan succinate 50 mg tablet See Rx Instructions PO .COMPLEX PRN 11/27/19 01/27/23 acetaminophen 500 mg tablet 500 mg PO Q6H PRN pain #60 tabs 05/28/20 01/27/23 loratadine 10 mg capsule 10 mg PO DAILY PRN 01/21/21 01/27/23 albuterol sulfate 90 mcg/actuation 2 inh inhalation Q6H PRN 03/23/21 01/27/23 aerosol inhaler (ProAir HFA) fluticasone propionate 110 1 inh inhalation BID 03/23/21 01/27/23 mcg/actuation HFA aerosol inhaler (Flovent HFA) biotin 1 mg capsule 1 mg PO BID 10/22/21 01/27/23 divalproex 250 mg tablet,delayed 250 mg PO BID 10/22/21 01/27/23 release magnesium L-lactate 84 mg 84 mg PO DAILY 10/22/21 01/27/23 tablet,extended release (Magtab) vpgjpwyeukjk-Ff-hzux-minerals 18 1 tab PO DAILY 10/22/21 01/27/23 mg-0.4 mg tablet ursodiol 200 mg capsule 250 mg PO DAILY 10/22/21 01/27/23 sucralfate 100 mg/mL oral 10 ml PO BID #200 mL 12/17/21 01/27/23 suspension (Carafate) tramadol 50 mg tablet 50 mg PO Q6H PRN pain #20 tabs 02/25/22 01/27/23 bisacodyl 5 mg tablet,delayed 5 mg PO ONCE #4 tabs 01/20/23 01/27/23 release (Dulcolax (bisacodyl)) bupropion HCl 300 mg 24 hr tablet, 300 mg PO QAM 01/20/23 01/27/23 extended release cholecalciferol (vitamin D3) 50 50 mcg PO DAILY 01/20/23 01/27/23 mcg (2,000 unit) capsule glyburide 5 mg tablet 5 mg PO DAILY 01/20/23 01/27/23 ibuprofen 600 mg tablet 600 mg PO Q8H PRN 01/20/23 01/27/23 lisinopril 5 mg tablet 5 mg PO DAILY 01/20/23 01/27/23 metoclopramide HCl 10 mg tablet 10 mg PO QAC 01/20/23 01/27/23 oxybutynin chloride 5 mg tablet 5 mg PO BID PRN bladder spasms #60 01/20/23 01/27/23 tabs polyethylene glycol 3350 17 17 g PO ONCE #238 grams 01/20/23 01/27/23 gram/dose oral powder trazodone 50 mg tablet 50 mg PO QHS PRN 01/20/23 01/27/23 Previous Rx's Medication Instructions Recorded acetaminophen 500 mg tablet 500 mg PO Q6H PRN pain #60 tabs 05/28/20 sucralfate 100 mg/mL oral 10 ml PO BID #200 mL 12/17/21 suspension (Carafate) tramadol 50 mg tablet 50 mg PO Q6H PRN pain #20 tabs 02/25/22 bisacodyl 5 mg tablet,delayed 5 mg PO ONCE #4 tabs 01/20/23 release (Dulcolax (bisacodyl)) oxybutynin chloride 5 mg tablet 5 mg PO BID PRN bladder spasms #60 01/20/23 tabs polyethylene glycol 3350 17 17 g PO ONCE #238 grams 01/20/23 gram/dose oral powder Allergies Allergy/AdvReac Type Severity Reaction Status Date / Time amoxicillin Allergy Severe trouble Verified 01/27/23 18:35 breathing and a rash artichoke Allergy Severe ANAPHYLAXIS Verified 01/27/23 18:35 Penicillins Allergy Intermediate HIVES Verified 01/27/23 18:35 sodium hypochlorite solution Allergy Intermediate HIVES/SOB Verified 01/27/23 18:35 [sodium hypochlorite] adhesive tape Allergy Mild Skin Rash Unverified 01/27/23 18:35 General Stated Complaint: Orthopedic MIKE: 3 Review of Systems Constitutional Constitutional: Denies daytime sleepiness, Denies headache(s) and Denies malaise Eyes Eyes: Denies change in vision ENT Ears, Nose, Mouth, and Throat: Denies facial pain, Denies headache(s) and Denies neck pain Cardiovascular Cardiovascular: Denies chest pain and Denies dyspnea Respiratory Respiratory: Reports pain on inspiration and Denies dyspnea Gastrointestinal Gastrointestinal: Denies abdominal pain, Denies nausea and Denies vomiting Musculoskeletal Musculoskeletal: Reports as per HPI, Denies back pain, Reports arthralgias, Denies joint swelling, Denies limited range of motion, Denies neck pain, Denies numbness and Denies tingling Integumentary/Breasts Skin/Breast: Denies unusual bruising and Denies wounds Neurologic Neurologic: Denies headache(s), Denies numbness and Denies tingling PFSH All Active Problems Contusion of left scapula (Acute) Psychogenic nonepileptic seizure (Acute) Screening for colon cancer (Acute) Bilateral kidney stones (Acute) Arm paresthesia, right (Acute) Anxiety and depression (Acute 02/12/14) Diabetes (Acute 02/12/14) diet controlled Elevated lipids (Acute 02/12/14) Migraine (Acute 02/12/14) Numbness of left hand (Acute 07/04/17) Tubular adenoma of colon (Acute 11/26/16) Carpal tunnel syndrome on both sides (Acute) Medial epicondylitis, left elbow (Acute) CHAPARRO (nonalcoholic steatohepatitis) (Acute) Viral illness (Acute) Migraine headache without aura (Acute) Right lateral epicondylitis (Acute) Medial epicondylitis, right elbow (Acute) Cubital tunnel syndrome on right (Acute) Right wrist sprain (Acute) Contusion of right forearm (Acute) Sprain of right elbow (Acute) Bradycardia (Acute) Vomiting (Acute) Hematemesis (Acute) Sinus bradycardia (Acute) Hypokalemia (Acute) Fall (Acute) Seizure disorder (Chronic) Bipolar 1 disorder (Acute) Gastric bypass status for obesity (Acute) Chest pain (Acute) Left ankle sprain (Acute) Medical History Adrenal abnormality Anxiety and depression Asthma Cervical cancer Chronic back pain Cubital tunnel syndrome Depressive disorder Diabetes mellitus, type 2 Elevated lipids Family history of attention deficit hyperactivity disorder GERD (gastroesophageal reflux disease) Hypertension Kidney stone Lumbar disc herniation Macromastia Medial epicondylitis of elbow Migraine Obesity Obstructive sleep apnea syndrome pt. states she does not have this anymore r/t to gastric bypass Polycystic ovaries Snoring Spinal stenosis Surgical History anterior cruciate ligament reconstruction section twice Colonoscopy - MAC (11/26/16) Cubital tunnel syndrome on left (09/14/17) 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 (Date of Surgery: 03/02/18 and 10/02/2019) EGD - MAC (11/26/16) Endoscopic Carpal Tunnel release (01/14/09) 09/16/2010 REPEAT ECTR RIGHT H/O gastric bypass History of lumbar surgery Pt reports lower back disc, rods and screws 5 years ago, 2017' Ligation of fallopian tube Open Carpal Tunnel release (10/23/12) RIGHT SIDE, left 8.14.14 Vaginal hysterectomy Social History Smoking/Tobacco Use Status: Former Tobacco Use Quit Date: 08/01/05 Smoking risk assessment performed?: Yes Alcohol Intake: never Drug use: Never Substance use type: does not use Household members: spouse and children Housing: other Details: trailer Current gender identity: female What is your relationship status?: Panel score (0-1 are the most socially isolated patients): 1 Seatbelt use: always Do you feel safe at home: Yes Do you feel safe in your relationship?: Yes Exam Const General: cooperative, no acute distress and not ill appearing Orientation: alert, awake and oriented x3 HENMT Mouth: moist mucous membranes Chest Chest: no localized rib tenderness Resp Effort & Inspection: normal respiratory effort, able to speak in complete sentences and no respiratory distress Auscultation: clear to auscultation bilaterally Cardio Rate: regular rate Rhythm: regular rhythm Heart Sounds: S1 normal and S2 normal Back/Spine/Pelvis Thoracic/Lumbar Spine: No thoracic spinal tenderness Skin General skin exam: no rashes or lesions noted Neuro General: patient alert, patient awake, patient oriented x3, moves all extremities and no focal motor deficits Sensory Exam: no sensory deficits noted Course Vital Signs Vital signs: Vital Signs Temperature 36.8 C 01/27/23 18:28 Pulse 53 L 01/27/23 18:28 Respiratory Rate 18 01/27/23 18:28 Blood Pressure 106/53 L 01/27/23 18:28 Pulse Oximetry 100 01/27/23 18:28 Temperature 36.8 C 01/27/23 18:28 Temperature Source Oral 01/27/23 18:28 Pulse 53 L 01/27/23 18:28 Respiratory Rate 18 01/27/23 18:28 Respiratory Effort Normal, Non-Labored 01/27/23 18:33 Blood Pressure 106/53 L 01/27/23 18:28 Blood Pressure Position Sitting 01/27/23 18:28 Pulse Oximetry 100 01/27/23 18:28 Oxygen Delivery Method Room Air 01/27/23 18:28 Oxygen Flow Rate 0 01/27/23 18:28
[2023-01-27 21:25] VITALS: PULSE 80; O2SAT 96
== END 2023-01-27 21:25 | disposition home or self-care (01) ==
PROVIDERS: Emergency Provider Nurse Practitioner Family; PCP Nurse Practitioner Family
DX: S40.012A Contusion of left shoulder, initial encounter (principal); W10.9XXA Fall (on) (from) unspecified stairs and steps, initial encounter
CPT/HCPCS: 99283; 73010

== ENCOUNTER 2023-02-18 07:13 | Day surgery (SDC) | payer MEDICAID, SELFPAY ==
--- NOTE | 2023-02-17 15:35 | W.COLOREPORT ---
Date of service: 02/18/23 Time of Service: 09:04 Colonoscopy Report Date of procedure: 02/18/23 Pre-op diagnosis general: Adenomatous polyps Post-op diagnosis procedure note: same Surgeon: Desirae Lewis Anesthesia Type: General:No Airway Estimated blood loss (mL): 1 Pathology: other Complications: None Disposition: same day Prep: Miralax/Dulcolax Retraction Time: 10 Procedure Description: After informed consent was obtained the patient was taken to the procedure room and placed in a left decubitous position. Monitors were applied and a time out was done. The patients name, date of , procedure, allergies to medications and metal in their body was reviewed. The patient was then sedated. Once sedated and comfortable a rectal exam was done. External exam was normal. Internal exam revealed a normal sphincter tone and no palpable masses. The scope was then introduced and retrofelexed. No internal hemorrhoids were identified. The scope was then advanced to the cecum w/out difficulty. The TI and appendiceal orifice were identified. The prep was BBPS 3 in all segments for total of 9. The scope was then slowly retracted over 10 minutes back into the rectum. There are no AVMs or diverticula visualized today. She has a 0.4 cm polyp in the rectum that is removed with a cold biopsy forcep. All specimen is retrieved and no bleeding is noted. There are no AVMs or polyps visualized today. The scope was removed and the patient was woken up and taken back to Same day surgery in stable condition. The patient tolerated the procedure well and there were no immediate complications. Follow up: The patient should follow up in 5-7 years unless they develop changes in bowel habits or other new gastrointestinal complaints.
--- NOTE | 2023-02-17 15:36 | PDOC.DSDIS_ITS ---
Date of service: 02/18/23 Time of Service: 09:06 Discharge Plan Disposition Patient Disposition: Home Condition: Good Discharge Details Reason For Visit: Colon scope Attending Provider: Desirae Lewis Primary Care Provider: Deyanira Marcus Home Meds and New Rx's Prescriptions: Continued docusate sodium 100 mg capsule 100 mg PO DAILY PRN oxybutynin chloride 5 mg tablet 5 mg PO BID PRN (Reason: bladder spasms) Qty: 60 0RF sumatriptan succinate 50 mg tablet See Rx Instructions PO .COMPLEX PRN Rx Instructions: take 1 tab at onset of headache; if no relief may repeat 1 tab after at least 2 hrs; max = 4 tabs/24 hr PO albuterol sulfate [ProAir HFA] 90 mcg/actuation HFA aerosol inhaler 2 inh inhalation Q6H PRN fluticasone propionate [Flovent HFA] 110 mcg/actuation HFA aerosol inhaler 1 inh inhalation BID ursodiol 200 mg capsule 250 mg PO DAILY magnesium L-lactate [Magtab] 84 mg tablet extended release 84 mg PO DAILY biotin 1 mg capsule 1 mg PO BID divalproex [Depakote] 250 mg tablet,delayed release (DR/EC) 250 mg PO BID tvtjtoqieirz-Aw-unsr-minerals 18-0.4 mg tablet 1 tab PO DAILY bupropion HCl 300 mg tablet extended release 24 hr 300 mg PO QAM cholecalciferol (vitamin D3) 50 mcg (2,000 unit) capsule 50 mcg PO DAILY glyburide 5 mg tablet 5 mg PO DAILY ibuprofen 600 mg tablet 600 mg PO Q8H PRN lisinopril 5 mg tablet 5 mg PO DAILY metoclopramide HCl 10 mg tablet 10 mg PO QAC Rx Instructions: administer 30 minutes before meals trazodone 50 mg tablet 50 mg PO QHS PRN pantoprazole 40 mg Tablet,Delayed Release (Dr/Ec) 40 mg PO DAILY loratadine 10 mg capsule 10 mg PO DAILY PRN sucralfate [Carafate] 100 mg/mL suspension 10 ml PO BID Qty: 200 1RF acetaminophen 500 mg tablet 500 mg PO Q6H PRN (Reason: pain) Qty: 60 0RF tramadol 50 mg tablet 50 mg PO Q6H MDD 4 PRN (Reason: pain) Qty: 20 0RF Rx Instructions: may take along with Tylenol Discontinued bisacodyl [Dulcolax (bisacodyl)] 5 mg tablet,delayed release (DR/EC) 5 mg PO ONCE Qty: 4 0RF Rx Instructions: Take per colonoscopy instructions provided by ordering providers office polyethylene glycol 3350 17 gram/dose powder 17 g PO ONCE Qty: 238 0RF Rx Instructions: Take per colonoscopy instructions provided by ordering providers office Discharge Instructions Additional Instructions: DSU Colonoscopy Post- Op Instructions Instructions for Everyone who is given Anesthesia: For your safety, please do the following for the next twenty-four (24) hours: *Do Not operate a motor vehicle (car, truck, motorcycle, etc.) *Do Not drink alcoholic beverages or use any recreational drugs for the first 24 hours or while taking pain medications. The medications in your body may have a reaction that can be dangerous. *Do Not make any important decisions or sign any important papers. Findings: x1 small polyp Follow up: My office will send a letter in 2 to 3 weeks with the results of the biopsies and when we want you to repeat the colonoscopy, most likely 7 years time. 1. No lifting over 20 pounds or strenuous activity for the first 24 hours after your procedure. After 24 hours there are no restrictions on your activity but you may feel fatigued for a few days. 2. After you arrive home you may have a light meal and return to your normal diet as you can tolerate it without feeling sick to your stomach. 3. You may have a bloated, gaseous feeling in your belly (abdomen) after a colonoscopy. Passing gas and belching will help. Walking or lying down on your left side with your knees flexed may relieve the discomfort. Call the office at [phone] (Office) or [phone] (Hospital) right away if you notice any of the following: a.Vomiting of blood or ?coffee ground stools?. b.Rectal bleeding 1Tbsp, blood clots or continuous bleeding. c.Severe belly (abdominal) pain. d.A hard distended belly (abdomen) and an inability to pass gas. 4. Please don?t expect to have a normal BM (bowel movement) for 2-3 days after your procedure. 5. If there are questions regarding the findings of your procedure, please contact your doctor 6. If you are unable to contact your doctor with a problem, contact the hospital at [phone]. 7. Continue all your regular medications unless directed otherwise. I understand the above instructions and have no questions. Signature of Patient or Adult Escort Name of Responsible Adult Escort Signature of Nurse Date/Time Activity:: See above Diet:: See above Discharge Orders Discharge Orders: Discharge Order (Routine); Ordered 02/18/23 Ordered By: Desirae Lewis DS: Diagnosis Discharge Diagnosis (1) Diabetes: Status: Acute (2) Tubular adenoma of colon: Status: Acute Asessment and Plan: The patient is seen and examined after their colonoscopy.? The patient has been able to pass gas.? They are not having abdominal pain.? They have been able to tolerate liquids and a snack.? They do not have any nausea or vomiting.? They are not having any chest pain or shortness of breath.??? They are not having any rectal bleeding. Their vital signs have been stable-see nursing notes. We discussed findings during their colonoscopy, and any biopsies that were done/polyps that were removed. The patient will be sent a letter with any biopsy results, and when to repeat the colonoscopy.-see discharge instructions. Patient was given explicit instructions to follow-up regarding colonoscopy-refer to discharge instructions.? We reviewed resumption of medications. Patient verbalized understanding and discharged in stable and satisfactory condition- See nursing notes. (3) CHAPARRO (nonalcoholic steatohepatitis): Status: Acute (4) Seizure disorder: Status: Chronic (5) Bipolar 1 disorder: Status: Acute (6) Gastric bypass status for obesity: Status: Acute (7) Psychogenic nonepileptic seizure: Status: Acute (8) Asthma: (9) Depressive disorder: (10) Diabetes mellitus, type 2: (11) Elevated lipids: (12) Family history of attention deficit hyperactivity disorder: (13) GERD (gastroesophageal reflux disease): (14) Hypertension: (15) Obstructive sleep apnea syndrome:
--- NOTE | 2023-02-17 17:57 | ANES.PREOP_ITS ---
General Info Date of Service Date Performed: 02/18/23 Height: 5 ft 6 in Weight: 71.214 kg Body Mass Index (BMI): 25.3 Surgical Procedure: Operation Date: 02/18/23 08:20 Proposed Procedure Side Surgeon miya Lewis, Meds Allergies and Home Medications Allergies Allergy/AdvReac Type Severity Reaction Status Date / Time amoxicillin Allergy Severe trouble Verified 02/18/23 07:27 breathing and a rash artichoke Allergy Severe ANAPHYLAXIS Verified 02/17/23 10:14 Penicillins Allergy Intermediate HIVES Verified 02/18/23 07:27 sodium hypochlorite solution Allergy Intermediate HIVES/SOB Verified 02/18/23 07:27 [sodium hypochlorite] adhesive tape Allergy Mild Skin Rash Verified 02/18/23 07:27 Home Medication Medication Instructions Recorded pantoprazole 40 mg tablet,delayed 40 mg PO DAILY 05/11/19 release docusate sodium 100 mg capsule 100 mg PO DAILY PRN 08/30/19 sumatriptan succinate 50 mg tablet See Rx Instructions PO .COMPLEX PRN 11/27/19 acetaminophen 500 mg tablet 500 mg PO Q6H PRN pain #60 tabs 05/28/20 loratadine 10 mg capsule 10 mg PO DAILY PRN 01/21/21 albuterol sulfate 90 mcg/actuation 2 inh inhalation Q6H PRN 03/23/21 aerosol inhaler (ProAir HFA) fluticasone propionate 110 1 inh inhalation BID 03/23/21 mcg/actuation HFA aerosol inhaler (Flovent HFA) biotin 1 mg capsule 1 mg PO BID 10/22/21 divalproex 250 mg tablet,delayed 250 mg PO BID 10/22/21 release (Depakote) magnesium L-lactate 84 mg 84 mg PO DAILY 10/22/21 tablet,extended release (Magtab) pljatypeugky-Sy-sxax-minerals 18 1 tab PO DAILY 10/22/21 mg-0.4 mg tablet ursodiol 200 mg capsule 250 mg PO DAILY 10/22/21 sucralfate 100 mg/mL oral 10 ml PO BID #200 mL 12/17/21 suspension (Carafate) tramadol 50 mg tablet 50 mg PO Q6H PRN pain #20 tabs 02/25/22 bupropion HCl 300 mg 24 hr tablet, 300 mg PO QAM 01/20/23 extended release cholecalciferol (vitamin D3) 50 50 mcg PO DAILY 01/20/23 mcg (2,000 unit) capsule glyburide 5 mg tablet 5 mg PO DAILY 01/20/23 ibuprofen 600 mg tablet 600 mg PO Q8H PRN 01/20/23 lisinopril 5 mg tablet 5 mg PO DAILY 01/20/23 metoclopramide HCl 10 mg tablet 10 mg PO QAC 01/20/23 oxybutynin chloride 5 mg tablet 5 mg PO BID PRN bladder spasms #60 01/20/23 tabs trazodone 50 mg tablet 50 mg PO QHS PRN 01/20/23 Current Visit Medications: Current Medications Generic Name Dose Route Start Last Admin Trade Name Freq PRN Reason Stop Dose Admin Hyoscyamine Sulfate 0.125 mg 02/18/23 06:54 Hyoscyamine 0.125 Mg Sl/Oral/Chew SL 03/20/23 06:53 DIRECTED PRN Ringer's Solution 1,000 mls @ 80 mls/hr 02/18/23 06:00 IV 02/18/23 23:59 [facility]ION [facility] IV Miscellaneous Supplies 1 each 02/18/23 06:00 Iv Access IV 02/18/23 23:59 DIRECTED CORKY Ondansetron HCl 4 mg 02/18/23 06:54 Ondansetron 4 Mg/2 Ml Vial IVP 03/20/23 06:53 Q4H PRN PRN Nausea / Vomiting Sodium Chloride 0 ml 02/18/23 06:00 Normal Saline Flush 10 Ml Syr IV 02/18/23 23:59 PRN PRN Sodium Chloride 0 ml 02/18/23 06:00 Normal Saline 10 Ml Vial IJ 02/18/23 23:59 DIRECTED PRN Sterile Water 0 ml 02/18/23 06:00 Water,Injection,Sterile 10 Ml Vial IJ 02/18/23 23:59 DIRECTED PRN PFSH Active Problems Active Problems: Problem Status Onset Code Anxiety and depression 02/12/14 F41.9, F32.9 Diabetes 02/12/14 E11.9 Elevated lipids 02/12/14 E78.5 Migraine 02/12/14 G43.909 Numbness of left hand 07/04/17 R20.0 Tubular adenoma of colon 11/26/16 D12.6 Carpal tunnel syndrome on both sides G56.03 Medial epicondylitis, left elbow M77.02 CHAPARRO (nonalcoholic steatohepatitis) K75.81 Viral illness B34.9 Migraine headache without aura G43.009 Right lateral epicondylitis M77.11 Medial epicondylitis, right elbow M77.01 Cubital tunnel syndrome on right G56.21 Right wrist sprain S63.501A Contusion of right forearm S50.11XA Sprain of right elbow S53.401A Bradycardia R00.1 Vomiting R11.10 Hematemesis K92.0 Sinus bradycardia R00.1 Hypokalemia E87.6 Fall W19.XXXA Seizure disorder G40.909 Bipolar 1 disorder F31.9 Gastric bypass status for obesity Z98.84 Chest pain R07.9 Left ankle sprain S93.402A Arm paresthesia, right R20.2 Bilateral kidney stones N20.0 Screening for colon cancer Z12.11 Psychogenic nonepileptic seizure F44.5 Contusion of left scapula S40.012A Medical History Medical History Absence seizure Pt. states they happened more when she was overweight, has not had one in 1.5 years Adrenal abnormality Anxiety and depression Asthma Cervical cancer Chronic back pain Cubital tunnel syndrome Depressive disorder Diabetes mellitus, type 2 Elevated lipids Family history of attention deficit hyperactivity disorder GERD (gastroesophageal reflux disease) Hypertension Kidney stone Lumbar disc herniation Macromastia Medial epicondylitis of elbow Migraine Obesity Obstructive sleep apnea syndrome pt. states she does not have this anymore r/t to gastric bypass Polycystic ovaries Snoring Spinal stenosis Medical History Comments:: adhesive tape allergy Surgical History Surgical History anterior cruciate ligament reconstruction section twice Colonoscopy - MAC (11/26/16) Cubital tunnel syndrome on left (09/14/17) 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 (Date of Surgery: 03/02/18 and 10/02/2019) EGD - MAC (11/26/16) Endoscopic Carpal Tunnel release (01/14/09) 09/16/2010 REPEAT ECTR RIGHT H/O gastric bypass History of lumbar surgery Pt reports lower back disc, rods and screws 5 years ago, 2017' Ligation of fallopian tube Open Carpal Tunnel release (10/23/12) RIGHT SIDE, left 8.14.14 Vaginal hysterectomy Tobacco Smoking/Tobacco Use Status: Former Tobacco Use Alcohol Alcohol Intake: never Substance Use Substance use: Never Substance use type: does not use Vital Signs and Lab Results Vital Signs Most Recent Vital Signs in EMR: Temp Pulse Resp BP Pulse Ox 36.4 C L 53 L 16 104/49 L 100 02/18/23 07:02/18/23 07:02/18/23 07:02/18/23 07:31 02/18/23 07:31 Lab Results Blood Type / Crossmatch: No Data to Display Complete Blood Count: No Data to Display Complete Metabolic Panel: No Data to Display Liver Function Panel: No Data to Display Coagulation Panel: No Data to Display Cardiac Panel: No Data to Display Arterial Blood Gas: No Data to Display Venous Blood Gas: No Data to Display Pancreas Panel: No Data to Display Thyroid Panel: No Data to Display Infectious Disease: No Data to Display Blood Cultures: No Data to Display Toxicology Panel: No Data to Display Panel: No Data to Display Imaging and Studies Imaging and Studies Study information below may be from another EMR and interpreted by another provider. Please see original notes in EMR for more complete details. EKG Summary: 12/20: sinus dara. Anesthesia Assessment and Plan Anesthesia History Personal History: No History of Anesthesia Complications Family History: No Family History of Anesthesia Complications Exercise Tolerance Exercise Tolerance: Metabolic Equivalents>4 Cardiac & Pulmonary Exam Cardiac Exam: Normal S1/S2 Heart Sounds Pulmonary Exam: Clear Bilateral Breath Sounds Implantable Cardiac Device Does patient have a Pacemaker or an ICD?: No Airway Exam Known Difficult Airway: No Mallampati Class: 2 Mouth Opening: Normal (> 3cm) Thyromental Distance: Greater than 3 cm Neck Range of Motion: Full ROM Neck Circumference: Normal Teeth Condition: Normal Dentition ASA Classification ASA Score: ASA 2 Emergency Case?: No NPO Status NPO Status: NPO Clears >2 hours, Solids >8 hours Status Status: History of Hysterectomy Anesthesia Plan Resuscitation Status: Full Code Anesthesia Technique: General Anesthesia Airway Planned: Natural Airway Monitors Used: Standard Monitors Preoperative Comments:: 42 yo female for colo. Sig PMHx: asthma, HTN, DM, CHAPARRO, absence SZ, s/p GBypass, Previous Anes: - EGD/colo, fent, midaz, prop, natural airway no issues. - LMA 5 - LMA 4 - LMA 3
[2023-02-18 07:31] VITALS: BP 104/49; PULSE 53; RESP 16; TEMP 36.4; O2SAT 100
[2023-02-18] MEDS: Lactated Ringers 1,000 ML 80 ML IV (07:43)
[2023-02-18 08:20] VITALS: BMI 25.3
--- NOTE | 2023-02-18 08:54 | BOWEL_PTH ---
PATIENT: Dawn Nye LOC: [facility] U#:[id number] AGE/SX: 42/F ROOM: RE02/18/[address]: Desirae Lewis : 1980 BED: DIS: 02/18/2023 SPEC #: [id number] RECD: 02/18/23 10:07 STATUS: BHANU REQ #: [id number] AMY: 02/18/23 08:[address]: Desirae Lewis DEPT: Surgical Specimen RECD BY: Brittany Watson ENTERED: 02/18/23 10:09 SP TYPE: Bowel OTHR DR: Deyanira Marcus Tissues: 1 - BIOPSY BOWEL Procedures: GROSS AND MICRO LEVEL 4 Comments: [id number]
[2023-02-18 08:58] VITALS: BP 116/63; PULSE 52; RESP 16; TEMP 36.8; O2SAT 100
--- NOTE | 2023-02-18 09:29 | W.ANESPOSTOP ---
Postoperative Evaluation Date, Time and Location Date Performed: 02/18/23 Time Performed: 09:29 Patient Location: Day Surgery Unit Vital Signs Most Recent Imported Vital Signs: Most Recent Vital Signs Temp Pulse Resp BP Pulse Ox 36.8 C 52 L 16 116/63 100 02/18/23 08:58 02/18/23 08:58 02/18/23 08:58 02/18/23 08:58 02/18/23 08:58 Pain Score Most Recent Pain Score: Most Recent Pain Score Pain Level 0 02/18/23 08:58 Assessment Mental Status: Awake (Alert & Oriented to Patient Baseline) Airway and Respiratory Function: Patent airway with normal (patient baseline) respiratory exam Cardiovascular Function: Hemodynamically Stable Hydration Status: Adequately Hydrated Nausea & Vomiting: No Nausea or Vomiting Pain: Pt. Denies Any Pain Peripheral Nerve Block: Patient did not receive a nerve block
[2023-02-18 09:30] VITALS: BP 118/78; PULSE 78; RESP 18; TEMP 36.6; O2SAT 98
== END 2023-02-18 09:47 | disposition home or self-care (01) ==
PROVIDERS: PCP Nurse Practitioner Family; Visit Provider Surgery
PROC: 0DJD8ZZ Inspection of Lower Intestinal Tract, Via Natural or Artificial Opening Endoscopic (ICD-10-PCS; CPT 45378; principal; 2023-02-18 08:15)
DX: Z12.11 Encounter for screening for malignant neoplasm of colon (principal); K62.1 Rectal polyp; E11.9 Type 2 diabetes mellitus without complications; G40.909 Epilepsy, unspecified, not intractable, without status epilepticus; J45.909 Unspecified asthma, uncomplicated; Z86.010 Personal history of colon polyps
CPT/HCPCS: 45380; 88305

== ENCOUNTER 2023-03-09 18:39 | Emergency (ER) | payer MEDICAID, SELFPAY ==
[2023-03-09 18:41] VITALS: BP 107/58; PULSE 54; RESP 16; TEMP 36.7; O2SAT 100
[2023-03-09 18:56] LABS: Bilirubin Small (Negative); Blood Negative (Negative); Clarity Clear (Clear); Glucose Negative (Negative); Ketones Negative (Negative); Leukocyte Esterase Negative (Negative); Nitrite Negative (Negative); Specific Gravity 1.025 (1.005-1.025)
[2023-03-09 19:05] LABS: Bacteria Rare HPF (Negative); C & S Indicated? No; Casts Negative LPF (Negative); Crystals Negative HPF (Negative); Epithelial Cells Rare HPF (Negative); Mucus Trace (Negative); RBC 0-2 HPF (0-2); WBC 0-2 HPF (0-5)
--- NOTE | 2023-03-09 19:12 | ED.GENADUL_ITS ---
Discharge Plan Disposition Patient Disposition: Home Condition: Good Discharge Details Clinical Impression: Muscle spasm, Back pain Primary Care Provider: Deyanira Marcus ED Provider: Sara Roca Home Meds and New Rx's Prescriptions: New cyclobenzaprine 5 mg tablet 5 mg PO TID PRNQty: 14 0RF Continued sumatriptan succinate 50 mg tablet See Rx Instructions PO .COMPLEX PRN Rx Instructions: take 1 tab at onset of headache; if no relief may repeat 1 tab after at least 2 hrs; max = 4 tabs/24 hr PO albuterol sulfate [ProAir HFA] 90 mcg/actuation HFA aerosol inhaler 2 inh inhalation Q6H PRN fluticasone propionate [Flovent HFA] 110 mcg/actuation HFA aerosol inhaler 1 inh inhalation BID ursodiol 200 mg capsule 250 mg PO DAILY magnesium L-lactate [Magtab] 84 mg tablet extended release 84 mg PO DAILY biotin 1 mg capsule 1 mg PO BID divalproex [Depakote] 250 mg tablet,delayed release (DR/EC) 250 mg PO BID atlvmubweivl-Gd-psyb-minerals 18-0.4 mg tablet 1 tab PO DAILY bupropion HCl 300 mg tablet extended release 24 hr 300 mg PO QAM cholecalciferol (vitamin D3) 50 mcg (2,000 unit) capsule 50 mcg PO DAILY glyburide 5 mg tablet 5 mg PO DAILY metoclopramide HCl 10 mg tablet 10 mg PO QAC Rx Instructions: administer 30 minutes before meals trazodone 50 mg tablet 50 mg PO QHS PRN oxybutynin chloride 5 mg tablet 5 mg PO BID PRN (Reason: bladder spasms) Qty: 60 0RF pantoprazole 40 mg Tablet,Delayed Release (Dr/Ec) 40 mg PO DAILY loratadine 10 mg capsule 10 mg PO DAILY PRN sucralfate [Carafate] 100 mg/mL suspension 10 ml PO BID Qty: 200 1RF acetaminophen 500 mg tablet 500 mg PO Q6H PRN (Reason: pain) Qty: 60 0RF tramadol 50 mg tablet 50 mg PO Q6H MDD 4 PRN (Reason: pain) Qty: 20 0RF Rx Instructions: may take along with Tylenol No Action docusate sodium 100 mg capsule 100 mg PO DAILY PRN ibuprofen 600 mg tablet 600 mg PO Q8H PRN lisinopril 5 mg tablet 5 mg PO DAILY Discharge Instructions Instructions: Muscle Spasm (ED), Back Pain (ED) Additional Instructions: Take tylenol at home over the counter for pain; follow the directions on the bottle. Take the flexeril up to every 8 hours as needed for pain. Call your primary care doctor tomorrow to schedule an appointment to follow up on your visit today. Return to the emergency department for new or worsening symptoms including intolerable pain, or if you have any other concerns. Stand Alone Forms: Work Release Referrals: Deyanira Marcus [Primary Care Provider] - Medical Decision Making 42yo F with hx DM, migraines, seizures, gastric bypass, presenting for acute bilateral flank pain. Vital signs reassuring, palpable paraspinal muscle spasm on exam. Given perlitic component as well as worsening of pain with urination, labs and urine ordered. CBC & CMP reassuring, no significant abnormalities. D- dimer negative; low suspicion for pulmonary embolism, would not pursue further with CT. UA with no RBC to suggest kidney stones and not infected. Given tylenol and flexeril for symptoms. Discharged home with short course of flexeril to follow up with PCP. Discharge instructions including return precautions were reviewed with patient who verbalized understanding. All questions were answered and they are in full agreement with the plan. Lab Data Labs: Laboratory Tests Range/Units 03/09/23 03/09/23 03/09/23 18:49 21:10 21:10 WBC Cancelled RBC Cancelled Hgb Cancelled Hct Cancelled MCV Cancelled MCH Cancelled MCHC Cancelled RDW Cancelled Plt Count Cancelled MPV Cancelled Immature Gran % Cancelled Neutrophils % Cancelled Band Neutrophils % Cancelled Lymphocytes % Cancelled Atypical Lymphs % Cancelled Monocytes % Cancelled Eosinophils % Cancelled Basophils % Cancelled Metamyelocytes % Cancelled Myelocytes % Cancelled Promyelocytes % Cancelled Other Cells % Cancelled Nucleated RBC % Cancelled Absolute Neutrophils Cancelled Absolute Lymphocytes Cancelled Absolute Monocytes Cancelled Absolute Eosinophils Cancelled Absolute Basophils Cancelled RBC Morphology Cancelled Polychromasia Cancelled Hypochromasia Cancelled Poikilocytosis Cancelled Basophilic Stippling Cancelled Anisocytosis Cancelled Microcytosis Cancelled Macrocytosis Cancelled Spherocytes Cancelled Tear Drop Cells Cancelled Ovalocytes Cancelled Stomatocytes Cancelled [place] Bodies Cancelled [place] Cells/Echinocytes Cancelled Acanthocytes (Spur) Cancelled Schistocytes Cancelled D-Dimer (<500) ng/mlFEU Sodium (136-145) mmol/L 146 H Potassium (3.5-5.1) mmol/L 4.0 Chloride (98-107) mmol/L 110 H Carbon Dioxide (21.0-32.0) mmol/L 24.8 Anion Gap (3-11) mmol/L 11.2 H BUN (7-18) mg/dL 8 Creatinine (0.55-1.02) mg/dL 0.5 L Est GFR (CKD-EPI 2020) (mL/min/1.73m2) 121.52 Glucose (74-106) mg/dL 79 Calcium (8.5-10.1) mg/dL 9.1 Total Bilirubin (0.2-1.0) mg/dL 0.4 AST (15-37) U/L 24 ALT (14-59) U/L 26 Alkaline Phosphatase (46-116) U/L 91 Total Protein (6.4-8.2) g/dL 7.4 Albumin (3.4-5.0) g/dL 3.8 Serum HCG, Qual Urine Color (Yellow) Yellow Urine Clarity (Clear) Clear Urine pH (5-8) 6.0 Ur Specific [place] (1.005-1.025) 1.025 Urine Protein (Negative) mg/dL Trace H Urine Ketones (Negative) mg/dL Negative Urine Blood (Negative) Negative Urine Nitrite (Negative) Negative Urine Bilirubin (Negative) Small H Urine Urobilinogen (Up to 0.2) mg/dL 2.0 H Ur Leukocyte Esterase (Negative) Negative Urine RBC (0-2) HPF 0-2 Urine WBC (0-5) HPF 0-2 Ur Epithelial Cells (Negative) HPF Rare Urine Crystals (Negative) HPF Negative Urine Bacteria (Negative) HPF Rare Urine Casts (Negative) LPF Negative Urine Mucus (Negative) Trace Ur Culture Indicated? No Urine Glucose (Negative) mg/dL Negative Range/Units 03/09/23 03/09/23 03/09/23 21:10 21:10 21:30 WBC 9.35 RBC 4.21 Hgb 12.1 Hct 36.0 MCV 86 MCH 28.7 MCHC 33.6 RDW 12.9 Plt Count 234 MPV 10.4 Immature Gran % 0.2 Neutrophils % 43.2 Band Neutrophils % Lymphocytes % 49.4 Atypical Lymphs % Monocytes % 6.5 Eosinophils % 0.4 Basophils % 0.3 Metamyelocytes % Myelocytes % Promyelocytes % Other Cells % Nucleated RBC % 0.0 Absolute Neutrophils 4.03 Absolute Lymphocytes 4.62 H Absolute Monocytes 0.61 Absolute Eosinophils 0.04 Absolute Basophils 0.03 RBC Morphology Polychromasia Hypochromasia Poikilocytosis Basophilic Stippling Anisocytosis Microcytosis Macrocytosis Spherocytes Tear Drop Cells Ovalocytes Stomatocytes [place] Bodies [place]ola Cells/Echinocytes Acanthocytes (Spur) Schistocytes D-Dimer (<500) ng/mlFEU 452 Sodium (136-145) mmol/L Potassium (3.5-5.1) mmol/L Chloride (98-107) mmol/L Carbon Dioxide (21.0-32.0) mmol/L Anion Gap (3-11) mmol/L BUN (7-18) mg/dL Creatinine (0.55-1.02) mg/dL Est GFR (CKD-EPI 2020) (mL/min/1.73m2) Glucose (74-106) mg/dL Calcium (8.5-10.1) mg/dL Total Bilirubin (0.2-1.0) mg/dL AST (15-37) U/L ALT (14-59) U/L Alkaline Phosphatase (46-116) U/L Total Protein (6.4-8.2) g/dL Albumin (3.4-5.0) g/dL Serum HCG, Qual Negative Urine Color (Yellow) Urine Clarity (Clear) Urine pH (5-8) Ur Specific [place] (1.005-1.025) Urine Protein (Negative) mg/dL Urine Ketones (Negative) mg/dL Urine Blood (Negative) Urine Nitrite (Negative) Urine Bilirubin (Negative) Urine Urobilinogen (Up to 0.2) mg/dL Ur Leukocyte Esterase (Negative) Urine RBC (0-2) HPF Urine WBC (0-5) HPF Ur Epithelial Cells (Negative) HPF Urine Crystals (Negative) HPF Urine Bacteria (Negative) HPF Urine Casts (Negative) LPF Urine Mucus (Negative) Ur Culture Indicated? Urine Glucose (Negative) mg/dL HPI General Mode of arrival: ambulatory . Date/Time Provider Initiated Documentation: 03/09/23 18:44 . Limitations to Documentation: no limitations . Information obtained by: patient . HPI Narrative: 42yo F with hx DM, migraines, seizures, gastric bypass, presenting for acute bilateral flank pain. Pain started this morning, intermittent mid-back pain radiating out bilaterally. She does not recall any injury or provoking factor. Worse with deep breaths. Some pain with urination, not burning but seems to make the back/flank pain worse. No hematuria. She is otherwise in her usual state of health with no fevers, chills, rash, nausea, vomiting, numbness, tingling, weakness, or other concerns. Related Data Home Medications Medication Instructions Recorded Confirmed pantoprazole 40 mg tablet,delayed 40 mg PO DAILY 05/11/19 03/09/23 release docusate sodium 100 mg capsule 100 mg PO DAILY PRN 08/30/19 03/09/23 sumatriptan succinate 50 mg tablet See Rx Instructions PO .COMPLEX PRN 11/27/19 03/09/23 acetaminophen 500 mg tablet 500 mg PO Q6H PRN pain #60 tabs 05/28/20 03/09/23 loratadine 10 mg capsule 10 mg PO DAILY PRN 01/21/21 03/09/23 albuterol sulfate 90 mcg/actuation 2 inh inhalation Q6H PRN 03/23/21 03/09/23 aerosol inhaler (ProAir HFA) fluticasone propionate 110 1 inh inhalation BID 03/23/21 03/09/23 mcg/actuation HFA aerosol inhaler (Flovent HFA) biotin 1 mg capsule 1 mg PO BID 10/22/21 03/09/23 divalproex 250 mg tablet,delayed 250 mg PO BID 10/22/21 03/09/23 release (Depakote) magnesium L-lactate 84 mg 84 mg PO DAILY 10/22/21 03/09/23 tablet,extended release (Magtab) lstmdscztqmv-Tm-pwbx-minerals 18 1 tab PO DAILY 10/22/21 03/09/23 mg-0.4 mg tablet ursodiol 200 mg capsule 250 mg PO DAILY 10/22/21 03/09/23 sucralfate 100 mg/mL oral 10 ml PO BID #200 mL 12/17/21 03/09/23 suspension (Carafate) tramadol 50 mg tablet 50 mg PO Q6H PRN pain #20 tabs 02/25/22 03/09/23 bupropion HCl 300 mg 24 hr tablet, 300 mg PO QAM 01/20/23 03/09/23 extended release cholecalciferol (vitamin D3) 50 50 mcg PO DAILY 01/20/23 03/09/23 mcg (2,000 unit) capsule glyburide 5 mg tablet 5 mg PO DAILY 01/20/23 03/09/23 ibuprofen 600 mg tablet 600 mg PO Q8H PRN 01/20/23 03/09/23 lisinopril 5 mg tablet 5 mg PO DAILY 01/20/23 03/09/23 metoclopramide HCl 10 mg tablet 10 mg PO QAC 01/20/23 03/09/23 trazodone 50 mg tablet 50 mg PO QHS PRN 01/20/23 03/09/23 oxybutynin chloride 5 mg tablet 5 mg PO BID PRN bladder spasms #60 02/28/23 03/09/23 tabs cyclobenzaprine 5 mg tablet 5 mg PO TID PRN #14 tabs 03/09/23 Previous Rx's Medication Instructions Recorded acetaminophen 500 mg tablet 500 mg PO Q6H PRN pain #60 tabs 05/28/20 sucralfate 100 mg/mL oral 10 ml PO BID #200 mL 12/17/21 suspension (Carafate) tramadol 50 mg tablet 50 mg PO Q6H PRN pain #20 tabs 02/25/22 oxybutynin chloride 5 mg tablet 5 mg PO BID PRN bladder spasms #60 02/28/23 tabs cyclobenzaprine 5 mg tablet 5 mg PO TID PRN #14 tabs 03/09/23 Allergies Allergy/AdvReac Type Severity Reaction Status Date / Time amoxicillin Allergy Severe trouble Verified 03/09/23 18:46 breathing and a rash artichoke Allergy Severe ANAPHYLAXIS Verified 03/09/23 18:46 Penicillins Allergy Intermediate HIVES Verified 03/09/23 18:46 sodium hypochlorite solution Allergy Intermediate HIVES/SOB Verified 03/09/23 18:46 [sodium hypochlorite] adhesive tape Allergy Mild Skin Rash Verified 03/09/23 18:46 General Stated Complaint: FlankPain MIKE: 3 Review of Systems Narrative: see HPI PFSH All Active Problems (Updated 03/09/23 @ 22:10 by Sara Roca MD) Muscle spasm (Acute) Back pain (Acute) Anxiety and depression (Acute 02/12/14) Diabetes (Acute 02/12/14) diet controlled Elevated lipids (Acute 02/12/14) Migraine (Acute 02/12/14) Numbness of left hand (Acute 07/04/17) Tubular adenoma of colon (Acute 11/26/16) Carpal tunnel syndrome on both sides (Acute) Medial epicondylitis, left elbow (Acute) CHAPARRO (nonalcoholic steatohepatitis) (Acute) Viral illness (Acute) Migraine headache without aura (Acute) Right lateral epicondylitis (Acute) Medial epicondylitis, right elbow (Acute) Cubital tunnel syndrome on right (Acute) Right wrist sprain (Acute) Contusion of right forearm (Acute) Sprain of right elbow (Acute) Bradycardia (Acute) Vomiting (Acute) Hematemesis (Acute) Sinus bradycardia (Acute) Hypokalemia (Acute) Fall (Acute) Seizure disorder (Chronic) Bipolar 1 disorder (Acute) Gastric bypass status for obesity (Acute) Chest pain (Acute) Left ankle sprain (Acute) Arm paresthesia, right (Acute) Bilateral kidney stones (Acute) Screening for colon cancer (Acute) Psychogenic nonepileptic seizure (Acute) Medical History (Updated 03/09/23 @ 22:10 by Sara Roca MD) Absence seizure Pt. states they happened more when she was overweight, has not had one in 1.5 years Adrenal abnormality Anxiety and depression Asthma Cervical cancer Chronic back pain Cubital tunnel syndrome Depressive disorder Diabetes mellitus, type 2 Elevated lipids Family history of attention deficit hyperactivity disorder GERD (gastroesophageal reflux disease) Hypertension Kidney stone Lumbar disc herniation Macromastia Medial epicondylitis of elbow Migraine Obesity Obstructive sleep apnea syndrome pt. states she does not have this anymore r/t to gastric bypass Polycystic ovaries Snoring Spinal stenosis Surgical History (Updated 02/18/23 @ 14:45 by Tamra Saab) anterior cruciate ligament reconstruction section twice Colonoscopy - MAC (02/18/23) 11/26/2016 Cubital tunnel syndrome on left (09/14/17) 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 (Date of Surgery: 03/02/18 and 10/02/2019) EGD - MAC (11/26/16) Endoscopic Carpal Tunnel release (01/14/09) 09/16/2010 REPEAT ECTR RIGHT H/O gastric bypass History of lumbar surgery Pt reports lower back disc, rods and screws 5 years ago, 2016' Ligation of fallopian tube Open Carpal Tunnel release (10/23/12) RIGHT SIDE, left 8.14.14 Vaginal hysterectomy Social History Smoking/Tobacco Use Status: Former Tobacco Use Quit Date: 08/01/05 Smoking risk assessment performed?: Yes Alcohol Intake: never Drug use: Never Substance use type: does not use Household members: spouse and children Housing: house Current gender identity: female What is your relationship status?: Panel score (0-1 are the most socially isolated patients): 1 Seatbelt use: always Do you feel safe at home: Yes Do you feel safe in your relationship?: Yes Exam Narrative Exam Narrative: General: Alert, well appearing, well nourished, in no acute distress. Head: Normocephalic, atraumatic Neck: Trachea midline, Neck supple. ENT: MMM. No oropharygeal lesions or exudate. Cardiac: RRR, no murmurs appreciated Resp: No respiratory distress. CTAB. Abd: Soft, non-distended, nontender : No suprapubic tenderness. No CVA tenderness. Back: Low-thoracic/high lumbar paraspinal muscle spasm palpable bilaterally, TTP. No midline tenderness. Extremities: No deformities. No peripheral edema. Neurologic: GCS 15. Moves all extremities freely against gravity Course Vital Signs Vital signs: Vital Signs Temperature 36.7 C 03/09/23 18:41 Pulse 54 L 03/09/23 18:41 Respiratory Rate 16 03/09/23 18:41 Blood Pressure 107/58 L 03/09/23 18:41 Pulse Oximetry 100 03/09/23 18:41 Temperature 36.7 C 03/09/23 18:41 Temperature Source Oral 03/09/23 18:41 Pulse 54 L 03/09/23 18:41 Respiratory Rate 16 03/09/23 18:41 Respiratory Effort Normal, Non-Labored 03/09/23 18:44 Blood Pressure 107/58 L 03/09/23 18:41 Blood Pressure Position Sitting 03/09/23 18:41 Pulse Oximetry 100 03/09/23 18:41 Oxygen Delivery Method Room Air 03/09/23 18:41 Oxygen Flow Rate 0 03/09/23 18:41 Pain Level 6 03/09/23 18:41 Lab/Test Results Lab/Test Results: Laboratory Tests Range/Units 03/09/23 18:49 Urine Color (Yellow) Yellow Urine Clarity (Clear) Clear Urine pH (5-8) 6.0 Ur Specific [place] (1.005-1.025) 1.025 Urine Protein (Negative) mg/dL Trace H Urine Ketones (Negative) mg/dL Negative Urine Blood (Negative) Negative Urine Nitrite (Negative) Negative Urine Bilirubin (Negative) Small H Urine Urobilinogen (Up to 0.2) mg/dL 2.0 H Ur Leukocyte Esterase (Negative) Negative Urine RBC (0-2) HPF 0-2 Urine WBC (0-5) HPF 0-2 Ur Epithelial Cells (Negative) HPF Rare Urine Crystals (Negative) HPF Negative Urine Bacteria (Negative) HPF Rare Urine Casts (Negative) LPF Negative Urine Mucus (Negative) Trace Ur Culture Indicated? No Urine Glucose (Negative) mg/dL Negative
[2023-03-09] MEDS: Acetaminophen 500 MG TAB 1000 MG PO (20:40)
[2023-03-09 21:36] LABS: ALT 26 U/L (14-59); AST 24 U/L (15-37); Albumin 3.8 g/dL (3.4-5.0); Alkaline Phosphatase 91 U/L (46-116); Anion Gap 11.2 mmol/L (3-11); BUN 8 mg/dL (7-18); Bilirubin, Total 0.4 mg/dL (0.2-1.0); CO2 24.8 mmol/L (21.0-32.0); CREATININE 0.5 mg/dL (0.55-1.02); Calcium 9.1 mg/dL (8.5-10.1); Chloride 110 mmol/L (98-107); Estimated GFR 121.52 (mL/min/1.73m2); Glucose 79 mg/dL (74-106); Sodium 146 mmol/L (136-145); Total Protein 7.4 g/dL (6.4-8.2)
[2023-03-09 21:38] LABS: Abs Immature Grans 0.02 10^3/uL (0.0-0.06); Absolute Basophil Count 0.03 10^3/uL (0.0-0.2); Absolute Eosinophil Count 0.04 10^3/uL (0.0-0.7); Absolute Lymphocyte Count 4.62 10^3/uL (1.2-3.4); Absolute Monocyte Count 0.61 10^3/uL (0.1-0.8); Absolute Neutrophil Count 4.03 10^3/uL (1.2-6.7); Basophils % 0.3; Eosinophils % 0.4; HGB 12.1 g/dL (11.2-15.7); Immature Grans % 0.2; Lymphocytes % 49.4; MCH 28.7 pg (27.0-33.0); MCHC 33.6 % (32.0-36.0); MCV 86 fL (80-95); MPV 10.4 fL (8.0-11.0); Monocytes % 6.5; Neutrophils % 43.2; Platelet Count 234 10^3/uL (130-400); RBC 4.21 10^6/uL (3.93-5.22); RDW 12.9 % (11.7-14.6); WBC 9.35 10^3/uL (4.4-10.8)
[2023-03-09 21:39] LABS: HCG Qual (Serum) Negative
[2023-03-09 21:58] LABS: D-Dimer 452 ng/mlFEU (<500)
[2023-03-09] MEDS: Cyclobenzaprine 10 MG TAB 5 MG PO (22:28)
[2023-03-09 22:40] VITALS: BP 121/60; PULSE 54; RESP 16; O2SAT 98
== END 2023-03-09 22:32 | disposition home or self-care (01) ==
PROVIDERS: Emergency Provider Student in an Organized Health Care Education/Training Program; PCP Nurse Practitioner Family
DX: M54.9 Dorsalgia, unspecified (principal); M62.838 Other muscle spasm
CPT/HCPCS: 36415; 80053; 99283; 81003; 81015; 84703; 85025; 85379; 99284

== ENCOUNTER 2023-04-07 14:33 | Emergency (ER) | payer MEDICAID, SELFPAY ==
[2023-04-07 14:36] VITALS: BP 111/55; PULSE 65; RESP 20; TEMP 36.8; O2SAT 97
--- NOTE | 2023-04-07 15:30 | DI.US_ITS ---
Exam(s) US RENAL EXAM: US RENAL CLINICAL HISTORY: hx of stones, flank pain right. TECHNIQUE: Abel scale, color and spectral Doppler were used. COMPARISON: US US RENAL from 05/18/2022 FINDINGS: Renal size in cm: Right: 10.9. Left: 9.6. Echogenicity: Normal. Hydronephrosis: There is mild right hydronephrosis. Cyst or mass: No. Nephrolithiasis: Bilateral nephrolithiasis. The largest on the right measures 9 mm and is located in the superior pole. The largest on the left measures 7 mm and is located in the inferior pole. Other findings: None. Bladder:The urinary bladder is incompletely distended limiting evaluation. Ureteral jets: Right: Not visualized on this examination. Left: Not visualized on this examination. Prevoid vol:25 cc Postvoid vol:The patient was unable to void during the examination. Renal color flow: Symmetric and within normal limits. IMPRESSION: 1. Mild right hydronephrosis. 2. Findings were discussed with Karyn Goldsmith at 4:10 p.m. on 04/07/2023. DATA REPOSITORY:
[2023-04-07 15:37] LABS: Bilirubin Negative (Negative); Blood Negative (Negative); Clarity Clear (Clear); Glucose Negative (Negative); Ketones Negative (Negative); Leukocyte Esterase Negative (Negative); Nitrite Negative (Negative); pH 7.5 (5-8)
--- NOTE | 2023-04-07 16:30 | RT.EKG_ITS ---
APPROVED REPORT Exam: Resting ECG Reason for Exam: Low Sat/Low BP Patient Location: E HR:53 bpm ECG Measurements Heart Rate 53 AXIS MD 157 P 36 QRSd 106 QRS 11 QT 445 T 28 QTc 419 Conclusion Sinus bradycardia...rate< [address] segment or T wave abnormalities to suggest occlusive OR
[2023-04-07 16:37] VITALS: BP 116/65; PULSE 42; RESP 18; TEMP 37.2; O2SAT 100
[2023-04-07 17:03] LABS: ALT 24 U/L (14-59); AST 16 U/L (15-37); Albumin 4.3 g/dL (3.4-5.0); Alkaline Phosphatase 111 U/L (46-116); Anion Gap 7.8 mmol/L (3-11); BUN 10 mg/dL (7-18); Bilirubin, Total 0.6 mg/dL (0.2-1.0); CO2 30.2 mmol/L (21.0-32.0); CREATININE 0.8 mg/dL (0.55-1.02); Calcium 9.7 mg/dL (8.5-10.1); Chloride 106 mmol/L (98-107); Estimated GFR 95.46 (mL/min/1.73m2); Glucose 64 mg/dL (74-106); Lipase 29 U/L (16-77); Potassium 3.6 mmol/L (3.5-5.1); Sodium 144 mmol/L (136-145); Total Protein 8.2 g/dL (6.4-8.2)
--- NOTE | 2023-04-07 17:23 | NUR.NOTE ---
Faxed referral for urology due to kidney stone. Nursing Note:
[2023-04-07 17:47] VITALS: BP 115/50; PULSE 63; TEMP 36.3; O2SAT 100
--- NOTE | 2023-04-07 22:37 | ED.GENADUL_ITS ---
Discharge Plan Disposition Patient Disposition: Home Discharge Details Clinical Impression: Ureterolithiasis Primary Care Provider: Deyanira Marcus ED Provider: Karyn Goldsmith Home Meds and New Rx's Prescriptions: New tamsulosin [Flomax] 0.4 mg capsule 0.4 mg PO DAILY Qty: 7 0RF ondansetron HCl 4 mg tablet 4 mg PO Q8H PRN5 Days Qty: 14 0RF Continued docusate sodium 100 mg capsule 100 mg PO DAILY PRN oxybutynin chloride 5 mg tablet extended release 24hr 5 mg PO DAILY Qty: 90 1RF Rx Instructions: Note change to 1 tab daily sumatriptan succinate 50 mg tablet See Rx Instructions PO .COMPLEX PRN Rx Instructions: take 1 tab at onset of headache; if no relief may repeat 1 tab after at least 2 hrs; max = 4 tabs/24 hr PO albuterol sulfate [ProAir HFA] 90 mcg/actuation HFA aerosol inhaler 2 inh inhalation Q6H PRN fluticasone propionate [Flovent HFA] 110 mcg/actuation HFA aerosol inhaler 1 inh inhalation BID ursodiol 200 mg capsule 250 mg PO DAILY magnesium L-lactate [Magtab] 84 mg tablet extended release 84 mg PO DAILY biotin 1 mg capsule 1 mg PO BID divalproex [Depakote] 250 mg tablet,delayed release (DR/EC) 250 mg PO BID rqkhxfxvssrg-Xg-ssve-minerals 18-0.4 mg tablet 1 tab PO DAILY bupropion HCl 300 mg tablet extended release 24 hr 300 mg PO QAM cholecalciferol (vitamin D3) 50 mcg (2,000 unit) capsule 50 mcg PO DAILY glyburide 5 mg tablet 5 mg PO DAILY ibuprofen 600 mg tablet 600 mg PO Q8H PRN Patient Comments: not taking lisinopril 5 mg tablet 5 mg PO DAILY metoclopramide HCl 10 mg tablet 10 mg PO QAC Rx Instructions: administer 30 minutes before meals trazodone 50 mg tablet 50 mg PO QHS PRN pantoprazole 40 mg Tablet,Delayed Release (Dr/Ec) 40 mg PO DAILY loratadine 10 mg capsule 10 mg PO DAILY PRN sucralfate [Carafate] 100 mg/mL suspension 10 ml PO BID Qty: 200 1RF acetaminophen 500 mg tablet 500 mg PO Q6H PRN (Reason: pain) Qty: 60 0RF tramadol 50 mg tablet 50 mg PO Q6H MDD 4 PRN (Reason: pain) Qty: 20 0RF Rx Instructions: may take along with Tylenol cyclobenzaprine 5 mg tablet 5 mg PO TID PRNQty: 14 0RF Discharge Instructions Additional Instructions: I suspect you have a kidney stone, you have hydronephrosis or fluid on your right kidney consistent with your exam, please follow-up with urologist, and placing referral Take Zofran as needed for nausea and vomiting, take the Flomax daily Strain your urine,we will supply you with a strainer Your blood sugar is low today, please try to eat small frequent meals Please return immediately should you develop fever, chills, worsening pain Stand Alone Forms: Work Release Referrals: Mika Sandy MD [ [facility] STAFF PHYSICIAN] - Discharge Data Discharge Date/Time-TO BE ENTERED AT DEPARTURE: 04/07/23 17:55 Medical Decision Making 42 old female, alert and oriented presenting with right flank pain, given the patient has had a number of CT abdomen and pelvis studies, I did order renal ultrasound Renal ultrasound shows hydronephrosis on the right, this is on the side the patient is reporting pain, suspect ureterolithiasis, no evidence of secondary urinary tract infection Patient was placed on Flomax, will increase fluids, Zofran, referral to urology We will strain urine Of note glucose was 64, patient given anh crackers and juice repeat glucose within normal limits, patient states she has not had anything to eat today Blood pressure and vital stable at time of discharge home Return precautions reviewed in detail and patient expressed understanding, tenderness to palpation in right flank, no anterior abdominal tenderness, afebrile and nontoxic HPI General Date/Time Provider Initiated Documentation: 04/07/23 15:33 . HPI Narrative: This 42-year-old female with history of diabetes, gastric bypass, ureterolithiasis presents with report of right flank pain. States her symptoms started today. History of ureterolithiasis in the past, has had mild dysuria without hematuria per patient. Denies fever or chills. States the pain has been constant since onset. Related Data Home Medications Medication Instructions Recorded Confirmed pantoprazole 40 mg tablet,delayed 40 mg PO DAILY 05/11/19 04/07/23 release docusate sodium 100 mg capsule 100 mg PO DAILY PRN 08/30/19 04/07/23 sumatriptan succinate 50 mg tablet See Rx Instructions PO .COMPLEX PRN 11/27/19 04/07/23 acetaminophen 500 mg tablet 500 mg PO Q6H PRN pain #60 tabs 05/28/20 04/07/23 loratadine 10 mg capsule 10 mg PO DAILY PRN 01/21/21 04/07/23 albuterol sulfate 90 mcg/actuation 2 inh inhalation Q6H PRN 03/23/21 04/07/23 aerosol inhaler (ProAir HFA) fluticasone propionate 110 1 inh inhalation BID 03/23/21 04/07/23 mcg/actuation HFA aerosol inhaler (Flovent HFA) biotin 1 mg capsule 1 mg PO BID 10/22/21 04/07/23 divalproex 250 mg tablet,delayed 250 mg PO BID 10/22/21 04/07/23 release (Depakote) magnesium L-lactate 84 mg 84 mg PO DAILY 10/22/21 04/07/23 tablet,extended release (Magtab) qftuosukkemf-Qd-cumw-minerals 18 1 tab PO DAILY 10/22/21 04/07/23 mg-0.4 mg tablet ursodiol 200 mg capsule 250 mg PO DAILY 10/22/21 04/07/23 sucralfate 100 mg/mL oral 10 ml PO BID #200 mL 12/17/21 04/07/23 suspension (Carafate) tramadol 50 mg tablet 50 mg PO Q6H PRN pain #20 tabs 02/25/22 04/07/23 bupropion HCl 300 mg 24 hr tablet, 300 mg PO QAM 01/20/23 04/07/23 extended release cholecalciferol (vitamin D3) 50 50 mcg PO DAILY 01/20/23 04/07/23 mcg (2,000 unit) capsule glyburide 5 mg tablet 5 mg PO DAILY 01/20/23 04/07/23 ibuprofen 600 mg tablet 600 mg PO Q8H PRN 01/20/23 03/30/23 lisinopril 5 mg tablet 5 mg PO DAILY 01/20/23 04/07/23 metoclopramide HCl 10 mg tablet 10 mg PO QAC 01/20/23 04/07/23 trazodone 50 mg tablet 50 mg PO QHS PRN 01/20/23 04/07/23 cyclobenzaprine 5 mg tablet 5 mg PO TID PRN #14 tabs 03/09/23 04/07/23 oxybutynin chloride 5 mg 5 mg PO DAILY #90 tabs 03/14/23 04/07/23 tablet,extended release 24 hr ondansetron HCl 4 mg tablet 4 mg PO Q8H PRN 5 days #14 tabs 04/07/23 tamsulosin 0.4 mg capsule (Flomax) 0.4 mg PO DAILY #7 caps 04/07/23 Previous Rx's Medication Instructions Recorded acetaminophen 500 mg tablet 500 mg PO Q6H PRN pain #60 tabs 05/28/20 sucralfate 100 mg/mL oral 10 ml PO BID #200 mL 12/17/21 suspension (Carafate) tramadol 50 mg tablet 50 mg PO Q6H PRN pain #20 tabs 02/25/22 cyclobenzaprine 5 mg tablet 5 mg PO TID PRN #14 tabs 03/09/23 oxybutynin chloride 5 mg 5 mg PO DAILY #90 tabs 03/14/23 tablet,extended release 24 hr ondansetron HCl 4 mg tablet 4 mg PO Q8H PRN 5 days #14 tabs 04/07/23 tamsulosin 0.4 mg capsule (Flomax) 0.4 mg PO DAILY #7 caps 04/07/23 Allergies Allergy/AdvReac Type Severity Reaction Status Date / Time amoxicillin Allergy Severe trouble Verified 04/07/23 15:24 breathing and a rash artichoke Allergy Severe ANAPHYLAXIS Verified 04/07/23 15:24 Penicillins Allergy Intermediate HIVES Verified 04/07/23 15:24 sodium hypochlorite solution Allergy Intermediate HIVES/SOB Verified 04/07/23 15:24 [sodium hypochlorite] adhesive tape Allergy Mild Skin Rash Verified 04/07/23 15:24 General Stated Complaint: FlankPain MIKE: 4 PFSH All Active Problems (Updated 04/07/23 @ 17:22 by MELECIO Paris) Anxiety and depression (Acute 02/12/14) Diabetes (Acute 02/12/14) diet controlled Elevated lipids (Acute 02/12/14) Migraine (Acute 02/12/14) Numbness of left hand (Acute 07/04/17) Tubular adenoma of colon (Acute 04/28/17) Carpal tunnel syndrome on both sides (Acute) Medial epicondylitis, left elbow (Acute) CHAPARRO (nonalcoholic steatohepatitis) (Acute) Viral illness (Acute) Migraine headache without aura (Acute) Right lateral epicondylitis (Acute) Medial epicondylitis, right elbow (Acute) Cubital tunnel syndrome on right (Acute) Right wrist sprain (Acute) Contusion of right forearm (Acute) Sprain of right elbow (Acute) Bradycardia (Acute) Vomiting (Acute) Hematemesis (Acute) Sinus bradycardia (Acute) Hypokalemia (Acute) Fall (Acute) Seizure disorder (Chronic) Bipolar 1 disorder (Acute) Gastric bypass status for obesity (Acute) Chest pain (Acute) Left ankle sprain (Acute) Arm paresthesia, right (Acute) Bilateral kidney stones (Acute) Screening for colon cancer (Acute) Psychogenic nonepileptic seizure (Acute) Muscle spasm (Acute) Back pain (Acute) Right carpal tunnel syndrome (Acute) Ureterolithiasis (Acute) Medical History Absence seizure Pt. states they happened more when she was overweight, has not had one in 1.5 years Adrenal abnormality Anxiety and depression Asthma Cervical cancer Chronic back pain Cubital tunnel syndrome Depressive disorder Diabetes mellitus, type 2 Elevated lipids Family history of attention deficit hyperactivity disorder GERD (gastroesophageal reflux disease) Hypertension Kidney stone Lumbar disc herniation Macromastia Medial epicondylitis of elbow Migraine Obesity Obstructive sleep apnea syndrome pt. states she does not have this anymore r/t to gastric bypass Polycystic ovaries Snoring Spinal stenosis Surgical History anterior cruciate ligament reconstruction section twice Colonoscopy - MAC (02/18/23) 11/26/2016 Cubital tunnel syndrome on left (09/14/17) 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 (Date of Surgery: 03/02/18 and 10/02/2019) EGD - MAC (11/26/16) Endoscopic Carpal Tunnel release (01/14/09) 09/16/2010 REPEAT ECTR RIGHT H/O gastric bypass History of lumbar surgery Pt reports lower back disc, rods and screws 5 years ago, 2017' Ligation of fallopian tube Open Carpal Tunnel release (10/23/12) RIGHT SIDE, left 8.14.14 Vaginal hysterectomy Social History Smoking/Tobacco Use Status: Former Tobacco Use Quit Date: 08/01/05 Smoking risk assessment performed?: Yes Alcohol Intake: never Drug use: Never Substance use type: does not use Household members: spouse and children Housing: house Current gender identity: female What is your relationship status?: Panel score (0-1 are the most socially isolated patients): 1 Seatbelt use: always Do you feel safe at home: Yes Do you feel safe in your relationship?: Yes Course Vital Signs Vital signs: Vital Signs Temperature 36.8 C 04/07/23 14:36 Pulse 65 04/07/23 14:36 Respiratory Rate 20 04/07/23 14:36 Blood Pressure 111/55 L 04/07/23 14:36 Pulse Oximetry 97 04/07/23 14:36 Temperature 36.3 C L 04/07/23 17:47 Temperature Source Tympanic 04/07/23 17:47 Pulse 63 04/07/23 17:47 Respiratory Rate 18 04/07/23 16:37 Respiratory Effort Normal, Non-Labored 04/07/23 15:21 Blood Pressure 115/50 L 04/07/23 17:47 Blood Pressure Position Sitting 04/07/23 14:36 Pulse Oximetry 100 04/07/23 17:47 Oxygen Delivery Method Room Air 04/07/23 17:47 Oxygen Flow Rate 0 04/07/23 17:47 Pain Level 0 04/07/23 17:47 Lab/Test Results Lab/Test Results: Laboratory Tests Range/Units 04/07/23 04/07/23 04/07/23 14:45 15:34 16:30 WBC Cancelled RBC Cancelled Hgb Cancelled Hct Cancelled MCV Cancelled MCH Cancelled MCHC Cancelled RDW Cancelled Plt Count Cancelled MPV Cancelled Immature Gran % Cancelled Neutrophils % Cancelled Band Neutrophils % Cancelled Lymphocytes % Cancelled Atypical Lymphs % Cancelled Monocytes % Cancelled Eosinophils % Cancelled Basophils % Cancelled Metamyelocytes % Cancelled Myelocytes % Cancelled Promyelocytes % Cancelled Other Cells % Cancelled Nucleated RBC % Cancelled Absolute Neutrophils Cancelled Absolute Lymphocytes Cancelled Absolute Monocytes Cancelled Absolute Eosinophils Cancelled Absolute Basophils Cancelled RBC Morphology Cancelled Polychromasia Cancelled Hypochromasia Cancelled Poikilocytosis Cancelled Basophilic Stippling Cancelled Anisocytosis Cancelled Microcytosis Cancelled Macrocytosis Cancelled Spherocytes Cancelled Tear Drop Cells Cancelled Ovalocytes Cancelled Stomatocytes Cancelled [place] Bodies Cancelled [place] Cells/Echinocytes Cancelled Acanthocytes (Spur) Cancelled Schistocytes Cancelled Sodium (136-145) mmol/L 144 Potassium (3.5-5.1) mmol/L 3.6 Chloride (98-107) mmol/L 106 Carbon Dioxide (21.0-32.0) mmol/L 30.2 Anion Gap (3-11) mmol/L 7.8 BUN (7-18) mg/dL 10 Creatinine (0.55-1.02) mg/dL 0.8 Est GFR (CKD-EPI 2020) (mL/min/1.73m2) 95.46 Glucose (74-106) mg/dL 64 L Calcium (8.5-10.1) mg/dL 9.7 Total Bilirubin (0.2-1.0) mg/dL 0.6 AST (15-37) U/L 16 ALT (14-59) U/L 24 Alkaline Phosphatase (46-116) U/L 111 Total Protein (6.4-8.2) g/dL 8.2 Albumin (3.4-5.0) g/dL 4.3 Lipase (16-77) U/L 29 Urine Color (Yellow) Yellow Urine Clarity (Clear) Clear Urine pH (5-8) 7.5 Ur Specific [place] (1.005-1.025) 1.020 Urine Protein (Negative) mg/dL Negative Urine Ketones (Negative) mg/dL Negative Urine Blood (Negative) Negative Urine Nitrite (Negative) Negative Urine Bilirubin (Negative) Negative Urine Urobilinogen (Up to 0.2) mg/dL 1.0 H Ur Leukocyte Esterase (Negative) Negative Urine Glucose (Negative) mg/dL Negative POC- Test(urine) Negative
--- NOTE | 2023-04-09 09:38 | NUR.NOTE ---
Accessed pt chart to determine number of EKG's ordered. Nursing Note:
--- NOTE | 2023-04-09 09:52 | NUR.NOTE ---
in chart to cancel duplicate ECG order Nursing Note:
== END 2023-04-07 17:55 | disposition home or self-care (01) ==
PROVIDERS: Student in an Organized Health Care Education/Training Program; Emergency Provider Physician Assistant; PCP Nurse Practitioner Family
DX: R30.0 Dysuria (principal); R10.9 Unspecified abdominal pain; N13.2 Hydronephrosis with renal and ureteral calculous obstruction; Z87.442 Personal history of urinary calculi; E11.649 Type 2 diabetes mellitus with hypoglycemia without coma; Z79.84 Long term (current) use of oral hypoglycemic drugs; Z98.84 Bariatric surgery status; R03.1 Nonspecific low blood-pressure reading
CPT/HCPCS: 76770; 80053; 83690; 93005; 99285; 81003; 85025; 93010; 99284

== ENCOUNTER 2023-04-25 09:44 | Day surgery (SDC) | payer MEDICAID, SELFPAY ==
[2023-04-25] VITALS (8 sets, daily range): BP systolic 131–160; BP diastolic 58–74; PULSE 43–59; RESP 12–18; TEMP 36.4–36.6; O2SAT 98–100; BMI 24.2
--- NOTE | 2023-04-25 07:07 | ANES.PREOP_ITS ---
General Info Date of Service Date Performed: 04/25/23 Height: 5 ft 6 in Weight: 68.13 kg Body Mass Index (BMI): 24.2 Surgical Procedure: Operation Date: 04/25/23 11:25 Proposed Procedure Side Surgeon p Cystoscopy/? Laser/Retrograde/Ureteroscopy/Stone Manipulation/ ? Stent Placement Mika Sandy MD Meds Allergies and Home Medications Allergies Allergy/AdvReac Type Severity Reaction Status Date / Time amoxicillin Allergy Severe trouble Verified 04/25/23 10:19 breathing and a rash artichoke Allergy Severe ANAPHYLAXIS Verified 04/25/23 10:19 Penicillins Allergy Intermediate HIVES Verified 04/25/23 10:19 sodium hypochlorite solution Allergy Intermediate HIVES/SOB Verified 04/25/23 10:19 [sodium hypochlorite] adhesive tape Allergy Mild Skin Rash Verified 04/25/23 10:19 Home Medication Medication Instructions Recorded pantoprazole 40 mg tablet,delayed 40 mg PO DAILY 05/11/19 release docusate sodium 100 mg capsule 100 mg PO DAILY PRN 08/30/19 sumatriptan succinate 50 mg tablet See Rx Instructions PO .COMPLEX PRN 11/27/19 acetaminophen 500 mg tablet 500 mg PO Q6H PRN pain #60 tabs 05/28/20 loratadine 10 mg capsule 10 mg PO DAILY PRN 01/21/21 albuterol sulfate 90 mcg/actuation 2 inh inhalation Q6H PRN 03/23/21 aerosol inhaler (ProAir HFA) fluticasone propionate 110 1 inh inhalation BID 03/23/21 mcg/actuation HFA aerosol inhaler (Flovent HFA) biotin 1 mg capsule 1 mg PO DAILY 10/22/21 divalproex 250 mg tablet,delayed 250 mg PO BID 10/22/21 release (Depakote) magnesium L-lactate 84 mg 84 mg PO DAILY 10/22/21 tablet,extended release (Magtab) xuntudhvqrzy-Zc-tmmv-minerals 18 1 tab PO DAILY 10/22/21 mg-0.4 mg tablet ursodiol 200 mg capsule 250 mg PO DAILY 10/22/21 sucralfate 100 mg/mL oral 10 ml PO BID #200 mL 12/17/21 suspension (Carafate) tramadol 50 mg tablet 50 mg PO Q6H PRN pain #20 tabs 02/25/22 bupropion HCl 300 mg 24 hr tablet, 300 mg PO QAM 01/20/23 extended release cholecalciferol (vitamin D3) 50 50 mcg PO DAILY 01/20/23 mcg (2,000 unit) capsule glyburide 5 mg tablet 5 mg PO DAILY 01/20/23 ibuprofen 600 mg tablet 600 mg PO Q8H PRN 01/20/23 lisinopril 5 mg tablet 5 mg PO DAILY 01/20/23 metoclopramide HCl 10 mg tablet 10 mg PO QAC 01/20/23 trazodone 50 mg tablet 50 mg PO QHS PRN 01/20/23 cyclobenzaprine 5 mg tablet 5 mg PO TID PRN #14 tabs 03/09/23 oxybutynin chloride 5 mg 5 mg PO DAILY #90 tabs 03/14/23 tablet,extended release 24 hr tamsulosin 0.4 mg capsule (Flomax) 0.4 mg PO DAILY #7 caps 04/07/23 Current Visit Medications: Current Medications Generic Name Dose Route Start Last Admin Trade Name [place] PRN Reason Stop Dose Admin Ringer's Solution 1,000 mls @ 80 mls/hr 04/25/23 06:00 IV 05/22/23 23:59 INFUSION CORKY Gentamicin Sulfate 160 mg/ 104 mls @ 208 mls/hr 04/25/23 06:00 Sodium Chloride IVPB 04/25/23 18:00 PREOP CORKY IV Miscellaneous Supplies 1 each 04/25/23 06:00 Iv Access IV 05/22/23 23:59 DIRECTED CORKY Sodium Chloride 0 ml 04/25/23 06:00 Normal Saline Flush 10 Ml Syr IV 05/22/23 23:59 PRN PRN Sodium Chloride 0 ml 04/25/23 06:00 Normal Saline 10 Ml Vial IJ 05/22/23 23:59 DIRECTED PRN Sterile Water 0 ml 04/25/23 06:00 Water,Injection,Sterile 10 Ml Vial IJ 05/22/23 23:59 DIRECTED PRN PFSH Active Problems Active Problems: Problem Status Onset Code Anxiety and depression 02/12/14 F41.9, F32.9 Diabetes 02/12/14 E11.9 Elevated lipids 02/12/14 E78.5 Migraine 02/12/14 G43.909 Numbness of left hand 07/04/17 R20.0 Tubular adenoma of colon 11/26/16 D12.6 Carpal tunnel syndrome on both sides G56.03 Medial epicondylitis, left elbow M77.02 CHAPARRO (nonalcoholic steatohepatitis) K75.81 Viral illness B34.9 Migraine headache without aura G43.009 Right lateral epicondylitis M77.11 Medial epicondylitis, right elbow M77.01 Cubital tunnel syndrome on right G56.21 Right wrist sprain S63.501A Contusion of right forearm S50.11XA Sprain of right elbow S53.401A Bradycardia R00.1 Vomiting R11.10 Hematemesis K92.0 Sinus bradycardia R00.1 Hypokalemia E87.6 Fall W19.XXXA Seizure disorder G40.909 Bipolar 1 disorder F31.9 Gastric bypass status for obesity Z98.84 Chest pain R07.9 Left ankle sprain S93.402A Arm paresthesia, right R20.2 Bilateral kidney stones N20.0 Screening for colon cancer Z12.11 Psychogenic nonepileptic seizure F44.5 Right carpal tunnel syndrome G56.01 Ureterolithiasis N20.1 Medical History Medical History Absence seizure Pt. states they happened more when she was overweight, has not had one in 1.5 years Adrenal abnormality Anxiety and depression Asthma Cervical cancer Chronic back pain Cubital tunnel syndrome Depressive disorder Diabetes mellitus, type 2 Elevated lipids Family history of attention deficit hyperactivity disorder GERD (gastroesophageal reflux disease) Hypertension Kidney stone Lumbar disc herniation Macromastia Medial epicondylitis of elbow Migraine Obesity Obstructive sleep apnea syndrome pt. states she does not have this anymore r/t to gastric bypass Polycystic ovaries Snoring Spinal stenosis Medical History Comments:: adhesive tape allergy Surgical History Surgical History anterior cruciate ligament reconstruction section twice Colonoscopy - MAC (02/18/23) 11/26/2016 Cubital tunnel syndrome on left (09/14/17) 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 (Date of Surgery: 03/02/18 and 10/02/2019) EGD - MAC (11/26/16) Endoscopic Carpal Tunnel release (01/14/09) 09/16/2010 REPEAT ECTR RIGHT H/O gastric bypass History of lumbar surgery Pt reports lower back disc, rods and screws 5 years ago, 2017' Ligation of fallopian tube Open Carpal Tunnel release (10/23/12) RIGHT SIDE, left 8.14.14 Vaginal hysterectomy Tobacco Smoking/Tobacco Use Status: Former Tobacco Use Alcohol Alcohol Intake: never Substance Use Substance use: Never Substance use type: does not use Vital Signs and Lab Results Vital Signs Most Recent Vital Signs in EMR: Temp Pulse Resp BP Pulse Ox 36.6 C 59 L 18 131/66 98 04/25/23 10:23 04/25/23 10:23 04/25/23 10:23 04/25/23 10:23 04/25/23 10:23 Lab Results Blood Type / Crossmatch: No Data to Display Complete Blood Count: No Data to Display Complete Metabolic Panel: Sodium 144 mmol/L (136-145) 04/07/23 16:30 Potassium 3.6 mmol/L (3.5-5.1) 04/07/23 16:30 Chloride 106 mmol/L (98-107) 04/07/23 16:30 Carbon Dioxide 30.2 mmol/L (21.0-32.0) 04/07/23 16:30 BUN 10 mg/dL (7-18) 04/07/23 16:30 Creatinine 0.8 mg/dL (0.55-1.02) 04/07/23 16:30 Est GFR (CKD-EPI 2020) 95.46 (mL/min/1.73m2) 04/07/23 16:30 Calcium 9.7 mg/dL (8.5-10.1) 04/07/23 16:30 Albumin 4.3 g/dL (3.4-5.0) 04/07/23 16:30 Glucose 64 mg/dL (74-106) L 04/07/23 16:30 Liver Function Panel: Alanine Aminotransferase (ALT/SGPT) 24 U/L (14-59) 04/07/23 16: 30 Aspartate Amino Transf (AST/SGOT) 16 U/L (15-37) 04/07/23 16:30 Coagulation Panel: No Data to Display Cardiac Panel: No Data to Display Arterial Blood Gas: No Data to Display Venous Blood Gas: No Data to Display Pancreas Panel: Lipase 29 U/L (16-77) 04/07/23 16:30 Thyroid Panel: No Data to Display Infectious Disease: No Data to Display Blood Cultures: No Data to Display Toxicology Panel: No Data to Display Panel: No Data to Display Imaging and Studies Imaging and Studies Study information below may be from another EMR and interpreted by another provider. Please see original notes in EMR for more complete details. EKG Summary: 04/23: sinus dara. Anesthesia Assessment and Plan Anesthesia History Personal History: No History of Anesthesia Complications Family History: No Family History of Anesthesia Complications Exercise Tolerance Exercise Tolerance: Metabolic Equivalents>4 Pertinent Negatives Pertinent Negatives: No Symptoms of GERD, No Major Cardiovascular Symptoms or Complaints, No Major Pulmonary Symptoms or Complaints and No History of CVA/TIA Cardiac & Pulmonary Exam Cardiac Exam: Normal S1/S2 Heart Sounds Pulmonary Exam: Clear Bilateral Breath Sounds Implantable Cardiac Device Does patient have a Pacemaker or an ICD?: No Airway Exam Known Difficult Airway: No Mallampati Class: 2 Mouth Opening: Normal (> 3cm) Thyromental Distance: Greater than 3 cm Neck Range of Motion: Full ROM Neck Circumference: Normal Teeth Condition: Normal Dentition and Other (tongue ring non-removable) ASA Classification ASA Score: ASA 2 Emergency Case?: No NPO Status NPO Status: NPO Clears >2 hours, Solids >8 hours Status Status: History of Hysterectomy Anesthesia Plan Resuscitation Status: Full Code Anesthesia Technique: General Anesthesia Airway Planned: LMA Monitors Used: Standard Monitors Preoperative Comments:: 42 yo female for cysto. Sig PMHx: asthma, HTN, DM, CHAPARRO, absence SZ, s/p GBypass, Previous Anes: - EGD/colo, fent, midaz, prop, natural airway no issues. - LMA 5 - LMA 4 - LMA 3
[2023-04-25] MEDS: Lactated Ringers 1,000 ML 80 ML IV (10:50)
--- NOTE | 2023-04-25 12:30 | W.PM.HP.N ---
Date of service: 04/25/23 Time of Service: 12:30 Assessment and Plan Assessment and plan (1) Right kidney stone: Status: Acute Assessment and plan: We will plan to do a cystoscopy and right retrograde pyelogram. We will address any ureteral stone that is visualized. We also know that she has an upper pole kidney stone, so we will be prepared to do a flexible ureteroscopy and holmium laser lithotripsy of the upper pole stone as well. History of Present Illness Narrative: Dawn is a 42-year-old female with history of kidney stones underwent stone manipulation with ureteroscopy and stent placement and staged procedures summer 2021.? She also has bladder spasms associated with OAB.? She is treated with oxybutynin 5 mg daily extended release. We saw her approximately a month ago for a symptom on her OAB.? She noted that her bladder spasms were effectively controlled with the use of oxybutynin.? She was able to increase her fluids without dysuria or having incontinence.? However in the past month since we have seen her, she has had some right flank pain and was seen through the emergency room.? She was informed that she has a larger right-sided kidney stone that was responsible for her symptoms. She has not passed her stone. She presents for ureteroscopy with stone manipulation. She had a similar procedure in 2021. Review of Systems Narrative: No fevers or chills No vision change or dysphasia Hx Diabetes. No thyroid dysfunction No shortness of breath, cough or hemoptysis No chest pain or palpitations No nausea or vomiting No seizures, strokes or peripheral neuropathy No bleeding disorders or anemia No gout PFSH All Active Problems (Updated 04/25/23 @ 12:35 by Mika Sandy MD) Right kidney stone (Acute) Anxiety and depression (Acute 02/12/14) Diabetes (Acute 02/12/14) diet controlled Elevated lipids (Acute 02/12/14) Migraine (Acute 02/12/14) Numbness of left hand (Acute 07/04/17) Tubular adenoma of colon (Acute 11/26/16) Carpal tunnel syndrome on both sides (Acute) Medial epicondylitis, left elbow (Acute) CHAPARRO (nonalcoholic steatohepatitis) (Acute) Viral illness (Acute) Migraine headache without aura (Acute) Right lateral epicondylitis (Acute) Medial epicondylitis, right elbow (Acute) Cubital tunnel syndrome on right (Acute) Right wrist sprain (Acute) Contusion of right forearm (Acute) Sprain of right elbow (Acute) Bradycardia (Acute) Vomiting (Acute) Hematemesis (Acute) Sinus bradycardia (Acute) Hypokalemia (Acute) Fall (Acute) Seizure disorder (Chronic) Bipolar 1 disorder (Acute) Gastric bypass status for obesity (Acute) Chest pain (Acute) Left ankle sprain (Acute) Arm paresthesia, right (Acute) Bilateral kidney stones (Acute) Screening for colon cancer (Acute) Psychogenic nonepileptic seizure (Acute) Right carpal tunnel syndrome (Acute) Ureterolithiasis (Acute) Medical History Absence seizure Pt. states they happened more when she was overweight, has not had one in 1.5 years Adrenal abnormality Anxiety and depression Asthma Cervical cancer Chronic back pain Cubital tunnel syndrome Depressive disorder Diabetes mellitus, type 2 Elevated lipids Family history of attention deficit hyperactivity disorder GERD (gastroesophageal reflux disease) Hypertension Kidney stone Lumbar disc herniation Macromastia Medial epicondylitis of elbow Migraine Obesity Obstructive sleep apnea syndrome pt. states she does not have this anymore r/t to gastric bypass Polycystic ovaries Snoring Spinal stenosis Surgical History anterior cruciate ligament reconstruction section twice Colonoscopy - MAC (02/18/23) 11/26/2016 Cubital tunnel syndrome on left (09/14/17) 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 (Date of Surgery: 03/02/18 and 10/02/2019) EGD - MAC (11/26/16) Endoscopic Carpal Tunnel release (01/14/09) 09/16/2010 REPEAT ECTR RIGHT H/O gastric bypass History of lumbar surgery Pt reports lower back disc, rods and screws 5 years ago, 2017' Ligation of fallopian tube Open Carpal Tunnel release (10/23/12) RIGHT SIDE, left 8.14.14 Vaginal hysterectomy Social History Smoking/Tobacco Use Status: Former Tobacco Use Quit Date: 08/01/05 Smoking risk assessment performed?: Yes Alcohol Intake: never Drug use: Never Substance use type: does not use Household members: spouse and children Housing: house Current gender identity: female What is your relationship status?: Panel score (0-1 are the most socially isolated patients): 1 Seatbelt use: always Do you feel safe at home: Yes Do you feel safe in your relationship?: Yes Additional Social history: unable to assess privately Meds Allergies and Home Medications Allergies Allergy/AdvReac Type Severity Reaction Status Date / Time amoxicillin Allergy Severe trouble Verified 04/25/23 10:19 breathing and a rash artichoke Allergy Severe ANAPHYLAXIS Verified 04/25/23 10:19 Penicillins Allergy Intermediate HIVES Verified 04/25/23 10:19 sodium hypochlorite solution Allergy Intermediate HIVES/SOB Verified 04/25/23 10:19 [sodium hypochlorite] adhesive tape Allergy Mild Skin Rash Verified 04/25/23 10:19 Home Medications Medication Instructions Recorded Confirmed Type pantoprazole 40 mg tablet,delayed 40 mg PO DAILY 05/11/19 04/22/23 History release docusate sodium 100 mg capsule 100 mg PO DAILY PRN 08/30/19 04/25/23 History sumatriptan succinate 50 mg tablet See Rx Instructions PO .COMPLEX PRN 11/27/19 04/22/23 History acetaminophen 500 mg tablet 500 mg PO Q6H PRN pain #60 tabs 05/28/20 04/25/23 Rx loratadine 10 mg capsule 10 mg PO DAILY PRN 01/21/21 04/25/23 History albuterol sulfate 90 mcg/actuation 2 inh inhalation Q6H PRN 03/23/21 04/25/23 History aerosol inhaler (ProAir HFA) fluticasone propionate 110 1 inh inhalation BID 03/23/21 04/25/23 History mcg/actuation HFA aerosol inhaler (Flovent HFA) biotin 1 mg capsule 1 mg PO DAILY 10/22/21 04/25/23 History divalproex 250 mg tablet,delayed 250 mg PO BID 10/22/21 04/25/23 History release (Depakote) magnesium L-lactate 84 mg 84 mg PO DAILY 10/22/21 04/22/23 History tablet,extended release (Magtab) mouwheyeptdw-Iu-mhqv-minerals 18 1 tab PO DAILY 10/22/21 04/22/23 History mg-0.4 mg tablet ursodiol 200 mg capsule 250 mg PO DAILY 10/22/21 04/25/23 History sucralfate 100 mg/mL oral 10 ml PO BID #200 mL 12/17/21 04/22/23 Rx suspension (Carafate) tramadol 50 mg tablet 50 mg PO Q6H PRN pain #20 tabs 02/25/22 04/22/23 Rx bupropion HCl 300 mg 24 hr tablet, 300 mg PO QAM 01/20/23 04/25/23 History extended release cholecalciferol (vitamin D3) 50 50 mcg PO DAILY 01/20/23 04/25/23 History mcg (2,000 unit) capsule glyburide 5 mg tablet 5 mg PO DAILY 01/20/23 04/25/23 History ibuprofen 600 mg tablet 600 mg PO Q8H PRN 01/20/23 04/25/23 History lisinopril 5 mg tablet 5 mg PO DAILY 01/20/23 04/25/23 History metoclopramide HCl 10 mg tablet 10 mg PO QAC 01/20/23 04/22/23 History trazodone 50 mg tablet 50 mg PO QHS PRN 01/20/23 04/25/23 History cyclobenzaprine 5 mg tablet 5 mg PO TID PRN #14 tabs 03/09/23 04/25/23 Rx oxybutynin chloride 5 mg 5 mg PO DAILY #90 tabs 03/14/23 04/22/23 Rx tablet,extended release 24 hr tamsulosin 0.4 mg capsule (Flomax) 0.4 mg PO DAILY #7 caps 04/07/23 04/22/23 Rx Exam Const General: cooperative Neck Neck: supple Resp Effort & Inspection: normal respiratory effort Auscultation: clear to auscultation bilaterally Cardio Rate: regular rate Rhythm: regular rhythm GI Palpation: soft and no masses Neuro General: patient alert, patient awake and patient oriented x3 Results Last Vital Signs Temp 36.6 C 04/25/23 10:23 Pulse 59 L 04/25/23 10:23 Resp 18 04/25/23 10:23 BP 131/66 04/25/23 10:23 Pulse Ox 98 04/25/23 10:23 Time Spent Time spent with Patient: <40 minutes Time was spent: other
[2023-04-25] MEDS: Dextrose 50%-Water 25 GM/50 ML SYR IVP (12:35)
--- NOTE | 2023-04-25 12:45 | DI.RAD_ITS ---
Exam(s) XR RETROGRADE IN OR EXAM: XR RETROGRADE IN OR CLINICAL HISTORY: RIGHT KIDNEY STONE TECHNIQUE: 2D and realtime digital imaging was performed. CONTRAST MATERIAL: Refer to procedure report. COMPARISON: US US RENAL from 04/07/2023 FINDINGS: Fluoroscopy was provided for Dr. Sandy during the performance of a evaluation of the right renal col lecting system. Please refer to the procedure report for complete details. Ka,r=4.14 mGy IMPRESSION: RADIATION DOSE DELIVERED:
[2023-04-25] MEDS: GENTAMICIN 160 MG in Normal Saline 100 ML 208 MG IVPB (13:09)
[2023-04-25] MEDS: Lidocaine 2% Jelly 11 ML SYR (13:26)
[2023-04-25] MEDS: Omnipaque 300 MG/ML 50 ML BTL (13:26)
--- NOTE | 2023-04-25 13:51 | W.PM.DSUDISC ---
Date of service: 04/25/23 Time of Service: 13:51 Discharge Plan Disposition Condition: Stable Discharge Details Reason For Visit: ureteroscopy Attending Provider: Mika Sandy Primary Care Provider: Deyanira Marcus Home Meds and New Rx's Prescriptions: No Action docusate sodium 100 mg capsule 100 mg PO DAILY PRN oxybutynin chloride 5 mg tablet extended release 24hr 5 mg PO DAILY Qty: 90 1RF Rx Instructions: Note change to 1 tab daily sumatriptan succinate 50 mg tablet See Rx Instructions PO .COMPLEX PRN Rx Instructions: take 1 tab at onset of headache; if no relief may repeat 1 tab after at least 2 hrs; max = 4 tabs/24 hr PO albuterol sulfate [ProAir HFA] 90 mcg/actuation HFA aerosol inhaler 2 inh inhalation Q6H PRN fluticasone propionate [Flovent HFA] 110 mcg/actuation HFA aerosol inhaler 1 inh inhalation BID ursodiol 200 mg capsule 250 mg PO DAILY magnesium L-lactate [Magtab] 84 mg tablet extended release 84 mg PO DAILY biotin 1 mg capsule 1 mg PO DAILY divalproex [Depakote] 250 mg tablet,delayed release (DR/EC) 250 mg PO BID Patient Comments: taking once daily, in am jitjyylhygmf-Sc-tuda-minerals 18-0.4 mg tablet 1 tab PO DAILY bupropion HCl 300 mg tablet extended release 24 hr 300 mg PO QAM cholecalciferol (vitamin D3) 50 mcg (2,000 unit) capsule 50 mcg PO DAILY glyburide 5 mg tablet 5 mg PO DAILY ibuprofen 600 mg tablet 600 mg PO Q8H PRN Patient Comments: not taking lisinopril 5 mg tablet 5 mg PO DAILY metoclopramide HCl 10 mg tablet 10 mg PO QAC Rx Instructions: administer 30 minutes before meals trazodone 50 mg tablet 50 mg PO QHS PRN pantoprazole 40 mg Tablet,Delayed Release (Dr/Ec) 40 mg PO DAILY loratadine 10 mg capsule 10 mg PO DAILY PRN sucralfate [Carafate] 100 mg/mL suspension 10 ml PO BID Qty: 200 1RF tamsulosin [Flomax] 0.4 mg capsule 0.4 mg PO DAILY Qty: 7 0RF acetaminophen 500 mg tablet 500 mg PO Q6H PRN (Reason: pain) Qty: 60 0RF tramadol 50 mg tablet 50 mg PO Q6H MDD 4 PRN (Reason: pain) Qty: 20 0RF Rx Instructions: may take along with Tylenol cyclobenzaprine 5 mg tablet 5 mg PO TID PRNQty: 14 0RF Discharge Instructions Additional Instructions: no need to strain urine no appt needed - my office will contact pt to arrange followup cystoscopy, stent removal, ureteroscopy with extraction of any stone fragments Activity:: Activity as Tolerated Shower/Bathe:: 24 hours Diet:: As Tolerated DS: Diagnosis Discharge Diagnosis (1) Right kidney stone: Status: Acute
--- NOTE | 2023-04-25 13:56 | W.PM.OP ---
Date of service: 04/25/23 Time of Service: 13:56 Operative Note Operative Note DATE OF PROCEDURE: 04/25/23 PRE-OP DIAGNOSIS: Right kidney stone POST-OP DIAGNOSIS: same PROCEDURE: cystoscopy, right retrograde pyelogram, right flexible ureteroscopy with holmium laser lithotripsy of right kidney stones, insert right ureteral stent SURGEON: Mika Sandy ANESTHESIA TYPE: Local By Surgeon and General LMA/ETT Refer to Anesthesia Record ESTIMATED BLOOD LOSS: 5 PATHOLOGY: none sent Patient was transported to: PACU Patient's condition: stable Implants: 7 [place] by 22 to 30 cm right ureteral stent Indications: This is a 42-year-old woman who has a past history of kidney stones. She recently had an emergency room visit for dehydration. She admitted to some back discomfort and she was evaluated with a renal ultrasound. A 9 mm upper pole stone was found on the right kidney. She also had some mild hydronephrosis. She presents now for cystoscopy, right retrograde pyelogram, ureteroscopy with holmium laser lithotripsy of her stones Findings: Multiple smaller stones in the right upper pole Procedure Description: The patient was brought to the operating room on 04/25/2023. She was given preoperative IV antibiotics. After successful induction of general anesthesia, she was placed in the dorsal lithotomy position. Her genitalia was prepped and draped. 2% Xylocaine jelly was instilled into her urethra to act as a local anesthetic. A 22 [place] rigid cystoscope was passed through the urethra into the bladder. The bladder was inspected with a 30 degree lens. The bladder appeared normal with no stones visible. The left ureteral orifice appeared normal with no blood coming from the left side. The right side likewise appeared normal with no blood seen. The orifice was cannulated with a 5 [place] access catheter. Retrograde pyelogram was obtained by injecting Omnipaque through the access catheter under fluoroscopic guidance. No filling defects were seen along the course of the ureter. No specific filling defects were seen in the kidney, but we are able to outline each of the calyces. I then passed a wire through the lumen of the access catheter. I removed the access catheter and attempted to pass a dual-lumen catheter. I met resistance at the pelvic brim and was able to pass the dual-lumen catheter no further. I then passed a second wire and removed the dual-lumen catheter. I was able to pass a ureteral access sheath up with the ureter over one of the wires. The sheath was positioned such that the proximal and was just at the renal pelvis. I then passed the flexible ureteroscope through the lumen of the access sheath. I was able to inspect each of the calyces. Instead of a 9 mm stone in the upper pole calyx, I saw multiple smaller stones adjacent to 1 another. I used a 272 ?m holmium laser fiber to fragment the stones. We used a power setting of 0.8 and a rate of 10. The stone was fragmented quite nicely. The fragments seem to small to grasp in a 0 tip stone basket, so we elected to allow them to pass spontaneously. There did appear to be some stone material just within the renal papilla in the upper pole calyx. We incised the mucosa over the papilla using the laser as well. We then removed the ureteroscope and placed a 7 [place] variable length stent. The proximal end of the stent was curled in the renal pelvis and the distal end was curled within the bladder. The positioning of the stent was confirmed both fluoroscopically and cystoscopically. We will plan for return to the operating room to remove the stent and passed the ureteroscope 1 more time to ensure that all stone fragments had been addressed.
[2023-04-25] MEDS: fentaNYL 100 MCG/2 ML VIAL IVP (14:18)
--- NOTE | 2023-04-25 14:22 | W.ANESPOSTOP ---
Postoperative Evaluation Date, Time and Location Date Performed: 04/25/23 Time Performed: 14:23 Patient Location: PACU Vital Signs Most Recent Imported Vital Signs: Most Recent Vital Signs Temp Pulse Resp BP Pulse Ox 36.5 C 52 L 17 141/63 H 100 04/25/23 14:13 04/25/23 14:13 04/25/23 14:13 04/25/23 14:13 04/25/23 14:13 Pain Score Most Recent Pain Score: Most Recent Pain Score Pain Level 0 04/25/23 14:13 Assessment Mental Status: Awake (Alert & Oriented to Patient Baseline) Airway and Respiratory Function: Patent airway with normal (patient baseline) respiratory exam Cardiovascular Function: Hemodynamically Stable Hydration Status: Adequately Hydrated Nausea & Vomiting: No Nausea or Vomiting Pain: Pt. Denies Any Pain Peripheral Nerve Block: Patient did not receive a nerve block
[2023-04-25] MEDS: Oxybutynin 5 MG TAB PO ×2 (14:58→15:00)
[2023-04-25] MEDS: Phenazopyridine 200 MG TAB PO (14:58)
== END 2023-04-25 15:44 | disposition home or self-care (01) ==
PROVIDERS: PCP Nurse Practitioner Family; Visit Provider Urology
PROC: (CPT 52356; principal; 2023-04-25 11:15)
DX: N20.0 Calculus of kidney (principal); E11.9 Type 2 diabetes mellitus without complications; J45.909 Unspecified asthma, uncomplicated; E78.5 Hyperlipidemia, unspecified; F41.8 Other specified anxiety disorders
CPT/HCPCS: 52356; 74420; J1100; J1580; J1885; J2001; J2405; J2704; J3010; Q9967

== ENCOUNTER 2023-05-05 07:01 | Day surgery (SDC) | payer MEDICAID, SELFPAY ==
[2023-05-05] VITALS (8 sets, daily range): BP systolic 103–143; BP diastolic 31–66; PULSE 46–63; RESP 15–20; TEMP 36.3–36.5; O2SAT 96–100; BMI 24.3
--- NOTE | 2023-05-05 06:28 | ANES.PREOP_ITS ---
General Info Date of Service Date Performed: 05/05/23 Height: 5 ft 6 in Weight: 68.3 kg Body Mass Index (BMI): 24.3 Surgical Procedure: Operation Date: 05/05/23 09:10 Proposed Procedure Side Surgeon p Cystoscopy/Retrograde/Ureteroscopy/Removal of Stent Right Mika Sandy MD Meds Allergies and Home Medications Allergies Allergy/AdvReac Type Severity Reaction Status Date / Time amoxicillin Allergy Severe trouble Verified 05/05/23 07:17 breathing and a rash artichoke Allergy Severe ANAPHYLAXIS Verified 05/05/23 07:17 Penicillins Allergy Intermediate HIVES Verified 05/05/23 07:17 sodium hypochlorite solution Allergy Intermediate HIVES/SOB Verified 05/05/23 07:17 [sodium hypochlorite] adhesive tape Allergy Mild Skin Rash Verified 05/05/23 07:17 Home Medication Medication Instructions Recorded pantoprazole 40 mg tablet,delayed 40 mg PO DAILY 05/11/19 release docusate sodium 100 mg capsule 100 mg PO DAILY PRN 08/30/19 sumatriptan succinate 50 mg tablet See Rx Instructions PO .COMPLEX PRN 11/27/19 acetaminophen 500 mg tablet 500 mg PO Q6H PRN pain #60 tabs 05/28/20 loratadine 10 mg capsule 10 mg PO DAILY PRN 01/21/21 albuterol sulfate 90 mcg/actuation 2 inh inhalation Q6H PRN 03/23/21 aerosol inhaler (ProAir HFA) fluticasone propionate 110 1 inh inhalation BID 03/23/21 mcg/actuation HFA aerosol inhaler (Flovent HFA) biotin 1 mg capsule 1 mg PO DAILY 10/22/21 divalproex 250 mg tablet,delayed 250 mg PO BID 10/22/21 release (Depakote) magnesium L-lactate 84 mg 84 mg PO DAILY 10/22/21 tablet,extended release (Magtab) vfstnwlbwvda-Ss-orlx-minerals 18 1 tab PO DAILY 10/22/21 mg-0.4 mg tablet ursodiol 200 mg capsule 250 mg PO DAILY 10/22/21 sucralfate 100 mg/mL oral 10 ml PO BID #200 mL 12/17/21 suspension (Carafate) tramadol 50 mg tablet 50 mg PO Q6H PRN pain #20 tabs 02/25/22 bupropion HCl 300 mg 24 hr tablet, 300 mg PO QAM 06/22/23 extended release cholecalciferol (vitamin D3) 50 50 mcg PO DAILY 01/20/23 mcg (2,000 unit) capsule glyburide 5 mg tablet 5 mg PO DAILY 01/20/23 ibuprofen 600 mg tablet 600 mg PO Q8H PRN 01/20/23 lisinopril 5 mg tablet 5 mg PO DAILY 01/20/23 metoclopramide HCl 10 mg tablet 10 mg PO QAC 01/20/23 trazodone 50 mg tablet 50 mg PO QHS PRN 01/20/23 cyclobenzaprine 5 mg tablet 5 mg PO TID PRN #14 tabs 03/09/23 oxybutynin chloride 5 mg 5 mg PO DAILY #90 tabs 03/14/23 tablet,extended release 24 hr tamsulosin 0.4 mg capsule (Flomax) 0.4 mg PO DAILY #7 caps 04/07/23 Current Visit Medications: Current Medications Generic Name Dose Route Start Last Admin Trade Name Freq PRN Reason Stop Dose Admin Ringer's Solution 1,000 mls @ 80 mls/hr 05/05/23 06:00 IV 06/03/23 23:59 INFUSION CORKY Gentamicin Sulfate 160 mg/ 104 mls @ 208 mls/hr 05/05/23 06:00 Sodium Chloride IVPB 05/05/23 18:00 PREOP CORKY IV Miscellaneous Supplies 1 each 05/05/23 06:00 Iv Access IV 06/03/23 23:59 DIRECTED CORKY Sodium Chloride 0 ml 05/05/23 06:00 Normal Saline Flush 10 Ml Syr IV 06/03/23 23:59 PRN PRN Sodium Chloride 0 ml 05/05/23 06:00 Normal Saline 10 Ml Vial IJ 06/03/23 23:59 DIRECTED PRN Sterile Water 0 ml 05/05/23 06:00 Water,Injection,Sterile 10 Ml Vial IJ 06/03/23 23:59 DIRECTED PRN PFSH Active Problems Active Problems: Problem Status Onset Code Right kidney stone N20.0 Anxiety and depression 02/12/14 F41.9, F32.9 Diabetes 02/12/14 E11.9 Elevated lipids 02/12/14 E78.5 Migraine 02/12/14 G43.909 Numbness of left hand 07/04/17 R20.0 Tubular adenoma of colon 11/26/16 D12.6 Carpal tunnel syndrome on both sides G56.03 Medial epicondylitis, left elbow M77.02 CHAPARRO (nonalcoholic steatohepatitis) K75.81 Viral illness B34.9 Migraine headache without aura G43.009 Right lateral epicondylitis M77.11 Medial epicondylitis, right elbow M77.01 Cubital tunnel syndrome on right G56.21 Right wrist sprain S63.501A Contusion of right forearm S50.11XA Sprain of right elbow S53.401A Bradycardia R00.1 Vomiting R11.10 Hematemesis K92.0 Sinus bradycardia R00.1 Hypokalemia E87.6 Fall W19.XXXA Seizure disorder G40.909 Bipolar 1 disorder F31.9 Gastric bypass status for obesity Z98.84 Chest pain R07.9 Left ankle sprain S93.402A Arm paresthesia, right R20.2 Bilateral kidney stones N20.0 Screening for colon cancer Z12.11 Psychogenic nonepileptic seizure F44.5 Right carpal tunnel syndrome G56.01 Ureterolithiasis N20.1 Medical History Medical History Absence seizure Pt. states they happened more when she was overweight, has not had one in 1.5 years Adrenal abnormality Anxiety and depression Asthma Cervical cancer Chronic back pain Cubital tunnel syndrome Depressive disorder Diabetes mellitus, type 2 Elevated lipids Family history of attention deficit hyperactivity disorder GERD (gastroesophageal reflux disease) Hypertension Kidney stone Lumbar disc herniation Macromastia Medial epicondylitis of elbow Migraine Obesity Obstructive sleep apnea syndrome pt. states she does not have this anymore r/t to gastric bypass Polycystic ovaries Snoring Spinal stenosis Medical History Comments:: adhesive tape allergy Surgical History Surgical History (Updated 05/05/23 @ 07:17 by Tu Plascencia) anterior cruciate ligament reconstruction section twice Colonoscopy - MAC (02/18/23) 11/26/2016 Cubital tunnel syndrome on left (09/14/17) 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 (Date of Surgery: 03/02/18 and 10/02/2019) EGD - MAC (11/26/16) Endoscopic Carpal Tunnel release (01/14/09) 09/16/2010 REPEAT ECTR RIGHT H/O gastric bypass History of lumbar surgery Pt reports lower back disc, rods and screws 5 years ago, 2017' Hx of tonsillectomy Ligation of fallopian tube Open Carpal Tunnel release (10/23/12) RIGHT SIDE, left 8.14.14 Vaginal hysterectomy Tobacco Smoking/Tobacco Use Status: Former Tobacco Use Alcohol Alcohol Intake: never Substance Use Substance use: Never Substance use type: does not use Vital Signs and Lab Results Vital Signs Most Recent Vital Signs in EMR: Temp Pulse Resp BP Pulse Ox 36.4 C L 62 16 121/43 L 98 05/05/23 07:18 05/05/23 07:18 05/05/23 07:18 05/05/23 07:18 05/05/23 07:18 Lab Results Blood Type / Crossmatch: No Data to Display Complete Blood Count: No Data to Display Complete Metabolic Panel: Sodium 144 mmol/L (136-145) 04/07/23 16:30 Potassium 3.6 mmol/L (3.5-5.1) 04/07/23 16:30 Chloride 106 mmol/L (98-107) 04/07/23 16:30 Carbon Dioxide 30.2 mmol/L (21.0-32.0) 04/07/23 16:30 BUN 10 mg/dL (7-18) 04/07/23 16:30 Creatinine 0.8 mg/dL (0.55-1.02) 04/07/23 16:30 Est GFR (CKD-EPI 2020) 95.46 (mL/min/1.73m2) 04/07/23 16:30 Calcium 9.7 mg/dL (8.5-10.1) 04/07/23 16:30 Albumin 4.3 g/dL (3.4-5.0) 04/07/23 16:30 Glucose 64 mg/dL (74-106) L 04/07/23 16:30 Liver Function Panel: Alanine Aminotransferase (ALT/SGPT) 24 U/L (14-59) 04/07/23 16: 30 Aspartate Amino Transf (AST/SGOT) 16 U/L (15-37) 04/07/23 16:30 Coagulation Panel: No Data to Display Cardiac Panel: No Data to Display Arterial Blood Gas: No Data to Display Venous Blood Gas: No Data to Display Pancreas Panel: Lipase 29 U/L (16-77) 04/07/23 16:30 Thyroid Panel: No Data to Display Infectious Disease: No Data to Display Blood Cultures: No Data to Display Toxicology Panel: No Data to Display Panel: No Data to Display Imaging and Studies Imaging and Studies Study information below may be from another EMR and interpreted by another miya leiva. Please see original notes in EMR for more complete details. EKG Summary: 04/23: sinus dara. Anesthesia Assessment and Plan Anesthesia History Personal History: No History of Anesthesia Complications Family History: No Family History of Anesthesia Complications Exercise Tolerance Exercise Tolerance: Metabolic Equivalents>4 Cardiac & Pulmonary Exam Cardiac Exam: Normal S1/S2 Heart Sounds Pulmonary Exam: Clear Bilateral Breath Sounds Implantable Cardiac Device Does patient have a Pacemaker or an ICD?: No Airway Exam Known Difficult Airway: No Mallampati Class: 2 Mouth Opening: Normal (> 3cm) Thyromental Distance: Greater than 3 cm Neck Range of Motion: Full ROM Neck Circumference: Normal Teeth Condition: Normal Dentition and Other (tongue ring non-removable) ASA Classification ASA Score: ASA 2 Emergency Case?: No NPO Status NPO Status: NPO Clears >2 hours, Solids >8 hours Status Status: Negative HCG Anesthesia Plan Resuscitation Status: Full Code Anesthesia Technique: General Anesthesia Airway Planned: LMA Monitors Used: Standard Monitors Preoperative Comments:: 42 yo female for cysto. Denies any health history change since her last visit. Sig PMHx: asthma, HTN, DM, CHAPARRO, absence SZ, s/p GBypass, Previous Anes: - EGD/colo, fent, midaz, prop, natural airway no issues. - LMA 5 - LMA 4 - LMA 3 Tongue ring does not come out, understands risks.
[2023-05-05] MEDS: Lactated Ringers 1,000 ML 80 ML IV (07:40)
--- NOTE | 2023-05-05 07:58 | HPE_ITS ---
Date of service: 05/05/23 Time of Service: 07:58 Assessment and Plan Assessment and plan (1) Right kidney stone: Status: Acute Assessment and plan: We will plan to remove her ureteral stent and redo ureteroscopy to ensure all stone fragments had been cleared. History of Present Illness History of Present Illness Chief Complaint: Right kidney stones Narrative: This is a 42-year-old woman who was previously seen with right kidney stones. We did ureteroscopy expecting the find a large upper pole stone. Instead, we found multiple small stones that were amenable to holmium laser lithotripsy. We also incised the renal papilla as a seem to be a stone ready to come through into the collecting system. We placed a ureteral stent. She returns now for stent removal and repeat ureteroscopy to ensure all stone fragments had been cleared. Her stones had been 100% calcium oxalate monohydrate. We have not done 24-hour urine studies on the patient previously. She has had urinary frequency, urgency, hematuria and flank pain since placement of her stent. She has not had fevers or chills. Review of Systems Narrative: No fevers or chills No vision change or dysphasia Hx Diabetes. No thyroid dysfunction No shortness of breath, cough or hemoptysis No chest pain or palpitations s/p gastric bypass. No nausea, vomiting, hepatitis, ulcers, jaundice No seizures, strokes or peripheral neuropathy No bleeding disorders or anemia Hx carpal tunnel syndrome. No gout PFSH All Active Problems Anxiety and depression (Acute 02/12/14) Diabetes (Acute 02/12/14) diet controlled Elevated lipids (Acute 02/12/14) Migraine (Acute 02/12/14) Numbness of left hand (Acute 07/04/17) Tubular adenoma of colon (Acute 11/26/16) Carpal tunnel syndrome on both sides (Acute) Medial epicondylitis, left elbow (Acute) CHAPARRO (nonalcoholic steatohepatitis) (Acute) Viral illness (Acute) Migraine headache without aura (Acute) Right lateral epicondylitis (Acute) Medial epicondylitis, right elbow (Acute) Cubital tunnel syndrome on right (Acute) Right wrist sprain (Acute) Contusion of right forearm (Acute) Sprain of right elbow (Acute) Bradycardia (Acute) Vomiting (Acute) Hematemesis (Acute) Sinus bradycardia (Acute) Hypokalemia (Acute) Fall (Acute) Seizure disorder (Chronic) Bipolar 1 disorder (Acute) Gastric bypass status for obesity (Acute) Chest pain (Acute) Left ankle sprain (Acute) Arm paresthesia, right (Acute) Bilateral kidney stones (Acute) Screening for colon cancer (Acute) Psychogenic nonepileptic seizure (Acute) Right carpal tunnel syndrome (Acute) Ureterolithiasis (Acute) Right kidney stone (Acute) Medical History Absence seizure Pt. states they happened more when she was overweight, has not had one in 1.5 years Adrenal abnormality Anxiety and depression Asthma Cervical cancer Chronic back pain Cubital tunnel syndrome Depressive disorder Diabetes mellitus, type 2 Elevated lipids Family history of attention deficit hyperactivity disorder GERD (gastroesophageal reflux disease) Hypertension Kidney stone Lumbar disc herniation Macromastia Medial epicondylitis of elbow Migraine Obesity Obstructive sleep apnea syndrome pt. states she does not have this anymore r/t to gastric bypass Polycystic ovaries Snoring Spinal stenosis Surgical History (Updated 05/05/23 @ 07:17 by Tu Plascencia) anterior cruciate ligament reconstruction section twice Colonoscopy - MAC (02/18/23) 11/26/2016 Cubital tunnel syndrome on left (09/14/17) 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 (Date of Surge ry: 03/02/18 and 10/02/2019) EGD - MAC (11/26/16) Endoscopic Carpal Tunnel release (01/14/09) 09/16/2010 REPEAT ECTR RIGHT H/O gastric bypass History of lumbar surgery Pt reports lower back disc, rods and screws 5 years ago, 2017' Hx of tonsillectomy Ligation of fallopian tube Open Carpal Tunnel release (10/23/12) RIGHT SIDE, left 8.14.14 Vaginal hysterectomy Social History Smoking/Tobacco Use Status: Former Tobacco Use Quit Date: 08/01/05 Smoking risk assessment performed?: Yes Alcohol Intake: never Drug use: Never Substance use type: does not use Household members: spouse and children Housing: house Current gender identity: female What is your relationship status?: Panel score (0-1 are the most socially isolated patients): 1 Seatbelt use: always Additional Social history: unable to assess privately Meds Allergies and Home Medications Allergies Allergy/AdvReac Type Severity Reaction Status Date / Time amoxicillin Allergy Severe trouble Verified 05/05/23 07:17 breathing and a rash artichoke Allergy Severe ANAPHYLAXIS Verified 05/05/23 07:17 Penicillins Allergy Intermediate HIVES Verified 05/05/23 07:17 sodium hypochlorite solution Allergy Intermediate HIVES/SOB Verified 05/05/23 07:17 [sodium hypochlorite] adhesive tape Allergy Mild Skin Rash Verified 05/05/23 07:17 Home Medications Medication Instructions Recorded Confirmed Type pantoprazole 40 mg tablet,delayed 40 mg PO DAILY 05/11/19 05/04/23 History release docusate sodium 100 mg capsule 100 mg PO DAILY PRN 08/30/19 05/04/23 History sumatriptan succinate 50 mg tablet See Rx Instructions PO .COMPLEX PRN 11/27/19 05/04/23 History acetaminophen 500 mg tablet 500 mg PO Q6H PRN pain #60 tabs 05/28/20 05/04/23 Rx loratadine 10 mg capsule 10 mg PO DAILY PRN 01/21/21 05/04/23 History albuterol sulfate 90 mcg/actuation 2 inh inhalation Q6H PRN 03/23/21 05/04/23 History aerosol inhaler (ProAir HFA) fluticasone propionate 110 1 inh inhalation BID 03/23/21 05/04/23 History mcg/actuation HFA aerosol inhaler (Flovent HFA) biotin 1 mg capsule 1 mg PO DAILY 10/22/21 05/04/23 History divalproex 250 mg tablet,delayed 250 mg PO BID 10/22/21 05/04/23 History release (Depakote) magnesium L-lactate 84 mg 84 mg PO DAILY 10/22/21 05/04/23 History tablet,extended release (Magtab) cduxypcyepjl-Hl-vowq-minerals 18 1 tab PO DAILY 10/22/21 05/04/23 History mg-0.4 mg tablet ursodiol 200 mg capsule 250 mg PO DAILY 10/22/21 05/04/23 History sucralfate 100 mg/mL oral 10 ml PO BID #200 mL 12/17/21 05/04/23 Rx suspension (Carafate) tramadol 50 mg tablet 50 mg PO Q6H PRN pain #20 tabs 02/25/22 05/04/23 Rx bupropion HCl 300 mg 24 hr tablet, 300 mg PO QAM 01/20/23 05/04/23 History extended release cholecalciferol (vitamin D3) 50 50 mcg PO DAILY 01/20/23 05/04/23 History mcg (2,000 unit) capsule glyburide 5 mg tablet 5 mg PO DAILY 01/20/23 05/04/23 History ibuprofen 600 mg tablet 600 mg PO Q8H PRN 01/20/23 05/04/23 History lisinopril 5 mg tablet 5 mg PO DAILY 01/20/23 05/04/23 History metoclopramide HCl 10 mg tablet 10 mg PO QAC 01/20/23 05/04/23 History trazodone 50 mg tablet 50 mg PO QHS PRN 01/20/23 05/04/23 History cyclobenzaprine 5 mg tablet 5 mg PO TID PRN #14 tabs 03/09/23 05/04/23 Rx oxybutynin chloride 5 mg 5 mg PO DAILY #90 tabs 03/14/23 05/04/23 Rx tablet,extended release 24 hr tamsulosin 0.4 mg capsule (Flomax) 0.4 mg PO DAILY #7 caps 04/07/23 05/04/23 Rx Exam Const General: cooperative Neck Neck: supple Resp Effort & Inspection: normal respiratory effort Auscultation: clear to auscultation bilaterally Cardio Rate: regular rate Rhythm: regular rhythm GI Palpation: soft and no masses Neuro General: patient alert, patient awake and patient oriented x3 Results Last Vital Signs Temp 36.4 C L 05/05/23 07:18 Pulse 62 05/05/23 07:18 Resp 16 05/05/23 07:18 BP 121/43 L 05/05/23 07:18 Pulse Ox 98 05/05/23 07:18 Time Spent Time spent with Patient: <40 minutes Time was spent: care coordination
--- NOTE | 2023-05-05 08:15 | DI.RAD_ITS ---
Exam(s) XR RETROGRADE IN OR EXAM: XR RETROGRADE IN OR CLINICAL HISTORY: Right kidney stone. TECHNIQUE: 2D digital imaging was performed. COMPARISON: No exams were available for comparison FINDINGS: Fluoroscopy provided during urologic procedure. See procedure report for details. Total fluoroscopy time 9 seconds IMPRESSION: Radiation exposure index/cumulative dose: fang Elizabeth= 1.4mGy DATA REPOSITORY: RADIATION DOSE DELIVERED:
[2023-05-05] MEDS: GENTAMICIN 160 MG in Normal Saline 100 ML 208 MG IVPB (08:39)
[2023-05-05] MEDS: Lidocaine 2% Jelly 6 ML SYR (08:54)
[2023-05-05] MEDS: Omnipaque 300 MG/ML 50 ML BTL (09:04)
--- NOTE | 2023-05-05 09:19 | W.PM.DSUDISC ---
Date of service: 05/05/23 Time of Service: 09:19 Discharge Plan Disposition Patient Disposition: Home Condition: Stable Discharge Details Reason For Visit: ureteroscopy Attending Provider: Mika Sandy Primary Care Provider: Deyanira Marcus Home Meds and New Rx's Prescriptions: Discontinued tamsulosin [Flomax] 0.4 mg capsule 0.4 mg PO DAILY Qty: 7 0RF No Action docusate sodium 100 mg capsule 100 mg PO DAILY PRN oxybutynin chloride 5 mg tablet extended release 24hr 5 mg PO DAILY Qty: 90 1RF Rx Instructions: Note change to 1 tab daily sumatriptan succinate 50 mg tablet See Rx Instructions PO .COMPLEX PRN Rx Instructions: take 1 tab at onset of headache; if no relief may repeat 1 tab after at least 2 hrs; max = 4 tabs/24 hr PO albuterol sulfate [ProAir HFA] 90 mcg/actuation HFA aerosol inhaler 2 inh inhalation Q6H PRN fluticasone propionate [Flovent HFA] 110 mcg/actuation HFA aerosol inhaler 1 inh inhalation BID ursodiol 200 mg capsule 250 mg PO DAILY magnesium L-lactate [Magtab] 84 mg tablet extended release 84 mg PO DAILY biotin 1 mg capsule 1 mg PO DAILY divalproex [Depakote] 250 mg tablet,delayed release (DR/EC) 250 mg PO BID Patient Comments: taking once daily, in am ooxlckugerly-Qu-oqpi-minerals 18-0.4 mg tablet 1 tab PO DAILY bupropion HCl 300 mg tablet extended release 24 hr 300 mg PO QAM cholecalciferol (vitamin D3) 50 mcg (2,000 unit) capsule 50 mcg PO DAILY glyburide 5 mg tablet 5 mg PO DAILY ibuprofen 600 mg tablet 600 mg PO Q8H PRN Patient Comments: not taking lisinopril 5 mg tablet 5 mg PO DAILY metoclopramide HCl 10 mg tablet 10 mg PO QAC Rx Instructions: administer 30 minutes before meals trazodone 50 mg tablet 50 mg PO QHS PRN pantoprazole 40 mg Tablet,Delayed Release (Dr/Ec) 40 mg PO DAILY loratadine 10 mg capsule 10 mg PO DAILY PRN sucralfate [Carafate] 100 mg/mL suspension 10 ml PO BID Qty: 200 1RF acetaminophen 500 mg tablet 500 mg PO Q6H PRN (Reason: pain) Qty: 60 0RF tramadol 50 mg tablet 50 mg PO Q6H MDD 4 PRN (Reason: pain) Qty: 20 0RF Rx Instructions: may take along with Tylenol cyclobenzaprine 5 mg tablet 5 mg PO TID PRNQty: 14 0RF Discharge Instructions Additional Instructions: no need to strain urine followup 6 to 8 weeks for renal US in office may return to work 05/10 Activity:: Activity as Tolerated Shower/Bathe:: 24 hours Diet:: As Tolerated Discharge Orders Discharge Orders: Discharge Order (Routine); Ordered 05/05/23 Ordered By: Mika Sandy DS: Diagnosis Discharge Diagnosis (1) Right kidney stone: Status: Acute
--- NOTE | 2023-05-05 09:26 | W.PM.OP ---
Date of service: 05/05/23 Time of Service: 09:26 Operative Note Operative Note DATE OF PROCEDURE: 05/05/23 PRE-OP DIAGNOSIS: Right kidney stones POST-OP DIAGNOSIS: same PROCEDURE: Cystoscopy, remove right ureteral stent, right retrograde pyelogram, right ureteroscopy SURGEON: Mika Sandy ANESTHESIA TYPE: Local By Surgeon and General LMA/ETT Refer to Anesthesia Record ESTIMATED BLOOD LOSS: 0 PATHOLOGY: none sent COMPLICATIONS: None Patient was transported to: PACU Patient's condition: stable Implants: none Indications: This is a 42-year-old woman who has a history of calcium oxalate monohydrate stones. Based on imaging studies, there appeared to be a large stone in the right upper pole calyx. We then did ureteroscopy but instead of one single large stone, we found multiple smaller stones in the same location. The stones were treated with the holmium laser lithotripsy. A stent was then placed. She presents now for repeat ureteroscopy to ensure all of her stones have been addressed. Findings: No large residual stone burden Few small clots in the upper pole collecting system Procedure Description: The patient was brought to the operating room on 05/05/2023. She was given preoperative IV antibiotics. After successful induction of general anesthesia, she was placed in the dorsal lithotomy position. Her genitalia was prepped and draped. A 22 Setswana rigid cystoscope was passed through the urethra into the bladder. The bladder was inspected with a 30 degree lens. A stent could be seen protruding from the right ureteral orifice. Bullous edema was seen at the orifice surrounding the stent. The stent was grasped and flexible forceps and brought to the level of the urethral meatus. A Glidewire was advanced through the lumen of the stent and the stent was removed. A dual-lumen catheter was advanced over the wire and a retrograde pyelogram was obtained by injecting Omnipaque through the second lumen. The retrograde pyelogram was done under fluoroscopy and allowed us to outline each of the calyces. A second wire was then positioned and the dual-lumen catheter was removed. We chose one of the wires as a working wire and the other as a safety wire. The flexible ureteroscope was advanced over the working wire leaving the safety wire in place. Each of the calyces were then inspected. In the upper pole calyces, there were a few small clots with adherent stone. These clots were removed using a 0 tip stone basket. No large stone burden was identified. The ureteroscope was then removed as was the safety wire. The patient tolerated the procedure well with no complications.
--- NOTE | 2023-05-05 09:49 | W.ANESPOSTOP ---
Postoperative Evaluation Date, Time and Location Date Performed: 05/05/23 Time Performed: 09:50 Patient Location: PACU Vital Signs Most Recent Imported Vital Signs: Most Recent Vital Signs Temp Pulse Resp BP Pulse Ox 36.5 C 54 L 17 103/53 L 97 05/05/23 09:42 05/05/23 09:42 05/05/23 09:42 05/05/23 09:42 05/05/23 09:42 Pain Score Most Recent Pain Score: Most Recent Pain Score Pain Level 0 05/05/23 07:18 Assessment Mental Status: Awake (Alert & Oriented to Patient Baseline) Airway and Respiratory Function: Patent airway with normal (patient baseline) respiratory exam Cardiovascular Function: Hemodynamically Stable Hydration Status: Adequately Hydrated Nausea & Vomiting: No Nausea or Vomiting Pain: Pain is tolerable per patient Peripheral Nerve Block: Patient did not receive a nerve block
[2023-05-05] MEDS: Phenazopyridine 200 MG TAB PO (10:22)
[2023-05-05] MEDS: traMADol 50 MG TAB PO (10:22)
== END 2023-05-05 10:50 | disposition home or self-care (01) ==
PROVIDERS: PCP Nurse Practitioner Family; Visit Provider Urology
PROC: (CPT 52352; principal; 2023-05-05 09:00)
DX: N20.0 Calculus of kidney (principal)
CPT/HCPCS: 52352; 81025; 74420; J1100; J1580; J1885; J2001; J2405; J2704; Q9967

== ENCOUNTER → 2023-06-15 01:50 | Outpatient (CLI) | payer MEDICAID, SELFPAY ==
--- NOTE | 2023-06-15 08:00 | DI.US_ITS ---
Exam(s) US RENAL EXAM: US RENAL CLINICAL HISTORY: ? hydro post surgery,rt kidney stone,n20.0. TECHNIQUE: Abel scale, color and spectral Doppler were used. COMPARISON: CT CT RENAL COLIC WO from 02/26/2022 US US RENAL from 05/18/2022 US US RENAL from 04/07/2023 XA XR RETROGRADE IN OR from 04/25/2023 XA XR RETROGRADE IN OR from 05/05/2023 FINDINGS: Renal size in cm: Right: Left: Echogenicity: Normal Hydronephrosis: Minimal right pelvic dilatation. Cyst or mass: No Nephrolithiasis: 4 millimeter echogenic focus superior pole right kidney. 2 millimeters stone mid le ft kidney Bladder:11 cc. IMPRESSION: Minimal dilatation of the right renal pelvis. Small bilateral renal calculi. DATA REPOSITORY:
== END ==
PROVIDERS: PCP Nurse Practitioner Family; Visit Provider Urology
DX: N20.0 Calculus of kidney (principal)
CPT/HCPCS: 76770

== ENCOUNTER 2023-07-06 22:31 | Emergency (ER) | payer MEDICAID, SELFPAY ==
[2023-07-06] VITALS (12 sets, daily range): BP systolic 100–119; BP diastolic 26–61; PULSE 51–69; RESP 18–19; TEMP 36.1–36.2; O2SAT 98–100
--- NOTE | 2023-07-06 22:59 | ED.GENADUL_ITS ---
Discharge Plan Disposition Patient Disposition: Home Discharge Details Clinical Impression: Viral gastroenteritis, Abdominal pain Primary Care Provider: Deyanira Marcus ED Provider: Shlomo Blanco Home Meds and New Rx's Prescriptions: Continued oxybutynin chloride 5 mg tablet extended release 24hr 5 mg PO DAILY Qty: 90 1RF Rx Instructions: Note change to 1 tab daily sumatriptan succinate 50 mg tablet See Rx Instructions PO .COMPLEX PRN Rx Instructions: take 1 tab at onset of headache; if no relief may repeat 1 tab after at least 2 hrs; max = 4 tabs/24 hr PO albuterol sulfate [ProAir HFA] 90 mcg/actuation HFA aerosol inhaler 2 inh inhalation Q6H PRN fluticasone propionate [Flovent HFA] 110 mcg/actuation HFA aerosol inhaler 1 inh inhalation BID ursodiol 200 mg capsule 250 mg PO DAILY magnesium L-lactate [Magtab] 84 mg tablet extended release 84 mg PO DAILY biotin 1 mg capsule 1 mg PO DAILY divalproex [Depakote] 250 mg tablet,delayed release (DR/EC) 250 mg PO BID Patient Comments: taking once daily, in am notlkvwpnoti-Kz-feec-minerals 18-0.4 mg tablet 1 tab PO DAILY bupropion HCl 300 mg tablet extended release 24 hr 300 mg PO QAM cholecalciferol (vitamin D3) 50 mcg (2,000 unit) capsule 50 mcg PO DAILY glyburide 5 mg tablet 5 mg PO DAILY lisinopril 5 mg tablet 5 mg PO DAILY metoclopramide HCl 10 mg tablet 10 mg PO QAC Rx Instructions: administer 30 minutes before meals trazodone 50 mg tablet 50 mg PO QHS PRN pantoprazole 40 mg Tablet,Delayed Release (Dr/Ec) 40 mg PO DAILY loratadine 10 mg capsule 10 mg PO DAILY PRN sucralfate [Carafate] 100 mg/mL suspension 10 ml PO BID Qty: 200 1RF acetaminophen 500 mg tablet 500 mg PO Q6H PRN (Reason: pain) Qty: 60 0RF cyclobenzaprine 5 mg tablet 5 mg PO TID PRNQty: 14 0RF Discharge Instructions Instructions: Gastroenteritis (ED) Additional Instructions: You were seen in the emergency department for nausea vomiting and abdominal pain. We performed labs that were unremarkable. We performed a CAT scan with oral and IV contrast and this was also unremarkable. He likely have a viral gastroenteritis or viral GI bug. This should improve over the next few days. Drink plenty of fluids to stay hydrated. I offered to prescribe you nausea medications but you said you had some at home. Follow-up with your primary care doctor soon as possible. Return to the emergency department if you develop worsening abdominal pain, nausea, vomiting, or any other symptoms that are worrisome to you. Medical Decision Making 43-year-old female history of gastric bypass 2 years ago with some esophageal strictures subsequently requiring dilatation is now presenting with nausea vomiting and abdominal pain. Certainly concerning for a possible partial small bowel obstruction given her history. She says that when she had the esophageal strictures she could immediately feel the food gets stuck in her chest and immediately vomit. Says this feels very different and she can feel the food get to her stomach but then she gets nauseous and vomits. She is still pooping and farting and she is nondistended so I think it is unlikely that she has a complete bowel obstruction. Still could represent partial bowel obstruction will get CT abdomen pelvis with oral contrast to further evaluate. Doubt intra- abdominal abscess given no significant tenderness on examination but this will certainly be evaluated on the CT abdomen pelvis. Will get biliary labs to look for signs of hepatitis, pancreatitis, or other biliary disease. Will swab for COVID and flu. Will give some IV fluids and nausea medications while awaiting initial testing and reevaluate. 0140am Labs and CT unremarkable. Patient improved here and tolerating p.o. Would like to leave. Likely a viral gastroenteritis. Do not think that this is related to an esophageal stricture but she can follow-up with her primary care doctor and I have instructed her to do this is soon as possible. Patient agreeable with plan. Will discharge with return precautions. Imaging Data Radiologic Study: Attestation: I personally reviewed and interpreted this imaging study as follows: Imaging: CT Scan (abdomen and pelvis) Radiologist's impression: CT abdomen pelvis with IV and oral contrast is unremarkable Lab Data Lab results reviewed: Yes I reviewed the patient's lab results. HPI General Mode of arrival: ambulatory . Date/Time Provider Initiated Documentation: 07/06/23 22:39 . Limitations to Documentation: no limitations . Information obtained by: patient . HPI Narrative: 43-year-old female history of absence seizure's, migraines, hypertension, hyperlipidemia, Robert-en-Y gastric bypass 2 years ago complicated by some esophageal strictures requiring some dilatations is now presenting with nausea and vomiting. Has been going on for 2 days. Started with an upper abdominal pressure. She says it does not feel like her previous esophageal strictures. Feels like the food gets into her stomach but then she immediately ends up vomiting. She is taking liquids well. She is still pooping with no diarrhea or constipation. Still passing gas. No black or bloody stools. No urinary symptoms. No vaginal bleeding or discharge. She has got subjective fevers and chills but no fevers at home when checking her temperature. No other recent surgeries or procedures. She denies any other complaints. Related Data Home Medications Medication Instructions Recorded Confirmed pantoprazole 40 mg tablet,delayed 40 mg PO DAILY 05/11/19 07/06/23 release sumatriptan succinate 50 mg tablet See Rx Instructions PO .COMPLEX PRN 11/27/19 07/06/23 acetaminophen 500 mg tablet 500 mg PO Q6H PRN pain #60 tabs 05/28/20 07/06/23 loratadine 10 mg capsule 10 mg PO DAILY PRN 01/21/21 07/06/23 albuterol sulfate 90 mcg/actuation 2 inh inhalation Q6H PRN 03/23/21 07/06/23 aerosol inhaler (ProAir HFA) fluticasone propionate 110 1 inh inhalation BID 03/23/21 07/06/23 mcg/actuation HFA aerosol inhaler (Flovent HFA) biotin 1 mg capsule 1 mg PO DAILY 10/22/21 07/06/23 divalproex 250 mg tablet,delayed 250 mg PO BID 10/22/21 07/06/23 release (Depakote) magnesium L-lactate 84 mg 84 mg PO DAILY 10/22/21 07/06/23 tablet,extended release (Magtab) irpsuhbjmzte-Bn-zstx-minerals 18 1 tab PO DAILY 10/22/21 07/06/23 mg-0.4 mg tablet ursodiol 200 mg capsule 250 mg PO DAILY 10/22/21 07/06/23 sucralfate 100 mg/mL oral 10 ml PO BID #200 mL 12/17/21 07/06/23 suspension (Carafate) bupropion HCl 300 mg 24 hr tablet, 300 mg PO QAM 01/20/23 07/06/23 extended release cholecalciferol (vitamin D3) 50 50 mcg PO DAILY 01/20/23 07/06/23 mcg (2,000 unit) capsule glyburide 5 mg tablet 5 mg PO DAILY 01/20/23 07/06/23 lisinopril 5 mg tablet 5 mg PO DAILY 01/20/23 07/06/23 metoclopramide HCl 10 mg tablet 10 mg PO QAC 01/20/23 07/06/23 trazodone 50 mg tablet 50 mg PO QHS PRN 01/20/23 07/06/23 cyclobenzaprine 5 mg tablet 5 mg PO TID PRN #14 tabs 03/09/23 07/06/23 oxybutynin chloride 5 mg 5 mg PO DAILY #90 tabs 03/14/23 07/06/23 tablet,extended release 24 hr Previous Rx's Medication Instructions Recorded acetaminophen 500 mg tablet 500 mg PO Q6H PRN pain #60 tabs 05/28/20 sucralfate 100 mg/mL oral 10 ml PO BID #200 mL 12/17/21 suspension (Carafate) cyclobenzaprine 5 mg tablet 5 mg PO TID PRN #14 tabs 03/09/23 oxybutynin chloride 5 mg 5 mg PO DAILY #90 tabs 03/14/23 tablet,extended release 24 hr Allergies Allergy/AdvReac Type Severity Reaction Status Date / Time amoxicillin Allergy Severe trouble Verified 07/06/23 22:46 breathing and a rash artichoke Allergy Severe ANAPHYLAXIS Verified 07/06/23 22:46 Penicillins Allergy Intermediate HIVES Verified 07/06/23 22:46 sodium hypochlorite solution Allergy Intermediate HIVES/SOB Verified 07/06/23 22:46 [sodium hypochlorite] adhesive tape Allergy Mild Skin Rash Verified 07/06/23 22:46 ibuprofen AdvReac Severe GI Bleeding Unverified 07/06/23 22:46 General Stated Complaint: Abd Prob MIKE: 3 Review of Systems Constitutional Constitutional: Reports chills, Reports fever(s) and Denies headache(s) Eyes Eyes: Denies change in vision ENT Ears, Nose, Mouth, and Throat: Denies headache(s) and Denies odynophagia Cardiovascular Cardiovascular: Denies chest pain and Denies dyspnea Respiratory Respiratory: Denies dyspnea Gastrointestinal Gastrointestinal: Reports abdominal pain, Denies diarrhea, Reports nausea, Denies odynophagia and Reports vomiting Genitourinary Genitourinary: Denies dysuria Musculoskeletal Musculoskeletal: Denies myalgias Integumentary/Breasts Skin/Breast: Denies changing lesions Neurologic Neurologic: Denies behavioral changes and Denies headache(s) Psychiatric Psychiatric: Denies behavioral changes Endocrine Endocrine: Denies heat intolerance Hematologic/Lymphatic Hematologic/Lymphatic: Denies lymphadenopathy PFSH All Active Problems (Updated 07/07/23 @ 01:39 by Shlomo Blanco MD) Abdominal pain (Acute) Viral gastroenteritis (Acute) Anxiety and depression (Acute 02/12/14) Diabetes (Acute 02/12/14) diet controlled Elevated lipids (Acute 02/12/14) Migraine (Acute 02/12/14) Numbness of left hand (Acute 07/04/17) Tubular adenoma of colon (Acute 11/26/16) Carpal tunnel syndrome on both sides (Acute) Medial epicondylitis, left elbow (Acute) CHAPARRO (nonalcoholic steatohepatitis) (Acute) Viral illness (Acute) Migraine headache without aura (Acute) Right lateral epicondylitis (Acute) Medial epicondylitis, right elbow (Acute) Cubital tunnel syndrome on right (Acute) Right wrist sprain (Acute) Contusion of right forearm (Acute) Sprain of right elbow (Acute) Bradycardia (Acute) Vomiting (Acute) Hematemesis (Acute) Sinus bradycardia (Acute) Hypokalemia (Acute) Fall (Acute) Seizure disorder (Chronic) Bipolar 1 disorder (Acute) Gastric bypass status for obesity (Acute) Chest pain (Acute) Left ankle sprain (Acute) Arm paresthesia, right (Acute) Bilateral kidney stones (Acute) Screening for colon cancer (Acute) Psychogenic nonepileptic seizure (Acute) Right carpal tunnel syndrome (Acute) Right kidney stone (Acute) Medical History Absence seizure Pt. states they happened more when she was overweight, has not had one in 1.5 years Hypertension Medial epicondylitis of elbow Spinal stenosis Snoring Obesity Family history of attention deficit hyperactivity disorder Macromastia Cubital tunnel syndrome Lumbar disc herniation Depressive disorder Adrenal abnormality Chronic back pain Cervical cancer GERD (gastroesophageal reflux disease) Kidney stone Asthma Diabetes mellitus, type 2 Polycystic ovaries Migraine Obstructive sleep apnea syndrome pt. states she does not have this anymore r/t to gastric bypass Elevated lipids Anxiety and depression Surgical History Hx of tonsillectomy History of lumbar surgery Pt reports lower back disc, rods and screws 5 years ago, 2017' H/O gastric bypass Cubital tunnel syndrome on left (09/14/17) 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 (Date of Surgery: 03/02/18 and 10/02/2019) anterior cruciate ligament reconstruction Ligation of fallopian tube Open Carpal Tunnel release (10/23/12) RIGHT SIDE, left 8.14.14 Vaginal hysterectomy Endoscopic Carpal Tunnel release (01/14/09) 09/16/2010 REPEAT ECTR RIGHT EGD - MAC (11/26/16) Colonoscopy - MAC (02/18/23) 11/26/2016 section twice Social History Smoking/Tobacco Use Status: Former Tobacco Use Quit Date: 08/01/05 Smoking risk assessment performed?: Yes Alcohol Intake: never Drug use: Never Substance use type: does not use Household members: spouse and children Housing: house Current gender identity: female What is your relationship status?: Panel score (0-1 are the most socially isolated patients): 1 Seatbelt use: always Do you feel safe at home: Yes Do you feel safe in your relationship?: Yes Exam Const General: cooperative Nutritional Appearance: average body habitus Orientation: alert, awake and oriented x3 HENMT Head: normal to inspection Ears: external ears normal Mouth: moist mucous membranes Eyes Pupils: PERRL EOM: EOM intact bilaterally and No nystagmus Neck Neck: full ROM and no tracheal deviation Chest Chest: normal inspection of the chest Resp Auscultation: clear to auscultation bilaterally Cardio Rate: regular rate Rhythm: regular rhythm GI Inspection: normal to inspection Palpation: soft, no guarding and not rigid Other: Reporting some epigastric abdominal pain but no tenderness on examination. No guarding, rigidity, or rebound. Abdomen is not distended. Otherwise unremarkable abdominal exam. Back/Spine/Pelvis Back: No no CVA tenderness Thoracic/Lumbar Spine: thoracic and lumbar spine normal to inspection Skin General skin exam: no rashes or lesions noted Neuro General: patient alert, patient awake and patient oriented x3 Cranial Nerves: CN's II-XI intact bilaterally, PERRL and no nystagmus Cognition: normal cognition Motor: muscle tone normal throughout and strength 5/5 throughout Sensory Exam: no sensory deficits noted Extrem General: normal to inspection Course Vital Signs Vital signs: Vital Signs Temperature 36.1 C L 07/06/23 22:46 Pulse 67 07/06/23 22:46 Respiratory Rate 19 07/06/23 22:46 Blood Pressure 113/61 07/06/23 22:46 Pulse Oximetry 98 07/06/23 22:46 Temperature 36.2 C L 07/06/23 22:49 Temperature Source Temporal Artery Scan 07/06/23 22:49 Pulse 69 07/06/23 22:49 Respiratory Rate 18 07/06/23 22:49 Respiratory Effort Normal, Non-Labored 07/06/23 22:49 Blood Pressure 113/61 07/06/23 22:49 Blood Pressure Position Sitting 07/06/23 22:49 Pulse Oximetry 98 07/06/23 22:49 Oxygen Delivery Method Room Air 07/06/23 22:49 Oxygen Flow Rate 0 07/06/23 22:46 Pain Level 6 07/06/23 22:49
[2023-07-06] MEDS: Ondansetron 4 MG/2 ML VIAL IVP (23:24)
[2023-07-06 23:28] LABS: Abs Immature Grans 0.02 10^3/uL (0.0-0.06); Absolute Basophil Count 0.06 10^3/uL (0.0-0.2); Absolute Eosinophil Count 0.08 10^3/uL (0.0-0.7); Absolute Lymphocyte Count 4.81 10^3/uL (1.2-3.4); Absolute Neutrophil Count 4.31 10^3/uL (1.2-6.7); Basophils % 0.6; Eosinophils % 0.8; HCT 42.5 % (36.0-46.0); HGB 14.2 g/dL (11.2-15.7); Immature Grans % 0.2; Lymphocytes % 48.2; MCH 29.2 pg (27.0-33.0); MCHC 33.4 % (32.0-36.0); MCV 87 fL (80-95); Neutrophils % 43.2; Platelet Count 302 10^3/uL (130-400); RBC 4.87 10^6/uL (3.93-5.22); RDW 12.2 % (11.7-14.6); RDW-SD 39.2 fL; WBC 9.98 10^3/uL (4.4-10.8)
[2023-07-06 23:28] LABS: Bilirubin Negative (Negative); Blood Negative (Negative); Clarity Clear (Clear); Glucose Negative (Negative); Ketones Negative (Negative); Leukocyte Esterase Negative (Negative); Nitrite Negative (Negative); Specific Gravity >= 1.030 (1.005-1.025); Urobilinogen 0.2 mg/dL (Up to 0.2); pH 5.5 (5-8)
[2023-07-06 23:42] LABS: ALT 49 U/L (14-59); AST 28 U/L (15-37); Albumin 4.2 g/dL (3.4-5.0); Alkaline Phosphatase 109 U/L (46-116); Anion Gap 6.2 mmol/L (3-11); BUN 18 mg/dL (7-18); Bilirubin, Total 0.2 mg/dL (0.2-1.0); CO2 31.8 mmol/L (21.0-32.0); CREATININE 0.8 mg/dL (0.55-1.02); Calcium 9.3 mg/dL (8.5-10.1); Chloride 105 mmol/L (98-107); Estimated GFR 94.87 (mL/min/1.73m2); Glucose 71 mg/dL (74-106); Lipase 23 U/L (16-77); Potassium 3.3 mmol/L (3.5-5.1); Sodium 143 mmol/L (136-145); Total Protein 8.5 g/dL (6.4-8.2)
[2023-07-06 23:54] LABS: COVID-19 PCR Negative (Negative); Influenza A PCR Negative (Negative); Influenza B PCR Negative (Negative); RSV PCR Negative (Negative)
[2023-07-06 23:55] LABS: Source NASOPHARYNX
[2023-07-07] VITALS: O2SAT 100
[2023-07-07 00:01] VITALS: BP 114/62; PULSE 55; O2SAT 100
[2023-07-07 00:10] VITALS: O2SAT 100
[2023-07-07 00:16] VITALS: BP 111/44; PULSE 55; O2SAT 100
[2023-07-07 00:20] VITALS: O2SAT 100
--- NOTE | 2023-07-07 00:45 | DI.CT_ITS ---
Exam(s) CT ABDOMEN PELVIS W EXAM: CT ABDOMEN PELVIS W CLINICAL HISTORY: abdominal pain. bowel obstruction suspected. TECHNIQUE: Imaging Protocol: Axial computed tomography images with coronal and sagittal reformatted images were created and reviewed CONTRAST MATERIAL: Intravenous: Omnipaque 350 Contrast volume:100 ml Oral: yes / COMPARISON: CT CT ABDOMEN PELVIS WO from 01/27/[address] RENAL COLIC WO from 02/26/2022 FINDINGS: ABDOMEN and PELVIS: Lung Bases: No acute findings. Liver: Normal density. No measurable mass. Gallbladder and biliary tract: No radiodense calculus or dilation. Pancreas: Normal density. No abnormal calcifications or inflammatory process. No evidence of mass. Spleen: Normal size. Stable multiple small low-density lesions.. Kidneys: Normal size, contour and axis. No radiodense stones. No obstructive uropathy. No suspicious masses seen. Adrenal glands: No masses seen. Vasculature: Abdominal aorta non-dilated. Soft tissues: Unremarkable. Bladder: No gross wall thickening. No calculi.No focal mass. Bowel: Prior gastric bypass. No obstruction. No bowel wall thickening. No evidence of appendicitis . Peritoneal cavity: No ascites. No focal collection or mesenteric inflammatory response. Bones: Hardware lumbosacral junction. Mild degenerative changes. Reproductive organs: Status post hysterectomy. Lymph nodes: Unremarkable. IMPRESSION:: No acute abnormality in the abdomen and pelvis. RADIATION DOSE DELIVERED: Total DLP DATA REPOSITORY: All CT scans at this facility are submitted to the National Radiology Data Registry (NRDR) Dose Index Registry (DIR) with the [employer] (A[employer]). RADIATION OPTIMIZATION: All CT scans at this facility use at least one of these dose optimization te chniques: automated exposure control; mA and/or kV adjustment per patient size (includes targeted exa ms where dose is matched to clinical indication); or iterative reconstruction.
[2023-07-07] MEDS: Breeza Beverage 473 ML BTL 946 ML PO (01:08)
[2023-07-07] MEDS: Omnipaque 350 MG/ML 100 ML BTL IJ (01:09)
[2023-07-07] MEDS: Normal Saline - Diluent 50 ML VIAL IJ (01:10)
--- NOTE | 2023-07-07 01:35 | DI.VRAD_ITS ---
PROCEDURE INFORMATION: Exam: CT Abdomen And Pelvis With Contrast Exam date and time: 07/07/2023 12:56 AM Age: 43 years old Clinical indication: Abdominal pain; Additional info: Abd pain, bowel obstruction suspected TECHNIQUE: Imaging protocol: Computed tomography of the abdomen and pelvis with contrast. Contrast material: OMNI 350; Contrast volume: 100 ml; Contrast route: INTRAVENOUS (IV); Other contrast: Oral, omni, 50; COMPARISON: CT ABDOMEN PELVIS WO 01/27/2022 6:20 PM FINDINGS: Liver: Normal. No mass. Gallbladder and bile ducts: Normal. No calcified stones. No ductal dilation. Pancreas: Normal. No ductal dilation. Spleen: Multiple small nonspecific hypodense lesions throughout the spleen appears stable compared to prior studies. Adrenal glands: Normal. No mass. Kidneys and ureters: Normal. No hydronephrosis. Stomach and bowel: Evidence of prior gastric bypass. Appendix: No evidence of appendicitis. Intraperitoneal space: Unremarkable. No free air. No significant fluid collection. Vasculature: Unremarkable. No abdominal aortic aneurysm. Lymph nodes: Unremarkable. No enlarged lymph nodes. Urinary bladder: Unremarkable as visualized. Reproductive: Uterus is surgically absent. No adnexal abnormality. Bones/joints: Orthopedic hardware produces posterior fusion of the lumbosacral junction. [id number] multilevel degenerative disc changes throughout the lower spine. Soft tissues: Unremarkable. IMPRESSION: No evidence of bowel obstruction or other acute abnormality in the abdomen or pelvis. Dictated and Authenticated by: Bob William MD. Ordering:DEENA Keenan MD
[2023-07-07 02:09] VITALS: PULSE 62; O2SAT 97
== END 2023-07-07 01:55 | disposition home or self-care (01) ==
PROVIDERS: Emergency Provider Student in an Organized Health Care Education/Training Program; PCP Nurse Practitioner Family
DX: R11.2 Nausea with vomiting, unspecified (principal); R10.9 Unspecified abdominal pain; I10 Essential (primary) hypertension; E11.9 Type 2 diabetes mellitus without complications; E78.5 Hyperlipidemia, unspecified; G40.A09 Absence epileptic syndrome, not intractable, without status epilepticus; Z79.84 Long term (current) use of oral hypoglycemic drugs; Z20.822 Contact with and (suspected) exposure to COVID-19; Z87.891 Personal history of nicotine dependence
CPT/HCPCS: 80053; 81025; 83690; 87637; 99285; 74177; 81003; 85025; 99284; J2405; J3490

== ENCOUNTER 2023-08-21 21:01 | Emergency (ER) | payer MEDICAID, SELFPAY ==
[2023-08-21 21:03] VITALS: BP 132/72; PULSE 69; RESP 16; TEMP 36.5; O2SAT 100
[2023-08-21 21:37] VITALS: BP 155/77; PULSE 63; RESP 18; O2SAT 98
[2023-08-21 21:57] LABS: Influenza A PCR Negative (Negative); Influenza B PCR Negative (Negative); RSV PCR Negative (Negative)
[2023-08-21 22:01] LABS: COVID-19 PCR Positive (Negative); Source Nasopharynx
[2023-08-21] MEDS: Normal Saline 1,000 ML 1000 ML IV (22:24)
[2023-08-21] MEDS: Ondansetron 4 MG/2 ML VIAL IVP (22:25)
[2023-08-21 22:26] LABS: Abs Immature Grans 0.01 10^3/uL (0.0-0.06); Absolute Basophil Count 0.05 10^3/uL (0.0-0.2); Absolute Eosinophil Count 0.06 10^3/uL (0.0-0.7); Absolute Lymphocyte Count 4.29 10^3/uL (1.2-3.4); Absolute Monocyte Count 0.72 10^3/uL (0.1-0.8); Basophils % 0.5; Eosinophils % 0.6; HCT 37.8 % (36.0-46.0); Immature Grans % 0.1; MCH 29.3 pg (27.0-33.0); MCHC 34.4 % (32.0-36.0); MCV 85 fL (80-95); MPV 10.4 fL (8.0-11.0); Monocytes % 7.6; Neutrophils % 46.2; Platelet Count 249 10^3/uL (130-400); RBC 4.44 10^6/uL (3.93-5.22); RDW 11.8 % (11.7-14.6); RDW-SD 35.9 fL; WBC 9.53 10^3/uL (4.4-10.8)
--- NOTE | 2023-08-21 22:34 | W.ED.GENAD ---
HPI General Mode of arrival: ambulatory. Date/Time Provider Initiated Documentation: 08/21/23 21:56. Limitations to Documentation: no limitations. Information obtained by: patient. HPI Narrative: 43-year-old female with multiple medical problems including history of diabetes, gastric bypass, bipolar, presents with chief complaint of vomiting. Patient notes this evening she vomited up green phlegm. She notes she typically has vomiting daily post gastric bypass. The color of her vomit today was concerning for her. She notes increased fatigue today. She has been caring for a relative who is currently hospitalized for COVID. She denies fever. She denies shortness of breath but does note some difficulty breathing when she is lying on her side. Related Data Home Medications Medication Instructions Recorded Confirmed pantoprazole 40 mg tablet,delayed 40 mg PO DAILY 05/11/19 08/21/23 release sumatriptan succinate 50 mg tablet See Rx Instructions PO .COMPLEX PRN 11/27/19 08/21/23 acetaminophen 500 mg tablet 500 mg PO Q6H PRN pain #60 tabs 05/28/20 08/21/23 loratadine 10 mg capsule 10 mg PO DAILY PRN 01/21/21 08/21/23 albuterol sulfate 90 mcg/actuation 2 inh inhalation Q6H PRN 03/23/21 08/21/23 aerosol inhaler (ProAir HFA) fluticasone propionate 110 1 inh inhalation BID 03/23/21 08/21/23 mcg/actuation HFA aerosol inhaler (Flovent HFA) biotin 1 mg capsule 1 mg PO DAILY 10/22/21 08/21/23 divalproex 250 mg tablet,delayed 250 mg PO BID 10/22/21 08/21/23 release (Depakote) magnesium L-lactate 84 mg 84 mg PO DAILY 10/22/21 08/21/23 tablet,extended release (Magtab) msuqyvojsksa-Fg-nqzo-minerals 18 1 tab PO DAILY 10/22/21 08/21/23 mg-0.4 mg tablet ursodiol 200 mg capsule 250 mg PO DAILY 10/22/21 08/21/23 sucralfate 100 mg/mL oral 10 ml PO BID #200 mL 12/17/21 08/21/23 suspension (Carafate) bupropion HCl 300 mg 24 hr tablet, 300 mg PO QAM 01/20/23 08/21/23 extended release cholecalciferol (vitamin D3) 50 50 mcg PO DAILY 01/20/23 08/21/23 mcg (2,000 unit) capsule glyburide 5 mg tablet 5 mg PO DAILY 01/20/23 08/21/23 lisinopril 5 mg tablet 5 mg PO DAILY 01/20/23 08/21/23 metoclopramide HCl 10 mg tablet 10 mg PO QAC 01/20/23 08/21/23 trazodone 50 mg tablet 50 mg PO QHS PRN 01/20/23 08/21/23 cyclobenzaprine 5 mg tablet 5 mg PO TID PRN #14 tabs 03/09/23 08/21/23 oxybutynin chloride 5 mg 5 mg PO DAILY #90 tabs 03/14/23 08/21/23 tablet,extended release 24 hr molnupiravir 200 mg capsule (EUA) 800 mg (4 x 200 mg) PO Q12H 5 days 08/21/23 #40 caps Previous Rx's Medication Instructions Recorded acetaminophen 500 mg tablet 500 mg PO Q6H PRN pain #60 tabs 05/28/20 sucralfate 100 mg/mL oral 10 ml PO BID #200 mL 12/17/21 suspension (Carafate) cyclobenzaprine 5 mg tablet 5 mg PO TID PRN #14 tabs 03/09/23 oxybutynin chloride 5 mg 5 mg PO DAILY #90 tabs 03/14/23 tablet,extended release 24 hr molnupiravir 200 mg capsule (EUA) 800 mg (4 x 200 mg) PO Q12H 5 days 08/21/23 #40 caps Allergies Allergy/AdvReac Type Severity Reaction Status Date / Time amoxicillin Allergy Severe trouble Verified 08/21/23 21:06 breathing and a rash artichoke Allergy Severe ANAPHYLAXIS Verified 08/21/23 21:06 Penicillins Allergy Intermediate HIVES Verified 08/21/23 21:06 sodium hypochlorite solution Allergy Intermediate HIVES/SOB Verified 08/21/23 21:06 [sodium hypochlorite] adhesive tape Allergy Mild Skin Rash Verified 08/21/23 21:06 ibuprofen AdvReac Severe GI Bleeding Unverified 08/21/23 21:06 General Stated Complaint: Nausea/Vomit/Diar MIKE: 3 Review of Systems All systems reviewed & are unremarkable except as noted in HPI and below Constitutional Constitutional: Denies fever(s) Cardiovascular Cardiovascular: Denies chest pain Gastrointestinal Gastrointestinal: Denies abdominal pain Exam Const General: cooperative and no acute distress [facility] Mouth: mucous membranes dry Eyes Conjunctivae: normal conjunctivae Sclera: normal sclerae Neck Neck: trachea midline Resp Auscultation: clear to auscultation bilaterally, no rales, no rhonchi and no wheezes Cardio Rate: regular rate and not tachycardic Rhythm: regular rhythm GI Inspection: non-distended Palpation: soft, not firm, no guarding, no masses, not rigid and tender in the LLQ and in the RUQ; with no rebound tenderness Auscultation: normal bowel sounds Skin General skin exam: no rashes or lesions noted Neuro General: patient alert, patient awake and tone normal Extrem General: no edema Psych Appearance: grossly normal Mental Status: mental status grossly normal Course Vital Signs Vital signs: Vital Signs Temperature 36.5 C 08/21/23 21:03 Pulse 69 08/21/23 21:03 Respiratory Rate 16 08/21/23 21:03 Blood Pressure 132/72 08/21/23 21:03 Pulse Oximetry 100 08/21/23 21:03 Temperature 36.5 C 08/21/23 21:03 Temperature Source Skin 08/21/23 21:03 Pulse 63 08/21/23 21:37 Respiratory Rate 18 08/21/23 21:37 Respiratory Effort Normal, Non-Labored 08/21/23 21:07 Blood Pressure 155/77 H 08/21/23 21:37 Blood Pressure Position Sitting 08/21/23 21:03 Pulse Oximetry 98 08/21/23 21:37 Oxygen Delivery Method Room Air 08/21/23 21:37 Oxygen Flow Rate 0 08/21/23 21:37 Pain Level 0 08/21/23 21:03 Lab/Test Results Lab/Test Results: Laboratory Tests Range/Units 08/21/23 08/21/23 21:13 22:20 WBC (4.4-10.8) 10^3/uL 9.53 RBC (3.93-5.22) 10^6/uL 4.44 Hgb (11.2-15.7) g/dL 13.0 Hct (36.0-46.0) % 37.8 MCV (80-95) fL 85 MCH (27.0-33.0) pg 29.3 MCHC (32.0-36.0) % 34.4 RDW (11.7-14.6) % 11.8 Plt Count (130-400) 10^3/uL 249 MPV (8.0-11.0) fL 10.4 Immature Gran % 0.1 Neutrophils % 46.2 Lymphocytes % 45.0 Monocytes % 7.6 Eosinophils % 0.6 Basophils % 0.5 Nucleated RBC % (0.0-0.3) % 0.0 Absolute Neutrophils (1.2-6.7) 10^3/uL 4.40 Absolute Lymphocytes (1.2-3.4) 10^3/uL 4.29 H Absolute Monocytes (0.1-0.8) 10^3/uL 0.72 Absolute Eosinophils (0.0-0.7) 10^3/uL 0.06 Absolute Basophils (0.0-0.2) 10^3/uL 0.05 COVID-19 Source Nasopharynx SARS-CoV-2 (PCR) (Negative) Positive A Influenza Type A (PCR) (Negative) Negative Influenza Type B (PCR) (Negative) Negative RSV (PCR) (Negative) Negative Medical Decision Making 1045p --43-year-old female with history of gastric bypass with revision, here with episode of vomiting what sounds like green sputum this evening, also with significant fatigue. Patient is saturating well in no respiratory distress. She does have some upper abdominal discomfort on palpation with no peritoneal findings on exam. Patient has been caring for relative who is sick with COVID. Consider COVID illness. Rapid COVID testing is negative. PCR COVID testing is positive. Patient is on multiple medications that interact with Paxlovid and has no significant respiratory illness. Labs reviewed: No significant electrolyte abnormalities. Glucose is low at 69. I will give d25 push. 1130p--patient reassessed and glucose now improved. Patient tolerating p.o. intake. Plan for discharge with outpatient follow-up. Usual customary discharge instructions reviewed with the patient. Lab Data Lab results reviewed: Yes I reviewed the patient's lab results. Labs: Laboratory Tests Range/Units 08/21/23 08/21/23 21:13 22:20 WBC (4.4-10.8) 10^3/uL 9.53 RBC (3.93-5.22) 10^6/uL 4.44 Hgb (11.2-15.7) g/dL 13.0 Hct (36.0-46.0) % 37.8 MCV (80-95) fL 85 MCH (27.0-33.0) pg 29.3 MCHC (32.0-36.0) % 34.4 RDW (11.7-14.6) % 11.8 Plt Count (130-400) 10^3/uL 249 MPV (8.0-11.0) fL 10.4 Immature Gran % 0.1 Neutrophils % 46.2 Lymphocytes % 45.0 Monocytes % 7.6 Eosinophils % 0.6 Basophils % 0.5 Nucleated RBC % (0.0-0.3) % 0.0 Absolute Neutrophils (1.2-6.7) 10^3/uL 4.40 Absolute Lymphocytes (1.2-3.4) 10^3/uL 4.29 H Absolute Monocytes (0.1-0.8) 10^3/uL 0.72 Absolute Eosinophils (0.0-0.7) 10^3/uL 0.06 Absolute Basophils (0.0-0.2) 10^3/uL 0.05 Sodium (136-145) mmol/L 143 Potassium (3.5-5.1) mmol/L 3.9 Chloride (98-107) mmol/L 105 Carbon Dioxide (21.0-32.0) mmol/L 31.8 Anion Gap (3-11) mmol/L 6.2 BUN (7-18) mg/dL 13 Creatinine (0.55-1.02) mg/dL 0.8 Est GFR (CKD-EPI 2020) (mL/min/1.73m2) 94.87 Glucose (74-106) mg/dL 69 L Calcium (8.5-10.1) mg/dL 9.7 Magnesium (1.8-2.4) mg/dL 2.1 Total Bilirubin (0.2-1.0) mg/dL 0.3 AST (15-37) U/L 23 ALT (14-59) U/L 34 Alkaline Phosphatase (46-116) U/L 86 Total Protein (6.4-8.2) g/dL 7.8 Albumin (3.4-5.0) g/dL 4.1 Lipase (16-77) U/L 22 COVID-19 Source Nasopharynx SARS-CoV-2 (PCR) (Negative) Positive A Influenza Type A (PCR) (Negative) Negative Influenza Type B (PCR) (Negative) Negative RSV (PCR) (Negative) Negative Quality:SDOH Health Related Social Needs: No Data to Display PFSH All Active Problems (Updated 08/21/23 @ 23:43 by Jeanmarie Angel MD) Hypoglycemia (Acute) COVID-19 (Acute) Anxiety and depression (Acute 02/12/14) Diabetes (Acute 02/12/14) diet controlled Elevated lipids (Acute 02/12/14) Migraine (Acute 02/12/14) Numbness of left hand (Acute 07/04/17) Tubular adenoma of colon (Acute 11/26/16) Carpal tunnel syndrome on both sides (Acute) Medial epicondylitis, left elbow (Acute) CHAPARRO (nonalcoholic steatohepatitis) (Acute) Viral illness (Acute) Migraine headache without aura (Acute) Right lateral epicondylitis (Acute) Medial epicondylitis, right elbow (Acute) Cubital tunnel syndrome on right (Acute) Right wrist sprain (Acute) Contusion of right forearm (Acute) Sprain of right elbow (Acute) Bradycardia (Acute) Vomiting (Acute) Hematemesis (Acute) Sinus bradycardia (Acute) Hypokalemia (Acute) Fall (Acute) Seizure disorder (Chronic) Bipolar 1 disorder (Acute) Gastric bypass status for obesity (Acute) Chest pain (Acute) Left ankle sprain (Acute) Arm paresthesia, right (Acute) Bilateral kidney stones (Acute) Screening for colon cancer (Acute) Psychogenic nonepileptic seizure (Acute) Right carpal tunnel syndrome (Acute) Right kidney stone (Acute) Medical History Absence seizure Pt. states they happened more when she was overweight, has not had one in 1.5 years Hypertension Medial epicondylitis of elbow Spinal stenosis Snoring Obesity Family history of attention deficit hyperactivity disorder Macromastia Cubital tunnel syndrome Lumbar disc herniation Depressive disorder Adrenal abnormality Chronic back pain Cervical cancer GERD (gastroesophageal reflux disease) Kidney stone Asthma Diabetes mellitus, type 2 Polycystic ovaries Migraine Obstructive sleep apnea syndrome pt. 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 (Date of Surgery: 03/02/18 and 10/02/2019) anterior cruciate ligament reconstruction Ligation of fallopian tube Open Carpal Tunnel release (10/23/12) RIGHT SIDE, left 8.14.14 Vaginal hysterectomy Endoscopic Carpal Tunnel release (01/14/09) 09/16/2010 REPEAT ECTR RIGHT EGD - MAC (11/26/16) Colonoscopy - MAC (02/18/23) 11/26/2016 section twice Social History Smoking/Tobacco Use Status: Former Tobacco Use Quit Date: 08/01/05 Smoking risk assessment performed?: Yes Alcohol Intake: never Drug use: Never Substance use type: does not use Household members: spouse and children Housing: house Current gender identity: female What is your relationship status?: Panel score (0-1 are the most socially isolated patients): 1 Seatbelt use: always Do you feel safe at home: Yes Do you feel safe in your relationship?: Yes Discharge Plan Disposition Patient Disposition: Home Condition: Stable Discharge Details Clinical Impression: COVID-19, Hypoglycemia Primary Care Provider: Deyanira Marcus ED Provider: Jeanmarie Angel Home Meds and New Rx's Prescriptions: New molnupiravir 200 mg capsule 800 mg PO Q12H 5 Days Qty: 40 0RF Continued oxybutynin chloride 5 mg tablet extended release 24hr 5 mg PO DAILY Qty: 90 1RF Rx Instructions: Note change to 1 tab daily sumatriptan succinate 50 mg tablet See Rx Instructions PO .COMPLEX PRN Rx Instructions: take 1 tab at onset of headache; if no relief may repeat 1 tab after at least 2 hrs; max = 4 tabs/24 hr PO albuterol sulfate [ProAir HFA] 90 mcg/actuation HFA aerosol inhaler 2 inh inhalation Q6H PRN fluticasone propionate [Flovent HFA] 110 mcg/actuation HFA aerosol inhaler 1 inh inhalation BID ursodiol 200 mg capsule 250 mg PO DAILY magnesium L-lactate [Magtab] 84 mg tablet extended release 84 mg PO DAILY biotin 1 mg capsule 1 mg PO DAILY divalproex [Depakote] 250 mg tablet,delayed release (DR/EC) 250 mg PO BID Patient Comments: taking once daily, in am oaylpmpobsxh-Vx-piax-minerals 18-0.4 mg tablet 1 tab PO DAILY bupropion HCl 300 mg tablet extended release 24 hr 300 mg PO QAM cholecalciferol (vitamin D3) 50 mcg (2,000 unit) capsule 50 mcg PO DAILY glyburide 5 mg tablet 5 mg PO DAILY lisinopril 5 mg tablet 5 mg PO DAILY metoclopramide HCl 10 mg tablet 10 mg PO QAC Rx Instructions: administer 30 minutes before meals trazodone 50 mg tablet 50 mg PO QHS PRN pantoprazole 40 mg Tablet,Delayed Release (Dr/Ec) 40 mg PO DAILY loratadine 10 mg capsule 10 mg PO DAILY PRN sucralfate [Carafate] 100 mg/mL suspension 10 ml PO BID Qty: 200 1RF acetaminophen 500 mg tablet 500 mg PO Q6H PRN (Reason: pain) Qty: 60 0RF cyclobenzaprine 5 mg tablet 5 mg PO TID PRNQty: 14 0RF Discharge Instructions Instructions: What to Do if Your Blood Sugar is Low (ED), COVID-19 (Coronavirus Disease 2019) (ED) Additional Instructions: Monitor your blood sugar. If your blood sugar drops below 75, consume foods high in sugar like juice or candy. Please maintain home isolation for the next 5 days. Wear a high-quality mask if you must be around others at home and in public. Do not go places where you are unable to wear a mask. For travel guidance, see CDC?s Travel webpage. Do not travel. Stay home and separate from others as much as possible. Use a separate bathroom, if possible. Take steps to improve ventilation at home, if possible. Don?t share personal household items, like cups, towels, and utensils. Monitor your symptoms. If you have an emergency warning sign (like trouble breathing), seek emergency medical care immediately. You may end isolation after day 5 if your symptoms are improving and you are fever free for 24 hours without the use of fever reducing medication. If your symptoms are not improving at day 5 continue to isolate until symptoms are improving and you are fever free for 24 hours without the use of fever reducing medication. Please contact your primary care physician to arrange follow-up. Return to the ER immediately for any worsening or new concerning symptoms. Referrals: Deyanira Marcus [Primary Care Provider] -
[2023-08-21 22:43] LABS: ALT 34 U/L (14-59); AST 23 U/L (15-37); Albumin 4.1 g/dL (3.4-5.0); Alkaline Phosphatase 86 U/L (46-116); Anion Gap 6.2 mmol/L (3-11); BUN 13 mg/dL (7-18); Bilirubin, Total 0.3 mg/dL (0.2-1.0); CO2 31.8 mmol/L (21.0-32.0); CREATININE 0.8 mg/dL (0.55-1.02); Calcium 9.7 mg/dL (8.5-10.1); Chloride 105 mmol/L (98-107); Estimated GFR 94.87 (mL/min/1.73m2); Glucose 69 mg/dL (74-106); Lipase 22 U/L (16-77); Magnesium 2.1 mg/dL (1.8-2.4); Potassium 3.9 mmol/L (3.5-5.1); Sodium 143 mmol/L (136-145); Total Protein 7.8 g/dL (6.4-8.2)
[2023-08-21] MEDS: Dextrose 25%-Water 10 ML SYR IVP (23:02)
[2023-08-21 23:06] VITALS: BP 132/82; PULSE 56; O2SAT 100
[2023-08-22 00:08] VITALS: BP 120/54; PULSE 62; RESP 18; O2SAT 97
== END 2023-08-22 00:08 | disposition home or self-care (01) ==
PROVIDERS: Emergency Provider Student in an Organized Health Care Education/Training Program; PCP Nurse Practitioner Family
DX: R11.10 Vomiting, unspecified (principal); I10 Essential (primary) hypertension; E11.65 Type 2 diabetes mellitus with hyperglycemia; Z11.52 Encounter for screening for COVID-19; Z79.84 Long term (current) use of oral hypoglycemic drugs; U07.1 COVID-19
CPT/HCPCS: 80053; 82962; 83690; 87426; 87637; 96361; 96374; 96375; 99283; 83735; 85025; J2405

== ENCOUNTER 2023-09-08 07:50 | Emergency (ER) | payer MEDICAID, SELFPAY ==
[2023-09-08 07:52] VITALS: BP 118/50; PULSE 56; RESP 16; TEMP 36.6; O2SAT 99
--- NOTE | 2023-09-08 08:01 | ED.GENADUL_ITS ---
HPI General Date/Time Provider Initiated Documentation: 09/08/23 07:54 . HPI Narrative: 43 year-old female presents to ED today by POV/ambulating with a chief complaint of nausea/vomiting, diarrhea with onset of vomiting for 5 days, progressing to diarrhea for the past 2 days. Quality described as feels mildly dehydrated- has history of gastric bypass encouraged by her bariatrics providers office to present for IV fluids, no radiation to fever, chest pain, shortness of breath, hematemesis, black/bloody diarrhea, cough or URI symptoms. Severity is described as moderate. Palliating factors include nothing specific attempted. Provoking factors include nothing specific. Patient not anticoagulated. Related Data Home Medications Medication Instructions Recorded Confirmed pantoprazole 40 mg tablet,delayed 40 mg PO DAILY 05/11/19 09/08/23 release sumatriptan succinate 50 mg tablet See Rx Instructions PO .COMPLEX PRN 11/27/19 09/08/23 acetaminophen 500 mg tablet 500 mg PO Q6H PRN pain #60 tabs 05/28/20 09/08/23 loratadine 10 mg capsule 10 mg PO DAILY PRN 01/21/21 09/08/23 albuterol sulfate 90 mcg/actuation 2 inh inhalation Q6H PRN 03/23/21 09/08/23 aerosol inhaler (ProAir HFA) fluticasone propionate 110 1 inh inhalation BID 03/23/21 09/08/23 mcg/actuation HFA aerosol inhaler (Flovent HFA) biotin 1 mg capsule 1 mg PO DAILY 10/22/21 09/08/23 divalproex 250 mg tablet,delayed 250 mg PO BID 10/22/21 09/08/23 release (Depakote) magnesium L-lactate 84 mg 84 mg PO DAILY 10/22/21 09/08/23 tablet,extended release (Magtab) [id number]-[id number]-minerals 18 1 tab PO DAILY 10/22/21 09/08/23 mg-0.4 mg tablet ursodiol 200 mg capsule 250 mg PO DAILY 10/22/21 09/08/23 sucralfate 100 mg/mL oral 10 ml PO BID #200 mL 12/17/21 09/08/23 suspension (Carafate) bupropion HCl 300 mg 24 hr tablet, 300 mg PO QAM 01/20/23 09/08/23 extended release cholecalciferol (vitamin D3) 50 50 mcg PO DAILY 01/20/23 09/08/23 mcg (2,000 unit) capsule glyburide 5 mg tablet 5 mg PO DAILY 01/20/23 09/08/23 lisinopril 5 mg tablet 5 mg PO DAILY 01/20/23 09/08/23 metoclopramide HCl 10 mg tablet 10 mg PO QAC 01/20/23 09/08/23 trazodone 50 mg tablet 50 mg PO QHS PRN 01/20/23 09/08/23 oxybutynin chloride 5 mg 5 mg PO DAILY #90 tabs 03/14/23 09/08/23 tablet,extended release 24 hr Previous Rx's Medication Instructions Recorded acetaminophen 500 mg tablet 500 mg PO Q6H PRN pain #60 tabs 05/28/20 sucralfate 100 mg/mL oral 10 ml PO BID #200 mL 12/17/21 suspension (Carafate) oxybutynin chloride 5 mg 5 mg PO DAILY #90 tabs 03/14/23 tablet,extended release 24 hr Allergies Allergy/AdvReac Type Severity Reaction Status Date / Time amoxicillin Allergy Severe trouble Verified 09/08/23 08:34 breathing and a rash artichoke Allergy Severe ANAPHYLAXIS Verified 09/08/23 08:34 Penicillins Allergy Intermediate HIVES Verified 09/08/23 08:34 sodium hypochlorite solution Allergy Intermediate HIVES/SOB Verified 09/08/23 08:34 [sodium hypochlorite] adhesive tape Allergy Mild Skin Rash Verified 09/08/23 08:34 ibuprofen AdvReac Severe GI Bleeding Unverified 09/08/23 08:34 General Stated Complaint: Nausea/Vomit/Diar MIKE: 3 Review of Systems All systems reviewed & are unremarkable except as noted in HPI and below Exam Narrative Exam Narrative: GENERAL APPEARANCE: Well-nourished, non-toxic, awake and alert, atraumatic, no acute distress. SKIN: Warm, pink, dry, intact, without rashes/lesions/ulcerations. HEAD: Normocephalic, atraumatic, normal hair distribution for gender/age. EYES: Pupils PERRLA, EOMs intact without nystagmus, normal conjunctiva, no exudates on lids/lashes. ENT: Nares patent, no circumoral cyanosis, no facial swelling, oral mucosa moist NECK: Supple, trachea midline, painless cervical ROM. LUNGS/CHEST: Lungs CTA bilaterally, non-labored respirations, normal A/P diameter, symmetrical expansion, no chest wall deformity HEART (CV/PV): Regular rate and rhythm without murmur, no peripheral edema, no JVD. ABDOMEN: Soft, non-distended, no guarding, no overt tenderness all quadrants, no Peñaloza's sign, no rebound tenderness or Rovsing's. MSK: Normal ROM, no swelling/deformity to bilateral UEs or LEs, moving all extremities without weakness, no cyanosis, spine midline without tenderness, normal curvature. NEURO: Mental Status AAOx4 - alert to person, place, time, events No facial droop, no forehead involvement. Motor: No focal weakness - strength 5/5 in bilateral UEs and LEs, proximal and distal, symmetric. Sensory: sensation intact to light touch globally. Gait normal: patient ambulated without ataxia into ED room. PSYCH: euthymic, cooperative, pleasant, appropriate speech Course Vital Signs Vital signs: Vital Signs Temperature 36.6 C 09/08/23 07:52 Pulse 56 L 09/08/23 07:52 Respiratory Rate 16 09/08/23 07:52 Blood Pressure 118/50 L 09/08/23 07:52 Pulse Oximetry 99 09/08/23 07:52 Temperature 36.6 C 09/08/23 07:52 Temperature Source Skin 09/08/23 07:52 Pulse 56 L 09/08/23 07:52 Respiratory Rate 16 09/08/23 07:52 Blood Pressure 118/50 L 09/08/23 07:52 Blood Pressure Position Sitting 09/08/23 07:52 Pulse Oximetry 99 09/08/23 07:52 Oxygen Delivery Method Room Air 09/08/23 07:52 Oxygen Flow Rate 0 09/08/23 07:52 Pain Level 5 09/08/23 07:52 Comment took an anti-diarrheal medication 09/08/23 07:52 Medical Decision Making This dictation utilizes [id number] dictation software and may contain unedited grammatical errors. 43 y/o F presents to ED today with a chief complaint of nausea/vomiting/diarrhea for the past few days- feels dehydrated, encouraged to present for IV fluids, denies fever/cough/URI/chest pain/shortness of breath. Patient is tolerating small amounts of fluids. Patients' medical history: Hypertension, GERD, history of kidney stones, T2DM, hx gastric bypass, CHAPARRO. Family and social history: noncontributory, lives with spouse. Pertinent exam findings / vital signs include benign abdomen, moist mucous membranes, benign cardiopulmonary exam, stable vitals. Differential / pathologies of concern include gastroenteritis, biliary colic, renal stones. Diagnostic studies of: -CBC, CMP, Lipase, Lactate, UA, US ABD RUQ. -CBC benign -Lactate neg -Lipase mild elev, US RUQ negative -UA no hematuria/proteinuria -CMP no ALANNA or other signs of severe dehydration Interventions of: -IVF, Zofran. ED Course/Assessment/Plan: 43-year-old female presents for mild dehydration in the setting of nausea vomiting diarrhea illness for the past 2 to 5 days. She has no severe abdominal pathology on exam, labs are benign and her vitals are stable, she tolerated IV fluids and was comfortable with discharge, I stressed return criteria for any further intractable nausea or vomiting but that this is likely a viral gastroenteritis and she would likely improve. Findings not consistent with sepsis, severe dehydration, gallbladder pathology, severe pancreatitis, renal stone. Disposition of gastroenteritis. Patient verbalized understanding of the plan and return to ED criteria and engaged in shared decision making. Medical Records Medical records reviewed: Yes I reviewed the patient's medical records. Imaging Data Radiologic Study: Imaging: Ultrasound Radiologist's impression: EXAM: US ABDOMEN LIMITED CLINICAL HISTORY: RUQ, elevated lipase TECHNIQUE: Ultrasound abdomen performed using standard protocol. COMPARISON: CT CT ABDOMEN PELVIS W from 07/07/2023 FINDINGS: LIVER: Normal size. Normalechogenicity. No focal liver lesions are seen.. GALLBLADDER: No evidence of cholelithiasis. No evidence of wall thickening. No pericholecystic fluid identified. PEÑALOZA'S SIGN: Negative. BILIARY SYSTEM: No intrahepatic or extrahepatic biliary ductal dilation. RIGHT KIDNEY: Normal size. No evidence of renal calculi. No evidence of hydronephrosis. No suspicious renal mass. No cyst identified. PANCREAS: Normal where visualized. ABDOMINAL AORTA AND IVC: Visualized portions normal caliber. ASCITES: None seen. IMPRESSION: Normal sonographic appearance of the right upper quadrant. Lab Data Lab results reviewed: Yes I reviewed the patient's lab results. Labs: Laboratory Tests Range/Units 02/08/24 02/08/24 08:13 08:15 WBC (4.4-10.8) 10^3/uL 6.90 RBC (3.93-5.22) 10^6/uL 4.76 Hgb (11.2-15.7) g/dL 13.6 Hct (36.0-46.0) % 40.7 MCV (80-95) fL 86 MCH (27.0-33.0) pg 28.6 MCHC (32.0-36.0) % 33.4 RDW (11.7-14.6) % 11.9 Plt Count (130-400) 10^3/uL 279 MPV (8.0-11.0) fL 10.3 Immature Gran % 0.1 Neutrophils % 50.4 Lymphocytes % 40.6 Monocytes % 7.0 Eosinophils % 1.3 Basophils % 0.6 Nucleated RBC % (0.0-0.3) % 0.0 Absolute Neutrophils (1.2-6.7) 10^3/uL 3.48 Absolute Lymphocytes (1.2-3.4) 10^3/uL 2.80 Absolute Monocytes (0.1-0.8) 10^3/uL 0.48 Absolute Eosinophils (0.0-0.7) 10^3/uL 0.09 Absolute Basophils (0.0-0.2) 10^3/uL 0.04 VBG Lactate (0.6-1.4) mmol/L 1.1 Sodium (136-145) mmol/L 144 Potassium (3.5-5.1) mmol/L 3.7 Chloride (98-107) mmol/L 104 Carbon Dioxide (21.0-32.0) mmol/L 31.2 Anion Gap (3-11) mmol/L 8.8 BUN (7-18) mg/dL 11 Creatinine (0.55-1.02) mg/dL 0.7 Est GFR (CKD-EPI 2020) (mL/min/1.73m2) 111.36 Glucose (74-106) mg/dL 99 Calcium (8.5-10.1) mg/dL 9.5 Magnesium (1.8-2.4) mg/dL 1.9 Total Bilirubin (0.2-1.0) mg/dL 0.5 AST (15-37) U/L 19 ALT (14-59) U/L 45 Alkaline Phosphatase (46-116) U/L 87 Total Protein (6.4-8.2) g/dL 7.6 Albumin (3.4-5.0) g/dL 3.9 Lipase (16-77) U/L 98 H Urine Color (Yellow) Yellow Urine Clarity (Clear) Clear Urine pH (5-8) 6.0 Ur Specific Oolitic (1.005-1.025) 1.025 Urine Protein (Negative) mg/dL Negative Urine Ketones (Negative) mg/dL Negative Urine Blood (Negative) Negative Urine Nitrite (Negative) Negative Urine Bilirubin (Negative) Negative Urine Urobilinogen (Up to 0.2) mg/dL 0.2 Ur Leukocyte Esterase (Negative) Negative Urine Glucose (Negative) mg/dL Negative Quality:SDOH Health Related Social Needs: No Data to Display PFSH All Active Problems (Updated 09/08/23 @ 10:34 by MELECIO March) Gastroenteritis (Acute) Hypoglycemia (Acute) COVID-19 (Acute) Anxiety and depression (Acute 02/12/14) Diabetes (Acute 02/12/14) diet controlled Elevated lipids (Acute 02/12/14) Migraine (Acute 02/12/14) Numbness of left hand (Acute 07/04/17) Tubular adenoma of colon (Acute 11/26/16) Carpal tunnel syndrome on both sides (Acute) Medial epicondylitis, left elbow (Acute) CHAPARRO (nonalcoholic steatohepatitis) (Acute) Viral illness (Acute) Migraine headache without aura (Acute) Right lateral epicondylitis (Acute) Medial epicondylitis, right elbow (Acute) Cubital tunnel syndrome on right (Acute) Right wrist sprain (Acute) Contusion of right forearm (Acute) Sprain of right elbow (Acute) Bradycardia (Acute) Vomiting (Acute) Hematemesis (Acute) Sinus bradycardia (Acute) Hypokalemia (Acute) Fall (Acute) Seizure disorder (Chronic) Bipolar 1 disorder (Acute) Gastric bypass status for obesity (Acute) Chest pain (Acute) Left ankle sprain (Acute) Arm paresthesia, right (Acute) Bilateral kidney stones (Acute) Screening for colon cancer (Acute) Psychogenic nonepileptic seizure (Acute) Right carpal tunnel syndrome (Acute) Right kidney stone (Acute) Medical History Absence seizure Pt. states they happened more when she was overweight, has not had one in 1.5 years Hypertension Medial epicondylitis of elbow Spinal stenosis Snoring Obesity Family history of attention deficit hyperactivity disorder Macromastia Cubital tunnel syndrome Lumbar disc herniation Depressive disorder Adrenal abnormality Chronic back pain Cervical cancer GERD (gastroesophageal reflux disease) Kidney stone Asthma Diabetes mellitus, type 2 Polycystic ovaries Migraine Obstructive sleep apnea syndrome pt. 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 (Date of Surgery: 03/02/18 and 10/02/2019) anterior cruciate ligament reconstruction Ligation of fallopian tube Open Carpal Tunnel release (10/23/12) RIGHT SIDE, left 8.14.14 Vaginal hysterectomy Endoscopic Carpal Tunnel release (01/14/09) 09/16/2010 REPEAT ECTR RIGHT EGD - MAC (11/26/16) Colonoscopy - MAC (02/18/23) 11/26/2016 section twice Social History Smoking/Tobacco Use Status: Former Tobacco Use Quit Date: 08/01/05 Smoking risk assessment performed?: Yes Alcohol Intake: never Drug use: Never Substance use type: does not use Household members: spouse and children Housing: house Current gender identity: female What is your relationship status?: Panel score (0-1 are the most socially isolated patients): 1 Seatbelt use: always Do you feel safe at home: Yes Do you feel safe in your relationship?: Yes Discharge Plan Disposition Patient Disposition: Home Condition: Stable Discharge Details Clinical Impression: Gastroenteritis Primary Care Provider: Deyanira Marcus ED Provider: Adolfo Boothe Home Meds and New Rx's Prescriptions: Continued oxybutynin chloride 5 mg tablet extended release 24hr 5 mg PO DAILY Qty: 90 1RF Rx Instructions: Note change to 1 tab daily sumatriptan succinate 50 mg tablet See Rx Instructions PO .COMPLEX PRN Rx Instructions: take 1 tab at onset of headache; if no relief may repeat 1 tab after at least 2 hrs; max = 4 tabs/24 hr PO albuterol sulfate [ProAir HFA] 90 mcg/actuation HFA aerosol inhaler 2 inh inhalation Q6H PRN fluticasone propionate [Flovent HFA] 110 mcg/actuation HFA aerosol inhaler 1 inh inhalation BID ursodiol 200 mg capsule 250 mg PO DAILY magnesium L-lactate [Magtab] 84 mg tablet extended release 84 mg PO DAILY biotin 1 mg capsule 1 mg PO DAILY divalproex [Depakote] 250 mg tablet,delayed release (DR/EC) 250 mg PO BID Patient Comments: taking once daily, in am dwbvrlqdwfeh-Vc-ikzn-minerals 18-0.4 mg tablet 1 tab PO DAILY bupropion HCl 300 mg tablet extended release 24 hr 300 mg PO QAM cholecalciferol (vitamin D3) 50 mcg (2,000 unit) capsule 50 mcg PO DAILY glyburide 5 mg tablet 5 mg PO DAILY lisinopril 5 mg tablet 5 mg PO DAILY metoclopramide HCl 10 mg tablet 10 mg PO QAC Rx Instructions: administer 30 minutes before meals trazodone 50 mg tablet 50 mg PO QHS PRN pantoprazole 40 mg Tablet,Delayed Release (Dr/Ec) 40 mg PO DAILY loratadine 10 mg capsule 10 mg PO DAILY PRN sucralfate [Carafate] 100 mg/mL suspension 10 ml PO BID Qty: 200 1RF acetaminophen 500 mg tablet 500 mg PO Q6H PRN (Reason: pain) Qty: 60 0RF Discharge Instructions Instructions: Gastroenteritis (ED) Additional Instructions: You were seen in the emergency department for your nausea and vomiting and diarrhea, your labs showed no signs of severe dehydration, your ultrasound of your right upper quadrant of your abdomen was normal, you had a mildly elevated lipase which can be due to mild dehydration. Your markers of sepsis were negative and your urine shows no UTI or signs of renal pathology. You likely have a stomach virus or gastroenteritis which should get better in a couple days, try to stay well-hydrated taking small sips of fluids and trying to maintain nutrition. I am sending you home with some antinausea tablets to go. Please return to the ED for failure to improve, inability to maintain hydration & nutrition, fever, worsening abdominal pain. Referrals: Deyanira Marcus [Primary Care Provider] - Discharge Data Discharge Date/Time-TO BE ENTERED AT DEPARTURE: 09/08/23 10:39
[2023-09-08] MEDS: Lactated Ringers 1,000 ML 1000 ML IV (08:15)
[2023-09-08 08:23] LABS: Lactate 1.1 mmol/L (0.6-1.4)
[2023-09-08 08:25] LABS: Abs Immature Grans 0.01 10^3/uL (0.0-0.06); Absolute Basophil Count 0.04 10^3/uL (0.0-0.2); Absolute Eosinophil Count 0.09 10^3/uL (0.0-0.7); Absolute Monocyte Count 0.48 10^3/uL (0.1-0.8); Absolute Neutrophil Count 3.48 10^3/uL (1.2-6.7); Basophils % 0.6; Eosinophils % 1.3; HCT 40.7 % (36.0-46.0); HGB 13.6 g/dL (11.2-15.7); Immature Grans % 0.1; Lymphocytes % 40.6; MCH 28.6 pg (27.0-33.0); MCHC 33.4 % (32.0-36.0); MCV 86 fL (80-95); MPV 10.3 fL (8.0-11.0); Neutrophils % 50.4; Platelet Count 279 10^3/uL (130-400); RBC 4.76 10^6/uL (3.93-5.22); RDW 11.9 % (11.7-14.6); RDW-SD 37.6 fL
[2023-09-08 08:26] VITALS: BP 118/50; PULSE 56; RESP 16; TEMP 36.6; O2SAT 99
[2023-09-08 08:30] LABS: Bilirubin Negative (Negative); Blood Negative (Negative); Clarity Clear (Clear); Glucose Negative (Negative); Ketones Negative (Negative); Leukocyte Esterase Negative (Negative); Nitrite Negative (Negative); Specific Gravity 1.025 (1.005-1.025); Urobilinogen 0.2 mg/dL (Up to 0.2)
[2023-09-08 08:43] LABS: ALT 45 U/L (14-59); AST 19 U/L (15-37); Albumin 3.9 g/dL (3.4-5.0); Alkaline Phosphatase 87 U/L (46-116); Anion Gap 8.8 mmol/L (3-11); BUN 11 mg/dL (7-18); Bilirubin, Total 0.5 mg/dL (0.2-1.0); CO2 31.2 mmol/L (21.0-32.0); CREATININE 0.7 mg/dL (0.55-1.02); Calcium 9.5 mg/dL (8.5-10.1); Chloride 104 mmol/L (98-107); Estimated GFR 111.36 (mL/min/1.73m2); Glucose 99 mg/dL (74-106); Lipase 98 U/L (16-77); Magnesium 1.9 mg/dL (1.8-2.4); Potassium 3.7 mmol/L (3.5-5.1); Sodium 144 mmol/L (136-145); Total Protein 7.6 g/dL (6.4-8.2)
--- NOTE | 2023-09-08 09:30 | DI.US_ITS ---
Exam(s) US ABDOMEN LIMITED EXAM: US ABDOMEN LIMITED CLINICAL HISTORY: RUQ, elevated lipase TECHNIQUE: Ultrasound abdomen performed using standard protocol. COMPARISON: CT CT ABDOMEN PELVIS W from 07/07/2023 FINDINGS: LIVER: Normal size. Normalechogenicity. No focal liver lesions are seen.. GALLBLADDER: No evidence of cholelithiasis. No evidence of wall thickening. No pericholecystic fluid identified. STOKES'S SIGN: Negative. BILIARY SYSTEM: No intrahepatic or extrahepatic biliary ductal dilation. RIGHT KIDNEY: Normal size. No evidence of renal calculi. No evidence of hydronephrosis. No suspicious renal mass. No cyst identified. PANCREAS: Normal where visualized. ABDOMINAL AORTA AND IVC: Visualized portions normal caliber. ASCITES: None seen. IMPRESSION: Normal sonographic appearance of the right upper quadrant. DATA REPOSITORY:
[2023-09-08] MEDS: Ondansetron O.D.T. 4 MG TABEF, 3 TABS/BTL PO (10:36)
== END 2023-09-08 10:39 | disposition home or self-care (01) ==
PROVIDERS: Emergency Provider Physician Assistant; PCP Nurse Practitioner Family
DX: R11.2 Nausea with vomiting, unspecified (principal); R19.7 Diarrhea, unspecified; K52.9 Noninfective gastroenteritis and colitis, unspecified; Z98.84 Bariatric surgery status
CPT/HCPCS: 36415; 80053; 81025; 83690; 96360; 96361; 99284; 76705; 81003; 83605; 83735; 85025; 99283

== ENCOUNTER 2023-09-12 21:41 | Emergency (ER) | payer MEDICAID, SELFPAY ==
[2023-09-12 21:47] VITALS: BP 141/60; PULSE 58; RESP 16; TEMP 36.7; O2SAT 98
--- NOTE | 2023-09-12 22:14 | ED.GENADUL_ITS ---
HPI General Date/Time Provider Initiated Documentation: 09/12/23 21:44 . HPI Narrative: 43-year-old female with a past medical history of hypertension, high cholesterol, type 2 diabetes, depression, anxiety, ADHD, gastric bypass, C- sections, hysterectomy, carpal tunnel release, right AC repair, who is currently on glyburide for her diabetes, and has had no increases or changes in the dosing for years, who presents today with high and low blood sugars. Patient states that earlier today blood sugar was 300 at 8 PM, then at 915 it was 57. She did eat some food. Currently here her blood sugar is 70. She does admit to runny nose congestion and a mild sore throat for the last 2 to 3 days. She denies any fever or chills. No shortness of breath. No other complaints at this time. She denies any lightheadedness or dizziness. Related Data Home Medications Medication Instructions Recorded Confirmed pantoprazole 40 mg tablet,delayed 40 mg PO DAILY 05/11/19 09/12/23 release sumatriptan succinate 50 mg tablet See Rx Instructions PO .COMPLEX PRN 11/27/19 09/12/23 acetaminophen 500 mg tablet 500 mg PO Q6H PRN pain #60 tabs 05/28/20 09/12/23 loratadine 10 mg capsule 10 mg PO DAILY PRN 01/21/21 09/12/23 albuterol sulfate 90 mcg/actuation 2 inh inhalation Q6H PRN 03/23/21 09/12/23 aerosol inhaler (ProAir HFA) fluticasone propionate 110 1 inh inhalation BID 03/23/21 09/12/23 mcg/actuation HFA aerosol inhaler (Flovent HFA) biotin 1 mg capsule 1 mg PO DAILY 10/22/21 09/12/23 divalproex 250 mg tablet,delayed 250 mg PO BID 10/22/21 09/12/23 release (Depakote) magnesium L-lactate 84 mg 84 mg PO DAILY 10/22/21 09/12/23 tablet,extended release (Magtab) icelkipcvwso-Hp-jcri-minerals 18 1 tab PO DAILY 10/22/21 09/12/23 mg-0.4 mg tablet ursodiol 200 mg capsule 250 mg PO DAILY 10/22/21 09/12/23 sucralfate 100 mg/mL oral 10 ml PO BID #200 mL 12/17/21 09/12/23 suspension (Carafate) bupropion HCl 300 mg 24 hr tablet, 300 mg PO QAM 01/20/23 09/12/23 extended release cholecalciferol (vitamin D3) 50 50 mcg PO DAILY 01/20/23 09/12/23 mcg (2,000 unit) capsule glyburide 5 mg tablet 5 mg PO DAILY 01/20/23 09/12/23 lisinopril 5 mg tablet 5 mg PO DAILY 01/20/23 09/12/23 metoclopramide HCl 10 mg tablet 10 mg PO QAC 01/20/23 09/12/23 trazodone 50 mg tablet 50 mg PO QHS PRN 01/20/23 09/12/23 oxybutynin chloride 5 mg 5 mg PO DAILY #90 tabs 03/14/23 09/12/23 tablet,extended release 24 hr Previous Rx's Medication Instructions Recorded acetaminophen 500 mg tablet 500 mg PO Q6H PRN pain #60 tabs 05/28/20 sucralfate 100 mg/mL oral 10 ml PO BID #200 mL 12/17/21 suspension (Carafate) oxybutynin chloride 5 mg 5 mg PO DAILY #90 tabs 03/14/23 tablet,extended release 24 hr Allergies Allergy/AdvReac Type Severity Reaction Status Date / Time amoxicillin Allergy Severe trouble Verified 09/12/23 21:55 breathing and a rash artichoke Allergy Severe ANAPHYLAXIS Verified 09/12/23 21:55 Penicillins Allergy Intermediate HIVES Verified 09/12/23 21:55 sodium hypochlorite solution Allergy Intermediate HIVES/SOB Verified 09/12/23 21:55 [sodium hypochlorite] adhesive tape Allergy Mild Skin Rash Verified 09/12/23 21:55 ibuprofen AdvReac Severe GI Bleeding Unverified 09/12/23 21:55 General Stated Complaint: GenMedical MIKE: 3 Review of Systems All systems reviewed & are unremarkable except as noted in HPI and below Exam Narrative Exam Narrative: 1.Const: Well-nourished, Well-developed, appearing stated age 2.Eyes: PERRL, no conjunctival injection, and symmetrical lids. 3.ENT: Atraumatic external nose and ears. Moist MM. Neck: Symmetric, trachea midline, No thyromegaly. Tympanic membranes are wolff and pearly, minimal sliver of serous fluid at the inferior aspect. No redness or bulging. Plus commercials all the people I was informed with no abnormal just regarding 4.CVS: +S1/S2, No murmurs or gallops. Peripheral pulses 2+ and equal in all extremities. Brisk capillary refill in all extremities. 5.RESP: Unlabored respiratory effort. Clear to auscultation bilaterally. No wheezes rales or rhonchi 6.GI: Soft, Nontender/Nondistended, No hepatosplenomegaly. No guarding or rebound. 7.MSK: Normocephalic/Atraumatic, Extremities w/o deformity or ttp No cyanosis or clubbing, Normal movement of all extremities 8.Skin: Warm, Dry. No rashes or lesions. 9.Neuro: scheme technician II-XII grossly intact. Sensation grossly intact, no focal neurologic deficits. 10.Psych: (AAO) x3. Appropriate mood and affect Course Vital Signs Vital signs: Vital Signs Temperature 36.7 C 09/12/23 21:47 Pulse 58 L 09/12/23 21:47 Respiratory Rate 16 09/12/23 21:47 Blood Pressure 141/60 H 09/12/23 21:47 Pulse Oximetry 98 09/12/23 21:47 Temperature 36.7 C 09/12/23 21:47 Temperature Source Temporal Artery Scan 09/12/23 21:47 Pulse 58 L 09/12/23 21:47 Respiratory Rate 16 09/12/23 21:47 Respiratory Effort Normal, Non-Labored 09/12/23 21:53 Respiratory Depth Normal 09/12/23 21:53 Blood Pressure 141/60 H 09/12/23 21:47 Pulse Oximetry 98 09/12/23 21:47 Pain Level 0 09/12/23 21:47 Medical Decision Making [id number] female with a past medical history of hypertension, high cholesterol, type 2 diabetes, depression, anxiety, ADHD, gastric bypass, C- sections, hysterectomy, carpal tunnel release, right AC repair, who is currently on glyburide for her diabetes, and has had no increases or changes in the dosing for years, who presents today with high and low blood sugars. Patient states that earlier today blood sugar was 300 at 8 PM, then at 915 it was 57. She did eat some food. Currently here her blood sugar is 70. She does admit to runny nose congestion and a mild sore throat for the last 2 to 3 days. She denies any fever or chills. No shortness of breath. No other complaints at this time. She denies any lightheadedness or dizziness. exam demonstrates a well-appearing female, no erythema in the posterior oropharynx. No other significant abnormalities. Normal neurologic exam. Blood sugars currently 70. She appears notably well. Will give her food, monitor closely. Will check for flu and COVID and RSV. I suspect there is a mild viral illness causing her fluctuations in glycemic index. Normally she hangs around the 150s very consistently, and so this is a bit more atypical. She denies any urinary symptoms, symptoms appear inconsistent with UTI. No concerning lung sounds to suggest pneumonia. 11:06 PM On reassessment the patient is doing well. Her blood sugars in the 130s. She continues to feel well. COVID flu and RSV are negative. I suspect viral etiology is causing her mild upper respiratory symptoms. No other significant concerning abnormalities noted. Patient's blood sugar well-controlled with just oral foods. Will recommend high protein and plant-based sources moving forward and avoidance of sugars or carbs to maintain a more steady state for blood sugars. Discussed red flags which to return. I have extensively reviewed the treatment plan and discharge instructions with the patient. I have addressed all patient concerns at this time. The patient was made aware of what symptoms to monitor for that would warrant a return to the emergency department. Discussed the plan with the patient, they demonstrate verbal understanding and agreement with our assessment and plan at this time. The documentation in this chart was dictated using [employer] dictation software. Please excuse any dictation errors. Quality:SDOH Health Related Social Needs: No Data to Display PFSH All Active Problems (Updated 09/12/23 @ 23:06 by Adolfo Keller DO) Abnormal blood sugar (Acute) URI (upper respiratory infection) (Acute) Gastroenteritis (Acute) Hypoglycemia (Acute) COVID-19 (Acute) Anxiety and depression (Acute 02/12/14) Diabetes (Acute 02/12/14) diet controlled Elevated lipids (Acute 02/12/14) Migraine (Acute 02/12/14) Numbness of left hand (Acute 07/04/17) Tubular adenoma of colon (Acute 11/26/16) Carpal tunnel syndrome on both sides (Acute) Medial epicondylitis, left elbow (Acute) CHAPARRO (nonalcoholic steatohepatitis) (Acute) Viral illness (Acute) Migraine headache without aura (Acute) Right lateral epicondylitis (Acute) Medial epicondylitis, right elbow (Acute) Cubital tunnel syndrome on right (Acute) Right wrist sprain (Acute) Contusion of right forearm (Acute) Sprain of right elbow (Acute) Bradycardia (Acute) Vomiting (Acute) Hematemesis (Acute) Sinus bradycardia (Acute) Hypokalemia (Acute) Fall (Acute) Seizure disorder (Chronic) Bipolar 1 disorder (Acute) Gastric bypass status for obesity (Acute) Chest pain (Acute) Left ankle sprain (Acute) Arm paresthesia, right (Acute) Bilateral kidney stones (Acute) Screening for colon cancer (Acute) Psychogenic nonepileptic seizure (Acute) Right carpal tunnel syndrome (Acute) Right kidney stone (Acute) Medical History Absence seizure Pt. states they happened more when she was overweight, has not had one in 1.5 years Hypertension Medial epicondylitis of elbow Spinal stenosis Snoring Obesity Family history of attention deficit hyperactivity disorder Macromastia Cubital tunnel syndrome Lumbar disc herniation Depressive disorder Adrenal abnormality Chronic back pain Cervical cancer GERD (gastroesophageal reflux disease) Kidney stone Asthma Diabetes mellitus, type 2 Polycystic ovaries Migraine Obstructive sleep apnea syndrome pt. states she does not have this anymore r/t to gastric bypass Elevated lipids Anxiety and depression Surgical History Hx of tonsillectomy History of lumbar surgery Pt reports lower back disc, rods and screws 5 years ago, 2017' H/O gastric bypass Cubital tunnel syndrome on left (09/14/17) 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 (Date of Surgery: 03/02/18 and 10/02/2019) anterior cruciate ligament reconstruction Ligation of fallopian tube Open Carpal Tunnel release (10/23/12) RIGHT SIDE, left 8.14.14 Vaginal hysterectomy Endoscopic Carpal Tunnel release (01/14/09) 09/16/2010 REPEAT ECTR RIGHT EGD - MAC (11/26/16) Colonoscopy - MAC (02/18/23) 11/26/2016 section twice Social History Smoking/Tobacco Use Status: Former Tobacco Use Quit Date: 08/01/05 Smoking risk assessment performed?: Yes Alcohol Intake: never Drug use: Never Substance use type: does not use Household members: spouse and children Housing: house Current gender identity: female What is your relationship status?: Panel score (0-1 are the most socially isolated patients): 1 Seatbelt use: always Do you feel safe at home: Yes Do you feel safe in your relationship?: Yes Discharge Plan Disposition Patient Disposition: Home Condition: Good Discharge Details Chief Complaint: GenMedical Clinical Impression: URI (upper respiratory infection), Abnormal blood sugar Primary Care Provider: Deyanira Marcus ED Provider: Adolfo Keller Meds and New Rx's Prescriptions: No Action oxybutynin chloride 5 mg tablet extended release 24hr 5 mg PO DAILY Qty: 90 1RF Rx Instructions: Note change to 1 tab daily sumatriptan succinate 50 mg tablet See Rx Instructions PO .COMPLEX PRN Rx Instructions: take 1 tab at onset of headache; if no relief may repeat 1 tab after at least 2 hrs; max = 4 tabs/24 hr PO albuterol sulfate [ProAir HFA] 90 mcg/actuation HFA aerosol inhaler 2 inh inhalation Q6H PRN fluticasone propionate [Flovent HFA] 110 mcg/actuation HFA aerosol inhaler 1 inh inhalation BID ursodiol 200 mg capsule 250 mg PO DAILY magnesium L-lactate [Magtab] 84 mg tablet extended release 84 mg PO DAILY biotin 1 mg capsule 1 mg PO DAILY divalproex [Depakote] 250 mg tablet,delayed release (DR/EC) 250 mg PO BID Patient Comments: taking once daily, in am vvyzbgijvdwp-Zs-hbro-minerals 18-0.4 mg tablet 1 tab PO DAILY bupropion HCl 300 mg tablet extended release 24 hr 300 mg PO QAM cholecalciferol (vitamin D3) 50 mcg (2,000 unit) capsule 50 mcg PO DAILY glyburide 5 mg tablet 5 mg PO DAILY lisinopril 5 mg tablet 5 mg PO DAILY metoclopramide HCl 10 mg tablet 10 mg PO QAC Rx Instructions: administer 30 minutes before meals trazodone 50 mg tablet 50 mg PO QHS PRN pantoprazole 40 mg Tablet,Delayed Release (Dr/Ec) 40 mg PO DAILY loratadine 10 mg capsule 10 mg PO DAILY PRN sucralfate [Carafate] 100 mg/mL suspension 10 ml PO BID Qty: 200 1RF acetaminophen 500 mg tablet 500 mg PO Q6H PRN (Reason: pain) Qty: 60 0RF Discharge Instructions Instructions: Upper Respiratory Infection (ED) Additional Instructions: At this time your COVID flu and RSV test is negative. I suspect another mild virus is causing your upper respiratory symptoms. Please drink plenty fluids, get plenty of sleep, and take Benadryl or loratadine as needed for congestion. Please try to stick with a high-protein and plant-based diet avoiding carbohydrates and sugars during this phase of illness. Continue to monitor your blood sugars closely. If you notice any worsening of your symptoms, or any new symptoms such as vomiting, diarrhea, fever, chills, shortness of breath, chest pain, numbness, weakness, or fainting , please return immediately to the emergency department for reevaluation. Please follow up with your primary care provider as soon as possible for reassessment and reevaluation. As always, it was a pleasure participating in your medical care today. Referrals: Deyanira Marcus [Primary Care Provider] -
[2023-09-12 22:53] LABS: COVID-19 PCR Negative (Negative); Influenza A PCR Negative (Negative); Influenza B PCR Negative (Negative); RSV PCR Negative (Negative)
[2023-09-12 22:55] LABS: Source Nasopharynx
[2023-09-12 23:11] VITALS: RESP 18
== END 2023-09-12 23:11 | disposition home or self-care (01) ==
PROVIDERS: Emergency Provider Student in an Organized Health Care Education/Training Program; PCP Nurse Practitioner Family
DX: R73.09 Other abnormal glucose (principal); E11.9 Type 2 diabetes mellitus without complications; J06.9 Acute upper respiratory infection, unspecified; R07.0 Pain in throat; Z98.0 Intestinal bypass and anastomosis status; I10 Essential (primary) hypertension
CPT/HCPCS: 36416; 82962; 87637; 99282; 99283

== ENCOUNTER 2023-11-01 20:53 | Emergency (ER) | payer MEDICAID, SELFPAY ==
[2023-11-01 20:56] VITALS: BP 125/58; PULSE 79; RESP 18; TEMP 37; O2SAT 97
--- NOTE | 2023-11-01 21:00 | RT.EKG_ITS ---
APPROVED REPORT Exam: Resting ECG Reason for Exam: epigastric pain Patient Location: E HR:66 bpm ECG Measurements Heart Rate 66 AXIS FL 151 P 11 QRSd 111 QRS 57 QT 407 T 61 QTc 425 Conclusion Sinus rhythm. early repol no stemi
[2023-11-01] MEDS: Droperidol 5 MG/2 ML VIAL IVP (21:41)
[2023-11-01 21:42] LABS: Abs Immature Grans 0.02 10^3/uL (0.0-0.06); Absolute Basophil Count 0.04 10^3/uL (0.0-0.2); Absolute Lymphocyte Count 2.23 10^3/uL (1.2-3.4); Absolute Neutrophil Count 3.52 10^3/uL (1.2-6.7); Basophils % 0.6; Eosinophils % 1.6; HCT 37.8 % (36.0-46.0); HGB 12.9 g/dL (11.2-15.7); Immature Grans % 0.3; Lymphocytes % 34.8; MCH 29.7 pg (27.0-33.0); MCHC 34.1 % (32.0-36.0); MCV 87 fL (80-95); MPV 10.6 fL (8.0-11.0); Monocytes % 7.8; Neutrophils % 54.9; Platelet Count 237 10^3/uL (130-400); RBC 4.35 10^6/uL (3.93-5.22); RDW-SD 38.5 fL; WBC 6.41 10^3/uL (4.4-10.8)
[2023-11-01] MEDS: Normal Saline 1,000 ML 1000 ML IV (21:44)
[2023-11-01 21:57] LABS: ALT 34 U/L (14-59); AST 19 U/L (15-37); Albumin 3.8 g/dL (3.4-5.0); Alkaline Phosphatase 106 U/L (46-116); BUN 16 mg/dL (7-18); Bilirubin, Total 0.3 mg/dL (0.2-1.0); CREATININE 0.9 mg/dL (0.55-1.02); Calcium 9.1 mg/dL (8.5-10.1); Chloride 107 mmol/L (98-107); Estimated GFR 82.37 (mL/min/1.73m2); Glucose 165 mg/dL (74-106); Lipase 23 U/L (16-77); Magnesium 1.9 mg/dL (1.8-2.4); Potassium 3.7 mmol/L (3.5-5.1); Sodium 145 mmol/L (136-145); Total Protein 7.6 g/dL (6.4-8.2)
--- NOTE | 2023-11-01 22:14 | ED.GENADUL_ITS ---
Discharge Plan Disposition Patient Disposition: Home Condition: Stable Discharge Details Chief Complaint: Abd Prob Clinical Impression: Abdominal pain, Vomiting Primary Care Provider: Deyanira Marcus ED Provider: Abdifatah Akbar Home Meds and New Rx's Prescriptions: No Action oxybutynin chloride 5 mg tablet extended release 24hr 5 mg PO DAILY Qty: 90 1RF Rx Instructions: Note change to 1 tab daily sumatriptan succinate 50 mg tablet See Rx Instructions PO .COMPLEX PRN Rx Instructions: take 1 tab at onset of headache; if no relief may repeat 1 tab after at least 2 hrs; max = 4 tabs/24 hr PO albuterol sulfate [ProAir HFA] 90 mcg/actuation HFA aerosol inhaler 2 inh inhalation Q6H PRN fluticasone propionate [Flovent HFA] 110 mcg/actuation HFA aerosol inhaler 1 inh inhalation BID ursodiol 200 mg capsule 250 mg PO DAILY magnesium L-lactate [Magtab] 84 mg tablet extended release 84 mg PO DAILY biotin 1 mg capsule 1 mg PO DAILY divalproex [Depakote] 250 mg tablet,delayed release (DR/EC) 250 mg PO BID Patient Comments: taking once daily, in am jijmmxmaqlln-Mq-vxhr-minerals 18-0.4 mg tablet 1 tab PO DAILY bupropion HCl 300 mg tablet extended release 24 hr 300 mg PO QAM cholecalciferol (vitamin D3) 50 mcg (2,000 unit) capsule 50 mcg PO DAILY glyburide 5 mg tablet 5 mg PO DAILY lisinopril 5 mg tablet 5 mg PO DAILY metoclopramide HCl 10 mg tablet 10 mg PO QAC Rx Instructions: administer 30 minutes before meals trazodone 50 mg tablet 50 mg PO QHS PRN pantoprazole 40 mg Tablet,Delayed Release (Dr/Ec) 40 mg PO DAILY loratadine 10 mg capsule 10 mg PO DAILY PRN sucralfate [Carafate] 100 mg/mL suspension 10 ml PO BID Qty: 200 1RF acetaminophen 500 mg tablet 500 mg PO Q6H PRN (Reason: pain) Qty: 60 0RF Discharge Instructions Instructions: Abdominal Pain (ED) Additional Instructions: Continue to take Zofran as needed. Follow-up with your PCP for reevaluation of your ongoing and chronic abdominal pain. HPI General Date/Time Provider Initiated Documentation: 04/02/24 21:34 . Limitations to Documentation: no limitations . Information obtained by: patient . HPI Narrative: 43-year-old female with past medical history of anxiety, prior gastric bypass surgery, bipolar disorder presents for evaluation of recurrent abdominal pain. Reports that she was doing some work at her house when she developed sudden onset of epigastric pain. Associated with nausea and vomiting. Reports pain radiates around to the right flank. The pain has been severe and constant. She reports multiple episodes of this pain in the past. She was recently evaluated in the ED for similar pain. Diagnosed with pancreatitis and discharged with pain medicine and Zofran. She reports that her symptoms improved and she was doing fine until tonight when they returned Related Data Home Medications Medication Instructions Recorded Confirmed pantoprazole 40 mg tablet,delayed 40 mg PO DAILY 05/11/19 11/01/23 release sumatriptan succinate 50 mg tablet See Rx Instructions PO .COMPLEX PRN 11/27/19 11/01/23 acetaminophen 500 mg tablet 500 mg PO Q6H PRN pain #60 tabs 05/28/20 11/01/23 loratadine 10 mg capsule 10 mg PO DAILY PRN 01/21/21 11/01/23 albuterol sulfate 90 mcg/actuation 2 inh inhalation Q6H PRN 03/23/21 11/01/23 aerosol inhaler (ProAir HFA) fluticasone propionate 110 1 inh inhalation BID 03/23/21 11/01/23 mcg/actuation HFA aerosol inhaler (Flovent HFA) biotin 1 mg capsule 1 mg PO DAILY 10/22/21 11/01/23 divalproex 250 mg tablet,delayed 250 mg PO BID 10/22/21 11/01/23 release (Depakote) magnesium L-lactate 84 mg 84 mg PO DAILY 10/22/21 11/01/23 tablet,extended release (Magtab) azvwzrpdvdbx-Ws-ukgr-minerals 18 1 tab PO DAILY 10/22/21 11/01/23 mg-0.4 mg tablet ursodiol 200 mg capsule 250 mg PO DAILY 10/22/21 11/01/23 sucralfate 100 mg/mL oral 10 ml PO BID #200 mL 12/17/21 11/01/23 suspension (Carafate) bupropion HCl 300 mg 24 hr tablet, 300 mg PO QAM 01/20/23 11/01/23 extended release cholecalciferol (vitamin D3) 50 50 mcg PO DAILY 01/20/23 11/01/23 mcg (2,000 unit) capsule glyburide 5 mg tablet 5 mg PO DAILY 01/20/23 11/01/23 lisinopril 5 mg tablet 5 mg PO DAILY 01/20/23 11/01/23 metoclopramide HCl 10 mg tablet 10 mg PO QAC 01/20/23 11/01/23 trazodone 50 mg tablet 50 mg PO QHS PRN 01/20/23 11/01/23 oxybutynin chloride 5 mg 5 mg PO DAILY #90 tabs 03/14/23 11/01/23 tablet,extended release 24 hr Previous Rx's Medication Instructions Recorded acetaminophen 500 mg tablet 500 mg PO Q6H PRN pain #60 tabs 05/28/20 sucralfate 100 mg/mL oral 10 ml PO BID #200 mL 12/17/21 suspension (Carafate) oxybutynin chloride 5 mg 5 mg PO DAILY #90 tabs 03/14/23 tablet,extended release 24 hr Allergies Allergy/AdvReac Type Severity Reaction Status Date / Time amoxicillin Allergy Severe trouble Verified 11/01/23 21:02 breathing and a rash artichoke Allergy Severe ANAPHYLAXIS Verified 11/01/23 21:02 Penicillins Allergy Intermediate HIVES Verified 11/01/23 21:02 sodium hypochlorite solution Allergy Intermediate HIVES/SOB Verified 11/01/23 21:02 [sodium hypochlorite] adhesive tape Allergy Mild Skin Rash Verified 11/01/23 21:02 ibuprofen AdvReac Severe GI Bleeding Unverified 11/01/23 21:02 General Stated Complaint: Abd Prob MIKE: 3 Exam Narrative Exam Narrative: Review of Systems: All systems reviewed & are unremarkable except as noted in HPI and below Well-developed, no acute distress NCAT PERRL, normal conjunctiva RRR no murmur Unlabored respiratory effort clear bilaterally Nondistended abdomen , mild epigastric tenderness without guarding or rebound, soft Extremities w/o deformity, no cyanosis, no edema No rashes or lesions. no focal neurologic deficits Appropriate mood and affect Course Vital Signs Vital signs: Vital Signs Temperature 37.0 C 11/01/23 20:56 Pulse 79 11/01/23 20:56 Respiratory Rate 18 11/01/23 20:56 Blood Pressure 125/58 L 11/01/23 20:56 Pulse Oximetry 97 11/01/23 20:56 Temperature 37.0 C 11/01/23 20:56 Pulse 79 11/01/23 20:56 Respiratory Rate 18 11/01/23 20:56 Respiratory Effort Normal 11/01/23 20:59 Blood Pressure 125/58 L 11/01/23 20:56 Pulse Oximetry 97 11/01/23 20:56 Pain Level 10 11/01/23 20:56 Lab/Test Results Lab/Test Results: Laboratory Tests Range/Units 11/01/23 21:09 WBC (4.4-10.8) 10^3/uL 6.41 RBC (3.93-5.22) 10^6/uL 4.35 Hgb (11.2-15.7) g/dL 12.9 Hct (36.0-46.0) % 37.8 MCV (80-95) fL 87 MCH (27.0-33.0) pg 29.7 MCHC (32.0-36.0) % 34.1 RDW (11.7-14.6) % 12.0 Plt Count (130-400) 10^3/uL 237 MPV (8.0-11.0) fL 10.6 Immature Gran % 0.3 Neutrophils % 54.9 Lymphocytes % 34.8 Monocytes % 7.8 Eosinophils % 1.6 Basophils % 0.6 Nucleated RBC % (0.0-0.3) % 0.0 Absolute Neutrophils (1.2-6.7) 10^3/uL 3.52 Absolute Lymphocytes (1.2-3.4) 10^3/uL 2.23 Absolute Monocytes (0.1-0.8) 10^3/uL 0.50 Absolute Eosinophils (0.0-0.7) 10^3/uL 0.10 Absolute Basophils (0.0-0.2) 10^3/uL 0.04 Sodium (136-145) mmol/L 145 Potassium (3.5-5.1) mmol/L 3.7 Chloride (98-107) mmol/L 107 Carbon Dioxide (21.0-32.0) mmol/L 27.0 Anion Gap (3-11) mmol/L 11.0 BUN (7-18) mg/dL 16 Creatinine (0.55-1.02) mg/dL 0.9 Est GFR (CKD-EPI 2020) (mL/min/1.73m2) 82.37 Glucose (74-106) mg/dL 165 H Calcium (8.5-10.1) mg/dL 9.1 Magnesium (1.8-2.4) mg/dL 1.9 Total Bilirubin (0.2-1.0) mg/dL 0.3 AST (15-37) U/L 19 ALT (14-59) U/L 34 Alkaline Phosphatase (46-116) U/L 106 Total Protein (6.4-8.2) g/dL 7.6 Albumin (3.4-5.0) g/dL 3.8 Lipase (16-77) U/L 23 Medical Decision Making Emergent evaluation of epigastric abdominal pain. Patient has recurrent and chronic abdominal pain. Her abdominal exam is benign. I reviewed her recent emergency department visits. Her last visit she did have a slightly elevated lipase. Symptoms have resolved, but returned tonight. Could be recurrent pancreatitis. Low suspicion for ACS, EKG without acute ischemic changes. Troponin negative. White blood cell count is within normal limits, there is no anemia on her lab work. Her CMP does not have significant derangement or signs of electrolyte abnormality or dehydration. Her lipase has normalized at this time. She was given IV fluids and droperidol and her symptoms have resolved. At this time she is requesting to go home. I recommend close follow-up with her PCP for her chronic abdominal pain. Medical Records Medical records reviewed: Yes I reviewed the patient's medical records. Lab Data Lab results reviewed: Yes I reviewed the patient's lab results. Quality:[facility] Health Related Social Needs: No Data to Display [facility] All Active Problems (Updated 11/01/23 @ 22:18 by Abdifatah Akbar MD) Abdominal pain (Acute) COVID-19 (Acute) Anxiety and depression (Acute 02/12/14) Diabetes (Acute 02/12/14) diet controlled Elevated lipids (Acute 02/12/14) Migraine (Acute 02/12/14) Numbness of left hand (Acute 07/04/17) Tubular adenoma of colon (Acute 11/26/16) Carpal tunnel syndrome on both sides (Acute) Medial epicondylitis, left elbow (Acute) CHAPARRO (nonalcoholic steatohepatitis) (Acute) Viral illness (Acute) Migraine headache without aura (Acute) Right lateral epicondylitis (Acute) Medial epicondylitis, right elbow (Acute) Cubital tunnel syndrome on right (Acute) Right wrist sprain (Acute) Contusion of right forearm (Acute) Sprain of right elbow (Acute) Bradycardia (Acute) Vomiting (Acute) Hematemesis (Acute) Sinus bradycardia (Acute) Hypokalemia (Acute) Fall (Acute) Seizure disorder (Chronic) Bipolar 1 disorder (Acute) Gastric bypass status for obesity (Acute) Chest pain (Acute) Left ankle sprain (Acute) Arm paresthesia, right (Acute) Bilateral kidney stones (Acute) Screening for colon cancer (Acute) Psychogenic nonepileptic seizure (Acute) Right carpal tunnel syndrome (Acute) Right kidney stone (Acute) Medical History Absence seizure Pt. states they happened more when she was overweight, has not had one in 1.5 years Hypertension Medial epicondylitis of elbow Spinal stenosis Snoring Obesity Family history of attention deficit hyperactivity disorder Macromastia Cubital tunnel syndrome Lumbar disc herniation Depressive disorder Adrenal abnormality Chronic back pain Cervical cancer GERD (gastroesophageal reflux disease) Kidney stone Asthma Diabetes mellitus, type 2 Polycystic ovaries Migraine Obstructive sleep apnea syndrome pt. 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 (Date of Surgery: 03/02/18 and 10/02/2019) anterior cruciate ligament reconstruction Ligation of fallopian tube Open Carpal Tunnel release (10/23/12) RIGHT SIDE, left 8.14.14 Vaginal hysterectomy Endoscopic Carpal Tunnel release (01/14/09) 09/16/2010 REPEAT ECTR RIGHT EGD - MAC (11/26/16) Colonoscopy - MAC (02/18/23) 11/26/2016 section twice Social History Smoking/Tobacco Use Status: Former Tobacco Use Quit Date: 08/01/05 Smoking risk assessment performed?: Yes Alcohol Intake: never Drug use: Never Substance use type: does not use Household members: spouse and children Housing: house Current gender identity: female What is your relationship status?: Panel score (0-1 are the most socially isolated patients): 1 Seatbelt use: always Do you feel safe at home: Yes Do you feel safe in your relationship?: Yes
--- NOTE | 2023-11-01 22:17 | NUR.NOTE ---
PT was given 8oz water for PO challenge. PT drank water with no issue. PT states that she is feeling better and is ready to go home. EM MD notified. Nursing Note:
[2023-11-01 22:27] VITALS: BP 122/72; PULSE 72; RESP 18; O2SAT 98
== END 2023-11-01 22:30 | disposition home or self-care (01) ==
PROVIDERS: Emergency Provider Emergency Medicine; PCP Nurse Practitioner Family
DX: R10.13 Epigastric pain (principal); R11.10 Vomiting, unspecified; E11.9 Type 2 diabetes mellitus without complications; Z79.84 Long term (current) use of oral hypoglycemic drugs; Z87.891 Personal history of nicotine dependence; Z98.84 Bariatric surgery status
CPT/HCPCS: 80053; 83690; 93005; 96361; 96374; 99284; 83735; 85025; 93010; J1790

== ENCOUNTER → 2023-11-10 05:05 | Outpatient (CLI) | payer MEDICAID, SELFPAY ==
--- NOTE | 2023-11-10 | DI.DEXA_ITS ---
Exam(s) XR DEXA BONE DENSITY W/WO ANGELICA EXAM: XR DEXA BONE DENSITY W/WO ANGELICA CLINICAL HISTORY: E66.9 Z86.39,E16.2,R73.9; obesity,Per HX other endocrine nutritional,[place] TECHNIQUE: COMPARISON: No exams were available for comparison FINDINGS: Lateral Spine Image: Unremarkable. No compression deformities identified. Left hip: Total T-Score: -1.4 Total Z-Score: -1.2 T- and Z-scores: Findings are consistent with osteopenia. Lumbar Spine: Total T-Score: -0.5 Total Z-Score: -0.2 T- and Z-scores: Within normal limits. IMPRESSION: No evidence of osteoporosis.
--- NOTE | 2023-11-10 | DI.US_ITS ---
Exam(s) US ABDOMEN LIMITED EXAM: US ABDOMEN LIMITED CLINICAL HISTORY: K76.0 Fatty (change of)liver, not elsewhere classified TECHNIQUE: Ultrasound abdomen performed using standard protocol. COMPARISON: CT CT ABDOMEN PELVIS W from 07/07/2023 US US ABDOMEN LIMITED from 09/08/2023 FINDINGS: PANCREAS: Normal where visualized. LIVER: There is increased echogenicity of the liver relative to the kidney suggesting fatty infiltrat ion. Hepatopetal flow in the Portal Vein. The liver measures in 14.9 cm length. No evidence of a hep atic mass. GALLBLADDER: No evidence of cholelithiasis. No evidence of wall thickening. No pericholecystic fluid identified. BILIARY SYSTEM: Common bile duct measures < 7 mm. No intrahepatic biliary ductal dilation. STOKES'S SIGN: Negative. RIGHT KIDNEY: Kidney is normal in size. No evidence of renal calculi. No evidence of hydronephrosis. No renal mass or cyst identified. ASCITES: None seen. IMPRESSION: Fatty infiltration of the liver. DATA REPOSITORY:
--- NOTE | 2023-11-10 08:28 | DI.RAD_ITS ---
Exam(s) XR HIP RT COMPLETE AP PELVIS EXAM: XR HIP RT COMPLETE AP PELVIS CLINICAL HISTORY: M54.17 Radiculopahty.lumbosacral region,M25.551 Pain in rt hip. TECHNIQUE: 2D digital imaging was performed of the right hip. Two images were obtained. AP pelvis a nd lateral right hip views were obtained. COMPARISON: CR,XR XR HIP LT COMPLETE AP PELVIS from 02/07/2020 FINDINGS: BONES: No acute fracture is present. No bony destructive lesion is seen. JOINTS: No dislocation present. There are postsurgical changes seen at the lumbosacral spine again. Mild degenerative changes are seen in the SI joints, right greater than left. The sacroiliac joints are unremarkable. The hips are unremarkable and well maintained. SOFT TISSUE: Normal. IMPRESSION: Unremarkable radiographs of the right hip. DATA REPOSITORY: RADIATION DOSE DELIVERED:
== END ==
PROVIDERS: PCP Nurse Practitioner Family; Visit Provider Nurse Practitioner Family
DX: M25.551 Pain in right hip (principal); M54.17 Radiculopathy, lumbosacral region; M53.3 Sacrococcygeal disorders, not elsewhere classified; R73.9 Hyperglycemia, unspecified; E16.2 Hypoglycemia, unspecified; M85.88 Other specified disorders of bone density and structure, other site; K76.0 Fatty (change of) liver, not elsewhere classified; E66.9 Obesity, unspecified; Z86.39 Personal history of other endocrine, nutritional and metabolic disease
CPT/HCPCS: 77080; 73502; 76705

== ENCOUNTER 2023-11-28 16:04 | Outpatient (REF) | payer MEDICAID, SELFPAY ==
[2023-11-28 10:42] LABS: Bilirubin Negative (Negative); Blood Negative (Negative); Clarity Clear (Clear); Glucose Negative (Negative); Ketones Negative (Negative); Leukocyte Esterase Negative (Negative); Nitrite Negative (Negative); Specific Gravity 1.025 (1.005-1.025); Urobilinogen 0.2 mg/dL (Up to 0.2)
== END 2023-11-28 16:05 | disposition home or self-care (01) ==
LOC: LBN 16:04
PROVIDERS: PCP Nurse Practitioner Family; Visit Provider Urology
DX: N39.0 Urinary tract infection, site not specified (principal)
CPT/HCPCS: 81003; 87086

== ENCOUNTER → 2023-12-21 04:47 | Outpatient (CLI) | payer MEDICAID, SELFPAY ==
--- NOTE | 2023-12-21 06:45 | DI.US_ITS ---
Exam(s) US RENAL EXAM: US RENAL CLINICAL HISTORY: monitoring renal calculi,bilat kidney stones,n20.0. TECHNIQUE: Abel scale, color and spectral Doppler were used. COMPARISON: CT CT RENAL COLIC WO from 02/26/2022 US US RENAL from 04/07/2023 CR XR DEXA BONE DENSITY W/WO ANGELICA from 11/10/2023 FINDINGS: Right kidney: cm Echogenicity: Normal Hydronephrosis: No Cyst or mass: No Nephrolithiasis: 4 millimeter echogenic focus lower pole right kidney. Stone versus artifact. Left kidney: cm Echogenicity: Normal Hydronephrosis: No Cyst or mass: No Nephrolithiasis: 5 millimeter echogenic focus mid left kidney. Stone versus artifact. Bladder:Normal. Prevoid vol: 22 cc Postvoid vol:1 cc IMPRESSION: Bilateral echogenic foci could represent stones versus artifact. They appear to be in different loca tions on the previous exam. DATA REPOSITORY:
== END ==
PROVIDERS: PCP Nurse Practitioner Family; Visit Provider Nurse Practitioner Gerontology
DX: N20.0 Calculus of kidney (principal)
CPT/HCPCS: 76770

== ENCOUNTER 2024-01-01 14:05 | Emergency (ER) | payer MEDICAID, SELFPAY ==
[2024-01-01 14:12] VITALS: BP 117/68; PULSE 70; RESP 16; TEMP 37.1; O2SAT 98
--- NOTE | 2024-01-01 14:30 | DI.RAD_ITS ---
Exam(s) XR ANKLE RT COMPLETE EXAM: XR ANKLE RT COMPLETE CLINICAL HISTORY: pain s/p fall. TECHNIQUE: 2D digital imaging was performed of the right ankle. Three images were obtained. AP, la teral and oblique views were obtained. COMPARISON: CR RIGHT FOOT COMPLETE from 01/10/2018 FINDINGS: BONES: No acute fracture is present. No bony destructive lesion is seen. There is an enthesophyte at the posterior calcaneus. JOINTS: The ankle mortise is normally aligned. SOFT TISSUE: Normal. IMPRESSION: No acute fracture or dislocation. DATA REPOSITORY: RADIATION DOSE DELIVERED:
--- NOTE | 2024-01-01 14:31 | ED.GENADUL_ITS ---
Discharge Plan Disposition Patient Disposition: Home Condition: Stable Discharge Details Clinical Impression: Right ankle sprain Primary Care Provider: Deyanira Marcus ED Provider: Dustin Blanco Home Meds and New Rx's Prescriptions: Continued phenazopyridine [Pyridium] 200 mg tablet 200 mg PO TID PRN (Reason: pain) Qty: 15 0RF sumatriptan succinate 50 mg tablet See Rx Instructions PO .COMPLEX PRN Rx Instructions: take 1 tab at onset of headache; if no relief may repeat 1 tab after at least 2 hrs; max = 4 tabs/24 hr PO albuterol sulfate [ProAir HFA] 90 mcg/actuation HFA aerosol inhaler 2 inh inhalation Q6H PRN fluticasone propionate [Flovent HFA] 110 mcg/actuation HFA aerosol inhaler 1 inh inhalation BID ursodiol 200 mg capsule 250 mg PO DAILY magnesium L-lactate [Magtab] 84 mg tablet extended release 84 mg PO DAILY biotin 1 mg capsule 1 mg PO DAILY divalproex [Depakote] 250 mg tablet,delayed release (DR/EC) 250 mg PO BID Patient Comments: taking once daily, in am revbsmqxpyik-Wz-hmgt-minerals 18-0.4 mg tablet 1 tab PO DAILY bupropion HCl 300 mg tablet extended release 24 hr 300 mg PO QAM cholecalciferol (vitamin D3) 50 mcg (2,000 unit) capsule 50 mcg PO DAILY glyburide 5 mg tablet 5 mg PO DAILY lisinopril 5 mg tablet 5 mg PO DAILY metoclopramide HCl 10 mg tablet 10 mg PO QAC Rx Instructions: administer 30 minutes before meals trazodone 50 mg tablet 50 mg PO QHS PRN oxybutynin chloride 5 mg tablet extended release 24hr 5 mg PO DAILY Qty: 90 1RF Rx Instructions: Note change to 1 tab daily pantoprazole 40 mg Tablet,Delayed Release (Dr/Ec) 40 mg PO DAILY loratadine 10 mg capsule 10 mg PO DAILY PRN sucralfate [Carafate] 100 mg/mL suspension 10 ml PO BID Qty: 200 1RF acetaminophen 500 mg tablet 500 mg PO Q6H PRN (Reason: pain) Qty: 60 0RF Discharge Instructions Additional Instructions: Your x-ray did not show any broken bones on my read, the radiologist sees anything I will give you a phone call. If you pain in a week follow-up with your primary care provider No more ill or failure setting, or emergent medical process return to the emergency department for reevaluation Stand Alone Forms: Work Release HPI General Mode of arrival: ambulatory . Date/Time Provider Initiated Documentation: 01/01/24 14:07 . Limitations to Documentation: no limitations . Information obtained by: patient . History of Present Illness 43 year old F presents to the emergency department with the chief complaint of Right ankle pain, described as moderate, Quality is described as aching, Patient started experiencing this hour(s) (1) and it has been constant. No relieving factors improve symptom(s), No exacerbating factors reported . Patient notes no other symptoms.. Patient did receive the following treatments prior to arrival, none Related Data Home Medications Medication Instructions Recorded Confirmed pantoprazole 40 mg tablet,delayed 40 mg PO DAILY 05/11/19 11/21/23 release sumatriptan succinate 50 mg tablet See Rx Instructions PO .COMPLEX PRN 11/27/19 11/21/23 acetaminophen 500 mg tablet 500 mg PO Q6H PRN pain #60 tabs 05/28/20 11/21/23 loratadine 10 mg capsule 10 mg PO DAILY PRN 01/21/21 11/21/23 albuterol sulfate 90 mcg/actuation 2 inh inhalation Q6H PRN 03/23/21 11/21/23 aerosol inhaler (ProAir HFA) fluticasone propionate 110 1 inh inhalation BID 03/23/21 11/21/23 mcg/actuation HFA aerosol inhaler (Flovent HFA) biotin 1 mg capsule 1 mg PO DAILY 10/22/21 11/21/23 divalproex 250 mg tablet,delayed 250 mg PO BID 10/22/21 11/21/23 release (Depakote) magnesium L-lactate 84 mg 84 mg PO DAILY 10/22/21 11/21/23 tablet,extended release (Magtab) ozcgaxanwrav-Qc-ashm-minerals 18 1 tab PO DAILY 10/22/21 11/21/23 mg-0.4 mg tablet ursodiol 200 mg capsule 250 mg PO DAILY 10/22/21 11/21/23 sucralfate 100 mg/mL oral 10 ml PO BID #200 mL 12/17/21 11/21/23 suspension (Carafate) bupropion HCl 300 mg 24 hr tablet, 300 mg PO QAM 01/20/23 11/21/23 extended release cholecalciferol (vitamin D3) 50 50 mcg PO DAILY 01/20/23 11/21/23 mcg (2,000 unit) capsule glyburide 5 mg tablet 5 mg PO DAILY 01/20/23 11/21/23 lisinopril 5 mg tablet 5 mg PO DAILY 01/20/23 11/21/23 metoclopramide HCl 10 mg tablet 10 mg PO QAC 01/20/23 11/21/23 trazodone 50 mg tablet 50 mg PO QHS PRN 01/20/23 11/21/23 phenazopyridine 200 mg tablet 200 mg PO TID PRN pain #15 tabs 11/18/23 11/18/23 (Pyridium) oxybutynin chloride 5 mg 5 mg PO DAILY #90 tabs 11/21/23 tablet,extended release 24 hr Previous Rx's Medication Instructions Recorded acetaminophen 500 mg tablet 500 mg PO Q6H PRN pain #60 tabs 05/28/20 sucralfate 100 mg/mL oral 10 ml PO BID #200 mL 12/17/21 suspension (Carafate) phenazopyridine 200 mg tablet 200 mg PO TID PRN pain #15 tabs 11/18/23 (Pyridium) oxybutynin chloride 5 mg 5 mg PO DAILY #90 tabs 11/21/23 tablet,extended release 24 hr Allergies Allergy/AdvReac Type Severity Reaction Status Date / Time amoxicillin Allergy Severe trouble Verified 01/01/24 14:17 breathing and a rash artichoke Allergy Severe ANAPHYLAXIS Verified 01/01/24 14:17 Penicillins Allergy Intermediate HIVES Verified 01/01/24 14:17 sodium hypochlorite solution Allergy Intermediate HIVES/SOB Verified 01/01/24 14:17 [sodium hypochlorite] adhesive tape Allergy Mild Skin Rash Verified 01/01/24 14:17 ibuprofen AdvReac Severe GI Bleeding Unverified 01/01/24 14:17 General Stated Complaint: Orthopedic MIKE: 4 Review of Systems All systems reviewed & are unremarkable except as noted in HPI and below Constitutional Constitutional: Denies chills, Denies fever(s) and Denies weakness Cardiovascular Cardiovascular: Denies chest pain and Denies dyspnea Respiratory Respiratory: Denies cough and Denies dyspnea Gastrointestinal Gastrointestinal: Denies abdominal pain, Denies nausea and Denies vomiting Musculoskeletal Musculoskeletal: Denies joint swelling Neurologic Neurologic: Denies weakness Exam Const General: no acute distress Orientation: alert HENMT Head: normal to inspection Ears: external ears normal General nose exam: external nose normal Mouth: moist mucous membranes Eyes General: appearance normal, both eyes and all related structures Neck Neck: normal visual inspection Resp Effort & Inspection: normal respiratory effort and able to speak in complete sentences Cardio Rate: regular rate Skin General skin exam: no rashes or lesions noted Neuro General: patient alert and patient oriented x3 Extrem General: normal to inspection, full ROM and capillary refill normal Psych Mental Status: mental status grossly normal Course Vital Signs Vital signs: Vital Signs Temperature 37.1 C 01/01/24 14:12 Pulse 70 01/01/24 14:12 Respiratory Rate 16 01/01/24 14:12 Blood Pressure 117/68 01/01/24 14:12 Pulse Oximetry 98 01/01/24 14:12 Temperature 37.1 C 01/01/24 14:12 Temperature Source Temporal Artery Scan 01/01/24 14:12 Pulse 70 01/01/24 14:12 Respiratory Rate 16 01/01/24 14:12 Blood Pressure 117/68 01/01/24 14:12 Blood Pressure Position Sitting 01/01/24 14:12 Pulse Oximetry 98 01/01/24 14:12 Oxygen Delivery Method Room Air 01/01/24 14:12 Oxygen Flow Rate 0 01/01/24 14:12 Pain Level 8 01/01/24 14:12 Medical Decision Making 43-year-old female states she was on a dog and slipped off of it and rolled her right ankle. Did not hit her head or loss of consciousness. She has pain over the lateral malleolus and came here for evaluation. She is able to bear weight though with a limp. She has tenderness over the lateral malleolus without a palpable or visible deformity, has full range of motion of the ankle, no pain over the posterior ankle with intact plantarflexion with squeezing of her calf. Intact sensation and pulses and no tenderness of the foot. No tenderness of the knee and proximal tib-fib. Suspect ankle sprain but will obtain x-rays to evaluate for fracture. X-ray shows no acute findings on my read, patient stable no pain elsewhere. Current V rad turnaround time for reads is over an hour, patient does want a wait for results which I feel is reasonable. Will call her if there is anything of concern. Advised to follow-up with her PCP if not improving in 1 to 2 weeks and return cautions given Differential Diagnosis Differential Diagnosis: Sprain, contusion, fracture Imaging Data Radiologic Study: Attestation: I personally reviewed and interpreted this imaging study as follows: Imaging: X-Ray My impression: No acute findings on ankle x-ray on my read Quality:SDOH Health Related Social Needs: No Data to Display PFSH All Active Problems (Updated 01/01/24 @ 15:35 by Dustin Blanco MD) Right ankle sprain (Acute) COVID-19 (Acute) Anxiety and depression (Acute 02/12/14) Diabetes (Acute 02/12/14) diet controlled Elevated lipids (Acute 02/12/14) Migraine (Acute 02/12/14) Numbness of left hand (Acute 07/04/17) Tubular adenoma of colon (Acute 11/26/16) Carpal tunnel syndrome on both sides (Acute) Medial epicondylitis, left elbow (Acute) CHAPARRO (nonalcoholic steatohepatitis) (Acute) Viral illness (Acute) Migraine headache without aura (Acute) Right lateral epicondylitis (Acute) Medial epicondylitis, right elbow (Acute) Cubital tunnel syndrome on right (Acute) Right wrist sprain (Acute) Contusion of right forearm (Acute) Sprain of right elbow (Acute) Bradycardia (Acute) Vomiting (Acute) Hematemesis (Acute) Sinus bradycardia (Acute) Hypokalemia (Acute) Fall (Acute) Seizure disorder (Chronic) Bipolar 1 disorder (Acute) Gastric bypass status for obesity (Acute) Chest pain (Acute) Left ankle sprain (Acute) Arm paresthesia, right (Acute) Bilateral kidney stones (Acute) Screening for colon cancer (Acute) Psychogenic nonepileptic seizure (Acute) Right carpal tunnel syndrome (Acute) Right kidney stone (Acute) Medical History Absence seizure Pt. states they happened more when she was overweight, has not had one in 1.5 years Hypertension Medial epicondylitis of elbow Spinal stenosis Snoring Obesity Family history of attention deficit hyperactivity disorder Macromastia Cubital tunnel syndrome Lumbar disc herniation Depressive disorder Adrenal abnormality Chronic back pain Cervical cancer GERD (gastroesophageal reflux disease) Kidney stone Asthma Diabetes mellitus, type 2 Polycystic ovaries Migraine Obstructive sleep apnea syndrome pt. 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 (Date of Surgery: 03/02/18 and 10/02/2019) anterior cruciate ligament reconstruction Ligation of fallopian tube Open Carpal Tunnel release (10/23/12) RIGHT SIDE, left 8.14.14 Vaginal hysterectomy Endoscopic Carpal Tunnel release (01/14/09) 09/16/2010 REPEAT ECTR RIGHT EGD - MAC (11/26/16) Colonoscopy - MAC (02/18/23) 11/26/2016 section twice Social History Smoking/Tobacco Use Status: Former Tobacco Use Quit Date: 08/01/05 Smoking risk assessment performed?: Yes Alcohol Intake: never Drug use: Never Substance use type: does not use Household members: spouse and children Housing: house Current gender identity: female What is your relationship status?: Panel score (0-1 are the most socially isolated patients): 1 Seatbelt use: always Do you feel safe at home: Yes Do you feel safe in your relationship?: Yes
[2024-01-01 15:45] VITALS: BP 117/68; PULSE 70; RESP 16; TEMP 37.1; O2SAT 98
--- NOTE | 2024-01-01 16:11 | DI.VRAD_ITS ---
PROCEDURE INFORMATION: Exam: XR Right Ankle Exam date and time: 01/01/2024 3:21 PM Age: 43 years old Clinical indication: Ankle; Right; Patient HX: Pain S/P fall TECHNIQUE: Imaging protocol: Radiologic exam of the right ankle. Views: 3 or more views. COMPARISON: CR RIGHT FOOT COMPLETE 01/10/2018 8:58 PM FINDINGS: Bones/joints: Normal. Soft tissues: Normal. IMPRESSION: No acute findings. Dictated and Authenticated by: Bhavesh Monet MD. Ordering:ZEB Chan MD
== END 2024-01-01 15:47 | disposition home or self-care (01) ==
PROVIDERS: Emergency Provider Emergency Medicine; PCP Nurse Practitioner Family
DX: S93.401A Sprain of unspecified ligament of right ankle, initial encounter (principal); W17.89XA Other fall from one level to another, initial encounter
CPT/HCPCS: 29515; 99283; 73610

== ENCOUNTER 2024-01-03 13:18 | Outpatient (REF) | payer MEDICAID, SELFPAY ==
--- NOTE | 2024-01-03 12:30 | PAPFT_PTH ---
PATIENT: Dawn Nye LOC: [facility]#:[id number] AGE/SX: 43/F ROOM: RE01/03/[address]: Deyanira Marcus : 1980 BED: DIS: 01/03/2024 SPEC #: [id number] RECD: 01/03/24 17:52 STATUS: BHANU REFreda #: [id number] AMY: 01/03/24 12:[address]: Deyanira Marcus DEPT: [facility] Cytology RECD BY: Karyn Santo Tissues: 1 - CX/ENDOCX FOR PAP SMEARS Procedures: PAP THIN PREP/UVM Screening HPV DNA PROBE Comments: [id number]
[2024-01-03 16:06] LABS: Calculated LDL 97 mg/dL (<100); Cholesterol 183 mg/dL (<200); HDL Cholesterol 75 mg/dL (40-60); Triglyceride 59 mg/dL (<150); Vitamin B12 > 2000 pg/mL (193-986)
[2024-01-04 10:23] LABS: HIV-1/2 Ag & Ab Screen Negative (Negative)
[2024-01-04 10:50] LABS: Hepatitis C Ab w Rflx HCV PCR Negative (Negative)
[2024-01-04 11:29] LABS: Syphilis Serology (RPR) Negative (Negative)
== END 2024-01-03 13:19 | disposition home or self-care (01) ==
LOC: NCHCN 13:18
PROVIDERS: PCP Nurse Practitioner Family; Visit Provider Nurse Practitioner Family
DX: Z12.4 Encounter for screening for malignant neoplasm of cervix (principal); Z00.00 Encounter for general adult medical examination without abnormal findings; K21.9 Gastro-esophageal reflux disease without esophagitis; Z13.6 Encounter for screening for cardiovascular disorders
CPT/HCPCS: 80061; 86803; 87389; 88142; 82607; 86592; 87624

== ENCOUNTER → 2024-01-05 04:51 | Outpatient (CLI) | payer MEDICAID, SELFPAY ==
--- NOTE | 2024-01-05 | DI.MAMMO_ITS ---
Exam(s) MAMMO SCREENING EXAM: MAMMO SCREENING CLINICAL HISTORY: SCREENING, Z12.31. TECHNIQUE: Bilateral full field digital CC and MLO mammographic images were obtained with 3D tomosyn thesis and utilizing computer aided detection (CAD). COMPARISON: Prior mammograms were reviewed. Prior ultrasound 11/04/2022 was also reviewed FINDINGS: There has been no significant change in the appearance and distribution of the fibroglandular tissue. There are no new spiculated masses nor malignant appearing microcalcification groups. There is no significant architectural distortion nor skin thickening-retraction. IMPRESSION: No radiographic evidence of malignancy. BI-RADS Category 1 - Negative Breast Density - Category B - Scattered areas of fibroglandular density Breast density Category C or D implies that the patient has dense breast tissue. Dense breast tissue can make it harder to find cancer on a mammogram. Dense breast tissue is also associated with an incr eased risk of breast cancer. This information about the result of the mammogram report was provided to the patient to raise their awareness. Use this report when you speak with the patient about their risks for breast cancer, which includes their family history. At that time, you may recommend additional screening tests (Ultrasoun d or MRI) as these tests may add significant information. A negative radiographic report should not delay biopsy if a dominant or clinically suspicious mass is present. Up to ten percent of cancers are not identified on mammography. A negative report may reinforce clinical impression. Adenosis and dense breasts may obscure an underlying neoplasm. False positive reports average 6 to 10%. Patient will receive a letter notifying them of these results.
== END ==
PROVIDERS: PCP Nurse Practitioner Family; Visit Provider Nurse Practitioner Family
DX: Z12.31 Encounter for screening mammogram for malignant neoplasm of breast (principal)
CPT/HCPCS: 77063; 77067

== ENCOUNTER 2024-01-12 11:25 | Day surgery (SDC) | payer MEDICAID, SELFPAY ==
[2024-01-12] VITALS (18 sets, daily range): BP systolic 90–112; BP diastolic 32–61; PULSE 49–63; RESP 10–17; TEMP 36.3–36.6; O2SAT 94–100; BMI 22.8
[2024-01-12] MEDS: Lactated Ringers 1,000 ML 80 ML IV (11:57)
--- NOTE | 2024-01-12 12:07 | HPE_ITS ---
Date of service: 01/12/24 Time of Service: 12:07 Assessment and Plan Assessment and plan (1) Bilateral kidney stones: Status: Acute Assessment and plan: We will only be addressing her left-sided kidney stone today. We will perform cystoscopy, left retrograde pyelogram and left flexible ureteroscopy. We will have our holmium laser lithotripter available to treat a stone if it is visible in the collecting system. History of Present Illness History of Present Illness Chief Complaint: Left kidney stone Narrative: This is a 43-year-old woman who has a history of bilateral kidney stones. She is currently experiencing some left flank pain. The pain began about a month ago and has persisted. On renal ultrasound, there were hyperechoic structures in both kidneys which were interpreted as either stones versus artifact. There is no hydronephrosis. She presents for possible ureteroscopy and holmium laser lithotripsy of a left sided stone. In the past, her stones have been calcium based Review of Systems Narrative: No fevers or chills No vision change or dysphasia Diabetes. No thyroid dysfunction. No shortness of breath, cough or hemoptysis No chest pain or palpitations No hepatitis, ulcers, jaundice, diarrhea or constipation No seizures, strokes or peripheral neuropathy No bleeding disorders or anemia Arthralgia. Carpal tunnel. No gout PFSH All Active Problems Right ankle sprain (Acute) COVID-19 (Acute) Right kidney stone (Acute) Right carpal tunnel syndrome (Acute) Psychogenic nonepileptic seizure (Acute) Screening for colon cancer (Acute) Bilateral kidney stones (Acute) Arm paresthesia, right (Acute) Left ankle sprain (Acute) Chest pain (Acute) Gastric bypass status for obesity (Acute) Bipolar 1 disorder (Acute) Seizure disorder (Chronic) Fall (Acute) Hypokalemia (Acute) Sinus bradycardia (Acute) Hematemesis (Acute) Vomiting (Acute) Bradycardia (Acute) Sprain of right elbow (Acute) Contusion of right forearm (Acute) Right wrist sprain (Acute) Cubital tunnel syndrome on right (Acute) Medial epicondylitis, right elbow (Acute) Right lateral epicondylitis (Acute) Migraine headache without aura (Acute) Viral illness (Acute) CHAPARRO (nonalcoholic steatohepatitis) (Acute) Medial epicondylitis, left elbow (Acute) Carpal tunnel syndrome on both sides (Acute) Tubular adenoma of colon (Acute 11/26/16) Numbness of left hand (Acute 07/04/17) Migraine (Acute 02/12/14) Elevated lipids (Acute 02/12/14) Diabetes (Acute 02/12/14) diet controlled Anxiety and depression (Acute 02/12/14) Medical History Absence seizure Pt. states she had one 01/04/24, pt. states she was over heated, states she was in the bathtub and her daughter said she was shaking and her eyes rolled back in her head Hypertension Medial epicondylitis of elbow Spinal stenosis Snoring Obesity Family history of attention deficit hyperactivity disorder Macromastia Cubital tunnel syndrome Lumbar disc herniation Depressive disorder Adrenal abnormality Chronic back pain Cervical cancer GERD (gastroesophageal reflux disease) Kidney stone Asthma Diabetes mellitus, type 2 Polycystic ovaries Migraine Obstructive sleep apnea syndrome pt. 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 (Date of Surgery: 03/02/18 and 10/02/2019) anterior cruciate ligament reconstruction Ligation of fallopian tube Open Carpal Tunnel release (10/23/12) RIGHT SIDE, left 8.14.14 Vaginal hysterectomy Endoscopic Carpal Tunnel release (01/14/09) 09/16/2010 REPEAT ECTR RIGHT EGD - MAC (11/26/16) Colonoscopy - MAC (02/18/23) 11/26/2016 section twice Social History Smoking/Tobacco Use Status: Former Tobacco Use Quit Date: 08/01/05 Smoking risk assessment performed?: Yes Alcohol Intake: never Drug use: Never Substance use type: does not use Household members: spouse and children Housing: apartment Current gender identity: female What is your relationship status?: Panel score (0-1 are the most socially isolated patients): 1 Seatbelt use: always Additional [facility] Med[facility] Allergies and Home Medications Allergies Allergy/AdvReac Type Severity Reaction Status Date / Time amoxicillin Allergy Severe trouble Verified 01/12/24 11:49 breathing and a rash artichoke Allergy Severe ANAPHYLAXIS Verified 01/12/24 11:49 Penicillins Allergy Intermediate HIVES Verified 01/12/24 11:49 sodium hypochlorite solution Allergy Intermediate HIVES/SOB Verified 01/12/24 11:49 [sodium hypochlorite] adhesive tape Allergy Mild Skin Rash Verified 01/12/24 11:49 ibuprofen AdvReac Severe GI Bleeding Verified 01/12/24 11:49 Home Medications Medication Instructions Recorded Confirmed Type pantoprazole 40 mg tablet,delayed 40 mg PO DAILY 05/11/19 01/12/24 History release sumatriptan succinate 50 mg tablet See Rx Instructions PO .COMPLEX PRN 11/27/19 01/12/24 History acetaminophen 500 mg tablet 500 mg PO Q6H PRN pain #60 tabs 05/28/20 01/12/24 Rx loratadine 10 mg capsule 10 mg PO DAILY PRN 01/21/21 01/12/24 History albuterol sulfate 90 mcg/actuation 2 inh inhalation Q6H PRN 03/23/21 01/12/24 History aerosol inhaler (ProAir HFA) fluticasone propionate 110 1 inh inhalation BID 03/23/21 01/12/24 History mcg/actuation HFA aerosol inhaler (Flovent HFA) biotin 1 mg capsule 1 mg PO DAILY 10/22/21 01/12/24 History divalproex 250 mg tablet,delayed 250 mg PO BID 10/22/21 01/12/24 History release (Depakote) magnesium L-lactate 84 mg 84 mg PO DAILY 10/22/21 01/12/24 History tablet,extended release (Magtab) rwneqqhylzib-Sb-futp-minerals 18 1 tab PO DAILY 10/22/21 01/12/24 History mg-0.4 mg tablet ursodiol 200 mg capsule 250 mg PO DAILY 10/22/21 01/12/24 History sucralfate 100 mg/mL oral 10 ml PO BID #200 mL 12/17/21 01/12/24 Rx suspension (Carafate) bupropion HCl 300 mg 24 hr tablet, 300 mg PO QAM 01/20/23 01/12/24 History extended release cholecalciferol (vitamin D3) 50 50 mcg PO DAILY 01/20/23 01/12/24 History mcg (2,000 unit) capsule glyburide 5 mg tablet 5 mg PO DAILY 01/20/23 01/12/24 History lisinopril 5 mg tablet 5 mg PO DAILY 01/20/23 01/12/24 History metoclopramide HCl 10 mg tablet 10 mg PO QAC 01/20/23 01/12/24 History trazodone 50 mg tablet 50 mg PO QHS PRN 01/20/23 01/12/24 History phenazopyridine 200 mg tablet 200 mg PO TID PRN pain #15 tabs 11/18/23 01/12/24 Rx (Pyridium) oxybutynin chloride 5 mg 5 - 10 mg (1 - 2 x 5 mg) PO DAILY 01/09/24 01/12/24 Rx tablet,extended release 24 hr #180 tabs Exam Const General: cooperative and comfortable Neck Neck: supple Resp Effort & Inspection: normal respiratory effort Auscultation: clear to auscultation bilaterally Cardio Rate: regular rate Rhythm: regular rhythm GI Palpation: soft and no masses Neuro General: patient alert, patient awake and patient oriented x3 Results Labs Labs: RUN DATE: 01/12/24 [facility] PAGE 1 RUN TIME: [address] RUN USER: [place] [address] Swathi Mims MD,PhD PATIENT REPORT PATIENT: Dawn Nye LOC: [facility] U #: [id number] /SX: 1980 F ROOM: RE02/25/[address]: BRE CALDERÓN MD [place]US[place] [facility] [place]: SPEC #: [id number] AMY: 02/25/22 STATUS: COMP REQ #: [id number] RECD: 02/25/[address]: BRE CALDERÓN MD ENTERED: 02/25/[address]: SANDEEP SWANN APRN FAX #: ORDERED: Stone Anaylsis QUERIES: Source: Left Kidney Test Result Flag Reference Verified Kidney Stone Analysis Source: Left Kidney 03/05/22 Interpretation SEE BELOW 03/05/22 RESULT: 100% Calcium oxalate monohydrate Test Performed by: [facility] [address] [place] [address] Stockroom Supervisor: Jem Woods M.D. Ph.D.; CLIA# [id number] Patient: Dawn Nye LABORATORY Acct#[id number] Unit#[id number] Last Vital Signs Temp 36.6 C 01/12/24 11:52 Pulse 63 01/12/24 11:52 Resp 16 01/12/24 11:52 BP 112/52 L 01/12/24 11:52 Pulse Ox 97 01/12/24 11:52 Time Spent Time spent with Patient: <40 minutes Time was spent: other
--- NOTE | 2024-01-12 12:12 | W.ANESPRE ---
General Info Date of Service Date Performed: 01/12/24 Height: 5 ft 6 in Weight: 64.4 kg Body Mass Index (BMI): 22.8 Surgical Procedure: Operation Date: 01/12/24 13:10 Proposed Procedure Side Surgeon p Cystoscopy/Retrograde/Ureteroscopy/Stone Manipulation/ ? Stent Left Mika Sandy MD Actual Procedure Side Surgeon p Cystoscopy/Retrograde/Ureteroscopy/Stone Manipulation/ ? Stent Left Mika Sandy MD Pre-Op Diagnosis Post-Op Diagnosis LEFT KIDNEY STONE LEFT KIDNEY STONE Meds Allergies and Home Medications Allergies Allergy/AdvReac Type Severity Reaction Status Date / Time amoxicillin Allergy Severe trouble Verified 01/12/24 11:49 breathing and a rash artichoke Allergy Severe ANAPHYLAXIS Verified 01/12/24 11:49 Penicillins Allergy Intermediate HIVES Verified 01/12/24 11:49 sodium hypochlorite solution Allergy Intermediate HIVES/SOB Verified 01/12/24 11:49 [sodium hypochlorite] adhesive tape Allergy Mild Skin Rash Verified 01/12/24 11:49 ibuprofen AdvReac Severe GI Bleeding Verified 01/12/24 11:49 Home Medication Medication Instructions Recorded pantoprazole 40 mg tablet,delayed 40 mg PO DAILY 05/11/19 release sumatriptan succinate 50 mg tablet See Rx Instructions PO .COMPLEX PRN 11/27/19 acetaminophen 500 mg tablet 500 mg PO Q6H PRN pain #60 tabs 05/28/20 loratadine 10 mg capsule 10 mg PO DAILY PRN 01/21/21 albuterol sulfate 90 mcg/actuation 2 inh inhalation Q6H PRN 03/23/21 aerosol inhaler (ProAir HFA) fluticasone propionate 110 1 inh inhalation BID 03/23/21 mcg/actuation HFA aerosol inhaler (Flovent HFA) biotin 1 mg capsule 1 mg PO DAILY 10/22/21 divalproex 250 mg tablet,delayed 250 mg PO BID 10/22/21 release (Depakote) magnesium L-lactate 84 mg 84 mg PO DAILY 10/22/21 tablet,extended release (Magtab) bcjacxnhbwky-Ei-unfw-minerals 18 1 tab PO DAILY 10/22/21 mg-0.4 mg tablet ursodiol 200 mg capsule 250 mg PO DAILY 10/22/21 sucralfate 100 mg/mL oral 10 ml PO BID #200 mL 12/17/21 suspension (Carafate) bupropion HCl 300 mg 24 hr tablet, 300 mg PO QAM 01/20/23 extended release cholecalciferol (vitamin D3) 50 50 mcg PO DAILY 01/20/23 mcg (2,000 unit) capsule glyburide 5 mg tablet 5 mg PO DAILY 01/20/23 lisinopril 5 mg tablet 5 mg PO DAILY 01/20/23 metoclopramide HCl 10 mg tablet 10 mg PO QAC 01/20/23 trazodone 50 mg tablet 50 mg PO QHS PRN 01/20/23 phenazopyridine 200 mg tablet 200 mg PO TID PRN pain #15 tabs 11/18/23 (Pyridium) oxybutynin chloride 5 mg 5 - 10 mg (1 - 2 x 5 mg) PO DAILY 01/09/24 tablet,extended release 24 hr #180 tabs Current Visit Medications: Current Medications Generic Name Dose Route Start Last Admin Trade Name Freq PRN Reason Stop Dose Admin Ringer's Solution 1,000 mls @ 80 mls/hr 01/12/24 06:00 01/12/24 11:57 IV 01/12/24 23:59 80 mls/hr INFUSION CORKY Administration Gentamicin Sulfate 160 mg/ 104 mls @ 208 mls/hr 01/12/24 06:00 Sodium Chloride IVPB 01/12/24 23:59 PREOP CORKY IV Miscellaneous Supplies 1 each 01/12/24 06:00 Iv Access IV 01/12/24 23:59 DIRECTED CORKY Sodium Chloride 0 ml 01/12/24 06:00 Normal Saline Flush 10 Ml Syr IV 01/12/24 23:59 PRN PRN Sodium Chloride 0 ml 01/12/24 06:00 Normal Saline 10 Ml Vial IJ 01/12/24 23:59 DIRECTED PRN Sterile Water 0 ml 01/12/24 06:00 Water,Injection,Sterile 10 Ml Vial IJ 01/12/24 23:59 DIRECTED PRN PFSH Active Problems Active Problems: Problem Status Onset Code Right ankle sprain S93.401A COVID-19 U07.1 Right kidney stone N20.0 Right carpal tunnel syndrome G56.01 Psychogenic nonepileptic seizure F44.5 Screening for colon cancer Z12.11 Bilateral kidney stones N20.0 Arm paresthesia, right R20.2 Left ankle sprain S93.402A Chest pain R07.9 Gastric bypass status for obesity Z98.84 Bipolar 1 disorder F31.9 Seizure disorder G40.909 Fall W19.XXXA Hypokalemia E87.6 Sinus bradycardia R00.1 Hematemesis K92.0 Vomiting R11.10 Bradycardia R00.1 Sprain of right elbow S53.401A Contusion of right forearm S50.11XA Right wrist sprain S63.501A Cubital tunnel syndrome on right G56.21 Medial epicondylitis, right elbow M77.01 Right lateral epicondylitis M77.11 Migraine headache without aura G43.009 Viral illness B34.9 CHAPARRO (nonalcoholic steatohepatitis) K75.81 Medial epicondylitis, left elbow M77.02 Carpal tunnel syndrome on both sides G56.03 Tubular adenoma of colon 11/26/16 D12.6 Numbness of left hand 07/04/17 R20.0 Migraine 02/12/14 G43.909 Elevated lipids 02/12/14 E78.5 Diabetes 02/12/14 E11.9 Anxiety and depression 02/12/14 F41.9, F32.9 Medical History Medical History Absence seizure Pt. states she had one 01/04/24, pt. states she was over heated, states she was in the bathtub and her daughter said she was shaking and her eyes rolled back in her head Hypertension Medial epicondylitis of elbow Spinal stenosis Snoring Obesity Family history of attention deficit hyperactivity disorder Macromastia Cubital tunnel syndrome Lumbar disc herniation Depressive disorder Adrenal abnormality Chronic back pain Cervical cancer GERD (gastroesophageal reflux disease) Kidney stone Asthma Diabetes mellitus, type 2 Polycystic ovaries Migraine Obstructive sleep apnea syndrome pt. states she does not have this anymore r/t to gastric bypass Elevated lipids Anxiety and depression Medical History Comments:: adhesive tape allergy Surgical History Surgical History Hx of tonsillectomy History of lumbar surgery Pt reports lower back disc, rods and screws 5 years ago, 2016' H/O gastric bypass Cubital tunnel syndrome on left (09/14/17) 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 (Date of Surgery: 03/02/18 and 10/02/2019) anterior cruciate ligament reconstruction Ligation of fallopian tube Open Carpal Tunnel release (10/23/12) RIGHT SIDE, left 8.14.14 Vaginal hysterectomy Endoscopic Carpal Tunnel release (01/14/09) 09/16/2010 REPEAT ECTR RIGHT EGD - MAC (11/26/16) Colonoscopy - MAC (02/18/23) 11/26/2016 section twice Tobacco Smoking/Tobacco Use Status: Former Tobacco Use Alcohol Alcohol Intake: never Substance Use Substance use: Never Substance use type: does not use Vital Signs and Lab Results Vital Signs Most Recent Vital Signs in EMR: Most Recent Vital Signs Temp Pulse Resp BP Pulse Ox 36.6 C 63 16 112/52 L 97 01/12/24 11:52 01/12/24 11:52 01/12/24 11:52 01/12/24 11:52 01/12/24 11:52 Point of Care Results Point of Care Results: Finger Stick Blood Glucose 87 01/12/24 11:47 Lab Results Blood Type / Crossmatch: No Data to Display Complete Blood Count: No Data to Display Complete Metabolic Panel: No Data to Display Liver Function Panel: No Data to Display Coagulation Panel: No Data to Display Cardiac Panel: No Data to Display Arterial Blood Gas: No Data to Display Venous Blood Gas: No Data to Display Pancreas Panel: No Data to Display Thyroid Panel: No Data to Display Infectious Disease: HIV (1&2) Ag and Ab, 4th Generation Negative (Negative) 01/03/24 12:40 Hepatitis C Antibody Negative (Negative) 01/03/24 12:40 Syphilis Serology Negative (Negative) 01/03/24 12:40 Blood Cultures: No Data to Display Toxicology Panel: No Data to Display Panel: No Data to Display Imaging and Studies Imaging and Studies Study information below may be from another EMR and interpreted by another provider. Please see original notes in EMR for more complete details. EKG Summary: 04/23: sinus dara. Anesthesia Assessment and Plan Anesthesia History Personal History: No History of Anesthesia Complications Family History: No Family History of Anesthesia Complications Exercise Tolerance Exercise Tolerance: Metabolic Equivalents>4 Pertinent Negatives Pertinent Negatives: No Symptoms of GERD, No Major Cardiovascular Symptoms or Complaints, No Major Pulmonary Symptoms or Complaints and No History of CVA/TIA Cardiac & Pulmonary Exam Cardiac Exam: Normal S1/S2 Heart Sounds Pulmonary Exam: Clear Bilateral Breath Sounds Implantable Cardiac Device Does patient have a Pacemaker or an ICD?: No Airway Exam Known Difficult Airway: No Mallampati Class: 2 Mouth Opening: Normal (> 3cm) Thyromental Distance: Greater than 3 cm Neck Range of Motion: Full ROM Neck Circumference: Normal Teeth Condition: Normal Dentition and Other (tongue ring non-removable) ASA Classification ASA Score: ASA 2 Emergency Case?: No NPO Status NPO Status: NPO Clears >2 hours, Solids >8 hours Status Status: History of Hysterectomy Anesthesia Plan Resuscitation Status: Full Code Anesthesia Technique: General Anesthesia Airway Planned: LMA Monitors Used: Standard Monitors
[2024-01-12] MEDS: GENTAMICIN 160 MG in Normal Saline 100 ML 208 MG IVPB (12:45)
[2024-01-12] MEDS: Lidocaine 2% Jelly 11 ML SYR (13:02)
[2024-01-12] MEDS: Omnipaque 300 MG/ML 50 ML BTL (13:03)
--- NOTE | 2024-01-12 13:20 | W.PM.DSUDISC ---
Date of service: 01/12/24 Time of Service: 13:20 Discharge Plan Disposition Patient Disposition: Home Discharge Details Reason For Visit: ureteroscopy Attending Provider: Mika Sandy Primary Care Provider: Deyanira Marcus Home Meds and New Rx's Prescriptions: No Action phenazopyridine [Pyridium] 200 mg tablet 200 mg PO TID PRN (Reason: pain) Qty: 15 0RF sumatriptan succinate 50 mg tablet See Rx Instructions PO .COMPLEX PRN Rx Instructions: take 1 tab at onset of headache; if no relief may repeat 1 tab after at least 2 hrs; max = 4 tabs/24 hr PO albuterol sulfate [ProAir HFA] 90 mcg/actuation HFA aerosol inhaler 2 inh inhalation Q6H PRN fluticasone propionate [Flovent HFA] 110 mcg/actuation HFA aerosol inhaler 1 inh inhalation BID ursodiol 200 mg capsule 250 mg PO DAILY magnesium L-lactate [Magtab] 84 mg tablet extended release 84 mg PO DAILY biotin 1 mg capsule 1 mg PO DAILY divalproex [Depakote] 250 mg tablet,delayed release (DR/EC) 250 mg PO BID Patient Comments: taking once daily, in am qqzzpxvdfkdu-Gv-cvqe-minerals 18-0.4 mg tablet 1 tab PO DAILY bupropion HCl 300 mg tablet extended release 24 hr 300 mg PO QAM cholecalciferol (vitamin D3) 50 mcg (2,000 unit) capsule 50 mcg PO DAILY glyburide 5 mg tablet 5 mg PO DAILY lisinopril 5 mg tablet 5 mg PO DAILY metoclopramide HCl 10 mg tablet 10 mg PO QAC Rx Instructions: administer 30 minutes before meals trazodone 50 mg tablet 50 mg PO QHS PRN oxybutynin chloride 5 mg tablet extended release 24hr 5 - 10 mg PO DAILY Qty: 180 1RF pantoprazole 40 mg Tablet,Delayed Release (Dr/Ec) 40 mg PO DAILY loratadine 10 mg capsule 10 mg PO DAILY PRN sucralfate [Carafate] 100 mg/mL suspension 10 ml PO BID Qty: 200 1RF acetaminophen 500 mg tablet 500 mg PO Q6H PRN (Reason: pain) Qty: 60 0RF Discharge Instructions Additional Instructions: no need to strain urine followup 6 to 8 weeks with renal ultrasound prior to visit Discharge Orders Discharge Orders: Discharge Order (Routine); Ordered 01/12/24 Ordered By: Mika Sandy DS: Diagnosis Discharge Diagnosis (1) Bilateral kidney stones: Status: Acute
--- NOTE | 2024-01-12 13:23 | DI.RAD_ITS ---
Exam(s) XR RETROGRADE IN OR EXAM: XR RETROGRADE IN OR CLINICAL HISTORY: Left kidney stone. TECHNIQUE: 2D and realtime digital imaging was performed. CONTRAST MATERIAL: Refer to procedure report. COMPARISON: No exams were available for comparison FINDINGS: Fluoroscopy was provided for Dr. Sandy during the performance of a retrograde evaluation of the sudheer l collecting system. Please refer to the procedure report for complete details. Ka,r=1.74 mGy IMPRESSION: RADIATION DOSE DELIVERED: 0.0 0.0 0
--- NOTE | 2024-01-12 13:28 | ROE_ITS ---
Date of service: 01/12/24 Time of Service: 13:28 Operative Note Operative Note DATE OF PROCEDURE: 01/12/24 PRE-OP DIAGNOSIS: Left kidney stone POST-OP DIAGNOSIS: other intraparanchymal kidney stone PROCEDURE: cystoscopy, left retrograde pyelogram, left flexible ureteroscopy SURGEON: Mika Sandy ANESTHESIA TYPE: Local By Surgeon and General LMA/ETT Refer to Anesthesia Record ESTIMATED BLOOD LOSS: 5 PATHOLOGY: none sent COMPLICATIONS: None Patient was transported to: PACU Patient's condition: stable Implants: none Indications: This is a 43-year-old woman who has a history of bilateral kidney stones. She has had some left flank pain. On her most recent renal ultrasound there is a question of kidney stones versus artifact however there was no hydronephrosis. Because of her left flank pain, she is agreeable to cystoscopy and left retrograde pyelogram with ureteroscopy. Findings: no stone in collecting system clot in upper pole calyx aspirated Procedure Description: The patient was given antibiotics and brought to the operating room on 01/12/2024. After successful induction of general anesthesia without intubation, she was placed in the dorsal lithotomy position. Her genitalia was prepped and draped. 2% Xylocaine jelly was instilled into the urethra to act as a local anesthetic. A 22 Bangladeshi rigid cystoscope was passed through the urethra into the bladder. The bladder was inspected with a 30 degree lens. Both ureteral orifices appeared normal with no blood on either side. No stones were seen within the lumen of the bladder. The left ureteral orifice was cannulated with a 5 Bangladeshi access catheter and a retrograde film was obtained by injecting Omnipaque through the access catheter under fluoroscopic guidance. No filling defects were seen on the retrograde pyelogram, but we utilized the retrograde for mapping of the different calyces. I passed a flexible guidewire through the lumen of the access catheter and remove the catheter. I then passed a dual-lumen catheter over the wire and positioned a second wire. We chose one of the wires as a working wire and the other as a safety wire. I then passed the flexible ureteroscope over the wo rking wire. Once the scope was passed into the renal pelvis, the wire was removed and the calyces were inspected. We paid most of our attention to the midpole calyces where the previous stone was identified. No stones were seen within the lumen of the collecting system. A small adherent stone particle was seen in one of the lower pole calyces. This particular stone particle still appeared to be within the parenchyma and was not in the collecting system itself. In the upper pole calyx, there was a clot present which I suspect was related to our instrumentation today. The clot was aspirated with a syringe attached to the ureteroscope. The patient tolerated this procedure well with no complications. She was taken to the recovery room in stable condition.
--- NOTE | 2024-01-12 13:57 | W.ANESPOSTOP ---
Postoperative Evaluation Date, Time and Location Date Performed: 01/12/24 Time Performed: 13:54 Patient Location: PACU Vital Signs Most Recent Imported Vital Signs: Most Recent Vital Signs Temp Pulse Resp BP Pulse Ox 36.3 C L 51 L 13 99/50 L 97 01/12/24 13:25 01/12/24 13:50 01/12/24 13:51 01/12/24 13:50 01/12/24 13:51 Pain Score Most Recent Pain Score: Most Recent Pain Score Pain Level 0 01/12/24 11:52 Assessment Mental Status: Awake (Alert & Oriented to Patient Baseline) Airway and Respiratory Function: Patent airway with normal (patient baseline) respiratory exam Cardiovascular Function: Hemodynamically Stable Hydration Status: Adequately Hydrated Nausea & Vomiting: No Nausea or Vomiting Pain: Pt. Denies Any Pain Peripheral Nerve Block: Patient did not receive a nerve block
[2024-01-12] MEDS: Phenazopyridine 200 MG TAB PO (14:26)
== END 2024-01-12 14:45 | disposition home or self-care (01) ==
PROVIDERS: PCP Nurse Practitioner Family; Visit Provider Urology
PROC: (CPT 52356; principal; 2024-01-12 13:00)
DX: N20.0 Calculus of kidney (principal)
CPT/HCPCS: 52356; 74420; J1100; J1580; J1885; J2001; J2405; J2704; Q9967

== ENCOUNTER 2024-02-10 16:29 | Emergency (ER) | payer MEDICAID, SELFPAY ==
[2024-02-10] VITALS (39 sets, daily range): BP systolic 91–146; BP diastolic 12–71; PULSE 53–98; RESP 18; TEMP 37.1; O2SAT 96–100
--- NOTE | 2024-02-10 17:15 | RT.EKG_ITS ---
APPROVED REPORT Exam: Resting ECG Reason for Exam: nausea/vomiting Patient Location: E HR:69 bpm ECG Measurements Heart Rate 69 AXIS NC 156 P 32 QRSd 99 QRS 16 QT 399 T 33 QTc 427 Conclusion Sinus rhythm...normal P axis, V-rate 60- 99
[2024-02-10 17:37] LABS: Abs Immature Grans 0.02 10^3/uL (0.0-0.06); Absolute Basophil Count 0.05 10^3/uL (0.0-0.2); Absolute Eosinophil Count 0.06 10^3/uL (0.0-0.7); Absolute Lymphocyte Count 3.15 10^3/uL (1.2-3.4); Absolute Monocyte Count 0.67 10^3/uL (0.1-0.8); Absolute Neutrophil Count 4.05 10^3/uL (1.2-6.7); Basophils % 0.6 %; Eosinophils % 0.8 %; HCT 40.1 % (36.0-46.0); HGB 13.7 g/dL (11.2-15.7); Immature Grans % 0.3 %; Lymphocytes % 39.4 %; MCH 29.9 pg (27.0-33.0); MCHC 34.2 % (32.0-36.0); MCV 88 fL (80-95); MPV 10.6 fL (8.0-11.0); Monocytes % 8.4 %; Neutrophils % 50.5 %; Platelet Count 260 10^3/uL (130-400); RBC 4.58 10^6/uL (3.93-5.22); RDW 11.9 % (11.7-14.6); RDW-SD 38.6 fL
[2024-02-10] MEDS: Lactated Ringers 1,000 ML 1000 ML IV (17:41)
[2024-02-10] MEDS: Ondansetron 4 MG/2 ML VIAL IVP (17:42)
[2024-02-10 17:43] LABS: Lactate 1.7 mmol/L (0.9-1.7)
[2024-02-10 17:44] LABS: BE (Venous) 0 mmol/L (-2-3); HCO3 (Venous) 25 mmol/L (23-28); O2 Sat (Venous) 89 %; TCO2 (Venous) 27 mmol/L (24-29); pCO2 (Venous) 46 mmHg (41-51); pH (Venous) 7.35 (7.31-7.41); pO2 (Venous) 60 mmHg
[2024-02-10 17:56] LABS: ALT 49 U/L (14-59); AST 25 U/L (15-37); Albumin 4.1 g/dL (3.4-5.0); Alkaline Phosphatase 86 U/L (46-116); Anion Gap 8.9 mmol/L (3-11); BUN 16 mg/dL (7-18); Bilirubin, Total 0.34 mg/dL (0.2-1.0); CO2 28.1 mmol/L (21.0-32.0); CREATININE 0.8 mg/dL (0.55-1.02); Calcium 9.5 mg/dL (8.5-10.1); Chloride 103 mmol/L (98-107); Estimated GFR 94.87 (mL/min/1.73m2); Glucose 76 mg/dL (74-106); Magnesium 1.7 mg/dL (1.8-2.4); Potassium 3.7 mmol/L (3.5-5.1); Sodium 140 mmol/L (136-145); Total Protein 7.9 g/dL (6.4-8.2)
--- NOTE | 2024-02-10 17:58 | ED.GENADUL_ITS ---
Discharge Plan Disposition Patient Disposition: Home Condition: Good Discharge Details Clinical Impression: Gastroenteritis Primary Care Provider: Deyanira Marcus ED Provider: Pam Michael Home Meds and New Rx's Prescriptions: Continued phenazopyridine [Pyridium] 200 mg tablet 200 mg PO TID PRN (Reason: pain) Qty: 15 0RF sumatriptan succinate 50 mg tablet See Rx Instructions PO .COMPLEX PRN Rx Instructions: take 1 tab at onset of headache; if no relief may repeat 1 tab after at least 2 hrs; max = 4 tabs/24 hr PO albuterol sulfate [ProAir HFA] 90 mcg/actuation HFA aerosol inhaler 2 inh inhalation Q6H PRN fluticasone propionate [Flovent HFA] 110 mcg/actuation HFA aerosol inhaler 1 inh inhalation BID ursodiol 200 mg capsule 250 mg PO DAILY magnesium L-lactate [Magtab] 84 mg tablet extended release 84 mg PO DAILY biotin 1 mg capsule 1 mg PO DAILY divalproex [Depakote] 250 mg tablet,delayed release (DR/EC) 250 mg PO BID Patient Comments: taking once daily, in am qrhnbqeopmcs-Cj-kyhq-minerals 18-0.4 mg tablet 1 tab PO DAILY bupropion HCl 300 mg tablet extended release 24 hr 300 mg PO QAM cholecalciferol (vitamin D3) 50 mcg (2,000 unit) capsule 50 mcg PO DAILY glyburide 5 mg tablet 5 mg PO DAILY lisinopril 5 mg tablet 5 mg PO DAILY metoclopramide HCl 10 mg tablet 10 mg PO QAC Rx Instructions: administer 30 minutes before meals trazodone 50 mg tablet 50 mg PO QHS PRN oxybutynin chloride 5 mg tablet extended release 24hr 5 - 10 mg PO DAILY Qty: 180 1RF pantoprazole 40 mg Tablet,Delayed Release (Dr/Ec) 40 mg PO DAILY loratadine 10 mg capsule 10 mg PO DAILY PRN sucralfate [Carafate] 100 mg/mL suspension 10 ml PO BID Qty: 200 1RF acetaminophen 500 mg tablet 500 mg PO Q6H PRN (Reason: pain) Qty: 60 0RF Discharge Instructions Additional Instructions: Please call Nargis Marcus's office first thing in the morning to schedule follow-up appointment next week if you are not feeling significantly better. If you are feeling better, I recommend follow-up in a couple of weeks just to check in after the emergency department visit today. Your workup today was very reassuring. I have recommended that you get plenty of rest, drink electrolyte rich fluids such as Gatorlyte, and advance diet slowly as tolerated, starting with chicken broths then adding in crackers, chicken noodle soup, and other gentle foods. Return to emergency care if you develop new uncontrollable vomiting, blood in your stool or vomit, severe abdominal pain, or if you are very worried and need to be rechecked again and immediately Referrals: Deyanira Marcus [Primary Care Provider] - [facility] General Date/Time Provider Initiated Documentation: 02/10/24 16:31 . HPI Narrative: Dawn is a 43-year-old female 5 years status post gastric bypass (Robert-en-Y procedure) with h/o T2DM, bipolar disorder, and kidney stones who presents to the emergency department today for evaluation of sudden onset of nausea/vomiting with diarrhea since yesterday morning. She reports that she has been unable to hold down. No. She has had multiple episodes of vomiting and diarrhea, no blood in stool or emesis. She also reports some mild burning with urination that started around the same. She denies fever/chills, headache, congestion, sore throat, chest pain, abdominal pain, rashes, recent ill contacts. She has had multiple episodes of nausea and vomiting in the past associated with gastric bypass complications. She is also status post hysterectomy. She reports blood sugars have been up to 200s since onset of illness; they do not usually run this high. Takes PO diabetes meds, no insulin. Physical exam remarkable for slightly tacky mucous membranes. Easy work of breathing, lung sounds clear bilaterally. Normal heart sounds. Abdomen soft, nondistended, nontender to palpation with normal active bowel sounds. No obvious rashes or skin lesions noted. DDx includes but is not limited to: Small bowel obstruction, viral gastroenteritis, bacterial gastroenteritis, UTI/pyelonephritis, DKA/HHS I independently interpreted the following tests: EKG reassuring, normal sinus rhythm, rate 76, no changes consistent with acute ischemia or T wave changes. CBC, CMP, UA all unremarkable. Mild hypomagnesemia noted, 1.7. CT abdomen/pelvis performed, unremarkable, no acute abnormality noted. While in the emergency department Dawn received IV fluids and Zofran for nausea/vomiting. She was able to tolerate p.o. contrast without difficulty, as well as crackers. Overall workup today very reassuring, consistent with gastroenteritis. As patient's daughter does attend daycare, likely viral. Reviewed symptomatic management/rehydration, red flags indicating need for return to emergency care, and follow-up with PCP. She is agreeable with plan of care. Related Data Home Medications ?Medication ?Instructions ?Recorded ?Confirmed pantoprazole 40 mg tablet,delayed 40 mg PO DAILY 05/11/19 02/10/24 release sumatriptan succinate 50 mg tablet See Rx Instructions PO .COMPLEX PRN 11/27/19 02/10/24 acetaminophen 500 mg tablet 500 mg PO Q6H PRN pain #60 tabs 05/28/20 02/10/24 loratadine 10 mg capsule 10 mg PO DAILY PRN 01/21/21 02/10/24 albuterol sulfate 90 mcg/actuation 2 inh inhalation Q6H PRN 03/23/21 02/10/24 aerosol inhaler (ProAir HFA) fluticasone propionate 110 1 inh inhalation BID 03/23/21 02/10/24 mcg/actuation HFA aerosol inhaler (Flovent HFA) biotin 1 mg capsule 1 mg PO DAILY 10/22/21 02/10/24 divalproex 250 mg tablet,delayed 250 mg PO BID 10/22/21 02/10/24 release (Depakote) magnesium L-lactate 84 mg 84 mg PO DAILY 10/22/21 02/10/24 tablet,extended release (Magtab) soqnpajuenvq-Kv-guxp-minerals 18 1 tab PO DAILY 10/22/21 02/10/24 mg-0.4 mg tablet ursodiol 200 mg capsule 250 mg PO DAILY 10/22/21 02/10/24 sucralfate 100 mg/mL oral 10 ml PO BID #200 mL 12/17/21 02/10/24 suspension (Carafate) bupropion HCl 300 mg 24 hr tablet, 300 mg PO QAM 01/20/23 02/10/24 extended release cholecalciferol (vitamin D3) 50 50 mcg PO DAILY 01/20/23 02/10/24 mcg (2,000 unit) capsule glyburide 5 mg tablet 5 mg PO DAILY 01/20/23 02/10/24 lisinopril 5 mg tablet 5 mg PO DAILY 01/20/23 02/10/24 metoclopramide HCl 10 mg tablet 10 mg PO QAC 01/20/23 02/10/24 trazodone 50 mg tablet 50 mg PO QHS PRN 01/20/23 02/10/24 phenazopyridine 200 mg tablet 200 mg PO TID PRN pain #15 tabs 11/18/23 02/10/24 (Pyridium) oxybutynin chloride 5 mg 5 - 10 mg (1 - 2 x 5 mg) PO DAILY 01/09/24 02/10/24 tablet,extended release 24 hr #180 tabs Previous Rx's ?Medication ?Instructions ?Recorded acetaminophen 500 mg tablet 500 mg PO Q6H PRN pain #60 tabs 05/28/20 sucralfate 100 mg/mL oral 10 ml PO BID #200 mL 12/17/21 suspension (Carafate) phenazopyridine 200 mg tablet 200 mg PO TID PRN pain #15 tabs 11/18/23 (Pyridium) oxybutynin chloride 5 mg 5 - 10 mg (1 - 2 x 5 mg) PO DAILY 01/09/24 tablet,extended release 24 hr #180 tabs Allergies Allergy/AdvReac Type Severity Reaction Status Date / Time amoxicillin Allergy Severe trouble Verified 02/10/24 16:34 breathing and a rash artichoke Allergy Severe ANAPHYLAXIS Verified 02/10/24 16:34 Penicillins Allergy Intermediate HIVES Verified 02/10/24 16:34 sodium hypochlorite solution Allergy Intermediate HIVES/SOB Verified 02/10/24 16:34 (sodium hypochlorite) adhesive tape Allergy Mild Skin Rash Verified 02/10/24 16:34 ibuprofen AdvReac Severe GI Bleeding Verified 02/10/24 16:34 General Stated Complaint: Nausea/Vomit/Diar MIKE: 3 Review of Systems Narrative: see HPI Exam Const General: cooperative, healthy appearing, comfortable and no acute distress Nutritional Appearance: average body habitus HENMT Head: normal to inspection Face and sinus: dry mucous membranes (slightly tacky) Mouth: oral mucosae normal Resp Effort & Inspection: normal respiratory effort and able to speak in complete sentences Auscultation: clear to auscultation bilaterally Cardio Rate: regular rate Rhythm: regular rhythm GI Inspection: normal to inspection Palpation: soft, not firm, not rigid and nontender Auscultation: normal bowel sounds Skin General skin exam: no rashes or lesions noted Neuro General: patient alert, patient oriented x3, gait normal, tone normal and moves all extremities Course Vital Signs Vital signs: Vital Signs Temperature 37.1 C 02/10/24 16:31 Pulse 98 H 02/10/24 16:31 Respiratory Rate 18 02/10/24 16:31 Blood Pressure 119/50 L 02/10/24 16:31 Pulse Oximetry 97 02/10/24 16:31 Temperature 37.1 C 02/10/24 16:31 Temperature Source Temporal Artery Scan 02/10/24 16:31 Pulse 81 02/10/24 17:31 Respiratory Rate 18 02/10/24 16:31 Respiratory Effort Normal, Non-Labored 02/10/24 16:36 Blood Pressure 123/54 L 02/10/24 17:31 Blood Pressure Mean 74 02/10/24 17:31 Pulse Oximetry 98 02/10/24 17:40 Oxygen Delivery Method Room Air 02/10/24 16:31 Oxygen Flow Rate 0 02/10/24 16:31 Lab/Test Results Lab/Test Results: Laboratory Tests Range/Units 02/10/24 17:28 WBC (4.4-10.8) 10^3/uL 8.00 RBC (3.93-5.22) 10^6/uL 4.58 Hgb (11.2-15.7) g/dL 13.7 Hct (36.0-46.0) % 40.1 MCV (80-95) fL 88 MCH (27.0-33.0) pg 29.9 MCHC (32.0-36.0) % 34.2 RDW (11.7-14.6) % 11.9 Plt Count (130-400) 10^3/uL 260 MPV (8.0-11.0) fL 10.6 Immature Gran % % 0.3 Neutrophils % % 50.5 Lymphocytes % % 39.4 Monocytes % % 8.4 Eosinophils % % 0.8 Basophils % % 0.6 Nucleated RBC % (0.0-0.3) % 0.0 Absolute Neutrophils (1.2-6.7) 10^3/uL 4.05 Absolute Lymphocytes (1.2-3.4) 10^3/uL 3.15 Absolute Monocytes (0.1-0.8) 10^3/uL 0.67 Absolute Eosinophils (0.0-0.7) 10^3/uL 0.06 Absolute Basophils (0.0-0.2) 10^3/uL 0.05 VBG pH (7.31-7.41) 7.35 VBG pCO2 (41-51) mmHg 46 VBG pO2 mmHg 60 VBG HCO3 (23-28) mmol/L 25 VBG Total CO2 (24-29) mmol/L 27 VBG O2 Saturation % 89 VBG Base Excess (-2-3) mmol/L 0 VBG Lactate (0.9-1.7) mmol/L 1.7 Medical Decision Making Quality:SDOH Health Related Social Needs: No Data to Display PFSH All Active Problems (Updated 02/10/24 @ 22:01 by Pam Song) Gastroenteritis (Acute) COVID-19 (Acute) Right kidney stone (Acute) Right carpal tunnel syndrome (Acute) Psychogenic nonepileptic seizure (Acute) Screening for colon cancer (Acute) Bilateral kidney stones (Acute) Arm paresthesia, right (Acute) Left ankle sprain (Acute) Chest pain (Acute) Gastric bypass status for obesity (Acute) Bipolar 1 disorder (Acute) Seizure disorder (Chronic) Fall (Acute) Hypokalemia (Acute) Sinus bradycardia (Acute) Hematemesis (Acute) Vomiting (Acute) Bradycardia (Acute) Sprain of right elbow (Acute) Contusion of right forearm (Acute) Right wrist sprain (Acute) Cubital tunnel syndrome on right (Acute) Medial epicondylitis, right elbow (Acute) Right lateral epicondylitis (Acute) Migraine headache without aura (Acute) Viral illness (Acute) CHAPARRO (nonalcoholic steatohepatitis) (Acute) Medial epicondylitis, left elbow (Acute) Carpal tunnel syndrome on both sides (Acute) Tubular adenoma of colon (Acute 11/26/16) Numbness of left hand (Acute 07/04/17) Migraine (Acute 02/12/14) Elevated lipids (Acute 02/12/14) Diabetes (Acute 02/12/14) diet controlled Anxiety and depression (Acute 02/12/14) Medical History (Updated 02/10/24 @ 22:01 by Pam M Tejas Gold) Absence seizure Pt. states she had one 01/04/24, pt. states she was over heated, states she was in the bathtub and her daughter said she was shaking and her eyes rolled back in her head Hypertension Medial epicondylitis of elbow Spinal stenosis Snoring Obesity Family history of attention deficit hyperactivity disorder Macromastia Cubital tunnel syndrome Lumbar disc herniation Depressive disorder Adrenal abnormality Chronic back pain Cervical cancer GERD (gastroesophageal reflux disease) Kidney stone Asthma Diabetes mellitus, type 2 Polycystic ovaries Migraine Obstructive sleep apnea syndrome pt. 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 (Date of Surgery: 03/02/18 and 10/02/2019) anterior cruciate ligament reconstruction Ligation of fallopian tube Open Carpal Tunnel release (10/23/12) RIGHT SIDE, left 8.14.14 Vaginal hysterectomy Endoscopic Carpal Tunnel release (01/14/09) 09/16/2010 REPEAT ECTR RIGHT EGD - MAC (11/26/16) Colonoscopy - MAC (02/18/23) 11/26/2016 section twice Social History Smoking/Tobacco Use Status: Former Tobacco Use Quit Date: 08/01/05 Smoking risk assessment performed?: Yes Alcohol Intake: never Drug use: Never Substance use type: does not use Household members: spouse and children Housing: apartment Current gender identity: female What is your relationship status?: Panel score (0-1 are the most socially isolated patients): 1 Seatbelt use: always Do you feel safe at home: Yes Do you feel safe in your relationship?: Yes Additional Social history: [employer]
[2024-02-10 18:24] LABS: Bilirubin Negative (Negative); Blood Negative (Negative); Clarity Clear (Clear); Glucose Negative (Negative); Ketones Negative (Negative); Leukocyte Esterase Negative (Negative); Nitrite Negative (Negative); Urobilinogen 0.2 mg/dL (Up to 0.2)
[2024-02-10] MEDS: Breeza Beverage 473 ML BTL PO ×2 (18:25→18:33)
[2024-02-10 19:52] LABS: COVID-19 PCR Negative (Negative); Influenza A PCR Negative (Negative); Influenza B PCR Negative (Negative); RSV PCR Negative (Negative)
[2024-02-10 19:53] LABS: Source Nasopharynx
[2024-02-10] MEDS: Omnipaque 350 MG/ML 100 ML BTL IJ (20:28)
[2024-02-10] MEDS: Normal Saline - Diluent 50 ML VIAL IJ (20:29)
--- NOTE | 2024-02-10 20:33 | DI.CT_ITS ---
Exam(s) CT ABDOMEN PELVIS W EXAM: CT ABDOMEN PELVIS W CLINICAL HISTORY: nausea/vomiting/diarrhea. TECHNIQUE: Imaging Protocol: Axial computed tomography images with coronal and sagittal reformatted images were created and reviewed CONTRAST MATERIAL: Intravenous: Omnipaque 350 Contrast volume:100 ml Oral: yes / COMPARISON: CT CT ABDOMEN PELVIS W from 07/07/2023 FINDINGS: ABDOMEN and PELVIS: Lung Bases: No acute findings. Liver: Normal density. No suspicious mass. Gallbladder and biliary tract: No radiodense calculus. No biliary dilation. Pancreas: Normal density. No abnormal calcifications or inflammatory process. No evidence of mass. Spleen: Normal. Kidneys: Normal size, contour and axis. No radiodense stones. No obstructive uropathy. No suspicious masses seen. Adrenal glands: No masses seen. Vasculature: Abdominal aorta non-dilated. Soft tissues: Unremarkable. Bladder: No gross wall thickening. No calculi.No focal mass. Bowel: Prior gastric surgery. No obstruction. No bowel wall thickening. Appendix normal. Normal q uantity of stool. Peritoneal cavity: No ascites. No focal collection. No mesenteric inflammatory response. Bones: Posterior fusion hardware at the L5-S1 level. Reproductive organs: Hysterectomy. Lymph nodes: No pathologically enlarged lymph nodes. IMPRESSION:: No acute abnormality in the abdomen or pelvis. RADIATION DOSE DELIVERED: Total DLP DATA REPOSITORY: All CT scans at this facility are submitted to the National Radiology Data Registry (NRDR) Dose Index Registry (DIR) with the [employer] (ACR). RADIATION OPTIMIZATION: All CT scans at this facility use at least one of these dose optimization te chniques: automated exposure control; mA and/or kV adjustment per patient size (includes targeted exa ms where dose is matched to clinical indication); or iterative reconstruction.
--- NOTE | 2024-02-10 21:49 | DI.VRAD_ITS ---
PROCEDURE INFORMATION: Exam: CT Abdomen And Pelvis With Contrast Exam date and time: 02/10/2024 8:28 PM Age: 43 years old Clinical indication: Nausea and vomiting; Prior surgery; Surgery date: 6+ months; Surgery type: With po contrast, h/o [id number]; Additional info: Nausea/vomiting/diarrhea TECHNIQUE: Imaging protocol: Computed tomography of the abdomen and pelvis with contrast. Contrast material: OMNI 350; Contrast volume: 100 ml; Contrast route: INTRAVENOUS (IV); Other contrast: Oral, omni 350 , 946; COMPARISON: CT ABDOMEN PELVIS W 07/07/2023 12:56 AM FINDINGS: Liver: Normal. No mass. Gallbladder and biliary ducts: Gallbladder appears moderately distended but otherwise unremarkable. No gallbladder wall thickening or evidence of cholelithiasis. No significant biliary ductal dilation. Pancreas: Normal. No ductal dilation. Spleen: Normal. No splenomegaly. Adrenal glands: Normal. No mass. Kidneys and ureters: Normal. No hydronephrosis. Stomach and bowel: Evidence of prior gastric surgery. No bowel wall thickening or evidence of bowel obstruction. Appendix: The appendix is visualized and appears normal. Intraperitoneal space: Unremarkable. No free air. No significant fluid collection. Vasculature: Unremarkable. No abdominal aortic aneurysm. Lymph nodes: Unremarkable. No enlarged lymph nodes. Urinary bladder: Unremarkable as visualized. Reproductive: Unremarkable as visualized. Bones/joints: Moderate multilevel degenerative disc changes throughout the lower thoracic spine. Orthopedic hardware produces posterior fusion of the lumbosacral junction. No vertebral body compression or acute fracture. Soft tissues: Unremarkable. IMPRESSION: No acute abnormality Dictated and Authenticated by: Bob William MD. Ordering:ANGELIA Orozco MD
== END 2024-02-10 22:15 | disposition home or self-care (01) ==
PROVIDERS: Emergency Provider Nurse Practitioner Family; PCP Nurse Practitioner Family
DX: K52.9 Noninfective gastroenteritis and colitis, unspecified (principal); I10 Essential (primary) hypertension; E11.9 Type 2 diabetes mellitus without complications; F31.9 Bipolar disorder, unspecified; Z90.710 Acquired absence of both cervix and uterus; Z98.84 Bariatric surgery status; Z98.1 Arthrodesis status; Z79.84 Long term (current) use of oral hypoglycemic drugs; Z87.891 Personal history of nicotine dependence
CPT/HCPCS: 80053; 82805; 82962; 87637; 93005; 96360; 96361; 99285; 74177; 81003; 83605; 83735; 85025; 93010; 99284; J2405; J3490; Q9967

== ENCOUNTER → 2024-02-27 01:28 | Outpatient (CLI) | payer MEDICAID, SELFPAY ==
--- NOTE | 2024-02-27 | DI.US_ITS ---
Exam(s) US RENAL EXAM: US RENAL CLINICAL HISTORY: ? hydronephrosis after ureteroscopy,kidney stone. TECHNIQUE: Abel scale, color and spectral Doppler were used. COMPARISON: CT CT ABDOMEN PELVIS W from 02/10/2024 FINDINGS: Right kidney: 10.0cm Echogenicity: Normal Hydronephrosis: No Cyst or mass: 10 millimeter cyst lower pole. Nephrolithiasis: No Left kidney: 10.8cm Echogenicity: Normal Hydronephrosis: No Cyst or mass: No Nephrolithiasis: No Bladder:Normal. Prevoid vol:248 cc Postvoid vol:0 cc IMPRESSION: No evidence of hydronephrosis. No visible calculi. DATA REPOSITORY:
== END ==
PROVIDERS: PCP Nurse Practitioner Family; Visit Provider Urology
DX: N20.0 Calculus of kidney (principal); Z98.890 Other specified postprocedural states
CPT/HCPCS: 76770

== ENCOUNTER 2024-03-14 08:30 | Outpatient (REF) | payer MEDICAID, SELFPAY ==
[2024-03-14 09:50] LABS: Bilirubin Negative (Negative); Blood Negative (Negative); Clarity Clear (Clear); Glucose Negative (Negative); Ketones Negative (Negative); Leukocyte Esterase Trace (Negative); Nitrite Negative (Negative); Urobilinogen 0.2 mg/dL (Up to 0.2); pH 6.5 (5-8)
[2024-03-14 10:57] LABS: Epithelial Cells Rare HPF (Negative)
[2024-03-14 10:58] LABS: Bacteria Few HPF (Negative); Casts Negative LPF (Negative); Crystals Negative HPF (Negative); Mucus Negative (Negative); Other Cells Negative (Negative); RBC Negative HPF (0-2)
[2024-03-14 10:59] LABS: C & S Indicated? Yes
== END 2024-03-14 08:31 | disposition home or self-care (01) ==
LOC: NCHCN 08:30
PROVIDERS: PCP Nurse Practitioner Family; Visit Provider Nurse Practitioner Family
DX: R30.0 Dysuria (principal); B96.29 Other Escherichia coli [E. coli] as the cause of diseases classified elsewhere; R82.89 Other abnormal findings on cytological and histological examination of urine
CPT/HCPCS: 87077; 81003; 81015; 87086; 87186

== ENCOUNTER 2024-03-29 16:59 | Emergency (ER) | payer MEDICAID, SELFPAY ==
[2024-03-29 17:01] VITALS: BP 107/69; PULSE 85; RESP 16; TEMP 36.6; O2SAT 96
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
--- NOTE | 2024-03-29 18:15 | DI.CT_ITS ---
Exam(s) CT HEAD WO EXAM: CT HEAD WO CLINICAL HISTORY: Head injury, blurred vision right eye, dizziness,. TECHNIQUE: Imaging Protocol: Axial computed tomography images with coronal and sagittal reformatted images were created and reviewed COMPARISON: CT CERVICAL SPINE WITHOUT CONTRA from 02/24/2017 FINDINGS: There are no skull fractures. There is no fluid in the visualized paranasal sinuses. There is no evidence of intracranial hemorrhage, mass effect, or shift of midline structures. There are no extra-axial fluid collections. The ventricles are not enlarged or shifted and there is no blo od within the ventricular system nor within the basal cisterns. IMPRESSION: No acute intracranial findings on this noninfused CT scan of the brain. RADIATION DOSE DELIVERED: 893.31mGy.cm Total DLP DATA REPOSITORY: All CT scans at this facility are submitted to the National Radiology Data Registry (NRDR) Dose Index Registry (DIR) with the [employer] (ACR). RADIATION OPTIMIZATION: All CT scans at this facility use at least one of these dose optimization te chniques: automated exposure control; mA and/or kV adjustment per patient size (includes targeted exa ms where dose is matched to clinical indication); or iterative reconstruction.
[2024-03-29 18:41] VITALS: BP 110/64; PULSE 64; RESP 18; O2SAT 98
--- NOTE | 2024-03-29 19:13 | DI.VRAD_ITS ---
PROCEDURE INFORMATION: Exam: CT Head Without Contrast Exam date and time: 03/29/2024 6:45 PM Age: 43 years old Clinical indication: Injury or trauma; Other: Head injury, blurred vision right eye, dizziness, blunt trauma (contusions or hematomas) TECHNIQUE: Imaging protocol: Computed tomography of the head without contrast. COMPARISON: CR XR cervical spine comp 4-5V 05/29/2018 11:31 AM FINDINGS: Brain: Normal. No hemorrhage. Unremarkable white matter. No mass effect. Cerebral ventricles: No ventriculomegaly. Paranasal sinuses: Visualized sinuses are unremarkable. No fluid levels. Mastoid air cells: Visualized mastoid air cells are well aerated. Bones: Unremarkable. No acute fracture. Soft tissues: Unremarkable. IMPRESSION: No acute intracranial abnormality. Dictated and Authenticated by: Cesario Ortiz MD. Ordering:ANGELIA Orozco MD
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
== END 2024-03-29 19:29 | disposition home or self-care (01) ==
PROVIDERS: Emergency Provider Nurse Practitioner Family; PCP Nurse Practitioner Family
DX: S06.0XAA Concussion with loss of consciousness status unknown, initial encounter (principal); H53.8 Other visual disturbances; W22.8XXA Striking against or struck by other objects, initial encounter
CPT/HCPCS: 99284; 70450; 99283

== ENCOUNTER 2024-05-14 15:17 | Emergency (ER) | payer MEDICAID, SELFPAY ==
[2024-05-14] VITALS (13 sets, daily range): BP systolic 109–121; BP diastolic 49–76; PULSE 69–90; RESP 15–18; TEMP 36.6; O2SAT 96–100
--- NOTE | 2024-05-14 15:30 | RT.EKG_ITS ---
APPROVED REPORT Exam: Resting ECG Reason for Exam: Lightheaded Patient Location: E HR:62 bpm ECG Measurements Heart Rate 62 AXIS WV 153 P 40 QRSd 103 QRS 22 QT 382 T 51 QTc 389 Conclusion Sinus rhythm, rate 62 No STEMI, no interval abnormalities
[2024-05-14] MEDS: Ondansetron 4 MG/2 ML VIAL IVP (16:12)
[2024-05-14] MEDS: Normal Saline Flush 10 ML SYR IVP (16:12)
[2024-05-14 16:13] LABS: Abs Immature Grans 0.02 10^3/uL (0.0-0.06); Absolute Basophil Count 0.04 10^3/uL (0.0-0.2); Absolute Eosinophil Count 0.05 10^3/uL (0.0-0.7); Absolute Lymphocyte Count 2.97 10^3/uL (1.2-3.4); Absolute Monocyte Count 0.48 10^3/uL (0.1-0.8); Absolute Neutrophil Count 4.74 10^3/uL (1.2-6.7); Basophils % 0.5 %; Eosinophils % 0.6 %; HCT 38.1 % (36.0-46.0); HGB 13.3 g/dL (11.2-15.7); Immature Grans % 0.2 %; Lymphocytes % 35.8 %; MCHC 34.9 % (32.0-36.0); MCV 86 fL (80-95); MPV 10.3 fL (8.0-11.0); Monocytes % 5.8 %; Neutrophils % 57.1 %; Platelet Count 240 10^3/uL (130-400); RBC 4.44 10^6/uL (3.93-5.22); RDW-SD 37.8 fL
[2024-05-14 16:43] LABS: ALT 47 U/L (14-59); AST 25 U/L (15-37); Albumin 3.9 g/dL (3.4-5.0); Alkaline Phosphatase 76 U/L (46-116); Anion Gap 7.9 mmol/L (3-11); BUN 14 mg/dL (7-18); Bilirubin, Total 0.22 mg/dL (0.2-1.0); CO2 29.1 mmol/L (21.0-32.0); CREATININE 0.7 mg/dL (0.55-1.02); Calcium 9.3 mg/dL (8.5-10.1); Chloride 106 mmol/L (98-107); Estimated GFR 110.67 (mL/min/1.73m2); Glucose 80 mg/dL (74-106); Lipase 25 U/L (16-77); Magnesium 1.7 mg/dL (1.8-2.4); Potassium 3.9 mmol/L (3.5-5.1); Sodium 143 mmol/L (136-145); Total Protein 7.5 g/dL (6.4-8.2); Troponin I 6 ng/L (<or=51)
--- NOTE | 2024-05-14 16:48 | ED.GENADUL_ITS ---
Discharge Plan Disposition Patient Disposition: Home Condition: Stable Discharge Details Clinical Impression: Nausea and vomiting in adult, Diabetes, CHAPARRO (nonalcoholic steatohepatitis), Seizure disorder, Bipolar 1 disorder, Gastric bypass status for obesity Primary Care Provider: Deyanira Marcus ED Provider: Hillary Galloway Home Meds and New Rx's Prescriptions: No Action phenazopyridine [Pyridium] 200 mg tablet 200 mg PO TID PRN (Reason: pain) Qty: 15 0RF sumatriptan succinate 50 mg tablet See Rx Instructions PO .COMPLEX PRN Rx Instructions: take 1 tab at onset of headache; if no relief may repeat 1 tab after at least 2 hrs; max = 4 tabs/24 hr PO albuterol sulfate [ProAir HFA] 90 mcg/actuation HFA aerosol inhaler 2 inh inhalation Q6H PRN fluticasone propionate [Flovent HFA] 110 mcg/actuation HFA aerosol inhaler 1 inh inhalation BID biotin 1 mg capsule 1 mg PO DAILY divalproex [Depakote] 250 mg tablet,delayed release (DR/EC) 250 mg PO BID Patient Comments: taking once daily, in am brcvmocejodo-Rl-wejq-minerals 18-0.4 mg tablet 1 tab PO DAILY bupropion HCl 300 mg tablet extended release 24 hr 300 mg PO QAM cholecalciferol (vitamin D3) 50 mcg (2,000 unit) capsule 50 mcg PO DAILY lisinopril 5 mg tablet 5 mg PO DAILY metoclopramide HCl 10 mg tablet 10 mg PO QAC Rx Instructions: administer 30 minutes before meals trazodone 50 mg tablet 50 mg PO QHS PRN oxybutynin chloride 5 mg tablet extended release 24hr 5 - 10 mg PO DAILY Qty: 180 1RF calcium citrate 250 mg calcium tablet 500 mg PO BID cyanocobalamin (vitamin B-12) 1,000 mcg capsule 2,500 mcg PO DAILY ondansetron 4 mg tablet,disintegrating 4 mg PO Q8H sumatriptan succinate 50 mg tablet See Rx Instructions PO .COMPLEX Rx Instructions: take 1 tab at onset of headache; if no relief may repeat 1 tab after at least 2 hrs; max = 4 tabs/24 hr PO ferrous fumarate-vitamin C 132-250 mg tablet 1 tab PO .3x week pantoprazole 40 mg Tablet,Delayed Release (Dr/Ec) 40 mg PO DAILY loratadine 10 mg capsule 10 mg PO DAILY PRN acetaminophen 500 mg tablet 500 mg PO Q6H PRN (Reason: pain) Qty: 60 0RF Discharge Instructions Instructions: Nausea and vomiting in adults Additional Instructions: You were seen in the emergency department today for evaluation of nausea with vomiting and diarrhea as well as low blood glucose. Dinner department had a full physical examination performed, had laboratory studies that were reassuring, and then the CT scan that did not show any abnormalities to account for your symptoms. I sent you home with a few doses of Zofran to be taken for symptomatic management and ensure that you are able to eat and drink and maintain your hydration. Please monitor your blood glucose, and follow-up with your primary care provider. Thank you for allowing us to be part of your care. HPI General Mode of arrival: ambulatory . Date/Time Provider Initiated Documentation: 05/14/24 15:33 . Limitations to Documentation: no limitations . Information obtained by: patient and old records reviewed . HPI Narrative: HPI: This is a 44-year-old female patient with a past medical history significant for gastric bypass surgery, asthma, bipolar disorder, and diabetes who is presenting for evaluation of nausea vomiting and low blood glucose. The patient reports that she started to have nausea with vomiting yesterday, notes that her vomit is nonbloody and nonbilious, and has not tried any medications for management of the symptoms in the home environment. She does occasionally kick take Reglan but states that this medication was not helping. This morning she noted that she was feeling lightheaded, and her Dexcom said that her sugar was 56. She states that she does not take any insulin or other oral hypoglycemics. She states that she did not try eating or drinking anything due to her concern that she would throw it up. Patient has not had fevers or chills, denies dysuria. She has some mild abdominal tenderness, states that she has had diarrhea for the last 2 days as well. Nobody else in her home is sick with similar symptoms, the patient has not had any recent travel or antibiotic use. Exam: Gen: Awake and alert, in no apparent distress HEENT: Non-icteric sclera, PERRL Neck: Supple Lungs: No apparent respiratory distress, normal respiratory effort. Lung sounds clear and equal CV: Appears well perfused, heart with regular rate and rhythm, strong distal pulses Abdomen: Non-distended, soft, tender to palpation in the periumbilical region without rigidity, rebound, or guarding MSK: Moves 4 extremities without apparent limitation in ROM. No peripheral edema Skin: Visualized skin without rashes, cyanosis. Neuro: Normal Gait, no obvious focal deficits or facial asymmetry. Speaks in full, clear sentences. Psych: Appropriate for situation. MDM: This is a 44-year-old female patient presenting for evaluation of hypoglycemia in the setting of 2 days of nausea with vomiting and diarrhea. My differential includes but is not limited to gastroenteritis, gastritis, pancreatitis, hepatitis, cholecystitis, certainly considered bowel obstruction. Patient's history of gastric bypass does increase the concern for marginal ulcer. The brief duration of her symptoms is reassuring against severe metabolic electrolyte derangements, kidney injury, dehydration. Finally, I considered hypoglycemia in the setting of poor p.o. intake, no medications which could cause hypoglycemia when taken inappropriately. Will obtain laboratory studies to include CBC, CMP, lipase, and we will obtain a CT of the patient's abdomen and pelvis to better characterize any abnormalit ies. I will provide the patient with a dose of Zofran for symptomatic management. ED Course: I independently interpreted the laboratory studies, which show no significant leukocytosis, anemia, or thrombocytopenia. The chemistry panel is without evidence of electrolyte abnormality, kidney dysfunction, or liver injury. Lipase is low. CT was independently interpreted by myself and discussed with the radiologist, which shows no abnormalities to account for the patient's symptoms. She was able to tolerate p.o. intake after Zofran. Her repeat blood glucose was 80, and the patient has a continuous glucose monitor and feels comfortable continuing to monitor for recurrence of low blood sugars in the home environment. At this time, the patient has had a full medical evaluation and is safe for discharge to home. They are hemodynamically stable, ambulatory, and tolerating PO. They are understanding of the follow-up plan and return precautions. They left our facility without incident. Hillary Galloway MD Related Data Home Medications ?Medication ?Instructions ?Recorded ?Confirmed pantoprazole 40 mg tablet,delayed 40 mg PO DAILY 05/11/19 05/14/24 release sumatriptan succinate 50 mg tablet See Rx Instructions PO .COMPLEX PRN 11/27/19 05/14/24 acetaminophen 500 mg tablet 500 mg PO Q6H PRN pain #60 tabs 05/28/20 05/14/24 loratadine 10 mg capsule 10 mg PO DAILY PRN 01/21/21 05/14/24 albuterol sulfate 90 mcg/actuation 2 inh inhalation Q6H PRN 03/23/21 05/14/24 aerosol inhaler (ProAir HFA) fluticasone propionate 110 1 inh inhalation BID 03/23/21 05/14/24 mcg/actuation HFA aerosol inhaler (Flovent HFA) biotin 1 mg capsule 1 mg PO DAILY 10/22/21 05/14/24 divalproex 250 mg tablet,delayed 250 mg PO BID 10/22/21 05/14/24 release (Depakote) bgcqhjzstgnl-Wj-yxoq-minerals 18 1 tab PO DAILY 10/22/21 05/14/24 mg-0.4 mg tablet bupropion HCl 300 mg 24 hr tablet, 300 mg PO QAM 01/20/23 05/14/24 extended release cholecalciferol (vitamin D3) 50 50 mcg PO DAILY 01/20/23 05/14/24 mcg (2,000 unit) capsule lisinopril 5 mg tablet 5 mg PO DAILY 01/20/23 05/14/24 metoclopramide HCl 10 mg tablet 10 mg PO QAC 01/20/23 05/14/24 trazodone 50 mg tablet 50 mg PO QHS PRN 01/20/23 05/14/24 phenazopyridine 200 mg tablet 200 mg PO TID PRN pain #15 tabs 11/18/23 05/14/24 (Pyridium) oxybutynin chloride 5 mg 5 - 10 mg (1 - 2 x 5 mg) PO DAILY 01/09/24 05/14/24 tablet,extended release 24 hr #180 tabs calcium citrate 500 mg PO BID 04/09/24 05/14/24 cyanocobalamin (vitamin B-12) 2,500 mcg PO DAILY 04/09/24 05/14/24 1,000 mcg capsule ferrous fumarate-vitamin C 132 1 tab PO .3x week 04/09/24 05/14/24 mg-250 mg tablet ondansetron 4 mg disintegrating 4 mg PO Q8H 04/09/24 05/14/24 tablet sumatriptan succinate 50 mg tablet See Rx Instructions PO .COMPLEX 04/09/24 05/14/24 Previous Rx's ?Medication ?Instructions ?Recorded acetaminophen 500 mg tablet 500 mg PO Q6H PRN pain #60 tabs 05/28/20 phenazopyridine 200 mg tablet 200 mg PO TID PRN pain #15 tabs 11/18/23 (Pyridium) oxybutynin chloride 5 mg 5 - 10 mg (1 - 2 x 5 mg) PO DAILY 01/09/24 tablet,extended release 24 hr #180 tabs Allergies Allergy/AdvReac Type Severity Reaction Status Date / Time amoxicillin Allergy Severe trouble Verified 03/29/24 17:05 breathing and a rash artichoke Allergy Severe ANAPHYLAXIS Verified 03/29/24 17:05 Penicillins Allergy Intermediate HIVES Verified 03/29/24 17:05 sodium hypochlorite solution Allergy Intermediate HIVES/SOB Verified 03/29/24 17:05 (sodium hypochlorite) tramadol Allergy Intermediate vomiting Verified 04/09/24 14:31 adhesive tape Allergy Mild Skin Rash Verified 03/29/24 17:05 ibuprofen AdvReac Severe GI Bleeding Verified 03/29/24 17:05 General Stated Complaint: Abd Prob MIKE: 3 Course Vital Signs Vital signs: Vital Signs Temperature 36.6 C 05/14/24 15:19 Pulse 86 05/14/24 15:19 Respiratory Rate 15 05/14/24 15:19 Blood Pressure 115/76 05/14/24 15:19 Pulse Oximetry 97 05/14/24 15:19 Temperature 36.6 C 05/14/24 15:19 Pulse 86 05/14/24 15:19 Respiratory Rate 15 05/14/24 15:19 Blood Pressure 115/76 05/14/24 15:19 Blood Pressure Position Sitting 05/14/24 15:19 Pulse Oximetry 97 05/14/24 15:19 Oxygen Delivery Method Room Air 05/14/24 15:19 Oxygen Flow Rate 0 05/14/24 15:19 Lab/Test Results Lab/Test Results: Laboratory Tests Range/Units 05/14/24 16:04 WBC (4.4-10.8) 10^3/uL 8.30 RBC (3.93-5.22) 10^6/uL 4.44 Hgb (11.2-15.7) g/dL 13.3 Hct (36.0-46.0) % 38.1 MCV (80-95) fL 86 MCH (27.0-33.0) pg 30.0 MCHC (32.0-36.0) % 34.9 RDW (11.7-14.6) % 12.0 Plt Count (130-400) 10^3/uL 240 MPV (8.0-11.0) fL 10.3 Immature Gran % % 0.2 Neutrophils % % 57.1 Lymphocytes % % 35.8 Monocytes % % 5.8 Eosinophils % % 0.6 Basophils % % 0.5 Nucleated RBC % (0.0-0.3) % 0.0 Absolute Neutrophils (1.2-6.7) 10^3/uL 4.74 Absolute Lymphocytes (1.2-3.4) 10^3/uL 2.97 Absolute Monocytes (0.1-0.8) 10^3/uL 0.48 Absolute Eosinophils (0.0-0.7) 10^3/uL 0.05 Absolute Basophils (0.0-0.2) 10^3/uL 0.04 Sodium (136-145) mmol/L 143 Potassium (3.5-5.1) mmol/L 3.9 Chloride (98-107) mmol/L 106 Carbon Dioxide (21.0-32.0) mmol/L 29.1 Anion Gap (3-11) mmol/L 7.9 BUN (7-18) mg/dL 14 Creatinine (0.55-1.02) mg/dL 0.7 Est GFR (CKD-EPI 2020) (mL/min/1.73m2) 110.67 Glucose (74-106) mg/dL 80 Calcium (8.5-10.1) mg/dL 9.3 Magnesium (1.8-2.4) mg/dL 1.7 L Total Bilirubin (0.2-1.0) mg/dL 0.22 AST (15-37) U/L 25 ALT (14-59) U/L 47 Alkaline Phosphatase (46-116) U/L 76 Troponin I (<or=51) ng/L 6 Total Protein (6.4-8.2) g/dL 7.5 Albumin (3.4-5.0) g/dL 3.9 Lipase (16-77) U/L 25 Medical Decision Making Quality:SDOH Health Related Social Needs: No Data to Display PFSH All Active Problems (Updated 05/14/24 @ 19:18 by Hillary Galloway MD) Nausea and vomiting in adult (Acute) Disorder of bone (Acute) Fatigue (Acute) Intestinal anastomosis present (Acute) Post traumatic stress disorder (Acute) Paresthesia of lower extremity (Acute) Mild intermittent asthma (Acute) Lumbosacral radiculopathy (Acute) Steatosis of liver (Acute) Hx of nutritional disorder (Acute) Bipolar disorder (Acute) Hypercalcemia (Acute) Lack of libido (Acute) Easy bruising (Acute) Osteopenia (Acute) Ankle pain (Acute) COVID-19 (Acute) Right kidney stone (Acute) Right carpal tunnel syndrome (Acute) Psychogenic nonepileptic seizure (Acute) Screening for colon cancer (Acute) Bilateral kidney stones (Acute) Arm paresthesia, right (Acute) Left ankle sprain (Acute) Chest pain (Acute) Gastric bypass status for obesity (Acute) Bipolar 1 disorder (Acute) Seizure disorder (Chronic) Fall (Acute) Hypokalemia (Acute) Sinus bradycardia (Acute) Hematemesis (Acute) Vomiting (Acute) Bradycardia (Acute) Sprain of right elbow (Acute) Contusion of right forearm (Acute) Right wrist sprain (Acute) Cubital tunnel syndrome on right (Acute) Medial epicondylitis, right elbow (Acute) Right lateral epicondylitis (Acute) Migraine headache without aura (Acute) Viral illness (Acute) CHAPARRO (nonalcoholic steatohepatitis) (Acute) Medial epicondylitis, left elbow (Acute) Carpal tunnel syndrome on both sides (Acute) Tubular adenoma of colon (Acute 11/26/16) Numbness of left hand (Acute 07/04/17) Migraine (Acute 02/12/14) Elevated lipids (Acute 02/12/14) Diabetes (Acute 02/12/14) diet controlled Anxiety and depression (Acute 02/12/14) Medical History (Updated 05/14/24 @ 19:18 by Hillary Galloway MD) Hx of colonic polyp Dysuria Absence seizure Pt. states she had one 01/04/24, pt. states she was over heated, states she was in the bathtub and her daughter said she was shaking and her eyes rolled back in her head Hypertension Medial epicondylitis of elbow Spinal stenosis Snoring Obesity Family history of attention deficit hyperactivity disorder Macromastia Cubital tunnel syndrome Lumbar disc herniation Depressive disorder Adrenal abnormality Chronic back pain Cervical cancer GERD (gastroesophageal reflux disease) Kidney stone Asthma Diabetes mellitus, type 2 Polycystic ovaries Migraine Obstructive sleep apnea syndrome pt. states she does not have this anymore r/t to gastric bypass Elevated lipids Anxiety and depression Surgical History (Updated 05/14/24 @ 19:18 by Hillary Galloway MD) Hx of tonsillectomy History of lumbar surgery Pt reports lower back disc, rods and screws 5 years ago, 2016' H/O gastric bypass Cubital tunnel syndrome on left (09/14/17) 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 (Date of Surgery: 03/02/18 and 10/02/2019) anterior cruciate ligament reconstruction Ligation of fallopian tube Open Carpal Tunnel release (10/23/12) RIGHT SIDE, left 8.14.14 Vaginal hysterectomy Endoscopic Carpal Tunnel release (01/14/09) 09/16/2010 REPEAT ECTR RIGHT EGD - MAC (11/26/16) Colonoscopy - MAC (02/18/23) 11/26/2016 section twice Family History (Updated 04/09/24 @ 14:47 by Aubree Dinero RN, RN) Maternal Grandfather Hyperlipidemia Hypertension Arthritis Hyperthyroidism Diabetes Mother Hyperlipidemia Hypertension Uterine cancer Hyperthyroidism Diabetes Father , suicide No problems noted. Maternal Grandmother Breast cancer Social History Smoking/Tobacco Use Status: Former Tobacco Use Quit Date: 08/01/05 Smoking risk assessment performed?: Yes Alcohol Intake: never Drug use: Never Substance use type: does not use Household members: spouse and children Housing: apartment Current gender identity: female What is your relationship status?: Panel score (0-1 are the most socially isolated patients): 1 Seatbelt use: always Do you feel safe at home: Yes Do you feel safe in your relationship?: Yes Additional Social history: [employer]
[2024-05-14 18:02] LABS: Troponin I 6 ng/L (<or=51)
[2024-05-14] MEDS: Omnipaque 350 MG/ML 100 ML BTL IJ (18:34)
[2024-05-14] MEDS: Normal Saline - Diluent 50 ML VIAL IJ (18:35)
--- NOTE | 2024-05-14 18:35 | DI.CT_ITS ---
Exam(s) CT ABDOMEN PELVIS W EXAM: CT ABDOMEN PELVIS W CLINICAL HISTORY: N/V/D, hx bypass, eval obstruction. TECHNIQUE: Imaging Protocol: Axial computed tomography images with coronal and sagittal reformatted images were created and reviewed CONTRAST MATERIAL: Intravenous: Omnipaque-350 100cc Oral: None COMPARISON: CT CT ABDOMEN PELVIS W from 02/10/2024 FINDINGS: VISUALIZED LUNG BASES: No nodules nor pleural effusions evident. ABDOMEN: There is again noted evidence of prior bariatric surgery. The [place] excluded stomach and duodenum a re not dilated. There is no evidence of bowel obstruction, free air, nor abscess. LIVER: There is a benign cyst again noted in the most lateral aspect of the left hepatic lobe measuri ng 1 cm, unchanged. No new significant focal hepatic lesions. No dilated intrahepatic ducts. GALLBLADDER/BILIARY: No obvious gallbladder pathology. CBD is not dilated. PANCREAS: No evidence of pancreatic mass nor dilatation of the pancreatic duct. SPLEEN: Spleen is not enlarged. No obvious intrasplenic lesions. Splenic and portal veins are paten t. ADRENALS: There are no significant adrenal masses. KIDNEYS:Single small benign cysts noted again in each kidney. Do not require further workup. No mohinder id renal masses. No calculi. No hydronephrosis nor hydroureter nor obvious abnormality in the urina ry bladder.. ABDOMINAL AORTA: Abdominal aorta is not enlarged. LYMPH NODES:There is no retroperitoneal nor paraaortic adenopathy. ABDOMINAL WALL: No evidence of significant anterior abdominal wall nor inguinal hernia. GI: There is no evidence of bowel obstruction, free air, nor abscess. PELVIS: GI: No evidence of appendicitis.No evidence of sigmoid diverticulitis. LYMPH NODES: There is no intrapelvic nor inguinal adenopathy. REPRODUCTIVE: Uterus surgically absent. There are no abnormal adnexal masses. No free fluid in the pelvis URINARY BLADDER: No calculi nor obvious masses evident OSSEOUS: Posterior fusion hardware again noted in the lower lumbar spine. Donor site right iliac bon e appears stable. Sacroiliac joints unremarkable. IMPRESSION: 1. Compared to prior CT scan of 02/10/2024 there is again noted evidence of prior bariatric surgery. No evidence of bowel obstruction, free air, nor abscess. 2. Also again noted evidence of prior hysterectomy and posterior fusion [id number] Called by myself to ER physician 05/14/2024 at 7:02 p.m. RADIATION DOSE DELIVERED: 316.61mGy.cm Total DLP DATA REPOSITORY: All CT scans at this facility are submitted to the National Radiology Data Registry (NRDR) Dose Index Registry (DIR) with the [employer] ([employer]). RADIATION OPTIMIZATION: All CT scans at this facility use at least one of these dose optimization te chniques: automated exposure control; mA and/or kV adjustment per patient size (includes targeted exa ms where dose is matched to clinical indication); or iterative reconstruction.
== END 2024-05-14 19:33 | disposition home or self-care (01) ==
PROVIDERS: Emergency Provider Emergency Medicine; PCP Nurse Practitioner Family
DX: R11.2 Nausea with vomiting, unspecified (principal); E11.9 Type 2 diabetes mellitus without complications; K75.81 Nonalcoholic steatohepatitis (NASH); F31.9 Bipolar disorder, unspecified; G40.909 Epilepsy, unspecified, not intractable, without status epilepticus; Z98.84 Bariatric surgery status; Z98.1 Arthrodesis status; Z87.891 Personal history of nicotine dependence
CPT/HCPCS: 36415; 80053; 82962; 83690; 93005; 96374; 99285; 74177; 83735; 84484; 85025; 93010; 99284; J2405; J3490

== ENCOUNTER 2024-07-13 00:42 | Emergency (ER) | payer MEDICAID, SELFPAY ==
[2024-07-13 00:45] VITALS: BP 113/41; PULSE 77; RESP 18; TEMP 36.2; O2SAT 100
--- NOTE | 2024-07-13 00:45 | RT.EKG_ITS ---
APPROVED REPORT Exam: Resting ECG Reason for Exam: vomiting Patient Location: E HR:69 bpm ECG Measurements Heart Rate 69 AXIS OR 160 P 36 QRSd 102 QRS 12 QT 400 T 49 QTc 429 Conclusion Sinus rhythm...normal P axis, V-rate 60- [address] segment or T wave abnormalities to suggest occlusive OR
--- NOTE | 2024-07-13 01:01 | ED.GENADUL_ITS ---
Discharge Plan Disposition Patient Disposition: Home Condition: Good Discharge Details Clinical Impression: Anu-Perez tear, Chronic vomiting Primary Care Provider: Deyanira Marcus ED Provider: Sara Roca Home Meds and New Rx's Prescriptions: Continued albuterol sulfate [ProAir HFA] 90 mcg/actuation HFA aerosol inhaler 2 inh inhalation Q6H PRN fluticasone propionate [Flovent HFA] 110 mcg/actuation HFA aerosol inhaler 1 inh inhalation BID biotin 1 mg capsule 1 mg PO DAILY divalproex [Depakote] 250 mg tablet,delayed release (DR/EC) 250 mg PO BID Patient Comments: taking once daily, in am ooqxenqduvch-Jm-ibsz-minerals 18-0.4 mg tablet 1 tab PO DAILY bupropion HCl 300 mg tablet extended release 24 hr 300 mg PO QAM cholecalciferol (vitamin D3) 50 mcg (2,000 unit) capsule 50 mcg PO DAILY lisinopril 5 mg tablet 5 mg PO DAILY trazodone 50 mg tablet 50 mg PO QHS PRN calcium citrate 250 mg calcium tablet 500 mg PO BID cyanocobalamin (vitamin B-12) 1,000 mcg capsule 2,500 mcg PO DAILY ondansetron 4 mg tablet,disintegrating 4 mg PO Q8H sumatriptan succinate 50 mg tablet See Rx Instructions PO .COMPLEX Rx Instructions: take 1 tab at onset of headache; if no relief may repeat 1 tab after at least 2 hrs; max = 4 tabs/24 hr PO ferrous fumarate-vitamin C 132-250 mg tablet 1 tab PO .3x week oxybutynin chloride 5 mg tablet extended release 24hr 5 - 10 mg PO DAILY Qty: 180 1RF pantoprazole 40 mg Tablet,Delayed Release (Dr/Ec) 40 mg PO DAILY loratadine 10 mg capsule 10 mg PO DAILY PRN amitriptyline 10 mg tablet 10 mg PO DAILY Patient Comments: TAKE ONE TABLET BY MOUTH EVERY NIGHT acetaminophen 500 mg tablet 500 mg PO Q6H PRN (Reason: pain) Qty: 60 0RF Discontinued metoclopramide HCl 10 mg tablet 10 mg PO QAC Rx Instructions: administer 30 minutes before meals Discharge Instructions Instructions: Nausea and Vomiting, Adult ED, GI bleed Additional Instructions: Call your primary care doctor in the morning to schedule an appointment to be seen within the next 48 hours to followup on your visit today. Continue to take your zofran at home as prescribed. Do not take more doses than you are supposed to. Return to the emergency department for new or worsening symptoms, including if you have any more blood in your vomit more than just small streaks of blood, if the amount of blood increases, if you feel lightheaded or pass out, if you can't keep down fluids, if you develop upper abdominal pain, or if you have any other concerns. Stand Alone Forms: Work Release Referrals: Deyanira Marcus [Primary Care Provider] - [facility] General Mode of arrival: ambulatory . Date/Time Provider Initiated Documentation: 07/13/24 00:46 . Limitations to Documentation: no limitations . Information obtained by: patient . HPI Narrative: 44yo F with hx seizures, migraines, asthma, chronic vomiting, and gastric bypass surgery 5 years ago, presenting for blood-streaked emesis. She reports that she has vomited 4-5 times a day since her surgery 5 years ago and no cause for her chronic vomiting has been identified. She takes zofran at home which usually helps. Tonight she ate some chicken soup and then vomited much more forcefully than usual, almost projectile. She noted that there were pink steaks in her vomit. She then vomited two more times, each time with some pink/frothy material. No clots, no large amount of bright red blood. No new abdominal pain (she does have some lower abdominal pain chronically which is unchanged today). No upper abdominal pain. No history of peptic ulcer disease or cirrhosis. No fevers, chills, rash, dysuria, hematuria, numbness, tingling, weakness, headache, or other concerns. Otherwise in her usual state of health. Related Data Home Medications ?Medication ?Instructions ?Recorded ?Confirmed pantoprazole 40 mg tablet,delayed 40 mg PO DAILY 05/11/19 07/13/24 release acetaminophen 500 mg tablet 500 mg PO Q6H PRN pain #60 tabs 05/28/20 07/13/24 loratadine 10 mg capsule 10 mg PO DAILY PRN 01/21/21 07/13/24 albuterol sulfate 90 mcg/actuation 2 inh inhalation Q6H PRN 03/23/21 07/13/24 aerosol inhaler (ProAir HFA) fluticasone propionate 110 1 inh inhalation BID 03/23/21 07/13/24 mcg/actuation HFA aerosol inhaler (Flovent HFA) biotin 1 mg capsule 1 mg PO DAILY 10/22/21 07/13/24 divalproex 250 mg tablet,delayed 250 mg PO BID 10/22/21 07/13/24 release (Depakote) uyjitkgemwbx-Vw-zxwe-minerals 18 1 tab PO DAILY 10/22/21 07/13/24 mg-0.4 mg tablet bupropion HCl 300 mg 24 hr tablet, 300 mg PO QAM 01/20/23 07/13/24 extended release cholecalciferol (vitamin D3) 50 50 mcg PO DAILY 01/20/23 07/13/24 mcg (2,000 unit) capsule lisinopril 5 mg tablet 5 mg PO DAILY 01/20/23 07/13/24 trazodone 50 mg tablet 50 mg PO QHS PRN 01/20/23 07/13/24 calcium citrate 500 mg PO BID 04/09/24 07/13/24 cyanocobalamin (vitamin B-12) 2,500 mcg PO DAILY 04/09/24 07/13/24 1,000 mcg capsule ferrous fumarate-vitamin C 132 1 tab PO .3x week 04/09/24 07/13/24 mg-250 mg tablet ondansetron 4 mg disintegrating 4 mg PO Q8H 04/09/24 07/13/24 tablet sumatriptan succinate 50 mg tablet See Rx Instructions PO .COMPLEX 04/09/24 07/13/24 oxybutynin chloride 5 mg 5 - 10 mg (1 - 2 x 5 mg) PO DAILY 07/02/24 07/13/24 tablet,extended release 24 hr #180 tabs amitriptyline 10 mg tablet 10 mg PO DAILY 07/13/24 07/13/24 Previous Rx's ?Medication ?Instructions ?Recorded acetaminophen 500 mg tablet 500 mg PO Q6H PRN pain #60 tabs 05/28/20 oxybutynin chloride 5 mg 5 - 10 mg (1 - 2 x 5 mg) PO DAILY 07/02/24 tablet,extended release 24 hr #180 tabs Allergies Allergy/AdvReac Type Severity Reaction Status Date / Time amoxicillin Allergy Severe trouble Verified 07/13/24 00:48 breathing and a rash artichoke Allergy Severe ANAPHYLAXIS Verified 07/13/24 00:48 Penicillins Allergy Intermediate HIVES Verified 07/13/24 00:48 sodium hypochlorite solution Allergy Intermediate HIVES/SOB Verified 07/13/24 00:48 (sodium hypochlorite) tramadol Allergy Intermediate vomiting Verified 07/13/24 00:48 adhesive tape Allergy Mild Skin Rash Verified 07/13/24 00:48 ibuprofen AdvReac Severe GI Bleeding Verified 07/13/24 00:48 General Stated Complaint: Nausea/Vomit/Diar MIKE: 3 Review of Systems Narrative: see HPI Exam Narrative Exam Narrative: General: Alert, well appearing, well nourished, in no acute distress. Head: Normocephalic, atraumatic Neck: Trachea midline, ?Neck supple. ENT: ?MMM.? No oropharygeal lesions or exudate. Cardiac: ?RRR, no murmurs appreciated Resp: No respiratory distress. CTAB. Abd: ?Soft, non-distended, nontender : ?No suprapubic tenderness. No CVA tenderness. Extremities: ?No deformities.? No peripheral edema. Neurologic: GCS 15. ? Moves all extremities freely against gravity Course Vital Signs Vital signs: Vital Signs Temperature 36.2 C L 07/13/24 00:45 Pulse 77 07/13/24 00:45 Respiratory Rate 18 07/13/24 00:45 Blood Pressure 113/41 L 07/13/24 00:45 Pulse Oximetry 100 07/13/24 00:45 Temperature 36.2 C L 07/13/24 00:45 Temperature Source Temporal Artery Scan 07/13/24 00:45 Pulse 77 07/13/24 00:45 Respiratory Rate 18 07/13/24 00:45 Respiratory Effort Normal, Non-Labored 07/13/24 00:48 Blood Pressure 113/41 L 07/13/24 00:45 Blood Pressure Position Sitting 07/13/24 00:45 Pulse Oximetry 100 07/13/24 00:45 Oxygen Delivery Method Room Air 07/13/24 00:45 Oxygen Flow Rate 0 07/13/24 00:45 Pain Level 6 07/13/24 00:45 Medical Decision Making 44yo F with hx seizures, migraines, asthma, chronic vomiting, and gastric bypass surgery 5 years ago, presenting for blood-streaked emesis. For the past 5 years vomits 4-5 times a day; takes zofran at home which helps. Today vomited much more forcefully than usual and noted streaks of blood and frothy pink material in her emesis. No large amount of bright red blood, no coffee ground emesis. Otherwise in her usual state of health. Vital signs reassuring on arrival, benign physical exam with non-tender abdomen. No history of peptic ulcers or cirrhosis, no upper abdominal pain, systemically well. Unlikely variceal bleed or bleeding ulcer. Description most suggestive of Anu-Perze tear; would not get CT scan or urgent/emergent endoscopy at this time. -EKG on arrival SR, appropriate intervals, no ST segment or T wave abnormalities to suggest occlusive NC. Will give dose of IV zofran here while awaiting results of workup. -Labs reviewed as below, CBC reassuring with no leukocytosis or anemia, CMP and Mg normal with no electrolyte abnormalities, UA not infected, not . PO challenged and tolerated well. No vomiting while in the ED. Repeat vital signs remain reassuring. She requests discharge home which is reasonable with close PCP followup and strict return precautions. The importance of returning immediately for worsening symptoms was stressed. Discharged home; discharge instructions and return precautions were reviewed with patient who verbalized un derstanding. All questions were answered and she is in full agreement with the plan. Lab Data Lab results reviewed: Yes I reviewed the patient's lab results. Labs: Laboratory Tests Range/Units 07/13/24 07/13/24 00:52 01:13 WBC (4.4-10.8) 10^3/uL 10.69 RBC (3.93-5.22) 10^6/uL 4.56 Hgb (11.2-15.7) g/dL 13.7 Hct (36.0-46.0) % 40.6 MCV (80-95) fL 89 MCH (27.0-33.0) pg 30.0 MCHC (32.0-36.0) % 33.7 RDW (11.7-14.6) % 11.7 Plt Count (130-400) 10^3/uL 271 MPV (8.0-11.0) fL 10.3 Immature Gran % % 0.2 Neutrophils % % 50.1 Lymphocytes % % 41.1 Monocytes % % 7.3 Eosinophils % % 0.7 Basophils % % 0.6 Nucleated RBC % (0.0-0.3) % 0.0 Absolute Neutrophils (1.2-6.7) 10^3/uL 5.37 Absolute Lymphocytes (1.2-3.4) 10^3/uL 4.39 H Absolute Monocytes (0.1-0.8) 10^3/uL 0.78 Absolute Eosinophils (0.0-0.7) 10^3/uL 0.07 Absolute Basophils (0.0-0.2) 10^3/uL 0.06 Sodium (136-145) mmol/L 142 Potassium (3.5-5.1) mmol/L 4.2 Chloride (98-107) mmol/L 105 Carbon Dioxide (21.0-32.0) mmol/L 29.2 Anion Gap (3-11) mmol/L 7.8 BUN (7-18) mg/dL 10 Creatinine (0.55-1.02) mg/dL 0.8 Est GFR (CKD-EPI 2020) (mL/min/1.73m2) 94.28 Glucose (74-106) mg/dL 81 Calcium (8.5-10.1) mg/dL 9.5 Magnesium (1.8-2.4) mg/dL 1.8 Total Bilirubin (0.2-1.0) mg/dL 0.33 AST (15-37) U/L 19 ALT (14-59) U/L 38 Alkaline Phosphatase (46-116) U/L 84 Total Protein (6.4-8.2) g/dL 7.8 Albumin (3.4-5.0) g/dL 4.1 Serum HCG, Qual Negative Urine Color (Yellow) Yellow Urine Clarity (Clear) Clear Urine pH (5-8) 6.0 Ur Specific [place] (1.005-1.025) >= 1.030 H Urine Protein (Neg-Trace) mg/dL Negative Urine Ketones (Negative) mg/dL Negative Urine Blood (Negative) Negative Urine Nitrite (Negative) Negative Urine Bilirubin (Negative) Negative Urine Urobilinogen (Up to 0.2) mg/dL 0.2 Ur Leukocyte Esterase (Negative) Negative Urine Glucose (Negative) mg/dL Negative Quality:SDOH Health Related Social Needs: No Data to Display PFSH All Active Problems (Updated 07/13/24 @ 02:16 by Sara Roca MD) Chronic vomiting (Acute) Anu-Perez tear (Acute) Disorder of bone (Acute) Fatigue (Acute) Intestinal anastomosis present (Acute) Post traumatic stress disorder (Acute) Paresthesia of lower extremity (Acute) Mild intermittent asthma (Acute) Lumbosacral radiculopathy (Acute) Steatosis of liver (Acute) Hx of nutritional disorder (Acute) Bipolar disorder (Acute) Hypercalcemia (Acute) Lack of libido (Acute) Easy bruising (Acute) Osteopenia (Acute) Ankle pain (Acute) COVID-19 (Acute) Right kidney stone (Acute) Right carpal tunnel syndrome (Acute) Psychogenic nonepileptic seizure (Acute) Screening for colon cancer (Acute) Bilateral kidney stones (Acute) Arm paresthesia, right (Acute) Left ankle sprain (Acute) Chest pain (Acute) Gastric bypass status for obesity (Acute) Bipolar 1 disorder (Acute) Seizure disorder (Chronic) Fall (Acute) Hypokalemia (Acute) Sinus bradycardia (Acute) Hematemesis (Acute) Vomiting (Acute) Bradycardia (Acute) Sprain of right elbow (Acute) Contusion of right forearm (Acute) Right wrist sprain (Acute) Cubital tunnel syndrome on right (Acute) Medial epicondylitis, right elbow (Acute) Right lateral epicondylitis (Acute) Migraine headache without aura (Acute) Viral illness (Acute) CHAPARRO (nonalcoholic steatohepatitis) (Acute) Medial epicondylitis, left elbow (Acute) Carpal tunnel syndrome on both sides (Acute) Tubular adenoma of colon (Acute 11/26/16) Numbness of left hand (Acute 07/04/17) Migraine (Acute 02/12/14) Elevated lipids (Acute 02/12/14) Diabetes (Acute 02/12/14) diet controlled Anxiety and depression (Acute 02/12/14) Medical History (Updated 07/13/24 @ 02:16 by Sara Roca MD) Hx of colonic polyp Dysuria Absence seizure Pt. states she had one 01/04/24, pt. states she was over heated, states she was in the bathtub and her daughter said she was shaking and her eyes rolled back in her head Hypertension Medial epicondylitis of elbow Spinal stenosis Snoring Obesity Family history of attention deficit hyperactivity disorder Macromastia Cubital tunnel syndrome Lumbar disc herniation Depressive disorder Adrenal abnormality Chronic back pain Cervical cancer GERD (gastroesophageal reflux disease) Kidney stone Asthma Diabetes mellitus, type 2 Polycystic ovaries Migraine Obstructive sleep apnea syndrome pt. states she does not have this anymore r/t to gastric bypass Elevated lipids Anxiety and depression Surgical History (Updated 05/14/24 @ 19:18 by Hillary Galloway MD) Hx of tonsillectomy History of lumbar surgery Pt reports lower back disc, rods and screws 5 years ago, 2016' H/O gastric bypass Cubital tunnel syndrome on left (09/14/17) 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 (Date of Surgery: 03/02/18 and 10/02/2019) anterior cruciate ligament reconstruction Ligation of fallopian tube Open Carpal Tunnel release (10/23/12) RIGHT SIDE, left 8.14.14 Vaginal hysterectomy Endoscopic Carpal Tunnel release (01/14/09) 09/16/2010 REPEAT ECTR RIGHT EGD - MAC (11/26/16) Colonoscopy - MAC (02/18/23) 11/26/2016 section twice Family History (Updated 04/09/24 @ 14:47 by Aubree Dinero RN, RN) Maternal Grandfather Hyperlipidemia Hypertension Arthritis Hyperthyroidism Diabetes Mother Hyperlipidemia Hypertension Uterine cancer Hyperthyroidism Diabetes Father , suicide No problems noted. Maternal Grandmother Breast cancer Social History Smoking/Tobacco Use Status: Former Tobacco Use Quit Date: 08/01/05 Smoking risk assessment performed?: Yes Alcohol Intake: never Drug use: Never Substance use type: does not use Household members: spouse and children Housing: apartment Current gender identity: female What is your relationship status?: Panel score (0-1 are the most socially isolated patients): 1 Seatbelt use: always Do you feel safe at home: Yes Do you feel safe in your relationship?: Yes Additional Social history: [employer]
[2024-07-13 01:05] LABS: Abs Immature Grans 0.02 10^3/uL (0.0-0.06); Absolute Basophil Count 0.06 10^3/uL (0.0-0.2); Absolute Eosinophil Count 0.07 10^3/uL (0.0-0.7); Absolute Lymphocyte Count 4.39 10^3/uL (1.2-3.4); Absolute Monocyte Count 0.78 10^3/uL (0.1-0.8); Absolute Neutrophil Count 5.37 10^3/uL (1.2-6.7); Basophils % 0.6 %; Eosinophils % 0.7 %; HCT 40.6 % (36.0-46.0); HGB 13.7 g/dL (11.2-15.7); Immature Grans % 0.2 %; Lymphocytes % 41.1 %; MCHC 33.7 % (32.0-36.0); MCV 89 fL (80-95); MPV 10.3 fL (8.0-11.0); Monocytes % 7.3 %; Neutrophils % 50.1 %; Platelet Count 271 10^3/uL (130-400); RBC 4.56 10^6/uL (3.93-5.22); RDW 11.7 % (11.7-14.6); RDW-SD 37.5 fL; WBC 10.69 10^3/uL (4.4-10.8)
[2024-07-13] MEDS: Pantoprazole 40 MG VIAL IVP (01:07)
[2024-07-13] MEDS: Ondansetron 4 MG/2 ML VIAL IVP (01:16)
[2024-07-13 01:17] LABS: HCG Qual (Serum) Negative
[2024-07-13 01:19] LABS: Bilirubin Negative (Negative); Blood Negative (Negative); Clarity Clear (Clear); Glucose Negative (Negative); Ketones Negative (Negative); Leukocyte Esterase Negative (Negative); Nitrite Negative (Negative); Specific Gravity >= 1.030 (1.005-1.025); Urobilinogen 0.2 mg/dL (Up to 0.2)
[2024-07-13 01:21] LABS: ALT 38 U/L (14-59); AST 19 U/L (15-37); Albumin 4.1 g/dL (3.4-5.0); Alkaline Phosphatase 84 U/L (46-116); Anion Gap 7.8 mmol/L (3-11); BUN 10 mg/dL (7-18); Bilirubin, Total 0.33 mg/dL (0.2-1.0); CO2 29.2 mmol/L (21.0-32.0); CREATININE 0.8 mg/dL (0.55-1.02); Calcium 9.5 mg/dL (8.5-10.1); Chloride 105 mmol/L (98-107); Estimated GFR 94.28 (mL/min/1.73m2); Glucose 81 mg/dL (74-106); Magnesium 1.8 mg/dL (1.8-2.4); Potassium 4.2 mmol/L (3.5-5.1); Sodium 142 mmol/L (136-145); Total Protein 7.8 g/dL (6.4-8.2)
[2024-07-13 02:13] VITALS: BP 110/48; PULSE 63; RESP 16; O2SAT 98
== END 2024-07-13 02:18 | disposition home or self-care (01) ==
PROVIDERS: Emergency Provider Student in an Organized Health Care Education/Training Program; PCP Nurse Practitioner Family
DX: R11.11 Vomiting without nausea (principal); R10.30 Lower abdominal pain, unspecified; K22.6 Gastro-esophageal laceration-hemorrhage syndrome; Z98.84 Bariatric surgery status
CPT/HCPCS: 36415; 80053; 81025; 93005; 96374; 96375; 99284; 81003; 83735; 84703; 85025; 93010; J2405; J2470

== ENCOUNTER 2024-08-30 08:43 | Emergency (ER) | payer MEDICAID, SELFPAY ==
[2024-08-30 08:49] VITALS: BP 111/62; PULSE 64; RESP 16; TEMP 36.4; O2SAT 99
--- NOTE | 2024-08-30 09:00 | DI.RAD_ITS ---
Exam(s) XR HAND LT COMPLETE EXAM: XR HAND LT COMPLETE CLINICAL HISTORY: Middle finger swelling. TECHNIQUE: 2D digital imaging was performed of the left hand. Three views were obtained. AP, later al and oblique views were obtained. COMPARISON: CR LEFT WRIST COMPLETE from 08/19/2014 FINDINGS: BONES: No acute fracture is present. No bony destructive lesion is seen. JOINTS: No dislocation present. SOFT TISSUE: There is soft tissue swelling of the left middle finger. No radiopaque foreign body or soft tissue gas is present. IMPRESSION: 1. No acute fracture or dislocation. 2. Soft tissue swelling of the left middle finger. No soft tissue gas or radiopaque foreign body is identified. DATA REPOSITORY: RADIATION DOSE DELIVERED:
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
[2024-08-30] MEDS: Acetaminophen 500 MG TAB PO (09:15)
== END 2024-08-30 10:02 | disposition home or self-care (01) ==
PROVIDERS: Emergency Provider Registered Nurse Emergency; PCP Nurse Practitioner Family
DX: S69.82XA Other specified injuries of left wrist, hand and finger(s), initial encounter (principal); I10 Essential (primary) hypertension; E11.9 Type 2 diabetes mellitus without complications; Z79.85 Long-term (current) use of injectable non-insulin antidiabetic drugs; Z98.84 Bariatric surgery status; W22.8XXA Striking against or struck by other objects, initial encounter; Y93.E9 Activity, other interior property and clothing maintenance; Y92.018 Other place in single-family (private) house as the place of occurrence of the external cause
CPT/HCPCS: 99283; 73130

== ENCOUNTER 2024-09-21 22:50 | Emergency (ER) | payer MEDICAID, SELFPAY ==
[2024-09-21 22:54] VITALS: BP 119/56; PULSE 83; RESP 17; TEMP 36.1; O2SAT 100
--- NOTE | 2024-09-21 23:00 | RT.EKG_ITS ---
APPROVED REPORT Exam: Resting ECG Reason for Exam: dizziness Patient Location: E HR:79 bpm ECG Measurements Heart Rate 79 AXIS WI 152 P 64 QRSd 116 QRS 8 QT 396 T 29 QTc 454 Conclusion Sinus rhythm, rate 79 No interval abnormalities No STEMI Compared to priors, no significant changes
[2024-09-21 23:01] VITALS: BP 119/53; BP 124/51; BP 138/63; PULSE 82; PULSE 83; PULSE 91
--- NOTE | 2024-09-21 23:15 | DI.RAD_ITS ---
Exam(s) XR CHEST 2V PA LATERAL EXAM: XR CHEST 2V PA LATERAL CLINICAL HISTORY: Chest pain TECHNIQUE: 2D digital imaging was performed of the chest. Two images were obtained. PA and lateral views were obtained. COMPARISON: CR XR CHEST 2V PA LATERAL from 12/17/[address] ABDOMEN PELVIS W from 05/14/2024 FINDINGS: MEDIASTINUM: Normal. HEART: Normal. PULMONARY VASCULATURE: Normal. LUNGS: Clear. PLEURAL SPACE: No pleural effusion or pneumothorax. BONE:Within normal limits for the patient's age. OTHER FINDINGS:Normal. IMPRESSION: No acute pulmonary findings. DATA REPOSITORY: RADIATION DOSE DELIVERED:
--- NOTE | 2024-09-21 23:24 | ED.GENADUL_ITS ---
Discharge Plan Disposition Patient Disposition: Home Condition: Stable Discharge Details Chief Complaint: Dizzy/Sync Clinical Impression: Chest pain, Mild intermittent asthma, Diabetes, CHAPARRO (nonalcoholic steatohepatitis), Vomiting, Hypokalemia, Seizure disorder, Bipolar 1 disorder, Gastric bypass status for obesity, Intermittent lightheadedness Primary Care Provider: Deyanira Marcus ED Provider: Hillary Galloway Home Meds and New Rx's Prescriptions: No Action sumatriptan succinate 100 mg tablet See Rx Instructions PO .COMPLEX Qty: 9 5RF Rx Instructions: take 1 tab at onset of headache; if no relief, may repeat 1 tab after at least 2 hrs; max = 2 tabs/24 hrs PO oxybutynin chloride 5 mg tablet extended release 24hr 15 mg PO DAILY Qty: 240 1RF Rx Instructions: Take 1-3 tabs/day for bladder spams albuterol sulfate [ProAir HFA] 90 mcg/actuation HFA aerosol inhaler 2 inh inhalation Q6H PRN fluticasone propionate [Flovent HFA] 110 mcg/actuation HFA aerosol inhaler 1 inh inhalation BID biotin 1 mg capsule 1 mg PO DAILY divalproex [Depakote] 250 mg tablet,delayed release (DR/EC) 250 mg PO BID Patient Comments: taking once daily, in am vxiijiijlwes-Tn-auvd-minerals 18-0.4 mg tablet 1 tab PO DAILY bupropion HCl 300 mg tablet extended release 24 hr 300 mg PO QAM cholecalciferol (vitamin D3) 50 mcg (2,000 unit) capsule 50 mcg PO DAILY lisinopril 5 mg tablet 5 mg PO DAILY trazodone 50 mg tablet 50 mg PO QHS PRN calcium citrate 250 mg calcium tablet 500 mg PO BID cyanocobalamin (vitamin B-12) 1,000 mcg capsule 2,500 mcg PO DAILY ondansetron 4 mg tablet,disintegrating 4 mg PO Q8H ferrous fumarate-vitamin C 132-250 mg tablet 1 tab PO .3x week Emgality Pen 120 mg/mL pen injector 120 mg subcut QMONTH Qty: 3 3RF pantoprazole 40 mg Tablet,Delayed Release (Dr/Ec) 40 mg PO DAILY loratadine 10 mg capsule 10 mg PO DAILY PRN amitriptyline 10 mg tablet 10 mg PO DAILY Patient Comments: TAKE ONE TABLET BY MOUTH EVERY NIGHT acetaminophen 500 mg tablet 500 mg PO Q6H PRN (Reason: pain) Qty: 60 0RF Discharge Instructions Instructions: Dizziness, Adult ED Additional Instructions: You were seen in the emergency department today for evaluation of lightheadedness, nausea with vomiting and chest pain. In our department you do full physical examination performed, had reassuring vital signs and normal laboratory studies. Your potassium and magnesium on the low side of normal, which has been an issue for you in the past and is likely due to the diet restrictions associated with your gastric bypass. Please continue to take all of your supplements as prescribed, and your outpatient providers may decide to recheck these levels at a later time. You had no evidence of damage to your heart, and had a chest x-ray that did not show any sign of pneumonia or other abnormality which might explain your chest pain. You received medications for pain and nausea as well as fluids for rehydration. Please follow-up with your primary care provider in the next few days to discuss this visit and any symptoms that change, worsen, or persist. Thank you for allowing us to be part of your care. Stand Alone Forms: Work Release HPI General Mode of arrival: ambulatory . Date/Time Provider Initiated Documentation: 09/21/24 22:54 . Limitations to Documentation: no limitations . Information obtained by: patient, family and old records reviewed . HPI Narrative: HPI: This is a 44-year-old female patient with a past medical history significant for asthma, bipolar, gastric bypass, and diabetes who is presenting for evaluation of dizziness, nausea with vomiting, and chest tightness. The patient reports that she has been dealing with some nausea and vomiting in the setting of her bypass, and has been working with her surgeon at [facility] and is currently following a stage I diet, which she states have been typically going well. For the last few days she has had increasing responsibilities at work, and has needed to move from squatting to standing quite frequently. She reports that she feels lightheaded and dizzy, and sustained an episode where she fell today, no loss of consciousness or reported injuries. She states that she had several episodes of nonbloody, nonbilious emesis, and believes that she has been throwing up her prescribed Zofran. She was prompted to seek care today because she developed a sensation of chest tightness, which she states is worse with palpation, and feels like she is at the end of a very deep breath. She reports that this pain has not changed with position, movement, or respirations, she has not had any wheezing or shortness of breath, and this pain is located in the center of her chest that does not radiate. Exam: Gen: Awake and alert, in no apparent distress HEENT: Non-icteric sclera Neck: Supple Lungs: No apparent respiratory distress, normal respiratory effort. Lung sounds clear and equal bilaterally without wheezes, rhonchi, rales CV: Appears well perfused, heart with regular rate and rhythm, strong distal pulses, chest wall is tender to palpation in the sternal region with no overlying skin changes, crepitus, or deformity. Abdomen: Non-distended, soft, nontender without rigidity, rebound, or guarding. MSK: Moves 4 extremities without apparent limitation in ROM. No peripheral edema, no unilateral calf swelling or tenderness Skin: Visualized skin without rashes, cyanosis. Neuro: Normal Gait, no obvious focal deficits or facial asymmetry. Speaks in full, clear sentences. Psych: Appropriate for situation. MDM: This is a 44-year-old female patient presenting for evaluation of dizziness/lightheadedness, vomiting, and chest tightness. My differential includes but is not limited to dehydration, metabolic and electrolyte derangement, kidney injury, orthostasis, vasovagal syndrome, certainly considered pulmonary abnormalities including pneumonia, bronchitis, no wheezing to suggest reactive airway disease exacerbation. I see no evidence of fluid overload on physical examination, and the patient meets PERC criteria for rule out of pulmonary embolism. Considered ACS including STEMI, NSTEMI, unstable angina, no improvement in pain with sitting upright or evidence on her EKG for pericarditis/myocarditis, patient reports that she has been testing at home and has been COVID and influenza negative, and has no other upper respiratory symptoms or fever to suggest URI. The patient is status post hysterectomy, and has a benign abdominal examination, and I have a lower concern for intra- abdominal pathology. We obtained an EKG, which I reviewed and compared to her priors, showing a sinus rhythm with no evidence of ischemia, interval abnormality or ectopy. Orthostatic vital signs were obtained and were negative, and the patient was not significantly symptomatic during this testing. Fingerstick blood glucose 177 which is within the range of normal for this patient. We will obtain laboratory studies to include CBC, CMP, magnesium, troponin, lipase, and urinalysis to evaluate for UTI. I will obtain a chest x-ray and provide the patient with a dose of Zofran, Tylenol, and a liter of IV fluids. I did offer viral testing to this patient to his declined. ED Course: I independently interpreted the laboratory studies, which show no significant leukocytosis, anemia, or thrombocytopenia. The chemistry panel is without evidence of significant electrolyte abnormality, kidney dysfunction, or liver injury, though the patient does have borderline low magnesium and potassium, likely in the setting of her restrictive diet for her gastric bypass. Lipase is low, and troponins were negative x 2 checks without significant delta change. The patient's chest x-ray was independently interpreted by myself and shows no significant abnormalities such as pneumonia to explain her symptoms. On reassessment, the patient has had resolution of her lightheadedness, was able to tolerate some oral intake, and had improvement in her chest pain. She is likely experiencing some symptoms in the setting of her gastric bypass diet, and I am reassured by her workup and reassessment here in the emergency department. She has scheduled follow-up in the outpatient environment and will inform them of the symptoms that she has been experiencing. At this time, the patient has had a full medical evaluation and is safe for discharge to home. They are hemodynamically stable, ambulatory, and tolerating PO. They are understanding of the follow-up plan and return precautions. They left our facility without incident. Hillary Galloway MD Related Data Home Medications ?Medication ?Instructions ?Recorded ?Confirmed pantoprazole 40 mg tablet,delayed 40 mg PO DAILY 05/11/19 09/21/24 release acetaminophen 500 mg tablet 500 mg PO Q6H PRN pain #60 tabs 05/28/20 09/21/24 loratadine 10 mg capsule 10 mg PO DAILY PRN 01/21/21 09/21/24 albuterol sulfate 90 mcg/actuation 2 inh inhalation Q6H PRN 03/23/21 09/21/24 aerosol inhaler (ProAir HFA) fluticasone propionate 110 1 inh inhalation BID 03/23/21 09/21/24 mcg/actuation HFA aerosol inhaler (Flovent HFA) biotin 1 mg capsule 1 mg PO DAILY 10/22/21 09/21/24 divalproex 250 mg tablet,delayed 250 mg PO BID 10/22/21 09/21/24 release (Depakote) lqealmwhfdxj-Qy-rbbd-minerals 18 1 tab PO DAILY 10/22/21 09/21/24 mg-0.4 mg tablet bupropion HCl 300 mg 24 hr tablet, 300 mg PO QAM 01/20/23 09/21/24 extended release cholecalciferol (vitamin D3) 50 50 mcg PO DAILY 01/20/23 09/21/24 mcg (2,000 unit) capsule lisinopril 5 mg tablet 5 mg PO DAILY 01/20/23 09/21/24 trazodone 50 mg tablet 50 mg PO QHS PRN 01/20/23 09/21/24 calcium citrate 500 mg PO BID 04/09/24 09/21/24 cyanocobalamin (vitamin B-12) 2,500 mcg PO DAILY 04/09/24 09/21/24 1,000 mcg capsule ferrous fumarate-vitamin C 132 1 tab PO .3x week 04/09/24 09/21/24 mg-250 mg tablet ondansetron 4 mg disintegrating 4 mg PO Q8H 04/09/24 09/21/24 tablet amitriptyline 10 mg tablet 10 mg PO DAILY 07/13/24 09/21/24 oxybutynin chloride 5 mg 15 mg (3 x 5 mg) PO DAILY #240 tabs 07/31/24 09/21/24 tablet,extended release 24 hr sumatriptan succinate 100 mg tablet See Rx Instructions PO .COMPLEX #9 08/13/24 09/21/24 tabs galcanezumab-gnlm 120 mg/mL 120 mg subcut QMONTH #3 mL 08/29/24 09/21/24 subcutaneous pen injector (Emgality Pen) Previous Rx's ?Medication ?Instructions ?Recorded acetaminophen 500 mg tablet 500 mg PO Q6H PRN pain #60 tabs 05/28/20 oxybutynin chloride 5 mg 15 mg (3 x 5 mg) PO DAILY #240 tabs 07/31/24 tablet,extended release 24 hr sumatriptan succinate 100 mg tablet See Rx Instructions PO .COMPLEX #9 08/13/24 tabs galcanezumab-gnlm 120 mg/mL 120 mg subcut QMONTH #3 mL 08/29/24 subcutaneous pen injector (Emgality Pen) Allergies Allergy/AdvReac Type Severity Reaction Status Date / Time amoxicillin Allergy Severe trouble Verified 09/21/24 22:53 breathing and a rash artichoke Allergy Severe ANAPHYLAXIS Verified 09/21/24 22:53 Penicillins Allergy Intermediate HIVES Verified 09/21/24 22:53 sodium hypochlorite solution Allergy Intermediate HIVES/SOB Verified 09/21/24 22:53 (sodium hypochlorite) tramadol Allergy Intermediate vomiting Verified 09/21/24 22:53 adhesive tape Allergy Mild Skin Rash Verified 09/21/24 22:53 ibuprofen AdvReac Severe GI Bleeding Verified 09/21/24 22:53 General Stated Complaint: Dizzy/Sync MIKE: 3 Course Vital Signs Vital signs: Vital Signs Temperature 36.1 C L 09/21/24 22:54 Pulse 83 09/21/24 22:54 Respiratory Rate 17 09/21/24 22:54 Blood Pressure 119/56 L 09/21/24 22:54 Pulse Oximetry 100 09/21/24 22:54 Temperature 36.1 C L 09/21/24 22:54 Temperature Source Oral 09/21/24 22:54 Pulse 83 09/21/24 23:01 Respiratory Rate 17 09/21/24 22:54 Blood Pressure 124/51 L 09/21/24 23:01 Blood Pressure Position Sitting 09/21/24 22:54 Pulse Oximetry 100 09/21/24 22:54 Oxygen Delivery Method Room Air 09/21/24 22:54 Oxygen Flow Rate 0 09/21/24 22:54 Pain Level 3 09/21/24 22:54 Medical Decision Making Quality:SDOH Health Related Social Needs: Health related social needs material hardship(utilitie s) (Z59.12), problems related to housing/economic circumstances (Z59.89), feeling lonely/isolated (Z60.8) PFSH All Active Problems (Updated 09/22/24 @ 01:07 by Hillary Galloway MD) Intermittent lightheadedness (Acute) Left upper limb pain (Acute) Left upper extremity numbness (Acute) Jammed interphalangeal joint of finger of left hand (Acute) Post concussion syndrome (Acute) Chronic headache (Acute) Disorder of bone (Acute) Fatigue (Acute) Intestinal anastomosis present (Acute) Post traumatic stress disorder (Acute) Paresthesia of lower extremity (Acute) Mild intermittent asthma (Acute) Lumbosacral radiculopathy (Acute) Steatosis of liver (Acute) Hx of nutritional disorder (Acute) Bipolar disorder (Acute) Hypercalcemia (Acute) Lack of libido (Acute) Easy bruising (Acute) Osteopenia (Acute) Ankle pain (Acute) COVID-19 (Acute) Right kidney stone (Acute) Right carpal tunnel syndrome (Acute) Psychogenic nonepileptic seizure (Acute) Screening for colon cancer (Acute) Bilateral kidney stones (Acute) Arm paresthesia, right (Acute) Left ankle sprain (Acute) Chest pain (Acute) Gastric bypass status for obesity (Acute) Bipolar 1 disorder (Acute) Seizure disorder (Chronic) Fall (Acute) Hypokalemia (Acute) Sinus bradycardia (Acute) Hematemesis (Acute) Vomiting (Acute) Bradycardia (Acute) Sprain of right elbow (Acute) Contusion of right forearm (Acute) Right wrist sprain (Acute) Cubital tunnel syndrome on right (Acute) Medial epicondylitis, right elbow (Acute) Right lateral epicondylitis (Acute) Migraine headache without aura (Acute) Viral illness (Acute) CHAPARRO (nonalcoholic steatohepatitis) (Acute) Medial epicondylitis, left elbow (Acute) Carpal tunnel syndrome on both sides (Acute) Tubular adenoma of colon (Acute 11/26/16) Numbness of left hand (Acute 07/04/17) Migraine (Acute 02/12/14) Elevated lipids (Acute 02/12/14) Diabetes (Acute 02/12/14) diet controlled Anxiety and depression (Acute 02/12/14) Medical History Hx of colonic polyp Dysuria Absence seizure Pt. states she had one 01/04/24, pt. states she was over heated, states she was in the bathtub and her daughter said she was shaking and her eyes rolled back in her head Hypertension Medial epicondylitis of elbow Spinal stenosis Snoring Obesity Family history of attention deficit hyperactivity disorder Macromastia Cubital tunnel syndrome Lumbar disc herniation Depressive disorder Adrenal abnormality Chronic back pain Cervical cancer GERD (gastroesophageal reflux disease) Kidney stone Asthma Diabetes mellitus, type 2 Polycystic ovaries Migraine Obstructive sleep apnea syndrome pt. states she does not have this anymore r/t to gastric bypass Elevated lipids Anxiety and depression Surgical History Hx of tonsillectomy History of lumbar surgery Pt reports lower back disc, rods and screws 5 years ago, H/O gastric bypass Cubital tunnel syndrome on left (09/14/17) 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 (Date of Surgery: 03/02/18 and 10/02/2019) anterior cruciate ligament reconstruction Ligation of fallopian tube Open Carpal Tunnel release (10/23/12) RIGHT SIDE, left 8.14.14 Vaginal hysterectomy Endoscopic Carpal Tunnel release (01/14/09) 09/16/2010 REPEAT ECTR RIGHT EGD - MAC (11/26/16) Colonoscopy - MAC (02/18/23) 11/26/2016 section twice Family History Maternal Grandfather Hyperlipidemia Hypertension Arthritis Hyperthyroidism Diabetes Mother Hyperlipidemia Hypertension Uterine cancer Hyperthyroidism Diabetes Father , suicide No problems noted. Maternal Grandmother Breast cancer Social History Smoking/Tobacco Use Status: Former Tobacco Use Quit Date: 08/01/05 Smoking risk assessment performed?: Yes Alcohol Intake: never Drug use: Never Substance use type: does not use Household members: spouse and children Housing: apartment Current gender identity: female What is your relationship status?: Panel score (0-1 are the most socially isolated patients): 1 Seatbelt use: always Do you feel safe at home: Yes Do you feel safe in your relationship?: Yes Additional Social history: [employer]
[2024-09-21 23:33] LABS: Abs Immature Grans 0.02 10^3/uL (0.0-0.06); Absolute Basophil Count 0.05 10^3/uL (0.0-0.2); Absolute Eosinophil Count 0.08 10^3/uL (0.0-0.7); Absolute Lymphocyte Count 3.66 10^3/uL (1.2-3.4); Absolute Monocyte Count 0.51 10^3/uL (0.1-0.8); Absolute Neutrophil Count 4.36 10^3/uL (1.2-6.7); Basophils % 0.6 %; Eosinophils % 0.9 %; HCT 36.7 % (36.0-46.0); HGB 12.6 g/dL (11.2-15.7); Immature Grans % 0.2 %; Lymphocytes % 42.2 %; MCH 30.2 pg (27.0-33.0); MCHC 34.3 % (32.0-36.0); MCV 88 fL (80-95); MPV 10.5 fL (8.0-11.0); Monocytes % 5.9 %; Neutrophils % 50.2 %; Platelet Count 250 10^3/uL (130-400); RBC 4.17 10^6/uL (3.93-5.22); RDW 11.7 % (11.7-14.6); RDW-SD 37.6 fL; WBC 8.68 10^3/uL (4.4-10.8)
[2024-09-21] MEDS: Ondansetron 4 MG/2 ML VIAL IVP (23:37)
[2024-09-21] MEDS: Lactated Ringers 1,000 ML 1000 ML IV (23:37)
[2024-09-21] MEDS: ACETAMINOPHEN 1,000 MG/100 ML BAG 400 MG IVPB (23:41)
[2024-09-21 23:49] VITALS: PULSE 66; PULSE 69; RESP 16; O2SAT 99
[2024-09-21 23:50] VITALS: PULSE 72; RESP 16; O2SAT 98
[2024-09-21 23:54] LABS: Bilirubin Negative (Negative); Blood Negative (Negative); Clarity Clear (Clear); Glucose Negative (Negative); Ketones Negative (Negative); Leukocyte Esterase Negative (Negative); Nitrite Negative (Negative); Specific Gravity >= 1.030 (1.005-1.025); Urobilinogen 0.2 mg/dL (Up to 0.2); pH 6.5 (5-8)
[2024-09-21 23:54] LABS: ALT 41 U/L (14-59); AST 22 U/L (15-37); Alkaline Phosphatase 84 U/L (46-116); Anion Gap 7.7 mmol/L (3-11); BUN 12 mg/dL (7-18); Bilirubin, Total 0.41 mg/dL (0.2-1.0); CO2 28.3 mmol/L (21.0-32.0); Calcium 9.6 mg/dL (8.5-10.1); Chloride 105 mmol/L (98-107); Estimated GFR 72.13 (mL/min/1.73m2); Glucose 126 mg/dL (74-106); Lipase 19 U/L (<78); Magnesium 1.7 mg/dL (1.8-2.4); Potassium 3.4 mmol/L (3.5-5.1); Sodium 141 mmol/L (136-145); Total Protein 7.5 g/dL (6.4-8.2)
[2024-09-21 23:55] LABS: Troponin I < 4 ng/L (<or=51)
[2024-09-22] VITALS (13 sets, daily range): BP systolic 102–108; BP diastolic 45–70; PULSE 50–69; RESP 7–22; O2SAT 98–100
[2024-09-22 00:52] LABS: Troponin I 5 ng/L (<or=51)
--- NOTE | 2024-09-22 00:56 | DI.VRAD_ITS ---
PROCEDURE INFORMATION: Exam: XR Chest Exam date and time: 09/21/2024 11:36 PM Age: 44 years old Clinical indication: Sternal or substernal pain; Chest pain for 2 days TECHNIQUE: Imaging protocol: Radiologic exam of the chest. Views: 2 views. COMPARISON: CR XR CHEST 2V PA LATERAL 12/17/2021 12:32 PM FINDINGS: Lungs: Unremarkable. No consolidation. Pleural spaces: Unremarkable. No pleural effusion. No pneumothorax. Heart/Mediastinum: Unremarkable. No cardiomegaly. Bones/joints: Unremarkable. IMPRESSION: No acute findings. Dictated and Authenticated by: Carlos Skelton MD. Orderin [facility] Wiley Thornton MD
== END 2024-09-22 01:25 | disposition home or self-care (01) ==
PROVIDERS: Emergency Provider Emergency Medicine; PCP Nurse Practitioner Family
DX: R07.9 Chest pain, unspecified (principal); R11.2 Nausea with vomiting, unspecified; E87.6 Hypokalemia; I10 Essential (primary) hypertension; E11.9 Type 2 diabetes mellitus without complications; J45.20 Mild intermittent asthma, uncomplicated; K75.81 Nonalcoholic steatohepatitis (NASH); G40.909 Epilepsy, unspecified, not intractable, without status epilepticus; Z98.84 Bariatric surgery status; Z79.84 Long term (current) use of oral hypoglycemic drugs; Z79.899 Other long term (current) drug therapy; Z87.891 Personal history of nicotine dependence
CPT/HCPCS: 36415; 80053; 82962; 83690; 93005; 96361; 96365; 96375; 99285; 71046; 81003; 83735; 84484; 85025; 93010; J0131; J2405

== ENCOUNTER 2024-10-15 01:31 | Outpatient (CLI) | payer MEDICAID, SELFPAY ==
--- NOTE | 2024-10-15 06:30 | DI.CT_ITS ---
Exam(s) CT ABDOMEN PELVIS WO EXAM: CT ABDOMEN PELVIS WO CLINICAL HISTORY: ? recurrent stones,flank pain, h/o bilat kidney stones,r10.9. TECHNIQUE: Imaging Protocol: Axial computed tomography images with coronal and sagittal reformatted images were created and reviewed. Oral: / no COMPARISON: CT CT ABDOMEN PELVIS W from 05/14/2024 FINDINGS: Lung Bases: No acute findings. Liver: Normal density. No suspicious mass. Gallbladder and biliary tract: No radiodense calculus or biliary dilation. Pancreas: Normal density. No abnormal calcifications or inflammatory process. Spleen: Normal. Kidneys: Normal size, contour and axis. No radiodense stones. No obstructive uropathy. No suspicious masses seen. Adrenal glands: No masses seen. Lymph nodes: Within normal limits. Vasculature: Abdominal aorta non-dilated. Soft tissues: Unremarkable. Bladder: Empty. Unable to be evaluated. Bowel: Suture material at stomach and left upper quadrant small bowel. Increased quantity of stool.. No obstruction or bowel wall thickening. Appendix normal. Peritoneal cavity: No ascites. No focal collection. No mesenteric inflammatory response. Reproductive organs: Unremarkable hysterectomy. Bones: posterior fusion hardware again noted in the lower lumbar spine. IMPRESSION: No acute abnormality in the abdomen or pelvis. No evidence of urinary tract calculi or hydronephrosi s RADIATION DOSE DELIVERED: 432.73mGy.cm Total DLP DATA REPOSITORY: All CT scans at this facility are submitted to the National Radiology Data Registry (NRDR) Dose Index Registry (DIR) with the [employer] (A[employer]). RADIATION OPTIMIZATION: All CT scans at this facility use at least one of these dose optimization te chniques: automated exposure control; mA and/or kV adjustment per patient size (includes targeted exa ms where dose is matched to clinical indication); or iterative reconstruction.
== END 2024-10-15 01:51 ==
LOC: DI 01:31
PROVIDERS: PCP Nurse Practitioner Family; Visit Provider Urology
DX: N20.0 Calculus of kidney (principal); R10.9 Unspecified abdominal pain
CPT/HCPCS: 74176

== ENCOUNTER 2024-10-30 12:32 | Emergency (ER) | payer MEDICAID, SELFPAY ==
[2024-10-30 12:36] VITALS: BP 122/79; PULSE 71; RESP 12; TEMP 36.8; O2SAT 97
--- NOTE | 2024-10-30 13:00 | DI.RAD_ITS ---
Exam(s) XR ANKLE RT COMPLETE EXAM: XR ANKLE RT COMPLETE CLINICAL HISTORY: pain. TECHNIQUE: 2D digital imaging was performed of the right ankle. Three images were obtained. AP, la teral and oblique views were obtained. COMPARISON: CR,XR XR ANKLE RT COMPLETE from 01/01/2024 FINDINGS: BONES: No acute fracture is present. No bony destructive lesion is seen. There is an enthesophyte at the posterior calcaneus. JOINTS: The ankle mortise is normally aligned. SOFT TISSUE: Normal. IMPRESSION: No acute abnormality. DATA REPOSITORY: RADIATION DOSE DELIVERED:
--- NOTE | 2024-10-30 13:00 | DI.RAD_ITS ---
Exam(s) XR FOOT RT COMPLETE EXAM: XR FOOT RT COMPLETE CLINICAL HISTORY: Pain. TECHNIQUE: 2D digital imaging was performed of the right foot. Three images were obtained. AP, obl ique and lateral views were obtained. COMPARISON: No exams were available for comparison FINDINGS: BONES: No acute fracture is present. No bony destructive lesion is seen. There is a bipartite sesamoi d at the head of the 1st metatarsal bone. There is an enthesophyte at the posterior calcaneus. JOINTS: No dislocation present. SOFT TISSUE: Normal. No radiopaque foreign bodies are present. IMPRESSION: No acute abnormalities identified. DATA REPOSITORY: RADIATION DOSE DELIVERED:
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
== END 2024-10-30 15:22 | disposition home or self-care (01) ==
PROVIDERS: Emergency Provider Registered Nurse Emergency; PCP Nurse Practitioner Family
DX: S93.401A Sprain of unspecified ligament of right ankle, initial encounter (principal); I10 Essential (primary) hypertension; E11.9 Type 2 diabetes mellitus without complications; Z98.84 Bariatric surgery status; Z79.84 Long term (current) use of oral hypoglycemic drugs; Z87.891 Personal history of nicotine dependence
CPT/HCPCS: 99283; 73610; 73630

== ENCOUNTER 2024-11-30 11:04 | Outpatient (CLI) | payer MEDICAID, SELFPAY ==
[2024-11-30 10:42] LABS: Abs Immature Grans 0.02 10^3/uL (0.0-0.06); Absolute Basophil Count 0.06 10^3/uL (0.0-0.2); Absolute Eosinophil Count 0.04 10^3/uL (0.0-0.7); Absolute Monocyte Count 0.47 10^3/uL (0.1-0.8); Absolute Neutrophil Count 3.66 10^3/uL (1.2-6.7); Basophils % 0.8 %; Eosinophils % 0.6 %; HCT 41.8 % (36.0-46.0); HGB 14.3 g/dL (11.2-15.7); Immature Grans % 0.3 %; Lymphocytes % 41.4 %; MCH 30.4 pg (27.0-33.0); MCHC 34.2 % (32.0-36.0); MCV 89 fL (80-95); MPV 9.9 fL (8.0-11.0); Monocytes % 6.5 %; Neutrophils % 50.4 %; Platelet Count 269 10^3/uL (130-400); RDW 11.7 % (11.7-14.6); RDW-SD 37.6 fL; WBC 7.25 10^3/uL (4.4-10.8)
[2024-11-30 11:36] LABS: ALT 53 U/L (14-59); AST 29 U/L (15-37); Alkaline Phosphatase 85 U/L (46-116); Anion Gap 8.2 mmol/L (3-11); BUN 18 mg/dL (7-18); Bilirubin, Total 0.4 mg/dL (0.2-1.0); CO2 31.8 mmol/L (21.0-32.0); CREATININE 0.8 mg/dL (0.55-1.02); Calcium 9.9 mg/dL (8.5-10.1); Chloride 103 mmol/L (98-107); Estimated GFR 94.28 (mL/min/1.73m2); Glucose 100 mg/dL (74-106); Magnesium 1.7 mg/dL (1.8-2.4); Potassium 3.8 mmol/L (3.5-5.1); Sodium 143 mmol/L (136-145); TSH (W/Ref FT4) 1.86 uIU/mL (0.36-3.74); Total Protein 7.7 g/dL (6.4-8.2)
== END 2024-11-30 11:05 | disposition home or self-care (01) ==
LOC: LBO 11:05
PROVIDERS: PCP Nurse Practitioner Family; Visit Provider Nurse Practitioner Family
DX: R00.2 Palpitations (principal)
CPT/HCPCS: 36415; 80053; 83735; 84443; 85025

== ENCOUNTER 2024-11-30 15:03 | Outpatient (CLI) | payer MEDICAID, SELFPAY | END 2024-11-30 15:04 | disposition home or self-care (01) | PROVIDERS: PCP Nurse Practitioner Family; Visit Provider Nurse Practitioner Family | DX: R00.2 Palpitations (principal) | CPT/HCPCS: 93246 ==

== ENCOUNTER 2024-12-21 07:08 | Outpatient (CLI) | payer MEDICAID, SELFPAY ==
--- NOTE | 2024-12-21 08:18 | W.CARDEVENT ---
Date of service: 12/21/24 Time of Service: 08:18 Cardiac Event Recorder Referring Provider:: Deyanira Marcus Indications:: Palpitations Cardiac Event Note: This is a cardiac event monitor. Patient was monitored for 12 days and 4 hours. Rhythm throughout was sinus with an average heart rate of 80. Minimum was 42, maximum 147 A total of 8 premature ventricular contractions were recorded There was 55 atrial premature beats There was no atrial fibrillation, no high-grade AV block, no SVT, no pauses greater than 3 seconds. Reported symptoms all corresponded to sinus rhythm
== END 2024-12-21 07:09 | disposition home or self-care (01) ==
LOC: CARDOPNVT 07:08
PROVIDERS: PCP Nurse Practitioner Family; Visit Provider Internal Medicine Cardiovascular Disease
DX: R00.2 Palpitations (principal); I49.3 Ventricular premature depolarization
CPT/HCPCS: 93248

== ENCOUNTER 2025-01-11 15:23 | Emergency (ER) | payer MEDICAID, SELFPAY ==
[2025-01-11 15:26] VITALS: BP 119/79; PULSE 67; RESP 20; TEMP 36.6; O2SAT 97
--- NOTE | 2025-01-11 15:30 | DI.CT_ITS ---
Exam(s) CT ABDOMEN PELVIS W EXAM: CT ABDOMEN PELVIS W CLINICAL HISTORY: flank pain, vomiting, hx gastric bypass. TECHNIQUE: Imaging Protocol: Axial computed tomography images with coronal and sagittal reformatted images were created and reviewed CONTRAST MATERIAL: Intravenous: Omnipaque-350 100cc Oral: None COMPARISON: CT CT ABDOMEN PELVIS WO from 10/15/2024 FINDINGS: VISUALIZED LUNG BASES: No nodules nor pleural effusions evident. ABDOMEN: GI: There is evidence of prior bariatric surgery. The mary's igloo excluded stomach is not dilated. There is minimal prominence of the Robert limb.. Somewhat patulous distal anastomosis. There is no evidence of distal small bowel obstruction. No free air. No ascites nor abscess evident. LIVER: There are no focal hepatic lesions evident. No dilated intrahepatic ducts. GALLBLADDER/BILIARY: No obvious gallbladder pathology. CBD is not dilated. PANCREAS: No evidence of pancreatitis nor dilatation pancreatic duct. No pancreatic masses evident. SPLEEN: Spleen is not enlarged. No obvious intrasplenic lesions. Splenic and portal veins are patent. ADRENALS: There are no significant adrenal masses. KIDNEYS:Small sub cm cysts noted in the inferior pole the right kidney. Is not require further workup. No other focal renal findings. No solid renal masses. No calculi nor hydronephrosis.. ABDOMINAL AORTA: Abdominal aorta is not enlarged. LYMPH NODES:There is no retroperitoneal nor paraaortic adenopathy. ABDOMINAL WALL: No evidence of significant anterior abdominal wall nor inguinal hernia. PELVIS: GI: No evidence of appendicitis.No evidence of sigmoid diverticulitis. LYMPH NODES: There is no intrapelvic nor inguinal adenopathy. REPRODUCTIVE: Uterus is surgically absent. There are no abnormal adnexal masses and no free fluid in the pelvis. URINARY BLADDER: No calculi nor obvious masses evident OSSEOUS: There posterior fusion rods in the lower lumbar spine secured by intra pedicular screws. Also laminectomies. No abnormal fluid collections nor paraspinal masses. Psoas muscles appear unremarkable and symmetrical. IMPRESSION: 1. Study limited by lack of oral contrast in a patient who has had prior bariatric surgery. However, there is no evidence of obvious bowel obstruction, free air, nor abscess. There is mild dilatation of the Robert limb 2. Previous hysterectomy. No abnormal adnexal findings and no free fluid in the pelvis. 3. Posterior fusion surgery in the lower lumbar spine L5-S1 levels. No abnormal fluid collections. 4. Report discussed with ER provider 01/11/2025 at 4:53 p.m. RADIATION DOSE DELIVERED: 406.26mGy.cm Total DLP DATA REPOSITORY: All CT scans at this facility are submitted to the National Radiology Data Registry (NRDR) Dose Index Registry (DIR) with the [employer] (ACR). RADIATION OPTIMIZATION: All CT scans at this facility use at least one of these dose optimization techniques: automated exposure control; mA and/or kV adjustment per patient size (includes targeted exams where dose is matched to clinical indication); or iterative reconstruction.
[2025-01-11 16:03] LABS: Bilirubin Negative (Negative); Blood Negative (Negative); Clarity Sl Cloudy (Clear); Glucose Negative (Negative); Ketones Negative (Negative); Leukocyte Esterase Negative (Negative); Nitrite Negative (Negative); Urobilinogen 0.2 mg/dL (Up to 0.2); pH 8.5 (5-8)
[2025-01-11] MEDS: Normal Saline - Diluent 50 ML VIAL IJ (16:25)
[2025-01-11] MEDS: Omnipaque 350 MG/ML 100 ML BTL IJ (16:26)
[2025-01-11 16:28] LABS: Abs Immature Grans 0.02 10^3/uL (0.0-0.06); Absolute Basophil Count 0.03 10^3/uL (0.0-0.2); Absolute Eosinophil Count 0.06 10^3/uL (0.0-0.7); Absolute Lymphocyte Count 3.51 10^3/uL (1.2-3.4); Absolute Monocyte Count 0.66 10^3/uL (0.1-0.8); Absolute Neutrophil Count 5.03 10^3/uL (1.2-6.7); Basophils % 0.3 %; Eosinophils % 0.6 %; HCT 37.2 % (36.0-46.0); HGB 12.7 g/dL (11.2-15.7); Immature Grans % 0.2 %; Lymphocytes % 37.7 %; MCH 30.1 pg (27.0-33.0); MCHC 34.1 % (32.0-36.0); MCV 88 fL (80-95); MPV 9.7 fL (8.0-11.0); Monocytes % 7.1 %; Neutrophils % 54.1 %; Platelet Count 274 10^3/uL (130-400); RBC 4.22 10^6/uL (3.93-5.22); RDW 11.8 % (11.7-14.6); RDW-SD 37.9 fL; WBC 9.31 10^3/uL (4.4-10.8)
[2025-01-11] MEDS: ACETAMINOPHEN 1,000 MG/100 ML BAG 400 MG IVPB (16:41)
[2025-01-11] MEDS: Lactated Ringers 1,000 ML 1000 ML IV (16:42)
[2025-01-11 16:46] LABS: ALT 41 U/L (14-59); AST 21 U/L (15-37); Albumin 3.9 g/dL (3.4-5.0); Alkaline Phosphatase 83 U/L (46-116); Anion Gap 7.7 mmol/L (3-11); BUN 16 mg/dL (7-18); Bilirubin, Total 0.3 mg/dL (0.2-1.0); CO2 31.3 mmol/L (21.0-32.0); CREATININE 0.6 mg/dL (0.55-1.02); Chloride 104 mmol/L (98-107); Estimated GFR 114.86 (mL/min/1.73m2); Glucose 80 mg/dL (74-106); Lipase 23 U/L (<78); Magnesium 1.9 mg/dL (1.8-2.4); Potassium 3.9 mmol/L (3.5-5.1); Sodium 143 mmol/L (136-145); Total Protein 7.5 g/dL (6.4-8.2)
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
[2025-01-11 17:51] VITALS: BP 128/35; PULSE 62; RESP 16; TEMP 35.9; O2SAT 100
== END 2025-01-11 17:50 | disposition home or self-care (01) ==
PROVIDERS: Emergency Provider Physician Assistant; PCP Nurse Practitioner Family
DX: R11.2 Nausea with vomiting, unspecified (principal); E11.9 Type 2 diabetes mellitus without complications; I10 Essential (primary) hypertension; Z79.4 Long term (current) use of insulin; Z87.891 Personal history of nicotine dependence; Z98.84 Bariatric surgery status; Z98.1 Arthrodesis status
CPT/HCPCS: 80053; 83690; 96361; 96374; 99285; 74177; 81003; 83735; 85025; J0131; J3490

== ENCOUNTER 2025-01-21 02:45 | Outpatient (CLI) | payer MEDICAID, SELFPAY ==
--- NOTE | 2025-01-21 10:10 | DI.RAD_ITS ---
Exam(s) XR FINGER LT MIDDLE EXAM: XR FINGER LT MIDDLE CLINICAL HISTORY: PAIN LT MIDDLE FINGER,M79.645. TECHNIQUE: 2D digital imaging was performed. Three views. COMPARISON: None. FINDINGS: BONES: No acute fracture is present. No bony destructive lesion is seen. JOINTS: No dislocation present. No significant joint space narrowing or periarticular spurring. SOFT TISSUE: Normal. IMPRESSION: No evidence of acute fracture, dislocation, or subluxation. DATA REPOSITORY: RADIATION DOSE DELIVERED:
== END 2025-01-21 03:05 ==
LOC: DI 02:45
PROVIDERS: PCP Nurse Practitioner Family; Visit Provider Nurse Practitioner Family
DX: M79.645 Pain in left finger(s) (principal)
CPT/HCPCS: 73140

== ENCOUNTER 2025-02-14 20:59 | Outpatient (REF) | payer MEDICAID, SELFPAY | END 2025-02-14 21:00 | disposition home or self-care (01) | LOC: LBN 20:59 | PROVIDERS: PCP Nurse Practitioner Family; Visit Provider Nurse Practitioner Gerontology | DX: R10.9 Unspecified abdominal pain (principal) | CPT/HCPCS: 87086 ==

== ENCOUNTER 2025-03-14 18:14 | Emergency (ER) | payer MEDICAID, SELFPAY ==
--- NOTE | 2025-03-14 18:15 | RT.EKG_ITS ---
APPROVED REPORT Exam: Resting ECG Reason for Exam: chest pain Patient Location: E HR:71 bpm ECG Measurements Heart Rate 71 AXIS LA 157 P 64 QRSd 116 QRS 46 QT 404 T 55 QTc 441 Conclusion Sinus rhythm...normal P axis, V-rate 60- 99 Incomplete right bundle branch block...QRSd >112, terminal axis(90,270) Low voltage, precordial leads...precordial leads <1.0mV I have reviewed and interpreted ECG and agree with software generated interpretation.
[2025-03-14 18:16] VITALS: BP 114/62; PULSE 73; RESP 16; TEMP 36.9; O2SAT 96
[2025-03-14] MEDS: ACETAMINOPHEN 500 MG/50 ML BAG 200 MG IVPB (18:57)
[2025-03-14 18:59] LABS: Abs Immature Grans 0.02 10^3/uL (0.0-0.06); HCT 36.2 % (36.0-46.0); HGB 12.4 g/dL (11.2-15.7); Immature Grans % 0.2 %; MCH 29.7 pg (27.0-33.0); MCHC 34.3 % (32.0-36.0); MCV 87 fL (80-95); MPV 10.0 fL (8.0-11.0); Platelet Count 251 10^3/uL (130-400); RBC 4.18 10^6/uL (3.93-5.22); RDW 11.6 % (11.7-14.6); RDW-SD 37.0 fL; WBC 8.77 10^3/uL (4.4-10.8)
[2025-03-14 19:15] LABS: ALT 38 U/L (14-59); AST 21 U/L (15-37); Albumin 3.8 g/dL (3.4-5.0); Alkaline Phosphatase 81 U/L (46-116); Anion Gap 8.7 mmol/L (3-11); BUN 13 mg/dL (7-18); Bilirubin, Total 0.3 mg/dL (0.2-1.0); CO2 29.3 mmol/L (21.0-32.0); Calcium 8.7 mg/dL (8.5-10.1); Chloride 108 mmol/L (98-107); Estimated GFR 114.86 (mL/min/1.73m2); Glucose 59 mg/dL (74-106); Lipase 19 U/L (<78); Potassium 3.3 mmol/L (3.5-5.1); Sodium 146 mmol/L (136-145); Total Protein 7.2 g/dL (6.4-8.2); Troponin I < 4 ng/L (<or=51)
[2025-03-14 19:21] LABS: D-Dimer 558 ng/mlFEU (<500)
--- NOTE | 2025-03-14 19:30 | DI.CT_ITS ---
Exam(s) CT CHEST PE CTA EXAM: CT CHEST PE CTA CLINICAL HISTORY: chest pain. TECHNIQUE: Imaging Protocol: Axial CT angiography was performed with multi- slice acquisition and multi-planar reconstructions as well as axial, coronal and sagittal MIP reconstructions. Computer aided detection (CAD) was utilized. CONTRAST MATERIAL: Intravenous: Omnipaque 350 Contrast volume:70 mL COMPARISON: CT CT CHEST PE ABD PELVIS W from 10/18/[address] ABDOMEN PELVIS W from 01/11/2025 FINDINGS: Pulmonary Arteries: Pulmonary arteries are well opacified with IV contrast. No evidence of filling defect to suggest pulmonary emboli. Mediastinum and Carli: No dominant adenopathy or fluid collection. Pulmonary parenchyma: No consolidation or dominant measurable mass. Pleura: No effusion or pneumothorax. Heart: The heart is not dilated. No coronary artery calcifications are seen. Aorta: Thoracic aorta non-dilated. No dissection. Upper abdomen: No acute findings. Gastric bypass surgery. Bones: Unremarkable for age. Tubes, Catheters, and Lines: None Soft tissues: Unremarkable. IMPRESSION: No evidence of pulmonary embolism or other acute abnormality.. The preliminary [facility] report was reviewed. RADIATION DOSE DELIVERED: 97.69mGy.cm Total DLP DATA REPOSITORY: All CT scans at this facility are submitted to the National Radiology Data Registry (NRDR) Dose Index Registry (DIR) with the [employer] ([employer]). RADIATION OPTIMIZATION: All CT scans at this facility use at least one of these dose optimization techniques: automated exposure control; mA and/or kV adjustment per patient size (includes targeted exams where dose is matched to clinical indication); or iterative reconstruction.
[2025-03-14] MEDS: Omnipaque 350 MG/ML 100 ML BTL IJ (19:58)
[2025-03-14] MEDS: Normal Saline - Diluent 50 ML VIAL IJ (19:58)
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
[2025-03-14 20:20] LABS: Troponin I < 4 ng/L (<or=51)
--- NOTE | 2025-03-14 20:48 | DI.[facility]_ITS ---
PROCEDURE INFORMATION: Exam: CTA Chest With Contrast Exam date and time: 03/14/2025 7:49 PM Age: 44 years old Clinical indication: Chest pressure; Chest pain TECHNIQUE: Imaging protocol: Computed tomographic angiography of the chest with contrast. Exam focused on the arteries. 3D rendering (Not supervised by radiologist): MIP and/or 3D reconstructed images were created by the technologist. Total images: 940 Radiation optimization: All CT scans at this facility use at least one of these dose optimization techniques: automated exposure control; mA and/or kV adjustment per patient size (includes targeted exams where dose is matched to clinical indication); or iterative reconstruction. Contrast material: [id number]; Contrast volume: 70 ml; Contrast route: INTRAVENOUS (IV); COMPARISON: CT CHEST PE ABD PELVIS W 10/18/2021 1:41 AM FINDINGS: Pulmonary arteries: No filling defect in the pulmonary arterial tree. Aorta: No aortic aneurysm or dissection. Lungs: No consolidation, mass or suspicious pulmonary nodule. Pleural spaces: No pleural effusion or pneumothorax. Heart: No pericardial effusion. Coronary arteries: No coronary calcification. Lymph nodes: No mediastinal, hilar or axillary adenopathy. Liver: Hepatic steatosis. Stomach: Gastric bypass. Bones/joints: No acute bony abnormality. Soft tissues: No significant finding. IMPRESSION: No acute findings/PE. Dictated and Authenticated by: Oumar Carrera MD. Orderin Rupal Boss MD
[2025-03-14] MEDS: Cyclobenzaprine 10 MG TAB, 3 TABS/BTL PO (21:11)
== END 2025-03-14 21:16 | disposition home or self-care (01) ==
PROVIDERS: Emergency Provider Physician Assistant; PCP Nurse Practitioner Family
DX: R07.89 Other chest pain (principal); Z59.89 Other problems related to housing and economic circumstances; Z60.8 Other problems related to social environment
CPT/HCPCS: 99284; 99285; 96374; 36415; 36416; 82962; 71275; 80053; 83690; 93005; 84484; 85025; 85379; 93010; J0131; J3490

== ENCOUNTER 2025-03-31 16:24 | Emergency (ER) | payer MEDICAID, SELFPAY ==
[2025-03-31 16:26] VITALS: BP 132/89; PULSE 68; RESP 18; TEMP 36.6; O2SAT 98
--- NOTE | 2025-03-31 16:53 | DI.RAD_ITS ---
Exam(s) XR WRIST RT COMPLETE EXAM: XR WRIST RT COMPLETE CLINICAL HISTORY: Wrist injury. TECHNIQUE: 2D digital imaging was performed of the right wrist. Three views were obtained. PA, lateral and oblique views were obtained. COMPARISON: CR,XR XR WRIST RT COMPLETE from 12/16/2020 FINDINGS: BONES: No acute fracture is present. No bony destructive lesion is seen. JOINTS: The carpal bones are normally aligned. SOFT TISSUE: Normal. IMPRESSION: There is no acute fracture or dislocation present. DATA REPOSITORY: RADIATION DOSE DELIVERED:
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
== END 2025-03-31 17:12 | disposition home or self-care (01) ==
PROVIDERS: Emergency Provider General Practice; PCP Nurse Practitioner Family
DX: M25.531 Pain in right wrist (principal); X50.0XXA Overexertion from strenuous movement or load, initial encounter
CPT/HCPCS: 99283 ×2; 29125; 73110

== ENCOUNTER 2025-04-06 11:22 | Emergency (ER) | payer MEDICAID, SELFPAY ==
[2025-04-06 11:26] VITALS: BP 109/70; PULSE 69; RESP 18; TEMP 36.6; O2SAT 97
--- NOTE | 2025-04-06 11:39 | W.ED.GENAD ---
Discharge Plan Disposition Patient Disposition: Home Condition: Stable Discharge Details Clinical Impression: Choking due to food (regurgitated) Primary Care Provider: Deyanira Marcus ED Provider: Dustin Blanco Richards Meds and New Rx's Prescriptions: Continued albuterol sulfate [ProAir HFA] 90 mcg/actuation HFA aerosol inhaler 2 inh inhalation Q6H PRN fluticasone propionate [Flovent HFA] 110 mcg/actuation HFA aerosol inhaler 1 inh inhalation BID biotin 1 mg capsule 1 mg PO DAILY divalproex [Depakote] 250 mg tablet,delayed release (DR/EC) 250 mg PO BID Patient Comments: taking once daily, in am xwxzogvqbecp-Ou-eiqt-minerals 18-0.4 mg tablet 1 tab PO DAILY bupropion HCl 300 mg tablet extended release 24 hr 300 mg PO QAM cholecalciferol (vitamin D3) 50 mcg (2,000 unit) capsule 50 mcg PO DAILY lisinopril 5 mg tablet 5 mg PO DAILY trazodone 50 mg tablet 50 mg PO QHS PRN calcium citrate 250 mg calcium tablet 500 mg PO BID cyanocobalamin (vitamin B-12) 1,000 mcg capsule 2,500 mcg PO DAILY ondansetron 4 mg tablet,disintegrating 4 mg PO Q8H mirtazapine 7.5 mg tablet 7.5 mg PO DAILY Vitron-C 65 mg iron- 125 mg tablet,delayed release (DR/EC) 1 tab PO DAILY Rx Instructions: take Mondays, Wednesdays, and Fridays. fluticasone furoate [Arnuity Ellipta] 100 mcg/actuation blister with device 1 inh inhalation DAILY oxybutynin chloride 5 mg tablet extended release 24hr 15 mg PO DAILY Qty: 240 1RF Rx Instructions: Take 1-3 tabs/day for bladder spams Emgality Pen 120 mg/mL pen injector 120 mg subcut QMONTH Qty: 3 3RF sumatriptan succinate 100 mg tablet See Rx Instructions PO .COMPLEX Qty: 9 5RF Rx Instructions: take 1 tab at onset of headache; if no relief, may repeat 1 tab after at least 2 hrs; max = 2 tabs/24 hrs PO pantoprazole 40 mg Tablet,Delayed Release (Dr/Ec) 40 mg PO DAILY loratadine 10 mg capsule 10 mg PO DAILY PRN amitriptyline 10 mg tablet 10 mg PO DAILY Patient Comments: TAKE ONE TABLET BY MOUTH EVERY NIGHT acarbose 25 mg tablet 25 mg PO TID Patient Comments: TAKE ONE TABLET BY MOUTH THREE TIMES A DAY thiamine HCl (vitamin B1) 100 mg tablet 100 mg PO DAILY Patient Comments: TAKE ONE TABLET BY MOUTH EVERY DAY cyclobenzaprine 10 mg tablet 10 mg PO TID PRNQty: 6 0RF potassium chloride [Klor-Con M20] 20 mEq tablet,ER particles/crystals 40 meq PO DAILY Qty: 2 0RF acetaminophen 500 mg tablet 500 mg PO Q6H PRN (Reason: pain) Qty: 60 0RF Discharge Instructions Additional Instructions: When food is stuck in the throat but can leave some irritation which usually resolves over the next few days. If not improving this week follow-up with your primary care provider or express care. If you are not able to swallow water or liquids return to the emergency department for reevaluation. Stand Alone Forms: Work Release HPI General Mode of arrival: ambulatory. Date/Time Provider Initiated Documentation: 04/06/25 11:24. Limitations to Documentation: no limitations. Information obtained by: patient. History of Present Illness 44 year old F presents to the emergency department with the chief complaint of choked on food, described as moderate, and is localized to the neck (throat). Patient started experiencing this hour(s) (1) and it has been now resolved. No relieving factors improve symptom(s), No exacerbating factors reported . Patient notes no other symptoms.. Related Data Home Medications ?Medication ?Instructions ?Recorded ?Confirmed pantoprazole 40 mg tablet,delayed 40 mg PO DAILY 05/11/19 04/06/25 release acetaminophen 500 mg tablet 500 mg PO Q6H PRN pain #60 tabs 05/28/20 04/06/25 loratadine 10 mg capsule 10 mg PO DAILY PRN 01/21/21 04/06/25 albuterol sulfate 90 mcg/actuation 2 inh inhalation Q6H PRN 03/23/21 04/06/25 aerosol inhaler (ProAir HFA) fluticasone propionate 110 1 inh inhalation BID 03/23/21 04/06/25 mcg/actuation HFA aerosol inhaler (Flovent HFA) biotin 1 mg capsule 1 mg PO DAILY 10/22/21 04/06/25 divalproex 250 mg tablet,delayed 250 mg PO BID 10/22/21 04/06/25 release (Depakote) ftqiogktdqhz-Dj-dsyo-minerals 18 1 tab PO DAILY 10/22/21 04/06/25 mg-0.4 mg tablet bupropion HCl 300 mg 24 hr tablet, 300 mg PO QAM 01/20/23 04/06/25 extended release cholecalciferol (vitamin D3) 50 50 mcg PO DAILY 01/20/23 04/06/25 mcg (2,000 unit) capsule lisinopril 5 mg tablet 5 mg PO DAILY 01/20/23 04/06/25 trazodone 50 mg tablet 50 mg PO QHS PRN 01/20/23 04/06/25 calcium citrate 500 mg PO BID 04/09/24 04/06/25 cyanocobalamin (vitamin B-12) 2,500 mcg PO DAILY 04/09/24 04/06/25 1,000 mcg capsule ondansetron 4 mg disintegrating 4 mg PO Q8H 04/09/24 04/06/25 tablet amitriptyline 10 mg tablet 10 mg PO DAILY 07/13/24 04/06/25 acarbose 25 mg tablet 25 mg PO TID 10/30/24 04/06/25 mirtazapine 7.5 mg tablet 7.5 mg PO DAILY 11/27/24 04/06/25 fluticasone furoate 100 1 inh inhalation DAILY 01/10/25 04/06/25 mcg/actuation blister powder for inhalation (Arnuity Ellipta) iron,carbonyl 65 mg-vitamin C 125 1 tab PO DAILY 01/10/25 04/06/25 mg tablet,delayed release (Vitron-C) oxybutynin chloride 5 mg 15 mg (3 x 5 mg) PO DAILY #240 tabs 02/25/25 04/06/25 tablet,extended release 24 hr cyclobenzaprine 10 mg tablet 10 mg PO TID PRN #6 tabs 03/14/25 04/06/25 potassium chloride 20 mEq 40 meq (2 x 20 mEq) PO DAILY #2 03/14/25 04/06/25 tablet,extended tabs release(part/cryst) (Klor-Con M) thiamine HCl (vitamin B1) 100 mg 100 mg PO DAILY 03/14/25 04/06/25 tablet galcanezumab-gnlm 120 mg/mL 120 mg subcut QMONTH #3 mL 04/03/25 04/06/25 subcutaneous pen injector (Emgality Pen) sumatriptan succinate 100 mg tablet See Rx Instructions PO .COMPLEX #9 04/03/25 04/06/25 tabs Previous Rx's ?Medication ?Instructions ?Recorded acetaminophen 500 mg tablet 500 mg PO Q6H PRN pain #60 tabs 05/28/20 oxybutynin chloride 5 mg 15 mg (3 x 5 mg) PO DAILY #240 tabs 02/25/25 tablet,extended release 24 hr cyclobenzaprine 10 mg tablet 10 mg PO TID PRN #6 tabs 03/14/25 potassium chloride 20 mEq 40 meq (2 x 20 mEq) PO DAILY #2 03/14/25 tablet,extended tabs release(part/cryst) (Klor-Con M) galcanezumab-gnlm 120 mg/mL 120 mg subcut QMONTH #3 mL 04/03/25 subcutaneous pen injector (Emgality Pen) sumatriptan succinate 100 mg tablet See Rx Instructions PO .COMPLEX #9 04/03/25 tabs Allergies Allergy/AdvReac Type Severity Reaction Status Date / Time amoxicillin Allergy Severe trouble Verified 04/06/25 11:29 breathing and a rash artichoke Allergy Severe ANAPHYLAXIS Verified 04/06/25 11:29 Penicillins Allergy Intermediate HIVES Verified 04/06/25 11:29 sodium hypochlorite solution Allergy Intermediate HIVES/SOB Verified 04/06/25 11:29 (sodium hypochlorite) tramadol Allergy Intermediate vomiting Verified 04/06/25 11:29 adhesive tape Allergy Mild Skin Rash Verified 04/06/25 11:29 ibuprofen AdvReac Severe GI Bleeding Verified 04/06/25 11:29 General Stated Complaint: ThroatFB MIKE: 3 Review of Systems All systems reviewed & are unremarkable except as noted in HPI and below Constitutional Constitutional: Denies chills, Denies fever(s) and Denies weakness Cardiovascular Cardiovascular: Denies dyspnea Respiratory Respiratory: Denies dyspnea Gastrointestinal Gastrointestinal: Denies abdominal pain and Denies nausea Neurologic Neurologic: Denies weakness Exam Const General: no acute distress Orientation: alert HENMT Head: normal to inspection Ears: external ears normal General nose exam: external nose normal Mouth: oral mucosae normal, moist mucous membranes and no trismus Eyes General: appearance normal, both eyes and all related structures Neck Neck: normal visual inspection Resp Effort & Inspection: normal respiratory effort and able to speak in complete sentences Cardio Rate: regular rate Skin General skin exam: no rashes or lesions noted Neuro General: patient alert and patient oriented x3 Extrem General: normal to inspection Psych Mental Status: mental status grossly normal Course Vital Signs Vital signs: Vital Signs Temperature 36.6 C 04/06/25 11:26 Pulse 69 04/06/25 11:26 Respiratory Rate 18 04/06/25 11:26 Blood Pressure 109/70 04/06/25 11:26 Pulse Oximetry 97 04/06/25 11:26 Temperature 36.6 C 04/06/25 11:26 Temperature Source Oral 04/06/25 11:26 Pulse 69 04/06/25 11:26 Respiratory Rate 18 04/06/25 11:26 Blood Pressure 109/70 04/06/25 11:26 Blood Pressure Position Sitting 04/06/25 11:26 Pulse Oximetry 97 04/06/25 11:26 Oxygen Delivery Method Room Air 04/06/25 11:26 Oxygen Flow Rate 0 04/06/25 11:26 Pain Level 0 04/06/25 11:26 Medical Decision Making 44-year-old female comes in after she was at work and was eating a puppy muffin and swallowed and states she started choking. She was able to get it out by make himself throw up. She denies any loss of consciousness and states she has very mild irritation in the back of her throat otherwise feels well. She is well-appearing on exam with no stridor or drooling. She is swallowing normally. She has a normal posterior pharynx with a midline uvula, no submandibular swelling or pain over the hyoid or restricted neck movements. I suspect she has mild irritation from choking on food. She has no findings on exam to suggest airway compromise or retained food bolus. I do not feel any imaging or labs are indicated. She will follow-up with her PCP or urgent care if needed and return precautions given. Differential Diagnosis Differential Diagnosis: Throat foreign body, choking episode Quality:SDOH Health Related Social Needs: Health related social needs material hardship house/econ circumstance lonely/isolated PFSH All Active Problems (Updated 04/06/25 @ 11:40 by Dustin Blanco MD) Choking due to food (regurgitated) (Acute) Right wrist pain (Acute) Atypical chest pain (Acute) Right wrist pain (Acute) Flank pain (Acute) Left upper limb pain (Acute) Left upper extremity numbness (Acute) Post concussion syndrome (Acute) Chronic headache (Acute) Disorder of bone (Acute) Fatigue (Acute) Intestinal anastomosis present (Acute) Post traumatic stress disorder (Acute) Paresthesia of lower extremity (Acute) Mild intermittent asthma (Acute) Lumbosacral radiculopathy (Acute) Steatosis of liver (Acute) Hx of nutritional disorder (Acute) Bipolar disorder (Acute) Hypercalcemia (Acute) Lack of libido (Acute) Easy bruising (Acute) Osteopenia (Acute) Ankle pain (Acute) COVID-19 (Acute) Right kidney stone (Acute) Right carpal tunnel syndrome (Acute) Psychogenic nonepileptic seizure (Acute) Screening for colon cancer (Acute) Bilateral kidney stones (Acute) Arm paresthesia, right (Acute) Left ankle sprain (Acute) Chest pain (Acute) Gastric bypass status for obesity (Acute) Bipolar 1 disorder (Acute) Seizure disorder (Chronic) Fall (Acute) Hypokalemia (Acute) Sinus bradycardia (Acute) Hematemesis (Acute) Vomiting (Acute) Bradycardia (Acute) Sprain of right elbow (Acute) Contusion of right forearm (Acute) Right wrist sprain (Acute) Cubital tunnel syndrome on right (Acute) Medial epicondylitis, right elbow (Acute) Right lateral epicondylitis (Acute) Migraine headache without aura (Acute) Viral illness (Acute) CHAPARRO (nonalcoholic steatohepatitis) (Acute) Medial epicondylitis, left elbow (Acute) Carpal tunnel syndrome on both sides (Acute) Tubular adenoma of colon (Acute 11/26/16) Numbness of left hand (Acute 07/04/17) Migraine (Acute 02/12/14) Elevated lipids (Acute 02/12/14) Diabetes (Acute 02/12/14) diet controlled Anxiety and depression (Acute 02/12/14) Medical History Hx of colonic polyp Dysuria Absence seizure Pt. states she had one 01/04/24, pt. states she was over heated, states she was in the bathtub and her daughter said she was shaking and her eyes rolled back in her head Hypertension Medial epicondylitis of elbow Spinal stenosis Snoring Obesity Family history of attention deficit hyperactivity disorder Macromastia Cubital tunnel syndrome Lumbar disc herniation Depressive disorder Adrenal abnormality Chronic back pain Cervical cancer GERD (gastroesophageal reflux disease) Kidney stone Asthma Diabetes mellitus, type 2 Polycystic ovaries Migraine Obstructive sleep apnea syndrome pt. 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 (Date of Surgery: 03/02/18 and 10/02/2019) anterior cruciate ligament reconstruction Ligation of fallopian tube Open Carpal Tunnel release (10/23/12) RIGHT SIDE, left 8.14.14 Vaginal hysterectomy Endoscopic Carpal Tunnel release (01/14/09) 09/16/2010 REPEAT ECTR RIGHT EGD - MAC (11/26/16) Colonoscopy - MAC (02/18/23) 11/26/2016 section twice Family History Maternal Grandfather Hyperlipidemia Hypertension Arthritis Hyperthyroidism Diabetes Mother Hyperlipidemia Hypertension Uterine cancer Hyperthyroidism Diabetes Father , suicide No problems noted. Maternal Grandmother Breast cancer Social History Smoking/Tobacco Use Status: Former Tobacco Use Quit Date: 08/01/05 Smoking risk assessment performed?: Yes Alcohol Intake: never Drug use: Never Substance use type: does not use Household members: spouse and children Housing: apartment Current gender identity: female What is your relationship status?: Panel score (0-1 are the most socially isolated patients): 1 Seatbelt use: always Do you feel safe at home: Yes Do you feel safe in your relationship?: Yes Additional Social history: [employer]
== END 2025-04-06 11:55 | disposition home or self-care (01) ==
PROVIDERS: Emergency Provider Emergency Medicine; PCP Nurse Practitioner Family
DX: T17.320A Food in larynx causing asphyxiation, initial encounter (principal); W44.F3XA Food entering into or through a natural orifice, initial encounter; Z59.87 Material hardship due to limited financial resources, not elsewhere classified; Z59.89 Other problems related to housing and economic circumstances; Z60.8 Other problems related to social environment
CPT/HCPCS: 99282; 99281

== ENCOUNTER 2025-04-23 00:52 | Outpatient (CLI) | payer MEDICAID, SELFPAY ==
--- NOTE | 2025-04-23 | DI.US_ITS ---
Exam(s) US ABDOMEN LIMITED EXAM: US ABDOMEN LIMITED CLINICAL HISTORY: FATTY LIVER K76.0 STEATOTIC LIVER DISEASE TECHNIQUE: Ultrasound of the right upper quadrant performed using standard protocol. COMPARISON: CT CT ABDOMEN PELVIS W from 01/11/2025 FINDINGS: LIVER: Normal size, 15.8 cm in length. Mildly increased liver echogenicity consistent with mild hepatic steatosis. No focal liver lesions are seen. GALLBLADDER: No evidence of cholelithiasis. No evidence of wall thickening. No pericholecystic fluid identified. STOKES'S SIGN: Negative. BILIARY SYSTEM: No intrahepatic or extrahepatic biliary ductal dilation. RIGHT KIDNEY: Normal size. No evidence of renal calculi. No evidence of hydronephrosis. No suspicious renal mass. No cyst identified. PANCREAS: Normal where visualized. ABDOMINAL AORTA AND IVC: Visualized portions normal caliber. ASCITES: None seen. IMPRESSION: Mild hepatic steatosis. DATA REPOSITORY:
== END 2025-04-23 01:12 ==
LOC: DI 00:52
PROVIDERS: PCP Nurse Practitioner Family; Visit Provider Nurse Practitioner Family
DX: K76.0 Fatty (change of) liver, not elsewhere classified (principal)
CPT/HCPCS: 76705

== ENCOUNTER 2025-04-24 03:36 | Outpatient (CLI) | payer MEDICAID, SELFPAY ==
--- NOTE | 2025-04-24 | DI.MRI_ITS ---
Exam(s) MR UPPER EXTREMITY LT WO EXAM: MR UPPER EXTREMITY LT WO CLINICAL HISTORY: TRIGGER MIDDLE FINGER LEFT HAND M65.332. TECHNIQUE: Multiplanar multisequence MRI was performed. COMPARISON: None. FINDINGS: BONES: There is no evidence of fracture. There is high signal in the base of the 2nd proximal phalanx, nonspecific. No periarticular erosions. JOINTS: No joint effusions. TENDONS: Flexors: Unremarkable. No abnormal tendon thickening. No significant fluid within the tendon sheaths. Extensors: Unremarkable. MUSCLES: Unremarkable. MEDIAN NERVE: Unremarkable on this noncontrast examination. SOFT TISSUES: Unremarkable. IMPRESSION: No discrete abnormality involving the 3rd finger bone, tendons or soft tissues. DATA REPOSITORY:
== END 2025-04-24 03:56 ==
LOC: DI 03:37
PROVIDERS: PCP Nurse Practitioner Family
DX: M65.332 Trigger finger, left middle finger (principal)
CPT/HCPCS: 73218

== ENCOUNTER 2025-05-11 08:09 | Emergency (ER) | payer MEDICAID, SELFPAY ==
[2025-05-11] VITALS (13 sets, daily range): BP systolic 117–138; BP diastolic 54–67; PULSE 58–71; RESP 14–20; TEMP 36.8; O2SAT 98–100
--- NOTE | 2025-05-11 08:15 | RT.EKG_ITS ---
APPROVED REPORT Exam: Resting ECG Reason for Exam: Lightheadedness Patient Location: E HR:62 bpm ECG Measurements Heart Rate 62 AXIS NJ 169 P -11 QRSd 106 QRS 4 QT 419 T 27 QTc 427 Conclusion Sinus rhythm...normal P axis, V-rate 60- 99 No Occlusion SD
--- NOTE | 2025-05-11 08:16 | W.ED.GENAD ---
Discharge Plan Disposition Patient Disposition: Home Discharge Details Clinical Impression: Lightheadedness Primary Care Provider: Deyanira Marcus ED Provider: Jimmy Roach Home Meds and New Rx's Prescriptions: Continued albuterol sulfate [ProAir HFA] 90 mcg/actuation HFA aerosol inhaler 2 inh inhalation Q6H PRN fluticasone propionate [Flovent HFA] 110 mcg/actuation HFA aerosol inhaler 1 inh inhalation BID biotin 1 mg capsule 1 mg PO DAILY divalproex [Depakote] 250 mg tablet,delayed release (DR/EC) 250 mg PO BID Patient Comments: taking once daily, in am lsklxjeegfoo-Ft-elyv-minerals 18-0.4 mg tablet 1 tab PO DAILY bupropion HCl 300 mg tablet extended release 24 hr 300 mg PO QAM cholecalciferol (vitamin D3) 50 mcg (2,000 unit) capsule 50 mcg PO DAILY lisinopril 5 mg tablet 5 mg PO DAILY trazodone 50 mg tablet 50 mg PO QHS PRN calcium citrate 250 mg calcium tablet 500 mg PO BID cyanocobalamin (vitamin B-12) 1,000 mcg capsule 2,500 mcg PO DAILY ondansetron 4 mg tablet,disintegrating 4 mg PO Q8H mirtazapine 7.5 mg tablet 7.5 mg PO DAILY Vitron-C 65 mg iron- 125 mg tablet,delayed release (DR/EC) 1 tab PO DAILY Rx Instructions: take Mondays, Wednesdays, and Fridays. fluticasone furoate [Arnuity Ellipta] 100 mcg/actuation blister with device 1 inh inhalation DAILY oxybutynin chloride 5 mg tablet extended release 24hr 15 mg PO DAILY Qty: 240 1RF Rx Instructions: Take 1-3 tabs/day for bladder spams Emgality Pen 120 mg/mL pen injector 120 mg subcut QMONTH Qty: 3 3RF sumatriptan succinate 100 mg tablet See Rx Instructions PO .COMPLEX Qty: 9 5RF Rx Instructions: take 1 tab at onset of headache; if no relief, may repeat 1 tab after at least 2 hrs; max = 2 tabs/24 hrs PO pantoprazole 40 mg Tablet,Delayed Release (Dr/Ec) 40 mg PO DAILY loratadine 10 mg capsule 10 mg PO DAILY PRN amitriptyline 10 mg tablet 10 mg PO DAILY Patient Comments: TAKE ONE TABLET BY MOUTH EVERY NIGHT acarbose 25 mg tablet 25 mg PO TID Patient Comments: TAKE ONE TABLET BY MOUTH THREE TIMES A DAY thiamine HCl (vitamin B1) 100 mg tablet 100 mg PO DAILY Patient Comments: TAKE ONE TABLET BY MOUTH EVERY DAY cyclobenzaprine 10 mg tablet 10 mg PO TID PRNQty: 6 0RF potassium chloride [Klor-Con M20] 20 mEq tablet,ER particles/crystals 40 meq PO DAILY Qty: 2 0RF acetaminophen 500 mg tablet 500 mg PO Q6H PRN (Reason: pain) Qty: 60 0RF Discharge Instructions Additional Instructions: You were seen in the emergency department for your lightheadedness. Your blood work shows your kidneys are working well. You have no signs of anemia. You have no signs of a heart attack. As we discussed if you pass out or if you develop any black or bloody stools or chest pain please return to the emergency department. Otherwise please follow-up as needed with your primary care provider next week. Stand Alone Forms: Work Release Discharge Data Discharge Date/Time-TO BE ENTERED AT DEPARTURE: 05/11/25 10:46 HPI General Date/Time Provider Initiated Documentation: 05/11/25 08:15. HPI Narrative: MDM This is an overall very well-appearing normothermic and not tachycardic diabetic female with resolving lightheadedness with nausea for which she will undergo troponin testing to assess for ACS in setting of her nonischemic ECG. No black or bloody stools to suggest acute GI bleed. No pain out of proportion to suggest necrotizing soft tissue infection. No dysuria or frequency to suggest UTI. Patient is neurologically intact and lacks headache so my suspicion for acute CVA is low so I do not feel patient would be a candidate for thrombectomy nor TNK. No tonic-clonic activity to suggest seizures and no benefit for EEG. No nuchal rigidity to suggest meningitis so no indication for lumbar puncture. Patient is not a headache to suggest subarachnoid hemorrhage nor cerebral venous sinus thrombosis. I considered PE however patient is PERC negative so I did not send a D-dimer. Patient has a reassuring fingerstick blood glucose at 124 in the emergency department. She is having no ataxia nor nystagmus so I did not apply the hints exam as my suspicion was low for posterior circulation CVA. Will obtain basic labs and reassess. In the setting of lightheadedness I considered patient age which was reassuring against a dangerous cause of syncope. Her syncope was not exertional. She has no history of heart failure. Her ECG lacks any blocks. She has no delta wave to suggest WPW. No ischemic changes. No signs of Brugada nor hypertrophic obstructive cardiomyopathy. No signs of arrhythmogenic right ventricular dysplasia based on no epsilon wave or inverted T waves in the anterior precordium. 9:08 AM CBC lacks anemia thrombocytopenia and leukocytosis. 9:23 AM Undetectable initial troponin. Basic metabolic panel lacks ALANNA. Mild hyperglycemia but normal anion gap. Normal bicarbonate??not consistent with DKA. Diagnostic interpretations performed by me: Per my independent interpretation EKG shows: Sinus rhythm with a rate of 62. Normal axis. [place] and QTc within normal limits. Interventricular conduction delay QRS 106 ms. Appears similar to prior. Prior dated earlier this year. No acute injury pattern. HPI This is a female with a history of diabetes presenting with dizziness. She experienced a sudden onset of lightheadedness and dizziness while at work at [employer], which she initially attributed to low blood sugar levels. Her blood sugar was 78. Despite consuming a donut and coffee, her blood sugar remained low at 38 an hour later. This was accompanied by shakiness and a general feeling of unwellness, prompting her to seek assistance for transportation. Upon arrival at the clinic, her blood sugar was recorded as 126, which is within her normal range. She continues to experience lightheadedness and mild dizziness, along with some residual shakiness. She reports no chest pain or breathing difficulties. She has no history of blood clots in her legs or lungs. She also reports no abdominal pain or nausea, although she did experience one episode of vomiting today. She felt normal upon waking up this morning and had a regular day until the sudden onset of symptoms. She does not report any headaches or changes in stool color. Exam General: Well-appearing in no acute distress speaking in complete sentences. Head: Normocephalic, atraumatic. Eye: Extraocular eye movements intact. No conjunctival injection. No scleral icterus. No nystagmus. Ear, nose, mouth, throat: Grossly normal inspection. Normal voice, handling secretions normally. Neck: Trachea midline. No nuchal rigidity. Cardiovascular: Well-perfused distal extremities. Regular rate and rhythm regular rate rhythm. Respiratory: Nonlabored respiration. Clear lungs bilaterally. Gastrointestinal: Nondistended abdomen. Soft. Nontender. Musculoskeletal: No edema. Moving all 4 extremities spontaneously. Skin: Normal for age and race, grossly normal temperature and turgor. No acute rash. Neurologic: Alert and appropriate, no apparent acute deficits. GCS 15. Cranial nerves II through XII intact grossly. 5/5 bilateral upper and lower extremity strength. Visual shane intact by confrontation. Related Data Home Medications ?Medication ?Instructions ?Recorded ?Confirmed pantoprazole 40 mg tablet,delayed 40 mg PO DAILY 05/11/19 05/11/25 release acetaminophen 500 mg tablet 500 mg PO Q6H PRN pain #60 tabs 05/28/20 05/11/25 loratadine 10 mg capsule 10 mg PO DAILY PRN 01/21/21 05/11/25 albuterol sulfate 90 mcg/actuation 2 inh inhalation Q6H PRN 03/23/21 05/11/25 aerosol inhaler (ProAir HFA) fluticasone propionate 110 1 inh inhalation BID 03/23/21 05/11/25 mcg/actuation HFA aerosol inhaler (Flovent HFA) biotin 1 mg capsule 1 mg PO DAILY 10/22/21 05/11/25 divalproex 250 mg tablet,delayed 250 mg PO BID 10/22/21 05/11/25 release (Depakote) ayeaomzijtmi-Ic-pqqm-minerals 18 1 tab PO DAILY 10/22/21 05/11/25 mg-0.4 mg tablet bupropion HCl 300 mg 24 hr tablet, 300 mg PO QAM 01/20/23 05/11/25 extended release cholecalciferol (vitamin D3) 50 50 mcg PO DAILY 01/20/23 05/11/25 mcg (2,000 unit) capsule lisinopril 5 mg tablet 5 mg PO DAILY 01/20/23 05/11/25 trazodone 50 mg tablet 50 mg PO QHS PRN 01/20/23 05/11/25 calcium citrate 500 mg PO BID 04/09/24 05/11/25 cyanocobalamin (vitamin B-12) 2,500 mcg PO DAILY 04/09/24 05/11/25 1,000 mcg capsule ondansetron 4 mg disintegrating 4 mg PO Q8H 04/09/24 05/11/25 tablet amitriptyline 10 mg tablet 10 mg PO DAILY 07/13/24 05/11/25 acarbose 25 mg tablet 25 mg PO TID 10/30/24 05/11/25 mirtazapine 7.5 mg tablet 7.5 mg PO DAILY 11/27/24 05/11/25 fluticasone furoate 100 1 inh inhalation DAILY 01/10/25 05/11/25 mcg/actuation blister powder for inhalation (Arnuity Ellipta) iron,carbonyl 65 mg-vitamin C 125 1 tab PO DAILY 01/10/25 05/11/25 mg tablet,delayed release (Vitron-C) oxybutynin chloride 5 mg 15 mg (3 x 5 mg) PO DAILY #240 tabs 02/25/25 05/11/25 tablet,extended release 24 hr cyclobenzaprine 10 mg tablet 10 mg PO TID PRN #6 tabs 03/14/25 05/11/25 potassium chloride 20 mEq 40 meq (2 x 20 mEq) PO DAILY #2 03/14/25 05/11/25 tablet,extended tabs release(part/cryst) (Klor-Con M) thiamine HCl (vitamin B1) 100 mg 100 mg PO DAILY 03/14/25 05/11/25 tablet galcanezumab-gnlm 120 mg/mL 120 mg subcut QMONTH #3 mL 04/03/25 05/11/25 subcutaneous pen injector (Emgality Pen) sumatriptan succinate 100 mg tablet See Rx Instructions PO .COMPLEX #9 04/03/25 05/11/25 tabs Previous Rx's ?Medication ?Instructions ?Recorded acetaminophen 500 mg tablet 500 mg PO Q6H PRN pain #60 tabs 05/28/20 oxybutynin chloride 5 mg 15 mg (3 x 5 mg) PO DAILY #240 tabs 02/25/25 tablet,extended release 24 hr cyclobenzaprine 10 mg tablet 10 mg PO TID PRN #6 tabs 03/14/25 potassium chloride 20 mEq 40 meq (2 x 20 mEq) PO DAILY #2 03/14/25 tablet,extended tabs release(part/cryst) (Klor-Con M) galcanezumab-gnlm 120 mg/mL 120 mg subcut QMONTH #3 mL 04/03/25 subcutaneous pen injector (Emgality Pen) sumatriptan succinate 100 mg tablet See Rx Instructions PO .COMPLEX #9 04/03/25 tabs Allergies Allergy/AdvReac Type Severity Reaction Status Date / Time amoxicillin Allergy Severe trouble Verified 05/11/25 08:15 breathing and a rash artichoke Allergy Severe ANAPHYLAXIS Verified 05/11/25 08:15 Penicillins Allergy Intermediate HIVES Verified 05/11/25 08:15 sodium hypochlorite solution Allergy Intermediate HIVES/SOB Verified 05/11/25 08:15 (sodium hypochlorite) tramadol Allergy Intermediate vomiting Verified 05/11/25 08:15 adhesive tape Allergy Mild Skin Rash Verified 05/11/25 08:15 ibuprofen AdvReac Severe GI Bleeding Verified 05/11/25 08:15 General Stated Complaint: Diabetes MIKE: 3 Course Vital Signs Vital signs: Vital Signs Temperature 36.8 C 05/11/25 08:09 Pulse 70 05/11/25 08:09 Respiratory Rate 18 05/11/25 08:09 Blood Pressure 122/54 L 05/11/25 08:09 Pulse Oximetry 98 05/11/25 08:09 Temperature 36.8 C 05/11/25 08:14 Pulse 70 05/11/25 08:14 Respiratory Rate 18 05/11/25 08:14 Blood Pressure 122/54 L 05/11/25 08:14 Blood Pressure Position Sitting 05/11/25 08:14 Pulse Oximetry 98 05/11/25 08:14 Oxygen Delivery Method Room Air 05/11/25 08:14 Oxygen Flow Rate 0 05/11/25 08:14 Pain Level 0 05/11/25 08:14 Medical Decision Making Quality:SDOH Health Related Social Needs: Health related social needs material hardship house/econ circumstance lonely/isolated PFSH All Active Problems (Updated 05/11/25 @ 09:26 by Jimmy Roach MD) Lightheadedness (Acute) Right wrist pain (Acute) Flank pain (Acute) Left upper limb pain (Acute) Left upper extremity numbness (Acute) Post concussion syndrome (Acute) Chronic headache (Acute) Disorder of bone (Acute) Fatigue (Acute) Intestinal anastomosis present (Acute) Post traumatic stress disorder (Acute) Paresthesia of lower extremity (Acute) Mild intermittent asthma (Acute) Lumbosacral radiculopathy (Acute) Steatosis of liver (Acute) Hx of nutritional disorder (Acute) Bipolar disorder (Acute) Hypercalcemia (Acute) Lack of libido (Acute) Easy bruising (Acute) Osteopenia (Acute) Ankle pain (Acute) COVID-19 (Acute) Right kidney stone (Acute) Right carpal tunnel syndrome (Acute) Psychogenic nonepileptic seizure (Acute) Screening for colon cancer (Acute) Bilateral kidney stones (Acute) Arm paresthesia, right (Acute) Left ankle sprain (Acute) Chest pain (Acute) Gastric bypass status for obesity (Acute) Bipolar 1 disorder (Acute) Seizure disorder (Chronic) Fall (Acute) Hypokalemia (Acute) Sinus bradycardia (Acute) Hematemesis (Acute) Vomiting (Acute) Bradycardia (Acute) Sprain of right elbow (Acute) Contusion of right forearm (Acute) Right wrist sprain (Acute) Cubital tunnel syndrome on right (Acute) Medial epicondylitis, right elbow (Acute) Right lateral epicondylitis (Acute) Migraine headache without aura (Acute) Viral illness (Acute) CHAPARRO (nonalcoholic steatohepatitis) (Acute) Medial epicondylitis, left elbow (Acute) Carpal tunnel syndrome on both sides (Acute) Tubular adenoma of colon (Acute 11/26/16) Numbness of left hand (Acute 07/04/17) Migraine (Acute 02/12/14) Elevated lipids (Acute 02/12/14) Diabetes (Acute 02/12/14) diet controlled Anxiety and depression (Acute 02/12/14) Medical History Hx of colonic polyp Dysuria Absence seizure Pt. states she had one 01/04/24, pt. states she was over heated, states she was in the bathtub and her daughter said she was shaking and her eyes rolled back in her head Hypertension Medial epicondylitis of elbow Spinal stenosis Snoring Obesity Family history of attention deficit hyperactivity disorder Macromastia Cubital tunnel syndrome Lumbar disc herniation Depressive disorder Adrenal abnormality Chronic back pain Cervical cancer GERD (gastroesophageal reflux disease) Kidney stone Asthma Diabetes mellitus, type 2 Polycystic ovaries Migraine Obstructive sleep apnea syndrome pt. states she does not have this anymore r/t to gastric bypass Elevated lipids Anxiety and depression Surgical History Hx of tonsillectomy History of lumbar surgery Pt reports lower back disc, rods and screws 5 years ago, 2017' H/O gastric bypass Cubital tunnel syndrome on left (09/14/17) 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 (Date of Surgery: 03/02/18 and 10/02/2019) anterior cruciate ligament reconstruction Ligation of fallopian tube Open Carpal Tunnel release (10/23/12) RIGHT SIDE, left 8.14.14 Vaginal hysterectomy Endoscopic Carpal Tunnel release (01/14/09) 09/16/2010 REPEAT ECTR RIGHT EGD - MAC (11/26/16) Colonoscopy - MAC (02/18/23) 11/26/2016 section twice Family History Maternal Grandfather Hyperlipidemia Hypertension Arthritis Hyperthyroidism Diabetes Mother Hyperlipidemia Hypertension Uterine cancer Hyperthyroidism Diabetes Father , suicide No problems noted. Maternal Grandmother Breast cancer Social History Smoking/Tobacco Use Status: Former Tobacco Use Quit Date: 08/01/05 Smoking risk assessment performed?: Yes Alcohol Intake: never Drug use: Never Substance use type: does not use Household members: spouse and children Housing: apartment Current gender identity: female What is your relationship status?: Panel score (0-1 are the most socially isolated patients): 1 Seatbelt use: always Do you feel safe at home: Yes Do you feel safe in your relationship?: Yes Additional Social history: [employer]
[2025-05-11 08:58] LABS: Abs Immature Grans 0.00 10^3/uL (0.0-0.06); HCT 36.9 % (36.0-46.0); HGB 12.3 g/dL (11.2-15.7); Immature Grans % 0.0 %; MCH 28.7 pg (27.0-33.0); MCHC 33.3 % (32.0-36.0); MCV 86 fL (80-95); MPV 9.7 fL (8.0-11.0); Platelet Count 245 10^3/uL (130-400); RBC 4.29 10^6/uL (3.93-5.22); RDW 11.9 % (11.7-14.6); RDW-SD 36.8 fL; WBC 6.72 10^3/uL (4.4-10.8)
[2025-05-11 09:15] LABS: Anion Gap 7.9 mmol/L (3-11); BUN 18 mg/dL (7-18); CO2 30.1 mmol/L (21.0-32.0); Calcium 9.3 mg/dL (8.5-10.1); Chloride 103 mmol/L (98-107); Estimated GFR 114.15 (mL/min/1.73m2); Glucose 108 mg/dL (74-106); Potassium 4.0 mmol/L (3.5-5.1); Sodium 141 mmol/L (136-145)
[2025-05-11 09:16] LABS: Troponin I < 4 ng/L (<or=51)
[2025-05-11 10:19] LABS: Troponin I < 4 ng/L (<or=51)
== END 2025-05-11 10:46 | disposition home or self-care (01) ==
PROVIDERS: Emergency Provider Emergency Medicine; PCP Nurse Practitioner Family
DX: R42 Dizziness and giddiness (principal); R11.0 Nausea; E11.9 Type 2 diabetes mellitus without complications
CPT/HCPCS: 99283; 99284; 36415; 36416; 82962; 80048; 93005; 84484; 85025; 93010

== ENCOUNTER 2025-06-19 14:56 | Emergency (ER) | payer MEDICAID, SELFPAY ==
[2025-06-19 15:00] VITALS: BP 138/76; PULSE 81; RESP 16; TEMP 36.7; O2SAT 99
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
[2025-06-19 17:59] LABS: Abs Immature Grans 0.03 10^3/uL (0.0-0.06); HCT 37.0 % (36.0-46.0); HGB 12.6 g/dL (11.2-15.7); Immature Grans % 0.3 %; MCH 29.0 pg (27.0-33.0); MCHC 34.1 % (32.0-36.0); MCV 85 fL (80-95); MPV 9.8 fL (8.0-11.0); Platelet Count 265 10^3/uL (130-400); RBC 4.34 10^6/uL (3.93-5.22); RDW 11.8 % (11.7-14.6); RDW-SD 36.3 fL; WBC 11.70 10^3/uL (4.4-10.8)
[2025-06-19 18:15] LABS: Lipase 28 U/L (<53); Magnesium 1.9 mg/dL (1.6-2.6)
[2025-06-19] MEDS: Normal Saline 500 ML IV (18:16)
[2025-06-19 18:17] LABS: ALT 24 U/L (10-49); AST 23 U/L (<34); Albumin 4.2 g/dL (3.4-5.0); Alkaline Phosphatase 77 U/L (46-116); Anion Gap 8.4 mmol/L (3-11); BUN 16 mg/dL (9-23); Bilirubin, Total 0.20 mg/dL (0.2-1.2); CO2 29.6 mmol/L (20.0-31.0); Calcium 9.3 mg/dL (8.3-10.6); Chloride 107 mmol/L (98-107); Glucose 83 mg/dL (74-106); Potassium 3.8 mmol/L (3.5-5.1); Sodium 145 mmol/L (136-145); Total Protein 7.0 g/dL (5.7-8.2)
[2025-06-19] MEDS: Ondansetron 4 MG/2 ML VIAL IVP (18:17)
[2025-06-19 18:23] VITALS: BP 138/76; PULSE 81; RESP 16; TEMP 36.7; O2SAT 99
[2025-06-19 18:32] LABS: Glucose Negative (Negative)
[2025-06-19] MEDS: Omnipaque 350 MG/ML 100 ML BTL IJ (18:58)
[2025-06-19] MEDS: Normal Saline - Diluent 50 ML VIAL IJ (18:58)
[2025-06-19] MEDS: Normal Saline Flush 10 ML SYR IVP (18:59)
--- NOTE | 2025-06-19 19:01 | DI.CT_ITS ---
Exam(s) CT ABDOMEN PELVIS W EXAM: CT ABDOMEN PELVIS W CLINICAL HISTORY: Vomiting, Upper abd pain. TECHNIQUE: Imaging Protocol: Axial computed tomography images with coronal and sagittal reformatted images were created and reviewed CONTRAST MATERIAL: Intravenous: Omnipaque 350 Contrast volume:75 ml Oral: no COMPARISON: CT CT ABDOMEN PELVIS W from 01/11/2025 FINDINGS: ABDOMEN and PELVIS: Lung Bases: No acute findings. Liver: Normal density. No suspicious mass. Gallbladder and biliary tract: No radiodense calculus. No wall thickening or pericholecystic fluid. No biliary dilation. Pancreas: Normal density. No abnormal calcifications or inflammatory process. No evidence of mass. Spleen: Normal. Kidneys: Normal size, contour and axis. No radiodense stones. No obstructive uropathy. No suspicious masses seen. Adrenal glands: No masses seen. Vasculature: Abdominal aorta non-dilated. Soft tissues: Unremarkable. Bladder: Nearly empty. No gross wall thickening. No calculi.No focal mass. Bowel: Suture material at fundus of the stomach. The stomach is not abnormally distended. Left upper quadrant anastomosis is unremarkable, not abnormally dilated. No obstruction. No bowel wall thickening. Moderate quantity of stool. Appendix normal. Peritoneal cavity: No ascites. No focal collection. No mesenteric inflammatory response. No free air. Bones: Posterior fusion hardware and laminectomies noted in the lower lumbar spine. Chronic deformity of the left ilium. Reproductive organs: Hysterectomy. Lymph nodes: No pathologically enlarged lymph nodes. IMPRESSION:: No acute abnormality in the abdomen or pelvis. RADIATION DOSE DELIVERED: Total DLP DATA REPOSITORY: All CT scans at this facility are submitted to the National Radiology Data Registry (NRDR) Dose Index Registry (DIR) with the [employer] (A[employer]). RADIATION OPTIMIZATION: All CT scans at this facility use at least one of these dose optimization techniques: automated exposure control; mA and/or kV adjustment per patient size (includes targeted exams where dose is matched to clinical indication); or iterative reconstruction.
[2025-06-19] MEDS: Ondansetron O.D.T. 4 MG TABEF, 3 TABS/BTL PO (19:27)
[2025-06-19 19:32] VITALS: PULSE 82; O2SAT 100
[2025-06-19 19:33] VITALS: BP 144/78; PULSE 79
[2025-06-19 19:36] VITALS: BP 144/78; PULSE 79; RESP 16; TEMP 36.7; O2SAT 100
== END 2025-06-19 19:37 | disposition home or self-care (01) ==
PROVIDERS: Emergency Provider Registered Nurse Emergency; PCP Nurse Practitioner Family
DX: R11.2 Nausea with vomiting, unspecified (principal); R10.12 Left upper quadrant pain; R10.32 Left lower quadrant pain; I10 Essential (primary) hypertension; E11.9 Type 2 diabetes mellitus without complications; Z98.84 Bariatric surgery status; Z87.891 Personal history of nicotine dependence
CPT/HCPCS: 80053; 83690; 96361; 96374; 99285; 74177; 81003; 83735; 85025; 99284; J2405; J3490

== ENCOUNTER 2025-07-19 08:52 | Emergency (ER) | payer MEDICAID, SELFPAY ==
[2025-07-19 09:06] VITALS: BP 113/72; PULSE 71; RESP 16; O2SAT 97
== END 2025-07-19 18:30 ==
PROVIDERS: PCP Nurse Practitioner Family
DX: Z53.20 Procedure and treatment not carried out because of patient's decision for unspecified reasons (principal)